=== PATIENT | male | born 1935 | race Two or more races ===

== ENCOUNTER 2016-03-15 11:42 | Inpatient (IN) | payer MEDICARE, OTHER ==
[~2016-03-15] VITALS: Ht 162.6 cm; Wt 59.0 kg
[~2016-03-15 11:42] MED LIST: BENAZEPRIL HCL10 MG ORAL; GLIPIZIDE5 MG ORAL; LOPID600 MG ORAL; NOVOLIN 70/305 UNIT1 SUBQ; NOVOLOG MI100 UNITS/ SUBQ
[2016-03-15] MEDS ORDERED: NKM (11:57)
[2016-03-15 12:30] VITALS: BP 158/72
[2016-03-15 13:10] LABS: BASOPHILS % (AUTO) 0.6 % (0.0-2.0); EOSINOPHILS % (AUTO) 2.1 % (0.0-3.0); LYMPHOCYTES % (AUTO) 23.6 % (20.0-45.0); MEAN CORPUSCULAR HEMOGLOBIN 28.8 PG (27.0-31.0); MEAN CORPUSCULAR HGB CONC 31.6 G/DL (32.0-36.0); MEAN CORPUSCULAR VOLUME 91 FL (80-99); MEAN PLATELET VOLUME 6.1 FL (6.5-10.1); MONOCYTES % (AUTO) 6.7 % (1.0-10.0); NEUTROPHILS % (AUTO) 66.9 % (45.0-75.0); PLATELET COUNT 354 K/UL (150-450); RED BLOOD COUNT 4.37 M/UL (4.70-6.10); RED CELL DISTRIBUTION WIDTH 13.8 % (11.6-14.8); WHITE BLOOD COUNT 10.6 K/UL (4.8-10.8)
[2016-03-15 13:23] LABS: TROPONIN I < 0.30 ng/mL (<=0.30)
[2016-03-15 13:24] LABS: ALANINE AMINOTRANSFERASE 6 U/L (3-41); ALBUMIN/GLOBULIN RATIO 0.7 (1.0-2.7); ANION GAP 12 (5-15); ASPARTATE AMINO TRANSFERASE 9 U/L (5-40); CALCIUM 8.7 mg/dL (8.6-10.2); CARBON DIOXIDE 32 mEQ/L (20-30); CHLORIDE 94 mEQ/L (98-107); CREATININE 3.1 mg/dL (0.7-1.2); HEMOLYSIS 3; POTASSIUM 3.6 mEQ/L (3.4-4.9); PROTHROMBIN TIME 9.7 SEC (9.30-11.50); SODIUM 138 mEQ/L (135-145); TOTAL PROTEIN 7.5 g/dL (6.6-8.7)
[2016-03-15 13:34] LABS: CKMB 1.7 ng/mL (< 6.7)
[2016-03-15 13:51] VITALS: BP 168/82
[2016-03-15] MEDS ORDERED: Lidocaine 1% 10mg/ml/Epi 0.005mg/ml 30ml vial INJ ONE (14:15)
[2016-03-15] MEDS ORDERED: Heparin Sod 1000 units/ml 10ml INJ ONE (14:15)
--- NOTE | 2016-03-15 15:00 | Emergency Room Report ---
History of Present Illness General Chief Complaint: General Complaint Source: Patient, Family Member Present Illness HPI Patient reports that he had dialysis on Sunday Today on attempting dialysis the catheter was not flushing Patient has a history of renal failure long-standing Has some questionable mild shortness of breath Denies any chest pain denies any back or flank pain Patient denies any fevers or chills As the patient was unable to get dialyzed he was sent to the ER for further eval The catheter is reported to have been placed last and the patient was here which appears to be on December Allergies: Coded Allergies: No Known Allergies (Unverified , 05/25/13) Patient History Past Medical History: see triage record Pertinent Family History: none Reviewed Nursing Documentation: PMH: Agreed, PSxH: Agreed Nursing Documentation-PMH Hx Cardiac Problems: Yes Hx Hypertension: Yes Hx Diabetes: Yes Hx Cancer: No Hx Gastrointestinal Problems: No Hx Dialysis: Yes - M W F Hx Neurological Problems: Yes Hx Cerebrovascular Accident: Yes Review of Systems All Other Systems: negative except mentioned in HPI Physical Exam Vital Signs Date Time Temp Pulse Resp B/P Pulse Ox O2 Delivery O2 Flow Rate FiO2 03/15/16 11:53 97.7 77 20 151/86 100 Room Air Sp02 EP Interpretation: reviewed, normal General Appearance: well appearing, no apparent distress Head: normocephalic, atraumatic Eyes: bilateral eye EOMI, bilateral eye PERRL ENT: hearing grossly normal, normal pharynx, TMs + canals normal, uvula midline Neck: full range of motion, supple, no meningismus, no bony tend Respiratory: lungs clear, normal breath sounds, no rhonchi, no respiratory distress, no retraction, no accessory muscle use Cardiovascular #1: normal peripheral pulses, regular rate, rhythm, no edema, no gallop, no JVD, no murmur Gastrointestinal: normal bowel sounds, non tender, soft, no mass, no organomegaly, non-distended, no guarding, no hernia, no pulsatile mass, no rebound Genitourinary: no CVA tenderness Musculoskeletal: normal inspection Neurologic: oriented x3, responsive, coffee urn attendant III-XII nml as tested, motor strength/ tone normal, sensory intact Psychiatric: mood/affect normal Skin: normal color, no rash, warm/dry, palpation normal Lymphatic: normal inspection, no adenopathy Medical Decision Making Diagnostic Impression: Primary Impression: acute renal failure Additional Impression: Dialysis complication ER Course Patient's catheters not able to be flushed at this time baseline blood work is obtained Patient's BUN and any are elevated in line with his renal failure potassium at this time is appropriate and did not require any acute intervention Patient has procedure ordered by radiology as negative for further care Labs Test 03/15/16 12:40 White Blood Count 10.6 K/UL (4.8-10.8) Red Blood Count 4.37 M/UL (4.70-6.10) Hemoglobin 12.6 G/DL (14.2-18.0) Hematocrit 39.9 % (42.0-52.0) Mean Corpuscular Volume 91 FL (80-99) Mean Corpuscular Hemoglobin 28.8 PG (27.0-31.0) Mean Corpuscular Hemoglobin Concent 31.6 G/DL (32.0-36.0) Red Cell Distribution Width 13.8 % (11.6-14.8) Platelet Count 354 K/UL (150-450) Mean Platelet Volume 6.1 FL (6.5-10.1) Neutrophils (%) (Auto) 66.9 % (45.0-75.0) Lymphocytes (%) (Auto) 23.6 % (20.0-45.0) Monocytes (%) (Auto) 6.7 % (1.0-10.0) Eosinophils (%) (Auto) 2.1 % (0.0-3.0) Basophils (%) (Auto) 0.6 % (0.0-2.0) Prothrombin Time 9.7 SEC (9.30-11.50) Prothromb Time International Ratio 1.0 (0.9-1.1) Activated Partial Thromboplast Time 28 SEC (23-33) Sodium Level 138 mEQ/L (135-145) Potassium Level 3.6 mEQ/L (3.4-4.9) Chloride Level 94 mEQ/L (98-107) Carbon Dioxide Level 32 mEQ/L (20-30) Anion Gap 12 (5-15) Blood Urea Nitrogen 27 mg/dL (7-23) Creatinine 3.1 mg/dL (0.7-1.2) Estimat Glomerular Filtration Rate mL/min (>60) Glucose Level 374 mg/dL (74-106) Calcium Level 8.7 mg/dL (8.6-10.2) Total Bilirubin < 0.2 mg/dL (0.0-1.2) Aspartate Amino Transf (AST/SGOT) 9 U/L (5-40) Alanine Aminotransferase (ALT/SGPT) 6 U/L (3-41) Alkaline Phosphatase 104 U/L (40-129) Total Creatine Kinase 26 U/L (38-174) Creatine Kinase MB 1.7 ng/mL (< 6.7) Creatine Kinase MB Relative Index 6.5 Troponin I < 0.30 ng/mL (<=0.30) Pro-B-Type Natriuretic Peptide 3384 pg/mL (0-450) Total Protein 7.5 g/dL (6.6-8.7) Albumin 3.3 g/dL (3.5-5.2) Globulin 4.2 g/dL Albumin/Globulin Ratio 0.7 (1.0-2.7) Rhythm Strip Diag. Results EP Interpretation: yes Rate: 77 Rhythm: NSR, no PVC's, no ectopy Chest X-Ray Diagnostic Results EP Interpretation: Yes Findings: no consolidation, no effusion, no pneumothorax Number of Views: 1 Last Vital Signs Date Time Temp Pulse Resp B/P Pulse Ox O2 Delivery O2 Flow Rate FiO2 03/15/16 13:51 73 16 168/82 100 Room Air 03/15/16 11:53 97.7 Status: improved Disposition: ADMITTED INPATIENT Condition: Serious Referrals: NON PHYSICIAN (PCP) DHARA AUSTIN D.O. Mar 15, 2016 15:00
--- NOTE | 2016-03-15 16:11 | Infectious Diseases Prog Note ---
Assessment/Plan Problems: (1) Dialysis catheter clot or failure Assessment & Plan: rule out sepsis, will send blood culture, recommend removal of the catheter and tip culture (2) Diabetes Assessment & Plan: recommend tight glycemic control to keep blood glucose between 80-120 (3) CVA (cerebral vascular accident) Assessment & Plan: stable, continue meds , follow with neurology Subjective Allergies: Coded Allergies: No Known Allergies (Unverified , 05/25/13) Objective Vital Signs Last 24 Hour Vital Signs Date Time Temp Pulse Resp B/P Pulse Ox O2 Delivery O2 Flow Rate FiO2 03/15/16 15:27 97.7 73 16 168/82 100 Room Air 03/15/16 13:51 73 16 168/82 100 Room Air 03/15/16 12:30 73 16 158/72 100 Room Air 03/15/16 11:53 97.7 77 20 151/86 100 Room Air Height (Feet): 5 Height (Inches): 4.00 Weight (Pounds): 130 Laboratory Tests Test 03/15/16 12:40 White Blood Count 10.6 K/UL (4.8-10.8) Red Blood Count 4.37 M/UL (4.70-6.10) L Hemoglobin 12.6 G/DL (14.2-18.0) L Hematocrit 39.9 % (42.0-52.0) L Mean Corpuscular Volume 91 FL (80-99) Mean Corpuscular Hemoglobin 28.8 PG (27.0-31.0) Mean Corpuscular Hemoglobin Concent 31.6 G/DL (32.0-36.0) L Red Cell Distribution Width 13.8 % (11.6-14.8) Platelet Count 354 K/UL (150-450) Mean Platelet Volume 6.1 FL (6.5-10.1) L Neutrophils (%) (Auto) 66.9 % (45.0-75.0) Lymphocytes (%) (Auto) 23.6 % (20.0-45.0) Monocytes (%) (Auto) 6.7 % (1.0-10.0) Eosinophils (%) (Auto) 2.1 % (0.0-3.0) Basophils (%) (Auto) 0.6 % (0.0-2.0) Prothrombin Time 9.7 SEC (9.30-11.50) Prothromb Time International Ratio 1.0 (0.9-1.1) Activated Partial Thromboplast Time 28 SEC (23-33) Sodium Level 138 mEQ/L (135-145) Potassium Level 3.6 mEQ/L (3.4-4.9) Chloride Level 94 mEQ/L (98-107) L Carbon Dioxide Level 32 mEQ/L (20-30) H Anion Gap 12 (5-15) Blood Urea Nitrogen 27 mg/dL (7-23) H Creatinine 3.1 mg/dL (0.7-1.2) H Estimat Glomerular Filtration Rate mL/min (>60) Glucose Level 374 mg/dL (74-106) H Calcium Level 8.7 mg/dL (8.6-10.2) Total Bilirubin < 0.2 mg/dL (0.0-1.2) Aspartate Amino Transf (AST/SGOT) 9 U/L (5-40) Alanine Aminotransferase (ALT/SGPT) 6 U/L (3-41) Alkaline Phosphatase 104 U/L (40-129) Total Creatine Kinase 26 U/L (38-174) L Creatine Kinase MB 1.7 ng/mL (< 6.7) Creatine Kinase MB Relative Index 6.5 Troponin I < 0.30 ng/mL (<=0.30) Pro-B-Type Natriuretic Peptide 3384 pg/mL (0-450) H Total Protein 7.5 g/dL (6.6-8.7) Albumin 3.3 g/dL (3.5-5.2) L Globulin 4.2 g/dL Albumin/Globulin Ratio 0.7 (1.0-2.7) L Jovita Mtz M.D. Mar 15, 2016 16:11
--- NOTE | 2016-03-15 16:15 | Consultation ---
Consult Note Consult Note HPI Patient reports that he had dialysis on Sunday Today on attempting dialysis the catheter was not flushing Patient has a history of renal failure long-standing Has some questionable mild shortness of breath Denies any chest pain denies any back or flank pain Patient denies any fevers or chills As the patient was unable to get dialyzed he was sent to the ER for further eval The catheter is reported to have been placed last and the patient was here which appears to be on December Hx Cardiac Problems: Yes Hx Hypertension: Yes Hx Diabetes: Yes Hx Dialysis: Yes - [facility] Hx Neurological Problems: Yes Hx Cerebrovascular Accident: Yes Assessment/Plan Status: Chronic renal failure- on HD h/o Metabolic Acidosis- h/o UTI DM OOC Change the Cath- HD- JILL MACEDO Mar 15, 2016 16:15
[2016-03-15 16:19] VITALS: BP 161/82
[2016-03-15] MEDS: GlipiZIDE 5mg tab ORAL SCH (18:15)
[2016-03-15 20:56] VITALS: BP 152/68
--- NOTE | 2016-03-15 22:18 | Consultation ---
DATE OF CONSULTATION: INFECTIOUS DISEASE CONSULTATION REQUESTING PHYSICIAN: Dolly Narvaez M.D. REASON FOR CONSULTATION: Malfunctioning dialysis catheter, rule out infection and sepsis. HISTORY OF PRESENT ILLNESS: The patient is an 80-year-old male with end-stage renal disease, on hemodialysis who had his dialysis catheter placed here in December last year, was sent to the emergency room for not being able to dialyze him at the dialysis center. The patient had his dialysis on Sunday, was supposed to get one today, but multiple attempts to dialyze him was not successful. The catheter was not flushing, so he was sent to the emergency room for possible evaluation of his dialysis catheter and removal with placement of a new hemodialysis catheter. There was some concern about catheter infection. So I was consulted by the primary provider for antibiotics recommendation and further evaluation. As of note, the patient is poor historian, cannot provide any history. PAST MEDICAL HISTORY: Significant for coronary artery disease, hypertension, diabetes, end-stage renal disease, on hemodialysis Sunday, Sunday, Sunday, CVA and dementia. PAST SURGICAL HISTORY: He had hemodialysis catheter placement in December last year. MEDICATIONS: He is on glipizide, benazepril, and gemfibrozil. ALLERGIES: He has no known drug allergy. SOCIAL HISTORY: Unable to obtain. FAMILY HISTORY: Unable to obtain. REVIEW OF SYSTEMS: Unable to obtain at this point. LABORATORY AND DIAGNOSTIC DATA: White count 10.6, hemoglobin 12.6, hematocrit of 39.9, and platelet count of 354,000. BUN of 27 and creatinine of 3.1. AST of 9, ALT of 6 and alkaline phosphatase of 104. INR of 1. PHYSICAL EXAMINATION: VITAL SIGNS: Temperature 97 degrees, pulse 75, respirations 20, blood pressure 161/82, and pulse oximetry 100% on room air. GENERAL: This is an elderly male in bed, awake, alert, oriented, not in distress. HEENT: Normocephalic and atraumatic. Pupils both reactive to light equally. Moist oral mucosa. NECK: Supple. No lymphadenopathy. CARDIOVASCULAR: Regular rate and rhythm. No murmur. LUNGS: Clear bilaterally. No wheezing or rhonchi. Normal breathing efforts. ABDOMEN: Soft, nontender, and nondistended. Positive bowel sounds. No hepatosplenomegaly. No ascites. EXTREMITIES: No edema. No cyanosis. ASSESSMENT AND PLAN: 1. Dialysis catheter clot of failure, rule out sepsis. We will send blood culture. Recommend removal of the catheter and same to be sent for culture. We will keep off antibiotics for now. Site does not look infected. 2. Diabetes. Recommend tight glycemic control to keep blood glucose between 80 to 120. 3. Cerebrovascular accident, stable. Continue medications. Follow up with Neurology. Jovita Mtz M.D. DR: SALOME JOB#: [id number] CC:
[2016-03-16] VITALS (12 sets, daily range): BP systolic 123–195; BP diastolic 50–101
--- NOTE | 2016-03-16 02:07 | Consultation ---
DATE OF CONSULTATION: 03/15/2016 HEMATOLOGY/ONCOLOGY CONSULTATION REQUESTING PHYSICIAN: Dolly Narvaez M.D. REASON FOR CONSULTATION: Evaluation of anemia. IDENTIFICATION: Dear Dr. Brice Alberto, The patient is a pleasant 80-year-old male well known to me. I have evaluated the patient back in December 2015 with a past medical history significant for end-stage renal disease, on hemodialysis, anemia secondary to kidney disease, anemia secondary to chronic disease with history of leukocytosis, metabolic acidosis, and end-stage renal disease, at this time presents with a malfunctioning access, gets dialysis three times a week and at this time is unable to get dialysis. The access to the right subclavian is rather new, placed about two months ago. He is Turkish speaking only and only oriented to person, daughter was by the bedside at the time of the examination. PAST MEDICAL HISTORY: Hypertension, diabetes mellitus, dyslipidemic, CKD, and stroke with associated left-sided weakness. PAST SURGICAL HISTORY: Subclavian access. MEDICATIONS: Currently unknown. The patient's daughter is unable to provide information. ALLERGIES: No known drug allergies. FAMILY HISTORY: High blood pressure, diabetes mellitus. REVIEW OF SYSTEMS: Difficult to obtain as the patient is only oriented to person. PHYSICAL EXAMINATION: GENERAL: The patient is in distress. VITAL SIGNS: Temperature is 97.7 degrees Fahrenheit, pulse 77, respiratory rate 12, blood pressure 168/82, and pulse oximetry 100% on room air. PULMONARY: Decreased breath sounds. CARDIOVASCULAR: Regular rate. GASTROINTESTINAL: Abdomen is soft, nontender, and nondistended. No ascites. EXTREMITIES: Has 1+ edema. LABORATORY AND DIAGNOSTIC DATA: WBC 7.6, hemoglobin 12.6, hematocrit 40, and platelet count of 254,000. BUN of 27 and creatinine 0.1. INR of 1. IMAGING: Duplex of the lower extremities shows no evidence of DVT from December 2015. ASSESSMENT: 1. Anemia, secondary to kidney disease. 2. Anemia, secondary to chronic disease. 3. Malfunctioning subclavian access, continue to monitor, to be seen by IR. 4. History of leukocytosis, now resolved. 5. Chronic renal failure, on hemodialysis. 6. History of hyperkalemia, currently resolved. 7. History of stroke. 8. Diabetes mellitus. RECOMMENDATIONS: 1. Monitor counts. 2. Maintain hemoglobin above 7 and platelet count above 10,000. 3. DVT prophylaxis with heparin. 4. GI prophylaxis as needed. 5. Pain control. 6. Malfunctioning access repair. 7. Hemodialysis three times a week to continue. 8. Imaging review. 9. Peripheral smear ordered. 10. We will order for ferritin. 11. Followup on other service recommendations. 12. Discussed with staff. Thank you, Dr. Brice Alberto, for this kind referral. Please do not hesitate to contact me if you have any further questions. Gigi Aguirre M.D. DR: MER JOB#: [id number] CC:
[2016-03-16] MEDS: GlipiZIDE 5mg tab ORAL SCH ×2 (05:58→18:20)
[2016-03-16 07:02] LABS: BASOPHILS % (AUTO) 0.8 % (0.0-2.0); EOSINOPHILS % (AUTO) 2.5 % (0.0-3.0); LYMPHOCYTES % (AUTO) 28.2 % (20.0-45.0); MEAN CORPUSCULAR HGB CONC 31.8 G/DL (32.0-36.0); MEAN CORPUSCULAR VOLUME 91 FL (80-99); MONOCYTES % (AUTO) 7.4 % (1.0-10.0); PLATELET COUNT 346 K/UL (150-450); RED BLOOD COUNT 4.14 M/UL (4.70-6.10); RED CELL DISTRIBUTION WIDTH 13.7 % (11.6-14.8)
[2016-03-16 07:37] LABS: ALANINE AMINOTRANSFERASE 6 U/L (3-41); ALBUMIN/GLOBULIN RATIO 0.7 (1.0-2.7); ANION GAP 13 (5-15); ASPARTATE AMINO TRANSFERASE 10 U/L (5-40); CALCIUM 8.8 mg/dL (8.6-10.2); CARBON DIOXIDE 30 mEQ/L (20-30); CHLORIDE 95 mEQ/L (98-107); CHOLESTEROL 182 mg/dL (< 200); CHOLESTEROL/HDL RATIO 5.9 (3.3-4.4); CREATININE 3.1 mg/dL (0.7-1.2); CRP QUANT 2.1 mg/dL (< 0.5); HEMOLYSIS 2; LDL CHOLESTEROL (CALC.) 99 mg/dL (60-99); MAGNESIUM 1.8 mg/dL (1.7-2.5); POTASSIUM 4.1 mEQ/L (3.4-4.9); SODIUM 138 mEQ/L (135-145); TOTAL PROTEIN 7.4 g/dL (6.6-8.7); URIC ACID 6.4 mg/dL (3.0-7.5)
[2016-03-16 07:56] LABS: HEMOGLOBIN A1C 10.4 % (< 6.0)
[2016-03-16] MEDS ORDERED: Lidocaine 1% Plain 30 ml INJ ONE (10:00)
[2016-03-16] MEDS ORDERED: Sodium Bicarbonate 8.4% 50ml Inj IV ONE (10:00)
[2016-03-16] MEDS ORDERED: Heparin 2000 units/Ns 1000ml INJ ONE (10:00)
[2016-03-16] MEDS ORDERED: Lidocaine 1% 10mg/ml/Epi 0.005mg/ml 30ml vial INJ ONE (10:00)
[2016-03-16] MEDS ORDERED: Heparin Sod 1000 units/ml 10ml INJ ONE (10:00)
[2016-03-16] MEDS: Benazepril 10mg tab ORAL SCH ×2 (13:53→21:51)
--- NOTE | 2016-03-16 15:09 | General Progress Note ---
Assessment/Plan Status: stable Status Narrative radiologist found the catheter functioning ! Assessment/Plan Chronic renal failure- on HD h/o Metabolic Acidosis- h/o UTI DM OOC Plan: HD in am- BS control- DC if stable in am Subjective ROS Limited/Unobtainable: No Constitutional: Reports: malaise Allergies: Coded Allergies: No Known Allergies (Unverified , 05/25/13) Objective Last 24 Hour Vital Signs Date Time Temp Pulse Resp B/P Pulse Ox O2 Delivery O2 Flow Rate FiO2 03/16/16 13:53 140/78 03/16/16 12:25 97.9 78 20 129/50 97 Room Air 03/16/16 11:05 70 10 163/75 100 Room Air 03/16/16 11:00 71 14 158/79 98 Room Air 03/16/16 10:55 72 25 138/69 98 Room Air 03/16/16 10:50 72 19 159/77 99 Room Air 03/16/16 09:59 72 19 03/16/16 08:54 97.7 68 19 123/70 97 Room Air 03/16/16 04:00 97.7 72 18 147/74 98 Room Air 03/16/16 00:00 97.7 78 18 158/85 100 Room Air 03/15/16 20:56 76 152/68 03/15/16 18:15 161/82 03/15/16 16:19 97.0 75 20 161/82 100 Room Air 03/15/16 15:27 97.7 73 16 168/82 100 Room Air Intake and Output 03/15/16 03/16/16 19:00 07:00 Intake Total 360 ml 400 ml Balance 360 ml 400 ml Intake Oral 360 ml 400 ml # Voids 1 2 # Bowel Movements 2 Laboratory Tests 03/16/16 05:00: White Blood Count 10.0, Red Blood Count 4.14L, Hemoglobin 12.0L, Hematocrit 37.7L, Mean Corpuscular Volume 91, Mean Corpuscular Hemoglobin 29.0, Mean Corpuscular Hemoglobin Concent 31.8L, Red Cell Distribution Width 13.7, Platelet Count 346, Mean Platelet Volume 6.0L, Neutrophils (%) (Auto) 61.0, Lymphocytes (%) (Auto) 28.2, Monocytes (%) (Auto) 7.4, Eosinophils (%) (Auto) 2.5, Basophils (%) (Auto) 0.8, Sodium Level 138, Potassium Level 4.1, Chloride Level 95L, Carbon Dioxide Level 30, Anion Gap 13, Blood Urea Nitrogen 30H, Creatinine 3.1H, Estimat Glomerular Filtration Rate , Glucose Level 184#H, Hemoglobin A1c 10.4H, Uric Acid 6.4, Calcium Level 8.8, Phosphorus Level 3.0, Magnesium Level 1.8, Total Bilirubin 0.2, Aspartate Amino Transf (AST/SGOT) 10, Alanine Aminotransferase (ALT/SGPT) 6, Alkaline Phosphatase 108, C-Reactive Protein, Quantitative 2.1H, Pro-B-Type Natriuretic Peptide 3308H, Total Protein 7.4, Albumin 3.2L, Globulin 4.2, Albumin/Globulin Ratio 0.7L, Triglycerides Level 260H, Cholesterol Level 182, LDL Cholesterol 99, HDL Cholesterol 31, Cholesterol/HDL Ratio 5.9H Height (Feet): 5 Height (Inches): 4.00 Weight (Pounds): 130 General Appearance: no apparent distress Objective PE not changed JILL MACEDO Mar 16, 2016 15:09
--- NOTE | 2016-03-16 16:58 | Diagnostic Imaging Report ---
Indication:Elevated Bun and Creatinine. Technique: Grayscale and duplex Doppler imaging of the kidneys performed. Comparison: CT of 12/31/15 Findings: There is bilateral hydronephrosis, moderate in degree. This was noted on the previous CT as well and may be on the basis of the prostate hypertrophy. Consultation by urologic surgeon is suggested. Cystoscopy may be needed. The urinary bladder is notable for a fluid debris level as well as at 1.67 m stone noted within the bladder lumen. The bladder is mildly distended. Trabeculation and slight thickening of the wall the urinary bladder noted. Prostate gland is enlarged measures 7 x 4.8 x 5.9 cm, which corresponds to prostate volume of approximately 100 cc. IVC is unremarkable in appearance. Both kidneys measure about 10-11 CM in length. Cortical echogenicity is abnormally increased which is suggestive of medical renal disease. Impression: Moderate bilateral hydronephrosis. Previous CT examination showed similar findings. The finding is likely associated with the abnormal urinary bladder and/or involvement of the bladder base by an enlarged prostate gland or mass. Further evaluation by a urologist is recommended. Bladder calculus with intraluminal debris and/or blood. Echogenic kidneys consistent with medical renal disease.
--- NOTE | 2016-03-16 17:33 | Infectious Diseases Prog Note ---
Assessment/Plan Problems: (1) Dialysis catheter clot or failure Assessment & Plan: rule out sepsis, await blood culture, S/P HD cath removal. (2) Diabetes Assessment & Plan: recommend tight glycemic control to keep blood glucose between 80-120 (3) CVA (cerebral vascular accident) Assessment & Plan: stable, continue meds , follow with neurology Subjective Constitutional: Denies: anorexia, chills, drenching sweats, fatigue, fever, no symptoms, other HEENT: Denies: congestion, coryza, dysphagia, hearing change, no symptoms, other, visual change Respiratory: Denies: dry cough, no symptoms, other, productive cough, shortness of breath Breasts: Denies: discharge, no symptoms, other, swelling, tenderness Cardiovascular: Denies: chest pain, dyspnea on exertion, no symptoms, other, palpitations Gastrointestinal/Abdominal: Denies: bloating, blood in stool, constipation, diarrhea, nausea, no symptoms, other, vomiting Genitourinary: Denies: dysuria, frequency, hematuria, no symptoms, nocturia, other Neurologic: Denies: confusion, headache, no symptoms, numbness, other, weakness Psychiatric: Denies: anxiety, depression, no symptoms, other Allergies: Coded Allergies: No Known Allergies (Unverified , 05/25/13) Subjective he was doing well, had new HD cath placed with site looks intact, no skin redness or discharge. denied any fever or chills. Objective Vital Signs Last 24 Hour Vital Signs Date Time Temp Pulse Resp B/P Pulse Ox O2 Delivery O2 Flow Rate FiO2 03/16/16 13:53 140/78 03/16/16 12:25 97.9 78 20 129/50 97 Room Air 03/16/16 11:05 70 10 163/75 100 Room Air 03/16/16 11:00 71 14 158/79 98 Room Air 03/16/16 10:55 72 25 138/69 98 Room Air 03/16/16 10:50 72 19 159/77 99 Room Air 03/16/16 09:59 72 19 03/16/16 08:54 97.7 68 19 123/70 97 Room Air 03/16/16 04:00 97.7 72 18 147/74 98 Room Air 03/16/16 00:00 97.7 78 18 158/85 100 Room Air 03/15/16 20:56 76 152/68 03/15/16 18:15 161/82 Height (Feet): 5 Height (Inches): 4.00 Weight (Pounds): 130 General Appearance: WD/WN, no acute distress HEENT: normocephalic, atraumatic, anicteric, mucous membranes moist Respiratory/Chest: chest wall non-tender, lungs clear, normal breath sounds, no respiratory distress, no accessory muscle use Cardiovascular: normal peripheral pulses, normal rate, regular rhythm, no gallop/murmur, no JVD Abdomen: normal bowel sounds, soft, non tender, no organomegaly, non distended , no mass Extremities: no cyanosis, no clubbing Skin: no rash, no lesions, no ulcers Laboratory Tests Test 03/16/16 05:00 White Blood Count 10.0 K/UL (4.8-10.8) Red Blood Count 4.14 M/UL (4.70-6.10) L Hemoglobin 12.0 G/DL (14.2-18.0) L Hematocrit 37.7 % (42.0-52.0) L Mean Corpuscular Volume 91 FL (80-99) Mean Corpuscular Hemoglobin 29.0 PG (27.0-31.0) Mean Corpuscular Hemoglobin Concent 31.8 G/DL (32.0-36.0) L Red Cell Distribution Width 13.7 % (11.6-14.8) Platelet Count 346 K/UL (150-450) Mean Platelet Volume 6.0 FL (6.5-10.1) L Neutrophils (%) (Auto) 61.0 % (45.0-75.0) Lymphocytes (%) (Auto) 28.2 % (20.0-45.0) Monocytes (%) (Auto) 7.4 % (1.0-10.0) Eosinophils (%) (Auto) 2.5 % (0.0-3.0) Basophils (%) (Auto) 0.8 % (0.0-2.0) Sodium Level 138 mEQ/L (135-145) Potassium Level 4.1 mEQ/L (3.4-4.9) Chloride Level 95 mEQ/L (98-107) L Carbon Dioxide Level 30 mEQ/L (20-30) Anion Gap 13 (5-15) Blood Urea Nitrogen 30 mg/dL (7-23) H Creatinine 3.1 mg/dL (0.7-1.2) H Estimat Glomerular Filtration Rate mL/min (>60) Glucose Level 184 mg/dL (74-106) #H Hemoglobin A1c 10.4 % (< 6.0) H Uric Acid 6.4 mg/dL (3.0-7.5) Calcium Level 8.8 mg/dL (8.6-10.2) Phosphorus Level 3.0 mg/dL (2.5-4.8) Magnesium Level 1.8 mg/dL (1.7-2.5) Total Bilirubin 0.2 mg/dL (0.0-1.2) Aspartate Amino Transf (AST/SGOT) 10 U/L (5-40) Alanine Aminotransferase (ALT/SGPT) 6 U/L (3-41) Alkaline Phosphatase 108 U/L (40-129) C-Reactive Protein, Quantitative 2.1 mg/dL (< 0.5) H Pro-B-Type Natriuretic Peptide 3308 pg/mL (0-450) H Total Protein 7.4 g/dL (6.6-8.7) Albumin 3.2 g/dL (3.5-5.2) L Globulin 4.2 g/dL Albumin/Globulin Ratio 0.7 (1.0-2.7) L Triglycerides Level 260 mg/dL (< 150) H Cholesterol Level 182 mg/dL (< 200) LDL Cholesterol 99 mg/dL (60-99) HDL Cholesterol 31 mg/dL (> 60) Cholesterol/HDL Ratio 5.9 (3.3-4.4) H Current Medications Medications (Trade) Dose Ordered Sig/Stephany Route PRN Reason Start Time Stop Time Status Last Admin Dose Admin Benazepril HCl (Lotensin) 10 mg Q12HR ORAL 03/16/16 09:00 04/15/16 08:59 03/16/16 13:53 Gemfibrozil (Lopid) 600 mg TWICE A DAY ORAL 03/15/16 21:00 04/14/16 20:59 03/16/16 13:53 Glipizide (Glucotrol) 5 mg BIAC ORAL 03/15/16 16:30 04/14/16 16:29 03/15/16 18:15 Jovita Mtz M.D. Mar 16, 2016 17:33
--- NOTE | 2016-03-16 20:27 | History and Physical Report ---
DATE OF ADMISSION: 03/15/2016 HISTORY OF PRESENT ILLNESS: The patient is a hemodialysis patient. The patient problems with line not working. The patient also is on hemodialysis. The patient also has chronic pain syndrome and the dialysis catheter is not working, it has failed. The patient needs some dialysis and is to be admitted. The patient also has some shortness of breath as well. PAST MEDICAL HISTORY: Hypertension, end-stage renal disease, NIDDM, history of CVA as well as GERD. The patient is getting hemodialysis and hyperlipidemia. PAST SURGICAL HISTORY: Related to dialysis access. ALLERGIES: No known allergy. MEDICATIONS: Unknown medications. At this point, we do not have . SOCIAL HISTORY: The patient denies history of alcohol or use of illicit drugs. FAMILY HISTORY: Noncontributory. REVIEW OF SYSTEMS: HEENT: Denies headaches. Respiratory: Does have shortness of breath. Denies cough. Cardiovascular: No chest pain. Gastrointestinal: Denies nausea, vomiting, or diarrhea. He states that he does have chronic . He does have some pain, which is very mild pain. Extremities: . Central Nervous System: Denies change in vision or speech pattern. Feels weak. PHYSICAL EXAMINATION: VITAL SIGNS: Temperature is 97 degrees, pulse 75 and blood pressure 161/80. HEENT: PERRLA. NECK: Supple. No lymphadenopathy. CHEST: Clear to auscultation. GASTROINTESTINAL: Soft, nontender and nondistended. No organomegaly. EXTREMITIES: No edema. NEUROLOGIC: Reflexes are equal on both sides. Moves all four extremities. LABORATORY AND DIAGNOSTIC DATA: , and platelet 254,000. Sodium 138, potassium 3.6, BUN 27, creatinine 3.1 and glucose 374. ASSESSMENT AND PLAN: Elevated blood sugar, dialysis line. I have asked Dr. Mtz, Dr. Garcia and Dr. Les Marie, and to see the patient to rule out any infectious process as well dialysis line. Dolly Narvaez M.D. DR: JIGNESH JOB#: [id number] CC:
[2016-03-17] VITALS (8 sets, daily range): BP systolic 144–181; BP diastolic 71–94
--- NOTE | 2016-03-17 00:29 | General Progress Note ---
Assessment/Plan Assessment/Plan 1. Anemia, secondary to Chronic kidney disease/ ESRD. 2. Malfunctioning subclavian access, continue to monitor, to be seen by IR. 3. History of hyperkalemia, currently resolved 4. History of leukocytosis, now resolved. 5. Chronic renal failure, on hemodialysis. 6. History of stroke. 8. Diabetes mellitus. RECOMMENDATIONS: 1. Maintain hemoglobin above 7 and platelet count above 10,000. 2. DVT prophylaxis with heparin. 3. GI prophylaxis as needed. 4. Pain control. 5. Malfunctioning access repair. 6. Hemodialysis three times a week to continue. 7. Peripheral smear ordered. 8. We will order for ferritin. 9. Followup on other service recommendations. 10. Discussed with staff. Subjective Constitutional: Reports: no symptoms HEENT: Reports: no symptoms Cardiovascular: Reports: no symptoms Respiratory: Reports: no symptoms Gastrointestinal/Abdominal: Reports: no symptoms Genitourinary: Reports: no symptoms Endocrine: Reports: no symptoms Hematologic/Lymphatic: Reports: anemia Allergies: Coded Allergies: No Known Allergies (Unverified , 05/25/13) Objective Last 24 Hour Vital Signs Date Time Temp Pulse Resp B/P Pulse Ox O2 Delivery O2 Flow Rate FiO2 03/17/16 00:00 97.0 71 20 171/94 99 Room Air 03/16/16 21:51 185/88 03/16/16 21:41 76 185/88 03/16/16 20:12 97.5 77 20 191/89 97 Room Air 03/16/16 18:20 195/101 03/16/16 16:00 97.3 78 20 195/101 100 Room Air 03/16/16 13:53 140/78 03/16/16 12:25 97.9 78 20 129/50 97 Room Air 03/16/16 11:05 70 10 163/75 100 Room Air 03/16/16 11:00 71 14 158/79 98 Room Air 03/16/16 10:55 72 25 138/69 98 Room Air 03/16/16 10:50 72 19 159/77 99 Room Air 03/16/16 09:59 72 19 03/16/16 08:54 97.7 68 19 123/70 97 Room Air Intake and Output 03/16/16 03/16/16 11:00 23:00 Intake Total 0 ml 585 ml Balance 0 ml 585 ml Intake Oral 0 ml 585 ml # Voids 1 3 # Bowel Movements 1 Laboratory Tests 03/16/16 05:00: White Blood Count 10.0, Red Blood Count 4.14L, Hemoglobin 12.0L, Hematocrit 37.7L, Mean Corpuscular Volume 91, Mean Corpuscular Hemoglobin 29.0, Mean Corpuscular Hemoglobin Concent 31.8L, Red Cell Distribution Width 13.7, Platelet Count 346, Mean Platelet Volume 6.0L, Neutrophils (%) (Auto) 61.0, Lymphocytes (%) (Auto) 28.2, Monocytes (%) (Auto) 7.4, Eosinophils (%) (Auto) 2.5, Basophils (%) (Auto) 0.8, Sodium Level 138, Potassium Level 4.1, Chloride Level 95L, Carbon Dioxide Level 30, Anion Gap 13, Blood Urea Nitrogen 30H, Creatinine 3.1H, Estimat Glomerular Filtration Rate , Glucose Level 184#H, Hemoglobin A1c 10.4H, Uric Acid 6.4, Calcium Level 8.8, Phosphorus Level 3.0, Magnesium Level 1.8, Total Bilirubin 0.2, Aspartate Amino Transf (AST/SGOT) 10, Alanine Aminotransferase (ALT/SGPT) 6, Alkaline Phosphatase 108, C-Reactive Protein, Quantitative 2.1H, Pro-B-Type Natriuretic Peptide 3308H, Total Protein 7.4, Albumin 3.2L, Globulin 4.2, Albumin/Globulin Ratio 0.7L, Triglycerides Level 260H, Cholesterol Level 182, LDL Cholesterol 99, HDL Cholesterol 31, Cholesterol/HDL Ratio 5.9H Height (Feet): 5 Height (Inches): 4.00 Weight (Pounds): 130 General Appearance: no apparent distress EENT: PERRL/EOMI Neck: supple Cardiovascular: normal rate Respiratory/Chest: no respiratory distress Extremities: non-tender Edema: 1+ Leg (L), 1+ Leg (R) Skin: warm/dry Gigi Aguirre Mar 17, 2016 00:29
[2016-03-17] MEDS: GlipiZIDE 5mg tab ORAL SCH ×3 (06:29→20:49)
[2016-03-17 07:16] LABS: ANION GAP 14 (5-15); CALCIUM 8.9 mg/dL (8.6-10.2); CARBON DIOXIDE 28 mEQ/L (20-30); CHLORIDE 98 mEQ/L (98-107); HEMOLYSIS 1; POTASSIUM 3.9 mEQ/L (3.4-4.9); SODIUM 140 mEQ/L (135-145)
[2016-03-17] MEDS: Benazepril 10mg tab ORAL SCH ×3 (09:00→20:49)
--- NOTE | 2016-03-17 10:48 | Anethesia Preoperative Eval ---
Anesthesia Pre-op PMH/ROS General Date of Evaluation: Mar 17, 2016 Anesthesiologist: Maximino ASA Score: ASA 3 Mallampati Score Class I : Soft palate, uvula, fauces, pillars visible Class II: Soft palate, uvula, fauces visible Class III: Soft palate, base of uvula visible Class IV: Only hard plate visible Mallampati Classification: Class II Surgeon: Bud Diagnosis: ESRD Surgical Procedure: Left arm AV shunt placement Anesthesia History: none Family History: no anesthesia problems Allergies: Coded Allergies: No Known Allergies (Unverified , 05/25/13) Medications: see eMAR Past Medical History Cardiovascular: Reports: HTN, other - HLD, Denies: CAD, [place], arrhythmia, valve dz Pulmonary: Denies: COPD, JASMIN, asthma, other Gastrointestinal/Genitourinary: Reports: ESRD - on HD-M,W,F, GERD, Denies: CRI, other Neurologic/Psychiatric: Reports: CVA, other - chronic pain syndrome, Denies: TIA, dementia, depression/anxiety Endocrine: Reports: DM, Denies: hypothyroidism, other, steroids HEENT: Denies: EKWOK (L), EKWOK (R), cataract (L), cataract (R), glaucoma, other Hematology/Immune: Reports: anemia - chronic, Denies: DVT, bleeding disorder, other Musculoskeletal/Integumentary: Denies: DDD, DJD, OA, RA, edema, other PSxH Narrative: ex-lap Anesthesia Pre-op Phys. Exam Physician Exam Last Vital Signs Date Time Temp Pulse Resp B/P Pulse Ox O2 Delivery O2 Flow Rate FiO2 03/17/16 09:00 144/73 03/17/16 08:54 98.0 67 20 99 Room Air Constitutional: NAD Cardiovascular: RRR Respiratory: CTA Airway Exam Mallampati Score: Class II Anesthesia Pre-op A/P Labs Chemistry Test 03/17/16 05:15 Sodium Level 140 mEQ/L (135-145) Potassium Level 3.9 mEQ/L (3.4-4.9) Chloride Level 98 mEQ/L (98-107) Carbon Dioxide Level 28 mEQ/L (20-30) Anion Gap 14 (5-15) Blood Urea Nitrogen 33 mg/dL (7-23) H Creatinine 3.0 mg/dL (0.7-1.2) H Estimat Glomerular Filtration Rate mL/min (>60) Glucose Level 174 mg/dL (74-106) H Calcium Level 8.9 mg/dL (8.6-10.2) Studies Pre-op Studies: EKG - NSR at 77, CXR - No acute cardiopulmonary process Risk Assessment & Plan Assessment: ASA III Plan: GA Status Change Before Surgery: No Pre-Antibiotics Drug: TBD AMY MACE M.D. Mar 17, 2016 10:48
--- NOTE | 2016-03-17 11:28 | General Progress Note ---
Assessment/Plan Problem List: (1) Urinary retention (2) UTI (lower urinary tract infection) ICD Codes: N39.0 - Urinary tract infection, site not specified SNOMED: 5639743 (3) Dialysis complication ICD Codes: T82.898A - Other specified complication of vascular prosthetic devices, implants and grafts, initial encounter SNOMED: 17510766, 14019934, 390920106 (4) Diabetes ICD Codes: E11.9 - Type 2 diabetes mellitus without complications SNOMED: 48481478 (5) CVA (cerebral vascular accident) ICD Codes: I63.9 - Cerebral infarction, unspecified SNOMED: 862559015 (6) Dialysis catheter clot or failure SNOMED: 95583241 Status: progressing Assessment/Plan afebrile hd access per radiology or dr joseph elevated bp treatment per dr gordon Subjective ROS Limited/Unobtainable: Yes Constitutional: Reports: no symptoms Allergies: Coded Allergies: No Known Allergies (Unverified , 05/25/13) Objective Last 24 Hour Vital Signs Date Time Temp Pulse Resp B/P Pulse Ox O2 Delivery O2 Flow Rate FiO2 03/17/16 09:00 144/73 03/17/16 08:54 98.0 67 20 144/73 99 Room Air 03/17/16 04:29 96.2 65 18 181/86 99 Room Air 03/17/16 00:00 97.0 71 20 171/94 99 Room Air 03/16/16 21:51 185/88 03/16/16 21:41 76 185/88 03/16/16 20:12 97.5 77 20 191/89 97 Room Air 03/16/16 18:20 195/101 03/16/16 16:00 97.3 78 20 195/101 100 Room Air 03/16/16 13:53 140/78 03/16/16 12:25 97.9 78 20 129/50 97 Room Air Intake and Output 03/16/16 03/17/16 18:59 06:59 Intake Total 360 ml 665 ml Output Total 200 ml Balance 360 ml 465 ml Intake Oral 360 ml 665 ml Output Urine Total 200 ml # Voids 1 2 Laboratory Tests 03/17/16 05:15: Sodium Level 140, Potassium Level 3.9, Chloride Level 98, Carbon Dioxide Level 28, Anion Gap 14, Blood Urea Nitrogen 33H, Creatinine 3.0H, Estimat Glomerular Filtration Rate , Glucose Level 174H, Calcium Level 8.9 Height (Feet): 5 Height (Inches): 4.00 Weight (Pounds): 130 General Appearance: confused Cardiovascular: normal rate Respiratory/Chest: chest wall non-tender Abdomen: soft Dolly Narvaez MD Mar 17, 2016 11:28
[2016-03-17 12:03] LABS: CREATININE 3.1 mg/dL (0.7-1.2)
--- NOTE | 2016-03-17 15:48 | General Progress Note ---
Assessment/Plan Status: unchanged Assessment/Plan Chronic renal failure- on HD h/o Metabolic Acidosis- h/o UTI DM OOC HTN bilateral Squire JENNIFER: Moderate bilateral hydronephrosis. Previous CT examination showed similar findings. The finding is likely associated with the abnormal urinary bladder and/or involvement of the bladder base by an enlarged prostate gland or mass. Further evaluation by a urologist is recommended. Bladder calculus with intraluminal debris and/or blood. Echogenic kidneys consistent with medical renal disease. Plan: Hold HD - Uro eval- 24 H urine CrCl BS control- adjust BP meds Subjective ROS Limited/Unobtainable: No Constitutional: Reports: malaise, weakness Allergies: Coded Allergies: No Known Allergies (Unverified , 05/25/13) Objective Last 24 Hour Vital Signs Date Time Temp Pulse Resp B/P Pulse Ox O2 Delivery O2 Flow Rate FiO2 03/17/16 12:27 157/76 03/17/16 12:11 97.3 71 20 157/76 100 Room Air 03/17/16 09:00 144/73 03/17/16 08:54 98.0 67 20 144/73 99 Room Air 03/17/16 04:29 96.2 65 18 181/86 99 Room Air 03/17/16 00:00 97.0 71 20 171/94 99 Room Air 03/16/16 21:51 185/88 03/16/16 21:41 76 185/88 03/16/16 20:12 97.5 77 20 191/89 97 Room Air 03/16/16 18:20 195/101 03/16/16 16:00 97.3 78 20 195/101 100 Room Air Intake and Output 03/16/16 03/17/16 19:00 07:00 Intake Total 360 ml 665 ml Output Total 200 ml Balance 360 ml 465 ml Intake Oral 360 ml 665 ml Output Urine Total 200 ml # Voids 1 2 Laboratory Tests 03/17/16 05:15: Sodium Level 140, Potassium Level 3.9, Chloride Level 98, Carbon Dioxide Level 28, Anion Gap 14, Blood Urea Nitrogen 33H, Creatinine 3.1H, Estimat Glomerular Filtration Rate , Glucose Level 174H, Calcium Level 8.9 Height (Feet): 5 Height (Inches): 4.00 Weight (Pounds): 130 General Appearance: no apparent distress Objective PE not changed JILL MACEDO Mar 17, 2016 15:48
[2016-03-17] MEDS: NovoLOG Insulin Flexpen SUBQ SCH ×2 (16:34→20:52)
--- NOTE | 2016-03-17 17:27 | Infectious Diseases Prog Note ---
Assessment/Plan Problems: (1) Colonization with VRE (vancomycin-resistant enterococcus) Assessment & Plan: keep in contact isolation (2) Dialysis catheter clot or failure Assessment & Plan: rule out sepsis, await blood culture, S/P HD cath removal. (3) Diabetes Assessment & Plan: recommend tight glycemic control to keep blood glucose between 80-120 (4) CVA (cerebral vascular accident) Assessment & Plan: stable, continue meds , follow with neurology Subjective Constitutional: Denies: anorexia, chills, drenching sweats, fatigue, fever, no symptoms, other HEENT: Denies: congestion, coryza, dysphagia, hearing change, no symptoms, other, visual change Respiratory: Denies: dry cough, no symptoms, other, productive cough, shortness of breath Breasts: Denies: discharge, no symptoms, other, swelling, tenderness Cardiovascular: Denies: chest pain, dyspnea on exertion, no symptoms, other, palpitations Gastrointestinal/Abdominal: Denies: bloating, blood in stool, constipation, diarrhea, nausea, no symptoms, other, vomiting Genitourinary: Denies: dysuria, frequency, hematuria, no symptoms, nocturia, other Neurologic: Denies: confusion, headache, no symptoms, numbness, other, weakness Psychiatric: Denies: anxiety, depression, no symptoms, other Skin: Denies: no symptoms, other, rash, ulcer Endocrine: Denies: feels cold, feels warm, no symptoms, other Allergies: Coded Allergies: No Known Allergies (Unverified , 05/25/13) Subjective he was doing well, had new HD cath placed with site looks intact, no skin redness or discharge. denied any fever or chills. Objective Vital Signs Last 24 Hour Vital Signs Date Time Temp Pulse Resp B/P Pulse Ox O2 Delivery O2 Flow Rate FiO2 03/17/16 16:09 97.0 82 20 161/86 100 Room Air 03/17/16 12:27 157/76 03/17/16 12:11 97.3 71 20 157/76 100 Room Air 03/17/16 09:00 144/73 03/17/16 08:54 98.0 67 20 144/73 99 Room Air 03/17/16 04:29 96.2 65 18 181/86 99 Room Air 03/17/16 00:00 97.0 71 20 171/94 99 Room Air 03/16/16 21:51 185/88 03/16/16 21:41 76 185/88 03/16/16 20:12 97.5 77 20 191/89 97 Room Air 03/16/16 18:20 195/101 Height (Feet): 5 Height (Inches): 4.00 Weight (Pounds): 130 General Appearance: WD/WN, no acute distress HEENT: normocephalic, atraumatic, anicteric, mucous membranes moist Respiratory/Chest: chest wall non-tender, lungs clear, normal breath sounds, no accessory muscle use Cardiovascular: normal peripheral pulses, normal rate, regular rhythm, regularly irregular, no gallop/murmur Abdomen: normal bowel sounds, soft, non tender, no organomegaly, non distended , no mass Extremities: no cyanosis, no clubbing Skin: no rash, no lesions, no ulcers Microbiology Date/Time Source Procedure Growth Status 03/15/16 17:30 Blood Blood Culture - Preliminary NO GROWTH AFTER 24 HOURS Resulted 03/15/16 17:15 Blood Blood Culture - Preliminary NO GROWTH AFTER 24 HOURS Resulted 03/15/16 21:10 Rectum VRE Culture - Final Enterococcus Faecalis - Vre Complete Laboratory Tests Test 03/17/16 05:15 Sodium Level 140 mEQ/L (135-145) Potassium Level 3.9 mEQ/L (3.4-4.9) Chloride Level 98 mEQ/L (98-107) Carbon Dioxide Level 28 mEQ/L (20-30) Anion Gap 14 (5-15) Blood Urea Nitrogen 33 mg/dL (7-23) H Creatinine 3.1 mg/dL (0.7-1.2) H Estimat Glomerular Filtration Rate mL/min (>60) Glucose Level 174 mg/dL (74-106) H Calcium Level 8.9 mg/dL (8.6-10.2) Current Medications Medications (Trade) Dose Ordered Sig/Stephany Route PRN Reason Start Time Stop Time Status Last Admin Dose Admin Benazepril HCl (Lotensin) 20 mg Q12HR ORAL 03/17/16 12:00 04/16/16 11:59 03/17/16 12:27 Clonidine HCl (Catapres) 0.1 mg Q4H PRN ORAL BP over 170 syst 03/17/16 15:45 04/16/16 15:44 Dextrose (Dextrose 50%) STAT PRN IV Hypoglycemia 03/17/16 13:45 04/16/16 13:44 Gemfibrozil (Lopid) 600 mg TWICE A DAY ORAL 03/15/16 21:00 04/14/16 20:59 03/17/16 17:15 Glipizide (Glucotrol) 5 mg BIAC ORAL 03/15/16 16:30 04/14/16 16:29 03/17/16 16:32 Insulin Aspart (NovoLOG) BEFORE MEALS AND HS SUBQ 03/17/16 16:30 04/16/16 16:29 03/17/16 16:34 Jovita Mtz M.D. Mar 17, 2016 17:27
--- NOTE | 2016-03-17 19:06 | General Progress Note ---
Assessment/Plan Assessment/Plan ASSESSMENT: 1. Anemia, secondary to Chronic kidney disease/ ESRD. 2. . Chronic renal failure, on hemodialysis. 3. Malfunctioning subclavian access, continue to monitor, to be seen by IR. 4. History of hyperkalemia, currently resolved 5. History of leukocytosis, now resolved. 6. Diabetes mellitus, blood glucose up 306 RECOMMENDATIONS: 1. Maintain hemoglobin above 7 and platelet count above 10,000. 2. DVT prophylaxis with heparin. 3. GI prophylaxis as needed. 4. Malfunctioning access repair. 5. Hemodialysis three times a week to continue. 6. Peripheral smear ordered. 7. ferritin- pending 8. Followup on other service recommendations. 9. Discussed with staff. Subjective Constitutional: Reports: no symptoms HEENT: Reports: no symptoms Cardiovascular: Reports: no symptoms Respiratory: Reports: no symptoms Gastrointestinal/Abdominal: Reports: no symptoms Endocrine: Reports: no symptoms Hematologic/Lymphatic: Reports: anemia Allergies: Coded Allergies: No Known Allergies (Unverified , 05/25/13) Subjective stable Objective Last 24 Hour Vital Signs Date Time Temp Pulse Resp B/P Pulse Ox O2 Delivery O2 Flow Rate FiO2 03/17/16 16:15 98.2 71 20 152/71 100 03/17/16 16:09 97.0 82 20 161/86 100 Room Air 03/17/16 12:27 157/76 03/17/16 12:11 97.3 71 20 157/76 100 Room Air 03/17/16 09:00 144/73 03/17/16 08:54 98.0 67 20 144/73 99 Room Air 03/17/16 04:29 96.2 65 18 181/86 99 Room Air Intake and Output 03/17/16 03/17/16 11:00 23:00 Intake Total 440 ml 880 ml Output Total 200 ml 200 ml Balance 240 ml 680 ml Intake Oral 440 ml 880 ml Output Urine Total 200 ml 200 ml # Voids 3 # Bowel Movements 1 Laboratory Tests 03/17/16 05:15: Sodium Level 140, Potassium Level 3.9, Chloride Level 98, Carbon Dioxide Level 28, Anion Gap 14, Blood Urea Nitrogen 33H, Creatinine 3.1H, Estimat Glomerular Filtration Rate , Glucose Level 174H, Calcium Level 8.9 Height (Feet): 5 Height (Inches): 4.00 Weight (Pounds): 130 General Appearance: no apparent distress EENT: PERRL/EOMI Neck: supple Cardiovascular: normal rate Respiratory/Chest: no respiratory distress Edema: 1+ Leg (R) Neurologic: alert Skin: warm/dry Gigi Aguirre Mar 17, 2016 19:06
[2016-03-18] VITALS (7 sets, daily range): BP systolic 112–196; BP diastolic 63–107
[2016-03-18] MEDS: NovoLOG Insulin Flexpen SUBQ SCH ×4 (06:36→22:04)
--- NOTE | 2016-03-18 06:47 | Consultation ---
DATE OF CONSULTATION: 03/17/2016 UROLOGY CONSULTATION ATTENDING/CONSULTING PHYSICIAN: Dolly Narvaez M.D. CHIEF COMPLAINT/HISTORY OF PRESENT ILLNESS: Asked by Dr. Narvaez to evaluate this 80-year-old gentleman known to me from previous hospitalization here regarding history of urinary retention and moderate bilateral hydronephrosis noted on CT scan. I saw the patient in December 2015. At that time, he had a urinary tract infection and urosepsis leading to altered mental status. A renal ultrasound was done to evaluate renal failure at that time. It was notable for bilateral hydronephrosis and a 7 mm possible kidney stone. Given the above, I ordered a CT scan to better evaluate the situation. This revealed bilateral hydroureteronephrosis despite a decompressed bladder from a Rocha catheter. There is no evidence of renal or ureteral stones. There was an incidental 1.1 cm bladder stone noted and enlarged prostate consistent with chronic bladder outlet obstruction. The patient's urinary tract infection cleared on antifungals and he was eventually discharged. He now returns to the hospital with problems with his dialysis line not working. He needed to be admitted for the same. Evaluation again revealed hydroureteronephrosis on CT scan. Staff attempted to place a Rocha catheter, but was unable to do so. As such, I was asked to evaluate the patient. PAST MEDICAL HISTORY: 1. Diabetes. 2. CVA. 3. Gastroesophageal reflux disease. 4. Constipation. 5. Hyperlipidemia. 6. Organic brain syndrome. 7. Hypertension. 8. Fungal UTI. 9. Chronic renal failure, on hemodialysis. PAST SURGICAL HISTORY: Unknown. The patient has a midline abdominal scar, but it is uncertain as to what was done. MEDICATIONS: Please see chart for current medications and administration details. ALLERGIES: No known drug allergies. SOCIAL HISTORY: Unremarkable for tobacco, alcohol, or drug use. FAMILY HISTORY: Unobtainable. REVIEW OF SYSTEMS: A 12 system review of systems was limited as the patient cannot cooperate much with questioning. PHYSICAL EXAMINATION: GENERAL: The patient is an elderly gentleman, awake and alert. No obvious distress. HEENT: NCAT. EOMI. NECK: Supple. Full range of motion. Oropharynx is clear. CHEST: Within normal limits. ABDOMEN: Soft, flat, nontender, and nondistended. EXTREMITIES: Warm and well perfused. No cyanosis, clubbing, or edema. BACK: No CVA tenderness to percussion. NEUROLOGIC: Grossly nonfocal. The patient cannot cooperate with a full exam. GENITOURINARY: Reveals a uncircumcised male phallus. There are bilateral descended testes and cord structures with no masses or tenderness to palpation. LABORATORY DATA: White blood cell count 10.0, hematocrit 37.7, and platelets 346,000. PT 9.7, INR 1.0., and PTT 28. Urinalysis - specific gravity 1.010, pH 6.0. Dip test notable for 3+ protein, 3+ glucose, 5+ occult blood, and 3+ leukocyte esterase. Microanalysis with 10 to 15 red blood cells per high-power field. Sodium 140, potassium 3.9, chloride 98, bicarbonate 28, BUN 33, creatinine 3.1, and glucose 174. Calcium 8.9. LFTs within normal limits. Alkaline phosphatase 108. DIAGNOSTIC IMAGING: Renal ultrasound with bilateral moderate hydronephrosis, noted on previous CT as well and possibly secondary to prostatic hypertrophy. A 1.7 cm bladder stone within the bladder lumen. Bladder is mildly distended and thickened. Prostate measures 7 x 4.8 x 5.9 cm corresponding with 100 mL volume. abnormally increased suggesting medical renal disease. ASSESSMENT AND PLAN: In summary, the patient is an 80-year-old gentleman with a history of moderate bilateral hydroureteronephrosis even persisting in the setting of a Rocha catheter. He has also previously had a fungal urinary tract infection. He now returns to the hospital with complications secondary to his dialysis line and was admitted for the same. The staff was unable to pass a Rocha catheter into patient and as such, I was asked to evaluate the patient and placed the catheter. Physical exam is essentially unremarkable. Laboratory data is notable for renal insufficiency. Diagnostic imaging reveals bilateral moderate hydronephrosis as described above as well as a bladder stone. Today at the bedside with some difficulty I was able to pass a 16-[place] Rocha catheter into the patient's bladder. This is with a return of clear yellow urine output. The catheter was inflated and left to gravity drainage. It can be kept in place as needed. Once the patient is improved and discharged, he can follow up with me for possible intervention for his bladder and possible outlet obstruction from his prostate. In the meantime, I will start him on some Flomax and finasteride in an effort to help him urinate. Thank you again for allowing me to participate in the care of this nice gentleman. Please do not hesitate to contact me with any questions that you may further have regarding his care. I will be happy to continue see him with you as needed. Desmond Albright M.D. DR: JUSTIN JOB#: [id number] CC:
[2016-03-18 08:00] LABS: ALANINE AMINOTRANSFERASE 5 U/L (3-41); ALBUMIN/GLOBULIN RATIO 0.6 (1.0-2.7); ANION GAP 16 (5-15); ASPARTATE AMINO TRANSFERASE 5 U/L (5-40); CALCIUM 8.6 mg/dL (8.6-10.2); CARBON DIOXIDE 26 mEQ/L (20-30); CHLORIDE 96 mEQ/L (98-107); CREATININE 3.4 mg/dL (0.7-1.2); HEMOLYSIS 10; MAGNESIUM 1.7 mg/dL (1.7-2.5); PHOSPHORUS 4.4 mg/dL (2.5-4.8); SODIUM 138 mEQ/L (135-145); TOTAL PROTEIN 7.1 g/dL (6.6-8.7); URIC ACID 8.1 mg/dL (3.0-7.5)
[2016-03-18] MEDS: Benazepril 10mg tab ORAL SCH ×2 (08:34→22:03)
[2016-03-18] MEDS ORDERED: Levemir Flexpen SUBQ SCH (09:00)
--- NOTE | 2016-03-18 10:43 | General Progress Note ---
Assessment/Plan Assessment/Plan ASSESSMENT: 1. Anemia, secondary to Chronic kidney disease/ ESRD. 2. Chronic renal failure, on hemodialysis. 3. Malfunctioning subclavian access, continue to monitor, to be seen by IR. 4. History of hyperkalemia, currently resolved 5. History of leukocytosis, now resolved. 6. Diabetes mellitus, blood glucose up 306 RECOMMENDATIONS: 1. Maintain hemoglobin >7 and platelet >10,000. 2. DVT prophylaxis with heparin. 3. GI prophylaxis as needed. 4. Malfunctioning access repair. 5. Hemodialysis three times a week to continue. 6. Peripheral smear ordered. 7. Followup on other service recommendations. 8. Discussed with staff. Sincerely, Michelle Aguirre MD Subjective Constitutional: Reports: no symptoms HEENT: Reports: no symptoms Cardiovascular: Reports: no symptoms Respiratory: Reports: no symptoms Gastrointestinal/Abdominal: Reports: poor appetite Genitourinary: Reports: no symptoms Neurologic/Psychiatric: Reports: no symptoms Endocrine: Reports: no symptoms Hematologic/Lymphatic: Reports: anemia Allergies: Coded Allergies: No Known Allergies (Unverified , 05/25/13) Subjective stable, no hematemesis, no fevers or chills Objective Last 24 Hour Vital Signs Date Time Temp Pulse Resp B/P Pulse Ox O2 Delivery O2 Flow Rate FiO2 03/18/16 08:34 112/66 03/18/16 08:00 97.7 73 20 112/66 99 Room Air 03/18/16 04:00 97.7 76 20 152/63 97 Room Air 03/18/16 00:15 159/92 03/18/16 00:00 97.7 81 22 196/107 98 Room Air 03/17/16 20:49 175/94 03/17/16 20:30 98.0 77 20 150/86 99 Room Air 03/17/16 20:00 96.6 78 20 175/94 99 Room Air 03/17/16 16:15 98.2 71 20 152/71 100 03/17/16 16:09 97.0 82 20 161/86 100 Room Air 03/17/16 12:27 157/76 03/17/16 12:11 97.3 71 20 157/76 100 Room Air Intake and Output 03/17/16 03/18/16 19:00 07:00 Intake Total 880 ml 880 ml Output Total 200 ml 1250 ml Balance 680 ml -370 ml Intake Oral 880 ml 880 ml Output Urine Total 200 ml 1250 ml # Voids 3 # Bowel Movements 1 Laboratory Tests 03/18/16 04:45: Sodium Level 138, Potassium Level 4.0, Chloride Level 96L, Carbon Dioxide Level 26, Anion Gap 16H, Blood Urea Nitrogen 40H, Creatinine 3.4H, Estimat Glomerular Filtration Rate , Glucose Level 176H, Hemoglobin A1c 10.3H, Uric Acid 8.1H, Calcium Level 8.6, Phosphorus Level 4.4, Magnesium Level 1.7, Total Bilirubin < 0.2, Aspartate Amino Transf (AST/SGOT) 5, Alanine Aminotransferase (ALT/SGPT) 5 , Alkaline Phosphatase 106, Total Protein 7.1, Albumin 2.9L, Globulin 4.2, Albumin/Globulin Ratio 0.6L Height (Feet): 5 Height (Inches): 4.00 Weight (Pounds): 130 General Appearance: no apparent distress EENT: TMs normal Neck: supple Cardiovascular: regular rhythm Respiratory/Chest: lungs clear Abdomen: normal bowel sounds Extremities: normal inspection Edema: mild edema Neurologic: alert Skin: warm/dry MICHELLE AGUIRRE Mar 18, 2016 10:43
--- NOTE | 2016-03-18 11:24 | General Progress Note ---
Assessment/Plan Problem List: (1) Urinary retention ICD Codes: R33.9 - Urinary retention SNOMED: 104752464 (2) UTI (lower urinary tract infection) ICD Codes: N39.0 - Urinary tract infection, site not specified SNOMED: 6341301 (3) Dialysis complication ICD Codes: T82.898A - Other specified complication of vascular prosthetic devices, implants and grafts, initial encounter SNOMED: 42622063, 88001155, 171590682 (4) Diabetes ICD Codes: E11.9 - Type 2 diabetes mellitus without complications SNOMED: 54535119 (5) CVA (cerebral vascular accident) ICD Codes: I63.9 - Cerebral infarction, unspecified SNOMED: 621171137 (6) Dialysis catheter clot or failure SNOMED: 98553401 Status: progressing Assessment/Plan afebrile hd access per radiology or dr gresham bp is improved esrd on hd reviewed chart and labs Subjective ROS Limited/Unobtainable: Yes Constitutional: Reports: no symptoms Allergies: Coded Allergies: No Known Allergies (Unverified , 05/25/13) Objective Last 24 Hour Vital Signs Date Time Temp Pulse Resp B/P Pulse Ox O2 Delivery O2 Flow Rate FiO2 03/18/16 08:34 112/66 03/18/16 08:00 97.7 73 20 112/66 99 Room Air 03/18/16 04:00 97.7 76 20 152/63 97 Room Air 03/18/16 00:15 159/92 03/18/16 00:00 97.7 81 22 196/107 98 Room Air 03/17/16 20:49 175/94 03/17/16 20:30 98.0 77 20 150/86 99 Room Air 03/17/16 20:00 96.6 78 20 175/94 99 Room Air 03/17/16 16:15 98.2 71 20 152/71 100 03/17/16 16:09 97.0 82 20 161/86 100 Room Air 03/17/16 12:27 157/76 03/17/16 12:11 97.3 71 20 157/76 100 Room Air Intake and Output 03/17/16 03/18/16 19:00 07:00 Intake Total 880 ml 880 ml Output Total 200 ml 1250 ml Balance 680 ml -370 ml Intake Oral 880 ml 880 ml Output Urine Total 200 ml 1250 ml # Voids 3 # Bowel Movements 1 Laboratory Tests 03/18/16 04:45: Sodium Level 138, Potassium Level 4.0, Chloride Level 96L, Carbon Dioxide Level 26, Anion Gap 16H, Blood Urea Nitrogen 40H, Creatinine 3.4H, Estimat Glomerular Filtration Rate , Glucose Level 176H, Hemoglobin A1c 10.3H, Uric Acid 8.1H, Calcium Level 8.6, Phosphorus Level 4.4, Magnesium Level 1.7, Total Bilirubin < 0.2, Aspartate Amino Transf (AST/SGOT) 5, Alanine Aminotransferase (ALT/SGPT) 5 , Alkaline Phosphatase 106, Total Protein 7.1, Albumin 2.9L, Globulin 4.2, Albumin/Globulin Ratio 0.6L Height (Feet): 5 Height (Inches): 4.00 Weight (Pounds): 130 EENT: PERRL/EOMI Cardiovascular: normal rate Respiratory/Chest: lungs clear Abdomen: soft Dolly Narvaez MD Mar 18, 2016 11:24
--- NOTE | 2016-03-18 14:54 | Infectious Diseases Prog Note ---
Assessment/Plan Problems: (1) Colonization with VRE (vancomycin-resistant enterococcus) Assessment & Plan: keep in contact isolation (2) Dialysis catheter clot or failure Assessment & Plan: rule out sepsis, await blood culture, S/P HD cath removal. (3) Diabetes Assessment & Plan: recommend tight glycemic control to keep blood glucose between 80-120 (4) CVA (cerebral vascular accident) Assessment & Plan: stable, continue meds , follow with neurology Subjective Constitutional: Denies: anorexia, chills, drenching sweats, fatigue, fever, no symptoms, other HEENT: Denies: congestion, coryza, dysphagia, hearing change, no symptoms, other, visual change Respiratory: Denies: dry cough, no symptoms, other, productive cough, shortness of breath Breasts: Denies: discharge, no symptoms, other, swelling, tenderness Cardiovascular: Denies: chest pain, dyspnea on exertion, no symptoms, other, palpitations Gastrointestinal/Abdominal: Denies: bloating, blood in stool, constipation, diarrhea, nausea, no symptoms, other, vomiting Genitourinary: Denies: dysuria, frequency, hematuria, no symptoms, nocturia, other Neurologic: Denies: confusion, headache, no symptoms, numbness, other, weakness Psychiatric: Denies: anxiety, depression, no symptoms, other Skin: Denies: no symptoms, other, rash, ulcer Endocrine: Denies: feels cold, feels warm, no symptoms, other Hematologic: Denies: bleeding, no symptoms, other, swollen lymph nodes Allergies: Coded Allergies: No Known Allergies (Unverified , 05/25/13) Subjective he was doing well, had new HD cath placed with site looks intact, no skin redness or discharge. denied any fever or chills. Objective Vital Signs Last 24 Hour Vital Signs Date Time Temp Pulse Resp B/P Pulse Ox O2 Delivery O2 Flow Rate FiO2 03/18/16 12:08 97.9 68 21 140/68 99 Room Air 03/18/16 08:34 112/66 03/18/16 08:00 97.7 73 20 112/66 99 Room Air 03/18/16 04:00 97.7 76 20 152/63 97 Room Air 03/18/16 00:15 159/92 03/18/16 00:00 97.7 81 22 196/107 98 Room Air 03/17/16 20:49 175/94 03/17/16 20:30 98.0 77 20 150/86 99 Room Air 03/17/16 20:00 96.6 78 20 175/94 99 Room Air 03/17/16 16:15 98.2 71 20 152/71 100 03/17/16 16:09 97.0 82 20 161/86 100 Room Air Height (Feet): 5 Height (Inches): 4.00 Weight (Pounds): 130 General Appearance: WD/WN, no acute distress HEENT: normocephalic, atraumatic, anicteric, mucous membranes moist, PERRL Respiratory/Chest: chest wall non-tender, lungs clear, normal breath sounds, no respiratory distress, no accessory muscle use Cardiovascular: normal peripheral pulses, normal rate, regular rhythm, no gallop/murmur Abdomen: normal bowel sounds, soft, non tender, no organomegaly, non distended , no mass, no scars Extremities: no cyanosis, no clubbing Skin: no rash, no lesions, no ulcers Microbiology Date/Time Source Procedure Growth Status 03/15/16 17:30 Blood Blood Culture - Preliminary NO GROWTH AFTER 48 HOURS Resulted 03/15/16 17:15 Blood Blood Culture - Preliminary NO GROWTH AFTER 48 HOURS Resulted 03/15/16 21:10 Nasal Nares MRSA Culture - Final NO METHICILLIN RESISTANT STAPH AUREUS... Complete 03/15/16 21:10 Rectum VRE Culture - Final Enterococcus Faecalis - Vre Complete Laboratory Tests Test 03/18/16 04:45 Sodium Level 138 mEQ/L (135-145) Potassium Level 4.0 mEQ/L (3.4-4.9) Chloride Level 96 mEQ/L (98-107) L Carbon Dioxide Level 26 mEQ/L (20-30) Anion Gap 16 (5-15) H Blood Urea Nitrogen 40 mg/dL (7-23) H Creatinine 3.4 mg/dL (0.7-1.2) H Estimat Glomerular Filtration Rate mL/min (>60) Glucose Level 176 mg/dL (74-106) H Hemoglobin A1c 10.3 % (< 6.0) H Uric Acid 8.1 mg/dL (3.0-7.5) H Calcium Level 8.6 mg/dL (8.6-10.2) Phosphorus Level 4.4 mg/dL (2.5-4.8) Magnesium Level 1.7 mg/dL (1.7-2.5) Total Bilirubin < 0.2 mg/dL (0.0-1.2) Aspartate Amino Transf (AST/SGOT) 5 U/L (5-40) Alanine Aminotransferase (ALT/SGPT) 5 U/L (3-41) Alkaline Phosphatase 106 U/L (40-129) Total Protein 7.1 g/dL (6.6-8.7) Albumin 2.9 g/dL (3.5-5.2) L Globulin 4.2 g/dL Albumin/Globulin Ratio 0.6 (1.0-2.7) L Current Medications Medications (Trade) Dose Ordered Sig/Stephany Route PRN Reason Start Time Stop Time Status Last Admin Dose Admin Benazepril HCl (Lotensin) 20 mg Q12HR ORAL 03/17/16 12:00 04/16/16 11:59 03/18/16 08:34 Clonidine HCl (Catapres) 0.1 mg Q4H PRN ORAL BP over 170 syst 03/17/16 15:45 04/16/16 15:44 Dextrose (Dextrose 50%) STAT PRN IV Hypoglycemia 03/17/16 13:45 04/16/16 13:44 Finasteride (Proscar) 5 mg DAILY ORAL 03/18/16 09:00 04/17/16 08:59 03/18/16 08:34 Gemfibrozil (Lopid) 600 mg TWICE A DAY ORAL 03/15/16 21:00 04/14/16 20:59 03/18/16 08:34 Insulin Aspart (NovoLOG) BEFORE MEALS AND HS SUBQ 03/17/16 16:30 04/16/16 16:29 03/18/16 12:55 Insulin Detemir (Levemir) 10 units DAILY SUBQ 03/18/16 09:00 04/17/16 08:59 03/18/16 10:18 Tamsulosin HCl (Flomax) 0.4 mg BEDTIME ORAL 03/18/16 22:00 04/17/16 21:59 Jovita Mtz M.D. Mar 18, 2016 14:54
--- NOTE | 2016-03-18 15:19 | General Progress Note ---
Assessment/Plan Status: stable Assessment/Plan Chronic renal failure- on HD h/o Metabolic Acidosis- h/o UTI DM OOC HTN bilateral [place] JENNIFER: Moderate bilateral hydronephrosis. Previous CT examination showed similar findings. The finding is likely associated with the abnormal urinary bladder and/or involvement of the bladder base by an enlarged prostate gland or mass. Further evaluation by a urologist is recommended. Bladder calculus with intraluminal debris and/or blood. Echogenic kidneys consistent with medical renal disease. Plan: Hold HD - Uro eval-NOTED 24 H urine CrCl- pending BS control- adjust BP meds Subjective ROS Limited/Unobtainable: No Constitutional: Reports: malaise, weakness Allergies: Coded Allergies: No Known Allergies (Unverified , 05/25/13) Objective Last 24 Hour Vital Signs Date Time Temp Pulse Resp B/P Pulse Ox O2 Delivery O2 Flow Rate FiO2 03/18/16 12:08 97.9 68 21 140/68 99 Room Air 03/18/16 08:34 112/66 03/18/16 08:00 97.7 73 20 112/66 99 Room Air 03/18/16 04:00 97.7 76 20 152/63 97 Room Air 03/18/16 00:15 159/92 03/18/16 00:00 97.7 81 22 196/107 98 Room Air 03/17/16 20:49 175/94 03/17/16 20:30 98.0 77 20 150/86 99 Room Air 03/17/16 20:00 96.6 78 20 175/94 99 Room Air 03/17/16 16:15 98.2 71 20 152/71 100 03/17/16 16:09 97.0 82 20 161/86 100 Room Air Intake and Output 03/17/16 03/18/16 19:00 07:00 Intake Total 880 ml 880 ml Output Total 200 ml 1250 ml Balance 680 ml -370 ml Intake Oral 880 ml 880 ml Output Urine Total 200 ml 1250 ml # Voids 3 # Bowel Movements 1 Laboratory Tests 03/18/16 04:45: Sodium Level 138, Potassium Level 4.0, Chloride Level 96L, Carbon Dioxide Level 26, Anion Gap 16H, Blood Urea Nitrogen 40H, Creatinine 3.4H, Estimat Glomerular Filtration Rate , Glucose Level 176H, Hemoglobin A1c 10.3H, Uric Acid 8.1H, Calcium Level 8.6, Phosphorus Level 4.4, Magnesium Level 1.7, Total Bilirubin < 0.2, Aspartate Amino Transf (AST/SGOT) 5, Alanine Aminotransferase (ALT/SGPT) 5 , Alkaline Phosphatase 106, Total Protein 7.1, Albumin 2.9L, Globulin 4.2, Albumin/Globulin Ratio 0.6L Height (Feet): 5 Height (Inches): 4.00 Weight (Pounds): 130 General Appearance: no apparent distress Abdomen: soft Genitourinary/Rectal: other - has [place] Objective PE not changed JILL MACEDO Mar 18, 2016 15:19
--- NOTE | 2016-03-18 16:37 | General Progress Note ---
Progress Note Progress Note Dictated consult to follow Hx of DM HTN dementia cva Renal failure on HD Hydronephrosis Right chest permcath placed by IR had flow issues now better with TPA lysis Rec Check arm duplex For left arm av shunt placement on Sunday if cleared by renal d/w RN at bedside CECIL DAVE Mar 18, 2016 16:37
[2016-03-18 18:28] LABS: CREATININE 3.4 mg/dL (0.7-1.2)
[2016-03-18 18:29] LABS: CREATININE 3.4 mg/dL (0.7-1.2)
[2016-03-18 19:07] LABS: TOTAL PROTEIN 24HR URINE 5864.5 mg/24hr (< 150)
[2016-03-18] MEDS: Tamsulosin 0.4mg cap ORAL SCH (21:55)
[2016-03-18] MEDS: Heparin 5000 units/ml inj SUBQ SCH (21:57)
[2016-03-19] VITALS: BP 141/75
[2016-03-19] MEDS: NovoLOG Insulin Flexpen SUBQ SCH ×4 (06:18→21:37)
[2016-03-19 07:23] LABS: BASOPHILS % (AUTO) 0.8 % (0.0-2.0); LYMPHOCYTES % (AUTO) 36.1 % (20.0-45.0); MEAN CORPUSCULAR HEMOGLOBIN 29.3 PG (27.0-31.0); MEAN CORPUSCULAR HGB CONC 31.9 G/DL (32.0-36.0); MEAN CORPUSCULAR VOLUME 92 FL (80-99); MEAN PLATELET VOLUME 5.9 FL (6.5-10.1); MONOCYTES % (AUTO) 7.8 % (1.0-10.0); NEUTROPHILS % (AUTO) 53.4 % (45.0-75.0); PLATELET COUNT 334 K/UL (150-450); RED BLOOD COUNT 3.73 M/UL (4.70-6.10); RED CELL DISTRIBUTION WIDTH 13.5 % (11.6-14.8); WHITE BLOOD COUNT 9.5 K/UL (4.8-10.8)
[2016-03-19 07:51] LABS: ANION GAP 15 (5-15); CARBON DIOXIDE 27 mEQ/L (20-30); CHLORIDE 96 mEQ/L (98-107); CREATININE 3.7 mg/dL (0.7-1.2); POTASSIUM 4.1 mEQ/L (3.4-4.9); SODIUM 138 mEQ/L (135-145); URIC ACID 9.7 MG/DL (2.6-7.2)
[2016-03-19 07:52] LABS: CALCIUM 8.7 mg/dL (8.6-10.2); MAGNESIUM 1.7 MG/DL (1.5-2.4); PHOSPHORUS 4.5 MG/DL (2.5-4.9)
[2016-03-19 07:53] LABS: ALANINE AMINOTRANSFERASE 5 U/L (3-41); ALBUMIN/GLOBULIN RATIO 0.7 (1.0-2.7); ASPARTATE AMINO TRANSFERASE 9 U/L (5-40); TOTAL PROTEIN 6.9 g/dL (6.6-8.7)
[2016-03-19 07:54] LABS: HEMOLYSIS 1
[2016-03-19 08:00] VITALS: BP 151/52
[2016-03-19] MEDS: Heparin 5000 units/ml inj SUBQ SCH ×2 (08:10→21:36)
--- NOTE | 2016-03-19 08:47 | Consultation ---
DATE OF CONSULTATION: 03/18/2016 VASCULAR SURGERY CONSULTATION CONSULTING PHYSICIAN: Deep Monson M.D. REFERRING PHYSICIAN: Dolly Narvaez M.D. and Mikey Brandt M.D. REASON FOR EVALUATION: Access evaluation for hemodialysis. HISTORY OF PRESENT ILLNESS: This is an 80-year-old male, who suffers from renal failure, on hemodialysis. The patient had a right chest Perma catheter placed by Interventional Radiology. The patient presented through the emergency room with malfunctioning catheter. Vascular Surgery was consulted for further evaluation. Since then, the patient had underwent a thrombolysis with tissue plasminogen activator through the Perma catheter. The patient's CAT scan was checked by Intervention Radiology and is functional. Vascular Surgery is consulted for further evaluation of possible more permanent access with AV shunt for dialysis therapy. The patient is currently confused. All the history is obtained from the medical records. PAST MEDICAL HISTORY: History of hypertension, diabetes mellitus, dyslipidemia, history of stroke, left-sided weakness, urinary tract infection, and right chest Perma catheter. MEDICATIONS: See the attached MAR. ALLERGIES: No known drug allergy. SOCIAL HISTORY: No noted history of smoking, drugs, or alcohol abuse. FAMILY HISTORY: Unobtainable. SYSTEM REVIEW: Unobtainable due to the patient's altered mental status. PHYSICAL EXAMINATION: GENERAL: The patient is awake, but confused, disoriented. VITAL SIGNS: Temperature is 97.7 degrees, heart rate 77, blood pressure 168/82, respirations 12, and saturation 100%. He has palpable radial pulses. Right chest PermCath is clear, dry, and intact. LUNGS: Clear to auscultation bilateral. HEART: Regular rate and rhythm. ABDOMEN: Soft and nontender. EXTREMITIES: He has palpable femoral pulses. Feet are warm with intact pedal Dopplers bilaterally. LABORATORY DATA: Laboratories on admission revealed a BUN of 27 and creatinine 3.1. WBC 10.6, hemoglobin 12.6, and platelet count 354,000. ALT 6 and AST 9. INR is 1.0. IMPRESSION: 1. Malfunctioning right chest Perma catheter likely due to thrombus resulting with tPA thrombolysis. 2. Renal failure requiring permanent access for hemodialysis being evaluated by Renal service. 3. History of stroke with left-sided weakness. 4. Hypertension, diabetes with dyslipidemia and peripheral vascular arterial occlusive disease. PLAN: We will review the arm ultrasounds. Continue dialysis through the right chest Perma catheter. Once medically optimized and cleared by Renal service, we will schedule the patient for left upper arm AV shunt versus graft placement. Deep Monson M.D. DR: Neisha JOB#: [id number] CC: Deep Monson M.D.; Fax#: [phone] Narvaez M.D. ; Fax#: [phone] Brandt M.D. [facility]
--- NOTE | 2016-03-19 09:39 | General Progress Note ---
Assessment/Plan Assessment/Plan ASSESSMENT: 1. Anemia, secondary to ESRD. 2. Chronic renal failure, on hemodialysis. 3. Malfunctioning subclavian access, right permacath placed 4. History of hyperkalemia, currently resolved 5. History of leukocytosis, now resolved. 6. Diabetes mellitus, blood glucose up 306 RECOMMENDATIONS: 1. Maintain hemoglobin >7 and platelet >10k 2. DVT prophylaxis with heparin. 3. GI prophylaxis as needed. 4. Hemodialysis three times a week to continue. 5. Peripheral smear ordered. 6. Followup pul, renal recs 7. Discussed with staff. Sincerely, Michelle Aguirre MD Subjective Constitutional: Reports: no symptoms HEENT: Reports: no symptoms Cardiovascular: Reports: no symptoms Respiratory: Reports: no symptoms Gastrointestinal/Abdominal: Reports: poor appetite Genitourinary: Reports: no symptoms Neurologic/Psychiatric: Reports: no symptoms Endocrine: Reports: no symptoms Hematologic/Lymphatic: Reports: anemia Allergies: Coded Allergies: No Known Allergies (Unverified , 05/25/13) Subjective stable, no hematemesis, no fevers or chills, right chest permacath in place Objective Last 24 Hour Vital Signs Date Time Temp Pulse Resp B/P Pulse Ox O2 Delivery O2 Flow Rate FiO2 03/19/16 08:00 97.7 77 19 151/52 98 Room Air 03/19/16 04:00 20 Room Air 03/19/16 00:00 97.2 77 20 141/75 97 Room Air 03/18/16 22:03 139/77 03/18/16 19:00 97.4 76 20 139/77 97 Room Air 03/18/16 16:00 96.9 71 22 146/71 99 Room Air 03/18/16 12:08 97.9 68 21 140/68 99 Room Air Intake and Output 03/18/16 03/19/16 19:00 07:00 Intake Total 480 ml 540 ml Output Total 650 ml 1200 ml Balance -170 ml -660 ml Intake Oral 480 ml 540 ml Output Urine Total 650 ml 1200 ml # Bowel Movements 2 Laboratory Tests 03/18/16 17:00: Creatinine 3.4H, Estimat Glomerular Filtration Rate 03/19/16 04:40: Creatinine 3.7H, Estimat Glomerular Filtration Rate , White Blood Count 9.5, Red Blood Count 3.73L, Hemoglobin 10.9L, Hematocrit 34.3L, Mean Corpuscular Volume 92, Mean Corpuscular Hemoglobin 29.3, Mean Corpuscular Hemoglobin Concent 31.9L, Red Cell Distribution Width 13.5, Platelet Count 334, Mean Platelet Volume 5.9L, Neutrophils (%) (Auto) 53.4, Lymphocytes (%) (Auto) 36.1, Monocytes (%) (Auto) 7.8, Eosinophils (%) (Auto) 2.0, Basophils (%) (Auto) 0.8, Sodium Level 138, Potassium Level 4.1, Chloride Level 96L, Carbon Dioxide Level 27, Anion Gap 15, Blood Urea Nitrogen 51H, Glucose Level 88, Uric Acid 9.7H, Calcium Level 8.7, Phosphorus Level 4.5, Magnesium Level 1.7, Total Bilirubin 0.1, Aspartate Amino Transf (AST/SGOT) 9, Alanine Aminotransferase (ALT/SGPT) 5 , Alkaline Phosphatase 97, Pro-B-Type Natriuretic Peptide 2755H, Total Protein 6.9, Albumin 3.0L, Globulin 3.9, Albumin/Globulin Ratio 0.7L Height (Feet): 5 Height (Inches): 4.00 Weight (Pounds): 130 General Appearance: no apparent distress EENT: TMs normal Neck: normal alignment Cardiovascular: regular rhythm Respiratory/Chest: normal breath sounds Abdomen: non tender Extremities: non-tender Edema: 1+ Leg (L), 1+ Leg (R) Edema: mild edema Neurologic: alert Skin: warm/dry MICHELLE AGUIRRE Mar 19, 2016 09:39
[2016-03-19] MEDS: Benazepril 10mg tab ORAL SCH ×2 (10:24→21:34)
[2016-03-19] MEDS: Levemir Flexpen SUBQ SCH ×2 (10:28→21:36)
--- NOTE | 2016-03-19 11:29 | General Progress Note ---
Assessment/Plan Status: unchanged Status Narrative has diarrhea Assessment/Plan Status- Chronic renal failure- on HD h/o Metabolic Acidosis- h/o UTI DM OOC HTN bilateral [place] JENNIFER: Moderate bilateral hydronephrosis. Previous CT examination showed similar findings. The finding is likely associated with the abnormal urinary bladder and/or involvement of the bladder base by an enlarged prostate gland or mass. Further evaluation by a urologist is recommended. Bladder calculus with intraluminal debris and/or blood. Echogenic kidneys consistent with medical renal disease. Plan: HD in am- Stool for C diff Uro eval-NOTED 24 H urine CrCl- 15 with over 5 gram protein in 24 h urine collection- BS control- adjust BP meds- add Norvasc Subjective ROS Limited/Unobtainable: No Constitutional: Reports: malaise Gastrointestinal/Abdominal: Reports: diarrhea Allergies: Coded Allergies: No Known Allergies (Unverified , 05/25/13) Objective Last 24 Hour Vital Signs Date Time Temp Pulse Resp B/P Pulse Ox O2 Delivery O2 Flow Rate FiO2 03/19/16 10:24 151/52 03/19/16 08:00 97.7 77 19 151/52 98 Room Air 03/19/16 04:00 20 Room Air 03/19/16 00:00 97.2 77 20 141/75 97 Room Air 03/18/16 22:03 139/77 03/18/16 19:00 97.4 76 20 139/77 97 Room Air 03/18/16 16:00 96.9 71 22 146/71 99 Room Air 03/18/16 12:08 97.9 68 21 140/68 99 Room Air Intake and Output 03/18/16 03/19/16 19:00 07:00 Intake Total 480 ml 540 ml Output Total 650 ml 1200 ml Balance -170 ml -660 ml Intake Oral 480 ml 540 ml Output Urine Total 650 ml 1200 ml # Bowel Movements 2 Laboratory Tests 03/18/16 17:00: Creatinine 3.4H, Estimat Glomerular Filtration Rate 03/19/16 04:40: Creatinine 3.7H, Estimat Glomerular Filtration Rate , White Blood Count 9.5, Red Blood Count 3.73L, Hemoglobin 10.9L, Hematocrit 34.3L, Mean Corpuscular Volume 92, Mean Corpuscular Hemoglobin 29.3, Mean Corpuscular Hemoglobin Concent 31.9L, Red Cell Distribution Width 13.5, Platelet Count 334, Mean Platelet Volume 5.9L, Neutrophils (%) (Auto) 53.4, Lymphocytes (%) (Auto) 36.1, Monocytes (%) (Auto) 7.8, Eosinophils (%) (Auto) 2.0, Basophils (%) (Auto) 0.8, Sodium Level 138, Potassium Level 4.1, Chloride Level 96L, Carbon Dioxide Level 27, Anion Gap 15, Blood Urea Nitrogen 51H, Glucose Level 88, Uric Acid 9.7H, Calcium Level 8.7, Phosphorus Level 4.5, Magnesium Level 1.7, Total Bilirubin 0.1, Aspartate Amino Transf (AST/SGOT) 9, Alanine Aminotransferase (ALT/SGPT) 5 , Alkaline Phosphatase 97, Pro-B-Type Natriuretic Peptide 2755H, Total Protein 6.9, Albumin 3.0L, Globulin 3.9, Albumin/Globulin Ratio 0.7L Height (Feet): 5 Height (Inches): 4.00 Weight (Pounds): 130 Cardiovascular: normal rate Respiratory/Chest: lungs clear Abdomen: soft Objective PE not changed JILL MACEDO Mar 19, 2016 11:29
--- NOTE | 2016-03-19 11:45 | Diagnostic Imaging Report ---
Indication: Chest Pain Comparison: 12/28/15 A single view chest radiograph was obtained. Findings: Cardiomegaly is present. Lungs are essentially clear. There is right permacath present in the position. Lungs are osteopenic. Impression: No acute findings
[2016-03-19 12:00] VITALS: BP 125/68
--- NOTE | 2016-03-19 12:02 | General Progress Note ---
Assessment/Plan Problem List: (1) Urinary retention ICD Codes: R33.9 - Urinary retention SNOMED: 543989568 (2) UTI (lower urinary tract infection) ICD Codes: N39.0 - Urinary tract infection, site not specified SNOMED: 0361164 (3) Dialysis complication ICD Codes: T82.898A - Other specified complication of vascular prosthetic devices, implants and grafts, initial encounter SNOMED: 20408945, 78459719, 200681391 (4) Diabetes ICD Codes: E11.9 - Type 2 diabetes mellitus without complications SNOMED: 31684313 (5) CVA (cerebral vascular accident) ICD Codes: I63.9 - Cerebral infarction, unspecified SNOMED: 148298258 (6) Dialysis catheter clot or failure SNOMED: 44575975 Status: progressing Assessment/Plan av shunt per dr joseph afebril esrd on hd lyte abnormality anemia of chronic disease Subjective ROS Limited/Unobtainable: Yes Constitutional: Reports: no symptoms Allergies: Coded Allergies: No Known Allergies (Unverified , 05/25/13) Objective Last 24 Hour Vital Signs Date Time Temp Pulse Resp B/P Pulse Ox O2 Delivery O2 Flow Rate FiO2 03/19/16 10:24 151/52 03/19/16 08:00 97.7 77 19 151/52 98 Room Air 03/19/16 04:00 20 Room Air 03/19/16 00:00 97.2 77 20 141/75 97 Room Air 03/18/16 22:03 139/77 03/18/16 19:00 97.4 76 20 139/77 97 Room Air 03/18/16 16:00 96.9 71 22 146/71 99 Room Air 03/18/16 12:08 97.9 68 21 140/68 99 Room Air Intake and Output 03/18/16 03/19/16 19:00 07:00 Intake Total 480 ml 540 ml Output Total 650 ml 1200 ml Balance -170 ml -660 ml Intake Oral 480 ml 540 ml Output Urine Total 650 ml 1200 ml # Bowel Movements 2 Laboratory Tests 03/18/16 17:00: Creatinine 3.4H, Estimat Glomerular Filtration Rate 03/19/16 04:40: Creatinine 3.7H, Estimat Glomerular Filtration Rate , White Blood Count 9.5, Red Blood Count 3.73L, Hemoglobin 10.9L, Hematocrit 34.3L, Mean Corpuscular Volume 92, Mean Corpuscular Hemoglobin 29.3, Mean Corpuscular Hemoglobin Concent 31.9L, Red Cell Distribution Width 13.5, Platelet Count 334, Mean Platelet Volume 5.9L, Neutrophils (%) (Auto) 53.4, Lymphocytes (%) (Auto) 36.1, Monocytes (%) (Auto) 7.8, Eosinophils (%) (Auto) 2.0, Basophils (%) (Auto) 0.8, Sodium Level 138, Potassium Level 4.1, Chloride Level 96L, Carbon Dioxide Level 27, Anion Gap 15, Blood Urea Nitrogen 51H, Glucose Level 88, Uric Acid 9.7H, Calcium Level 8.7, Phosphorus Level 4.5, Magnesium Level 1.7, Total Bilirubin 0.1, Aspartate Amino Transf (AST/SGOT) 9, Alanine Aminotransferase (ALT/SGPT) 5 , Alkaline Phosphatase 97, Pro-B-Type Natriuretic Peptide 2755H, Total Protein 6.9, Albumin 3.0L, Globulin 3.9, Albumin/Globulin Ratio 0.7L Height (Feet): 5 Height (Inches): 4.00 Weight (Pounds): 130 EENT: PERRL/EOMI Neck: supple Cardiovascular: normal rate Respiratory/Chest: lungs clear Dolly Narvaez MD Mar 19, 2016 12:02
[2016-03-19 16:00] VITALS: BP 133/72
--- NOTE | 2016-03-19 16:31 | Infectious Diseases Prog Note ---
Assessment/Plan Problems: (1) Colonization with VRE (vancomycin-resistant enterococcus) Assessment & Plan: keep in contact isolation (2) Dialysis catheter clot or failure Assessment & Plan: no evidence of sepsis, blood culture remains negative , S/ P HD cath removal. (3) Diabetes Assessment & Plan: recommend tight glycemic control to keep blood glucose between 80-120 (4) CVA (cerebral vascular accident) Assessment & Plan: stable, continue meds , follow with neurology Subjective Constitutional: Denies: anorexia, chills, drenching sweats, fatigue, fever, no symptoms, other HEENT: Denies: congestion, coryza, dysphagia, hearing change, no symptoms, other, visual change Respiratory: Denies: dry cough, no symptoms, other, productive cough, shortness of breath Breasts: Denies: discharge, no symptoms, other, swelling, tenderness Cardiovascular: Denies: chest pain, dyspnea on exertion, no symptoms, other, palpitations Gastrointestinal/Abdominal: Denies: bloating, blood in stool, constipation, diarrhea, nausea, no symptoms, other, vomiting Genitourinary: Denies: dysuria, frequency, hematuria, no symptoms, nocturia, other Neurologic: Denies: confusion, headache, no symptoms, numbness, other, weakness Psychiatric: Denies: anxiety, depression, no symptoms, other Skin: Denies: no symptoms, other, rash, ulcer Endocrine: Denies: feels cold, feels warm, no symptoms, other Allergies: Coded Allergies: No Known Allergies (Unverified , 05/25/13) Subjective he was doing well, had new HD cath placed with site looks intact, no skin redness or discharge. denied any fever or chills. Objective Vital Signs Last 24 Hour Vital Signs Date Time Temp Pulse Resp B/P Pulse Ox O2 Delivery O2 Flow Rate FiO2 03/19/16 12:04 75 125/68 03/19/16 12:00 97.9 75 20 125/68 100 Room Air 03/19/16 10:24 151/52 03/19/16 08:00 97.7 77 19 151/52 98 Room Air 03/19/16 04:00 20 Room Air 03/19/16 00:00 97.2 77 20 141/75 97 Room Air 03/18/16 22:03 139/77 03/18/16 19:00 97.4 76 20 139/77 97 Room Air Height (Feet): 5 Height (Inches): 4.00 Weight (Pounds): 130 General Appearance: WD/WN, no acute distress HEENT: normocephalic, atraumatic, anicteric, mucous membranes moist Respiratory/Chest: chest wall non-tender, lungs clear, normal breath sounds, no respiratory distress, no accessory muscle use Cardiovascular: normal peripheral pulses, normal rate, regular rhythm, no gallop/murmur, no JVD Abdomen: normal bowel sounds, soft, non tender, no organomegaly, non distended , no mass, no scars Extremities: no cyanosis, no clubbing Skin: no rash, no lesions, no ulcers Laboratory Tests Test 03/18/16 17:00 03/19/16 04:40 Creatinine 3.4 mg/dL (0.7-1.2) H 3.7 mg/dL (0.7-1.2) H Estimat Glomerular Filtration Rate mL/min (>60) mL/min (>60) White Blood Count 9.5 K/UL (4.8-10.8) Red Blood Count 3.73 M/UL (4.70-6.10) L Hemoglobin 10.9 G/DL (14.2-18.0) L Hematocrit 34.3 % (42.0-52.0) L Mean Corpuscular Volume 92 FL (80-99) Mean Corpuscular Hemoglobin 29.3 PG (27.0-31.0) Mean Corpuscular Hemoglobin Concent 31.9 G/DL (32.0-36.0) L Red Cell Distribution Width 13.5 % (11.6-14.8) Platelet Count 334 K/UL (150-450) Mean Platelet Volume 5.9 FL (6.5-10.1) L Neutrophils (%) (Auto) 53.4 % (45.0-75.0) Lymphocytes (%) (Auto) 36.1 % (20.0-45.0) Monocytes (%) (Auto) 7.8 % (1.0-10.0) Eosinophils (%) (Auto) 2.0 % (0.0-3.0) Basophils (%) (Auto) 0.8 % (0.0-2.0) Sodium Level 138 mEQ/L (135-145) Potassium Level 4.1 mEQ/L (3.4-4.9) Chloride Level 96 mEQ/L (98-107) L Carbon Dioxide Level 27 mEQ/L (20-30) Anion Gap 15 (5-15) Blood Urea Nitrogen 51 mg/dL (7-23) H Glucose Level 88 mg/dL (74-106) Uric Acid 9.7 MG/DL (2.6-7.2) H Calcium Level 8.7 mg/dL (8.6-10.2) Phosphorus Level 4.5 MG/DL (2.5-4.9) Magnesium Level 1.7 MG/DL (1.5-2.4) Total Bilirubin 0.1 mg/dL (0.0-1.2) Aspartate Amino Transf (AST/SGOT) 9 U/L (5-40) Alanine Aminotransferase (ALT/SGPT) 5 U/L (3-41) Alkaline Phosphatase 97 U/L (40-129) Pro-B-Type Natriuretic Peptide 2755 pg/mL (0-450) H Total Protein 6.9 g/dL (6.6-8.7) Albumin 3.0 g/dL (3.5-5.2) L Globulin 3.9 g/dL Albumin/Globulin Ratio 0.7 (1.0-2.7) L Current Medications Medications (Trade) Dose Ordered Sig/Stephany Route PRN Reason Start Time Stop Time Status Last Admin Dose Admin Amlodipine Besylate (Norvasc) 2.5 mg DAILY ORAL 03/19/16 11:30 04/18/16 11:29 03/19/16 12:04 Benazepril HCl (Lotensin) 20 mg Q12HR ORAL 03/17/16 12:00 04/16/16 11:59 03/19/16 10:24 Clonidine HCl (Catapres) 0.1 mg Q4H PRN ORAL BP over 170 syst 03/17/16 15:45 04/16/16 15:44 Dextrose (Dextrose 50%) STAT PRN IV Hypoglycemia 03/17/16 13:45 04/16/16 13:44 Finasteride (Proscar) 5 mg DAILY ORAL 03/18/16 09:00 04/17/16 08:59 03/19/16 08:09 Gemfibrozil (Lopid) 600 mg TWICE A DAY ORAL 03/15/16 21:00 04/14/16 20:59 03/19/16 08:09 Heparin Sodium (Porcine) (Heparin 5000 units/ml) 5,000 units EVERY 12 HOURS SUBQ 03/18/16 21:00 04/17/16 20:59 03/19/16 08:10 Insulin Aspart (NovoLOG) BEFORE MEALS AND HS SUBQ 03/17/16 16:30 04/16/16 16:29 03/19/16 12:03 Insulin Detemir (Levemir) 5 units EVERY 12 HOURS SUBQ 03/19/16 09:00 04/18/16 08:59 03/19/16 10:28 Tamsulosin HCl (Flomax) 0.4 mg BEDTIME ORAL 03/18/16 22:00 04/17/16 21:59 03/18/16 21:55 Jovita Mtz M.D. Mar 19, 2016 16:31
[2016-03-19 20:00] VITALS: BP 128/78
[2016-03-19] MEDS: Tamsulosin 0.4mg cap ORAL SCH (21:33)
[2016-03-20] VITALS (14 sets, daily range): BP systolic 93–139; BP diastolic 42–59
[2016-03-20] MEDS: NovoLOG Insulin Flexpen SUBQ SCH ×4 (06:08→21:11)
[2016-03-20 06:48] LABS: PROTHROMBIN TIME 9.7 SEC (9.30-11.50)
[2016-03-20 07:07] LABS: BASOPHILS % (AUTO) 0.8 % (0.0-2.0); EOSINOPHILS % (AUTO) 3.9 % (0.0-3.0); LYMPHOCYTES % (AUTO) 29.9 % (20.0-45.0); MEAN CORPUSCULAR HEMOGLOBIN 28.4 PG (27.0-31.0); MEAN CORPUSCULAR HGB CONC 30.3 G/DL (32.0-36.0); MEAN CORPUSCULAR VOLUME 94 FL (80-99); MEAN PLATELET VOLUME 5.3 FL (6.5-10.1); MONOCYTES % (AUTO) 7.1 % (1.0-10.0); NEUTROPHILS % (AUTO) 58.3 % (45.0-75.0); PLATELET COUNT 365 K/UL (150-450); WHITE BLOOD COUNT 10.8 K/UL (4.8-10.8)
[2016-03-20 07:21] LABS: ANION GAP 17 (5-15); CALCIUM 8.4 mg/dL (8.6-10.2); CARBON DIOXIDE 24 mEQ/L (20-30); CHLORIDE 98 mEQ/L (98-107); HEMOLYSIS 3; POTASSIUM 4.6 mEQ/L (3.4-4.9); SODIUM 139 mEQ/L (135-145)
[2016-03-20] MEDS: Levemir Flexpen SUBQ SCH ×2 (08:32→21:12)
[2016-03-20] MEDS: Heparin 5000 units/ml inj SUBQ SCH ×2 (08:32→21:11)
[2016-03-20] MEDS: Benazepril 10mg tab ORAL SCH ×2 (08:32→21:10)
--- NOTE | 2016-03-20 10:16 | General Progress Note ---
Assessment/Plan Status: unchanged Assessment/Plan Status- Chronic renal failure- on HD h/o Metabolic Acidosis- h/o UTI DM OOC HTN bilateral Marion JENNIFER: Moderate bilateral hydronephrosis. Previous CT examination showed similar findings. The finding is likely associated with the abnormal urinary bladder and/or involvement of the bladder base by an enlarged prostate gland or mass. Further evaluation by a urologist is recommended. Bladder calculus with intraluminal debris and/or blood. Echogenic kidneys consistent with medical renal disease. Plan: HD in process- Stool for C diff Uro eval-NOTED 24 H urine CrCl- 15 with over 5 gram protein in 24 h urine collection- BS control- adjust BP meds- add Norvasc Subjective ROS Limited/Unobtainable: No Constitutional: Reports: malaise Allergies: Coded Allergies: No Known Allergies (Unverified , 05/25/13) Objective Last 24 Hour Vital Signs Date Time Temp Pulse Resp B/P Pulse Ox O2 Delivery O2 Flow Rate FiO2 03/20/16 08:30 97.2 72 20 123/59 94 03/20/16 08:30 Room Air 03/20/16 08:00 97.5 78 22 123/59 98 Room Air 03/20/16 04:00 97.9 81 22 107/59 97 Room Air 03/20/16 00:00 97.9 74 20 93/44 94 Room Air 03/19/16 21:34 133/72 03/19/16 20:00 98.4 74 22 128/78 99 Room Air 03/19/16 16:00 95.9 75 18 133/72 98 Room Air 03/19/16 12:04 75 125/68 03/19/16 12:00 97.9 75 20 125/68 100 Room Air 03/19/16 10:24 151/52 Intake and Output 03/19/16 03/20/16 19:00 07:00 Intake Total 600 ml 240 ml Output Total 400 ml 1400 ml Balance 200 ml -1160 ml Intake Oral 600 ml 240 ml Output Urine Total 400 ml 1400 ml # Bowel Movements 3 Laboratory Tests 03/20/16 05:40: White Blood Count 10.8, Red Blood Count 3.90L, Hemoglobin 11.1L, Hematocrit 36.5L, Mean Corpuscular Volume 94, Mean Corpuscular Hemoglobin 28.4, Mean Corpuscular Hemoglobin Concent 30.3L, Red Cell Distribution Width 14.0, Platelet Count 365, Mean Platelet Volume 5.3L, Neutrophils (%) (Auto) 58.3, Lymphocytes (%) (Auto) 29.9, Monocytes (%) (Auto) 7.1, Eosinophils (%) (Auto) 3.9H, Basophils (%) (Auto) 0.8, Prothrombin Time 9.7, Prothromb Time International Ratio 1.0, Activated Partial Thromboplast Time 27, Sodium Level 139, Potassium Level 4.6, Chloride Level 98, Carbon Dioxide Level 24, Anion Gap 17H, Blood Urea Nitrogen 56H, Creatinine 4.0H, Estimat Glomerular Filtration Rate , Glucose Level 110H, Calcium Level 8.4L Height (Feet): 5 Height (Inches): 4.00 Weight (Pounds): 130 General Appearance: no apparent distress Objective PE not changed JILL MACEDO Mar 20, 2016 10:16
[2016-03-20] MEDS ORDERED: Bacitracin Oint 15gm Tube TOPIC ONE (11:40)
[2016-03-20] MEDS ORDERED: Lidocaine 1% Plain 30 ml INJ ONE (11:40)
[2016-03-20] MEDS ORDERED: Bupivacaine 0.25% Inj 30ml INJ ONE (11:41)
[2016-03-20] MEDS ORDERED: Bacitracin 50000 Units Vial ONE (11:41)
[2016-03-20] MEDS ORDERED: Surgicel 4in x 8in TOPIC ONE (11:41)
--- NOTE | 2016-03-20 12:21 | Immediate Post-Op Evaluation ---
Immediate Post-Op Evalulation Immediate Post-Op Evalulation Procedure: AV Fistula L Arm Date of Evaluation: Mar 20, 2016 Blood Products: 0 Pain Score (1-10): 2 Nausea: No Vomiting: No Complications 0 Patient Status: awake, reacts, patent, none Hydration Status: adequate Dru Gram Ancef IV Given Within 1 Hr of Incision: Yes Mac Rankin MD Mar 20, 2016 12:21
[2016-03-20] MEDS ORDERED: LR 1000ml 1,000 ML IVLG SCH (12:22)
[2016-03-20] MEDS ORDERED: LORazepam Inj 2mg/ml 1ml IV PRN (12:30)
[2016-03-20] MEDS ORDERED: Meperidine 25mg/ml Inj IV PRN (12:30)
[2016-03-20] MEDS ORDERED: Atropine Inj 1mg/10ml Syr IV PRN (12:30)
[2016-03-20] MEDS ORDERED: Midazolam 2mg/2ml Inj IVP PRN (12:30)
[2016-03-20] MEDS ORDERED: Norco 7.5mg/325mg tab ORAL PRN (12:30)
[2016-03-20] MEDS ORDERED: Ketorolac 30mg Inj IV PRN (12:30)
[2016-03-20] MEDS ORDERED: Ketorolac 60mg Inj IV PRN (12:30)
[2016-03-20] MEDS ORDERED: Labetalol 5mg/ml 20ml vial IV PRN (12:30)
[2016-03-20] MEDS ORDERED: Oxycodone/Acetaminophen 5-325 ORAL PRN (12:30)
[2016-03-20] MEDS ORDERED: fentaNYL 100 mcg/2 mL IV PRN (12:30)
[2016-03-20] MEDS ORDERED: Metoclopramide 10mg/2ml Inj IVP PRN (12:30)
[2016-03-20] MEDS ORDERED: Hydromorphone 0.5mg/0.5ml inj IVP PRN (12:30)
[2016-03-20] MEDS ORDERED: DiphenhydrAMINE 50mg/ml Inj IVP PRN (12:30)
[2016-03-20] MEDS ORDERED: Norco 5mg/325mg tab ORAL PRN (12:30)
[2016-03-20] MEDS ORDERED: Lidocaine 1% MPF 10mg/ml 5ml ONE (12:40)
[2016-03-20] MEDS ORDERED: Sterile Water Irrig 1000ml IRRIG ONE (12:40)
[2016-03-20] MEDS ORDERED: NS Irrig 1000ml ONE (12:40)
[2016-03-20] MEDS ORDERED: NS 275ml ONE (12:40)
[2016-03-20] MEDS ORDERED: LR 1000ml ONE (12:40)
[2016-03-20] MEDS ORDERED: Propofol 10mg/ml 20ml IV ONE (12:40)
--- NOTE | 2016-03-20 12:50 | Pre-Procedure Note/Attestation ---
Pre-Procedure Note/Attestation Complete Prior to Procedure Planned Procedure: left Procedure Narrative: Left arm arteriovenous shunt placement Indications for Procedure Pre-Operative Diagnosis: ESRD need for HD access Attestation I attest that I discussed the nature of the procedure; its benefits; risks and complications; and alternatives (and the risks and benefits of such alternatives ), prior to the procedure, with the patient (or the patient's legal hobbies and crafts sales representative). I attest that, if there was a reasonable possibility of needing a blood transfusion, the patient (or the patient's legal hobbies and crafts sales representative) was given the [facility] standardized written summary, pursuant to the Brenden Disautel Blood Safety Act ([place] Health and Safety Code # 1645, as amended). I attest that I re-evaluated the patient just prior to the surgery and that there has been no change in the patient's H&P, except as documented below: CECIL DAVE Mar 20, 2016 12:50
[2016-03-20] MEDS ORDERED: Thrombin 5000 units TOPIC ONE (13:56)
--- NOTE | 2016-03-20 14:20 | General Progress Note ---
Assessment/Plan Problem List: (1) Urinary retention ICD Codes: R33.9 - Urinary retention SNOMED: 663963458 (2) UTI (lower urinary tract infection) ICD Codes: N39.0 - Urinary tract infection, site not specified SNOMED: 5273825 (3) Dialysis complication ICD Codes: T82.898A - Other specified complication of vascular prosthetic devices, implants and grafts, initial encounter SNOMED: 18441694, 00815271, 981981520 (4) Diabetes ICD Codes: E11.9 - Type 2 diabetes mellitus without complications SNOMED: 38760431 (5) CVA (cerebral vascular accident) ICD Codes: I63.9 - Cerebral infarction, unspecified SNOMED: 868513378 (6) Dialysis catheter clot or failure SNOMED: 95125297 Status: progressing Assessment/Plan av shunt per dr joseph afebril esrd on hd [facility] [place] is in by urlogist afebrile dc planning to snf Subjective ROS Limited/Unobtainable: Yes Constitutional: Reports: no symptoms Allergies: Coded Allergies: No Known Allergies (Unverified , 05/25/13) Objective Last 24 Hour Vital Signs Date Time Temp Pulse Resp B/P Pulse Ox O2 Delivery O2 Flow Rate FiO2 03/20/16 11:36 Room Air 03/20/16 11:35 97.0 74 18 107/56 Room Air 03/20/16 08:30 97.2 72 20 123/59 94 03/20/16 08:30 Room Air 03/20/16 08:00 97.5 78 22 123/59 98 Room Air 03/20/16 04:00 97.9 81 22 107/59 97 Room Air 03/20/16 00:00 97.9 74 20 93/44 94 Room Air 03/19/16 21:34 133/72 03/19/16 20:00 98.4 74 22 128/78 99 Room Air 03/19/16 16:00 95.9 75 18 133/72 98 Room Air Intake and Output 03/19/16 03/20/16 19:00 07:00 Intake Total 600 ml 240 ml Output Total 400 ml 1400 ml Balance 200 ml -1160 ml Intake Oral 600 ml 240 ml Output Urine Total 400 ml 1400 ml # Bowel Movements 3 Laboratory Tests 03/20/16 05:40: White Blood Count 10.8, Red Blood Count 3.90L, Hemoglobin 11.1L, Hematocrit 36.5L, Mean Corpuscular Volume 94, Mean Corpuscular Hemoglobin 28.4, Mean Corpuscular Hemoglobin Concent 30.3L, Red Cell Distribution Width 14.0, Platelet Count 365, Mean Platelet Volume 5.3L, Neutrophils (%) (Auto) 58.3, Lymphocytes (%) (Auto) 29.9, Monocytes (%) (Auto) 7.1, Eosinophils (%) (Auto) 3.9H, Basophils (%) (Auto) 0.8, Prothrombin Time 9.7, Prothromb Time International Ratio 1.0, Activated Partial Thromboplast Time 27, Sodium Level 139, Potassium Level 4.6, Chloride Level 98, Carbon Dioxide Level 24, Anion Gap 17H, Blood Urea Nitrogen 56H, Creatinine 4.0H, Estimat Glomerular Filtration Rate , Glucose Level 110H, Calcium Level 8.4L Height (Feet): 5 Height (Inches): 4.00 Weight (Pounds): 130 EENT: PERRL/EOMI Cardiovascular: normal peripheral pulses, normal rate Respiratory/Chest: lungs clear Abdomen: soft Dolly Narvaez MD Mar 20, 2016 14:20
--- NOTE | 2016-03-20 14:24 | Immediate Post-Op Evaluation ---
Immediate Post-Op Evalulation Immediate Post-Op Evalulation Procedure: AV Fistula L Arm Date of Evaluation: Mar 20, 2016 Time of Evaluation: 14:34 IV Fluids: 350 NS Blood Products: 0 Estimated Blood Loss: 25 Urinary Output: 0 Blood Pressure Systolic: 109 Blood Pressure Diastolic: 47 Pulse Rate: 66 Respiratory Rate: 16 O2 Sat by Pulse Oximetry: 98 Temperature (Fahrenheit): 98.2 Pain Score (1-10): 0 Nausea: No Vomiting: No Complications 0 Patient Status: awake, reacts, patent, extubated, none Hydration Status: adequate Mac Rankin MD Mar 20, 2016 14:24
--- NOTE | 2016-03-20 14:37 | Operative Note - PDOC ---
Operative Note Operative Note Pre-op Diagnosis: ESRD need for HD access Procedure: Left arm arteriovenous shunt placement Post-op Diagnosis: same as pre-op Surgeon: Cecil Dave MD Anesthesiologist: Mac Waldrop Specimen: none Complications: none Condition: stable Fluids: 300cc Estimated Blood Loss: minimal Drains: none Implant(s) used?: No CECIL DAVE Mar 20, 2016 14:37
--- NOTE | 2016-03-20 16:12 | General Progress Note ---
Assessment/Plan Assessment/Plan ASSESSMENT: 1. Anemia 2/2 chronic disease, hgb >11 2. Thrombocytopenia, due to infection and sepsis. Improved >200k 3. Leukopenia - Improved 4. Bilateral pulmonary masses bilaterally, potential 2/2 pneumonia process. Has improved as well 5. Health care associated PNA - improved 6. ESRD on HD 7. UTI RECOMMENDATIONS: 1. Monitor counts 2. Transfuse as needed 3. Antibiotics as needed 4. Transfuse prbc >7 5. DVT ppx heparin sq 6. Followup on GI, ID, renal, pulm recs 7. D/W staff Thank you, Gigi Aguirre MD Subjective Constitutional: Reports: no symptoms HEENT: Reports: no symptoms Cardiovascular: Reports: no symptoms Respiratory: Reports: no symptoms Gastrointestinal/Abdominal: Reports: poor appetite Genitourinary: Reports: no symptoms Neurologic/Psychiatric: Reports: no symptoms Endocrine: Reports: no symptoms Hematologic/Lymphatic: Reports: anemia Allergies: Coded Allergies: No Known Allergies (Unverified , 05/25/13) Subjective stable, no bleeding reported Objective Last 24 Hour Vital Signs Date Time Temp Pulse Resp B/P Pulse Ox O2 Delivery O2 Flow Rate FiO2 03/20/16 15:20 67 22 135/54 Nasal Cannula 3.0 03/20/16 15:10 67 21 126/48 Nasal Cannula 3.0 03/20/16 15:00 66 20 124/51 Nasal Cannula 3.0 03/20/16 14:50 65 19 117/44 Nasal Cannula 3.0 03/20/16 14:40 68 18 121/42 Nasal Cannula 3.0 03/20/16 14:30 68 16 114/46 Nasal Cannula 3.0 03/20/16 14:25 65 18 111/49 Nasal Cannula 3.0 03/20/16 14:24 66 16 98 03/20/16 14:23 97.1 68 21 109/47 Simple Mask 6.0 03/20/16 11:36 Room Air 03/20/16 11:35 97.0 74 18 107/56 Room Air 03/20/16 08:30 97.2 72 20 123/59 94 03/20/16 08:30 Room Air 03/20/16 08:00 97.5 78 22 123/59 98 Room Air 03/20/16 04:00 97.9 81 22 107/59 97 Room Air 03/20/16 00:00 97.9 74 20 93/44 94 Room Air 03/19/16 21:34 133/72 03/19/16 20:00 98.4 74 22 128/78 99 Room Air Intake and Output 03/19/16 03/20/16 19:00 07:00 Intake Total 600 ml 240 ml Output Total 400 ml 1400 ml Balance 200 ml -1160 ml Intake Oral 600 ml 240 ml Output Urine Total 400 ml 1400 ml # Bowel Movements 3 Laboratory Tests 03/20/16 05:40: White Blood Count 10.8, Red Blood Count 3.90L, Hemoglobin 11.1L, Hematocrit 36.5L, Mean Corpuscular Volume 94, Mean Corpuscular Hemoglobin 28.4, Mean Corpuscular Hemoglobin Concent 30.3L, Red Cell Distribution Width 14.0, Platelet Count 365, Mean Platelet Volume 5.3L, Neutrophils (%) (Auto) 58.3, Lymphocytes (%) (Auto) 29.9, Monocytes (%) (Auto) 7.1, Eosinophils (%) (Auto) 3.9H, Basophils (%) (Auto) 0.8, Prothrombin Time 9.7, Prothromb Time International Ratio 1.0, Activated Partial Thromboplast Time 27, Sodium Level 139, Potassium Level 4.6, Chloride Level 98, Carbon Dioxide Level 24, Anion Gap 17H, Blood Urea Nitrogen 56H, Creatinine 4.0H, Estimat Glomerular Filtration Rate , Glucose Level 110H, Calcium Level 8.4L Height (Feet): 5 Height (Inches): 4.00 Weight (Pounds): 130 General Appearance: no apparent distress EENT: TMs normal Neck: supple Cardiovascular: regular rhythm Respiratory/Chest: lungs clear Abdomen: non tender Extremities: non-tender Edema: no edema noted Leg (L), no edema noted Leg (R) Edema: mild edema Neurologic: alert Skin: warm/dry Gigi Aguirre Mar 20, 2016 16:12
--- NOTE | 2016-03-20 17:51 | Infectious Diseases Prog Note ---
Assessment/Plan Problems: (1) Colonization with VRE (vancomycin-resistant enterococcus) Assessment & Plan: keep in contact isolation , while in hospital (2) Dialysis catheter clot or failure Assessment & Plan: no evidence of sepsis, blood culture remains negative , S/ P HD cath removal. (3) Diabetes Assessment & Plan: recommend tight glycemic control to keep blood glucose between 80-120 (4) CVA (cerebral vascular accident) Assessment & Plan: stable, continue meds , follow with neurology Subjective Constitutional: Denies: anorexia, chills, drenching sweats, fatigue, fever, no symptoms, other HEENT: Denies: congestion, coryza, dysphagia, hearing change, no symptoms, other, visual change Respiratory: Denies: dry cough, no symptoms, other, productive cough, shortness of breath Breasts: Denies: discharge, no symptoms, other, swelling, tenderness Cardiovascular: Denies: chest pain, dyspnea on exertion, no symptoms, other, palpitations Gastrointestinal/Abdominal: Denies: bloating, blood in stool, constipation, diarrhea, nausea, no symptoms, other, vomiting Genitourinary: Denies: dysuria, frequency, hematuria, no symptoms, nocturia, other Neurologic: Denies: confusion, headache, no symptoms, numbness, other, weakness Psychiatric: Denies: anxiety, depression, no symptoms, other Skin: Denies: no symptoms, other, rash, ulcer Endocrine: Denies: feels cold, feels warm, no symptoms, other Allergies: Coded Allergies: No Known Allergies (Unverified , 05/25/13) Subjective he was doing well, had new HD cath placed with site looks intact, no skin redness or discharge. denied any fever or chills. Objective Vital Signs Last 24 Hour Vital Signs Date Time Temp Pulse Resp B/P Pulse Ox O2 Delivery O2 Flow Rate FiO2 03/20/16 15:20 67 22 135/54 Nasal Cannula 3.0 03/20/16 15:10 67 21 126/48 Nasal Cannula 3.0 03/20/16 15:00 66 20 124/51 Nasal Cannula 3.0 03/20/16 14:50 65 19 117/44 Nasal Cannula 3.0 03/20/16 14:40 68 18 121/42 Nasal Cannula 3.0 03/20/16 14:30 68 16 114/46 Nasal Cannula 3.0 03/20/16 14:25 65 18 111/49 Nasal Cannula 3.0 03/20/16 14:24 66 16 98 03/20/16 14:23 97.1 68 21 109/47 Simple Mask 6.0 03/20/16 11:36 Room Air 03/20/16 11:35 97.0 74 18 107/56 Room Air 03/20/16 08:30 97.2 72 20 123/59 94 03/20/16 08:30 Room Air 03/20/16 08:00 97.5 78 22 123/59 98 Room Air 03/20/16 04:00 97.9 81 22 107/59 97 Room Air 03/20/16 00:00 97.9 74 20 93/44 94 Room Air 03/19/16 21:34 133/72 03/19/16 20:00 98.4 74 22 128/78 99 Room Air Height (Feet): 5 Height (Inches): 4.00 Weight (Pounds): 130 General Appearance: WD/WN, no acute distress HEENT: normocephalic, atraumatic, anicteric, mucous membranes moist Respiratory/Chest: chest wall non-tender, lungs clear, normal breath sounds, no respiratory distress, no accessory muscle use Cardiovascular: normal peripheral pulses, normal rate, regular rhythm, no gallop/murmur, no JVD Abdomen: normal bowel sounds, soft, non tender, no organomegaly, non distended , no mass, no scars Extremities: no cyanosis, no clubbing Skin: no rash, no lesions, no ulcers Laboratory Tests Test 03/20/16 05:40 White Blood Count 10.8 K/UL (4.8-10.8) Red Blood Count 3.90 M/UL (4.70-6.10) L Hemoglobin 11.1 G/DL (14.2-18.0) L Hematocrit 36.5 % (42.0-52.0) L Mean Corpuscular Volume 94 FL (80-99) Mean Corpuscular Hemoglobin 28.4 PG (27.0-31.0) Mean Corpuscular Hemoglobin Concent 30.3 G/DL (32.0-36.0) L Red Cell Distribution Width 14.0 % (11.6-14.8) Platelet Count 365 K/UL (150-450) Mean Platelet Volume 5.3 FL (6.5-10.1) L Neutrophils (%) (Auto) 58.3 % (45.0-75.0) Lymphocytes (%) (Auto) 29.9 % (20.0-45.0) Monocytes (%) (Auto) 7.1 % (1.0-10.0) Eosinophils (%) (Auto) 3.9 % (0.0-3.0) H Basophils (%) (Auto) 0.8 % (0.0-2.0) Prothrombin Time 9.7 SEC (9.30-11.50) Prothromb Time International Ratio 1.0 (0.9-1.1) Activated Partial Thromboplast Time 27 SEC (23-33) Sodium Level 139 mEQ/L (135-145) Potassium Level 4.6 mEQ/L (3.4-4.9) Chloride Level 98 mEQ/L (98-107) Carbon Dioxide Level 24 mEQ/L (20-30) Anion Gap 17 (5-15) H Blood Urea Nitrogen 56 mg/dL (7-23) H Creatinine 4.0 mg/dL (0.7-1.2) H Estimat Glomerular Filtration Rate mL/min (>60) Glucose Level 110 mg/dL (74-106) H Calcium Level 8.4 mg/dL (8.6-10.2) L Current Medications Medications (Trade) Dose Ordered Sig/Stephany Route PRN Reason Start Time Stop Time Status Last Admin Dose Admin Acetaminophen/ Hydrocodone Bitart ([place] 5/325) 1 tab Q1H PRN ORAL Mild Pain (Pain Scale 1-3) 03/20/16 12:30 03/20/16 18:30 Acetaminophen/ Hydrocodone Bitart ([place] 7.5/325) 1 ea Q1H PRN ORAL Moderate Pain (Pain Scale 4-6) 03/20/16 12:30 03/20/16 18:30 Al Hydroxide/Mg Hydroxide (Mylanta) 15 ml Q1H PRN ORAL gi upset 03/20/16 12:30 03/20/16 18:30 Amlodipine Besylate (Norvasc) 2.5 mg DAILY ORAL 03/19/16 11:30 04/18/16 11:29 03/19/16 12:04 Atropine Sulfate 0.5 mg 0.5 mg Q5M PRN IV HR <40 03/20/16 12:30 03/20/16 18:30 Benazepril HCl (Lotensin) 20 mg Q12HR ORAL 03/17/16 12:00 04/16/16 11:59 03/19/16 21:34 Clonidine HCl (Catapres) 0.1 mg Q4H PRN ORAL BP over 170 syst 03/17/16 15:45 04/16/16 15:44 Dextrose (Dextrose 50%) STAT PRN IV Hypoglycemia 03/17/16 13:45 04/16/16 13:44 Diphenhydramine HCl (Benadryl) 25 mg Q15M PRN IVP Itching 03/20/16 12:30 03/20/16 18:30 Fentanyl Citrate (Sublimaze 100 mcg/2 mL) 25 mcg Q10M PRN IV Moderate Pain (Pain Scale 4-6) 03/20/16 12:30 03/20/16 18:30 Finasteride (Proscar) 5 mg DAILY ORAL 03/18/16 09:00 04/17/16 08:59 03/19/16 08:09 Gemfibrozil (Lopid) 600 mg TWICE A DAY ORAL 03/15/16 21:00 04/14/16 20:59 03/20/16 17:17 Heparin Sodium (Porcine) (Heparin 5000 units/ml) 5,000 units EVERY 12 HOURS SUBQ 03/18/16 21:00 04/17/16 20:59 03/19/16 21:36 Hydralazine HCl (Apresoline) 5 mg Q30M PRN IV SBP>160 / DBP>90 03/20/16 12:30 03/20/16 18:30 Hydromorphone HCl (Dilaudid) 0.5 mg Q15M PRN IVP Severe Pain (Pain Scale 7-10) 03/20/16 12:30 03/20/16 18:30 03/20/16 14:42 Insulin Aspart (NovoLOG) BEFORE MEALS AND HS SUBQ 03/17/16 16:30 04/16/16 16:29 03/19/16 21:37 Insulin Detemir (Levemir) 5 units EVERY 12 HOURS SUBQ 03/19/16 09:00 04/18/16 08:59 03/19/16 21:36 Ketorolac Tromethamine (Toradol 30mg) 15 mg Q1H PRN IV Moderate Breakthru Pain (5-7) 03/20/16 12:30 03/20/16 18:30 Ketorolac Tromethamine (Toradol) 60 mg Q1H PRN IV Severe Breakthru Pain (>7) 03/20/16 12:30 03/20/16 18:30 Labetalol HCl (Normodyne) 5 mg Q10M PRN IV SBP>160 / DBP>90 03/20/16 12:30 03/20/16 18:30 Lactated Ringer's (Lactated Ringer's 1000ml) 1,000 ml @ 10 mls/hr Q24H IVLG 03/20/16 12:22 03/20/16 18:30 Lorazepam (Ativan 2mg/ml 1ml) 1 mg Q15M PRN IV For Anxiety 03/20/16 12:30 03/20/16 18:30 Meperidine HCl (Demerol) 25 mg Q5M PRN IV Shivering. May repeat x 1 03/20/16 12:30 03/20/16 18:30 Metoclopramide HCl (Reglan) 10 mg Q1H PRN IVP Nausea & Vomiting 03/20/16 12:30 03/20/16 18:30 Midazolam HCl (Versed 2mg/2ml vial) 1 mg Q15M PRN IVP For Anxiety 03/20/16 12:30 03/20/16 18:30 Ondansetron HCl (Zofran) 4 mg Q1H PRN IVP Nausea & Vomiting 03/20/16 12:30 03/20/16 18:30 Oxycodone/ Acetaminophen (Percocet 5-325) 1 tab Q1H PRN ORAL Severe Pain (Pain Scale 7-10) 03/20/16 12:30 03/20/16 18:30 Tamsulosin HCl (Flomax) 0.4 mg BEDTIME ORAL 03/18/16 22:00 04/17/16 21:59 03/19/16 21:33 Jovita Mtz M.D. Mar 20, 2016 17:51
[2016-03-20] MEDS: Tamsulosin 0.4mg cap ORAL SCH (21:09)
[2016-03-21] VITALS: BP 152/75
--- NOTE | 2016-03-21 01:07 | Operative Note - Dictated ---
DATE OF OPERATION: 03/20/2016 SURGEON: Deep Monson M.D. ANESTHESIOLOGIST: Mac Rankin M.D. PREOPERATIVE DIAGNOSES: 1. End-stage renal failure, requiring permanent access for hemodialysis. 2. History of dementia, stroke, diabetes mellitus, and dyslipidemia. POSTOPERATIVE DIAGNOSES: 1. End-stage renal failure, requiring permanent access for hemodialysis. 2. History of dementia, stroke, diabetes mellitus, and dyslipidemia. PROCEDURE: 1. Placement of left antecubital brachial artery to cephalic vein arteriovenous fistula. 2. Exploration and dilatation of left upper arm cephalic vein. ANESTHESIA: Local sedation. COMPLICATIONS: None. FINDINGS: Suitable left cephalic vein measured about 3 to 4 mm size with good venous flush. Left brachial artery was larger, measured about 6 mm in size. AV shunt creation was placed. The patient had a strongly palpable thrill and radial pulse. The patient will require 6 to 8 weeks of time prior to AV shunt access use. INDICATION FOR THE PROCEDURE: This is an 80-year-old male who presented for evaluation and procedure. Risks and benefits were discussed with the patient and family, and consent was obtained. DESCRIPTION OF PROCEDURE: The patient was brought to the procedure room. After a dose of antibiotics and sedation by the anesthesiologist, the left arm was prepped and draped in the usual sterile manner. A transverse antecubital incision was made. Subcutaneous tissue was divided. Cephalic vein was sharply exposed. This was adequate for AV shunt creation distally. This was divided between 2-0 silk sutures. The proximal cephalic vein was flushed with heparinized saline solution. Coronary dilator up to 3.5 was advanced without difficulty. The vein was spatulated. The left brachial artery was sharply dissected. Proximal double loop control was obtained. Arteriotomy less than half a centimeter was carried out. The left brachial artery was flushed with heparinized saline solution. End of the cephalic vein to the left brachial arteriotomy anastomosis was carried out using a running 7-0 Prolene suture. Forward and backward flush was given. Anastomosis was completed. Flow was restored with a strongly palpable thrill and radial pulse. Anastomosis remained hemostatic. Wound was irrigated with antibiotic irrigation and closed using interrupted 3-0 Vicryl suture. The skin was closed using 4-0 Monocryl, subcuticular skin closure. Sterile dressing was applied. The patient tolerated the procedure very well. Deep Monson M.D. DR: ABIODUN JOB#: [id number] CC: Tali Hagen M.D. ; Fax#: [phone]
[2016-03-21 04:00] VITALS: BP 138/63
[2016-03-21] MEDS: NovoLOG Insulin Flexpen SUBQ SCH ×4 (06:20→20:44)
--- NOTE | 2016-03-21 07:10 | 48 Hour Post Anesthesia Eval ---
Post Anesthesia Evaluation Procedure: AV Fistula L Arm Date of Evaluation: Mar 21, 2016 Time of Evaluation: 06:36 Blood Pressure Systolic: 138 0: 63 Pulse Rate: 76 Respiratory Rate: 18 Temperature (Fahrenheit): 97.4 O2 Sat by Pulse Oximetry: 98 Airway: patent Nausea: No Vomiting: No Pain Intensity: 1 Hydration Status: adequate Cardiopulmonary Status: Stable Mental Status/LOC: patient returned to baseline Follow-up Care/Observations: 0 Post-Anesthesia Complications: 0 Follow-up care needed: N/A Mac Rankin MD Mar 21, 2016 07:10
[2016-03-21 08:00] VITALS: BP 134/69
[2016-03-21] MEDS: Levemir Flexpen SUBQ SCH ×2 (09:00→20:45)
[2016-03-21] MEDS: Heparin 5000 units/ml inj SUBQ SCH ×2 (09:13→20:44)
[2016-03-21] MEDS: Benazepril 10mg tab ORAL SCH ×2 (11:04→20:46)
--- NOTE | 2016-03-21 11:05 | Diagnostic Imaging Report ---
Indications: Trauma Technique: Spiral acquisitions obtained through the brain. Angled axial and coronal 5 x 5 mm slices were reconstructed. Total dose length product 1277 mGycm. CTDI vol(s) 70 mGy Comparison: 12/28/2015 Findings: Again demonstrated is left frontal encephalomalacia. There is age-related enlargement of ventricles and extra-axial CSF spaces. There is mild periventricular the white matter chronic ischemic change. No acute hemorrhage or edema. No mass effect or midline shift. Normal owen-white differentiation. There is minimal bilateral mastoid disease. There is bilateral ethmoid sinus mucosal thickening. Intact calvarium. There is evidence of prior cataract surgery on the left. No significant interim change Impression: Chronic and age-related changes, including old left frontal infarct. Negative for acute intracranial bleed or mass effect The CT scanner at [facility] is accredited by the [employer] and the scans are performed using protocols designed to limit radiation exposure to as low as reasonably achievable to attain images of sufficient resolution adequate for diagnostic evaluation.
[2016-03-21 11:43] VITALS: BP 137/72
[2016-03-21] MEDS ORDERED: NORVASC2.5 MG ORAL (15:02)
--- NOTE | 2016-03-21 15:02 | General Progress Note ---
Assessment/Plan Problem List: (1) Urinary retention ICD Codes: R33.9 - Urinary retention SNOMED: 779873345 (2) UTI (lower urinary tract infection) ICD Codes: N39.0 - Urinary tract infection, site not specified SNOMED: 1343930 (3) Dialysis complication ICD Codes: T82.898A - Other specified complication of vascular prosthetic devices, implants and grafts, initial encounter SNOMED: 47309863, 97346860, 687622401 (4) Diabetes ICD Codes: E11.9 - Type 2 diabetes mellitus without complications SNOMED: 11588146 (5) CVA (cerebral vascular accident) ICD Codes: I63.9 - Cerebral infarction, unspecified SNOMED: 938004173 (6) Dialysis catheter clot or failure SNOMED: 73026769 Status: progressing Assessment/Plan av shunt per dr joseph was done he is cleared to go to snf by renal and vascular surgeon so dc to snf Subjective ROS Limited/Unobtainable: Yes Constitutional: Reports: no symptoms Allergies: Coded Allergies: No Known Allergies (Unverified , 05/25/13) Objective Last 24 Hour Vital Signs Date Time Temp Pulse Resp B/P Pulse Ox O2 Delivery O2 Flow Rate FiO2 03/21/16 11:43 97.5 73 18 137/72 99 Room Air 03/21/16 11:04 134/69 03/21/16 09:12 84 134/69 03/21/16 08:00 97.6 84 18 134/69 97 Room Air 03/21/16 07:10 76 18 98 03/21/16 04:00 97.4 76 18 138/63 98 Room Air 03/21/16 00:00 97.6 79 18 152/75 98 Room Air 03/20/16 21:10 154/78 03/20/16 20:00 97.3 81 20 139/56 97 Room Air 03/20/16 15:20 67 22 135/54 Nasal Cannula 3.0 03/20/16 15:10 67 21 126/48 Nasal Cannula 3.0 Intake and Output 03/20/16 03/21/16 19:00 07:00 Intake Total 500 ml Output Total 325 ml 1100 ml Balance 175 ml -1100 ml IV Total 500 ml Output Urine Total 300 ml 1100 ml Hemodialysis UF 0 ml Estimated Blood Loss 25 ml Height (Feet): 5 Height (Inches): 4.00 Weight (Pounds): 130 EENT: PERRL/EOMI Neck: supple Cardiovascular: normal rate Respiratory/Chest: lungs clear Abdomen: soft Dolly Narvaez MD Mar 21, 2016 15:02
[2016-03-21] MEDS ORDERED: BENAZEPRIL HCL20 MG ORAL (15:04)
[2016-03-21] MEDS ORDERED: CLONIDINE HCL0.1 MG PO (15:08)
[2016-03-21] MEDS ORDERED: BENAZEPRIL HCL10 MG ORAL (15:12)
[2016-03-21] MEDS ORDERED: FINASTERIDE5 MG ORAL (15:12)
[2016-03-21] MEDS ORDERED: GEMFIBROZIL600 MG ORAL (15:13)
[2016-03-21] MEDS ORDERED: HEPARIN SO5000 UNIT2 SUBQ (15:14)
[2016-03-21] MEDS ORDERED: NOVOLOG100 UNITS1 SUBQ (15:15)
[2016-03-21] MEDS ORDERED: LEVEMIR FL100 UNIT/1 SUBQ (15:16)
[2016-03-21] MEDS ORDERED: FLOMAX0.4 MG ORAL (15:18)
--- NOTE | 2016-03-21 15:21 | General Progress Note ---
Assessment/Plan Status: stable Assessment/Plan Status- Chronic renal failure- on HD Nephrotic Range proteinuria h/o Metabolic Acidosis- h/o UTI DM OOC HTN bilateral [place] JENNIFER: Moderate bilateral hydronephrosis. Previous CT examination showed similar findings. The finding is likely associated with the abnormal urinary bladder and/or involvement of the bladder base by an enlarged prostate gland or mass. Further evaluation by a urologist is recommended. Bladder calculus with intraluminal debris and/or blood. Echogenic kidneys consistent with medical renal disease. Plan: HD done 03/20 Stool for C diff neg. Uro eval-NOTED 24 H urine CrCl- 15 with over 5 gram protein in 24 h urine collection- BS control- adjust BP meds- add Norvasc DC ? Subjective ROS Limited/Unobtainable: No Allergies: Coded Allergies: No Known Allergies (Unverified , 05/25/13) Objective Last 24 Hour Vital Signs Date Time Temp Pulse Resp B/P Pulse Ox O2 Delivery O2 Flow Rate FiO2 03/21/16 11:43 97.5 73 18 137/72 99 Room Air 03/21/16 11:04 134/69 03/21/16 09:12 84 134/69 03/21/16 08:00 97.6 84 18 134/69 97 Room Air 03/21/16 07:10 76 18 98 03/21/16 04:00 97.4 76 18 138/63 98 Room Air 03/21/16 00:00 97.6 79 18 152/75 98 Room Air 03/20/16 21:10 154/78 03/20/16 20:00 97.3 81 20 139/56 97 Room Air 03/20/16 15:20 67 22 135/54 Nasal Cannula 3.0 Intake and Output 03/20/16 03/21/16 19:00 07:00 Intake Total 500 ml Output Total 325 ml 1100 ml Balance 175 ml -1100 ml IV Total 500 ml Output Urine Total 300 ml 1100 ml Hemodialysis UF 0 ml Estimated Blood Loss 25 ml Current Medications Medications (Trade) Dose Ordered Sig/Stephany Route PRN Reason Start Time Stop Time Status Last Admin Dose Admin Amlodipine Besylate (Norvasc) 2.5 mg DAILY ORAL 03/19/16 11:30 04/18/16 11:29 03/21/16 09:12 Benazepril HCl (Lotensin) 20 mg Q12HR ORAL 03/17/16 12:00 2/19/17 11:59 03/21/16 11:04 Clonidine HCl (Catapres) 0.1 mg Q4H PRN ORAL BP over 170 syst 03/17/16 15:45 04/16/16 15:44 Dextrose (Dextrose 50%) STAT PRN IV Hypoglycemia 03/17/16 13:45 04/16/16 13:44 Finasteride (Proscar) 5 mg DAILY ORAL 03/18/16 09:00 04/17/16 08:59 03/21/16 09:12 Gemfibrozil (Lopid) 600 mg TWICE A DAY ORAL 03/15/16 21:00 04/14/16 20:59 03/21/16 09:11 Heparin Sodium (Porcine) (Heparin 5000 units/ml) 5,000 units EVERY 12 HOURS SUBQ 03/18/16 21:00 04/17/16 20:59 03/21/16 09:13 Insulin Aspart (NovoLOG) BEFORE MEALS AND HS SUBQ 03/17/16 16:30 04/16/16 16:29 03/21/16 11:41 Insulin Detemir (Levemir) 5 units EVERY 12 HOURS SUBQ 03/19/16 09:00 04/18/16 08:59 03/20/16 21:12 Tamsulosin HCl (Flomax) 0.4 mg BEDTIME ORAL 03/18/16 22:00 04/17/16 21:59 03/20/16 21:09 Height (Feet): 5 Height (Inches): 4.00 Weight (Pounds): 130 General Appearance: no apparent distress Respiratory/Chest: decreased breath sounds Abdomen: soft Objective PE not changed JILL MACEDO Mar 21, 2016 15:21
[2016-03-21 16:00] VITALS: BP 128/68
--- NOTE | 2016-03-21 16:56 | General Progress Note ---
Assessment/Plan Assessment/Plan ASSESSMENT: 1. Anemia 2/2 chronic disease, hgb has been stable, >11 2. Thrombocytopenia, due to infection and sepsis. Improved >200k 3. Leukopenia - Improved 4. Bilateral pulmonary masses bilaterally, potential 2/2 pneumonia process. Has improved 5. Health care associated PNA - improved 6. ESRD on HD 7. UTI RECOMMENDATIONS: 1. Monitor counts 2. Transfuse as needed 3. Antibiotics as needed 4. Transfuse prbc >7 5. DVT ppx heparin sq 6. Followup on GI, ID, renal, pulm recs 7. D/W staff Thank you, Gigi Aguirre MD Subjective Constitutional: Reports: no symptoms HEENT: Reports: no symptoms Cardiovascular: Reports: no symptoms Respiratory: Reports: no symptoms Gastrointestinal/Abdominal: Reports: poor appetite Genitourinary: Reports: no symptoms Neurologic/Psychiatric: Reports: anxiety Endocrine: Reports: no symptoms Hematologic/Lymphatic: Reports: anemia Allergies: Coded Allergies: No Known Allergies (Unverified , 05/25/13) Subjective stable, no bleeding reported, dumont in place Objective Last 24 Hour Vital Signs Date Time Temp Pulse Resp B/P Pulse Ox O2 Delivery O2 Flow Rate FiO2 03/21/16 16:00 97.7 76 20 128/68 99 Room Air 03/21/16 11:43 97.5 73 18 137/72 99 Room Air 03/21/16 11:04 134/69 03/21/16 09:12 84 134/69 03/21/16 08:00 97.6 84 18 134/69 97 Room Air 03/21/16 07:10 76 18 98 03/21/16 04:00 97.4 76 18 138/63 98 Room Air 03/21/16 00:00 97.6 79 18 152/75 98 Room Air 03/20/16 21:10 154/78 03/20/16 20:00 97.3 81 20 139/56 97 Room Air Intake and Output 03/20/16 03/21/16 19:00 07:00 Intake Total 500 ml Output Total 325 ml 1100 ml Balance 175 ml -1100 ml IV Total 500 ml Output Urine Total 300 ml 1100 ml Hemodialysis UF 0 ml Estimated Blood Loss 25 ml Height (Feet): 5 Height (Inches): 4.00 Weight (Pounds): 130 General Appearance: no apparent distress EENT: TMs normal Neck: supple Cardiovascular: normal rate Respiratory/Chest: chest wall non-tender Abdomen: non tender Extremities: normal inspection Edema: 1+ Leg (L), 1+ Leg (R) Edema: mild edema Neurologic: alert Skin: warm/dry Gigi Aguirre Mar 21, 2016 16:56
--- NOTE | 2016-03-21 17:26 | Infectious Diseases Prog Note ---
Assessment/Plan Problems: (1) Colonization with VRE (vancomycin-resistant enterococcus) Assessment & Plan: keep in contact isolation , while in hospital (2) Dialysis catheter clot or failure Assessment & Plan: no evidence of sepsis, blood culture remains negative , S/ P HD cath removal. (3) Diabetes Assessment & Plan: recommend tight glycemic control to keep blood glucose between 80-120 (4) CVA (cerebral vascular accident) Assessment & Plan: stable, continue meds , follow with neurology Subjective Constitutional: Denies: anorexia, chills, drenching sweats, fatigue, fever, no symptoms, other HEENT: Denies: congestion, coryza, dysphagia, hearing change, no symptoms, other, visual change Respiratory: Denies: dry cough, no symptoms, other, productive cough, shortness of breath Breasts: Denies: discharge, no symptoms, other, swelling, tenderness Cardiovascular: Denies: chest pain, dyspnea on exertion, no symptoms, other, palpitations Gastrointestinal/Abdominal: Denies: bloating, blood in stool, constipation, diarrhea, nausea, no symptoms, other, vomiting Genitourinary: Denies: dysuria, frequency, hematuria, no symptoms, nocturia, other Neurologic: Denies: confusion, headache, no symptoms, numbness, other, weakness Psychiatric: Denies: anxiety, depression, no symptoms, other Skin: Denies: no symptoms, other, rash, ulcer Allergies: Coded Allergies: No Known Allergies (Unverified , 05/25/13) Subjective he was doing well, had new HD cath placed with site looks intact, no skin redness or discharge. denied any fever or chills. Objective Vital Signs Last 24 Hour Vital Signs Date Time Temp Pulse Resp B/P Pulse Ox O2 Delivery O2 Flow Rate FiO2 03/21/16 16:00 97.7 76 20 128/68 99 Room Air 03/21/16 11:43 97.5 73 18 137/72 99 Room Air 03/21/16 11:04 134/69 03/21/16 09:12 84 134/69 03/21/16 08:00 97.6 84 18 134/69 97 Room Air 03/21/16 07:10 76 18 98 03/21/16 04:00 97.4 76 18 138/63 98 Room Air 03/21/16 00:00 97.6 79 18 152/75 98 Room Air 03/20/16 21:10 154/78 03/20/16 20:00 97.3 81 20 139/56 97 Room Air Height (Feet): 5 Height (Inches): 4.00 Weight (Pounds): 130 General Appearance: WD/WN, no acute distress HEENT: normocephalic, atraumatic, anicteric Respiratory/Chest: chest wall non-tender, lungs clear, normal breath sounds, no respiratory distress Cardiovascular: normal peripheral pulses, normal rate, regular rhythm, no gallop/murmur Abdomen: normal bowel sounds, soft, non tender, no organomegaly, non distended , no mass Extremities: no cyanosis Skin: no rash, no lesions, no ulcers Current Medications Medications (Trade) Dose Ordered Sig/Stephany Route PRN Reason Start Time Stop Time Status Last Admin Dose Admin Amlodipine Besylate (Norvasc) 2.5 mg DAILY ORAL 03/19/16 11:30 04/18/16 11:29 03/21/16 09:12 Benazepril HCl (Lotensin) 20 mg Q12HR ORAL 03/17/16 12:00 04/16/16 11:59 03/21/16 11:04 Clonidine HCl (Catapres) 0.1 mg Q4H PRN ORAL BP over 170 syst 03/17/16 15:45 04/16/16 15:44 Dextrose (Dextrose 50%) STAT PRN IV Hypoglycemia 03/17/16 13:45 04/16/16 13:44 Finasteride (Proscar) 5 mg DAILY ORAL 03/18/16 09:00 04/17/16 08:59 03/21/16 09:12 Gemfibrozil (Lopid) 600 mg TWICE A DAY ORAL 03/15/16 21:00 04/14/16 20:59 03/21/16 09:11 Heparin Sodium (Porcine) (Heparin 5000 units/ml) 5,000 units EVERY 12 HOURS SUBQ 03/18/16 21:00 04/17/16 20:59 03/21/16 09:13 Insulin Aspart (NovoLOG) BEFORE MEALS AND HS SUBQ 03/17/16 16:30 04/16/16 16:29 03/21/16 11:41 Insulin Detemir (Levemir) 5 units EVERY 12 HOURS SUBQ 03/19/16 09:00 04/18/16 08:59 03/20/16 21:12 Tamsulosin HCl (Flomax) 0.4 mg BEDTIME ORAL 03/18/16 22:00 04/17/16 21:59 03/20/16 21:09 Jovita Mtz M.D. Mar 21, 2016 17:26
[2016-03-21 20:00] VITALS: BP 122/60
[2016-03-21] MEDS: Tamsulosin 0.4mg cap ORAL SCH (20:43)
[2016-03-22] VITALS: BP 107/57
[2016-03-22 04:00] VITALS: BP 135/74
[2016-03-22] MEDS: NovoLOG Insulin Flexpen SUBQ SCH ×3 (06:30→17:57)
[2016-03-22 08:30] VITALS: BP 119/59
[2016-03-22] MEDS: Benazepril 10mg tab ORAL SCH (09:28)
[2016-03-22] MEDS: Heparin 5000 units/ml inj SUBQ SCH (09:31)
[2016-03-22] MEDS: Levemir Flexpen SUBQ SCH (09:32)
--- NOTE | 2016-03-22 10:03 | General Progress Note ---
Assessment/Plan Assessment/Plan ASSESSMENT: 1. Anemia 2/2 chronic disease, hgb has been stable, >11 2. Thrombocytopenia, due to infection and sepsis. Improved >200k 3. Leukopenia - has improved 4. Bilateral pulmonary masses b/l, potential 2/2 pneumonia process. Has improved 5. Health care associated PNA - improved 6. ESRD on HD 7. UTI RECOMMENDATIONS: 1. Monitor counts 2. Transfuse as needed 3. Antibiotics as needed 4. Transfuse prbc >7 5. DVT ppx heparin sq 6. Followup on GI, ID, renal, pulm recs 7. D/W staff Thank you, Gigi Aguirre MD Subjective Constitutional: Reports: no symptoms HEENT: Reports: no symptoms Cardiovascular: Reports: no symptoms Respiratory: Reports: no symptoms Gastrointestinal/Abdominal: Reports: poor appetite Genitourinary: Reports: no symptoms Neurologic/Psychiatric: Reports: no symptoms Endocrine: Reports: no symptoms Hematologic/Lymphatic: Reports: anemia Allergies: Coded Allergies: No Known Allergies (Unverified , 05/25/13) Subjective stable, no bleeding reported, new cath in place Objective Last 24 Hour Vital Signs Date Time Temp Pulse Resp B/P Pulse Ox O2 Delivery O2 Flow Rate FiO2 03/22/16 09:28 76 119/59 03/22/16 09:28 119/69 03/22/16 08:30 97.0 76 19 119/59 95 Room Air 03/22/16 04:00 97.5 74 18 135/74 98 Room Air 03/22/16 00:00 97.7 80 18 107/57 99 Room Air 03/21/16 20:46 122/60 03/21/16 20:00 96.8 81 18 122/60 99 Room Air 03/21/16 16:00 97.7 76 20 128/68 99 Room Air 03/21/16 11:43 97.5 73 18 137/72 99 Room Air 03/21/16 11:04 134/69 Intake and Output 03/21/16 03/22/16 19:00 07:00 Intake Total 720 ml 360 ml Output Total 1200 ml 100 ml Balance -480 ml 260 ml Intake Oral 720 ml 360 ml Output Urine Total 1200 ml 100 ml # Voids 2 # Bowel Movements 1 1 Height (Feet): 5 Height (Inches): 4.00 Weight (Pounds): 130 General Appearance: no apparent distress EENT: TMs normal Neck: supple Cardiovascular: regular rhythm Respiratory/Chest: normal breath sounds Abdomen: non tender Extremities: non-tender Edema: no edema noted Leg (L), no edema noted Leg (R) Edema: mild edema Neurologic: alert Skin: warm/dry Gigi Aguirre Mar 22, 2016 10:03
[2016-03-22 12:34] VITALS: BP 134/68
--- NOTE | 2016-03-22 13:47 | Cardiology Report ---
APPROVED REPORT EXAM: Two-dimensional and M-mode echocardiogram with Doppler and color Doppler. INDICATION Pre-Op M-Mode DIMENSIONS IVSd0.8 (0.7-1.1cm)Left Atrium (MM)3.7 (1.6-4.0cm) LVDd4.3 (3.5-5.6cm)Aortic Root3.1 (2.0-3.7cm) PWd1.3 (0.7-1.1cm)Aortic Cusp Exc.1.6 (1.5-2.0cm) LVDs2.8 (2.5-4.0cm) PWs1.5 cm Normal left ventricular chamber size, systolic function and wall motion. Left ventricular ejection fraction estimated to be 60-65 %. Mild left ventricular hypertrophy. Anterior Echo-free space, may be due to pericardial fat or effusion. Right cardiac chamber sizes are within normal limits. Mild left atrial enlargement by 2D. Focal aortic valve sclerosis with adequate cusp excursion Thickened mitral valve leaflets with normal excursion. Mild mitral annulus and aortic root calcification. Pulmonic valve not well visualized. Normal tricuspid valve structure. IVC is normal in size with physiologic collapse. A color flow and spectral Doppler study was performed and revealed: Mild aortic regurgitation. Mild mitral regurgitation. Left ventricular diastolic dysfunction grade 1. No tricuspid regurgitation.
--- NOTE | 2016-03-22 13:47 | Cardiology Report ---
APPROVED REPORT EKG Measurement Heart [id number] Normal sinus rhythm Normal ECG
--- NOTE | 2016-03-22 13:53 | General Progress Note ---
Assessment/Plan Problem List: (1) Urinary retention ICD Codes: R33.9 - Urinary retention SNOMED: 810115216 (2) UTI (lower urinary tract infection) ICD Codes: N39.0 - Urinary tract infection, site not specified SNOMED: 0275563 (3) Dialysis complication ICD Codes: T82.898A - Other specified complication of vascular prosthetic devices, implants and grafts, initial encounter SNOMED: 45580981, 09246734, 592991191 (4) Diabetes ICD Codes: E11.9 - Type 2 diabetes mellitus without complications SNOMED: 06061537 (5) CVA (cerebral vascular accident) ICD Codes: I63.9 - Cerebral infarction, unspecified SNOMED: 700342408 (6) Dialysis catheter clot or failure SNOMED: 52818401 Status: stable, progressing Assessment/Plan av shunt per dr joseph was done he is cleared to go to snf by renal and vascular surgeon so dc to snf today afebrile vitals improved htn elevated bp improoved Subjective ROS Limited/Unobtainable: Yes Allergies: Coded Allergies: No Known Allergies (Unverified , 05/25/13) Objective Last 24 Hour Vital Signs Date Time Temp Pulse Resp B/P Pulse Ox O2 Delivery O2 Flow Rate FiO2 03/22/16 12:34 97.0 73 19 134/68 95 Room Air 03/22/16 09:28 76 119/59 03/22/16 09:28 119/69 03/22/16 08:30 97.0 76 19 119/59 95 Room Air 03/22/16 04:00 97.5 74 18 135/74 98 Room Air 03/22/16 00:00 97.7 80 18 107/57 99 Room Air 03/21/16 20:46 122/60 03/21/16 20:00 96.8 81 18 122/60 99 Room Air 03/21/16 16:00 97.7 76 20 128/68 99 Room Air Intake and Output 03/21/16 03/22/16 19:00 07:00 Intake Total 720 ml 360 ml Output Total 1200 ml 100 ml Balance -480 ml 260 ml Intake Oral 720 ml 360 ml Output Urine Total 1200 ml 100 ml # Voids 2 # Bowel Movements 1 1 Height (Feet): 5 Height (Inches): 4.00 Weight (Pounds): 130 Neck: non-tender Cardiovascular: normal rate Respiratory/Chest: lungs clear Abdomen: soft Dolly Narvaez MD Mar 22, 2016 13:53
--- NOTE | 2016-03-22 14:36 | General Progress Note ---
Assessment/Plan Status: stable Assessment/Plan Status- Chronic renal failure- on HD Nephrotic Range proteinuria h/o Metabolic Acidosis- h/o UTI DM OOC HTN bilateral [place] JENNIFER: Moderate bilateral hydronephrosis. Previous CT examination showed similar findings. The finding is likely associated with the abnormal urinary bladder and/or involvement of the bladder base by an enlarged prostate gland or mass. Further evaluation by a urologist is recommended. Bladder calculus with intraluminal debris and/or blood. Echogenic kidneys consistent with medical renal disease. Plan: HD done 03/20 DC ? DC Rocha Stool for C diff neg. Uro eval-NOTED 24 H urine CrCl- 15 with over 5 gram protein in 24 h urine collection- BS control- adjust BP meds- add Norvasc DC ? Subjective ROS Limited/Unobtainable: No Constitutional: Reports: malaise Allergies: Coded Allergies: No Known Allergies (Unverified , 05/25/13) Objective Last 24 Hour Vital Signs Date Time Temp Pulse Resp B/P Pulse Ox O2 Delivery O2 Flow Rate FiO2 03/22/16 12:34 97.0 73 19 134/68 95 Room Air 03/22/16 09:28 76 119/59 03/22/16 09:28 119/69 03/22/16 08:30 97.0 76 19 119/59 95 Room Air 03/22/16 04:00 97.5 74 18 135/74 98 Room Air 03/22/16 00:00 97.7 80 18 107/57 99 Room Air 03/21/16 20:46 122/60 03/21/16 20:00 96.8 81 18 122/60 99 Room Air 03/21/16 16:00 97.7 76 20 128/68 99 Room Air Intake and Output 03/21/16 03/22/16 19:00 07:00 Intake Total 720 ml 360 ml Output Total 1200 ml 100 ml Balance -480 ml 260 ml Intake Oral 720 ml 360 ml Output Urine Total 1200 ml 100 ml # Voids 2 # Bowel Movements 1 1 Height (Feet): 5 Height (Inches): 4.00 Weight (Pounds): 130 General Appearance: no apparent distress Objective PE not changed JILL MACEDO Mar 22, 2016 14:36
[2016-03-22 16:29] VITALS: BP 138/78
--- NOTE | 2016-03-22 17:41 | Infectious Diseases Prog Note ---
Assessment/Plan Problems: (1) Colonization with VRE (vancomycin-resistant enterococcus) Assessment & Plan: keep in contact isolation , while in hospital (2) Dialysis catheter clot or failure Assessment & Plan: no evidence of sepsis, blood culture remains negative , S/ P HD cath removal. (3) Diabetes Assessment & Plan: recommend tight glycemic control to keep blood glucose between 80-120 (4) CVA (cerebral vascular accident) Assessment & Plan: stable, continue meds , follow with neurology Subjective Constitutional: Denies: anorexia, chills, drenching sweats, fatigue, fever, no symptoms, other HEENT: Denies: congestion, coryza, dysphagia, hearing change, no symptoms, other, visual change Respiratory: Denies: dry cough, no symptoms, other, productive cough, shortness of breath Breasts: Denies: discharge, no symptoms, other, swelling, tenderness Cardiovascular: Denies: chest pain, dyspnea on exertion, no symptoms, other, palpitations Gastrointestinal/Abdominal: Denies: bloating, blood in stool, constipation, diarrhea, nausea, no symptoms, other, vomiting Genitourinary: Denies: dysuria, frequency, hematuria, no symptoms, nocturia, other Neurologic: Denies: confusion, headache, no symptoms, numbness, other, weakness Psychiatric: Denies: anxiety, depression, no symptoms, other Skin: Denies: no symptoms, other, rash, ulcer Allergies: Coded Allergies: No Known Allergies (Unverified , 05/25/13) Subjective he was doing well, no skin redness or discharge at the dialysis cath site . denied any fever or chills. Objective Vital Signs Last 24 Hour Vital Signs Date Time Temp Pulse Resp B/P Pulse Ox O2 Delivery O2 Flow Rate FiO2 03/22/16 16:29 98.4 75 20 138/78 98 Room Air 03/22/16 12:34 97.0 73 19 134/68 95 Room Air 03/22/16 09:28 76 119/59 03/22/16 09:28 119/69 03/22/16 08:30 97.0 76 19 119/59 95 Room Air 03/22/16 04:00 97.5 74 18 135/74 98 Room Air 03/22/16 00:00 97.7 80 18 107/57 99 Room Air 03/21/16 20:46 122/60 03/21/16 20:00 96.8 81 18 122/60 99 Room Air Height (Feet): 5 Height (Inches): 4.00 Weight (Pounds): 130 General Appearance: WD/WN, no acute distress HEENT: normocephalic, atraumatic, anicteric, mucous membranes moist, PERRL Respiratory/Chest: chest wall non-tender, lungs clear, normal breath sounds, no respiratory distress, no accessory muscle use Cardiovascular: normal peripheral pulses, normal rate, regular rhythm, no gallop/murmur Abdomen: normal bowel sounds, soft, non tender, no organomegaly, non distended , no mass Extremities: no cyanosis, no clubbing Skin: no rash, no lesions, no ulcers Current Medications Medications (Trade) Dose Ordered Sig/Stephany Route PRN Reason Start Time Stop Time Status Last Admin Dose Admin Acetaminophen (Tylenol) 650 mg Q4H PRN ORAL Mild Pain/Temp > 100.5 03/21/16 18:00 04/20/16 17:59 03/21/16 20:46 Amlodipine Besylate (Norvasc) 2.5 mg DAILY ORAL 03/19/16 11:30 04/18/16 11:29 03/22/16 09:28 Benazepril HCl (Lotensin) 20 mg Q12HR ORAL 03/17/16 12:00 04/16/16 11:59 03/22/16 09:28 Clonidine HCl (Catapres) 0.1 mg Q4H PRN ORAL BP over 170 syst 03/17/16 15:45 04/16/16 15:44 Dextrose (Dextrose 50%) STAT PRN IV Hypoglycemia 03/17/16 13:45 04/16/16 13:44 Finasteride (Proscar) 5 mg DAILY ORAL 03/18/16 09:00 04/17/16 08:59 03/22/16 09:27 Gemfibrozil (Lopid) 600 mg TWICE A DAY ORAL 03/15/16 21:00 04/14/16 20:59 03/22/16 09:27 Heparin Sodium (Porcine) (Heparin 5000 units/ml) 5,000 units EVERY 12 HOURS SUBQ 03/18/16 21:00 04/17/16 20:59 03/22/16 09:31 Insulin Aspart (NovoLOG) BEFORE MEALS AND HS SUBQ 03/17/16 16:30 04/16/16 16:29 03/22/16 11:14 Insulin Detemir (Levemir) 5 units EVERY 12 HOURS SUBQ 03/19/16 09:00 04/18/16 08:59 03/22/16 09:32 Tamsulosin HCl (Flomax) 0.4 mg BEDTIME ORAL 03/18/16 22:00 04/17/16 21:59 03/21/16 20:43 Jovita Mtz M.D. Mar 22, 2016 17:41
--- NOTE | 2016-03-23 12:43 | Diagnostic Imaging Report ---
APPROVED REPORT CPT Code: G0365 Present Symptoms Comments: Assessment for venous access Vein Measurements(cm) Cephalic Basilic Right LeftRight Left 0.28Upper Arm0.230.32Mid Upper Arm0.50 0.26Mid Upper Arm0.260.25Antecubital Fossa0.42 0.25Upper Forearm 0.38Antecubital Fossa0.20Wrist The right and left basilic and cephalic veins were imaged and measured to evaluate as a potential graft for dialysis access. There was no evidence of thrombosis. Measurements are as above.
--- NOTE | 2016-03-23 12:43 | Diagnostic Imaging Report ---
APPROVED REPORT CPT Code: 31070 Present Symptoms Comments: Venous access assessment BILATERAL UPPER EXTREMITY: Imaging reveals patency of the internal jugular, subclavian, axillary and brachial veins. The cephalic and basilic veins are also patent. Doppler indicates normal spontaneous flow within these venous segments, bilaterally.
--- NOTE | 2016-03-23 12:43 | Diagnostic Imaging Report ---
APPROVED REPORT CPT Code: 81596 Symptoms Other : Assessment for dialysis access BIALTERAL UPPER EXTREMITY ARTERY: Imaging of the subclavian, axillary, brachial, radial and ulnar arteries is within normal limits. There is no evidence of stenosis or occlusion within these segments. The Doppler waveforms are consistent with normal inflow to the left upper extremity. There is minimal plaque in the left axillary artery. There is minimal calcification of the radial arteries bilaterally.
--- NOTE | 2016-03-23 20:08 | Discharge Summary ---
Discharge Summary Hospital Course Date of Admission Mar 15, 2016 at 12:30 Date of Discharge Mar 22, 2016 at 18:55 Admitting Diagnosis RENAL FAILURE NAYELI Dominguez is a 80 year old male who was admitted on Mar 15, 2016 at 12:30 for Renal Failure Hospital Course [id number] Discharge Discharge Disposition Patient was discharged to SNF/Subacute Facility(03) Discharge Diagnoses: Priscilla Arias NP Mar 23, 2016 20:08
--- NOTE | 2016-03-24 04:17 | Discharge Summary 2 SIG ---
DATE OF ADMISSION: 03/15/2016 DATE OF DISCHARGE: 03/22/2016 CONSULTANTS: 1. Deep Monson M.D. 2. Desmond Albright M.D. 3. Gigi Aguirre M.D. 4. Jovita Mtz M.D. 5. iMkey Brandt M.D. BRIEF HOSPITAL COURSE: The patient is an 80-year-old hemodialysis patient who is on hemodialysis and apparently dialysis catheter is not working and was brought in for further evaluation. BUN and creatinine was elevated. Dr. Brandt was consulted for inpatient dialysis. Dr. Mtz was also consulted for possible sepsis causing catheter clot and failure. Dr. Aguirre was consulted for evaluation of anemia. Anemia was assessed to be secondary to kidney disease and chronic disease. Malfunctioning subclavian catheter inserted two months ago was evaluated by interventional radiology and given tPA thrombolysis. Renal ultrasound done showed bilateral hydronephrosis with echogenic kidneys consistent with medical renal disease. Dr. Albright was consulted due to inability to pass Rocha catheter. Urology placed catheter in. Physical examination was essentially unremarkable. Catheter was with return of clear yellow urine output and was started on Flomax and finasteride. Dr. Monson was consulted for permanent access for dialysis. On 03/20/2016, the patient underwent placement of left antecubital brachial artery to cephalic vein AV fistula with exploration and dilatation of the left upper arm cephalic vein. He tolerated the procedure well. The patient also had a 24 hour urine collection. Crea clearance was 15 with over 5 g protein in 24 hours. The patient has nephrotic range proteinuria. He was eventually discharged to SNF. FINAL DIAGNOSES: 1. Dialysis catheter malfunction.Status post placement of left arteriovenous fistula. 2. End-stage renal disease, on hemodialysis. 3. Diabetes mellitus. 4. Old cerebrovascular accident. 5. Anemia of chronic disease. 6. Anemia of kidney disease. 7. Thrombocytopenia . 8. Bilateral hydronephrosis. 9. Urinary retention. 10. Nephrotic range proteinuria. 11. Diabetes mellitus out of control. Dolly Narvaez M.D. I have been assigned to dictate discharge summary on this account and I was not involved in the patient's management. Priscilla Arias N.P. DR: Rajwinder JOB#: [id number] CC: [facility]
--- NOTE | 2016-04-24 11:31 | Diagnostic Imaging Report ---
Indication: Thrombosed permacath Findings: After the indications, procedure, risks, complications, and alternatives of the procedure were explained, written informed consent was obtained. The neck was prepped with alcohol. All elements of maximal sterile barrier technique were followed including usage of a cap, mask, sterile gown, sterile gloves, hand hygiene and a large sterile sheet. The indwelling permacath was evaluated. Initially the ports were aspirated then flushed with saline. There was no resistance. Portogram was then performed with injection of each port utilizing digital subtraction. Again, there was no resistance. There was no identification of a fibrin sheath or filling defect within the port. Catheter tip appear to be in the right atrium. Findings discussed with Dr. Brandt. Impression: Right jugular permacath evaluated. By all measures, the catheter is functional. No abnormalities could be found.
--- NOTE | 2016-04-27 08:29 | Cardiology Report ---
APPROVED REPORT EKG Measurement Heart [id number] [place] 140P42 [id number] Normal sinus rhythm Inferior infarct, age undetermined Abnormal ECG
== END 2016-03-22 18:55 | DRG 264 ==
LOC: ENRESERV → ENRESERVTM → ENRESERVDT → EMR 12:10 → 4W 12:30 → EDBEDREQ 12:46
PROC: 03180ZD Bypass Left Brachial Artery to Upper Arm Vein, Open Approach (ICD-10-PCS; principal; 2016-03-20 12:00)
PROC: 5A1D00Z (ICD-10-PCS; principal; 2016-03-20 12:00)
DX: T82.41XA Breakdown (mechanical) of vascular dialysis catheter, initial encounter (principal); E11.65 Type 2 diabetes mellitus with hyperglycemia; D69.6 Thrombocytopenia, unspecified; N18.6 End stage renal disease; I69.354 Hemiplegia and hemiparesis following cerebral infarction affecting left non-dominant side; F03.90 Unspecified dementia, unspecified severity, without behavioral disturbance, psychotic disturbance, mood disturbance, and anxiety; N13.30 Unspecified hydronephrosis; Y83.8 Other surgical procedures as the cause of abnormal reaction of the patient, or of later complication, without mention of misadventure at the time of the procedure; I12.9 Hypertensive chronic kidney disease with stage 1 through stage 4 chronic kidney disease, or unspecified chronic kidney disease; N18.9 Chronic kidney disease, unspecified; Z99.2 Dependence on renal dialysis; D63.1 Anemia in chronic kidney disease; R33.9 Retention of urine, unspecified; G89.4 Chronic pain syndrome; K21.9 Gastro-esophageal reflux disease without esophagitis; E78.5 Hyperlipidemia, unspecified; Z22.39 Carrier of other specified bacterial diseases
CPT/HCPCS: 36415; 70450; 71010; 75827; 76775; 80048; 80053; 80061; 81050; 82550; 82553; 82575; 82962; 83036; 83735; 83880; 84100; 84156; 84484; 84550; 85025; 85610; 85730; 86140; 86850; 86900; 86901; 87040; 87081; 93005; 93306; 93922; 93930; 93970; 94003; 94150; J1815; S5561

== ENCOUNTER 2016-11-03 18:09 | Emergency (ER) | payer MEDICARE, OTHER ==
[~2016-11-03] VITALS: Ht 172.7 cm; Wt 72.6 kg
[~2016-11-03 18:09] MED LIST changes: +BENAZEPRIL HCL20 MG ORAL; +CLONIDINE HCL0.1 MG PO; +FINASTERIDE5 MG ORAL; +FLOMAX0.4 MG ORAL; +GEMFIBROZIL600 MG ORAL; +HEPARIN SO5000 UNIT2 SUBQ; +LEVEMIR FL100 UNIT/1 SUBQ; +NKM; +NORVASC2.5 MG ORAL; +NOVOLOG100 UNITS1 SUBQ
--- NOTE | 2016-11-03 18:33 | Emergency Room Report ---
History of Present Illness General Chief Complaint: General Complaint Source: Patient, Family Member Present Illness HPI 81YOM walk-in with ?malfunctioning HD port on left upper extremity since Sunday. Hasnt had HD in 5 days. Asymptomatic - no complaints. Had malfunctioning HD port in chest in February. Was admitted, [facility], ?TPA flush of port at the time PMD Is Dr Trammell. Allergies: Coded Allergies: No Known Allergies (Unverified , 05/25/13) Patient History Past Medical History: renal disease Past Surgical History: none Pertinent Family History: none Social History: Denies: smoking, alcohol use, drug use Immunizations: UTD Reviewed Nursing Documentation: PMH: Agreed, PSxH: Agreed Nursing Documentation-PMH Hx Cardiac Problems: Yes - high cholesterol Hx Hypertension: Yes Hx Diabetes: Yes Hx Cancer: No Hx Gastrointestinal Problems: No Hx Dialysis: Yes - M W F Hx Neurological Problems: Yes Hx Cerebrovascular Accident: Yes Review of Systems All Other Systems: negative except mentioned in HPI Physical Exam Vital Signs Date Time Temp Pulse Resp B/P (MAP) Pulse Ox O2 Delivery O2 Flow Rate FiO2 11/03/16 18:21 98.8 75 18 147/66 100 Room Air Sp02 EP Interpretation: reviewed, normal General Appearance: normal inspection, well appearing, no apparent distress, alert, GCS 15, non-toxic Head: normocephalic, atraumatic Eyes: bilateral eye PERRL, bilateral eye EOMI ENT: normal ENT inspection, hearing grossly normal, normal voice Neck: normal inspection, full range of motion, supple, no bony tend Respiratory: normal inspection, lungs clear, normal breath sounds, no respiratory distress, no retraction, no wheezing Cardiovascular #1: regular rate, rhythm, no edema Gastrointestinal: normal inspection, normal bowel sounds, non tender, soft, no guarding, no hernia Genitourinary: no CVA tenderness Musculoskeletal: other - left antecubital fossa: No palpable thrill. + pulse in fossa. No active bleeding. No infection Neurologic: normal inspection, alert, oriented x3, responsive, director of litigation III-XII nml as tested, motor strength/tone normal, speech normal Psychiatric: normal inspection, judgement/insight normal, mood/affect normal Skin: normal inspection, normal color, no rash Medical Decision Making Medicare Attestation I Trung Currie MD hereby attest that the medical record entry for date of service, 11/03/16 accurately reflects signatures/notations that I made in my capacity as MD when I treated/diagnosed the above listed Medicare beneficiary. I attest that this information is true, accurate and complete to the best of my knowledge. I understand that any falsification, omission, or concealment of material fact may subject me to administrative, civil, or criminal liability. This patient warrants hospital admission for extreme of age and has a condition that cannot be treated as outpatient. Diagnostic Impression: Primary Impression: Dialysis catheter clot or failure ER Course Labs: No leuks. H&H stable. No metabolic abnormalities. K normal CXR: No acute pulm edema, PNA, PTX Does not urgently require HD Spoke to Jennifer Monson who spoke to Dr García and Dr Brandt, patient's [employer] manager. All agree fistula could be re-vascularized and/or new permacath placed outpatient on Sunday They will call daughter to coordinate DC home EKG Diagnostic Results Rate: normal Rhythm: NSR ST Segments: no acute changes Rhythm Strip Diag. Results EP Interpretation: yes Rate: 71 Rhythm: NSR, no PVC's, no ectopy Chest X-Ray Diagnostic Results Chest X-Ray Diagnostic Results : Chest X-Ray Ordered: Yes # of Views/Limited/Complete: 1 View Indication: Other - pre-leena EP Interpretation: Yes Interpretation: no consolidation, no effusion, no pneumothorax, no acute cardiopulmonary disease Impression: Other - unchanged from Feb 2016 study Electronically Signed by: Dr Trung Currie MD Last Vital Signs Date Time Temp Pulse Resp B/P (MAP) Pulse Ox O2 Delivery O2 Flow Rate FiO2 11/03/16 18:21 98.8 75 18 147/66 100 Room Air Status: improved Disposition: HOME, SELF-CARE Condition: Stable TRUNG CURRIE M.D. Nov 03, 2016 18:33
[2016-11-03 18:48] VITALS: BP 133/65
[2016-11-03 19:10] LABS: BASOPHILS % (AUTO) 0.7 % (0.0-2.0); EOSINOPHILS % (AUTO) 6.9 % (0.0-3.0); LYMPHOCYTES % (AUTO) 36.2 % (20.0-45.0); MEAN CORPUSCULAR HEMOGLOBIN 32.5 PG (27.0-31.0); MEAN CORPUSCULAR HGB CONC 34.5 G/DL (32.0-36.0); MEAN CORPUSCULAR VOLUME 94 FL (80-99); MEAN PLATELET VOLUME 6.7 FL (6.5-10.1); MONOCYTES % (AUTO) 7.6 % (1.0-10.0); NEUTROPHILS % (AUTO) 48.6 % (45.0-75.0); PLATELET COUNT 281 K/UL (150-450); RED CELL DISTRIBUTION WIDTH 12.4 % (11.6-14.8); WHITE BLOOD COUNT 8.8 K/UL (4.8-10.8)
[2016-11-03 19:40] LABS: ALANINE AMINOTRANSFERASE 8 U/L (3-41); ANION GAP 12 (5-15); ASPARTATE AMINO TRANSFERASE 12 U/L (5-40); CALCIUM 9.1 mg/dL (8.6-10.2); CARBON DIOXIDE 24 mEQ/L (20-30); CHLORIDE 104 mEQ/L (98-107); CREATININE 4.2 mg/dL (0.7-1.2); HEMOLYSIS 3; POTASSIUM 4.2 mEQ/L (3.4-4.9); SODIUM 140 mEQ/L (135-145); TOTAL PROTEIN 7.3 g/dL (6.6-8.7)
[2016-11-03 19:50] LABS: CKMB 2.6 ng/mL (< 6.7)
[2016-11-03 20:15] VITALS: BP 166/84
[2016-11-03 21:13] VITALS: BP 166/84
--- NOTE | 2016-11-04 09:11 | Diagnostic Imaging Report ---
Indication: SOB Technique: XRAY CHEST 1 V Comparison: 03/15/2016. Findings: The patient has taken a poor inspiration. The cardiomediastinal silhouette is normal. The lungs are clear. There is no evidence of pleural fluid. The bony structures are unremarkable. Calcification is noted in the aorta. The right jugular permacath previously noted is no longer present. Impression: Poor inspiratory chest. Atherosclerotic change. Removal of the right jugular permacath. No acute abnormality.
--- NOTE | 2016-11-06 18:44 | Cardiology Report ---
APPROVED REPORT EKG Measurement Heart [id number] [place] 152P11 [id number] Sinus rhythm with premature atrial complexes in a pattern of bigeminy Cannot rule out Anterior infarct, age undetermined Abnormal ECG
== END 2016-11-03 20:20 | disposition home or self-care (01) ==
LOC: EDBEDREQ 18:30 → EMR 18:37 → EDBEDREQ 20:03 → CANBEDREQ 20:06 → EMR 20:20
DX: T82.41XA Breakdown (mechanical) of vascular dialysis catheter, initial encounter (principal); Y84.6 Urinary catheterization as the cause of abnormal reaction of the patient, or of later complication, without mention of misadventure at the time of the procedure; Y92.89 Other specified places as the place of occurrence of the external cause; E11.9 Type 2 diabetes mellitus without complications; I10 Essential (primary) hypertension; Z99.2 Dependence on renal dialysis
CPT/HCPCS: 36415; 71010; 80053; 82550; 82553; 83880; 85025; 93005; 99283

== ENCOUNTER 2017-04-06 16:47 | Emergency (ER) | payer MEDICARE, OTHER ==
[~2017-04-06] VITALS: Ht 162.6 cm; Wt 72.6 kg
[2017-04-06 18:29] LABS: BASOPHILS % (AUTO) 0.9 % (0.0-2.0); EOSINOPHILS % (AUTO) 6.2 % (0.0-3.0); HEMATOCRIT 37.4 % (42.0-52.0); LYMPHOCYTES % (AUTO) 26.5 % (20.0-45.0); MEAN CORPUSCULAR VOLUME 91 FL (80-99); MONOCYTES % (AUTO) 8.2 % (1.0-10.0); NEUTROPHILS % (AUTO) 58.2 % (45.0-75.0); PLATELET COUNT 222 K/UL (150-450); RED CELL DISTRIBUTION WIDTH 11.9 % (11.6-14.8); WHITE BLOOD COUNT 9.7 K/UL (4.8-10.8)
[2017-04-06 18:41] VITALS: BP 144/63
[2017-04-06 18:42] VITALS: BP 161/70
[2017-04-06 18:45] LABS: ANION GAP 4 mmol/L (5-15); BLOOD UREA NITROGEN 34 mg/dL (7-18); CALCIUM 8.4 MG/DL (8.5-10.1); CARBON DIOXIDE 33 MMOL/L (21-32); CHLORIDE 96 MMOL/L (98-107); CREATININE 4.7 MG/DL (0.55-1.30); POTASSIUM 3.3 MMOL/L (3.5-5.1); SODIUM 133 MMOL/L (136-145)
[2017-04-06 18:51] LABS: INR 0.9 (0.9-1.1)
[2017-04-06 18:58] LABS: ALANINE AMINOTRANSFERASE 15 U/L (12-78); ALBUMIN 2.9 G/DL (3.4-5.0); ALBUMIN/GLOBULIN RATIO 0.7 (1.0-2.7); ALKALINE PHOSPHATASE 100 U/L (46-116); ASPARTATE AMINO TRANSFERASE 14 U/L (15-37); BILIRUBIN,TOTAL 0.3 MG/DL (0.2-1.0); CKMB 1.2 NG/ML (0.0-3.6); CREATINE KINASE 67 U/L (26-308)
--- NOTE | 2017-04-06 23:34 | Emergency Room Report ---
History of Present Illness General Chief Complaint: General Complaint Source: Patient, Medical Record Present Illness HPI 81-year-old male presents ED for evaluation. Family bedside states that patient has a fistula on his left arm for dialysis. Went to dialysis today but states they cannot complete it because the catheter was blocked. He is here for evaluation. States he feels okay. Denies any pain. Denies any fevers or chills. Denies chest pain. No other aggravating relieving factors. Denies any other associated symptoms Allergies: Coded Allergies: No Known Allergies (Unverified , 05/25/13) Patient History Past Medical History: DM, HTN, CVA/TIA, renal disease, dialysis Past Surgical History: none Pertinent Family History: none Social History: Denies: smoking, alcohol use, drug use Immunizations: UTD Reviewed Nursing Documentation: PMH: Agreed, PSxH: Agreed Nursing Documentation-PMH Past Medical History: No History, Except For Hx Cardiac Problems: Yes - high cholesterol Hx Hypertension: Yes Hx Diabetes: Yes Hx Cancer: No Hx Gastrointestinal Problems: No Hx Dialysis: Yes - M W F Hx Neurological Problems: Yes Hx Cerebrovascular Accident: Yes Review of Systems All Other Systems: negative except mentioned in HPI Physical Exam Vital Signs Date Time Temp Pulse Resp B/P (MAP) Pulse Ox O2 Delivery O2 Flow Rate FiO2 04/06/17 17:05 98.1 82 18 144/63 98 Room Air Sp02 EP Interpretation: reviewed, normal General Appearance: no apparent distress, alert, GCS 15, non-toxic Head: normocephalic, atraumatic Eyes: bilateral eye normal inspection, bilateral eye PERRL ENT: hearing grossly normal, normal pharynx, no angioedema, normal voice Neck: full range of motion, supple/symm/no masses Respiratory: chest non-tender, lungs clear, normal breath sounds, speaking full sentences Cardiovascular #1: regular rate, rhythm, no edema Cardiovascular #2: 2+ carotid (R), 2+ carotid (L), 2+ radial (R), 2+ radial (L) , 2+ dorsalis pedis (R), 2+ dorsalis pedis (L) Gastrointestinal: normal bowel sounds, non tender, soft, non-distended, no guarding, no rebound Rectal: deferred Genitourinary: normal inspection, no CVA tenderness Musculoskeletal: back normal, gait/station normal, normal range of motion, non- tender Neurologic: alert, oriented x3, responsive, motor strength/tone normal, sensory intact, speech normal Psychiatric: judgement/insight normal, memory normal, mood/affect normal, no suicidal/homicidal ideation Reflexes: 3+ bicep (R), 3+ bicep (L), 3+ tricep (R), 3+ tricep (L), 3+ knee (R) , 3+ knee (L) Skin: normal color, no rash, warm/dry, well hydrated Lymphatic: no adenopathy Medical Decision Making Diagnostic Impression: Primary Impression: AMA Additional Impression: Dialysis catheter clot or failure ER Course 81-year-old male presents ED for clotting of dialysis catheter Differential-hyperkalemia, ACS, fluid overload Patient placed on stretcher. After initial history and physical I ordered labs , IV fluids, EKG, chest x-ray Labs show no elevated troponin, potassium within normal limits. Coags normal. Hemoglobin/hematocrit stable EKG shows no acute ischemic changes no evidence of hyperkalemia interpreted by me Chest x-ray shows cardiomegaly, otherwise unremarkable Patient was to be admitted for repair of dialysis catheter. Patient tells family he wants to be discharged will see his doctor as outpatient Understands the risks of leaving. Patient has competency to make his own decisions. Signed AMA form. Diagnosis-dialysis catheter clot or failure Patient leaves AMA Labs Test 04/06/17 18:17 White Blood Count 9.7 K/UL (4.8-10.8) Red Blood Count 4.10 M/UL (4.70-6.10) Hemoglobin 13.0 G/DL (14.2-18.0) Hematocrit 37.4 % (42.0-52.0) Mean Corpuscular Volume 91 FL (80-99) Mean Corpuscular Hemoglobin 31.7 PG (27.0-31.0) Mean Corpuscular Hemoglobin Concent 34.8 G/DL (32.0-36.0) Red Cell Distribution Width 11.9 % (11.6-14.8) Platelet Count 222 K/UL (150-450) Mean Platelet Volume 6.8 FL (6.5-10.1) Neutrophils (%) (Auto) 58.2 % (45.0-75.0) Lymphocytes (%) (Auto) 26.5 % (20.0-45.0) Monocytes (%) (Auto) 8.2 % (1.0-10.0) Eosinophils (%) (Auto) 6.2 % (0.0-3.0) Basophils (%) (Auto) 0.9 % (0.0-2.0) Prothrombin Time 9.4 SEC (9.30-11.50) Prothromb Time International Ratio 0.9 (0.9-1.1) Activated Partial Thromboplast Time 28 SEC (23-33) Sodium Level 133 MMOL/L (136-145) Potassium Level 3.3 MMOL/L (3.5-5.1) Chloride Level 96 MMOL/L (98-107) Carbon Dioxide Level 33 MMOL/L (21-32) Anion Gap 4 mmol/L (5-15) Blood Urea Nitrogen 34 mg/dL (7-18) Creatinine 4.7 MG/DL (0.55-1.30) Estimat Glomerular Filtration Rate mL/min (>60) Glucose Level 156 MG/DL (74-106) Calcium Level 8.4 MG/DL (8.5-10.1) Total Bilirubin 0.3 MG/DL (0.2-1.0) Aspartate Amino Transf (AST/SGOT) 14 U/L (15-37) Alanine Aminotransferase (ALT/SGPT) 15 U/L (12-78) Alkaline Phosphatase 100 U/L (46-116) Total Creatine Kinase 67 U/L (26-308) Creatine Kinase MB 1.2 NG/ML (0.0-3.6) Creatine Kinase MB Relative Index 1.7 Troponin I 0.000 ng/mL (0.000-0.056) Pro-B-Type Natriuretic Peptide 3978 pg/mL (0-125) Total Protein 6.9 G/DL (6.4-8.2) Albumin 2.9 G/DL (3.4-5.0) Globulin 4.0 g/dL Albumin/Globulin Ratio 0.7 (1.0-2.7) Last Vital Signs Date Time Temp Pulse Resp B/P (MAP) Pulse Ox O2 Delivery O2 Flow Rate FiO2 04/06/17 18:42 21 161/70 100 Room Air 04/06/17 18:41 98.1 04/06/17 17:05 82 Status: unchanged Disposition: AGAINST MEDICAL ADVICE Condition: Stable Referrals: SURAJ LOVELACE (PCP) STEVAN WONG M.D. Apr 06, 2017 23:34
--- NOTE | 2017-04-07 09:51 | Diagnostic Imaging Report ---
Indication: Cough Technique: XRAY Chest 1v Comparison: 11/03/2016 Findings: Low lung volumes. Heart size and mediastinal contours are stable. Heart size likely within normal limits. Atherosclerotic ossification is noted in the aortic arch. There is no definite focal airspace consolidation. No pleural effusion or pneumothorax. There are degenerative changes of the spine. No acute osseous abnormality seen. Left axillary stents noted. Impression: Limited exam with low lung volumes. No definite focal airspace consolidation, pleural effusion or pneumothorax.
--- NOTE | 2017-04-08 15:14 | Cardiology Report ---
APPROVED REPORT EKG Measurement Heart [id number] Normal sinus rhythm Inferior infarct, age undetermined Abnormal ECG
== END 2017-04-06 18:45 | disposition left against medical advice (07) ==
LOC: EMR 17:45
DX: T82.49XA Other complication of vascular dialysis catheter, initial encounter (principal); Y84.1 Kidney dialysis as the cause of abnormal reaction of the patient, or of later complication, without mention of misadventure at the time of the procedure; Y92.9 Unspecified place or not applicable; E11.9 Type 2 diabetes mellitus without complications; I10 Essential (primary) hypertension; Z86.73 Personal history of transient ischemic attack (TIA), and cerebral infarction without residual deficits
CPT/HCPCS: 36415; 71045; 80053; 82550; 82553; 83880; 84484; 85025; 85610; 85730; 86850; 86900; 86901; 93005; 99284

== ENCOUNTER 2018-02-01 12:07 | Inpatient (IN) | payer MEDICARE, OTHER ==
[~2018-02-01] VITALS: Ht 162.6 cm; Wt 68.4 kg
[2018-02-01 12:30] VITALS: BP 80/60
[2018-02-01 12:43] LABS: BASOPHILS % (AUTO) 0.4 % (0.0-2.0); EOSINOPHILS % (AUTO) 0.5 % (0.0-3.0); HEMATOCRIT 34.3 % (42.0-52.0); HEMOGLOBIN 11.5 G/DL (14.2-18.0); LYMPHOCYTES % (AUTO) 10.4 % (20.0-45.0); MEAN CORPUSCULAR VOLUME 94 FL (80-99); MONOCYTES % (AUTO) 9.6 % (1.0-10.0); NEUTROPHILS % (AUTO) 79.1 % (45.0-75.0); PLATELET COUNT 280 K/UL (150-450); RED BLOOD COUNT 3.66 M/UL (4.70-6.10); RED CELL DISTRIBUTION WIDTH 12.4 % (11.6-14.8); WHITE BLOOD COUNT 13.9 K/UL (4.8-10.8)
[2018-02-01] MEDS ORDERED: Sodium Chloride 500ML 500 ML IV ONE (12:45)
[2018-02-01 12:53] LABS: ANION GAP 12 mmol/L (5-15); BLOOD UREA NITROGEN 60 mg/dL (7-18); CALCIUM 8.3 MG/DL (8.5-10.1); CARBON DIOXIDE 26 MMOL/L (21-32); CHLORIDE 96 MMOL/L (98-107); CREATININE 7.7 MG/DL (0.55-1.30); POTASSIUM 3.9 MMOL/L (3.5-5.1); SODIUM 134 MMOL/L (136-145)
[2018-02-01] MEDS ORDERED: Vancomycin 1 GM in NS 275 ML IV ONE (13:00)
[2018-02-01] MEDS ORDERED: VITAMIN D10000 UNIT PO (13:23)
[2018-02-01 13:30] VITALS: BP 84/60
--- NOTE | 2018-02-01 14:02 | Diagnostic Imaging Report ---
Indication: Chest pain Technique: One view of the chest Comparison: 04/06/2017 Findings: Heart is upper limits normal in size. The lungs and pleural spaces are clear. The aorta is tortuous ectatic and calcified. A venous stent is again demonstrated in the left axilla. Findings are unchanged Impression: No acute process.
[2018-02-01 14:48] VITALS: BP 124/62
--- NOTE | 2018-02-01 15:15 | Emergency Room Report ---
History of Present Illness General Chief Complaint: Chest Pain Present Illness HPI Mr. Angelica Moore is an 82 yo male with hx of IDDM, HTN and ESRD on HD MWF who presents with chest pain, generalized weakness and near syncope since yesterday. Central moderately severe chest pain intermittent. Blood pressure noted to be low yesterday according to granddaughter bedside who is caregiver. No hx of cardiac dz. Too sick to have dialysis today. No fever. No abd pain. No cough. No dyspnea. Patient is finnish speaking. Patient communicated through family member. Allergies: Coded Allergies: No Known Allergies (Unverified , 05/25/13) Patient History Limited by: language barrier, age Past Medical History: see triage record, old chart reviewed Past Surgical History: other - reviewed per EMR Pertinent Family History: other - not pertinent to today's presentation Social History: Denies: smoking, drug use Reviewed Nursing Documentation: PMH: Agreed; PSxH: Agreed Nursing Documentation-PMH Past Medical History: No History, Except For Hx Cardiac Problems: Yes - high cholesterol Hx Hypertension: Yes Hx Diabetes: Yes Hx Cancer: No Hx Gastrointestinal Problems: No Hx Dialysis: Yes - M/W/F Hx Neurological Problems: Yes Hx Cerebrovascular Accident: Yes Review of Systems Constitutional: Reports: malaise Respiratory: Denies: shortness of breath Cardiovascular: Reports: chest pain Neurological: Denies: headache, numbness All Other Systems: negative except mentioned in HPI Physical Exam Vital Signs Date Time Temp Pulse Resp B/P (MAP) Pulse Ox O2 Delivery O2 Flow Rate FiO2 02/01/18 14:48 98.2 79 20 124/62 100 Room Air Sp02 EP Interpretation: reviewed, normal General Appearance: no apparent distress, alert, GCS 15, non-toxic Head: normocephalic, atraumatic Eyes: bilateral eye normal inspection ENT: hearing grossly normal, normal pharynx, no angioedema, normal voice Neck: full range of motion, supple/symm/no masses Respiratory: chest non-tender, lungs clear, normal breath sounds, speaking full sentences Cardiovascular #1: regular rate, rhythm, no edema, no gallop, no JVD, no murmur Gastrointestinal: normal bowel sounds, non tender, soft, non-distended, no guarding, no rebound Rectal: deferred Musculoskeletal: normal range of motion, non-tender, calf tenderness, other - AV access LUE +thrill + bruit Neurologic: alert, oriented x3, responsive, motor strength/tone normal, sensory intact, speech normal Psychiatric: judgement/insight normal, memory normal, depressed affect Reflexes: 3+ knee (L), 3+ ankle (R) Skin: normal color, no rash, warm/dry, well hydrated Lymphatic: no adenopathy Procedures Critical Care Time Critical Care Time 35 minutes of critical care time excluding procedures were used in the care of the patient. I reviewed labs and imaging. I reviewed previous electronic medical record. I updated family members. I spoke with multiple consultants. Patient required multiple reassessments and interventions. Medical Decision Making Diagnostic Impression: Primary Impression: ACS (acute coronary syndrome) Additional Impressions: Hypotension ESRD (end stage renal disease) ER Course Mr. Angelica Moore presents with chest pain and near syncope, generalized weakness. Concern for cardiac event. Upon arrival nurse informed me of hypotension which was persistent over 30+ minutes. He required small bolus 500 mL NS. BP did normalize. Due to hypotension and leukocytosis broad spectrum antibiotics were administered for possible sepsis. However, patient did not appear toxic as if bacteremic. Dr. Narvaez agreed to admit. I also consulted pt's personal welt stitcher Dr. Brandt. ASA ordered. Labs Test 02/01/18 12:27 White Blood Count 13.9 K/UL (4.8-10.8) Red Blood Count 3.66 M/UL (4.70-6.10) Hemoglobin 11.5 G/DL (14.2-18.0) Hematocrit 34.3 % (42.0-52.0) Mean Corpuscular Volume 94 FL (80-99) Mean Corpuscular Hemoglobin 31.4 PG (27.0-31.0) Mean Corpuscular Hemoglobin Concent 33.5 G/DL (32.0-36.0) Red Cell Distribution Width 12.4 % (11.6-14.8) Platelet Count 280 K/UL (150-450) Mean Platelet Volume 6.5 FL (6.5-10.1) Neutrophils (%) (Auto) 79.1 % (45.0-75.0) Lymphocytes (%) (Auto) 10.4 % (20.0-45.0) Monocytes (%) (Auto) 9.6 % (1.0-10.0) Eosinophils (%) (Auto) 0.5 % (0.0-3.0) Basophils (%) (Auto) 0.4 % (0.0-2.0) Sodium Level 134 MMOL/L (136-145) Potassium Level 3.9 MMOL/L (3.5-5.1) Chloride Level 96 MMOL/L (98-107) Carbon Dioxide Level 26 MMOL/L (21-32) Anion Gap 12 mmol/L (5-15) Blood Urea Nitrogen 60 mg/dL (7-18) Creatinine 7.7 MG/DL (0.55-1.30) Estimat Glomerular Filtration Rate mL/min (>60) Glucose Level 128 MG/DL (74-106) Calcium Level 8.3 MG/DL (8.5-10.1) Troponin I 0.022 ng/mL (0.000-0.056) Lab Results Impression normal potassium elevated wbc ,normal troponin level Chest X-Ray Diagnostic Results Chest X-Ray Diagnostic Results : Chest X-Ray Ordered: Yes # of Views/Limited/Complete: 1 View Indication: Chest Pain PA Xray: Interpretation reviewed Impression: No acute disease Last Vital Signs Date Time Temp Pulse Resp B/P (MAP) Pulse Ox O2 Delivery O2 Flow Rate FiO2 02/01/18 14:48 98.2 79 20 124/62 100 Room Air Referrals: NON PHYSICIAN (PCP) Hermelinda Harris MD Feb 01, 2018 15:15
[2018-02-01 15:40] VITALS: BP 144/68
[2018-02-01] MEDS: Cefepime HCl 1 GM in NS 55 ML IV SCH (15:50)
--- NOTE | 2018-02-01 16:11 | Consultation ---
Consult Note Consult Note asked to see for dialysis management Mr. Angelica Moore is an 82 yo male with hx of IDDM, HTN and ESRD on HD MWF who presents with chest pain, generalized weakness and near syncope since yesterday. Central moderately severe chest pain intermittent. Blood pressure noted to be low yesterday according to granddaughter bedside who is caregiver. No hx of cardiac dz. Too sick to have dialysis today. No fever. No abd pain. No cough. No dyspnea. Patient is ukrainian speaking. Patient communicated through family member. No Known Allergies (Unverified , 05/25/13) Limited by: language barrier, age Past Medical History: No History, Except For Hx Cardiac Problems: Yes - high cholesterol Hx Hypertension: Yes Hx Diabetes: Yes Hx Dialysis: Yes - M/W/F Hx Neurological Problems: Yes Hx Cerebrovascular Accident: Yes examined discussed with daughters Assessment/Plan ESRD ? Sepsis / UTI ACS HD 02/02 BP meds Antibiotics Mikey Brandt MD Feb 01, 2018 16:11
[2018-02-01 16:54] LABS: APPEARANCE,URINE TURBID; BILIRUBIN, URINE NEGATIVE (NEGATIVE); COLOR,URINE ORANGE; GLUCOSE, URINE (UA) NEGATIVE (NEGATIVE); KETONES,URINE 1+ (NEGATIVE); LEUKOCYTE ESTERASE ,URINE 3+ (NEGATIVE); NITRITE,URINE NEGATIVE (NEGATIVE); PH,URINE 6 (4.5-8.0); PROTEIN,URINE 4+ (NEGATIVE); UROBILINOGEN,URINE NORMAL MG/DL (0.0-1.0)
[2018-02-01] MEDS ORDERED: Nitroglycerin Patch 0.4mg TDERMAL SCH (17:00)
[2018-02-01 17:51] VITALS: BP 118/66
[2018-02-01 20:00] VITALS: BP 141/71
[2018-02-01] MEDS: Heparin 5000 units/ml inj SUBQ SCH ×2 (21:00→22:10)
[2018-02-01] MEDS: Tamsulosin 0.4mg cap ORAL SCH (22:07)
[2018-02-01] MEDS: NovoLOG Insulin Flexpen SUBQ SCH (22:09)
[2018-02-02] VITALS: BP 93/48
[2018-02-02] MEDS: Cefepime HCl 1 GM in NS 55 ML IV SCH (01:25)
--- NOTE | 2018-02-02 03:00 | History and Physical Report ---
DATE OF ADMISSION: 02/01/2018 HISTORY OF PRESENT ILLNESS: The patient is admitted for chest pain, acute, rule out acute coronary syndrome and hypertension, chronic episodes. The patient has end-stage renal disease, was on hemodialysis. The patient denies nausea, vomiting, or diarrhea. He has generalized weakness and presyncopal episode. Denies orthopnea. Denies shortness of breath. Denies cough. Denies fever or chills. PAST MEDICAL HISTORY: End-stage renal disease, on hemodialysis; history of CVA as well as BPH; hyperlipidemia; hypertension, chronic episodes; and IDDM. ALLERGIES: No known allergies. MEDICATIONS: Amlodipine, benazepril, vitamin D3, finasteride, gemfibrozil, insulin, Levemir, and Flomax. FAMILY HISTORY: Does have history of diabetes and hypertension. SOCIAL HISTORY: Denies history of alcohol or illicit drugs. REVIEW OF SYSTEMS: HEENT: Denies headaches. PULMONARY: Denies shortness of breath or productive cough. CARDIOVASCULAR: Denies any chest pain. GASTROINTESTINAL: Denies nausea, vomiting, or diarrhea. EXTREMITIES: Denies pain in lower extremities. CENTRAL NERVOUS SYSTEM: No change in vision or speech pattern. PHYSICAL EXAMINATION: VITAL SIGNS: Temperature 98.2 degrees, pulse is 79, and blood pressure 124/62. HEENT: PERRLA. NECK: Supple. No lymphadenopathy. CHEST: Clear to auscultation. GASTROINTESTINAL: Soft, nontender, and nondistended. No organomegaly. EXTREMITIES: No edema. Moves all four extremities. Sensation grossly intact. Reflexes equal in both sides. LABORATORY DATA: WBC of 13.9, hemoglobin 11.1, and platelets of 280,000. Sodium 134, potassium 3.9, BUN of 60, and creatinine 7.0. ASSESSMENT: 1. End-stage renal disease, on hemodialysis. 2. Chest pain, rule out acute coronary syndrome. 3. Hypertension has improved. PLAN: I have asked Dr. Alvarado and Dr. Brandt to see the patient for the above-mentioned diagnoses and treatment. Dolly Narvaez M.D. DR: ABBIE JOB#: [id number] CC:
[2018-02-02 04:00] VITALS: BP 99/51
[2018-02-02] MEDS: NovoLOG Insulin Flexpen SUBQ SCH ×4 (05:41→20:51)
[2018-02-02 07:21] LABS: BASOPHILS % (AUTO) 0.5 % (0.0-2.0); EOSINOPHILS % (AUTO) 0.9 % (0.0-3.0); HEMATOCRIT 28.4 % (42.0-52.0); HEMOGLOBIN 9.6 G/DL (14.2-18.0); LYMPHOCYTES % (AUTO) 11.7 % (20.0-45.0); MEAN CORPUSCULAR VOLUME 94 FL (80-99); NEUTROPHILS % (AUTO) 76.9 % (45.0-75.0); PLATELET COUNT 258 K/UL (150-450); RED BLOOD COUNT 3.03 M/UL (4.70-6.10); RED CELL DISTRIBUTION WIDTH 12.9 % (11.6-14.8); WHITE BLOOD COUNT 13.1 K/UL (4.8-10.8)
[2018-02-02 07:28] LABS: ALANINE AMINOTRANSFERASE 25 U/L (12-78); ALBUMIN 2.3 G/DL (3.4-5.0); ALBUMIN/GLOBULIN RATIO 0.5 (1.0-2.7); ALKALINE PHOSPHATASE 119 U/L (46-116); ANION GAP 14 mmol/L (5-15); ASPARTATE AMINO TRANSFERASE 23 U/L (15-37); BILIRUBIN,TOTAL 0.3 MG/DL (0.2-1.0); BLOOD UREA NITROGEN 71 mg/dL (7-18); CALCIUM 7.8 MG/DL (8.5-10.1); CARBON DIOXIDE 22 MMOL/L (21-32); CHLORIDE 97 MMOL/L (98-107); CHOLESTEROL 126 MG/DL (< 200); CREATININE 8.4 MG/DL (0.55-1.30); HDL CHOLESTEROL 18 MG/DL (40-60); PHOSPHORUS 4.4 MG/DL (2.5-4.9); POTASSIUM 4.2 MMOL/L (3.5-5.1); SODIUM 133 MMOL/L (136-145); TRIGLYCERIDES 211 MG/DL (30-150)
[2018-02-02 08:00] VITALS: BP 112/54
--- NOTE | 2018-02-02 09:53 | General Progress Note ---
Assessment/Plan Problem List: (1) Diabetes ICD Codes: E11.9 - Type 2 diabetes mellitus without complications SNOMED: 04902722 (2) Sepsis ICD Codes: A41.9 - Sepsis, unspecified organism SNOMED: 58682966 (3) CVA (cerebral vascular accident) ICD Codes: I63.9 - Cerebral infarction, unspecified SNOMED: 264200434 (4) UTI (lower urinary tract infection) ICD Codes: N39.0 - Urinary tract infection, site not specified SNOMED: 5285190 (5) ESRD (end stage renal disease) ICD Codes: N18.6 - End stage renal disease SNOMED: 66619096 (6) Hypotension ICD Codes: I95.9 - Hypotension, unspecified SNOMED: 68063067 (7) ACS (acute coronary syndrome) ICD Codes: I24.9 - Acute ischemic heart disease, unspecified SNOMED: 345296776 (8) Chest pain ICD Codes: R07.9 - Chest pain, unspecified SNOMED: 81298627 Status: unchanged Assessment/Plan hematurea/.consulted urology fever yesterday.consulted ID esrd on hd h/o cva uti hypotension improved abx per id Subjective ROS Limited/Unobtainable: Yes Allergies: Coded Allergies: No Known Allergies (Unverified , 05/25/13) Objective Last 24 Hour Vital Signs Date Time Temp Pulse Resp B/P (MAP) Pulse Ox O2 Delivery O2 Flow Rate FiO2 02/02/18 08:00 97.6 72 18 112/54 (73) 95 02/02/18 04:00 97.9 77 20 99/51 (67) 100 02/02/18 04:00 78 02/02/18 00:00 100.8 92 20 93/48 (63) 97 02/02/18 00:00 98 02/01/18 21:00 Room Air 02/01/18 20:00 98.6 99 20 141/71 (94) 97 02/01/18 20:00 97 02/01/18 18:28 Room Air 02/01/18 18:17 118/66 02/01/18 17:51 98.2 82 21 118/66 (83) 100 02/01/18 16:50 98.0 82 16 122/68 100 Room Air 02/01/18 15:40 98.2 78 18 144/68 100 Room Air 02/01/18 14:48 98.2 79 20 124/62 100 Room Air 02/01/18 13:30 97.8 88 16 84/60 100 Room Air 02/01/18 12:30 97.8 80 16 80/60 100 Room Air 02/01/18 12:20 80 16 Room Air Intake and Output 02/01/18 02/02/18 19:00 07:00 Intake Total 480 ml Output Total 0 ml Balance 0 ml 480 ml Intake Oral 480 ml Output Urine Total 0 ml # Voids 2 # Bowel Movements 1 Laboratory Tests 02/01/18 12:27: White Blood Count 13.9H, Red Blood Count 3.66L, Hemoglobin 11.5L, Hematocrit 34.3L, Mean Corpuscular Volume 94, Mean Corpuscular Hemoglobin 31.4H, Mean Corpuscular Hemoglobin Concent 33.5, Red Cell Distribution Width 12.4, Platelet Count 280, Mean Platelet Volume 6.5, Neutrophils (%) (Auto) 79.1H, Lymphocytes ( %) (Auto) 10.4L, Monocytes (%) (Auto) 9.6, Eosinophils (%) (Auto) 0.5, Basophils (%) (Auto) 0.4, Sodium Level 134L, Potassium Level 3.9, Chloride Level 96L, Carbon Dioxide Level 26, Anion Gap 12, Blood Urea Nitrogen 60H, Creatinine 7.7H, Estimat Glomerular Filtration Rate , Glucose Level 128H, Calcium Level 8.3L, Troponin I 0.022, C-Reactive Protein, Quantitative 27.6H 02/01/18 15:35: Urine Color [place], Urine Appearance Turbid, Urine pH 6, Urine Specific [place] 1.015, Urine Protein 4+H, Urine Glucose (UA) Negative, Urine Ketones 1+H, Urine Blood 5+H, Urine Nitrite Negative, Urine Bilirubin Negative, Urine Urobilinogen Normal, Urine Leukocyte Esterase 3+H, Urine RBC TntcH, Urine WBC TntcH, Urine Squamous Epithelial Cells None, Urine Bacteria ManyH, Lactic Acid Level 1.30 02/02/18 05:10: White Blood Count 13.1H, Red Blood Count 3.03L, Hemoglobin 9.6L, Hematocrit 28.4L, Mean Corpuscular Volume 94, Mean Corpuscular Hemoglobin 31.7H, Mean Corpuscular Hemoglobin Concent 33.8, Red Cell Distribution Width 12.9, Platelet Count 258, Mean Platelet Volume 6.3L, Neutrophils (%) (Auto) 76.9H, Lymphocytes (%) (Auto) 11.7L, Monocytes (%) (Auto) 10.0, Eosinophils (%) (Auto) 0.9, Basophils (%) (Auto) 0.5, Sodium Level 133L, Potassium Level 4.2, Chloride Level 97L, Carbon Dioxide Level 22, Anion Gap 14, Blood Urea Nitrogen 71H, Creatinine 8.4H, Estimat Glomerular Filtration Rate , Glucose Level 131H, Calcium Level 7.8L, Troponin I 0.018, Hemoglobin A1c 6.6H, Uric Acid 8.0H, Phosphorus Level 4.4, Magnesium Level 1.8, Total Bilirubin 0.3, Aspartate Amino Transf (AST/SGOT) 23, Alanine Aminotransferase (ALT/SGPT) 25, Alkaline Phosphatase 119H, Pro-B-Type Natriuretic Peptide 15313S, Total Protein 6.9, Albumin 2.3L, Globulin 4.6, Albumin/Globulin Ratio 0.5L, Triglycerides Level 211H, Cholesterol Level 126, LDL Cholesterol 80, HDL Cholesterol 18L, Cholesterol/HDL Ratio 7.0H, Thyroid Stimulating Hormone (TSH) 2.047 Height (Feet): 5 Height (Inches): 4.00 Weight (Pounds): 155 General Appearance: alert Neck: supple Cardiovascular: normal rate Respiratory/Chest: lungs clear Abdomen: soft Dolly Narvaez MD Feb 02, 2018 09:53
[2018-02-02] MEDS: Benazepril 10mg tab ORAL SCH (10:05)
[2018-02-02] MEDS: Heparin 5000 units/ml inj SUBQ SCH ×2 (10:05→20:39)
--- NOTE | 2018-02-02 10:07 | Nephrology Progress Note ---
Assessment/Plan Problem List: (1) ESRD (end stage renal disease) (2) Hypotension (3) UTI (lower urinary tract infection) (4) Diabetes Assessment has chills and sob Plan HD today + uf Antibiotics keep bp in check Subjective ROS Limited/Unobtainable: No Constitutional: Reports: malaise Objective Objective Last 24 Hour Vital Signs Date Time Temp Pulse Resp B/P (MAP) Pulse Ox O2 Delivery O2 Flow Rate FiO2 02/02/18 08:00 97.6 72 18 112/54 (73) 95 02/02/18 04:00 97.9 77 20 99/51 (67) 100 02/02/18 04:00 78 02/02/18 00:00 100.8 92 20 93/48 (63) 97 02/02/18 00:00 98 02/01/18 21:00 Room Air 02/01/18 20:00 98.6 99 20 141/71 (94) 97 02/01/18 20:00 97 02/01/18 18:28 Room Air 02/01/18 18:17 118/66 02/01/18 17:51 98.2 82 21 118/66 (83) 100 02/01/18 16:50 98.0 82 16 122/68 100 Room Air 02/01/18 15:40 98.2 78 18 144/68 100 Room Air 02/01/18 14:48 98.2 79 20 124/62 100 Room Air 02/01/18 13:30 97.8 88 16 84/60 100 Room Air 02/01/18 12:30 97.8 80 16 80/60 100 Room Air 02/01/18 12:20 80 16 Room Air Intake and Output 02/01/18 02/02/18 19:00 07:00 Intake Total 480 ml Output Total 0 ml Balance 0 ml 480 ml Intake Oral 480 ml Output Urine Total 0 ml # Voids 2 # Bowel Movements 1 Laboratory Tests 02/01/18 12:27: White Blood Count 13.9H, Red Blood Count 3.66L, Hemoglobin 11.5L, Hematocrit 34.3L, Mean Corpuscular Volume 94, Mean Corpuscular Hemoglobin 31.4H, Mean Corpuscular Hemoglobin Concent 33.5, Red Cell Distribution Width 12.4, Platelet Count 280, Mean Platelet Volume 6.5, Neutrophils (%) (Auto) 79.1H, Lymphocytes ( %) (Auto) 10.4L, Monocytes (%) (Auto) 9.6, Eosinophils (%) (Auto) 0.5, Basophils (%) (Auto) 0.4, Sodium Level 134L, Potassium Level 3.9, Chloride Level 96L, Carbon Dioxide Level 26, Anion Gap 12, Blood Urea Nitrogen 60H, Creatinine 7.7H, Estimat Glomerular Filtration Rate , Glucose Level 128H, Calcium Level 8.3L, Troponin I 0.022, C-Reactive Protein, Quantitative 27.6H 02/01/18 15:35: Urine Color [place], Urine Appearance Turbid, Urine pH 6, Urine Specific [place] 1.015, Urine Protein 4+H, Urine Glucose (UA) Negative, Urine Ketones 1+H, Urine Blood 5+H, Urine Nitrite Negative, Urine Bilirubin Negative, Urine Urobilinogen Normal, Urine Leukocyte Esterase 3+H, Urine RBC TntcH, Urine WBC TntcH, Urine Squamous Epithelial Cells None, Urine Bacteria ManyH, Lactic Acid Level 1.30 02/02/18 05:10: White Blood Count 13.1H, Red Blood Count 3.03L, Hemoglobin 9.6L, Hematocrit 28.4L, Mean Corpuscular Volume 94, Mean Corpuscular Hemoglobin 31.7H, Mean Corpuscular Hemoglobin Concent 33.8, Red Cell Distribution Width 12.9, Platelet Count 258, Mean Platelet Volume 6.3L, Neutrophils (%) (Auto) 76.9H, Lymphocytes (%) (Auto) 11.7L, Monocytes (%) (Auto) 10.0, Eosinophils (%) (Auto) 0.9, Basophils (%) (Auto) 0.5, Sodium Level 133L, Potassium Level 4.2, Chloride Level 97L, Carbon Dioxide Level 22, Anion Gap 14, Blood Urea Nitrogen 71H, Creatinine 8.4H, Estimat Glomerular Filtration Rate , Glucose Level 131H, Calcium Level 7.8L, Troponin I 0.018, Hemoglobin A1c 6.6H, Uric Acid 8.0H, Phosphorus Level 4.4, Magnesium Level 1.8, Total Bilirubin 0.3, Aspartate Amino Transf (AST/SGOT) 23, Alanine Aminotransferase (ALT/SGPT) 25, Alkaline Phosphatase 119H, Pro-B-Type Natriuretic Peptide 61172J, Total Protein 6.9, Albumin 2.3L, Globulin 4.6, Albumin/Globulin Ratio 0.5L, Triglycerides Level 211H, Cholesterol Level 126, LDL Cholesterol 80, HDL Cholesterol 18L, Cholesterol/HDL Ratio 7.0H, Thyroid Stimulating Hormone (TSH) 2.047 Height (Feet): 5 Height (Inches): 4.00 Weight (Pounds): 155 General Appearance: no apparent distress, lethargic Respiratory/Chest: decreased breath sounds Abdomen: soft Mikey Brandt MD Feb 02, 2018 10:07
[2018-02-02 10:35] LABS: FERRITIN 1839 NG/ML (8-388)
[2018-02-02 10:49] LABS: % IRON SATURATION 14 % (15-50); IRON 17 ug/dL (50-175); TOTAL IRON BINDING CAPACITY 121 ug/dL (250-450)
[2018-02-02] MEDS: Piperacillin/Tazobactam 2.25 GM in D5W 55 ML IVPB SCH ×2 (11:54→18:23)
[2018-02-02 12:00] VITALS: BP 111/88
[2018-02-02 16:00] VITALS: BP 106/56
[2018-02-02 20:00] VITALS: BP 103/53
[2018-02-02] MEDS: Tamsulosin 0.4mg cap ORAL SCH (20:51)
--- NOTE | 2018-02-02 22:14 | Consultation ---
DATE OF CONSULTATION: 02/02/2018 INFECTIOUS DISEASE CONSULTATION CONSULTING PHYSICIAN: Boyd Tee M.D. PRIMARY ATTENDING PHYSICIAN: Dolly Narvaez M.D. REASON FOR CONSULTATION: Gram-negative sepsis, UTI. HISTORY OF PRESENT ILLNESS: This is an 82-year-old male admitted yesterday because of generalized weakness, near syncope, chest pain with impression of acute coronary artery disease. 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 According to family, he has also hematuria. PAST MEDICAL HISTORY: Significant for diabetes mellitus, hypertension, end-stage renal disease, on hemodialysis. Could not do dialysis yesterday because of hypotension, weakness, and anemia. ALLERGIES: No known drug allergies. MEDICATIONS: Aspirin, Protonix, Levaquin x1, Zosyn, benazepril, finasteride, Flomax, insulin, gemfibrozil, Tylenol. Got a dose of vancomycin and cefepime also in the ER. SOCIAL HISTORY: Originally from [place]. Single. No history of alcohol, drug abuse, or smoking. Lives with family. REVIEW OF SYSTEMS: The patient does not have any complaint right now. PHYSICAL EXAMINATION: VITAL SIGNS: Temperature 98.7, pulse 106, blood pressure 111/88. T-max is 100.8. GENERAL APPEARANCE: Well developed, in no acute distress. HEAD AND NECK: [place] conjunctivae. HEART: Tachycardic. LUNGS: Clear. ABDOMEN: Soft, nontender. EXTREMITIES: He has no edema. He has AV shunt in the left upper extremity. No external sign of infection. NEUROLOGIC: Awake, alert, somewhat slow to respond. LABORATORY AND DIAGNOSTIC DATA: Blood culture x2, gram-negative rods. Urine culture, gram-negative rods. WBC 13.1, hemoglobin 9.6, hematocrit 28.4, platelets 258,000. Sodium 136, potassium 4.2, chloride 97, bicarbonate 22, BUN 71, creatinine 8.4. BNP was elevated to 16,553. Albumin 0.3. UA showed rbc's too numerous to count, wbc too numerous to count. Chest x-ray showed no acute process. IMPRESSION: Gram-negative sepsis, likely secondary to UTI, ascites secondary to hemodialysis line infection. The patient has also gram-negative UTI, end-stage renal disease, on hemodialysis, hematuria, BPH, diabetes mellitus.. RECOMMENDATION: We will continue with Zosyn. We will follow up the culture. We will repeat culture during hemodialysis in 24 hours. At the end of my exam, I thank Dr. Narvaez for involving me in the care of this patient. Boyd Tee M.D. DR: Milli JOB#: [id number] CC: [facility]
--- NOTE | 2018-02-02 22:17 | Cardiology Progress Note ---
Assessment/Plan Assessment/Plan The patient is seen and examined, full consult note is dictated. Objective Last 24 Hour Vital Signs Date Time Temp Pulse Resp B/P (MAP) Pulse Ox O2 Delivery O2 Flow Rate FiO2 02/02/18 20:00 97.9 74 20 103/53 (70) 99 02/02/18 16:00 97.2 77 19 106/56 (73) 99 02/02/18 16:00 74 02/02/18 12:00 98.7 106 21 111/88 (96) 97 02/02/18 11:48 91 02/02/18 10:05 112/54 02/02/18 08:30 Room Air 02/02/18 08:00 97.6 72 18 112/54 (73) 95 02/02/18 07:58 72 02/02/18 04:00 97.9 77 20 99/51 (67) 100 02/02/18 04:00 78 02/02/18 00:00 100.8 92 20 93/48 (63) 97 02/02/18 00:00 98 Intake and Output 02/01/18 02/02/18 19:00 07:00 Intake Total 480 ml Output Total 0 ml Balance 0 ml 480 ml Intake Oral 480 ml Output Urine Total 0 ml # Voids 2 # Bowel Movements 1 Laboratory Tests Test 02/02/18 05:10 White Blood Count 13.1 K/UL (4.8-10.8) H Red Blood Count 3.03 M/UL (4.70-6.10) L Hemoglobin 9.6 G/DL (14.2-18.0) L Hematocrit 28.4 % (42.0-52.0) L Mean Corpuscular Volume 94 FL (80-99) Mean Corpuscular Hemoglobin 31.7 PG (27.0-31.0) H Mean Corpuscular Hemoglobin Concent 33.8 G/DL (32.0-36.0) Red Cell Distribution Width 12.9 % (11.6-14.8) Platelet Count 258 K/UL (150-450) Mean Platelet Volume 6.3 FL (6.5-10.1) L Neutrophils (%) (Auto) 76.9 % (45.0-75.0) H Lymphocytes (%) (Auto) 11.7 % (20.0-45.0) L Monocytes (%) (Auto) 10.0 % (1.0-10.0) Eosinophils (%) (Auto) 0.9 % (0.0-3.0) Basophils (%) (Auto) 0.5 % (0.0-2.0) Sodium Level 133 MMOL/L (136-145) L Potassium Level 4.2 MMOL/L (3.5-5.1) Chloride Level 97 MMOL/L (98-107) L Carbon Dioxide Level 22 MMOL/L (21-32) Anion Gap 14 mmol/L (5-15) Blood Urea Nitrogen 71 mg/dL (7-18) H Creatinine 8.4 MG/DL (0.55-1.30) H Estimat Glomerular Filtration Rate mL/min (>60) Glucose Level 131 MG/DL (74-106) H Hemoglobin A1c 6.6 % (4.3-6.0) H Uric Acid 8.0 MG/DL (2.6-7.2) H Calcium Level 7.8 MG/DL (8.5-10.1) L Phosphorus Level 4.4 MG/DL (2.5-4.9) Magnesium Level 1.8 MG/DL (1.8-2.4) Iron Level 17 ug/dL (50-175) L Total Iron Binding Capacity 121 ug/dL (250-450) L Percent Iron Saturation 14 % (15-50) L Unsaturated Iron Binding 104 ug/dL (112-346) L Ferritin 1839 NG/ML (8-388) H Total Bilirubin 0.3 MG/DL (0.2-1.0) Aspartate Amino Transf (AST/SGOT) 23 U/L (15-37) Alanine Aminotransferase (ALT/SGPT) 25 U/L (12-78) Alkaline Phosphatase 119 U/L (46-116) H Troponin I 0.018 ng/mL (0.000-0.056) C-Reactive Protein, Quantitative 27.0 mg/dL (0.00-0.90) H Pro-B-Type Natriuretic Peptide 94947 pg/mL (0-125) H Total Protein 6.9 G/DL (6.4-8.2) Albumin 2.3 G/DL (3.4-5.0) L Globulin 4.6 g/dL Albumin/Globulin Ratio 0.5 (1.0-2.7) L Triglycerides Level 211 MG/DL (30-150) H Cholesterol Level 126 MG/DL (< 200) LDL Cholesterol 80 mg/dL (<100) HDL Cholesterol 18 MG/DL (40-60) L Cholesterol/HDL Ratio 7.0 (3.3-4.4) H Vitamin B12 Level 430 PG/ML (193-986) Folate 5.1 NG/ML (8.6-58.9) L Thyroid Stimulating Hormone (TSH) 2.047 uiU/mL (0.358-3.740) Random Vancomycin Level 10.8 ug/mL Microbiology Date/Time Source Procedure Growth Status 02/01/18 15:35 Blood Blood Culture - Preliminary Gram Negative [place] Resulted 02/01/18 15:35 Blood Blood Culture - Preliminary Gram Negative [place] Resulted 02/01/18 15:35 Urine,Clean Catch Urine Culture - Preliminary Gram Negative [place] Resulted Dariel Alvarado MD Feb 02, 2018 22:17
[2018-02-03] VITALS: BP 111/56
[2018-02-03] MEDS: Piperacillin/Tazobactam 2.25 GM in D5W 55 ML IVPB SCH ×3 (03:07→17:48)
[2018-02-03 04:00] VITALS: BP 132/75
[2018-02-03 06:08] LABS: BASOPHILS % (AUTO) 0.4 % (0.0-2.0); EOSINOPHILS % (AUTO) 2.2 % (0.0-3.0); HEMATOCRIT 27.6 % (42.0-52.0); HEMOGLOBIN 9.3 G/DL (14.2-18.0); MEAN CORPUSCULAR VOLUME 94 FL (80-99); MONOCYTES % (AUTO) 11.5 % (1.0-10.0); NEUTROPHILS % (AUTO) 74.9 % (45.0-75.0); PLATELET COUNT 282 K/UL (150-450); RED BLOOD COUNT 2.95 M/UL (4.70-6.10); RED CELL DISTRIBUTION WIDTH 12.8 % (11.6-14.8); WHITE BLOOD COUNT 12.2 K/UL (4.8-10.8)
[2018-02-03] MEDS: NovoLOG Insulin Flexpen SUBQ SCH ×4 (06:11→20:43)
[2018-02-03 06:29] LABS: ALANINE AMINOTRANSFERASE 20 U/L (12-78); ALBUMIN 2.3 G/DL (3.4-5.0); ALBUMIN/GLOBULIN RATIO 0.5 (1.0-2.7); ALKALINE PHOSPHATASE 106 U/L (46-116); ANION GAP 14 mmol/L (5-15); ASPARTATE AMINO TRANSFERASE 17 U/L (15-37); BILIRUBIN,TOTAL 0.3 MG/DL (0.2-1.0); BLOOD UREA NITROGEN 81 mg/dL (7-18); CALCIUM 8.1 MG/DL (8.5-10.1); CARBON DIOXIDE 21 MMOL/L (21-32); CHLORIDE 96 MMOL/L (98-107); CREATININE 9.3 MG/DL (0.55-1.30); PHOSPHORUS 4.8 MG/DL (2.5-4.9); POTASSIUM 4.5 MMOL/L (3.5-5.1); SODIUM 131 MMOL/L (136-145)
[2018-02-03 08:00] VITALS: BP 133/79
[2018-02-03] MEDS: Aspirin Baby 81mg ORAL SCH (09:00)
[2018-02-03] MEDS: Heparin 5000 units/ml inj SUBQ SCH ×2 (09:00→20:45)
[2018-02-03] MEDS: Benazepril 10mg tab ORAL SCH (09:02)
--- NOTE | 2018-02-03 09:42 | Nephrology Progress Note ---
Assessment/Plan Problem List: (1) Gram-negative bacteremia (2) ESRD (end stage renal disease) (3) Hypotension (4) UTI (lower urinary tract infection) (5) Diabetes Assessment has chills and sob Plan HD today + uf, not done yesterday - try today Antibiotics keep bp in check Zosyn Subjective ROS Limited/Unobtainable: No Constitutional: Reports: malaise Objective Objective Last 24 Hour Vital Signs Date Time Temp Pulse Resp B/P (MAP) Pulse Ox O2 Delivery O2 Flow Rate FiO2 02/03/18 09:02 133/79 02/03/18 08:00 97.8 79 20 133/79 (97) 98 02/03/18 04:00 98.0 85 20 132/75 (94) 100 02/03/18 04:00 78 02/03/18 00:00 97.6 78 20 111/56 (74) 100 02/03/18 00:00 78 02/02/18 23:00 97.9 02/02/18 21:00 Room Air 02/02/18 20:00 76 02/02/18 20:00 97.9 74 20 103/53 (70) 99 02/02/18 16:00 97.2 77 19 106/56 (73) 99 02/02/18 16:00 74 02/02/18 12:00 98.7 106 21 111/88 (96) 97 02/02/18 11:48 91 02/02/18 10:05 112/54 Intake and Output 02/02/18 02/03/18 19:00 07:00 Intake Total 840 ml Output Total 100 ml Balance 840 ml -100 ml Intake Oral 840 ml Output Urine Total 100 ml # Voids 2 # Bowel Movements 2 Laboratory Tests 02/02/18 22:55: Troponin I 0.021 02/03/18 05:35: Troponin I 0.004, White Blood Count 12.2H, Red Blood Count 2.95L, Hemoglobin 9.3L, Hematocrit 27.6L, Mean Corpuscular Volume 94, Mean Corpuscular Hemoglobin 31.7H, Mean Corpuscular Hemoglobin Concent 33.8, Red Cell Distribution Width 12.8, Platelet Count 282, Mean Platelet Volume 5.9L, Neutrophils (%) (Auto) 74.9 , Lymphocytes (%) (Auto) 11.0L, Monocytes (%) (Auto) 11.5H, Eosinophils (%) ( Auto) 2.2, Basophils (%) (Auto) 0.4, Sodium Level 131L, Potassium Level 4.5, Chloride Level 96L, Carbon Dioxide Level 21, Anion Gap 14, Blood Urea Nitrogen 81H, Creatinine 9.3H, Estimat Glomerular Filtration Rate , Glucose Level 109H, Uric Acid 8.9H, Calcium Level 8.1L, Phosphorus Level 4.8, Magnesium Level 1.9, Total Bilirubin 0.3, Aspartate Amino Transf (AST/SGOT) 17, Alanine Aminotransferase (ALT/SGPT) 20, Alkaline Phosphatase 106, Total Protein 7.1, Albumin 2.3L, Globulin 4.8, Albumin/Globulin Ratio 0.5L Height (Feet): 5 Height (Inches): 4.00 Weight (Pounds): 164 General Appearance: no apparent distress Cardiovascular: normal rate Respiratory/Chest: lungs clear Abdomen: soft Mikey Brandt MD Feb 03, 2018 09:41
[2018-02-03 12:00] VITALS: BP 130/73
--- NOTE | 2018-02-03 12:54 | General Progress Note ---
Assessment/Plan Problem List: (1) Diabetes ICD Codes: E11.9 - Type 2 diabetes mellitus without complications SNOMED: 35978093 (2) Sepsis ICD Codes: A41.9 - Sepsis, unspecified organism SNOMED: 70766516 (3) CVA (cerebral vascular accident) ICD Codes: I63.9 - Cerebral infarction, unspecified SNOMED: 780219882 (4) UTI (lower urinary tract infection) ICD Codes: N39.0 - Urinary tract infection, site not specified SNOMED: 7407615 (5) ESRD (end stage renal disease) ICD Codes: N18.6 - End stage renal disease SNOMED: 44087449 (6) Hypotension ICD Codes: I95.9 - Hypotension, unspecified SNOMED: 57586744 (7) ACS (acute coronary syndrome) ICD Codes: I24.9 - Acute ischemic heart disease, unspecified SNOMED: 431935063 (8) Chest pain ICD Codes: R07.9 - Chest pain, unspecified SNOMED: 95623720 Status: progressing Assessment/Plan hematurea improved no fever today esrd on hd h/o cva uti hypotension improved no cp Subjective ROS Limited/Unobtainable: Yes Allergies: Coded Allergies: No Known Allergies (Unverified , 05/25/13) Objective Last 24 Hour Vital Signs Date Time Temp Pulse Resp B/P (MAP) Pulse Ox O2 Delivery O2 Flow Rate FiO2 02/03/18 12:00 97.6 81 20 130/73 (92) 98 02/03/18 09:02 133/79 02/03/18 08:30 Room Air 02/03/18 08:00 97.8 79 20 133/79 (97) 98 02/03/18 07:49 78 02/03/18 04:00 98.0 85 20 132/75 (94) 100 02/03/18 04:00 78 02/03/18 00:00 97.6 78 20 111/56 (74) 100 02/03/18 00:00 78 02/02/18 23:00 97.9 02/02/18 21:00 Room Air 02/02/18 20:00 76 02/02/18 20:00 97.9 74 20 103/53 (70) 99 02/02/18 16:00 97.2 77 19 106/56 (73) 99 02/02/18 16:00 74 Intake and Output 12/8/18 12/9/18 19:00 07:00 Intake Total 840 ml Output Total 100 ml Balance 840 ml -100 ml Intake Oral 840 ml Output Urine Total 100 ml # Voids 2 # Bowel Movements 2 Laboratory Tests 02/02/18 22:55: Troponin I 0.021 02/03/18 05:35: Troponin I 0.004, White Blood Count 12.2H, Red Blood Count 2.95L, Hemoglobin 9.3L, Hematocrit 27.6L, Mean Corpuscular Volume 94, Mean Corpuscular Hemoglobin 31.7H, Mean Corpuscular Hemoglobin Concent 33.8, Red Cell Distribution Width 12.8, Platelet Count 282, Mean Platelet Volume 5.9L, Neutrophils (%) (Auto) 74.9 , Lymphocytes (%) (Auto) 11.0L, Monocytes (%) (Auto) 11.5H, Eosinophils (%) ( Auto) 2.2, Basophils (%) (Auto) 0.4, Sodium Level 131L, Potassium Level 4.5, Chloride Level 96L, Carbon Dioxide Level 21, Anion Gap 14, Blood Urea Nitrogen 81H, Creatinine 9.3H, Estimat Glomerular Filtration Rate , Glucose Level 109H, Uric Acid 8.9H, Calcium Level 8.1L, Phosphorus Level 4.8, Magnesium Level 1.9, Total Bilirubin 0.3, Aspartate Amino Transf (AST/SGOT) 17, Alanine Aminotransferase (ALT/SGPT) 20, Alkaline Phosphatase 106, Total Protein 7.1, Albumin 2.3L, Globulin 4.8, Albumin/Globulin Ratio 0.5L Height (Feet): 5 Height (Inches): 4.00 Weight (Pounds): 155 Neck: supple Cardiovascular: normal rate Respiratory/Chest: lungs clear Abdomen: soft Dolly Narvaez MD Feb 03, 2018 12:54
[2018-02-03] MEDS ORDERED: Vancomycin 1gm/D5W 275ml IVPB SCH ×2 (13:00)
[2018-02-03 16:00] VITALS: BP 146/75
[2018-02-03 20:00] VITALS: BP 140/70
[2018-02-03] MEDS: Tamsulosin 0.4mg cap ORAL SCH (20:41)
[2018-02-04] VITALS (22 sets, daily range): BP systolic 123–181; BP diastolic 53–79
[2018-02-04] MEDS: Piperacillin/Tazobactam 2.25 GM in D5W 55 ML IVPB SCH (03:43)
[2018-02-04 06:04] LABS: BASOPHILS % (AUTO) 0.7 % (0.0-2.0); EOSINOPHILS % (AUTO) 3.3 % (0.0-3.0); HEMATOCRIT 29.5 % (42.0-52.0); HEMOGLOBIN 9.8 G/DL (14.2-18.0); LYMPHOCYTES % (AUTO) 13.3 % (20.0-45.0); MEAN CORPUSCULAR VOLUME 93 FL (80-99); MONOCYTES % (AUTO) 10.7 % (1.0-10.0); PLATELET COUNT 309 K/UL (150-450); RED BLOOD COUNT 3.17 M/UL (4.70-6.10); RED CELL DISTRIBUTION WIDTH 12.6 % (11.6-14.8); WHITE BLOOD COUNT 9.8 K/UL (4.8-10.8)
[2018-02-04] MEDS: NovoLOG Insulin Flexpen SUBQ SCH ×4 (06:30→21:53)
[2018-02-04 06:32] LABS: ALANINE AMINOTRANSFERASE 18 U/L (12-78); ALBUMIN 2.2 G/DL (3.4-5.0); ALBUMIN/GLOBULIN RATIO 0.4 (1.0-2.7); ALKALINE PHOSPHATASE 96 U/L (46-116); ANION GAP 15 mmol/L (5-15); ASPARTATE AMINO TRANSFERASE 12 U/L (15-37); BILIRUBIN,TOTAL 0.3 MG/DL (0.2-1.0); BLOOD UREA NITROGEN 81 mg/dL (7-18); CALCIUM 8.1 MG/DL (8.5-10.1); CARBON DIOXIDE 20 MMOL/L (21-32); CHLORIDE 97 MMOL/L (98-107); CREATININE 9.8 MG/DL (0.55-1.30); PHOSPHORUS 5.3 MG/DL (2.5-4.9); POTASSIUM 4.8 MMOL/L (3.5-5.1); SODIUM 132 MMOL/L (136-145)
--- NOTE | 2018-02-04 06:58 | Consultation ---
Consult Note Consult Note Consult Hematology Chief Complaint: Chest Pain RFC: anemia evyonis SEGURA MD: Dolly Narvaez DOS: 02/04/18 HPI Mr. Angelica Moore is an 82 yo male with hx of IDDM, HTN and ESRD on HD MWF who presents with chest pain, generalized weakness and near syncope since yesterday. Central moderately severe chest pain intermittent. Blood pressure noted to be low yesterday according to granddaughter bedside who is caregiver. No hx of cardiac dz. Too sick to have dialysis today. No fever. No abd pain. No cough. No dyspnea. Patient is [place] speaking. Patient communicated through family member. cards, nephro consulted. This am is minimally communicative. Coded Allergies: No Known Allergies (Unverified , 05/25/13) Patient History Limited by: language barrier, age Past Medical History: see triage record, old chart reviewed Past Surgical History: other - reviewed per EMR Pertinent Family History: other - not pertinent to today's presentation Social History: Denies: smoking, drug use Reviewed Nursing Documentation: PMH: Agreed; PSxH: Agreed Past Medical History: No History, Except For Hx Cardiac Problems: Yes - high cholesterol Hx Hypertension: Yes Hx Diabetes: Yes Hx Cancer: No Hx Gastrointestinal Problems: No Hx Dialysis: Yes - M/W/F Hx Neurological Problems: Yes Hx Cerebrovascular Accident: Yes ER ROS - General Review of Systems Constitutional: Reports: malaise ++ Respiratory: Denies: shortness of breath Cardiovascular: Reports: chest pain Neurological: Denies: headache, numbness All Other Systems: negative except mentioned in HPI ER Physical Exam - General Physical Exam Vital Signs Date Time Temp Pulse Resp B/P (MAP) Pulse Ox O2 Delivery O2 Flow Rate FiO2 02/01/18 14:48 98.2 79 20 124/62 100 Room Air Sp02 EP Interpretation: reviewed, normal General Appearance: no apparent distress, alert, GCS 15, non-toxic Head: normocephalic, atraumatic Eyes: bilateral eye normal inspection ENT: hearing grossly normal, normal pharynx, no angioedema, normal voice Neck: full range of motion, supple/symm/no masses Respiratory: chest non-tender, lungs clear, normal breath sounds Cardiovascular #1: regular rate, rhythm, no edema, no gallop, no JVD, no murmur Gastrointestinal: normal bowel sounds, non tender, soft, non-distended Rectal: deferred Musculoskeletal: normal range of motion, non-tender, calf tenderness, other - AV access LUE +thrill + bruit Neurologic: alert, oriented x3, responsive Psychiatric: judgement/insight normal, memory normal, depressed affect Reflexes: 3+ knee (L), 3+ ankle (R) Skin: normal color, no rash, warm/dry, well hydrated Lymphatic: no adenopathy Last 24 Hour Vital Signs Date Time Temp Pulse Resp B/P (MAP) Pulse Ox O2 Delivery O2 Flow Rate FiO2 02/04/18 04:00 97.5 76 20 140/70 (93) 98 02/04/18 04:00 73 02/04/18 00:00 73 02/04/18 00:00 97.5 80 20 143/68 (93) 100 02/03/18 21:00 Nasal Cannula 2.0 02/03/18 20:00 97.9 76 20 140/70 (93) 100 02/03/18 20:00 75 02/03/18 16:00 97.6 78 20 146/75 (98) 97 02/03/18 15:44 82 02/03/18 12:00 97.6 81 20 130/73 (92) 98 02/03/18 11:52 77 02/03/18 09:02 133/79 02/03/18 08:30 Room Air 02/03/18 08:00 97.8 79 20 133/79 (97) 98 02/03/18 07:49 78 Current Medications Medications (Trade) Dose Ordered Sig/Stephany Route PRN Reason Start Time Stop Time Status Last Admin Dose Admin Acetaminophen (Tylenol) 650 mg Q4H PRN ORAL Mild Pain/Temp > 100.5 02/01/18 18:00 03/03/18 17:59 02/02/18 22:30 Aspirin (ASA) 81 mg DAILY ORAL 02/03/18 09:00 03/05/18 08:59 Benazepril HCl (Lotensin) 10 mg DAILY ORAL 02/02/18 09:00 03/04/18 08:59 02/03/18 09:02 Dextrose (Dextrose 50%) 25 ml Q30M PRN IV Hypoglycemia 02/01/18 18:30 03/03/18 18:29 Dextrose (Dextrose 50%) 50 ml Q30M PRN IV Hypoglycemia 02/01/18 18:30 03/03/18 18:29 Finasteride (Proscar) 5 mg DAILY ORAL 02/02/18 09:00 03/04/18 08:59 02/03/18 09:02 Gemfibrozil (Lopid) 600 mg BID ORAL 02/01/18 18:00 03/03/18 17:59 02/03/18 17:48 Heparin Sodium (Porcine) (Heparin 5000 units/ml) 5,000 units EVERY 12 HOURS SUBQ 02/01/18 21:00 03/03/18 20:59 02/03/18 20:45 Insulin Aspart (NovoLOG) BEFORE MEALS AND HS SUBQ 02/01/18 21:00 03/03/18 20:59 02/03/18 20:43 Pantoprazole (Protonix) 40 mg BID ORAL 02/02/18 18:00 03/04/18 08:59 02/03/18 17:48 Piperacillin Sod/ Tazobactam Sod 2.25 gm/Dextrose 55 ml @ 110 mls/hr Q8H IVPB 02/02/18 11:00 02/09/18 10:59 02/04/18 03:43 Tamsulosin HCl (Flomax) 0.4 mg BEDTIME ORAL 02/01/18 21:00 03/03/18 20:59 02/03/18 20:41 Vancomycin HCl (Vanco rx to dose) 1 ea DAILY PRN MISC Per rx protocol 02/03/18 11:30 03/05/18 11:29 Vancomycin HCl 1 gm/Dextrose 275 ml @ 183.708 mls/hr ONCE IVPB 02/04/18 08:00 02/09/18 07:59 Diagnostic Impression: Laboratory Tests Test 02/04/18 05:52 White Blood Count 9.8 K/UL (4.8-10.8) Red Blood Count 3.17 M/UL (4.70-6.10) L Hemoglobin 9.8 G/DL (14.2-18.0) L Hematocrit 29.5 % (42.0-52.0) L Mean Corpuscular Volume 93 FL (80-99) Mean Corpuscular Hemoglobin 31.1 PG (27.0-31.0) H Mean Corpuscular Hemoglobin Concent 33.3 G/DL (32.0-36.0) Red Cell Distribution Width 12.6 % (11.6-14.8) Platelet Count 309 K/UL (150-450) Mean Platelet Volume 5.6 FL (6.5-10.1) L Neutrophils (%) (Auto) 72.0 % (45.0-75.0) Lymphocytes (%) (Auto) 13.3 % (20.0-45.0) L Monocytes (%) (Auto) 10.7 % (1.0-10.0) H Eosinophils (%) (Auto) 3.3 % (0.0-3.0) H Basophils (%) (Auto) 0.7 % (0.0-2.0) Sodium Level 132 MMOL/L (136-145) L Potassium Level 4.8 MMOL/L (3.5-5.1) Chloride Level 97 MMOL/L (98-107) L Carbon Dioxide Level 20 MMOL/L (21-32) L Anion Gap 15 mmol/L (5-15) Blood Urea Nitrogen 81 mg/dL (7-18) H Creatinine 9.8 MG/DL (0.55-1.30) H Estimat Glomerular Filtration Rate mL/min (>60) Glucose Level 143 MG/DL (74-106) H Uric Acid 9.6 MG/DL (2.6-7.2) H Calcium Level 8.1 MG/DL (8.5-10.1) L Phosphorus Level 5.3 MG/DL (2.5-4.9) H Magnesium Level 1.9 MG/DL (1.8-2.4) Total Bilirubin 0.3 MG/DL (0.2-1.0) Aspartate Amino Transf (AST/SGOT) 12 U/L (15-37) L Alanine Aminotransferase (ALT/SGPT) 18 U/L (12-78) Alkaline Phosphatase 96 U/L (46-116) Total Protein 7.1 G/DL (6.4-8.2) Albumin 2.2 G/DL (3.4-5.0) L Globulin 4.9 g/dL Albumin/Globulin Ratio 0.4 (1.0-2.7) L Random Vancomycin Level 19.9 ug/mL Primary Impression: ACS (acute coronary syndrome) Additional Impressions: Hypotension ESRD (end stage renal disease) ER Course Mr. Tzec Can presents with chest pain and near syncope, generalized weakness. Concern for cardiac event. Upon arrival nurse informed me of hypotension which was persistent over 30+ minutes. He required small bolus 500 mL NS. BP did normalize. Due to hypotension and leukocytosis broad spectrum antibiotics were administered for possible sepsis. However, patient did not appear toxic as if bacteremic. Dr. Narvaez agreed to admit. 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 Brandt. ASA ordered. Labs Test 02/01/18 12:27 White Blood Count 13.9 K/UL (4.8-10.8) Red Blood Count 3.66 M/UL (4.70-6.10) Hemoglobin 11.5 G/DL (14.2-18.0) Hematocrit 34.3 % (42.0-52.0) Mean Corpuscular Volume 94 FL (80-99) Mean Corpuscular Hemoglobin 31.4 PG (27.0-31.0) Mean Corpuscular Hemoglobin Concent 33.5 G/DL (32.0-36.0) Red Cell Distribution Width 12.4 % (11.6-14.8) Platelet Count 280 K/UL (150-450) Mean Platelet Volume 6.5 FL (6.5-10.1) Neutrophils (%) (Auto) 79.1 % (45.0-75.0) Lymphocytes (%) (Auto) 10.4 % (20.0-45.0) Monocytes (%) (Auto) 9.6 % (1.0-10.0) Eosinophils (%) (Auto) 0.5 % (0.0-3.0) Basophils (%) (Auto) 0.4 % (0.0-2.0) Sodium Level 134 MMOL/L (136-145) Potassium Level 3.9 MMOL/L (3.5-5.1) Chloride Level 96 MMOL/L (98-107) Carbon Dioxide Level 26 MMOL/L (21-32) Anion Gap 12 mmol/L (5-15) Blood Urea Nitrogen 60 mg/dL (7-18) Creatinine 7.7 MG/DL (0.55-1.30) Estimat Glomerular Filtration Rate mL/min (>60) Glucose Level 128 MG/DL (74-106) Calcium Level 8.3 MG/DL (8.5-10.1) Troponin I 0.022 ng/mL (0.000-0.056) Assessment and Recs: # 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 Gigi Aguirre MD Feb 04, 2018 06:58
[2018-02-04] MEDS ORDERED: Vancomycin 1gm/D5W 275ml IVPB SCH ×2 (08:00)
[2018-02-04] MEDS: Benazepril 10mg tab ORAL SCH (08:42)
[2018-02-04] MEDS: Heparin 5000 units/ml inj SUBQ SCH ×2 (08:55→21:47)
[2018-02-04] MEDS: Aspirin Baby 81mg ORAL SCH (08:55)
--- NOTE | 2018-02-04 09:56 | Nephrology Progress Note ---
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 Plan no dialysis since admission HD today after declotting Antibiotics keep bp in check Zosyn change to Rocephin per culture results Subjective ROS Limited/Unobtainable: No Constitutional: Reports: malaise Objective Objective Last 24 Hour Vital Signs Date Time Temp Pulse Resp B/P (MAP) Pulse Ox O2 Delivery O2 Flow Rate FiO2 02/04/18 08:42 151/78 02/04/18 08:00 97.6 75 16 151/78 (102) 97 02/04/18 04:00 97.5 76 20 140/70 (93) 98 02/04/18 04:00 73 02/04/18 00:00 73 02/04/18 00:00 97.5 80 20 143/68 (93) 100 02/03/18 21:00 Nasal Cannula 2.0 02/03/18 20:00 97.9 76 20 140/70 (93) 100 02/03/18 20:00 75 02/03/18 16:00 97.6 78 20 146/75 (98) 97 02/03/18 15:44 82 02/03/18 12:00 97.6 81 20 130/73 (92) 98 02/03/18 11:52 77 Intake and Output 02/03/18 02/04/18 19:00 07:00 Intake Total 580 ml 120 ml Balance 580 ml 120 ml Intake Oral 580 ml 120 ml # Voids 2 # Bowel Movements 2 4 Laboratory Tests 02/04/18 05:52: White Blood Count 9.8, Red Blood Count 3.17L, Hemoglobin 9.8L, Hematocrit 29.5L , Mean Corpuscular Volume 93, Mean Corpuscular Hemoglobin 31.1H, Mean Corpuscular Hemoglobin Concent 33.3, Red Cell Distribution Width 12.6, Platelet Count 309, Mean Platelet Volume 5.6L, Neutrophils (%) (Auto) 72.0, Lymphocytes ( %) (Auto) 13.3L, Monocytes (%) (Auto) 10.7H, Eosinophils (%) (Auto) 3.3H, Basophils (%) (Auto) 0.7, Sodium Level 132L, Potassium Level 4.8, Chloride Level 97L, Carbon Dioxide Level 20L, Anion Gap 15, Blood Urea Nitrogen 81H, Creatinine 9.8H, Estimat Glomerular Filtration Rate , Glucose Level 143H, Uric Acid 9.6H, Calcium Level 8.1L, Phosphorus Level 5.3H, Magnesium Level 1.9, Total Bilirubin 0.3, Aspartate Amino Transf (AST/SGOT) 12L, Alanine Aminotransferase (ALT/SGPT) 18, Alkaline Phosphatase 96, Total Protein 7.1, Albumin 2.2L, Globulin 4.9, Albumin/Globulin Ratio 0.4L, Random Vancomycin Level 19.9 Height (Feet): 5 Height (Inches): 4.00 Weight (Pounds): 155 General Appearance: no apparent distress Cardiovascular: normal rate Respiratory/Chest: decreased breath sounds Abdomen: soft Objective no change Mikey Brandt MD Feb 04, 2018 09:56
--- NOTE | 2018-02-04 11:53 | Infectious Diseases Prog Note ---
Assessment/Plan Assessment/Plan A: E. coli sepsis E. 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 DM P; Continue Rocephin & Vancomycin Subjective ROS Limited/Unobtainable: No Constitutional: Reports: no symptoms Respiratory: Reports: no symptoms Cardiovascular: Reports: other - HD graft was occluded Gastrointestinal/Abdominal: Reports: no symptoms Genitourinary: Reports: no symptoms Allergies: Coded Allergies: No Known Allergies (Unverified , 05/25/13) Objective Vital Signs Last 24 Hour Vital Signs Date Time Temp Pulse Resp B/P (MAP) Pulse Ox O2 Delivery O2 Flow Rate FiO2 02/04/18 09:00 Nasal Cannula 2.0 02/04/18 08:42 151/78 02/04/18 08:00 97.6 75 16 151/78 (102) 97 02/04/18 08:00 79 02/04/18 04:00 97.5 76 20 140/70 (93) 98 02/04/18 04:00 73 02/04/18 00:00 73 02/04/18 00:00 97.5 80 20 143/68 (93) 100 02/03/18 21:00 Nasal Cannula 2.0 02/03/18 20:00 97.9 76 20 140/70 (93) 100 02/03/18 20:00 75 02/03/18 16:00 97.6 78 20 146/75 (98) 97 02/03/18 15:44 82 02/03/18 12:00 97.6 81 20 130/73 (92) 98 02/03/18 11:52 77 Height (Feet): 5 Height (Inches): 4.00 Weight (Pounds): 459 General Appearance: no acute distress HEENT: mucous membranes moist Respiratory/Chest: lungs clear Cardiovascular: normal rate, other - left arm AV graft Abdomen: soft, non tender Extremities: no edema Neurologic/Psychiatric: alert, responsive Microbiology Date/Time Source Procedure Growth Status 02/01/18 15:35 Blood Blood Culture - Final Escherichia Coli Complete 02/01/18 15:35 Blood Blood Culture - Preliminary Escherichia Coli Staphylococcus Sp Coag Neg Resulted 02/01/18 15:35 Urine,Clean Catch Urine Culture - Final Escherichia Coli Complete Laboratory Tests Test 02/04/18 05:52 02/04/18 10:00 White Blood Count 9.8 K/UL (4.8-10.8) Red Blood Count 3.17 M/UL (4.70-6.10) L Hemoglobin 9.8 G/DL (14.2-18.0) L Hematocrit 29.5 % (42.0-52.0) L Mean Corpuscular Volume 93 FL (80-99) Mean Corpuscular Hemoglobin 31.1 PG (27.0-31.0) H Mean Corpuscular Hemoglobin Concent 33.3 G/DL (32.0-36.0) Red Cell Distribution Width 12.6 % (11.6-14.8) Platelet Count 309 K/UL (150-450) Mean Platelet Volume 5.6 FL (6.5-10.1) L Neutrophils (%) (Auto) 72.0 % (45.0-75.0) Lymphocytes (%) (Auto) 13.3 % (20.0-45.0) L Monocytes (%) (Auto) 10.7 % (1.0-10.0) H Eosinophils (%) (Auto) 3.3 % (0.0-3.0) H Basophils (%) (Auto) 0.7 % (0.0-2.0) Sodium Level 132 MMOL/L (136-145) L Potassium Level 4.8 MMOL/L (3.5-5.1) Chloride Level 97 MMOL/L (98-107) L Carbon Dioxide Level 20 MMOL/L (21-32) L Anion Gap 15 mmol/L (5-15) Blood Urea Nitrogen 81 mg/dL (7-18) H Creatinine 9.8 MG/DL (0.55-1.30) H Estimat Glomerular Filtration Rate mL/min (>60) Glucose Level 143 MG/DL (74-106) H Uric Acid 9.6 MG/DL (2.6-7.2) H Calcium Level 8.1 MG/DL (8.5-10.1) L Phosphorus Level 5.3 MG/DL (2.5-4.9) H Magnesium Level 1.9 MG/DL (1.8-2.4) Total Bilirubin 0.3 MG/DL (0.2-1.0) Aspartate Amino Transf (AST/SGOT) 12 U/L (15-37) L Alanine Aminotransferase (ALT/SGPT) 18 U/L (12-78) Alkaline Phosphatase 96 U/L (46-116) Total Protein 7.1 G/DL (6.4-8.2) Albumin 2.2 G/DL (3.4-5.0) L Globulin 4.9 g/dL Albumin/Globulin Ratio 0.4 (1.0-2.7) L Random Vancomycin Level 19.9 ug/mL Prothrombin Time 10.2 SEC (9.30-11.50) Prothromb Time International Ratio 1.0 (0.9-1.1) Activated Partial Thromboplast Time 31 SEC (23-33) Current Medications Medications (Trade) Dose Ordered Sig/Stephany Route PRN Reason Start Time Stop Time Status Last Admin Dose Admin Acetaminophen (Tylenol) 650 mg Q4H PRN ORAL Mild Pain/Temp > 100.5 02/01/18 18:00 03/03/18 17:59 02/02/18 22:30 Aspirin (ASA) 81 mg DAILY ORAL 02/03/18 09:00 03/05/18 08:59 Benazepril HCl (Lotensin) 10 mg DAILY ORAL 02/02/18 09:00 03/04/18 08:59 02/04/18 08:42 Ceftriaxone Sodium 1 gm/ Dextrose 55 ml @ 110 mls/hr Q24H IVPB 02/04/18 11:00 02/11/18 10:59 Dextrose (Dextrose 50%) 25 ml Q30M PRN IV Hypoglycemia 02/01/18 18:30 03/03/18 18:29 Dextrose (Dextrose 50%) 50 ml Q30M PRN IV Hypoglycemia 02/01/18 18:30 03/03/18 18:29 Finasteride (Proscar) 5 mg DAILY ORAL 02/02/18 09:00 03/04/18 08:59 02/04/18 08:42 Folic Acid (Folate) 1 mg DAILY ORAL 02/04/18 09:00 03/06/18 08:59 02/04/18 08:42 Gemfibrozil (Lopid) 600 mg BID ORAL 02/01/18 18:00 03/03/18 17:59 02/04/18 08:42 Heparin Sodium (Porcine) (Heparin 5000 units/ml) 5,000 units EVERY 12 HOURS SUBQ 02/01/18 21:00 03/03/18 20:59 02/03/18 20:45 Insulin Aspart (NovoLOG) BEFORE MEALS AND HS SUBQ 02/01/18 21:00 03/03/18 20:59 02/03/18 20:43 Pantoprazole (Protonix) 40 mg BID ORAL 02/02/18 18:00 03/04/18 08:59 02/04/18 08:42 Tamsulosin HCl (Flomax) 0.4 mg BEDTIME ORAL 02/01/18 21:00 03/03/18 20:59 02/03/18 20:41 Vancomycin HCl (Vanco rx to dose) 1 ea DAILY PRN MISC Per rx protocol 02/03/18 11:30 03/05/18 11:29 Vancomycin HCl 1 gm/Dextrose 275 ml @ 183.708 mls/hr ONCE IVPB 02/04/18 08:00 02/04/18 12:00 02/04/18 08:54 Boyd Tee MD Feb 04, 2018 11:53
[2018-02-04] MEDS: cefTRIAXone 1 GM in D5W 55 ML IVPB SCH (12:16)
--- NOTE | 2018-02-04 13:12 | Consultation ---
History of Present Illness General Date patient seen: Feb 03, 2018 Chief Complaint: Chest Pain Present Illness HPI 82 yo male with hx of anxiety and cognitive impairment, IDDM, HTN and ESRD on HD MWF who presents with chest pain, generalized weakness and near syncope. The pt has cognitive impairment. The pt has memory impairment and is unable to provide meaningful hx. the pt is [place] speaking and has anxiety disorder. Allergies: Coded Allergies: No Known Allergies (Unverified , 05/25/13) Medication History Scheduled Amlodipine Besylate (Norvasc), 2.5 MG ORAL DAILY, (Reported) Benazepril Hcl* (Benazepril Hcl*), 20 MG ORAL DAILY, (Reported) Cholecalciferol (Vitamin D3) (Vitamin D), 50,000 UNIT PO ONCE A WEEK, (Reported) Finasteride (Finasteride), 5 MG ORAL DAILY, (Reported) Gemfibrozil (Gemfibrozil*), 600 MG ORAL BID, (Reported) Heparin Sod (Porcine) (Heparin Sodium*), 5,000 UNITS SUBQ EVERY 12 HOURS, ( Reported) Insulin Aspart (Novolog Flexpen), SUBQ AC+HS, (Reported) Insulin Detemir (Levemir Flexpen), 5 SUBQ EVERY 12 HOURS, (Reported) No Known Medications* (NKM - No Known Medications*), 0 ., (Reported) Tamsulosin HCl (Flomax), 0.4 MG ORAL BEDTIME, (Reported) Scheduled PRN Clonidine Hcl (Clonidine Hcl), 0.1 MG PO Q4HR PRN for For High Blood Pressure, ( Reported) Patient History Limited by: medical condition History Provided By: Patient, Medical Record, PMD Healthcare decision maker Jasmin [facility] [phone] Resuscitation status Full Code Advanced Directive on File No Past Medical/Surgical History Past Medical/Surgical History: (1) Colonization with VRE (vancomycin-resistant enterococcus) (2) Urinary retention (3) Dialysis catheter clot or failure (4) acute renal failure (5) ESRD (end stage renal disease) (6) Hypotension (7) Chest pain (8) Diabetes (9) Sepsis (10) CVA (cerebral vascular accident) (11) UTI (lower urinary tract infection) (12) ACS (acute coronary syndrome) (13) Gram-negative bacteremia Review of Systems Psychiatric: Reports: anxiety, depressed feelings, emotional problems Physical Exam General Appearance: alert, confused Neurologic: disoriented, depressed affect Last 24 Hour Vital Signs Date Time Temp Pulse Resp B/P (MAP) Pulse Ox O2 Delivery O2 Flow Rate FiO2 02/04/18 09:00 Nasal Cannula 2.0 02/04/18 08:42 151/78 02/04/18 08:00 97.6 75 16 151/78 (102) 97 02/04/18 08:00 79 02/04/18 04:00 97.5 76 20 140/70 (93) 98 02/04/18 04:00 73 02/04/18 00:00 73 02/04/18 00:00 97.5 80 20 143/68 (93) 100 02/03/18 21:00 Nasal Cannula 2.0 02/03/18 20:00 97.9 76 20 140/70 (93) 100 02/03/18 20:00 75 02/03/18 16:00 97.6 78 20 146/75 (98) 97 02/03/18 15:44 82 Intake and Output 02/03/18 02/04/18 19:00 07:00 Intake Total 580 ml 120 ml Balance 580 ml 120 ml Intake Oral 580 ml 120 ml # Voids 2 # Bowel Movements 2 4 Laboratory Tests Test 02/04/18 05:52 02/04/18 10:00 White Blood Count 9.8 K/UL (4.8-10.8) Red Blood Count 3.17 M/UL (4.70-6.10) L Hemoglobin 9.8 G/DL (14.2-18.0) L Hematocrit 29.5 % (42.0-52.0) L Mean Corpuscular Volume 93 FL (80-99) Mean Corpuscular Hemoglobin 31.1 PG (27.0-31.0) H Mean Corpuscular Hemoglobin Concent 33.3 G/DL (32.0-36.0) Red Cell Distribution Width 12.6 % (11.6-14.8) Platelet Count 309 K/UL (150-450) Mean Platelet Volume 5.6 FL (6.5-10.1) L Neutrophils (%) (Auto) 72.0 % (45.0-75.0) Lymphocytes (%) (Auto) 13.3 % (20.0-45.0) L Monocytes (%) (Auto) 10.7 % (1.0-10.0) H Eosinophils (%) (Auto) 3.3 % (0.0-3.0) H Basophils (%) (Auto) 0.7 % (0.0-2.0) Sodium Level 132 MMOL/L (136-145) L Potassium Level 4.8 MMOL/L (3.5-5.1) Chloride Level 97 MMOL/L (98-107) L Carbon Dioxide Level 20 MMOL/L (21-32) L Anion Gap 15 mmol/L (5-15) Blood Urea Nitrogen 81 mg/dL (7-18) H Creatinine 9.8 MG/DL (0.55-1.30) H Estimat Glomerular Filtration Rate mL/min (>60) Glucose Level 143 MG/DL (74-106) H Uric Acid 9.6 MG/DL (2.6-7.2) H Calcium Level 8.1 MG/DL (8.5-10.1) L Phosphorus Level 5.3 MG/DL (2.5-4.9) H Magnesium Level 1.9 MG/DL (1.8-2.4) Total Bilirubin 0.3 MG/DL (0.2-1.0) Aspartate Amino Transf (AST/SGOT) 12 U/L (15-37) L Alanine Aminotransferase (ALT/SGPT) 18 U/L (12-78) Alkaline Phosphatase 96 U/L (46-116) Total Protein 7.1 G/DL (6.4-8.2) Albumin 2.2 G/DL (3.4-5.0) L Globulin 4.9 g/dL Albumin/Globulin Ratio 0.4 (1.0-2.7) L Random Vancomycin Level 19.9 ug/mL Prothrombin Time 10.2 SEC (9.30-11.50) Prothromb Time International Ratio 1.0 (0.9-1.1) Activated Partial Thromboplast Time 31 SEC (23-33) Height (Feet): 5 Height (Inches): 4.00 Weight (Pounds): 459 Medications Current Medications Medications (Trade) Dose Ordered Sig/Stephany Route PRN Reason Start Time Stop Time Status Last Admin Dose Admin Acetaminophen (Tylenol) 650 mg Q4H PRN ORAL Mild Pain/Temp > 100.5 02/01/18 18:00 03/03/18 17:59 02/02/18 22:30 Aspirin (ASA) 81 mg DAILY ORAL 02/03/18 09:00 03/05/18 08:59 Benazepril HCl (Lotensin) 10 mg DAILY ORAL 02/02/18 09:00 03/04/18 08:59 02/04/18 08:42 Ceftriaxone Sodium 1 gm/ Dextrose 55 ml @ 110 mls/hr Q24H IVPB 02/04/18 11:00 02/11/18 10:59 02/04/18 12:16 Dextrose (Dextrose 50%) 25 ml Q30M PRN IV Hypoglycemia 02/01/18 18:30 03/03/18 18:29 Dextrose (Dextrose 50%) 50 ml Q30M PRN IV Hypoglycemia 02/01/18 18:30 03/03/18 18:29 Finasteride (Proscar) 5 mg DAILY ORAL 02/02/18 09:00 03/04/18 08:59 02/04/18 08:42 Folic Acid (Folate) 1 mg DAILY ORAL 02/04/18 09:00 03/06/18 08:59 02/04/18 08:42 Gemfibrozil (Lopid) 600 mg BID ORAL 02/01/18 18:00 03/03/18 17:59 02/04/18 08:42 Heparin Sodium (Porcine) (Heparin 5000 units/ml) 5,000 units EVERY 12 HOURS SUBQ 02/01/18 21:00 03/03/18 20:59 02/03/18 20:45 Insulin Aspart (NovoLOG) BEFORE MEALS AND HS SUBQ 02/01/18 21:00 03/03/18 20:59 02/03/18 20:43 Pantoprazole (Protonix) 40 mg BID ORAL 02/02/18 18:00 03/04/18 08:59 02/04/18 08:42 Tamsulosin HCl (Flomax) 0.4 mg BEDTIME ORAL 02/01/18 21:00 03/03/18 20:59 02/03/18 20:41 Vancomycin HCl (Vanco rx to dose) 1 ea DAILY PRN MISC Per rx protocol 02/03/18 11:30 03/05/18 11:29 Assessment/Plan Problem List: (1) vascular dementia Status: unchanged Assessment/Plan ativan prn provided ro/st MIPS Medication Reconciliation Is this a Psycho/Diag encounte: Yes Unhealthy Alcohol Use 431 (psycho/diag only) Patient was screened for unhealthy alcohol use today or within the past 2 years. Patient was NOT identified as an unhealthy alcohol user. Tobacco Use 226 (psycho/diag only) Patient was screened for tobacco use today or within the past 2 years. Patient was NOT identified as a tobacco user. BMI 128 (psycho/diag only) BMI was documented today or within the past year. BMI was outside normal parameters, and the patient received counseling. Depression 134,411,370 (psycho/diag only) Depression screening was performed today. PHQ-9 Score: 2 Does this Patient have Dementi: Yes Safety Screening-Dementia 286 (psycho/diag only) Safety screening performed today-negative. Caregiver Health-Dementia 288 (psycho/diag only) Caregiver was informed today that he/she is at an increased risk of illness, including circulatory and heart conditions, respiratory disease, hypertension, anxiety, and depression. Caregiver was provided with education on dementia disease management and referred to additional resources for support. Zi Carrera MD Feb 04, 2018 13:12
--- NOTE | 2018-02-04 13:31 | General Progress Note ---
Assessment/Plan Problem List: (1) vascular dementia Status: stable, progressing Assessment/Plan ativan prn provided ro/st Subjective Date patient seen: Feb 04, 2018 Neurologic/Psychiatric: Reports: anxiety Allergies: Coded Allergies: No Known Allergies (Unverified , 05/25/13) Objective Last 24 Hour Vital Signs Date Time Temp Pulse Resp B/P (MAP) Pulse Ox O2 Delivery O2 Flow Rate FiO2 02/04/18 09:00 Nasal Cannula 2.0 02/04/18 08:42 151/78 02/04/18 08:00 97.6 75 16 151/78 (102) 97 02/04/18 08:00 79 02/04/18 04:00 97.5 76 20 140/70 (93) 98 02/04/18 04:00 73 02/04/18 00:00 73 02/04/18 00:00 97.5 80 20 143/68 (93) 100 02/03/18 21:00 Nasal Cannula 2.0 02/03/18 20:00 97.9 76 20 140/70 (93) 100 02/03/18 20:00 75 02/03/18 16:00 97.6 78 20 146/75 (98) 97 02/03/18 15:44 82 Intake and Output 02/03/18 02/04/18 19:00 07:00 Intake Total 580 ml 120 ml Balance 580 ml 120 ml Intake Oral 580 ml 120 ml # Voids 2 # Bowel Movements 2 4 Laboratory Tests 02/04/18 05:52: White Blood Count 9.8, Red Blood Count 3.17L, Hemoglobin 9.8L, Hematocrit 29.5L , Mean Corpuscular Volume 93, Mean Corpuscular Hemoglobin 31.1H, Mean Corpuscular Hemoglobin Concent 33.3, Red Cell Distribution Width 12.6, Platelet Count 309, Mean Platelet Volume 5.6L, Neutrophils (%) (Auto) 72.0, Lymphocytes ( %) (Auto) 13.3L, Monocytes (%) (Auto) 10.7H, Eosinophils (%) (Auto) 3.3H, Basophils (%) (Auto) 0.7, Sodium Level 132L, Potassium Level 4.8, Chloride Level 97L, Carbon Dioxide Level 20L, Anion Gap 15, Blood Urea Nitrogen 81H, Creatinine 9.8H, Estimat Glomerular Filtration Rate , Glucose Level 143H, Uric Acid 9.6H, Calcium Level 8.1L, Phosphorus Level 5.3H, Magnesium Level 1.9, Total Bilirubin 0.3, Aspartate Amino Transf (AST/SGOT) 12L, Alanine Aminotransferase (ALT/SGPT) 18, Alkaline Phosphatase 96, Total Protein 7.1, Albumin 2.2L, Globulin 4.9, Albumin/Globulin Ratio 0.4L, Random Vancomycin Level 19.9 02/04/18 10:00: Prothrombin Time 10.2, Prothromb Time International Ratio 1.0, Activated Partial Thromboplast Time 31 Height (Feet): 5 Height (Inches): 4.00 Weight (Pounds): 459 General Appearance: alert, confused Neurologic: responsive, normal mood/affect MIPS Medication Reconciliation Is this a Psycho/Diag encounte: Zi Riddle MD Feb 04, 2018 13:31
[2018-02-04] MEDS ORDERED: Heparin 2000 units/Ns 1000ml INJ PRN (14:45)
[2018-02-04] MEDS ORDERED: Lidocaine 2% 20mg/ml/Epi 0.005mg/ml 20ml vial INJ PRN (14:45)
[2018-02-04] MEDS ORDERED: Heparin Sod 1000 units/ml 10ml INJ PRN (14:45)
--- NOTE | 2018-02-04 21:18 | General Progress Note ---
Assessment/Plan Problem List: (1) Diabetes ICD Codes: E11.9 - Type 2 diabetes mellitus without complications SNOMED: 65793580 (2) Sepsis ICD Codes: A41.9 - Sepsis, unspecified organism SNOMED: 02448207 (3) CVA (cerebral vascular accident) ICD Codes: I63.9 - Cerebral infarction, unspecified SNOMED: 796639760 (4) UTI (lower urinary tract infection) ICD Codes: N39.0 - Urinary tract infection, site not specified SNOMED: 8597766 (5) ESRD (end stage renal disease) ICD Codes: N18.6 - End stage renal disease SNOMED: 64485238 (6) Hypotension ICD Codes: I95.9 - Hypotension, unspecified SNOMED: 09494562 (7) ACS (acute coronary syndrome) ICD Codes: I24.9 - Acute ischemic heart disease, unspecified SNOMED: 109234047 (8) Chest pain ICD Codes: R07.9 - Chest pain, unspecified SNOMED: 27399205 Status: progressing Assessment/Plan hematurea improved no fever today esrd on hd h/o cva uti hypotension improved r/o acs neg trop Subjective ROS Limited/Unobtainable: Yes Allergies: Coded Allergies: No Known Allergies (Unverified , 05/25/13) Objective Last 24 Hour Vital Signs Date Time Temp Pulse Resp B/P (MAP) Pulse Ox O2 Delivery O2 Flow Rate FiO2 02/04/18 16:35 78 16 157/64 (95) 99 02/04/18 16:30 82 16 161/65 (97) 99 02/04/18 16:25 80 16 144/59 (87) 99 02/04/18 16:20 84 16 163/64 (97) 100 02/04/18 16:15 78 16 177/65 (102) 99 02/04/18 16:10 78 16 166/77 (106) 100 02/04/18 16:05 80 16 172/69 (103) 99 02/04/18 16:00 83 16 181/66 (104) 99 02/04/18 15:55 69 16 172/71 (104) 100 02/04/18 15:50 88 16 165/64 (97) 100 02/04/18 15:45 91 16 165/71 (102) 98 02/04/18 15:40 92 16 152/53 (86) 99 02/04/18 15:35 90 16 162/55 (90) 99 02/04/18 15:30 88 16 169/77 (107) 99 02/04/18 15:25 84 16 175/78 (110) 99 02/04/18 15:20 73 16 165/79 (107) 98 02/04/18 15:05 68 16 02/04/18 12:00 74 02/04/18 12:00 97.7 69 20 124/55 (78) 100 02/04/18 09:00 Nasal Cannula 2.0 02/04/18 08:42 151/78 02/04/18 08:00 97.6 75 16 151/78 (102) 97 02/04/18 08:00 79 02/04/18 04:00 97.5 76 20 140/70 (93) 98 02/04/18 04:00 73 02/04/18 00:00 73 02/04/18 00:00 97.5 80 20 143/68 (93) 100 Intake and Output 02/03/18 02/04/18 18:59 06:59 Intake Total 580 ml 120 ml Balance 580 ml 120 ml Intake Oral 580 ml 120 ml # Voids 2 # Bowel Movements 2 4 Laboratory Tests 02/04/18 05:52: White Blood Count 9.8, Red Blood Count 3.17L, Hemoglobin 9.8L, Hematocrit 29.5L , Mean Corpuscular Volume 93, Mean Corpuscular Hemoglobin 31.1H, Mean Corpuscular Hemoglobin Concent 33.3, Red Cell Distribution Width 12.6, Platelet Count 309, Mean Platelet Volume 5.6L, Neutrophils (%) (Auto) 72.0, Lymphocytes ( %) (Auto) 13.3L, Monocytes (%) (Auto) 10.7H, Eosinophils (%) (Auto) 3.3H, Basophils (%) (Auto) 0.7, Sodium Level 132L, Potassium Level 4.8, Chloride Level 97L, Carbon Dioxide Level 20L, Anion Gap 15, Blood Urea Nitrogen 81H, Creatinine 9.8H, Estimat Glomerular Filtration Rate , Glucose Level 143H, Uric Acid 9.6H, Calcium Level 8.1L, Phosphorus Level 5.3H, Magnesium Level 1.9, Total Bilirubin 0.3, Aspartate Amino Transf (AST/SGOT) 12L, Alanine Aminotransferase (ALT/SGPT) 18, Alkaline Phosphatase 96, Total Protein 7.1, Albumin 2.2L, Globulin 4.9, Albumin/Globulin Ratio 0.4L, Random Vancomycin Level 19.9 02/04/18 10:00: Prothrombin Time 10.2, Prothromb Time International Ratio 1.0, Activated Partial Thromboplast Time 31 Height (Feet): 5 Height (Inches): 4.00 Weight (Pounds): 459 Neck: non-tender Respiratory/Chest: lungs clear Abdomen: soft Dolly Narvaez MD Feb 04, 2018 21:18
[2018-02-04] MEDS: Tamsulosin 0.4mg cap ORAL SCH (21:45)
[2018-02-05] VITALS: BP 136/60
[2018-02-05 04:00] VITALS: BP 137/50
[2018-02-05] MEDS: NovoLOG Insulin Flexpen SUBQ SCH ×4 (05:35→21:14)
[2018-02-05 09:00] VITALS: BP 149/76
[2018-02-05] MEDS: Aspirin Baby 81mg ORAL SCH (09:00)
[2018-02-05] MEDS: Heparin 5000 units/ml inj SUBQ SCH ×2 (09:00→21:00)
[2018-02-05 09:17] LABS: ANION GAP 12 mmol/L (5-15); BLOOD UREA NITROGEN 55 mg/dL (7-18); CALCIUM 8.4 MG/DL (8.5-10.1); CARBON DIOXIDE 28 MMOL/L (21-32); CHLORIDE 97 MMOL/L (98-107); CREATININE 7.5 MG/DL (0.55-1.30); POTASSIUM 4.1 MMOL/L (3.5-5.1); SODIUM 136 MMOL/L (136-145)
[2018-02-05] MEDS: Benazepril 10mg tab ORAL SCH (09:57)
--- NOTE | 2018-02-05 10:26 | General Progress Note ---
Assessment/Plan Status: stable Assessment/Plan # Anemia due to chronic disease -- hgb trending at 9-11 --> consider anemia panel, which was ordered on admission, ferritin >1000 --> does not require iron at this time --> if hgb worsens, consider potential iv iron --> Hgb goal > 7, transfuse prn --> Cont on po folic acid daily # Gram-negative bacteremia --> ID is following, appreciate recs --> Blood cx++ --> on broad spectrum abx: vanc/Zosyn # ESRD (end stage renal disease) --> recs per Neprho # Hypotension --> cardiology is following, appreciate recs. # UTI (lower urinary tract infection) --> Urine cx++ # Diabetes Greatly appreciate consultation! Subjective Date patient seen: Feb 05, 2018 ROS Limited/Unobtainable: Yes Hematologic/Lymphatic: Reports: anemia Allergies: Coded Allergies: No Known Allergies (Unverified , 05/25/13) Subjective Pt resting in bed. No acute events. H/H stable. VS stable. Objective Last 24 Hour Vital Signs Date Time Temp Pulse Resp B/P (MAP) Pulse Ox O2 Delivery O2 Flow Rate FiO2 02/05/18 09:57 149/76 02/05/18 09:00 96.8 70 20 149/76 (100) 96 02/05/18 04:00 68 02/05/18 04:00 98.1 70 20 137/50 (79) 100 02/05/18 00:00 69 02/05/18 00:00 98.0 68 20 136/60 (85) 99 02/04/18 21:00 Nasal Cannula 2.0 02/04/18 20:00 97.7 65 18 123/58 (79) 100 02/04/18 20:00 74 02/04/18 16:35 78 16 157/64 (95) 99 02/04/18 16:30 82 16 161/65 (97) 99 02/04/18 16:25 80 16 144/59 (87) 99 02/04/18 16:20 84 16 163/64 (97) 100 02/04/18 16:15 78 16 177/65 (102) 99 02/04/18 16:10 78 16 166/77 (106) 100 02/04/18 16:05 80 16 172/69 (103) 99 02/04/18 16:00 83 16 181/66 (104) 99 02/04/18 15:55 69 16 172/71 (104) 100 02/04/18 15:50 88 16 165/64 (97) 100 02/04/18 15:45 91 16 165/71 (102) 98 02/04/18 15:40 92 16 152/53 (86) 99 02/04/18 15:35 90 16 162/55 (90) 99 02/04/18 15:30 88 16 169/77 (107) 99 02/04/18 15:25 84 16 175/78 (110) 99 02/04/18 15:20 73 16 165/79 (107) 98 02/04/18 15:05 68 16 02/04/18 12:00 74 02/04/18 12:00 97.7 69 20 124/55 (78) 100 Intake and Output 02/04/18 02/05/18 19:00 07:00 Output Total 0 ml Balance 0 ml Output Urine Total 0 ml # Voids 2 1 Laboratory Tests 02/05/18 08:30: Sodium Level 136, Potassium Level 4.1, Chloride Level 97L, Carbon Dioxide Level 28, Anion Gap 12, Blood Urea Nitrogen 55H, Creatinine 7.5H, Estimat Glomerular Filtration Rate , Glucose Level 104, Calcium Level 8.4L Height (Feet): 5 Height (Inches): 4.00 Weight (Pounds): 459 Objective Sp02 EP Interpretation: reviewed, normal General Appearance: no apparent distress, alert, GCS 15, non-toxic Head: normocephalic, atraumatic Eyes: bilateral eye normal inspection ENT: hearing grossly normal, normal pharynx, no angioedema, normal voice Neck: full range of motion, supple/symm/no masses Respiratory: chest non-tender, lungs clear, normal breath sounds Cardiovascular #1: regular rate, rhythm, no edema, no gallop, no JVD, no murmur Gastrointestinal: normal bowel sounds, non tender, soft, non-distended Rectal: deferred Musculoskeletal: normal range of motion, non-tender, calf tenderness, other - AV access LUE +thrill + bruit Neurologic: alert, oriented x3, responsive Psychiatric: judgement/insight normal, memory normal, depressed affect Reflexes: 3+ knee (L), 3+ ankle (R) Skin: normal color, no rash, warm/dry, well hydrated Lymphatic: no adenopathy Gigi Aguirre MD Feb 05, 2018 10:26
[2018-02-05] MEDS: cefTRIAXone 1 GM in D5W 55 ML IVPB SCH (11:53)
[2018-02-05 12:00] VITALS: BP 178/81
--- NOTE | 2018-02-05 12:10 | Infectious Diseases Prog Note ---
Assessment/Plan Assessment/Plan A: E. coli sepsis E. 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 DM P; Continue Rocephin & Vancomycin Case was D/W primary MD Subjective ROS Limited/Unobtainable: Yes Constitutional: Reports: no symptoms Cardiovascular: Reports: other - had temporary HD line placement yesterday Allergies: Coded Allergies: No Known Allergies (Unverified , 05/25/13) Objective Vital Signs Last 24 Hour Vital Signs Date Time Temp Pulse Resp B/P (MAP) Pulse Ox O2 Delivery O2 Flow Rate FiO2 02/05/18 09:57 149/76 02/05/18 09:00 96.8 70 20 149/76 (100) 96 02/05/18 04:00 68 02/05/18 04:00 98.1 70 20 137/50 (79) 100 02/05/18 00:00 69 02/05/18 00:00 98.0 68 20 136/60 (85) 99 02/04/18 21:00 Nasal Cannula 2.0 02/04/18 20:00 97.7 65 18 123/58 (79) 100 02/04/18 20:00 74 02/04/18 16:35 78 16 157/64 (95) 99 02/04/18 16:30 82 16 161/65 (97) 99 02/04/18 16:25 80 16 144/59 (87) 99 02/04/18 16:20 84 16 163/64 (97) 100 02/04/18 16:15 78 16 177/65 (102) 99 02/04/18 16:10 78 16 166/77 (106) 100 02/04/18 16:05 80 16 172/69 (103) 99 02/04/18 16:00 83 16 181/66 (104) 99 02/04/18 15:55 69 16 172/71 (104) 100 02/04/18 15:50 88 16 165/64 (97) 100 02/04/18 15:45 91 16 165/71 (102) 98 02/04/18 15:40 92 16 152/53 (86) 99 02/04/18 15:35 90 16 162/55 (90) 99 02/04/18 15:30 88 16 169/77 (107) 99 02/04/18 15:25 84 16 175/78 (110) 99 02/04/18 15:20 73 16 165/79 (107) 98 02/04/18 15:05 68 16 Height (Feet): 5 Height (Inches): 4.00 Weight (Pounds): 459 General Appearance: no acute distress HEENT: mucous membranes moist Respiratory/Chest: lungs clear Cardiovascular: normal rate, other - femoral HD line Abdomen: soft, non tender Extremities: no edema Neurologic/Psychiatric: alert, responsive Laboratory Tests Test 02/05/18 08:30 Sodium Level 136 MMOL/L (136-145) Potassium Level 4.1 MMOL/L (3.5-5.1) Chloride Level 97 MMOL/L (98-107) L Carbon Dioxide Level 28 MMOL/L (21-32) Anion Gap 12 mmol/L (5-15) Blood Urea Nitrogen 55 mg/dL (7-18) H Creatinine 7.5 MG/DL (0.55-1.30) H Estimat Glomerular Filtration Rate mL/min (>60) Glucose Level 104 MG/DL (74-106) Calcium Level 8.4 MG/DL (8.5-10.1) L Current Medications Medications (Trade) Dose Ordered Sig/Stephany Route PRN Reason Start Time Stop Time Status Last Admin Dose Admin Acetaminophen (Tylenol) 650 mg Q4H PRN ORAL Mild Pain/Temp > 100.5 02/01/18 18:00 03/03/18 17:59 02/04/18 21:46 Aspirin (ASA) 81 mg DAILY ORAL 02/03/18 09:00 03/05/18 08:59 Benazepril HCl (Lotensin) 10 mg DAILY ORAL 02/02/18 09:00 03/04/18 08:59 02/05/18 09:57 Ceftriaxone Sodium 1 gm/ Dextrose 55 ml @ 110 mls/hr Q24H IVPB 02/04/18 11:00 02/11/18 10:59 02/05/18 11:53 Dextrose (Dextrose 50%) 25 ml Q30M PRN IV Hypoglycemia 02/01/18 18:30 03/03/18 18:29 Dextrose (Dextrose 50%) 50 ml Q30M PRN IV Hypoglycemia 02/01/18 18:30 03/03/18 18:29 Finasteride (Proscar) 5 mg DAILY ORAL 02/02/18 09:00 03/04/18 08:59 02/05/18 09:57 Folic Acid (Folate) 1 mg DAILY ORAL 02/04/18 09:00 03/06/18 08:59 02/05/18 09:57 Gemfibrozil (Lopid) 600 mg BID ORAL 02/01/18 18:00 03/03/18 17:59 02/05/18 09:57 Heparin Sodium (Porcine) (Heparin 5000 units/ml) 5,000 units EVERY 12 HOURS SUBQ 02/01/18 21:00 03/03/18 20:59 02/04/18 21:47 Heparin Sodium (Porcine) (Heparin Sod 1000 units/ml 10ml) 2,000 unit ONCE PRN INJ Radiology Procedure 02/04/18 14:45 02/06/18 14:44 Heparin Sodium/ Sodium Chloride (Heparin 2000 units/Ns 1000ml premix) 2,000 unit ONCE PRN INJ Radiology Procedure 02/04/18 14:45 02/06/18 14:44 Insulin Aspart (NovoLOG) BEFORE MEALS AND HS SUBQ 02/01/18 21:00 03/03/18 20:59 02/04/18 21:53 Lidocaine/ Epinephrine (Xylocaine 2%/ Epi MPF) 60 ml ONCE PRN INJ for Radiology Procedure 02/04/18 14:45 02/06/18 14:44 Pantoprazole (Protonix) 40 mg BID ORAL 02/02/18 18:00 03/04/18 08:59 02/05/18 10:01 Tamsulosin HCl (Flomax) 0.4 mg BEDTIME ORAL 02/01/18 21:00 03/03/18 20:59 02/04/18 21:45 Vancomycin HCl (Vanco rx to dose) 1 ea DAILY PRN MISC Per rx protocol 02/03/18 11:30 03/05/18 11:29 Boyd Tee MD Feb 05, 2018 12:10
--- NOTE | 2018-02-05 13:11 | Nephrology Progress Note ---
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 Plan dialysed yesterday via groin cath due groin permacath and HD in am and DC Antibiotics keep bp in check Zosyn change to Rocephin per culture results Subjective ROS Limited/Unobtainable: No Constitutional: Reports: malaise Objective Objective Last 24 Hour Vital Signs Date Time Temp Pulse Resp B/P (MAP) Pulse Ox O2 Delivery O2 Flow Rate FiO2 02/05/18 12:00 78 02/05/18 12:00 97.1 78 20 178/81 (113) 95 02/05/18 09:57 149/76 02/05/18 09:00 96.8 70 20 149/76 (100) 96 02/05/18 09:00 Nasal Cannula 2.0 02/05/18 08:00 75 02/05/18 04:00 68 02/05/18 04:00 98.1 70 20 137/50 (79) 100 02/05/18 00:00 69 02/05/18 00:00 98.0 68 20 136/60 (85) 99 02/04/18 21:00 Nasal Cannula 2.0 02/04/18 20:00 97.7 65 18 123/58 (79) 100 02/04/18 20:00 74 02/04/18 16:35 78 16 157/64 (95) 99 02/04/18 16:30 82 16 161/65 (97) 99 02/04/18 16:25 80 16 144/59 (87) 99 02/04/18 16:20 84 16 163/64 (97) 100 02/04/18 16:15 78 16 177/65 (102) 99 02/04/18 16:10 78 16 166/77 (106) 100 02/04/18 16:05 80 16 172/69 (103) 99 02/04/18 16:00 83 16 181/66 (104) 99 02/04/18 15:55 69 16 172/71 (104) 100 02/04/18 15:50 88 16 165/64 (97) 100 02/04/18 15:45 91 16 165/71 (102) 98 02/04/18 15:40 92 16 152/53 (86) 99 02/04/18 15:35 90 16 162/55 (90) 99 02/04/18 15:30 88 16 169/77 (107) 99 02/04/18 15:25 84 16 175/78 (110) 99 02/04/18 15:20 73 16 165/79 (107) 98 02/04/18 15:05 68 16 Intake and Output 02/04/18 02/05/18 19:00 07:00 Output Total 0 ml Balance 0 ml Output Urine Total 0 ml # Voids 2 1 Laboratory Tests 02/05/18 08:30: Sodium Level 136, Potassium Level 4.1, Chloride Level 97L, Carbon Dioxide Level 28, Anion Gap 12, Blood Urea Nitrogen 55H, Creatinine 7.5H, Estimat Glomerular Filtration Rate , Glucose Level 104, Calcium Level 8.4L Height (Feet): 5 Height (Inches): 4.00 Weight (Pounds): 159 General Appearance: no apparent distress Cardiovascular: normal rate Respiratory/Chest: decreased breath sounds Abdomen: soft Objective no change Mikey Brandt MD Feb 05, 2018 13:11
[2018-02-05 16:00] VITALS: BP 142/79
[2018-02-05 20:00] VITALS: BP 158/86
--- NOTE | 2018-02-05 20:40 | General Progress Note ---
Assessment/Plan Problem List: (1) Diabetes ICD Codes: E11.9 - Type 2 diabetes mellitus without complications SNOMED: 50641551 (2) Sepsis ICD Codes: A41.9 - Sepsis, unspecified organism SNOMED: 76021465 (3) CVA (cerebral vascular accident) ICD Codes: I63.9 - Cerebral infarction, unspecified SNOMED: 169462870 (4) UTI (lower urinary tract infection) ICD Codes: N39.0 - Urinary tract infection, site not specified SNOMED: 0845518 (5) ESRD (end stage renal disease) ICD Codes: N18.6 - End stage renal disease SNOMED: 81931428 (6) Hypotension ICD Codes: I95.9 - Hypotension, unspecified SNOMED: 50939386 (7) ACS (acute coronary syndrome) ICD Codes: I24.9 - Acute ischemic heart disease, unspecified SNOMED: 079820537 (8) Chest pain ICD Codes: R07.9 - Chest pain, unspecified SNOMED: 14231661 Status: progressing Assessment/Plan esrd on hd h/o cva uti hypotension improved r/o acs permacath per vascular/renal needs iv abx Subjective ROS Limited/Unobtainable: Yes Allergies: Coded Allergies: No Known Allergies (Unverified , 05/25/13) Objective Last 24 Hour Vital Signs Date Time Temp Pulse Resp B/P (MAP) Pulse Ox O2 Delivery O2 Flow Rate FiO2 02/05/18 16:00 96.3 75 20 142/79 (100) 97 02/05/18 16:00 80 02/05/18 12:00 78 02/05/18 12:00 97.1 78 20 178/81 (113) 95 02/05/18 09:57 149/76 02/05/18 09:00 96.8 70 20 149/76 (100) 96 02/05/18 09:00 Nasal Cannula 2.0 02/05/18 08:00 75 02/05/18 04:00 68 02/05/18 04:00 98.1 70 20 137/50 (79) 100 02/05/18 00:00 69 02/05/18 00:00 98.0 68 20 136/60 (85) 99 02/04/18 21:00 Nasal Cannula 2.0 Intake and Output 12/10/18 12/11/18 19:00 07:00 Output Total 0 ml Balance 0 ml Output Urine Total 0 ml # Voids 2 1 Laboratory Tests 02/05/18 08:30: Sodium Level 136, Potassium Level 4.1, Chloride Level 97L, Carbon Dioxide Level 28, Anion Gap 12, Blood Urea Nitrogen 55H, Creatinine 7.5H, Estimat Glomerular Filtration Rate , Glucose Level 104, Calcium Level 8.4L, C-Reactive Protein, Quantitative 10.2H Height (Feet): 5 Height (Inches): 4.00 Weight (Pounds): 159 General Appearance: confused Cardiovascular: normal rate Respiratory/Chest: lungs clear Abdomen: soft Dolly Narvaez MD Feb 05, 2018 20:40
[2018-02-05] MEDS: Tamsulosin 0.4mg cap ORAL SCH (21:13)
--- NOTE | 2018-02-05 23:56 | General Progress Note ---
Assessment/Plan Problem List: (1) vascular dementia Assessment/Plan ativan prn provided ro/st Subjective Neurologic/Psychiatric: Reports: anxiety, depressed Allergies: Coded Allergies: No Known Allergies (Unverified , 05/25/13) Objective Last 24 Hour Vital Signs Date Time Temp Pulse Resp B/P (MAP) Pulse Ox O2 Delivery O2 Flow Rate FiO2 02/05/18 16:00 96.3 75 20 142/79 (100) 97 02/05/18 16:00 80 02/05/18 12:00 78 02/05/18 12:00 97.1 78 20 178/81 (113) 95 02/05/18 09:57 149/76 02/05/18 09:00 96.8 70 20 149/76 (100) 96 02/05/18 09:00 Nasal Cannula 2.0 02/05/18 08:00 75 02/05/18 04:00 68 02/05/18 04:00 98.1 70 20 137/50 (79) 100 02/05/18 00:00 69 02/05/18 00:00 98.0 68 20 136/60 (85) 99 Intake and Output 02/04/18 02/05/18 18:59 06:59 Output Total 0 ml Balance 0 ml Output Urine Total 0 ml # Voids 2 1 Laboratory Tests 02/05/18 08:30: Sodium Level 136, Potassium Level 4.1, Chloride Level 97L, Carbon Dioxide Level 28, Anion Gap 12, Blood Urea Nitrogen 55H, Creatinine 7.5H, Estimat Glomerular Filtration Rate , Glucose Level 104, Calcium Level 8.4L, C-Reactive Protein, Quantitative 10.2H Height (Feet): 5 Height (Inches): 4.00 Weight (Pounds): 159 General Appearance: alert, agitated Zi Carrera MD Feb 05, 2018 23:56
[2018-02-06] VITALS (12 sets, daily range): BP systolic 119–191; BP diastolic 70–83
[2018-02-06] MEDS: NovoLOG Insulin Flexpen SUBQ SCH ×4 (05:55→20:44)
[2018-02-06 05:59] LABS: BASOPHILS % (AUTO) 0.7 % (0.0-2.0); EOSINOPHILS % (AUTO) 2.3 % (0.0-3.0); HEMATOCRIT 30.8 % (42.0-52.0); HEMOGLOBIN 10.4 G/DL (14.2-18.0); LYMPHOCYTES % (AUTO) 16.3 % (20.0-45.0); MEAN CORPUSCULAR VOLUME 93 FL (80-99); MONOCYTES % (AUTO) 11.4 % (1.0-10.0); NEUTROPHILS % (AUTO) 69.4 % (45.0-75.0); PLATELET COUNT 391 K/UL (150-450); RED CELL DISTRIBUTION WIDTH 12.6 % (11.6-14.8); WHITE BLOOD COUNT 9.1 K/UL (4.8-10.8)
[2018-02-06 06:19] LABS: ALANINE AMINOTRANSFERASE 28 U/L (12-78); ALBUMIN 2.4 G/DL (3.4-5.0); ALBUMIN/GLOBULIN RATIO 0.4 (1.0-2.7); ALKALINE PHOSPHATASE 96 U/L (46-116); ANION GAP 14 mmol/L (5-15); ASPARTATE AMINO TRANSFERASE 34 U/L (15-37); BILIRUBIN,TOTAL 0.3 MG/DL (0.2-1.0); BLOOD UREA NITROGEN 60 mg/dL (7-18); CALCIUM 8.4 MG/DL (8.5-10.1); CARBON DIOXIDE 25 MMOL/L (21-32); CHLORIDE 96 MMOL/L (98-107); CREATININE 8.2 MG/DL (0.55-1.30); POTASSIUM 4.1 MMOL/L (3.5-5.1); SODIUM 134 MMOL/L (136-145)
--- NOTE | 2018-02-06 06:49 | General Progress Note ---
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 # UTI (lower urinary tract infection) with e.coli --> Urine cx++ # Diabetes Greatly appreciate consultation! Subjective Constitutional: Denies: no symptoms, chills, diaphoresis, fever, malaise, weakness, other HEENT: Denies: no symptoms, eye pain, blurred vision, tearing, double vision, ear pain, ear discharge, nose pain, nose congestion, throat pain, throat swelling, mouth pain, mouth swelling, other Cardiovascular: Denies: no symptoms, chest pain, edema, irregular heart rate, lightheadedness, palpitations, syncope, other Respiratory: Denies: no symptoms, cough, orthopnea, shortness of breath, SOB with excertion, SOB at rest, sputum, stridor, wheezing, other Gastrointestinal/Abdominal: Denies: no symptoms, abdomen distended, abdominal pain, black stools, tarry stools, blood in stool, constipated, diarrhea, difficulty swallowing, nausea, poor appetite, poor fluid intake, rectal bleeding , vomiting, other Neurologic/Psychiatric: Denies: no symptoms, anxiety, depressed, emotional problems, headache, numbness, paresthesia, pre-existing deficit, seizure, tingling, tremors, weakness, other Endocrine: Denies: no symptoms, excessive sweating, flushing, intolerance to cold, intolerance to heat, increased hunger, increased thirst, increased urine, unexplained weight gain, unexplained weight loss, other Hematologic/Lymphatic: Denies: no symptoms, anemia, easy bleeding, easy bruising, other Allergies: Coded Allergies: No Known Allergies (Unverified , 05/25/13) Subjective Pt resting in bed. No acute events. H/H stable. VS stable. Somewhat confused in am. Objective Last 24 Hour Vital Signs Date Time Temp Pulse Resp B/P (MAP) Pulse Ox O2 Delivery O2 Flow Rate FiO2 02/06/18 04:00 96.3 79 20 119/74 (89) 100 02/06/18 04:00 98.6 82 20 158/80 (106) 96 02/06/18 04:00 78 02/06/18 00:00 97.9 100 20 154/82 (106) 96 02/05/18 21:00 Nasal Cannula 2.0 02/05/18 20:00 98.1 82 20 158/86 (110) 96 02/05/18 20:00 82 02/05/18 16:00 96.3 75 20 142/79 (100) 97 02/05/18 16:00 80 02/05/18 12:00 78 02/05/18 12:00 97.1 78 20 178/81 (113) 95 02/05/18 09:57 149/76 02/05/18 09:00 96.8 70 20 149/76 (100) 96 02/05/18 09:00 Nasal Cannula 2.0 02/05/18 08:00 75 Intake and Output 02/05/18 02/06/18 19:00 07:00 Intake Total 120 ml Balance 120 ml Intake Oral 120 ml # Voids 2 Laboratory Tests 02/05/18 08:30: Sodium Level 136, Potassium Level 4.1, Chloride Level 97L, Carbon Dioxide Level 28, Anion Gap 12, Blood Urea Nitrogen 55H, Creatinine 7.5H, Estimat Glomerular Filtration Rate , Glucose Level 104, Calcium Level 8.4L, C-Reactive Protein, Quantitative 10.2H 02/06/18 05:20: Sodium Level 134L, Potassium Level 4.1, Chloride Level 96L, Carbon Dioxide Level 25, Anion Gap 14, Blood Urea Nitrogen 60H, Creatinine 8.2H, Estimat Glomerular Filtration Rate , Glucose Level 118H, Calcium Level 8.4L, White Blood Count 9.1, Red Blood Count 3.30L, Hemoglobin 10.4L, Hematocrit 30.8L, Mean Corpuscular Volume 93, Mean Corpuscular Hemoglobin 31.4H, Mean Corpuscular Hemoglobin Concent 33.7, Red Cell Distribution Width 12.6, Platelet Count 391, Mean Platelet Volume 5.1L, Neutrophils (%) (Auto) 69.4, Lymphocytes (%) (Auto) 16.3L, Monocytes (%) (Auto) 11.4H, Eosinophils (%) (Auto) 2.3, Basophils (%) ( Auto) 0.7, Phosphorus Level 6.0H, Magnesium Level 2.1, Total Bilirubin 0.3, Aspartate Amino Transf (AST/SGOT) 34, Alanine Aminotransferase (ALT/SGPT) 28, Alkaline Phosphatase 96, Total Protein 7.8, Albumin 2.4L, Globulin 5.4, Albumin/ Globulin Ratio 0.4L, Random Vancomycin Level 19.6 Height (Feet): 5 Height (Inches): 4.00 Weight (Pounds): 150 Objective General Appearance: no apparent distress, alert, non-toxic Head: normocephalic, atraumatic Eyes: bilateral eye normal inspection ENT: hearing grossly normal, normal pharynx, no angioedema, normal voice Neck: full range of motion, supple/symm Respiratory: chest non-tender, lungs clear, normal breath sounds Cardiovascular: regular rate, rhythm, no edema, no gallop Gastrointestinal: normal bowel sounds, non tender, soft, non-distended Rectal: deferred Musculoskeletal: normal range of motion, non-tender, calf tenderness Neurologic: alert, oriented x3, responsive Reflexes: 3+ knee (L), 3+ ankle (R) Skin: normal color, no rash, warm/dry, well hydrated Gigi Aguirre MD Feb 06, 2018 06:49
[2018-02-06] MEDS: Aspirin Baby 81mg ORAL SCH (08:38)
[2018-02-06] MEDS: Benazepril 10mg tab ORAL SCH (08:38)
[2018-02-06] MEDS: Heparin 5000 units/ml inj SUBQ SCH ×2 (09:00→20:43)
[2018-02-06] MEDS ORDERED: Cathflo Alteplase 2mg Inj INJ SCH (10:30)
--- NOTE | 2018-02-06 11:57 | Infectious Diseases Prog Note ---
Assessment/Plan Assessment/Plan A: E. coli sepsis E. 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 DM P; Continue Rocephin & Vancomycin in hospital At time of discharge PO Cipro X 5 days Subjective ROS Limited/Unobtainable: No Constitutional: Reports: no symptoms Respiratory: Reports: no symptoms Cardiovascular: Reports: no symptoms Gastrointestinal/Abdominal: Reports: no symptoms Genitourinary: Reports: no symptoms Allergies: Coded Allergies: No Known Allergies (Unverified , 05/25/13) Objective Vital Signs Last 24 Hour Vital Signs Date Time Temp Pulse Resp B/P (MAP) Pulse Ox O2 Delivery O2 Flow Rate FiO2 02/06/18 09:00 Nasal Cannula 2.0 02/06/18 08:38 153/78 02/06/18 08:00 75 02/06/18 08:00 96.6 75 18 153/78 (103) 98 02/06/18 04:00 96.3 79 20 119/74 (89) 100 02/06/18 04:00 98.6 82 20 158/80 (106) 96 02/06/18 04:00 78 02/06/18 00:00 97.9 100 20 154/82 (106) 96 02/05/18 21:00 Nasal Cannula 2.0 02/05/18 20:00 98.1 82 20 158/86 (110) 96 02/05/18 20:00 82 02/05/18 16:00 96.3 75 20 142/79 (100) 97 02/05/18 16:00 80 02/05/18 12:00 78 02/05/18 12:00 97.1 78 20 178/81 (113) 95 Height (Feet): 5 Height (Inches): 4.00 Weight (Pounds): 150 General Appearance: no acute distress HEENT: mucous membranes moist Respiratory/Chest: lungs clear Cardiovascular: normal rate, other - Femoral HD line Abdomen: soft, non tender Neurologic/Psychiatric: alert, responsive Laboratory Tests Test 02/06/18 05:20 White Blood Count 9.1 K/UL (4.8-10.8) Red Blood Count 3.30 M/UL (4.70-6.10) L Hemoglobin 10.4 G/DL (14.2-18.0) L Hematocrit 30.8 % (42.0-52.0) L Mean Corpuscular Volume 93 FL (80-99) Mean Corpuscular Hemoglobin 31.4 PG (27.0-31.0) H Mean Corpuscular Hemoglobin Concent 33.7 G/DL (32.0-36.0) Red Cell Distribution Width 12.6 % (11.6-14.8) Platelet Count 391 K/UL (150-450) Mean Platelet Volume 5.1 FL (6.5-10.1) L Neutrophils (%) (Auto) 69.4 % (45.0-75.0) Lymphocytes (%) (Auto) 16.3 % (20.0-45.0) L Monocytes (%) (Auto) 11.4 % (1.0-10.0) H Eosinophils (%) (Auto) 2.3 % (0.0-3.0) Basophils (%) (Auto) 0.7 % (0.0-2.0) Sodium Level 134 MMOL/L (136-145) L Potassium Level 4.1 MMOL/L (3.5-5.1) Chloride Level 96 MMOL/L (98-107) L Carbon Dioxide Level 25 MMOL/L (21-32) Anion Gap 14 mmol/L (5-15) Blood Urea Nitrogen 60 mg/dL (7-18) H Creatinine 8.2 MG/DL (0.55-1.30) H Estimat Glomerular Filtration Rate mL/min (>60) Glucose Level 118 MG/DL (74-106) H Calcium Level 8.4 MG/DL (8.5-10.1) L Phosphorus Level 6.0 MG/DL (2.5-4.9) H Magnesium Level 2.1 MG/DL (1.8-2.4) Total Bilirubin 0.3 MG/DL (0.2-1.0) Aspartate Amino Transf (AST/SGOT) 34 U/L (15-37) Alanine Aminotransferase (ALT/SGPT) 28 U/L (12-78) Alkaline Phosphatase 96 U/L (46-116) Total Protein 7.8 G/DL (6.4-8.2) Albumin 2.4 G/DL (3.4-5.0) L Globulin 5.4 g/dL Albumin/Globulin Ratio 0.4 (1.0-2.7) L Random Vancomycin Level 19.6 ug/mL Current Medications Medications (Trade) Dose Ordered Sig/Stephany Route PRN Reason Start Time Stop Time Status Last Admin Dose Admin Acetaminophen (Tylenol) 650 mg Q4H PRN ORAL Mild Pain/Temp > 100.5 02/01/18 18:00 03/03/18 17:59 02/04/18 21:46 Alteplase, Recombinant (Cathflo) 4 mg ONCE INJ 02/06/18 10:30 02/06/18 12:00 02/06/18 10:41 Aspirin (ASA) 81 mg DAILY ORAL 02/03/18 09:00 03/05/18 08:59 02/06/18 08:38 Benazepril HCl (Lotensin) 10 mg DAILY ORAL 02/02/18 09:00 03/04/18 08:59 02/06/18 08:38 Ceftriaxone Sodium 1 gm/ Dextrose 55 ml @ 110 mls/hr Q24H IVPB 02/04/18 11:00 02/11/18 10:59 02/05/18 11:53 Dextrose (Dextrose 50%) 25 ml Q30M PRN IV Hypoglycemia 02/01/18 18:30 03/03/18 18:29 Dextrose (Dextrose 50%) 50 ml Q30M PRN IV Hypoglycemia 02/01/18 18:30 03/03/18 18:29 Finasteride (Proscar) 5 mg DAILY ORAL 02/02/18 09:00 03/04/18 08:59 02/06/18 08:39 Folic Acid (Folate) 1 mg DAILY ORAL 02/04/18 09:00 03/06/18 08:59 02/06/18 08:39 Gemfibrozil (Lopid) 600 mg BID ORAL 02/01/18 18:00 03/03/18 17:59 02/06/18 08:38 Heparin Sodium (Porcine) (Heparin 5000 units/ml) 5,000 units EVERY 12 HOURS SUBQ 02/01/18 21:00 03/03/18 20:59 02/04/18 21:47 Heparin Sodium (Porcine) (Heparin Sod 1000 units/ml 10ml) 2,000 unit ONCE PRN INJ Radiology Procedure 02/04/18 14:45 02/06/18 14:44 Heparin Sodium/ Sodium Chloride (Heparin 2000 units/Ns 1000ml premix) 2,000 unit ONCE PRN INJ Radiology Procedure 02/04/18 14:45 02/06/18 14:44 Insulin Aspart (NovoLOG) BEFORE MEALS AND HS SUBQ 02/01/18 21:00 03/03/18 20:59 02/05/18 21:14 Lidocaine/ Epinephrine (Xylocaine 2%/ Epi MPF) 60 ml ONCE PRN INJ for Radiology Procedure 02/04/18 14:45 02/06/18 14:44 Pantoprazole (Protonix) 40 mg BID ORAL 02/02/18 18:00 03/04/18 08:59 02/06/18 08:38 Tamsulosin HCl (Flomax) 0.4 mg BEDTIME ORAL 02/01/18 21:00 03/03/18 20:59 02/05/18 21:13 Vancomycin HCl (Vanco rx to dose) 1 ea DAILY PRN MISC Per rx protocol 02/03/18 11:30 03/05/18 11:29 Vancomycin/Sodium Chloride 250 ml @ 166.667 mls/hr ONCE ONCE IVPB 02/06/18 18:00 02/06/18 19:29 Boyd Tee MD Feb 06, 2018 11:57
--- NOTE | 2018-02-06 13:41 | Nephrology Progress Note ---
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 Plan femoral catheter can not be used today for dialysis - malfunctions dialysed 02/05/12 via groin cath due a permacath and dialysis and discharge discussed with RN Antibiotics per ID keep bp in check Subjective ROS Limited/Unobtainable: No Constitutional: Reports: malaise Objective Objective Last 24 Hour Vital Signs Date Time Temp Pulse Resp B/P (MAP) Pulse Ox O2 Delivery O2 Flow Rate FiO2 02/06/18 09:00 Nasal Cannula 2.0 02/06/18 08:38 153/78 02/06/18 08:00 75 02/06/18 08:00 96.6 75 18 153/78 (103) 98 02/06/18 04:00 96.3 79 20 119/74 (89) 100 02/06/18 04:00 98.6 82 20 158/80 (106) 96 02/06/18 04:00 78 02/06/18 00:00 97.9 100 20 154/82 (106) 96 02/05/18 21:00 Nasal Cannula 2.0 02/05/18 20:00 98.1 82 20 158/86 (110) 96 02/05/18 20:00 82 02/05/18 16:00 96.3 75 20 142/79 (100) 97 02/05/18 16:00 80 Intake and Output 02/05/18 02/06/18 19:00 07:00 Intake Total 120 ml Balance 120 ml Intake Oral 120 ml # Voids 2 Laboratory Tests 02/06/18 05:20: White Blood Count 9.1, Red Blood Count 3.30L, Hemoglobin 10.4L, Hematocrit 30.8L , Mean Corpuscular Volume 93, Mean Corpuscular Hemoglobin 31.4H, Mean Corpuscular Hemoglobin Concent 33.7, Red Cell Distribution Width 12.6, Platelet Count 391, Mean Platelet Volume 5.1L, Neutrophils (%) (Auto) 69.4, Lymphocytes ( %) (Auto) 16.3L, Monocytes (%) (Auto) 11.4H, Eosinophils (%) (Auto) 2.3, Basophils (%) (Auto) 0.7, Sodium Level 134L, Potassium Level 4.1, Chloride Level 96L, Carbon Dioxide Level 25, Anion Gap 14, Blood Urea Nitrogen 60H, Creatinine 8.2H, Estimat Glomerular Filtration Rate , Glucose Level 118H, Calcium Level 8.4L, Phosphorus Level 6.0H, Magnesium Level 2.1, Total Bilirubin 0.3, Aspartate Amino Transf (AST/SGOT) 34, Alanine Aminotransferase (ALT/SGPT) 28, Alkaline Phosphatase 96, Total Protein 7.8, Albumin 2.4L, Globulin 5.4, Albumin/Globulin Ratio 0.4L, Random Vancomycin Level 19.6 Height (Feet): 5 Height (Inches): 4.00 Weight (Pounds): 150 General Appearance: no apparent distress Cardiovascular: normal rate Respiratory/Chest: lungs clear Abdomen: soft Objective no change Mikey Brandt MD Feb 06, 2018 13:41
[2018-02-06] MEDS: cefTRIAXone 1 GM in D5W 55 ML IVPB SCH (13:44)
[2018-02-06] MEDS ORDERED: Heparin 2000 units/Ns 1000ml 1,000 ML ONE (14:22)
[2018-02-06] MEDS ORDERED: Heparin Sod 1000 units/ml 10ml ONE (14:22)
[2018-02-06] MEDS ORDERED: Heparin 2000 units/Ns 1000ml INJ SCH (14:45)
[2018-02-06] MEDS ORDERED: Heparin Sod 1000 units/ml 10ml INJ SCH (14:45)
[2018-02-06] MEDS ORDERED: Lidocaine 2% 20mg/ml/Epi 0.005mg/ml 20ml vial INJ SCH (14:45)
--- NOTE | 2018-02-06 15:26 | Pre-Procedure Note/Attestation ---
Pre-Procedure Note/Attestation Complete Prior to Procedure Planned Procedure: not applicable Procedure Narrative: Permacath Indications for Procedure Pre-Operative Diagnosis: Renal failure Attestation I attest that I discussed the nature of the procedure; its benefits; risks and complications; and alternatives (and the risks and benefits of such alternatives ), prior to the procedure, with the patient (or the patient's legal computer help desk representative). I attest that, if there was a reasonable possibility of needing a blood transfusion, the patient (or the patient's legal computer help desk representative) was given the [facility] standardized written summary, pursuant to the Brenden Adina Blood Safety Act ([place] Health and Safety Code # 1645, as amended). I attest that I re-evaluated the patient just prior to the surgery and that there has been no change in the patient's H&P, except as documented below: Discussed with pt's. daughter, Padmini, by phone Michoacano Rankin MD Feb 06, 2018 15:26
--- NOTE | 2018-02-06 15:57 | Brief Operative Note ---
Immediate Post Operative Note Operative Note Pre-op Diagnosis: Renal failure Procedure: R VERONICA murray Post-op Diagnosis: same as pre-op Surgeon: Deena Cleary Specimen: none Complications: none Condition: stable Fluids: none Estimated Blood Loss: none Drains: none Implant(s) used?: Yes - 19 cm BioFlo Michoacano Hargrove MD Feb 06, 2018 15:57
--- NOTE | 2018-02-06 16:37 | Diagnostic Imaging Report ---
Indications: Needs long-term dialysis access Technique: Informed consent obtained prior to commencement of the procedure from patient's daughter. Procedural timeout performed. Total sterile technique, including sterile probe cover and sterile gel, sterile gloves, hand hygiene, hat, mask, sterile gown, large sterile drape, and preparation with 2% chlorhexidine utilized. Local anesthesia with 1% lidocaine. Under real-time ultrasound guidance, puncture right external jugular vein using 21-gauge micropuncture needle, passage 0.018 guidewire, exchange for 5 Burkinan micropuncture introducer. The guidewire was used to measure the appropriate catheter length, and was removed. The sheath was left in place. The subcutaneous tract was then anesthetized with 1% lidocaine. A chest dermatotomy was made . The tunneling device was used to pull a 14.5 Burkinan 19 cm BioFlo catheter through the subcutaneous tunnel to the neck dermatotomy. A guidewire was passed through the neck introducer into the inferior vena cava, and serial dilators were passed over it, followed by the introduction of a 14.5 Burkinan AirGuard peel-away sheath. The catheter was then introduced into the sheath, the peel-away sheath was removed. Digital radiograph documents satisfactory catheter tip position in the high right atrium, no kinking at the insertion site. Both catheter ports aspirated and flushed. Catheter was fixed to the skin. Patient tolerated procedure well without immediate complication. Total fluoroscopy time 66.8 seconds. Total dose area product [id number] mGycm2 Total number of images-one Comparison: None. Findings: Completion radiograph documents satisfactory position and course of the catheter, catheter tip at the high right atrium . Impression: Successful placement of right external jugular tunneled dialysis catheter, as described above
--- NOTE | 2018-02-06 17:24 | General Progress Note ---
Progress Note Progress Note Patient seen and examined ESRD on HD Thrombosed left arm av shunt with clotted stent grafts Hand warm intact pulses Rec Permcath for HD Ok for d/c per vascular point Will do fistulogram interventions as outpatient and need for shunt revision d/w pt and daughter d/w pmd and renal d/w nurse at bedside Deep Monson MD Feb 06, 2018 17:24
[2018-02-06] MEDS ORDERED: Vancomycin 750mg/NS 250ml IVPB ONE (18:00)
[2018-02-06] MEDS: Tamsulosin 0.4mg cap ORAL SCH (20:43)
--- NOTE | 2018-02-06 21:17 | General Progress Note ---
Assessment/Plan Problem List: (1) Diabetes ICD Codes: E11.9 - Type 2 diabetes mellitus without complications SNOMED: 05210444 (2) Sepsis ICD Codes: A41.9 - Sepsis, unspecified organism SNOMED: 97029117 (3) CVA (cerebral vascular accident) ICD Codes: I63.9 - Cerebral infarction, unspecified SNOMED: 750971927 (4) UTI (lower urinary tract infection) ICD Codes: N39.0 - Urinary tract infection, site not specified SNOMED: 8842868 (5) ESRD (end stage renal disease) ICD Codes: N18.6 - End stage renal disease SNOMED: 17124684 (6) Hypotension ICD Codes: I95.9 - Hypotension, unspecified SNOMED: 82944577 (7) ACS (acute coronary syndrome) ICD Codes: I24.9 - Acute ischemic heart disease, unspecified SNOMED: 003815682 (8) Chest pain ICD Codes: R07.9 - Chest pain, unspecified SNOMED: 88389041 Status: progressing Assessment/Plan needs snf for iv abx permacath placement esrd on hd h/o cva uti hypotension improved r/o acs permacath per vascular/renal today in groin needs iv abx Subjective ROS Limited/Unobtainable: Yes Allergies: Coded Allergies: No Known Allergies (Unverified , 05/25/13) Objective Last 24 Hour Vital Signs Date Time Temp Pulse Resp B/P (MAP) Pulse Ox O2 Delivery O2 Flow Rate FiO2 02/06/18 16:00 103 18 160/70 (100) 100 02/06/18 16:00 100 02/06/18 15:55 101 18 165/76 (105) 98 02/06/18 15:50 103 18 172/74 (106) 98 02/06/18 15:45 89 18 185/77 (113) 97 02/06/18 15:40 86 18 191/81 (117) 100 02/06/18 15:35 81 18 190/83 (118) 99 02/06/18 14:29 77 16 02/06/18 12:00 97.2 77 18 154/78 (103) 98 02/06/18 12:00 77 02/06/18 09:00 Nasal Cannula 2.0 02/06/18 08:38 153/78 02/06/18 08:00 75 02/06/18 08:00 96.6 75 18 153/78 (103) 98 02/06/18 04:00 96.3 79 20 119/74 (89) 100 02/06/18 04:00 98.6 82 20 158/80 (106) 96 02/06/18 04:00 78 02/06/18 00:00 97.9 100 20 154/82 (106) 96 Intake and Output 02/05/18 02/06/18 19:00 07:00 Intake Total 120 ml Balance 120 ml Intake Oral 120 ml # Voids 2 Laboratory Tests 02/06/18 05:20: White Blood Count 9.1, Red Blood Count 3.30L, Hemoglobin 10.4L, Hematocrit 30.8L , Mean Corpuscular Volume 93, Mean Corpuscular Hemoglobin 31.4H, Mean Corpuscular Hemoglobin Concent 33.7, Red Cell Distribution Width 12.6, Platelet Count 391, Mean Platelet Volume 5.1L, Neutrophils (%) (Auto) 69.4, Lymphocytes ( %) (Auto) 16.3L, Monocytes (%) (Auto) 11.4H, Eosinophils (%) (Auto) 2.3, Basophils (%) (Auto) 0.7, Sodium Level 134L, Potassium Level 4.1, Chloride Level 96L, Carbon Dioxide Level 25, Anion Gap 14, Blood Urea Nitrogen 60H, Creatinine 8.2H, Estimat Glomerular Filtration Rate , Glucose Level 118H, Calcium Level 8.4L, Phosphorus Level 6.0H, Magnesium Level 2.1, Total Bilirubin 0.3, Aspartate Amino Transf (AST/SGOT) 34, Alanine Aminotransferase (ALT/SGPT) 28, Alkaline Phosphatase 96, Total Protein 7.8, Albumin 2.4L, Globulin 5.4, Albumin/Globulin Ratio 0.4L, Random Vancomycin Level 19.6 Height (Feet): 5 Height (Inches): 4.00 Weight (Pounds): 150 Cardiovascular: normal rate Respiratory/Chest: lungs clear Abdomen: soft Dolly Narvaez MD Feb 06, 2018 21:17
[2018-02-06] MEDS ORDERED: CIPRO500 MG PO (21:57)
--- NOTE | 2018-02-06 22:30 | Consultation ---
DATE OF CONSULTATION: 02/02/2018 CARDIOLOGY CONSULTATION: CONSULTING PHYSICIAN: Dariel Alvarado M.D. REFERRING PHYSICIAN: Dolly Narvaez M.D. REASON FOR CONSULTATION: Management of near-syncope. HISTORY OF PRESENT ILLNESS: The patient is a very unfortunate 82-year-old gentleman with history of hypertension, diabetes mellitus, end-stage renal disease on hemodialysis who presented to the hospital complaining of chest pain, generalized weakness, and an episode of near syncope that occurred a day before his arrival to this facility. Apparently, the patient's blood pressure was very low according to the patient's granddaughter who is also the caregiver. Because of that, the patient declined to have dialysis. The patient continued to feeling sick and decided to come to the hospital. At the time of arrival to the hospital, initial blood pressure was 124/62 mmHg and pulse of 79. Laboratory finding revealed leukocytosis with WBC count of 13.0 and a left shift. The patient's first troponin I level was 0.022 in the emergency department. The patient was then admitted to telemetry for further evaluation and management. In the emergency department, the patient received 500 mL of NS bolus, which normalized the blood pressure. Broad-spectrum antibiotic was also initiated in the emergency department. PAST MEDICAL HISTORY: 1. Hypertension. 2. Diabetes mellitus. 3. End-stage renal disease, on 3 days weekly dialysis. 4. History of CVA. 5. History of hypercholesterolemia. ALLERGIES: No known drug allergies. PAST SURGICAL HISTORY: AV shunt placement. PAST FAMILY HISTORY: No premature coronary artery disease in first-degree relatives. SOCIAL HISTORY: Denies history of tobacco, alcohol, or illicit drug use. REVIEW OF SYSTEMS: HEENT: Denies any headache, dizziness, or lightheadedness. CONSTITUTIONAL: Had some malaise, but no fever, chills, or night sweats. CARDIOVASCULAR: Had chest pain intermittently with hypotension. Had no shortness of breath, PND, orthopnea, or leg swelling. PULMONARY: Denies any cough, hemoptysis, or wheezing. GASTROINTESTINAL: No nausea, vomiting, diarrhea, constipation, abdominal pain, or GI bleed. GENITOURINARY: On hemodialysis 3 days a week. NEUROLOGY: Denies any motor dysfunction, sensory deficit, or altered speech at this time. Has history of stroke in the past. MEDICATIONS: List of medications include amlodipine 2.5 mg p.o. daily, benazepril 20 mg p.o. daily, vitamin D 50,000 units once a week, clonidine 0.1 mg q.4 h. p.r.n. high blood pressure, finasteride 5 mg p.o. daily, gemfibrozil 600 mg twice daily, heparin sodium 5000 units subcutaneous q.12 hours, NovoLog insulin sliding scale, Levemir insulin 5 units subcutaneous every 12 hours, and tamsulosin 0.4 mg p.o. at bedtime. PHYSICAL EXAMINATION: VITAL SIGNS: Blood pressure at the time of arrival to the hospital was 124/62, respirations 20, pulse of 79, temperature 98.2 degrees Fahrenheit, and O2 saturation 100% on room air. GENERAL: This is a very unfortunate 82-year-old gentleman, in no apparent respiratory distress. Alert and oriented x4. HEENT: Atraumatic and normocephalic. Anicteric. Pupils are equal, round, and reactive to light and accommodation. Extraocular muscles intact. Conjunctival pallor. NECK: JVP less than 5 centimeter. No carotid bruit. CARDIOVASCULAR: Normal S1, S2. Regular rate and rhythm. No murmurs, gallops, or rubs. PMI is at fourth intercostal space in the midclavicular line. LUNGS: Clear to auscultation bilaterally. ABDOMEN: Soft, nontender, and nondistended. No hepatosplenomegaly. Positive bowel sounds. EXTREMITIES: No evidence of edema, clubbing, or cyanosis. There is left upper extremity AV fistula with positive thrill and bruit. Lower extremity with no evidence of edema, clubbing, or cyanosis. IMAGING STUDIES: Chest x-ray showed presence of venous stent in the left axilla, otherwise normal cardiac silhouette. No acute cardiopulmonary disease. LABORATORY FINDINGS: Sodium 134, potassium is 3.9, chloride 96, bicarbonate 26, BUN of 60, creatinine 7.7 glucose is 128, and calcium is 8.3. Troponin 0.022. WBC 13.9, hemoglobin of 11.5, hematocrit 34.3, and platelet count 280. INR is 1.0. A 2D echocardiography done in this facility showed normal LV systolic function with LVEF of about 55 to 60%, mild ventricular hypertrophy, mild left ventricular enlargement, moderate aortic regurgitation, mitral regurgitation, right ventricular systolic pressure measured at 28 mmHg. ASSESSMENT AND PLAN: The patient is a very unfortunate 82-year-old gentleman, seen in Cardiology consultation. 1. Chest pain, atypical in this patient most likely secondary to an episode of hypotension, which could be secondary to excessive fluid removal during dialysis. The patient responded well to 500 mL of normal saline IV bolus in the emergency department. First troponin I level is within normal limits. A 12-lead electrocardiogram shows no evidence of ischemic changes. I would continue with medical therapy including aspirin and statin and hemodynamic management. 2. Hypotension as corrected with NS (normal saline) 500 mL in the emergency department, most likely secondary to excessive fluid removal during hemodialysis. Other causes could be septic shock as the patient shows some leukocytosis. One has to look for rule out sepsis. We will continue with daily CBC, perhaps blood cultures. The patient was afebrile at the time of arrival to the hospital. 3. History of hyperlipidemia. We will obtain a fasting lipid panel. 4. Diabetes mellitus. The patient will benefit from combination of aspirin and statin. 5. History of hypertension. Currently, all the blood pressure medications are on hold due to hypotension. 6. End-stage renal disease, on hemodialysis on Mondays, Wednesdays, and Fridays. 7. History of cerebrovascular accident. Again, the patient will benefit from combination of aspirin and statins. 2D echocardiography of note showed normal LV systolic function with LVEF approximately 55%. I would like to thank, Dr. Narvaez, for the courtesy of this consultation. Dariel Alvarado M.D. DR: DEBORAH JOB#: [id number] CC:
[2018-02-06] MEDS ORDERED: ELIQUIS2.5 MG PO (22:52)
[2018-02-06] MEDS ORDERED: ASPIRIN81 MG ORAL (22:57)
[2018-02-06] MEDS ORDERED: DUTASTERIDE0.5 MG PO (22:58)
[2018-02-06] MEDS ORDERED: ATORVASTATIN CA20 MG ORAL (22:58)
--- NOTE | 2018-02-06 23:37 | Cardiology Progress Note ---
Assessment/Plan Assessment/Plan 1. Probably non-cardiac chest pain, Trop I level is normal, 12-lead electrocardiogram shows no evidence of ischemic changes, continue with medical therapy including B-blockers, aspirin and statin 2. Hypotension with sinus tachycardia, most likely secondary to excessive fluid removal, responded well to IV NS bolus. 3. History of hyperlipidemia. 4. Diabetes mellitus, benefit from combination of aspirin and statin. 5. History of hypertension. 6. End-stage renal disease, on hemodialysis on Mondays, Wednesdays, and Fridays. 7. History of cerebrovascular accident, ASA, statin use regardless of LDL level. Subjective Subjective Sinus tachycardia at rate of 103. Objective Last 24 Hour Vital Signs Date Time Temp Pulse Resp B/P (MAP) Pulse Ox O2 Delivery O2 Flow Rate FiO2 02/06/18 21:00 Nasal Cannula 2.0 02/06/18 16:00 103 18 160/70 (100) 100 02/06/18 16:00 100 02/06/18 15:55 101 18 165/76 (105) 98 02/06/18 15:50 103 18 172/74 (106) 98 02/06/18 15:45 89 18 185/77 (113) 97 02/06/18 15:40 86 18 191/81 (117) 100 02/06/18 15:35 81 18 190/83 (118) 99 02/06/18 14:29 77 16 02/06/18 12:00 97.2 77 18 154/78 (103) 98 02/06/18 12:00 77 02/06/18 09:00 Nasal Cannula 2.0 02/06/18 08:38 153/78 02/06/18 08:00 75 02/06/18 08:00 96.6 75 18 153/78 (103) 98 02/06/18 04:00 96.3 79 20 119/74 (89) 100 02/06/18 04:00 98.6 82 20 158/80 (106) 96 02/06/18 04:00 78 02/06/18 00:00 97.9 100 20 154/82 (106) 96 Intake and Output 02/05/18 02/06/18 19:00 07:00 Intake Total 120 ml Balance 120 ml Intake Oral 120 ml # Voids 2 2D Echo: LVEF 55%, Mild LAE/LVH, Mild AR/MR, RVSP 28 mmHg Laboratory Tests Test 02/06/18 05:20 White Blood Count 9.1 K/UL (4.8-10.8) Red Blood Count 3.30 M/UL (4.70-6.10) L Hemoglobin 10.4 G/DL (14.2-18.0) L Hematocrit 30.8 % (42.0-52.0) L Mean Corpuscular Volume 93 FL (80-99) Mean Corpuscular Hemoglobin 31.4 PG (27.0-31.0) H Mean Corpuscular Hemoglobin Concent 33.7 G/DL (32.0-36.0) Red Cell Distribution Width 12.6 % (11.6-14.8) Platelet Count 391 K/UL (150-450) Mean Platelet Volume 5.1 FL (6.5-10.1) L Neutrophils (%) (Auto) 69.4 % (45.0-75.0) Lymphocytes (%) (Auto) 16.3 % (20.0-45.0) L Monocytes (%) (Auto) 11.4 % (1.0-10.0) H Eosinophils (%) (Auto) 2.3 % (0.0-3.0) Basophils (%) (Auto) 0.7 % (0.0-2.0) Sodium Level 134 MMOL/L (136-145) L Potassium Level 4.1 MMOL/L (3.5-5.1) Chloride Level 96 MMOL/L (98-107) L Carbon Dioxide Level 25 MMOL/L (21-32) Anion Gap 14 mmol/L (5-15) Blood Urea Nitrogen 60 mg/dL (7-18) H Creatinine 8.2 MG/DL (0.55-1.30) H Estimat Glomerular Filtration Rate mL/min (>60) Glucose Level 118 MG/DL (74-106) H Calcium Level 8.4 MG/DL (8.5-10.1) L Phosphorus Level 6.0 MG/DL (2.5-4.9) H Magnesium Level 2.1 MG/DL (1.8-2.4) Total Bilirubin 0.3 MG/DL (0.2-1.0) Aspartate Amino Transf (AST/SGOT) 34 U/L (15-37) Alanine Aminotransferase (ALT/SGPT) 28 U/L (12-78) Alkaline Phosphatase 96 U/L (46-116) Total Protein 7.8 G/DL (6.4-8.2) Albumin 2.4 G/DL (3.4-5.0) L Globulin 5.4 g/dL Albumin/Globulin Ratio 0.4 (1.0-2.7) L Random Vancomycin Level 19.6 ug/mL Objective HEENT: Atraumatic and normocephalic. Anicteric. Pupils are equal, round, and reactive to light and accommodation. Extraocular muscles intact. Conjunctival pallor. NECK: JVP less than 5 centimeter. No carotid bruit. CARDIOVASCULAR: Normal S1, S2. Regular rate and rhythm. Tachycardic. No murmurs, gallops, or rubs. PMI is at fourth intercostal space in the midclavicular line. LUNGS: Clear to auscultation bilaterally. ABDOMEN: Soft, nontender, and nondistended. No hepatosplenomegaly. Positive bowel sounds. EXTREMITIES: No evidence of edema, clubbing, or cyanosis. There is left upper extremity AV fistula with positive thrill and bruit. Dariel Alvarado MD Feb 06, 2018 23:37
[2018-02-06] MEDS ORDERED: Atorvastatin 20mg tab ORAL SCH (23:45)
--- NOTE | 2018-02-07 | Consultation ---
DATE OF CONSULTATION: 02/06/2018 VASCULAR SURGERY CONSULTATION CONSULTING PHYSICIAN: Deep Monson M.D. REFERRING PHYSICIAN: Mikey Brandt M.D. REASON FOR EVALUATION: Clotted left arm AV shunt. HISTORY OF PRESENT ILLNESS: This is an 82-year-old male, who is well known to our vascular service. The patient suffers from end-stage renal failure, on hemodialysis. The patient had the left cephalic vein AV shunt with stent grafts in the past presented with thrombosis. The patient is currently on dialysis through a femoral Breezy catheter. Vascular surgery is consulted for further evaluation. PAST MEDICAL HISTORY: As above. History of hypertension, end-stage renal failure, on hemodialysis, and dementia. MEDICATIONS: See attached MAR. ALLERGIES: No known drug allergies. SOCIAL HISTORY: Unobtainable. FAMILY HISTORY: Unobtainable. REVIEW OF SYSTEMS: Unobtainable. PHYSICAL EXAMINATION: GENERAL: The patient is currently awake and daughter is at bedside. VITAL SIGNS: Afebrile at 97, heart rate 78, blood pressure 142/68, and respirations 16. EXTREMITIES: The patient has palpable radial pulses. Left arm AV shunt has an absent thrill. There is no edema. SKIN: Clear, dry, and intact. LUNGS: Clear to auscultation. HEART: Regular rate and rhythm. ABDOMEN: Soft and nontender. EXTREMITIES: He has palpable femoral pulses. Right femoral Breezy catheter is in place. Feet are warm with intact foot Dopplers bilaterally. IMPRESSION: 1. End-stage renal failure on hemodialysis with thrombosed left arm AV shunt with cephalic vein stent graft. 2. End-stage renal failure requiring access for hemodialysis. 3. History of hypertension. 4. History of dementia. PLAN AND RECOMMENDATIONS: 1. Tunneled Permacatheter as per Radiology. 2. Dialysis through the Perma catheter. The patient is cleared for discharge from Vascular Surgery point. We will schedule the patient for outpatient left arm AV shunt fistulogram and thrombectomy and intervention. The above was discussed at length with the patient's daughter. Deep Monson M.D. DR: MARGIE JOB#: [id number] CC: Deep Monson M.D.; Fax#: [phone] Mikey Brandt M.D. [facility]
--- NOTE | 2018-02-07 12:10 | Discharge Summary ---
Discharge Summary Discharge Summary _ DATE OF ADMISSION: 02/01/2018 DATE OF DISCHARGE: 02/06/2018 DISCHARGED BY: Dr. Dolly Narvaez CONSULTANTS: Dr. Dariel Aguirre [facility] HOSPITAL COURSE: Patient is an 82-year-old male, with history of insulin-dependent diabetes mellitus, hypertension and end-stage renal disease on hemodialysis, presented to ED with complaints of chest pain, generalized weakness and near syncope chest pain was located centrally, symptoms were moderately severe and intermittent. His blood pressure was noted to be on the low side according to granddaughter who was at bedside. He felt too sick to have hemodialysis. On evaluation at ED, patient was hypotensive. Blood work showed leukocytosis, WBC was elevated to 13.9, hemoglobin 11.5, hematocrit 34. Creatinine was elevated to 7.7, BUN 60. Troponin was negative. Urinalysis showed urine WBC too many to count, urine RBC too many to count. He was given small IV bolus 500 mL NS. Blood pressure normalized. He was admitted for evaluation of chest pain, rule out ACS. He developed fever. ID was consulted. There was consideration of gram- negative sepsis, likely secondary to UTI, possible secondary to hemodialysis line infection. He was started on Zosyn. Dr. Mikey Brandt was consulted for inpatient hemodialysis management. AV graft was nonfunctional. He had a temporary catheter inserted. On 02/06/2018, he underwent successful placement of right external jugular tunneled dialysis catheter. He was followed by dozer operator. Hemoglobin was monitored. Anemia workup showed elevated ferritin levels. Patient did not require any iron supplementation. He was advised to continue folic acid daily. Patient had cognitive impairment and has anxiety disorder. He was seen by psychiatrist. He was diagnosed with vascular dementia, he placed on Ativan as needed. Vascular surgeon was consulted for evaluation of clotted AV shunt on the left arm. Patient had left cephalic vein AV shunt with stent grafts in the past. He has a femoral Breezy catheter. He was recommended dialysis through permacath. Patient was advised for outpatient AV shunt fistulogram and thrombectomy and intervention. Patient probably had noncardiac chest pain, moaning level was normal, twelve- lead electrocardiogram did not show any evidence of ischemic changes he was continued with medical therapy. Troponin was negative. EKG did not show any evidence of ischemic changes. He was given aspirin and statin. He had a prior echocardiogram that showed normal LV systolic function with LVEF 55%. Blood culture showed growth of E. coli. Urine culture with E. coli. He was given Rocephin and IV vancomycin. He was eventually cleared for discharge home to continue p.o. antibiotics. FINAL DIAGNOSES: E. coli sepsis due to E. coli UTI Probable noncardiac chest pain, chest pain most likely secondary to an episode of hypotension Hyperlipidemia Diabetes mellitus Hypertension End-stage renal disease on hemodialysis Old CVA Hypotension Urinary tract infection Malfunctioning/occluded AV graft Status post insertion of tunneled permacath Dementia DISPOSITION: Patient was discharged home. DISCHARGE MEDICATIONS: Refer to Discharge Medication List. DISCHARGE INSTRUCTIONS: Follow-up in a week. I have been assigned to dictate discharge summary on this account, and I was not involved in the patient's management. Priscilla Arias NP Feb 07, 2018 12:10
== END 2018-02-06 23:15 | disposition home or self-care (01) | DRG 871 ==
LOC: EMR 13:15 → 2E 13:18 → EDBEDREQSVC 14:22 → EDBEDREQ 14:22 → EDBEDREQTM 14:22 → EDBEDREQ 14:40
PROC: 5A1D70Z Performance of Urinary Filtration, Intermittent, Less than 6 Hours Per Day (ICD-10-PCS; principal; 2018-02-06)
PROC: 0JH63XZ Insertion of Tunneled Vascular Access Device into Chest Subcutaneous Tissue and Fascia, Percutaneous Approach (ICD-10-PCS; principal; 2018-02-06)
PROC: 05HP33Z Insertion of Infusion Device into Right External Jugular Vein, Percutaneous Approach (ICD-10-PCS; principal; 2018-02-06)
DX: A41.51 Sepsis due to Escherichia coli [E. coli] (principal); N18.6 End stage renal disease; N39.0 Urinary tract infection, site not specified; I12.0 Hypertensive chronic kidney disease with stage 5 chronic kidney disease or end stage renal disease; T82.318A Breakdown (mechanical) of other vascular grafts, initial encounter; Z99.2 Dependence on renal dialysis; E11.9 Type 2 diabetes mellitus without complications; Z79.4 Long term (current) use of insulin; F01.50 Vascular dementia, unspecified severity, without behavioral disturbance, psychotic disturbance, mood disturbance, and anxiety; F41.9 Anxiety disorder, unspecified; R07.89 Other chest pain; E78.5 Hyperlipidemia, unspecified; Z86.73 Personal history of transient ischemic attack (TIA), and cerebral infarction without residual deficits; Y84.1 Kidney dialysis as the cause of abnormal reaction of the patient, or of later complication, without mention of misadventure at the time of the procedure; Z79.82 Long term (current) use of aspirin; I35.1 Nonrheumatic aortic (valve) insufficiency; I34.0 Nonrheumatic mitral (valve) insufficiency; D63.8 Anemia in other chronic diseases classified elsewhere
CPT/HCPCS: 36415; 36569; 71045; 76000; 76937; 80048; 80053; 80061; 80202; 81003; 82607; 82728; 82746; 82962; 83036; 83540; 83550; 83605; 83735; 83880; 84100; 84443; 84484; 84550; 85025; 85610; 85730; 86140; 87040; 87081; 87086; 87181; 93005; 93306; 93925; 96365; 96366; 96367; 99291; J1815

== ENCOUNTER 2019-03-08 01:00 | Inpatient (IN) | payer MEDICARE, OTHER ==
[~2019-03-08] VITALS: Ht 165.1 cm; Wt 59.0 kg
[2019-03-08] VITALS (8 sets, daily range): BP systolic 99–135; BP diastolic 48–63
[~2019-03-08 01:00] MED LIST changes: +ASPIRIN81 MG ORAL; +ATORVASTATIN CA20 MG ORAL; +CIPRO500 MG PO; +DUTASTERIDE0.5 MG PO; +ELIQUIS2.5 MG PO; +FLUTICASONE PRO16 G1 NASAL; +GUAIFENESIN-CO118 M1 ORAL; +MUCUS RELIEF400 MG PO; +VITAMIN D10000 UNIT PO
--- NOTE | 2019-03-08 01:34 | NUR ---
ED Nurse Note: Patient was BIBA RA 611 from home due to dizzines. Per patient he had his dialysis 5 hr ago and ever since fell so dizzy. Patient presented weak, AAO x3, VSS at this time. Patient has shunt on his left arm.
[2019-03-08 01:41] LABS: BASOPHILS % (AUTO) 0.4 % (0.0-2.0); EOSINOPHILS % (AUTO) 0.1 % (0.0-3.0); HEMATOCRIT 33.7 % (42.0-52.0); HEMOGLOBIN 10.6 G/DL (14.2-18.0); LYMPHOCYTES % (AUTO) 7.2 % (20.0-45.0); MEAN CORPUSCULAR VOLUME 103 FL (80-99); MONOCYTES % (AUTO) 9.7 % (1.0-10.0); NEUTROPHILS % (AUTO) 82.7 % (45.0-75.0); PLATELET COUNT 116 K/UL (150-450); RED BLOOD COUNT 3.29 M/UL (4.70-6.10); RED CELL DISTRIBUTION WIDTH 16.4 % (11.6-14.8); WHITE BLOOD COUNT 12.3 K/UL (4.8-10.8)
[2019-03-08 01:48] LABS: ANION GAP 13 mmol/L (5-15); BLOOD UREA NITROGEN 31 mg/dL (7-18); CALCIUM 8.4 MG/DL (8.5-10.1); CARBON DIOXIDE 27 MMOL/L (21-32); CHLORIDE 102 MMOL/L (98-107); CREATININE 4.4 MG/DL (0.55-1.30); SODIUM 142 MMOL/L (136-145)
[2019-03-08 01:49] LABS: INR 1.1 (0.9-1.1)
[2019-03-08 01:59] LABS: ALANINE AMINOTRANSFERASE 34 U/L (12-78); ALBUMIN 3.1 G/DL (3.4-5.0); ALBUMIN/GLOBULIN RATIO 0.6 (1.0-2.7); ALKALINE PHOSPHATASE 189 U/L (46-116); ASPARTATE AMINO TRANSFERASE 74 U/L (15-37); BILIRUBIN,TOTAL 0.7 MG/DL (0.2-1.0); PHOSPHORUS 4.4 MG/DL (2.5-4.9)
--- NOTE | 2019-03-08 02:01 | Emergency Room Report ---
History of Present Illness General Chief Complaint: Dizziness Source: Patient Present Illness HPI 83-year-old male past medical history of end-stage renal disease, dialysis Sunday presents with lightheadedness after dialysis, lasting few minutes that has since resolved, patient denies any chest pain shortness of breath severity was mild patient states he feels completely fine no fevers no chills no dysuria no abdominal pain no shortness of breath patient reports he feels completely fine Allergies: Coded Allergies: No Known Allergies (Unverified , 05/25/13) Patient History Past Medical History: see triage record Reviewed Nursing Documentation: PMH: Agreed; PSxH: Agreed Nursing Documentation-PMH Hx Cardiac Problems: Yes Hx Hypertension: Yes Hx Diabetes: Yes Hx Cancer: No Hx Gastrointestinal Problems: No Hx Dialysis: Yes - M/W/F Hx Neurological Problems: Yes Hx Cerebrovascular Accident: Yes Hx Dizziness: Yes Hx Weakness: Yes Review of Systems All Other Systems: negative except mentioned in HPI Physical Exam Vital Signs Date Time Temp Pulse Resp B/P (MAP) Pulse Ox O2 Delivery O2 Flow Rate FiO2 03/08/19 01:00 98.4 84 16 106/62 (77) 97 Room Air Sp02 EP Interpretation: reviewed, normal General Appearance: well appearing, no apparent distress, alert Head: normocephalic, atraumatic Eyes: bilateral eye PERRL, bilateral eye EOMI ENT: uvula midline, moist mucus membranes Neck: supple, thyroid normal, supple/symm/no masses Respiratory: lungs clear, no respiratory distress, no retraction, no accessory muscle use Cardiovascular #1: normal peripheral pulses, regular rate, rhythm, no edema, no gallop, no murmur Gastrointestinal: non tender, soft, no guarding, no rebound Musculoskeletal: normal inspection Neurologic: alert, oriented x3 Psychiatric: mood/affect normal Skin: no rash, warm/dry Procedures Critical Care Time Critical Care Time Given the critical condition in which the patient arrived, the patient was immediately assessed by myself and the nurse, and cardiac monitoring initiated due to the potential for rapid decompensation of the patient's clinical condition. During the course of the patient's stay, I spent a considerable amount of time at the bedside performing serial re-evaluations of the patient's hemodynamic and clinical status because of the recognized potential threat to life or limb in this condition. I then had a chance to review not only all of the available current laboratory and radiographic studies obtained today, but I also reviewed old records available to me at the time. Additionally, any ancillary information available including claims sorter records were reviewed. Sequential vital signs were obtained. Critical Care time of 33 minutes was performed exclusive of billable procedures. Medical Decision Making Diagnostic Impression: Primary Impression: Hemodialysis disequilibrium syndrome Additional Impression: NSTEMI (non-ST elevated myocardial infarction) ER Course 83-year-old male presents with vague complaints of feeling lightheaded exhausted during dialysis, differential diagnosis includes hemodialysis disequilibrium syndrome, ACS, syncope Labs drawn showed an elevated troponin, higher than baseline, patient just dialyzed, will start Lovenox, will provide patient with aspirin, patient will be admitted to telemetry additionally patient found to have 1 hypotensive episode requiring 500 cc bolus Patient admitted to Dr. García Laboratory Tests Test 03/08/19 01:20 03/08/19 01:42 03/08/19 03:03 White Blood Count 12.3 K/UL (4.8-10.8) H Red Blood Count 3.29 M/UL (4.70-6.10) L Hemoglobin 10.6 G/DL (14.2-18.0) L Hematocrit 33.7 % (42.0-52.0) L Mean Corpuscular Volume 103 FL (80-99) H Mean Corpuscular Hemoglobin 32.3 PG (27.0-31.0) H Mean Corpuscular Hemoglobin Concent 31.6 G/DL (32.0-36.0) L Red Cell Distribution Width 16.4 % (11.6-14.8) H Platelet Count 116 K/UL (150-450) L Mean Platelet Volume 8.7 FL (6.5-10.1) Neutrophils (%) (Auto) 82.7 % (45.0-75.0) H Lymphocytes (%) (Auto) 7.2 % (20.0-45.0) L Monocytes (%) (Auto) 9.7 % (1.0-10.0) Eosinophils (%) (Auto) 0.1 % (0.0-3.0) Basophils (%) (Auto) 0.4 % (0.0-2.0) Prothrombin Time 11.2 SEC (9.30-11.50) Prothrombin Time INR 1.1 (0.9-1.1) PTT 27 SEC (23-33) Sodium Level 142 MMOL/L (136-145) Potassium Level 5.0 MMOL/L (3.5-5.1) Chloride Level 102 MMOL/L (98-107) Carbon Dioxide Level 27 MMOL/L (21-32) Anion Gap 13 mmol/L (5-15) Blood Urea Nitrogen 31 mg/dL (7-18) H Creatinine 4.4 MG/DL (0.55-1.30) H Estimate Glomerular Filtration Rate mL/min (>60) Glucose Level 162 MG/DL (74-106) H Calcium Level 8.4 MG/DL (8.5-10.1) L Phosphorus Level 4.4 MG/DL (2.5-4.9) Magnesium Level 2.0 MG/DL (1.8-2.4) Total Bilirubin 0.7 MG/DL (0.2-1.0) Aspartate Amino Transferase (AST) 74 U/L (15-37) H Alanine Aminotransferase (ALT) 34 U/L (12-78) Alkaline Phosphatase 189 U/L (46-116) H Troponin I 0.758 ng/mL (0.000-0.056) Pro-B-Type Natriuretic Peptide > 21901 pg/mL (0-125) H Total Protein 7.9 G/DL (6.4-8.2) Albumin 3.1 G/DL (3.4-5.0) L Globulin 4.8 g/dL Albumin/Globulin Ratio 0.6 (1.0-2.7) L Lipase 96 U/L (73-393) Lactic Acid Level 3.80 mmol/L (0.4-2.0) H Pending EKG Diagnostic Results EKG Time: 01:16 EP Interpretation: NSR, rate 76, QTc 4 8, no acute ST elevations, left axis deviation Rhythm Strip Diag. Results Rhythm Strip Time: 02:01 EP Interpretation: yes Rate: 75 Rhythm: NSR, no PVC's, no ectopy Chest X-Ray Diagnostic Results Chest X-Ray Diagnostic Results : Chest X-Ray Ordered: Yes # of Views/Limited/Complete: 1 View Indication: Other - Weakness EP Interpretation: Yes Interpretation: other - Right pleural effusion Impression: Other - Right pleural effusion Electronically Signed by: Samy Fernandez MD Last Vital Signs Date Time Temp Pulse Resp B/P (MAP) Pulse Ox O2 Delivery O2 Flow Rate FiO2 03/08/19 01:26 98.4 16 106/62 97 Room Air 03/08/19 01:26 84 Disposition: ADMITTED INPATIENT Condition: Serious Samy Fernandez MD Mar 08, 2019 02:01
[2019-03-08] MEDS ORDERED: Enoxaparin 80mg Inj SUBQ ONE (02:15)
--- NOTE | 2019-03-08 03:27 | Diagnostic Imaging Report ---
EXAM: XR Chest, 1 View CLINICAL HISTORY: WEAK TECHNIQUE: Frontal view of the chest. COMPARISON: 02/26/2019 FINDINGS: Lungs: Right basilar atelectasis is unchanged. Pleural space: Small right pleural effusion, similar to the prior exam. Heart: Unremarkable. No cardiomegaly. IMPRESSION: Small right pleural effusion with right basilar atelectasis, similar to the prior
--- NOTE | 2019-03-08 05:30 | NUR ---
NURSE NOTES: Received pt from ED via gurney. Pt transferred to [facility] without any incident. Received report from MARIELA Wan. Pt is A/Ox2. Aguirre pt to room and unit. monitoring and evaluation advisor is in placed; pt is NSR. IV site intact, asymptomatic and patent. Belongings list checked and signed. Bed is in the lowest position and locked. Call light and beside table is within reach. No signs/symptoms of acute distress noted at this time. Will contact Dr. García for admission orders.
--- NOTE | 2019-03-08 05:43 | NUR ---
ED Nurse Note: Patient was admited to Tele unit due to NSTEMI. Patient was transfered to the unit via gurney, by ACLS protocol, with all belongings. Patient AAO x2, VSS at this time. Patient had bowel movement at ER.
--- NOTE | 2019-03-08 06:20 | NUR ---
NURSE NOTES: Received admission order from Dr. García. Will note and carry out.
[2019-03-08] MEDS ORDERED: guaiFENesin w/Codeine 5ml Liq ud ORAL PRN (07:00)
--- NOTE | 2019-03-08 07:45 | NUR ---
HAND-OFF: Report given to MARIELA Sotelo. Plan of care endorsed.
[2019-03-08] MEDS ORDERED: Flonase Nasal Inhaler 16gm NASAL SCH (09:00)
[2019-03-08] MEDS ORDERED: Benazepril 10mg tab ORAL SCH (09:00)
[2019-03-08] MEDS ORDERED: Docusate 100mg cap ORAL SCH ×2 (09:00→18:00)
[2019-03-08] MEDS ORDERED: Aspirin Baby 81mg ORAL SCH (09:00)
[2019-03-08] MEDS: Eliquis 2.5mg tablet ORAL SCH ×2 (09:37→17:53)
[2019-03-08] MEDS: Levemir Flexpen SUBQ SCH ×2 (10:29→21:00)
[2019-03-08] MEDS: NovoLOG Insulin Flexpen SUBQ SCH ×3 (11:30→21:00)
[2019-03-08] MEDS ORDERED: NovoLOG Insulin Flexpen SUBQ SCH (11:30)
--- NOTE | 2019-03-08 13:57 | Consultation ---
Consult Note Consult Note asked to eval for dialysis management 83-year-old male past medical history of end-stage renal disease, dialysis Sunday presents with lightheadedness after dialysis, lasting few minutes that has since resolved, patient denies any chest pain shortness of breath severity was mild patient states he feels completely fine no fevers no chills no dysuria no abdominal pain no shortness of breath patient reports he feels completely fine No Known Allergies (Unverified , 05/25/13) Hx Cardiac Problems: Yes Hx Hypertension: Yes Hx Diabetes: Yes Hx Gastrointestinal Problems: No Hx Dialysis: Yes - M/W/F Hx Neurological Problems: Yes Hx Cerebrovascular Accident: Yes Hx Dizziness: Yes Hx Weakness: Yes examined data reviewed Assessment/Plan ESRD HTN Anemia DM CAD- Cardiomyopathy s/p SEPSIS Plan: recent 2D echo 40% EjFx Pulm Toilet HD 03/10/2019 Keep BP in check - Hold bp meds for now due to low BP Albumin bolus per consultants per orders Mikey Brandt MD Mar 08, 2019 13:57
[2019-03-08] MEDS ORDERED: HydrALAZINE 25mg tab ORAL PRN (14:15)
--- NOTE | 2019-03-08 14:47 | Cardiac Electrophysiology PN ---
Subjective Subjective [id number] Objective Last 24 Hour Vital Signs Date Time Temp Pulse Resp B/P (MAP) Pulse Ox O2 Delivery O2 Flow Rate FiO2 03/08/19 09:36 99/56 03/08/19 05:41 98.4 69 18 99/56 98 Room Air 03/08/19 05:41 98.4 69 18 99/56 98 Room Air 03/08/19 05:38 Room Air 03/08/19 05:34 65 03/08/19 05:30 97.1 68 19 135/49 (77) 95 03/08/19 03:35 98.4 74 16 104/48 96 Room Air 03/08/19 01:26 98.4 16 106/62 97 Room Air 03/08/19 01:26 84 16 Room Air 03/08/19 01:00 98.4 84 16 106/62 (77) 97 Room Air Intake and Output 03/07/19 03/08/19 19:00 07:00 Intake Total 112 ml Balance 112 ml Intake Oral 112 ml # Voids 1 # Bowel Movements 2 Laboratory Tests Test 03/08/19 01:20 03/08/19 01:42 03/08/19 03:03 03/08/19 13:55 White Blood Count 12.3 K/UL (4.8-10.8) H Red Blood Count 3.29 M/UL (4.70-6.10) L Hemoglobin 10.6 G/DL (14.2-18.0) L Hematocrit 33.7 % (42.0-52.0) L Mean Corpuscular Volume 103 FL (80-99) H Mean Corpuscular Hemoglobin 32.3 PG (27.0-31.0) H Mean Corpuscular Hemoglobin Concent 31.6 G/DL (32.0-36.0) L Red Cell Distribution Width 16.4 % (11.6-14.8) H Platelet Count 116 K/UL (150-450) L Mean Platelet Volume 8.7 FL (6.5-10.1) Neutrophils (%) (Auto) 82.7 % (45.0-75.0) H Lymphocytes (%) (Auto) 7.2 % (20.0-45.0) L Monocytes (%) (Auto) 9.7 % (1.0-10.0) Eosinophils (%) (Auto) 0.1 % (0.0-3.0) Basophils (%) (Auto) 0.4 % (0.0-2.0) Prothrombin Time 11.2 SEC (9.30-11.50) Prothromb Time International Ratio 1.1 (0.9-1.1) Activated Partial Thromboplast Time 27 SEC (23-33) Sodium Level 142 MMOL/L (136-145) Potassium Level 5.0 MMOL/L (3.5-5.1) Chloride Level 102 MMOL/L (98-107) Carbon Dioxide Level 27 MMOL/L (21-32) Anion Gap 13 mmol/L (5-15) Blood Urea Nitrogen 31 mg/dL (7-18) H Creatinine 4.4 MG/DL (0.55-1.30) H Estimat Glomerular Filtration Rate mL/min (>60) Glucose Level 162 MG/DL (74-106) H Calcium Level 8.4 MG/DL (8.5-10.1) L Phosphorus Level 4.4 MG/DL (2.5-4.9) Magnesium Level 2.0 MG/DL (1.8-2.4) Total Bilirubin 0.7 MG/DL (0.2-1.0) Aspartate Amino Transf (AST/SGOT) 74 U/L (15-37) H Alanine Aminotransferase (ALT/SGPT) 34 U/L (12-78) Alkaline Phosphatase 189 U/L (46-116) H Troponin I 0.758 ng/mL (0.000-0.056) Pending Pro-B-Type Natriuretic Peptide > 90142 pg/mL (0-125) H Total Protein 7.9 G/DL (6.4-8.2) Albumin 3.1 G/DL (3.4-5.0) L Globulin 4.8 g/dL Albumin/Globulin Ratio 0.6 (1.0-2.7) L Lipase 96 U/L (73-393) Lactic Acid Level 3.80 mmol/L (0.4-2.0) H 3.30 mmol/L (0.66-2.22) H Dariel Corcoran MD Mar 08, 2019 14:47
--- NOTE | 2019-03-08 15:43 | Consultation ---
Consult Note Assessment/Plan DICT [id number] Thaddeus Cornelius MD Mar 08, 2019 15:43
[2019-03-08] MEDS ORDERED: Vitamin D 50,000 units cap ORAL SCH (18:00)
--- NOTE | 2019-03-08 19:30 | NUR ---
NURSE NOTES: Received report from MARIELA Sotelo. Patient is in bed, awake and responsive. Breathing regular and unlabored with no s/s of SOB noted at this time. Patient is on a 2L NC. Patient's Dialysis access is on the EDMOND. Patient's IV is on the R wrist, patent, intact, and saline locked. Patient is primarily Malay speaking, family is at bedside. Bed is in lowest position, breaks engaged, and call light is within reach. Patient is currently stable, will continue to monitor.
--- NOTE | 2019-03-08 19:35 | NUR ---
NURSE NOTES: Upon assessment of the patient's labs, noted that the patient's lactic acid and troponin levels are elevated. Asked [place], the RN from the morning is MD was aware, and according to him Dr. Corcoran was notified. Contacted Dr. Corcoran to inform about the Troponin levels, awaiting response. Patient is stable, will continue to monitor.
--- NOTE | 2019-03-08 20:00 | NUR ---
NURSE NOTES: Contacted Dr. Corcoran in regards to the patient's Troponin levels and per Dr. Corcoran "If no chest pain, keep everything as is. Don't call if Troponin is less than 4." Patient has labs due in the morning for Troponin levels. Patient denies chest pain. Will continue to monitor.
--- NOTE | 2019-03-08 20:00 | Consultation ---
DATE OF CONSULTATION: 03/08/2019 PULMONARY CONSULTATION CONSULTING PHYSICIAN: Thaddeus Cornelius M.D. REFERRING PHYSICIAN: Viktor García M.D. REASON FOR CONSULTATION: Shortness of breath. HISTORY OF PRESENT ILLNESS: The patient is an 83-year-old male with a history of end-stage renal disease on dialysis, who presented with lightheadedness after dialysis. No chest pain. He has mild shortness of breath, which is chronic. No fevers, chills, or other complaints. Since coming to the hospital, he has been afebrile with stable vital signs saturating well on room air. He has been seen by Cardiology and Renal. He had an echo with EF of 40% and dialysis is planned and ordered. The patient's white count is minimally elevated. He also has a lactic acidosis, and an [id number] MS. Of note, the patient was admitted earlier in this month with altered mental status and shortness of breath. He had pleural effusion and right lower lobe consolidation. He was treated with nebulizers and antibiotics. PAST MEDICAL HISTORY: 1. End-stage renal disease, on dialysis. 2. CVA. 3. Hypertension. 4. Hyperlipidemia. 5. BPH. 6. Diabetes. ALLERGIES: No known drug allergies. MEDICATIONS: Prior to admission medications reviewed. Current medications reviewed. SOCIAL HISTORY: No history of tobacco, alcohol, or drug use. FAMILY HISTORY: Noncontributory. REVIEW OF SYSTEMS: Negative other than the history of present illness. PHYSICAL EXAMINATION: VITAL SIGNS: Temperature 98.4, pulse 69, blood pressure 99/56, respiratory rate 18, and saturating 94% on room air. GENERAL: The patient is a well-developed and well-nourished male, in no acute distress. Awake, alert, and oriented x3. HEENT: Normocephalic and atraumatic. Oropharynx is clear with moist mucous membranes. NECK: Supple. No adenopathy or JVD. CHEST: Clear with some bibasilar rales. HEART: Regular rate and rhythm. ABDOMEN: Soft, nontender, and nondistended. EXTREMITIES: No cyanosis, clubbing or edema. ANCILLARY DATA: Laboratories, sodium 142, potassium 5, chloride 102, bicarbonate 27, BUN 31, and creatinine 4.4. Lactic acid 3.8. Calcium 8.4, phosphorus 4.4, magnesium 2.0. Total bilirubin 0.7. AST 74, ALT 34, and alkaline phosphatase 189. Troponin 0.78 and repeat 3.54. BNP greater than 35,000. Total protein 7.9. Albumin 3.1. INR 1.2. Cultures pending. IMAGING: Chest x-ray shows small right pleural effusion with some atelectasis at the right base. Echo from 02/01/2018 shows LVEF of 55 to 60% and PA pressure of 28. ASSESSMENT: The patient is an 83-year-old male with a history of prior CVA, end-stage renal disease, on dialysis, hypertension, hyperlipidemia, CAD, CVA, and BPH presenting with dizziness and [id number] MS. He is fairly stable from a respiratory standpoint. PROBLEM LIST: 1. Non ST-elevation myocardial infarction. 2. Recent pneumonia. 3. Dizziness. 4. End-stage renal disease, on dialysis. 5. CAD. 6. Hypertension. 7. Hyperlipidemia. 8. Anemia. 9. Diabetes. TREATMENT PLAN: 1. Optimize pulmonary hygiene/mobilize as tolerated. 2. P.r.n. O2. 3. P.r.n. bronchodilators. 4. Observe off antibiotics for signs of respiratory infection. 5. Follow up Cardiology recommendations, medical management of non-STEMI. 6. Consider transfer to a Cath Center. 7. The patient is on Eliquis and received a dose of Lovenox, will need full anticoagulation. 8. We will discuss with team. 9. Monitor volumes and renal function, dialysis per Renal. Thaddeus Cornelius M.D. DR: MARIA ISABEL JOB#: [id number] CC:
[2019-03-08] MEDS: Atorvastatin 20mg tab ORAL SCH ×2 (21:00→22:06)
[2019-03-08] MEDS: Tamsulosin 0.4mg cap ORAL SCH ×2 (21:00→22:06)
--- NOTE | 2019-03-08 21:30 | NUR ---
NURSE NOTES: Upon assessment of the patient's 2100 BG levels, noted that the patient's BG was 30. Patient was arousable. Administered PRN Dextrose per orders, patient's BG reading was 109, however patient's BG started to drop again. Contacted Dr. García to inform him about the patient's condition. Received orders, orders noted and carried out. Will continue to monitor the patient.
[2019-03-09] VITALS: BP 101/69
--- NOTE | 2019-03-09 01:00 | History and Physical Report ---
DATE OF ADMISSION: 03/08/2019 HISTORY OF PRESENT ILLNESS: The patient is an 83-year-old gentleman with history of hypertension, end-stage renal disease on dialysis, history of previous CVA, history of BPH, hyperlipidemia, hypertension as well as diabetes and history of recent pneumonia, who was recently discharged after being treated for pneumonia and some alteration in mental status, which had resolved. The patient was apparently in dialysis where he started feeling lightheaded after dialysis. There is no chest pain. He did have some mild shortness of breath. No fevers or chills, and he was transferred to the emergency room here. In the ER, he was evaluated. He was noted to have a minimally elevated white count. He also had lactic acidosis as well as non-ST wave elevation AL. PAST MEDICAL HISTORY: Includes history of end-stage renal disease on dialysis, history of CVA, history of hypertension, history of hyperlipidemia, history of BPH, history of diabetes, history of recent pneumonia, and history of pleural effusions. ALLERGIES: None known. MEDICATIONS: Please see his reconciled med list. SOCIAL HISTORY: He does not smoke. He does not drink any alcohol. FAMILY HISTORY: Noncontributory. REVIEW OF SYSTEMS: Twelve-point review of systems reviewed and negative except for above. PHYSICAL EXAMINATION: GENERAL: Elderly in no apparent distress. VITAL SIGNS: Blood pressure is 100/56, pulse 69, temperature 98.4, respirations 18, and saturation 94% room air. HEENT: Head is normocephalic, atraumatic. Pupils are equal, reactive to light. Extraocular muscles are intact. Eyes are anicteric. NECK: Supple. LUNGS: Clear with some bibasilar crackles. HEART: Regular rate and rhythm. ABDOMEN: Soft. Positive bowel sounds. EXTREMITIES: No clubbing, cyanosis, or edema. He does have a fistula. NEUROLOGIC: He is alert and oriented. Nonfocal. LABORATORY DATA: Sodium 142, potassium 5, chloride 102, bicarb 27, BUN of 31, and creatinine 4.4. Lactic acid 3.8. Calcium 8.4. Magnesium 2.0. AST of 74, ALT of 34, total bilirubin 0.7, and alkaline phosphatase 189. Troponin 0.78, repeat 3.54. BNP greater than 35,000. Chest x-ray reveals small right pleural effusion and some atelectasis in the right base. Echo on 02/01/2019 shows an ejection fraction of 55% to 60%. PA pressure 28. ASSESSMENT AND PLAN: The patient is an 83-year-old gentleman with prior history of CVA, end-stage renal disease on dialysis, hypertension, hyperlipidemia, CAD, CVA, recent pneumonia, and BPH who presents with dizziness and appears to have a non-ST wave AL with troponins elevated. The patient is admitted to a monitored bed. We will give him pulmonary hygiene and placed on aspirin. I have asked cardiology consultation with Dr. Corcoran to see him. He is on Eliquis. We will continue him on that for his renal failure, Dr. Brandt will manage his dialysis. At this point, he does not appear to have any signs of respiratory infection. We will keep him off antibiotics, given pulmonary hygiene. Viktor García M.D. DR: STEPHANIE JOB#: [id number] CC:
--- NOTE | 2019-03-09 01:15 | NUR ---
NURSE NOTES: Re-assessed the patient's BG levels after the fluids had been running and patient's BG was 54. Administered PRN Dextrose again and the BG reading was 74. Patient is alert and responsive. No acute distress noted at this time, will continue to monitor.
--- NOTE | 2019-03-09 02:30 | Consultation ---
DATE OF CONSULTATION: 03/08/2019 CARDIOLOGY CONSULTATION CONSULTING PHYSICIAN: Dariel Corcoran M.D. REFERRING PHYSICIAN: Viktor García M.D. REASON FOR CONSULTATION: Elevated troponin. HISTORY OF PRESENT ILLNESS: The patient is an 83-year-old gentleman with history of hypertension and end-stage renal disease, on hemodialysis, who was just recently admitted from 02/26/2019. The patient presented to the emergency room with lightheadedness after dialysis lasting a few minutes. The patient denies any chest pain or shortness of breath. His troponin, however, is elevated and necessitated Cardiology consultation. His EKG also was suggestive of an inferolateral ischemia. The patient denies any prior myocardial infarction or congestive heart failure. REVIEW OF SYSTEMS: Negative other than what was mentioned in the history of present illness. PAST MEDICAL HISTORY: 1. Hypertension. 2. Diabetes. 3. End-stage renal disease, on hemodialysis. 4. History of CVA. 5. 6. History of cardiomyopathy with EF of 40%. FAMILY HISTORY: Noncontributory. SOCIAL HISTORY: Does not smoke or drink alcohol. PHYSICAL EXAMINATION: VITAL SIGNS: Blood pressure of 99/56, pulse 69, respirations 18, and temperature 98.4. HEAD AND NECK: Showed no JVD. LUNGS: Clear. CARDIOVASCULAR: Shows regular S1 and S2 with no gallop or murmur. ABDOMEN: Soft. EXTREMITIES: No pitting edema. He has dialysis access in the left arm. LABORATORY AND DIAGNOSTIC DATA: His labs show white count of 12.3, hemoglobin 10.7, hematocrit 33.7, and platelet count of 116,000. Sodium is 142, potassium 5.0, BUN 31, creatinine 4.4, and glucose of 162. Lactic acid is 3.8. Troponin 0.78 . BNP is more than 35,000. ASSESSMENT AND PLAN: 1. Troponin elevation, could be due to renal failure. EKG, completely rule out [place]. I reviewed EKG. I will keep the patient on aspirin, beta-rubia, and statin. 2. Cardiomyopathy with EF of 40%. BNP is more than 35,000. His most recent echocardiogram was ordered a month ago on 02/02/2019 with an EF of 55% to 60%. We will repeat the echocardiogram especially in view of high BNP. The patient is also on Eliquis for anticoagulation. 3. End-stage renal disease, on hemodialysis. 4. Lactic acidosis. 5. Hyperlipidemia, on Lipitor. Thank you very much for allowing me to participate in the care of this patient. Please do not hesitate to contact me for any questions regarding my evaluation. Dariel Corcoran M.D. DR: ESTHER JOB#: [id number] CC:
[2019-03-09] MEDS ORDERED: Dextrose 10% 1,000 ML IV SCH (03:30)
--- NOTE | 2019-03-09 03:45 | NUR ---
NURSE NOTES: Upon assessment of the patient's BG, noted that the patient's BG was 47. Administered PRN Dextrose and contacted Dr. García to inform him about the patient's condition. Received orders from the Doctor, orders noted and carried out. Will continue to monitor.
[2019-03-09 04:00] VITALS: BP 114/67
[2019-03-09] MEDS ORDERED: Vancomycin 1gm/D5W 275ml IVPB ONE ×2 (04:30)
--- NOTE | 2019-03-09 05:50 | NUR ---
NURSE NOTES: Contacted Dr. García due to patient's condition. After initiation of prescribed fluids, and PRN Dextrose, patient's BG is still low with the reading of 54. Received orders from Doctor to transfer patient to [facility]. supervisor core shop contacted, awaiting response for transfer. Will continue to monitor.
[2019-03-09] MEDS ORDERED: Piperacillin/Tazobactam 2.25 GM in NS 110 ML IV SCH (06:00)
--- NOTE | 2019-03-09 06:10 | NUR ---
NURSE NOTES: Transferred patient to [facility] per MD orders. Patient transferred via bed, receiving nurse MARIELA Novoa. Patient transferred with no incident. RFA and RUP IV's both intact, running prescribed fluids and prescribed antibiotics. Patient's ED[facility]D dialysis access is intact with presence of bruit and thrill. When patient transferred, monitoring specialist was switched from Tele to [facility]. Belongings taken with patient, reviewed and signed with the receiving RN. Patient remains on the 2L NC with saturation in the 90's. Diabetic medication orders were discontinued per MD orders upon transfer. MARIELA Novoa transferred over the patient's remaining orders. Patient is in stable condition with no acute distress noted. All other needs attended to.
--- NOTE | 2019-03-09 06:20 | NUR ---
NURSE NOTES: Patient was transferred to SDU Room 238-2 from 2E by bed. Received report from Marimar SIERRA . Patient is awake oriented to person only. and confused. on NC 2L with no respiratory distress noted.SR on the monitor. BP 146/62 HR 86 RR18 SPO2 98% and TEMP 97.3 BS 63 and OJ 120 cc given.will recheck BS in 15 min.Denies any pain at this time. skin body assessment was done. redness on sacral area. no open wound noted. AV shunt on EDMOND with present bruit and thrill.will continue to monitor patient closely.
[2019-03-09] MEDS ORDERED: HydrALAZINE 25mg tab ORAL PRN (07:03)
--- NOTE | 2019-03-09 07:45 | NUR ---
HAND-OFF: Report given to LESLY HERRERA RN. No acute distress noted..
[2019-03-09 08:00] VITALS: BP 110/42
--- NOTE | 2019-03-09 08:15 | NUR ---
NURSE NOTES: Received report from Melissa Walker RN. Observed patient in bed, awake, verbally responsive, confused, trying to get out of bed. On O2 2L via NC, no respiratory distress noted. IV on right upper arm and right forearm intact and patent with IV fluids infusing at prescribed rate. Last blood sugar reported this morning 86mg/dL. Left upper arm AV shunt noted with good bruit and thrill and clean, intact dressing in place. Safety precautions in place; bed locked, alarmed, and in lowest position, side rails up x3, and call light left within reach. Patient was placed in room close to nurse's station for fall precautions. Will continue plan of care and will continue to monitor patient.
[2019-03-09] MEDS: Docusate 100mg cap ORAL SCH ×3 (08:42→17:38)
[2019-03-09] MEDS: Aspirin Baby 81mg ORAL SCH (08:42)
[2019-03-09] MEDS: Eliquis 2.5mg tablet ORAL SCH ×2 (08:42→17:38)
[2019-03-09] MEDS: Dextrose 10% 1,000 ML IV SCH ×3 (08:46→14:15)
[2019-03-09] MEDS: Flonase Nasal Inhaler 16gm NASAL SCH (09:00)
--- NOTE | 2019-03-09 09:00 | NUR ---
Principal Hardware Architect: Patient noted to be trying to get out of bed and pulled out IV line on right upper arm. Reinforced education on fall precautions, patient is confused, unable to verbalize understanding at this time. Bed remained locked, alarmed, and in lowest position, side rails up x3, and call light left within reach. Will continue to monitor patient. Addendum: 03/09/19 at 1347 by Tg Orona RN Entered as Nurse's note; rehab nursing tech header error.
--- NOTE | 2019-03-09 10:04 | NUR ---
NURSE NOTES: Patient noted to be trying to get out of bed. Reinforced education on fall precautions, patient is confused, unable to verbalize understanding at this time. Dr García contacted, new orders received. Will enter, noted, and will carry out. Bed remained locked, alarmed, and in lowest position, side rails up x3, and call light left within reach. Will continue to monitor patient.
[2019-03-09] MEDS ORDERED: Haloperidol 5mg/ml Inj IM SCH (10:15)
[2019-03-09 11:41] LABS: HEMATOCRIT 29.5 % (42.0-52.0); HEMOGLOBIN 9.1 G/DL (14.2-18.0); MEAN CORPUSCULAR VOLUME 103 FL (80-99); PLATELET COUNT 108 K/UL (150-450); RED BLOOD COUNT 2.88 M/UL (4.70-6.10); RED CELL DISTRIBUTION WIDTH 15.9 % (11.6-14.8); WHITE BLOOD COUNT 9.4 K/UL (4.8-10.8)
[2019-03-09 11:59] LABS: PHOSPHORUS 8.1 MG/DL (2.5-4.9)
[2019-03-09 12:00] VITALS: BP 130/93
[2019-03-09 12:06] LABS: ALANINE AMINOTRANSFERASE 54 U/L (12-78); ALBUMIN/GLOBULIN RATIO 0.8 (1.0-2.7); ALKALINE PHOSPHATASE 154 U/L (46-116); ANION GAP 13 mmol/L (5-15); ASPARTATE AMINO TRANSFERASE 83 U/L (15-37); BILIRUBIN,TOTAL 0.5 MG/DL (0.2-1.0); BLOOD UREA NITROGEN 52 mg/dL (7-18); CALCIUM 7.7 MG/DL (8.5-10.1); CARBON DIOXIDE 26 MMOL/L (21-32); CHLORIDE 102 MMOL/L (98-107); CHOLESTEROL 76 MG/DL (< 200); CREATININE 6.1 MG/DL (0.55-1.30); HDL CHOLESTEROL 50 MG/DL (40-60); POTASSIUM 4.4 MMOL/L (3.5-5.1); SODIUM 141 MMOL/L (136-145); TRIGLYCERIDES 20 MG/DL (30-150)
--- NOTE | 2019-03-09 12:50 | NUR ---
NURSE NOTES: Patient refusing to eat lunch at this time; charge nurse aware. Last blood glucose 75mg/dL. IV fluids ongoing. Lunch tray left at bedside. Will continue to monitor.
[2019-03-09] MEDS: Piperacillin/Tazobactam 2.25 GM in NS 110 ML IV SCH ×2 (13:40→21:49)
--- NOTE | 2019-03-09 14:06 | Nephrology Progress Note ---
Assessment/Plan Problem List: (1) ESRD (end stage renal disease) on dialysis (2) Cardiomyopathy (3) NSTEMI (non-ST elevated myocardial infarction) Assessment ESRD HTN Anemia DM CAD- Cardiomyopathy s/p SEPSIS NV Plan recent 2D echo 40% EjFx Pulm Toilet HD 03/10/2019 Keep BP in check - Hold bp meds for now due to low BP Albumin bolus ASA Nitrate per consultants per orders Objective Objective Last 24 Hour Vital Signs Date Time Temp Pulse Resp B/P (MAP) Pulse Ox O2 Delivery O2 Flow Rate FiO2 03/09/19 12:00 97.2 70 18 130/93 (105) 100 03/09/19 11:35 70 03/09/19 09:00 Nasal Cannula 2.0 03/09/19 08:06 82 03/09/19 08:00 97.6 79 20 110/42 (64) 94 03/09/19 04:00 86 03/09/19 04:00 97.6 81 20 114/67 (83) 95 03/09/19 00:00 97.8 75 20 101/69 (80) 96 03/09/19 00:00 74 03/08/19 21:00 Nasal Cannula 2.0 03/08/19 20:00 72 03/08/19 20:00 98.0 75 20 116/55 (75) 100 03/08/19 16:00 97.0 75 20 112/63 (79) 94 03/08/19 16:00 75 Intake and Output 03/08/19 03/09/19 19:00 07:00 Intake Total 120 ml Balance 120 ml Intake Oral 120 ml # Voids 1 Laboratory Tests 03/09/19 11:08: White Blood Count 9.4, Red Blood Count 2.88L, Hemoglobin 9.1L, Hematocrit 29.5L , Mean Corpuscular Volume 103H, Mean Corpuscular Hemoglobin 31.8H, Mean Corpuscular Hemoglobin Concent 30.9L, Red Cell Distribution Width 15.9H, Platelet Count 108L, Mean Platelet Volume 7.7, Neutrophils (%) (Auto) , Lymphocytes (%) (Auto) , Monocytes (%) (Auto) , Eosinophils (%) (Auto) , Basophils (%) (Auto) , Differential Total Cells Counted 100, Neutrophils % ( Manual) 86H, Lymphocytes % (Manual) 7L, Monocytes % (Manual) 7, Eosinophils % ( Manual) 0, Basophils % (Manual) 0, Band Neutrophils 0, Platelet Estimate DecreasedL, Platelet Morphology Normal, Hypochromasia 1+, Anisocytosis 1+, Macrocytosis 1+, Sodium Level 141, Potassium Level 4.4, Chloride Level 102, Carbon Dioxide Level 26, Anion Gap 13, Blood Urea Nitrogen 52H, Creatinine 6.1H , Estimat Glomerular Filtration Rate , Glucose Level 90, Hemoglobin A1c 5.7, Lactic Acid Level 1.80, Uric Acid 5.5, Calcium Level 7.7L, Phosphorus Level 8.1H , Magnesium Level 2.0, Total Bilirubin 0.5, Aspartate Amino Transf (AST/SGOT) 83H, Alanine Aminotransferase (ALT/SGPT) 54, Alkaline Phosphatase 154H, Troponin I 3.046H, Total Protein 7.0, Albumin 3.0L, Globulin 4.0, Albumin/ Globulin Ratio 0.8L, Triglycerides Level 20L, Cholesterol Level 76, LDL Cholesterol 19, HDL Cholesterol 50, Cholesterol/HDL Ratio 1.5L, Thyroid Stimulating Hormone (TSH) 5.477H Height (Feet): 5 Height (Inches): 5.00 Weight (Pounds): 154 Mikey Brandt MD Mar 09, 2019 14:06
--- NOTE | 2019-03-09 14:16 | Pulmonology Progress Note ---
Assessment/Plan Problems: (1) NSTEMI (non-ST elevated myocardial infarction) (2) ESRD (end stage renal disease) on dialysis (3) Cardiomyopathy (4) HTN (hypertension) (5) HLD (hyperlipidemia) (6) CVA (cerebral vascular accident) Assessment/Plan ASSESSMENT: The patient is an 83-year-old male with a history of prior CVA, end -stage renal disease, on dialysis, hypertension, hyperlipidemia, CAD, CVA, and BPH presenting with dizziness and wio-PD-nnndvexiq [place]. He is fairly stable from a respiratory standpoint. PROBLEM LIST: 1. Non ST-elevation myocardial infarction. 2. Recent pneumonia. 3. Dizziness. 4. End-stage renal disease, on dialysis. 5. CAD. 6. Hypertension. 7. Hyperlipidemia. 8. Anemia. 9. Diabetes. TREATMENT PLAN: 1. Optimize pulmonary hygiene/mobilize as tolerated. 2. Titrate O2 3. P.r.n. bronchodilators. 4. Observe off antibiotics for signs of respiratory infection. 5. Follow up Cardiology recommendations, medical management of non-STEMI. 6. Monitor BP, anti-hypertensives held, PRN boluses 7. Continue Eliquis 8. D10 gtt, monitor BS 9. Monitor volumes and renal function, dialysis per Renal. Subjective Allergies: Coded Allergies: No Known Allergies (Unverified , 05/25/13) Subjective TT POLINA BP low meds held S/P alb bolus better BS low now on D10 gtt O2 needs stable @ 2L + SOB no cough no CP no FC trops started to downtrend Objective Last 24 Hour Vital Signs Date Time Temp Pulse Resp B/P (MAP) Pulse Ox O2 Delivery O2 Flow Rate FiO2 03/09/19 12:00 97.2 70 18 130/93 (105) 100 03/09/19 11:35 70 03/09/19 09:00 Nasal Cannula 2.0 03/09/19 08:06 82 03/09/19 08:00 97.6 79 20 110/42 (64) 94 03/09/19 04:00 86 03/09/19 04:00 97.6 81 20 114/67 (83) 95 03/09/19 00:00 97.8 75 20 101/69 (80) 96 03/09/19 00:00 74 03/08/19 21:00 Nasal Cannula 2.0 03/08/19 20:00 72 03/08/19 20:00 98.0 75 20 116/55 (75) 100 03/08/19 16:00 97.0 75 20 112/63 (79) 94 03/08/19 16:00 75 Intake and Output 03/08/19 03/09/19 19:00 07:00 Intake Total 120 ml Balance 120 ml Intake Oral 120 ml # Voids 1 General Appearance: no acute distress, cachetic HEENT: normocephalic, atraumatic, anicteric, mucous membranes moist Respiratory/Chest: crackles/rales Cardiovascular: normal peripheral pulses, normal rate, regular rhythm Abdomen: normal bowel sounds, soft, non tender, no organomegaly, non distended , no mass Extremities: no cyanosis, no clubbing, no edema Laboratory Tests 03/09/19 11:08: White Blood Count 9.4, Red Blood Count 2.88L, Hemoglobin 9.1L, Hematocrit 29.5L , Mean Corpuscular Volume 103H, Mean Corpuscular Hemoglobin 31.8H, Mean Corpuscular Hemoglobin Concent 30.9L, Red Cell Distribution Width 15.9H, Platelet Count 108L, Mean Platelet Volume 7.7, Neutrophils (%) (Auto) , Lymphocytes (%) (Auto) , Monocytes (%) (Auto) , Eosinophils (%) (Auto) , Basophils (%) (Auto) , Differential Total Cells Counted 100, Neutrophils % ( Manual) 86H, Lymphocytes % (Manual) 7L, Monocytes % (Manual) 7, Eosinophils % ( Manual) 0, Basophils % (Manual) 0, Band Neutrophils 0, Platelet Estimate DecreasedL, Platelet Morphology Normal, Hypochromasia 1+, Anisocytosis 1+, Macrocytosis 1+, Sodium Level 141, Potassium Level 4.4, Chloride Level 102, Carbon Dioxide Level 26, Anion Gap 13, Blood Urea Nitrogen 52H, Creatinine 6.1H , Estimat Glomerular Filtration Rate , Glucose Level 90, Hemoglobin A1c 5.7, Lactic Acid Level 1.80, Uric Acid 5.5, Calcium Level 7.7L, Phosphorus Level 8.1H , Magnesium Level 2.0, Total Bilirubin 0.5, Aspartate Amino Transf (AST/SGOT) 83H, Alanine Aminotransferase (ALT/SGPT) 54, Alkaline Phosphatase 154H, Troponin I 3.046H, Total Protein 7.0, Albumin 3.0L, Globulin 4.0, Albumin/ Globulin Ratio 0.8L, Triglycerides Level 20L, Cholesterol Level 76, LDL Cholesterol 19, HDL Cholesterol 50, Cholesterol/HDL Ratio 1.5L, Thyroid Stimulating Hormone (TSH) 5.477H Current Medications Medications (Trade) Dose Ordered Sig/Stephany Route PRN Reason Start Time Stop Time Status Last Admin Dose Admin Acetaminophen (Tylenol) 650 mg Q6H PRN ORAL Mild Pain/Temp > 100.5 03/09/19 07:01 04/07/19 07:00 03/09/19 08:42 Apixaban (Eliquis) 2.5 mg BID ORAL 03/09/19 09:00 04/07/19 08:59 03/09/19 08:42 Aspirin (ASA) 81 mg DAILY ORAL 03/09/19 09:00 04/07/19 08:59 03/09/19 08:42 Atorvastatin Calcium (Lipitor) 20 mg BEDTIME ORAL 03/09/19 21:00 04/07/19 20:59 Dextrose 1,000 ml @ 30 mls/hr Q24H IV 03/09/19 14:07 04/08/19 14:06 Dextrose (Dextrose 50%) 25 ml Q30M PRN IV Hypoglycemia 03/09/19 07:00 04/07/19 06:59 Dextrose (Dextrose 50%) 50 ml Q30M PRN IV Hypoglycemia 03/09/19 07:00 04/07/19 06:59 Docusate Sodium (Colace) 100 mg TID ORAL 03/09/19 09:00 04/07/19 08:59 03/09/19 08:42 Ergocalciferol (Drisdol) 50,000 intlu ONCE A WEEK ORAL 03/15/19 18:00 04/07/19 17:59 Finasteride (Proscar) 5 mg DAILY ORAL 03/09/19 09:00 04/07/19 08:59 03/09/19 08:42 Fluticasone Propionate (Flonase) 2 spray DAILY NASAL 03/09/19 09:00 04/07/19 08:59 Guaifenesin/ Codeine Phosphate (Robitussin with codeine) 5 ml Q4H PRN ORAL For Cough 03/09/19 07:00 04/07/19 06:59 Hydralazine HCl (Apresoline) 25 mg Q4H PRN ORAL bp over 160 syst 03/09/19 07:03 04/07/19 07:02 Isosorbide Dinitrate (Isordil) 10 mg Q6HR ORAL 03/09/19 18:00 04/08/19 17:59 Nitroglycerin (Ntg) 1 patch Q24H TDERMAL 03/09/19 14:30 04/08/19 14:29 Ondansetron HCl (Zofran) 4 mg Q4H PRN IVP Nausea & Vomiting 03/09/19 07:03 04/08/19 07:02 Pantoprazole (Protonix) 40 mg BID ORAL 03/09/19 09:00 04/07/19 06:59 03/09/19 08:42 Piperacillin Sod/ Tazobactam Sod 2.25 gm/Sodium Chloride 110 ml @ 220 mls/hr EVERY 8 HOURS IV 03/09/19 14:00 03/16/19 05:59 03/09/19 13:40 Sevelamer Carbonate (Renvela) 800 mg THREE TIMES A DAY ORAL 03/09/19 13:00 04/08/19 12:59 Tamsulosin HCl (Flomax) 0.4 mg BEDTIME ORAL 03/09/19 21:00 04/07/19 20:59 Vancomycin HCl (Vanco rx to dose) 1 ea DAILY PRN MISC Per rx protocol 03/09/19 09:00 04/08/19 03:44 Thaddeus Cornelius MD Mar 09, 2019 14:16
--- NOTE | 2019-03-09 14:45 | NUR ---
NURSE NOTES: Patient noted to be anxious, daughter present at bedside. BP 115/60, HR 72, O2 saturation 100% on O2 2L via NC. Daughter remains at bedside, will continue to monitor patient.
--- NOTE | 2019-03-09 14:57 | NUR ---
NURSE NOTES: Called [facility] dialysis for HD order tomorrow 03/10/19; spoke with CONRADO. Awaiting for call back confirmation from HD nurse.
[2019-03-09] MEDS: Nitroglycerin Patch 0.4mg TDERMAL SCH (15:07)
[2019-03-09 16:00] VITALS: BP 115/60
[2019-03-09] MEDS: guaiFENesin w/Codeine 5ml Liq ud ORAL PRN (16:31)
--- NOTE | 2019-03-09 18:30 | Consultation ---
DATE OF CONSULTATION: 03/09/2019 INFECTIOUS DISEASE CONSULTATION CONSULTING PHYSICIAN: Boyd Tee M.D. PRIMARY ATTENDING PHYSICIAN: Viktor García M.D. REASON FOR CONSULTATION: Leukocytosis & recent pneumonia. HISTORY OF PRESENT ILLNESS: This is an 83-year-old male, admitted yesterday because of lightheadedness at the time of hemodialysis. The patient also had leukocytosis of 12.3. He was just admitted to hospital between and 04 of March with pneumonia. The patient has no complaint right now. It was fine the patient has non-ST elevation TN and elevated troponin. PAST MEDICAL HISTORY: End-stage renal disease on hemodialysis, hypertension, diabetes mellitus, hyperlipidemia, BPH, systolic congestive heart failure. ALLERGIES: No known drug allergy. MEDICATION: Getting ergocalciferol, atorvastatin, Flomax, Zosyn started today, apixaban, aspirin, finasteride, Flonase, vancomycin, hydralazine, guaifenesin, Zofran. SOCIAL HISTORY: Single. No history of alcohol, drug abuse, or smoking. Originally from [place]. REVIEW OF SYSTEMS: Very limited. PHYSICAL EXAMINATION: VITAL SIGNS: Temperature is 97.6, pulse 82, blood pressure 110/42. GENERAL APPEARANCE: No acute distress. HEAD AND NECK: [place] conjunctivae. HEART: Normal rate. LUNGS: Clear. ABDOMEN: Soft, nontender. EXTREMITIES: Have AV graft in the left upper extremity, has peripheral line in right upper extremity, has edema of right upper extremity. NEUROLOGIC: Awake, responsive. LABORATORY AND DIAGNOSTIC DATA: WBC today is 9.4, hemoglobin 9.1, hematocrit 29.5, platelets is 108,000. Lactic acid is 3.3. Sodium 142, potassium 5, chloride 102, bicarbonate 27, BUN 31, creatinine 4.4, glucose 162. Troponin 3.5. BNP more than 35,000. Chest x-ray showed small right pleural effusion and right basilar atelectasis with no change. IMPRESSION: 1. Leukocytosis, improving. 2. Lactic acidosis. We will try to rule out. 3. Sepsis. 4. Erb-IK-jvswdjldj TN. 5. End-stage renal disease, on hemodialysis. 6. Diabetes mellitus, type 2. 7. Hypertension. 8. BPH. 9. Systolic CHF with ejection fraction of 40%. RECOMMENDATIONS: Continue current antibiotics, vancomycin, and Zosyn. If the culture remains negative, we will stop antibiotic. At the end of my exam, I thank Dr. García for involving me in the care of this patient. Boyd Tee M.D. DR: DOMINICK JOB#: [id number] CC: [facility]
--- NOTE | 2019-03-09 18:38 | General Progress Note ---
Assessment/Plan Assessment/Plan: NSTEMI renal failure diabeters persistent hypoglycemia ho pneumonia ho elevated lactic acid htn hld check echo cards fup placed on d10 all diabetic meds hld endo eval dialysis dependint check cultures empiric abx dc per ID dvt and ulcer prophylaxis Subjective Allergies: Coded Allergies: No Known Allergies (Unverified , 05/25/13) Subjective overnight bs have been low persistently tranfered to POLINA for further montioring diabetes meds dcd no chest painor sob pos agitation Objective Last 24 Hour Vital Signs Date Time Temp Pulse Resp B/P (MAP) Pulse Ox O2 Delivery O2 Flow Rate FiO2 03/09/19 17:43 125/55 03/09/19 16:00 97.6 73 20 115/60 (78) 100 03/09/19 15:19 77 03/09/19 15:07 115/60 03/09/19 12:00 97.2 70 18 130/93 (105) 100 03/09/19 11:35 70 03/09/19 09:00 Nasal Cannula 2.0 03/09/19 08:06 82 03/09/19 08:00 97.6 79 20 110/42 (64) 94 03/09/19 04:00 86 03/09/19 04:00 97.6 81 20 114/67 (83) 95 03/09/19 00:00 97.8 75 20 101/69 (80) 96 03/09/19 00:00 74 03/08/19 21:00 Nasal Cannula 2.0 03/08/19 20:00 72 03/08/19 20:00 98.0 75 20 116/55 (75) 100 Intake and Output 03/08/19 03/09/19 19:00 07:00 Intake Total 120 ml Balance 120 ml Intake Oral 120 ml # Voids 1 Laboratory Tests 03/09/19 11:08: White Blood Count 9.4, Red Blood Count 2.88L, Hemoglobin 9.1L, Hematocrit 29.5L , Mean Corpuscular Volume 103H, Mean Corpuscular Hemoglobin 31.8H, Mean Corpuscular Hemoglobin Concent 30.9L, Red Cell Distribution Width 15.9H, Platelet Count 108L, Mean Platelet Volume 7.7, Neutrophils (%) (Auto) , Lymphocytes (%) (Auto) , Monocytes (%) (Auto) , Eosinophils (%) (Auto) , Basophils (%) (Auto) , Differential Total Cells Counted 100, Neutrophils % ( Manual) 86H, Lymphocytes % (Manual) 7L, Monocytes % (Manual) 7, Eosinophils % ( Manual) 0, Basophils % (Manual) 0, Band Neutrophils 0, Platelet Estimate DecreasedL, Platelet Morphology Normal, Hypochromasia 1+, Anisocytosis 1+, Macrocytosis 1+, Sodium Level 141, Potassium Level 4.4, Chloride Level 102, Carbon Dioxide Level 26, Anion Gap 13, Blood Urea Nitrogen 52H, Creatinine 6.1H , Estimat Glomerular Filtration Rate , Glucose Level 90, Hemoglobin A1c 5.7, Lactic Acid Level 1.80, Uric Acid 5.5, Calcium Level 7.7L, Phosphorus Level 8.1H , Magnesium Level 2.0, Total Bilirubin 0.5, Aspartate Amino Transf (AST/SGOT) 83H, Alanine Aminotransferase (ALT/SGPT) 54, Alkaline Phosphatase 154H, Troponin I 3.046H, Total Protein 7.0, Albumin 3.0L, Globulin 4.0, Albumin/ Globulin Ratio 0.8L, Triglycerides Level 20L, Cholesterol Level 76, LDL Cholesterol 19, HDL Cholesterol 50, Cholesterol/HDL Ratio 1.5L, Thyroid Stimulating Hormone (TSH) 5.477H Height (Feet): 5 Height (Inches): 5.00 Weight (Pounds): 154 General Appearance: WD/WN Neck: supple Cardiovascular: normal rate Respiratory/Chest: lungs clear Viktor García MD Mar 09, 2019 18:38
--- NOTE | 2019-03-09 19:00 | NUR ---
NURSE NOTES: Pt report received from Katiuska Hollingsworth RN SDU. pt appears stable. pt is alert and oriented times 1. pt is on vice president digital strategist able to show NSR, no cardiac abnormalities noted. pt is on 2 L NC, satting at 100% no resp distress noted. pt bed is low, locked, armed, call light within reach, bed is armed, will follow plan of care.
--- NOTE | 2019-03-09 19:14 | NUR ---
HAND-OFF: Report given to Uziel Walker RN. Endorsed plan of care. Patient in stable condition.
--- NOTE | 2019-03-09 19:21 | NUR ---
CASE MANAGEMENT: INITIAL REVIEW 83 YO M JANUSZ FROM HOME CC: DIZZINESS PMHx: HD MWF, HD, DM, SI:NSTEMI T 98.4 HR 84 RR 16 B/P 106/62 SATS 97% ON RA WBC 12.3 BUN 31 CR 4.4 GLU 162 LACTIC ACID 3.8 CA 8.4 AST 74 ALP 189 TROPONIN 0.758 BNP >35K IS: ASA PO X1 LOVENOX SUBQ X1 NS BOLUS X1 PATIENT ADMITTED TO SDU 03/08/2019 @ 0232 DCP: PATIENT TO BE DISCHARGED TO HOME ONCE MEDICALLY CLEARED. PLAN OF CARE: CARDIO AND NEPHRO CONSULT Addendum: 03/09/19 at 1931 by Tammi Granados CM INTERQUAL MET
[2019-03-09 20:00] VITALS: BP 123/61
[2019-03-09] MEDS: Tamsulosin 0.4mg cap ORAL SCH (20:37)
[2019-03-09] MEDS: Atorvastatin 20mg tab ORAL SCH (20:37)
[2019-03-10] VITALS: BP 127/57
[2019-03-10] MEDS: guaiFENesin w/Codeine 5ml Liq ud ORAL PRN (03:09)
[2019-03-10 04:00] VITALS: BP 121/76
[2019-03-10 04:12] LABS: HEMATOCRIT 27.4 % (42.0-52.0); HEMOGLOBIN 8.6 G/DL (14.2-18.0); MEAN CORPUSCULAR VOLUME 102 FL (80-99); PLATELET COUNT 107 K/UL (150-450); RED CELL DISTRIBUTION WIDTH 15.5 % (11.6-14.8); WHITE BLOOD COUNT 9.3 K/UL (4.8-10.8)
[2019-03-10 04:38] LABS: ALANINE AMINOTRANSFERASE 52 U/L (12-78); ALBUMIN/GLOBULIN RATIO 0.8 (1.0-2.7); ALKALINE PHOSPHATASE 151 U/L (46-116); ANION GAP 15 mmol/L (5-15); ASPARTATE AMINO TRANSFERASE 81 U/L (15-37); BILIRUBIN,TOTAL 0.5 MG/DL (0.2-1.0); BLOOD UREA NITROGEN 60 mg/dL (7-18); CALCIUM 7.6 MG/DL (8.5-10.1); CARBON DIOXIDE 24 MMOL/L (21-32); CHLORIDE 101 MMOL/L (98-107); CREATININE 6.6 MG/DL (0.55-1.30); PHOSPHORUS 9.6 MG/DL (2.5-4.9); POTASSIUM 4.5 MMOL/L (3.5-5.1); SODIUM 140 MMOL/L (136-145)
[2019-03-10] MEDS: Piperacillin/Tazobactam 2.25 GM in NS 110 ML IV SCH (05:09)
--- NOTE | 2019-03-10 06:56 | NUR ---
HAND-OFF: Report given to JAVIER Miller RN. Pt remains stable. .
--- NOTE | 2019-03-10 07:05 | NUR ---
NURSE NOTES: Report received from Uziel Michelle RN.Pt sleeping quietly in bed but awakens easily,opens eyes, less confused and able to follow simple commands, noted no resp distress but very congested,denies any c/o chest pain or discomfort,SR on the monitor.skin warm and dry with IV to VITOR ,D10 at 30 ml/hr,site intact,SR up x2 HOB elevate,bed lock in lowest position will continue with plans of care.
[2019-03-10 08:00] VITALS: BP 117/64
[2019-03-10] MEDS: Aspirin Baby 81mg ORAL SCH (09:08)
[2019-03-10] MEDS: Eliquis 2.5mg tablet ORAL SCH ×2 (09:08→18:37)
[2019-03-10] MEDS: Docusate 100mg cap ORAL SCH ×3 (09:08→18:36)
[2019-03-10] MEDS: Flonase Nasal Inhaler 16gm NASAL SCH (09:14)
--- NOTE | 2019-03-10 09:50 | NUR ---
NURSE NOTES: Called pt's daughter Jasmin for Hemodialysis consent,given thru telephone.
--- NOTE | 2019-03-10 10:00 | NUR ---
PT EVALUATION NOTE Patient seen for initial evaluation. Patient presents with generalized weakness, decreased safety awareness and impaired balance which affects patient's ability to perform mobility tasks safely. Patient requires min assist for bed mobility and CGA for transfers with FWW. Patient able to ambulate 20 ft with min assist and FWW. Patient will benefit from skilled inpatient PT intervention to address strength, balance and safety for improved level of functional mobility. Recommend discharge to SNF for short term rehab vs home with home PT once medically cleared by MD. Recommend FWW for ambulation. Addendum: 03/10/19 at 1251 by TESS FUENTES PT Amended: Links added.
--- NOTE | 2019-03-10 10:41 | Cardiac Electrophysiology PN ---
Assessment/Plan Assessment/Plan 1. Troponin elevation, could be due to renal failure. Troponin peak is however at 3.5 that is coming down to 1.9. No CP or SOB. EKG no acute changes. EF 40-45% On aspirin, Coreg 3.125 bid and Lipitor. Likely needs cardiac cath specially in view of EF 40% after sepsis is resolved and if he agrees DC Isordil as no CP 2. Cardiomyopathy with EF of 40%. BNP is more than 35,000. His echo on 2018 with an EF of 55% to 60%, however repeat echocardiogram showed EF 40%. Add Coreg, Lisiniorpil 10 daily and HD 3. ? PAF on Eliquis for anticoagulation. 4. End-stage renal disease, on hemodialysis. 5. Lactic acidosis. 6. Hyperlipidemia, on Lipitor. SEB RN on Dr. García Subjective Subjective Alert in NAD. scheduled for HD today Objective Last 24 Hour Vital Signs Date Time Temp Pulse Resp B/P (MAP) Pulse Ox O2 Delivery O2 Flow Rate FiO2 03/10/19 08:00 96.6 62 20 117/64 (81) 100 03/10/19 05:09 133/66 03/10/19 04:00 97.2 76 21 121/76 (91) 100 03/10/19 04:00 74 03/10/19 03:09 161/72 03/10/19 00:00 72 03/10/19 00:00 97.6 73 21 127/57 (80) 99 03/09/19 23:21 127/57 03/09/19 21:00 Nasal Cannula 2.0 03/09/19 20:00 97.8 82 19 123/61 (81) 98 03/09/19 20:00 80 03/09/19 17:43 125/55 03/09/19 16:00 97.6 73 20 115/60 (78) 100 03/09/19 15:19 77 03/09/19 15:07 115/60 03/09/19 12:00 97.2 70 18 130/93 (105) 100 03/09/19 11:35 70 Intake and Output 03/09/19 03/10/19 19:00 07:00 Intake Total 663.75 ml 580 ml Balance 663.75 ml 580 ml Intake Oral 150 ml IV Total 513.75 ml 580 ml # Voids 1 Laboratory Tests Test 03/09/19 11:08 03/10/19 03:40 White Blood Count 9.4 K/UL (4.8-10.8) 9.3 K/UL (4.8-10.8) Red Blood Count 2.88 M/UL (4.70-6.10) L 2.70 M/UL (4.70-6.10) L Hemoglobin 9.1 G/DL (14.2-18.0) L 8.6 G/DL (14.2-18.0) L Hematocrit 29.5 % (42.0-52.0) L 27.4 % (42.0-52.0) L Mean Corpuscular Volume 103 FL (80-99) H 102 FL (80-99) H Mean Corpuscular Hemoglobin 31.8 PG (27.0-31.0) H 31.7 PG (27.0-31.0) H Mean Corpuscular Hemoglobin Concent 30.9 G/DL (32.0-36.0) L 31.2 G/DL (32.0-36.0) L Red Cell Distribution Width 15.9 % (11.6-14.8) H 15.5 % (11.6-14.8) H Platelet Count 108 K/UL (150-450) L 107 K/UL (150-450) L Mean Platelet Volume 7.7 FL (6.5-10.1) 7.2 FL (6.5-10.1) Neutrophils (%) (Auto) % (45.0-75.0) % (45.0-75.0) Lymphocytes (%) (Auto) % (20.0-45.0) % (20.0-45.0) Monocytes (%) (Auto) % (1.0-10.0) % (1.0-10.0) Eosinophils (%) (Auto) % (0.0-3.0) % (0.0-3.0) Basophils (%) (Auto) % (0.0-2.0) % (0.0-2.0) Differential Total Cells Counted 100 Neutrophils % (Manual) 86 % (45-75) H Lymphocytes % (Manual) 7 % (20-45) L Monocytes % (Manual) 7 % (1-10) Eosinophils % (Manual) 0 % (0-3) Basophils % (Manual) 0 % (0-2) Band Neutrophils 0 % (0-8) Platelet Estimate Decreased L Platelet Morphology Normal Hypochromasia 1+ Anisocytosis 1+ Macrocytosis 1+ Sodium Level 141 MMOL/L (136-145) 140 MMOL/L (136-145) Potassium Level 4.4 MMOL/L (3.5-5.1) 4.5 MMOL/L (3.5-5.1) Chloride Level 102 MMOL/L (98-107) 101 MMOL/L (98-107) Carbon Dioxide Level 26 MMOL/L (21-32) 24 MMOL/L (21-32) Anion Gap 13 mmol/L (5-15) 15 mmol/L (5-15) Blood Urea Nitrogen 52 mg/dL (7-18) H 60 mg/dL (7-18) H Creatinine 6.1 MG/DL (0.55-1.30) H 6.6 MG/DL (0.55-1.30) H Estimat Glomerular Filtration Rate mL/min (>60) mL/min (>60) Glucose Level 90 MG/DL (74-106) 104 MG/DL (74-106) Hemoglobin A1c 5.7 % (4.3-6.0) Lactic Acid Level 1.80 mmol/L (0.4-2.0) 2.30 mmol/L (0.4-2.0) H Uric Acid 5.5 MG/DL (2.6-7.2) Calcium Level 7.7 MG/DL (8.5-10.1) L 7.6 MG/DL (8.5-10.1) L Phosphorus Level 8.1 MG/DL (2.5-4.9) H 9.6 MG/DL (2.5-4.9) H Magnesium Level 2.0 MG/DL (1.8-2.4) 2.0 MG/DL (1.8-2.4) Total Bilirubin 0.5 MG/DL (0.2-1.0) 0.5 MG/DL (0.2-1.0) Aspartate Amino Transf (AST/SGOT) 83 U/L (15-37) H 81 U/L (15-37) H Alanine Aminotransferase (ALT/SGPT) 54 U/L (12-78) 52 U/L (12-78) Alkaline Phosphatase 154 U/L (46-116) H 151 U/L (46-116) H Troponin I 3.046 ng/mL (0.000-0.056) 1.903 ng/mL (0.000-0.056) Total Protein 7.0 G/DL (6.4-8.2) 6.8 G/DL (6.4-8.2) Albumin 3.0 G/DL (3.4-5.0) L 3.0 G/DL (3.4-5.0) L Globulin 4.0 g/dL 3.8 g/dL Albumin/Globulin Ratio 0.8 (1.0-2.7) L 0.8 (1.0-2.7) L Triglycerides Level 20 MG/DL (30-150) L Cholesterol Level 76 MG/DL (< 200) LDL Cholesterol 19 mg/dL (<100) HDL Cholesterol 50 MG/DL (40-60) Cholesterol/HDL Ratio 1.5 (3.3-4.4) L Thyroid Stimulating Hormone (TSH) 5.477 uiU/mL (0.358-3.740) C-Reactive Protein, Quantitative 17.2 mg/dL (0.00-0.90) H Pro-B-Type Natriuretic Peptide > 73956 pg/mL (0-125) H Microbiology Date/Time Source Procedure Growth Status 03/08/19 05:30 Rectum Received Objective HEAD AND NECK: No JVD. LUNGS: Clear. CARDIOVASCULAR: Regular S1 and S2 with no gallop or murmur. ABDOMEN: Soft. EXTREMITIES: No pitting edema. Dialysis access in the left arm. Dariel Corcoran MD Mar 10, 2019 10:41
--- NOTE | 2019-03-10 11:00 | NUR ---
NURSE NOTES: Hemodialysis nurse at bedside,with ongoing hemodialysi,tolerating well no distress presented.
--- NOTE | 2019-03-10 11:30 | Nephrology Progress Note ---
Assessment/Plan Problem List: (1) ESRD (end stage renal disease) on dialysis (2) Cardiomyopathy (3) NSTEMI (non-ST elevated myocardial infarction) Assessment: Troponin lowering Assessment ESRD HTN Anemia DM CAD- Cardiomyopathy s/p SEPSIS NC Plan recent 2D echo 40% EjFx Pulm Toilet HD 03/10/2019 Keep BP in check - Hold bp meds for now due to low BP Albumin bolus ASA Nitrate per consultants per orders Subjective ROS Limited/Unobtainable: No Constitutional: Reports: malaise, weakness Objective Objective Last 24 Hour Vital Signs Date Time Temp Pulse Resp B/P (MAP) Pulse Ox O2 Delivery O2 Flow Rate FiO2 03/10/19 09:00 Nasal Cannula 2.0 03/10/19 08:00 65 03/10/19 08:00 96.6 62 20 117/64 (81) 100 03/10/19 05:09 133/66 03/10/19 04:00 97.2 76 21 121/76 (91) 100 03/10/19 04:00 74 03/10/19 03:09 161/72 03/10/19 00:00 72 03/10/19 00:00 97.6 73 21 127/57 (80) 99 03/09/19 23:21 127/57 03/09/19 21:00 Nasal Cannula 2.0 03/09/19 20:00 97.8 82 19 123/61 (81) 98 03/09/19 20:00 80 03/09/19 17:43 125/55 03/09/19 16:00 97.6 73 20 115/60 (78) 100 03/09/19 15:19 77 03/09/19 15:07 115/60 03/09/19 12:00 97.2 70 18 130/93 (105) 100 03/09/19 11:35 70 Intake and Output 03/09/19 03/10/19 19:00 07:00 Intake Total 663.75 ml 580 ml Balance 663.75 ml 580 ml Intake Oral 150 ml IV Total 513.75 ml 580 ml # Voids 1 Laboratory Tests 03/10/19 03:40: White Blood Count 9.3, Red Blood Count 2.70L, Hemoglobin 8.6L, Hematocrit 27.4L , Mean Corpuscular Volume 102H, Mean Corpuscular Hemoglobin 31.7H, Mean Corpuscular Hemoglobin Concent 31.2L, Red Cell Distribution Width 15.5H, Platelet Count 107L, Mean Platelet Volume 7.2, Neutrophils (%) (Auto) , Lymphocytes (%) (Auto) , Monocytes (%) (Auto) , Eosinophils (%) (Auto) , Basophils (%) (Auto) , Sodium Level 140, Potassium Level 4.5, Chloride Level 101 , Carbon Dioxide Level 24, Anion Gap 15, Blood Urea Nitrogen 60H, Creatinine 6.6H, Estimat Glomerular Filtration Rate , Glucose Level 104, Lactic Acid Level 2.30H, Calcium Level 7.6L, Phosphorus Level 9.6H, Magnesium Level 2.0, Total Bilirubin 0.5, Aspartate Amino Transf (AST/SGOT) 81H, Alanine Aminotransferase ( ALT/SGPT) 52, Alkaline Phosphatase 151H, Troponin I 1.903H, C-Reactive Protein, Quantitative 17.2H, Pro-B-Type Natriuretic Peptide > 10666M, Total Protein 6.8, Albumin 3.0L, Globulin 3.8, Albumin/Globulin Ratio 0.8L Height (Feet): 5 Height (Inches): 5.00 Weight (Pounds): 157 General Appearance: no apparent distress Cardiovascular: normal rate Respiratory/Chest: decreased breath sounds Abdomen: distended Mikey Brandt MD Mar 10, 2019 11:30
[2019-03-10 12:00] VITALS: BP 123/65
--- NOTE | 2019-03-10 12:46 | Consultation ---
DATE OF CONSULTATION: 03/09/2019 ENDOCRINOLOGY CONSULTATION CONSULTING PHYSICIAN: Tay Bloom M.D. REFERRING PHYSICIAN: Viktor García M.D. REASON FOR CONSULTATION: I was asked to see this 83-year-old male by Dr. Viktor García in endocrinology consultation for evaluation and management persistent hyperglycemia in type 2 diabetic patient. PERRTINENT HISTORY: The patient had been diabetic for several years _and put on dialysis She is on Leeevemir 10u s qam. FAMILY HISTORY: Unremarkable. PERSONAL HISTORY: Negative for tobacco abuse. REVIEW OF SYSTEMS: A 14-point review is unremarkable. PHYSICAL EXAMINATION: GENERAL: The patient is in no acute distress. VITAL SIGNS: Blood pressure 140/75, pulse 75, respiratory rate 20, temperature 97.2 degrees. HEAD AND NECK: Unremarkable. LUNGS: Clear. HEART: Heart sounds regular. ABDOMEN: Soft. Bowel sounds present. EXTREMITIES: _graft intact____. NEUROLOGIC: Cranial nerves II through XII are grossly intact with toes downgoing to plantar stimulation. LABORATORY DATA: Glucose 186_. ASSESSMENT: 1. Diabetes mellitus type 2, controlled. 2. ESRD on dialysis. PLAN: Continu dialysis.D10 30 cc/hr/He has poor oral intake_in this_ dialysis patient Hba1c in am. Tay Bloom M.D. DR: SUZIE JOB#: [id number] CC: [facility]
--- NOTE | 2019-03-10 13:21 | Infectious Diseases Prog Note ---
Assessment/Plan Assessment/Plan IMPRESSION: 1. Leukocytosis, resolved 2. Lactic acidosis. 3.Doubt sepsis 4. [id number] TX. 5. End-stage renal disease, on hemodialysis. 6. Diabetes mellitus, type 2. 7. Hypertension. 8. BPH. 9. Systolic CHF with ejection fraction of 40%. RECOMMENDATIONS: Discontinue vancomycin, and Zosyn Subjective ROS Limited/Unobtainable: Yes Constitutional: Denies: fever Genitourinary: Reports: other - on bedside HD Allergies: Coded Allergies: No Known Allergies (Unverified , 05/25/13) Objective Vital Signs Last 24 Hour Vital Signs Date Time Temp Pulse Resp B/P (MAP) Pulse Ox O2 Delivery O2 Flow Rate FiO2 03/10/19 12:00 96.6 75 21 123/65 (84) 100 03/10/19 12:00 67 03/10/19 09:00 Nasal Cannula 2.0 03/10/19 08:00 65 03/10/19 08:00 96.6 62 20 117/64 (81) 100 03/10/19 05:09 133/66 03/10/19 04:00 97.2 76 21 121/76 (91) 100 03/10/19 04:00 74 03/10/19 03:09 161/72 03/10/19 00:00 72 03/10/19 00:00 97.6 73 21 127/57 (80) 99 03/09/19 23:21 127/57 03/09/19 21:00 Nasal Cannula 2.0 03/09/19 20:00 97.8 82 19 123/61 (81) 98 03/09/19 20:00 80 03/09/19 17:43 125/55 03/09/19 16:00 97.6 73 20 115/60 (78) 100 03/09/19 15:19 77 03/09/19 15:07 115/60 Height (Feet): 5 Height (Inches): 5.00 Weight (Pounds): 157 General Appearance: no acute distress HEENT: mucous membranes moist Respiratory/Chest: lungs clear Cardiovascular: normal rate, other - left arm AV graft Abdomen: soft, non tender Extremities: no edema Neurologic/Psychiatric: other - sleeping Microbiology Date/Time Source Procedure Growth Status 03/08/19 05:30 Rectum Received Laboratory Tests Test 03/10/19 03:40 White Blood Count 9.3 K/UL (4.8-10.8) Red Blood Count 2.70 M/UL (4.70-6.10) L Hemoglobin 8.6 G/DL (14.2-18.0) L Hematocrit 27.4 % (42.0-52.0) L Mean Corpuscular Volume 102 FL (80-99) H Mean Corpuscular Hemoglobin 31.7 PG (27.0-31.0) H Mean Corpuscular Hemoglobin Concent 31.2 G/DL (32.0-36.0) L Red Cell Distribution Width 15.5 % (11.6-14.8) H Platelet Count 107 K/UL (150-450) L Mean Platelet Volume 7.2 FL (6.5-10.1) Neutrophils (%) (Auto) % (45.0-75.0) Lymphocytes (%) (Auto) % (20.0-45.0) Monocytes (%) (Auto) % (1.0-10.0) Eosinophils (%) (Auto) % (0.0-3.0) Basophils (%) (Auto) % (0.0-2.0) Sodium Level 140 MMOL/L (136-145) Potassium Level 4.5 MMOL/L (3.5-5.1) Chloride Level 101 MMOL/L (98-107) Carbon Dioxide Level 24 MMOL/L (21-32) Anion Gap 15 mmol/L (5-15) Blood Urea Nitrogen 60 mg/dL (7-18) H Creatinine 6.6 MG/DL (0.55-1.30) H Estimat Glomerular Filtration Rate mL/min (>60) Glucose Level 104 MG/DL (74-106) Lactic Acid Level 2.30 mmol/L (0.4-2.0) H Calcium Level 7.6 MG/DL (8.5-10.1) L Phosphorus Level 9.6 MG/DL (2.5-4.9) H Magnesium Level 2.0 MG/DL (1.8-2.4) Total Bilirubin 0.5 MG/DL (0.2-1.0) Aspartate Amino Transf (AST/SGOT) 81 U/L (15-37) H Alanine Aminotransferase (ALT/SGPT) 52 U/L (12-78) Alkaline Phosphatase 151 U/L (46-116) H Troponin I 1.903 ng/mL (0.000-0.056) C-Reactive Protein, Quantitative 17.2 mg/dL (0.00-0.90) H Pro-B-Type Natriuretic Peptide > 77351 pg/mL (0-125) H Total Protein 6.8 G/DL (6.4-8.2) Albumin 3.0 G/DL (3.4-5.0) L Globulin 3.8 g/dL Albumin/Globulin Ratio 0.8 (1.0-2.7) L Hepatitis B Surface Antigen Pending Current Medications Medications (Trade) Dose Ordered Sig/Stephany Route PRN Reason Start Time Stop Time Status Last Admin Dose Admin Acetaminophen (Tylenol) 650 mg Q6H PRN ORAL Mild Pain/Temp > 100.5 03/09/19 07:01 04/07/19 07:00 03/10/19 03:10 Apixaban (Eliquis) 2.5 mg BID ORAL 03/09/19 09:00 04/07/19 08:59 03/10/19 09:08 Aspirin (ASA) 81 mg DAILY ORAL 03/09/19 09:00 04/07/19 08:59 03/10/19 09:08 Atorvastatin Calcium (Lipitor) 20 mg BEDTIME ORAL 03/09/19 21:00 04/07/19 20:59 03/09/19 20:37 Carvedilol (Coreg) 3.125 mg EVERY 12 HOURS ORAL 03/10/19 21:00 04/09/19 20:59 Dextrose 1,000 ml @ 30 mls/hr Q24H IV 03/09/19 14:07 04/08/19 14:06 03/09/19 14:15 Dextrose (Dextrose 50%) 25 ml Q30M PRN IV Hypoglycemia 03/09/19 07:00 04/07/19 06:59 Dextrose (Dextrose 50%) 50 ml Q30M PRN IV Hypoglycemia 03/09/19 07:00 04/07/19 06:59 Docusate Sodium (Colace) 100 mg TID ORAL 03/09/19 09:00 04/07/19 08:59 03/10/19 09:08 Ergocalciferol (Drisdol) 50,000 intlu ONCE A WEEK ORAL 03/15/19 18:00 04/07/19 17:59 Finasteride (Proscar) 5 mg DAILY ORAL 03/09/19 09:00 04/07/19 08:59 03/10/19 09:08 Fluticasone Propionate (Flonase) 2 spray DAILY NASAL 03/09/19 09:00 04/07/19 08:59 03/10/19 09:14 Guaifenesin/ Codeine Phosphate (Robitussin with codeine) 5 ml Q4H PRN ORAL For Cough 03/09/19 07:00 04/07/19 06:59 03/10/19 03:09 Hydralazine HCl (Apresoline) 25 mg Q4H PRN ORAL bp over 160 syst 03/09/19 07:03 04/07/19 07:02 03/10/19 03:09 Lisinopril (ZestriL) 10 mg DAILY ORAL 03/11/19 09:00 04/10/19 08:59 Nitroglycerin (Ntg) 1 patch Q24H TDERMAL 03/09/19 14:30 04/08/19 14:29 03/09/19 15:07 Ondansetron HCl (Zofran) 4 mg Q4H PRN IVP Nausea & Vomiting 03/09/19 07:03 04/08/19 07:02 03/10/19 03:09 Pantoprazole (Protonix) 40 mg BID ORAL 03/09/19 09:00 04/07/19 06:59 03/10/19 09:07 Piperacillin Sod/ Tazobactam Sod 2.25 gm/Dextrose 55 ml @ 110 mls/hr Q8HR IV 03/10/19 14:00 03/15/19 13:59 Sevelamer Carbonate (Renvela) 1,600 mg THREE TIMES A DAY ORAL 03/10/19 13:00 04/08/19 12:59 Tamsulosin HCl (Flomax) 0.4 mg BEDTIME ORAL 03/09/19 21:00 04/07/19 20:59 03/09/19 20:37 Vancomycin HCl (Vanco rx to dose) 1 ea DAILY PRN MISC Per rx protocol 03/09/19 09:00 04/08/19 03:44 Boyd Tee MD Mar 10, 2019 13:21
[2019-03-10] MEDS ORDERED: Zosyn 2.25 gm in D5W 55ml IV SCH (14:00)
--- NOTE | 2019-03-10 14:05 | NUR ---
NURSE NOTES: HD done removed 4 L out.
[2019-03-10] MEDS: Dextrose 10% 1,000 ML IV SCH ×2 (14:07→22:53)
--- NOTE | 2019-03-10 14:11 | Pulmonology Progress Note ---
Assessment/Plan Problems: (1) NSTEMI (non-ST elevated myocardial infarction) (2) ESRD (end stage renal disease) on dialysis (3) Cardiomyopathy (4) HTN (hypertension) (5) HLD (hyperlipidemia) (6) CVA (cerebral vascular accident) Assessment/Plan ASSESSMENT: The patient is an 83-year-old male with a history of prior CVA, end -stage renal disease, on dialysis, hypertension, hyperlipidemia, CAD, CVA, and BPH presenting with dizziness and [id number] OR. He is fairly stable from a respiratory standpoint. PROBLEM LIST: 1. Non ST-elevation myocardial infarction. 2. Recent pneumonia. 3. Dizziness. 4. End-stage renal disease, on dialysis. 5. CAD. 6. Hypertension. 7. Hyperlipidemia. 8. Anemia. 9. Diabetes. TREATMENT PLAN: 1. Optimize pulmonary hygiene/mobilize as tolerated. 2. Titrate O2 3. P.r.n. bronchodilators. 4. Observe off antibiotics per ID 5. Follow up Cardiology recommendations, medical management of non-STEMI. 6. Monitor BP, anti-hypertensives held, PRN boluses 7. Continue Eliquis 8. D10 gtt, monitor BS 9. Monitor volumes and renal function, dialysis per Renal. Subjective Allergies: Coded Allergies: No Known Allergies (Unverified , 05/25/13) Subjective NAEO AFVSS O2 needs stable @ 2L + SOB no cough no CP no FC Objective Last 24 Hour Vital Signs Date Time Temp Pulse Resp B/P (MAP) Pulse Ox O2 Delivery O2 Flow Rate FiO2 03/10/19 12:00 96.6 75 21 123/65 (84) 100 03/10/19 12:00 67 03/10/19 09:00 Nasal Cannula 2.0 03/10/19 08:00 65 03/10/19 08:00 96.6 62 20 117/64 (81) 100 03/10/19 05:09 133/66 03/10/19 04:00 97.2 76 21 121/76 (91) 100 03/10/19 04:00 74 03/10/19 03:09 161/72 03/10/19 00:00 72 03/10/19 00:00 97.6 73 21 127/57 (80) 99 03/09/19 23:21 127/57 1/12/20 21:00 Nasal Cannula 2.0 03/09/19 20:00 97.8 82 19 123/61 (81) 98 03/09/19 20:00 80 03/09/19 17:43 125/55 03/09/19 16:00 97.6 73 20 115/60 (78) 100 03/09/19 15:19 77 03/09/19 15:07 115/60 Intake and Output 03/09/19 03/10/19 19:00 07:00 Intake Total 663.75 ml 580 ml Balance 663.75 ml 580 ml Intake Oral 150 ml IV Total 513.75 ml 580 ml # Voids 1 General Appearance: no acute distress, cachetic HEENT: normocephalic, atraumatic, anicteric, mucous membranes moist Respiratory/Chest: crackles/rales, rhonchi Cardiovascular: normal peripheral pulses, normal rate, regular rhythm Abdomen: normal bowel sounds, soft, non tender, no organomegaly, non distended , no mass Extremities: no cyanosis, no clubbing, no edema Microbiology Date/Time Source Procedure Growth Status 03/08/19 05:30 Rectum Received Laboratory Tests 03/10/19 03:40: White Blood Count 9.3, Red Blood Count 2.70L, Hemoglobin 8.6L, Hematocrit 27.4L , Mean Corpuscular Volume 102H, Mean Corpuscular Hemoglobin 31.7H, Mean Corpuscular Hemoglobin Concent 31.2L, Red Cell Distribution Width 15.5H, Platelet Count 107L, Mean Platelet Volume 7.2, Neutrophils (%) (Auto) , Lymphocytes (%) (Auto) , Monocytes (%) (Auto) , Eosinophils (%) (Auto) , Basophils (%) (Auto) , Sodium Level 140, Potassium Level 4.5, Chloride Level 101 , Carbon Dioxide Level 24, Anion Gap 15, Blood Urea Nitrogen 60H, Creatinine 6.6H, Estimat Glomerular Filtration Rate , Glucose Level 104, Lactic Acid Level 2.30H, Calcium Level 7.6L, Phosphorus Level 9.6H, Magnesium Level 2.0, Total Bilirubin 0.5, Aspartate Amino Transf (AST/SGOT) 81H, Alanine Aminotransferase ( ALT/SGPT) 52, Alkaline Phosphatase 151H, Troponin I 1.903H, C-Reactive Protein, Quantitative 17.2H, Pro-B-Type Natriuretic Peptide > 23936A, Total Protein 6.8, Albumin 3.0L, Globulin 3.8, Albumin/Globulin Ratio 0.8L, Hepatitis B Surface Antigen [Pending] Current Medications Medications (Trade) Dose Ordered Sig/Stephany Route PRN Reason Start Time Stop Time Status Last Admin Dose Admin Acetaminophen (Tylenol) 650 mg Q6H PRN ORAL Mild Pain/Temp > 100.5 03/09/19 07:01 04/07/19 07:00 03/10/19 03:10 Apixaban (Eliquis) 2.5 mg BID ORAL 03/09/19 09:00 04/07/19 08:59 03/10/19 09:08 Aspirin (ASA) 81 mg DAILY ORAL 03/09/19 09:00 04/07/19 08:59 03/10/19 09:08 Atorvastatin Calcium (Lipitor) 20 mg BEDTIME ORAL 03/09/19 21:00 04/07/19 20:59 03/09/19 20:37 Carvedilol (Coreg) 3.125 mg EVERY 12 HOURS ORAL 03/10/19 21:00 04/09/19 20:59 Dextrose 1,000 ml @ 30 mls/hr Q24H IV 03/09/19 14:07 04/08/19 14:06 03/09/19 14:15 Dextrose (Dextrose 50%) 25 ml Q30M PRN IV Hypoglycemia 03/09/19 07:00 04/07/19 06:59 Dextrose (Dextrose 50%) 50 ml Q30M PRN IV Hypoglycemia 03/09/19 07:00 04/07/19 06:59 Docusate Sodium (Colace) 100 mg TID ORAL 03/09/19 09:00 04/07/19 08:59 03/10/19 09:08 Ergocalciferol (Drisdol) 50,000 intlu ONCE A WEEK ORAL 03/15/19 18:00 04/07/19 17:59 Finasteride (Proscar) 5 mg DAILY ORAL 03/09/19 09:00 04/07/19 08:59 03/10/19 09:08 Fluticasone Propionate (Flonase) 2 spray DAILY NASAL 03/09/19 09:00 04/07/19 08:59 03/10/19 09:14 Guaifenesin/ Codeine Phosphate (Robitussin with codeine) 5 ml Q4H PRN ORAL For Cough 03/09/19 07:00 04/07/19 06:59 03/10/19 03:09 Hydralazine HCl (Apresoline) 25 mg Q4H PRN ORAL bp over 160 syst 03/09/19 07:03 04/07/19 07:02 03/10/19 03:09 Lisinopril (ZestriL) 10 mg DAILY ORAL 03/11/19 09:00 04/10/19 08:59 Nitroglycerin (Ntg) 1 patch Q24H TDERMAL 03/09/19 14:30 04/08/19 14:29 03/09/19 15:07 Ondansetron HCl (Zofran) 4 mg Q4H PRN IVP Nausea & Vomiting 03/09/19 07:03 04/08/19 07:02 03/10/19 03:09 Pantoprazole (Protonix) 40 mg BID ORAL 03/09/19 09:00 04/07/19 06:59 03/10/19 09:07 Sevelamer Carbonate (Renvela) 1,600 mg THREE TIMES A DAY ORAL 03/10/19 13:00 04/08/19 12:59 Tamsulosin HCl (Flomax) 0.4 mg BEDTIME ORAL 03/09/19 21:00 04/07/19 20:59 03/09/19 20:37 Thaddeus Cornelius MD Mar 10, 2019 14:11
[2019-03-10] MEDS: Nitroglycerin Patch 0.4mg TDERMAL SCH (15:10)
[2019-03-10 16:00] VITALS: BP 114/59
[2019-03-10] MEDS ORDERED: NS 275ml ONE (16:53)
--- NOTE | 2019-03-10 17:00 | NUR ---
NURSE NOTES: Family members at bedside,updated re pt's status.
--- NOTE | 2019-03-10 19:25 | NUR ---
HAND-OFF: Report given to Tay Bashir RN.
--- NOTE | 2019-03-10 19:26 | NUR ---
NURSE NOTES: Received patient from Melissa Walker RN. Patient is aaox2 with confusion, vss, with no acute distress. Patient on 2L NC, on renal diet, on traffic monitor specialist, and sacral redness. IV on right upper arm 22g, a left upper arm dialysis fistula with bruit and thrill present. Bed at its lowest position, call light in reach and x3 bed rails are up. Will continue to monitor.
[2019-03-10 20:00] VITALS: BP 140/60
[2019-03-10] MEDS: Atorvastatin 20mg tab ORAL SCH (20:42)
[2019-03-10] MEDS: Tamsulosin 0.4mg cap ORAL SCH (20:42)
--- NOTE | 2019-03-10 21:28 | General Progress Note ---
Assessment/Plan Assessment/Plan: NSTEMI renal failure diabeters persistent hypoglycemia ho pneumonia ho elevated lactic acid htn hld echo noted, decreaed EF cards fup dw Dr Corcoran considering cath when off abx endo eval appreciated all diabetic meds held dialysis dependint check cultures empiric abx lactic acid higher today will repeat enrique Burk, on eliquis due to previous stroke paf dvt and ulcer prophylaxis Subjective Allergies: Coded Allergies: No Known Allergies (Unverified , 05/25/13) Subjective more comfortable no cp Objective Last 24 Hour Vital Signs Date Time Temp Pulse Resp B/P (MAP) Pulse Ox O2 Delivery O2 Flow Rate FiO2 03/10/19 20:41 81 142/60 03/10/19 20:00 97.8 80 22 140/60 (86) 100 03/10/19 16:00 80 03/10/19 16:00 97.7 81 19 114/59 (77) 100 03/10/19 15:10 123/65 03/10/19 12:00 96.6 75 21 123/65 (84) 100 03/10/19 12:00 67 03/10/19 09:00 Nasal Cannula 2.0 03/10/19 08:00 65 03/10/19 08:00 96.6 62 20 117/64 (81) 100 03/10/19 05:09 133/66 03/10/19 04:00 97.2 76 21 121/76 (91) 100 03/10/19 04:00 74 03/10/19 03:09 161/72 03/10/19 00:00 72 03/10/19 00:00 97.6 73 21 127/57 (80) 99 03/09/19 23:21 127/57 Intake and Output 03/09/19 03/10/19 19:00 07:00 Intake Total 663.75 ml 580 ml Balance 663.75 ml 580 ml Intake Oral 150 ml IV Total 513.75 ml 580 ml # Voids 1 Laboratory Tests 03/10/19 03:40: White Blood Count 9.3, Red Blood Count 2.70L, Hemoglobin 8.6L, Hematocrit 27.4L , Mean Corpuscular Volume 102H, Mean Corpuscular Hemoglobin 31.7H, Mean Corpuscular Hemoglobin Concent 31.2L, Red Cell Distribution Width 15.5H, Platelet Count 107L, Mean Platelet Volume 7.2, Neutrophils (%) (Auto) , Lymphocytes (%) (Auto) , Monocytes (%) (Auto) , Eosinophils (%) (Auto) , Basophils (%) (Auto) , Sodium Level 140, Potassium Level 4.5, Chloride Level 101 , Carbon Dioxide Level 24, Anion Gap 15, Blood Urea Nitrogen 60H, Creatinine 6.6H, Estimat Glomerular Filtration Rate , Glucose Level 104, Lactic Acid Level 2.30H, Calcium Level 7.6L, Phosphorus Level 9.6H, Magnesium Level 2.0, Total Bilirubin 0.5, Aspartate Amino Transf (AST/SGOT) 81H, Alanine Aminotransferase ( ALT/SGPT) 52, Alkaline Phosphatase 151H, Troponin I 1.903H, C-Reactive Protein, Quantitative 17.2H, Pro-B-Type Natriuretic Peptide > 11576L, Total Protein 6.8, Albumin 3.0L, Globulin 3.8, Albumin/Globulin Ratio 0.8L, Hepatitis B Surface Antigen [Pending] Height (Feet): 5 Height (Inches): 5.00 Weight (Pounds): 157 General Appearance: WD/WN, no apparent distress Neck: supple Cardiovascular: normal rate Respiratory/Chest: lungs clear Abdomen: soft Viktor García MD Mar 10, 2019 21:28
[2019-03-11] VITALS: BP 103/39
--- NOTE | 2019-03-11 | NUR ---
NURSE NOTES: oral suctioned, O2sat is at 96%. HOB, no SOB noted. call light within reach. will continue to monitor pt. Addendum: 03/12/19 at 0807 by WOOD MADRIGAL RN wrong time
[2019-03-11 04:00] VITALS: BP 115/45
--- NOTE | 2019-03-11 04:15 | Consultation ---
DATE OF CONSULTATION: 03/10/2018 CONSULTING PHYSICIAN: Zi Carrera M.D. REFERRING PHYSICIAN: Viktor García M.D. HISTORY OF PRESENT ILLNESS: This is an 83-year-old male with a history of end-stage renal disease, CVA, hypertension, dementia, BPH, diabetes, pneumonia, who has been admitted to the hospital for medical stabilization. The patient had a recent pneumonia and has a history of pleural effusion. The patient presented with agitation and yelling over the weekend. Today during the evaluation, the patient was calm. He has episode of agitation, feeling weak and has poor memory, unable to make any decision, as he is unable to understand, process, communicate, or appreciate information given to him rationally. PAST PSYCHIATRIC HISTORY: Dementia. PAST MEDICAL HISTORY: See above. ALLERGIES: No known drug allergies. SUBSTANCE ABUSE HISTORY: No known history of illicit drug use or alcohol. MENTAL STATUS EXAMINATION: The patient is alert, confused, and disoriented. Mood is agitated. Affect is flat. Thought process, there is a paucity of thought content. Thought content, no suicidal or homicidal ideation. Cognition is impaired. Insight and judgment . ASSESSMENT: Dementia with behavioral disturbance. PLAN: 1. We will start the patient on a low-dose of antipsychotics. 2. The patient lacks capacity to make decisions. His daughter, she makes all the decisions. 3. Provide the patient with reality orientation and supportive therapy. Zi Carrera M.D. DR: REBEKA JOB#: [id number] CC:
[2019-03-11 05:32] LABS: HEMATOCRIT 25.3 % (42.0-52.0); HEMOGLOBIN 8.3 G/DL (14.2-18.0); MEAN CORPUSCULAR VOLUME 101 FL (80-99); PLATELET COUNT 101 K/UL (150-450); RED BLOOD COUNT 2.52 M/UL (4.70-6.10); WHITE BLOOD COUNT 7.2 K/UL (4.8-10.8)
[2019-03-11 05:56] LABS: ANION GAP 9 mmol/L (5-15); BLOOD UREA NITROGEN 41 mg/dL (7-18); CALCIUM 7.7 MG/DL (8.5-10.1); CARBON DIOXIDE 31 MMOL/L (21-32); CHLORIDE 101 MMOL/L (98-107); CREATININE 5.1 MG/DL (0.55-1.30); SODIUM 141 MMOL/L (136-145)
--- NOTE | 2019-03-11 07:10 | NUR ---
HAND-OFF: Report given to Eloise Solomon RN. Patient is awake in bed with no acute distress.
--- NOTE | 2019-03-11 07:11 | NUR ---
NURSE NOTES: Received patient in bed. On nasal cannula at 4LPM. Patient is verbal, confused, bed in lowest position, bed alarm on. Contact isolation observed. Will continue plan of care.
[2019-03-11 08:00] VITALS: BP 108/46
--- NOTE | 2019-03-11 08:56 | NUR ---
NURSE NOTES: Dr. Garíca at bedside. Informed MD that patient is congested and coughing with thin liquids. ST eval order obtained.
[2019-03-11] MEDS: Lisinopril 10mg tab ORAL SCH (09:36)
[2019-03-11] MEDS: Docusate 100mg cap ORAL SCH ×3 (09:37→18:00)
[2019-03-11] MEDS: Flonase Nasal Inhaler 16gm NASAL SCH (09:38)
[2019-03-11] MEDS: Aspirin Baby 81mg ORAL SCH (09:39)
[2019-03-11] MEDS: Eliquis 2.5mg tablet ORAL SCH (09:39)
[2019-03-11 10:06] LABS: ALANINE AMINOTRANSFERASE 42 U/L (12-78); ALBUMIN 2.7 G/DL (3.4-5.0); ALKALINE PHOSPHATASE 125 U/L (46-116); ASPARTATE AMINO TRANSFERASE 55 U/L (15-37); BILIRUBIN,DIRECT 0.1 MG/DL (0.0-0.3); BILIRUBIN,TOTAL 0.6 MG/DL (0.2-1.0)
--- NOTE | 2019-03-11 10:57 | Infectious Diseases Prog Note ---
Assessment/Plan Assessment/Plan IMPRESSION: 1. Leukocytosis, resolved 2. Lactic acidosis. 3.Doubt sepsis 4. Lxs-FQ-sosqqrfig [place]. 5. End-stage renal disease, on hemodialysis. 6. Diabetes mellitus, type 2. 7. Hypertension. 8. BPH. 9. Systolic CHF with ejection fraction of 40%. RECOMMENDATIONS: observe off antibiotic Subjective ROS Limited/Unobtainable: Yes Constitutional: Denies: fever Allergies: Coded Allergies: No Known Allergies (Unverified , 05/25/13) Objective Vital Signs Last 24 Hour Vital Signs Date Time Temp Pulse Resp B/P (MAP) Pulse Ox O2 Delivery O2 Flow Rate FiO2 03/11/19 09:36 108/46 03/11/19 09:36 83 108/46 03/11/19 08:00 98.6 83 21 108/46 (66) 96 03/11/19 07:44 67 03/11/19 04:00 97.2 78 18 115/45 (68) 96 03/11/19 04:00 69 03/11/19 00:00 97.6 65 19 103/39 (60) 95 03/10/19 23:30 72 03/10/19 21:00 Nasal Cannula 2.0 03/10/19 20:41 81 142/60 03/10/19 20:00 80 03/10/19 20:00 97.8 80 22 140/60 (86) 100 03/10/19 16:00 80 03/10/19 16:00 97.7 81 19 114/59 (77) 100 03/10/19 15:10 123/65 03/10/19 12:00 96.6 75 21 123/65 (84) 100 03/10/19 12:00 67 Height (Feet): 5 Height (Inches): 5.00 Weight (Pounds): 147 General Appearance: no acute distress HEENT: mucous membranes moist Respiratory/Chest: other - coarse sounds Cardiovascular: normal rate Abdomen: soft, non tender Extremities: no edema Neurologic/Psychiatric: responsive Microbiology Date/Time Source Procedure Growth Status 03/09/19 11:20 Blood Blood Culture - Preliminary NO GROWTH AFTER 24 HOURS Resulted 03/09/19 11:08 Blood Blood Culture - Preliminary NO GROWTH AFTER 24 HOURS Resulted 03/09/19 05:30 Rectum VRE Culture - Final Enterococcus Faecium - Vre Complete Laboratory Tests Test 03/11/19 04:40 White Blood Count 7.2 K/UL (4.8-10.8) Red Blood Count 2.52 M/UL (4.70-6.10) L Hemoglobin 8.3 G/DL (14.2-18.0) L Hematocrit 25.3 % (42.0-52.0) L Mean Corpuscular Volume 101 FL (80-99) H Mean Corpuscular Hemoglobin 32.9 PG (27.0-31.0) H Mean Corpuscular Hemoglobin Concent 32.7 G/DL (32.0-36.0) Red Cell Distribution Width 15.0 % (11.6-14.8) H Platelet Count 101 K/UL (150-450) L Mean Platelet Volume 8.4 FL (6.5-10.1) Neutrophils (%) (Auto) % (45.0-75.0) Lymphocytes (%) (Auto) % (20.0-45.0) Monocytes (%) (Auto) % (1.0-10.0) Eosinophils (%) (Auto) % (0.0-3.0) Basophils (%) (Auto) % (0.0-2.0) Differential Total Cells Counted 100 Neutrophils % (Manual) 86 % (45-75) H Lymphocytes % (Manual) 7 % (20-45) L Monocytes % (Manual) 7 % (1-10) Eosinophils % (Manual) 0 % (0-3) Basophils % (Manual) 0 % (0-2) Band Neutrophils 0 % (0-8) Nucleated Red Blood Cells 1 /100 WBC Platelet Estimate Decreased L Platelet Morphology Normal Hypochromasia 2+ Anisocytosis 1+ Macrocytosis 1+ Sodium Level 141 MMOL/L (136-145) Potassium Level 4.0 MMOL/L (3.5-5.1) Chloride Level 101 MMOL/L (98-107) Carbon Dioxide Level 31 MMOL/L (21-32) Anion Gap 9 mmol/L (5-15) Blood Urea Nitrogen 41 mg/dL (7-18) H Creatinine 5.1 MG/DL (0.55-1.30) H Estimat Glomerular Filtration Rate mL/min (>60) Glucose Level 125 MG/DL (74-106) H Lactic Acid Level 1.40 mmol/L (0.4-2.0) Calcium Level 7.7 MG/DL (8.5-10.1) L Phosphorus Level 6.0 MG/DL (2.5-4.9) H Magnesium Level 2.1 MG/DL (1.8-2.4) Total Bilirubin 0.6 MG/DL (0.2-1.0) Direct Bilirubin 0.1 MG/DL (0.0-0.3) Aspartate Amino Transf (AST/SGOT) 55 U/L (15-37) H Alanine Aminotransferase (ALT/SGPT) 42 U/L (12-78) Alkaline Phosphatase 125 U/L (46-116) H Troponin I 1.885 ng/mL (0.000-0.056) Total Protein 6.5 G/DL (6.4-8.2) Albumin 2.7 G/DL (3.4-5.0) L Current Medications Medications (Trade) Dose Ordered Sig/Stephany Route PRN Reason Start Time Stop Time Status Last Admin Dose Admin Acetaminophen (Tylenol) 650 mg Q6H PRN ORAL Mild Pain/Temp > 100.5 03/09/19 07:01 04/07/19 07:00 03/10/19 03:10 Apixaban (Eliquis) 2.5 mg BID ORAL 03/09/19 09:00 04/07/19 08:59 03/11/19 09:39 Aspirin (ASA) 81 mg DAILY ORAL 03/09/19 09:00 04/07/19 08:59 03/11/19 09:39 Atorvastatin Calcium (Lipitor) 20 mg BEDTIME ORAL 03/09/19 21:00 04/07/19 20:59 03/10/19 20:42 Carvedilol (Coreg) 3.125 mg EVERY 12 HOURS ORAL 03/10/19 21:00 04/09/19 20:59 03/11/19 09:36 Dextrose 1,000 ml @ 30 mls/hr Q24H IV 03/09/19 14:07 04/08/19 14:06 03/10/19 22:53 Dextrose (Dextrose 50%) 25 ml Q30M PRN IV Hypoglycemia 03/09/19 07:00 04/07/19 06:59 Dextrose (Dextrose 50%) 50 ml Q30M PRN IV Hypoglycemia 03/09/19 07:00 04/07/19 06:59 Docusate Sodium (Colace) 100 mg TID ORAL 03/09/19 09:00 04/07/19 08:59 03/11/19 09:37 Ergocalciferol (Drisdol) 50,000 intlu ONCE A WEEK ORAL 03/15/19 18:00 04/07/19 17:59 Finasteride (Proscar) 5 mg DAILY ORAL 03/09/19 09:00 04/07/19 08:59 03/11/19 09:39 Fluticasone Propionate (Flonase) 2 spray DAILY NASAL 03/09/19 09:00 04/07/19 08:59 03/11/19 09:38 Guaifenesin/ Codeine Phosphate (Robitussin with codeine) 5 ml Q4H PRN ORAL For Cough 03/09/19 07:00 04/07/19 06:59 03/10/19 03:09 Hydralazine HCl (Apresoline) 25 mg Q4H PRN ORAL bp over 160 syst 03/09/19 07:03 04/07/19 07:02 03/10/19 03:09 Lisinopril (ZestriL) 10 mg DAILY ORAL 03/11/19 09:00 04/10/19 08:59 03/11/19 09:36 Nitroglycerin (Ntg) 1 patch Q24H TDERMAL 03/09/19 14:30 04/08/19 14:29 03/10/19 15:10 Ondansetron HCl (Zofran) 4 mg Q4H PRN IVP Nausea & Vomiting 03/09/19 07:03 04/08/19 07:02 03/10/19 03:09 Pantoprazole (Protonix) 40 mg BID ORAL 03/09/19 09:00 04/07/19 06:59 03/11/19 09:36 Risperidone (RisperDAL) 1 mg BEDTIME ORAL 03/10/19 21:00 04/09/19 20:59 03/10/19 20:42 Sevelamer Carbonate (Renvela) 1,600 mg THREE TIMES A DAY ORAL 03/10/19 13:00 04/08/19 12:59 03/11/19 09:36 Tamsulosin HCl (Flomax) 0.4 mg BEDTIME ORAL 03/09/19 21:00 04/07/19 20:59 03/10/19 20:42 Boyd Tee MD Mar 11, 2019 10:57
--- NOTE | 2019-03-11 11:19 | Cardiac Electrophysiology PN ---
Assessment/Plan Assessment/Plan 1. Troponin elevation, could be due to renal failure. Troponin peak is however at 3.5 that is coming down to 1.88. No CP or SOB. EKG no acute changes. EF 40-45% On aspirin, Coreg 3.125 bid and Lipitor. Likely needs cardiac cath specially in view of EF 40% after sepsis is resolved and if he/family agrees 2. Cardiomyopathy with EF of 40%. BNP is more than 35,000. Echo on 02/02/2019 showed EF of 55% to 60%, however repeat echocardiogram showed EF 40%. On Coreg, Lisiniorpil 10 daily and HD 3. On Eliquis for CVA and PVD. No Fib or DVT or PE 4. End-stage renal disease, on hemodialysis. 5. Lactic acidosis. 6. Hyperlipidemia, on Lipitor. DW Dr. García Subjective Subjective Alert in NAD. No CP or SOB. Troponin levels coming down. Objective Last 24 Hour Vital Signs Date Time Temp Pulse Resp B/P (MAP) Pulse Ox O2 Delivery O2 Flow Rate FiO2 03/11/19 09:36 108/46 03/11/19 09:36 83 108/46 03/11/19 08:00 98.6 83 21 108/46 (66) 96 03/11/19 07:44 67 03/11/19 04:00 97.2 78 18 115/45 (68) 96 03/11/19 04:00 69 03/11/19 00:00 97.6 65 19 103/39 (60) 95 03/10/19 23:30 72 03/10/19 21:00 Nasal Cannula 2.0 03/10/19 20:41 81 142/60 03/10/19 20:00 80 03/10/19 20:00 97.8 80 22 140/60 (86) 100 03/10/19 16:00 80 03/10/19 16:00 97.7 81 19 114/59 (77) 100 03/10/19 15:10 123/65 03/10/19 12:00 96.6 75 21 123/65 (84) 100 03/10/19 12:00 67 Intake and Output 03/10/19 03/11/19 19:00 07:00 Intake Total 5080 ml 565.0 ml Balance 5080 ml 565.0 ml Intake Oral 720 ml 240 ml IV Total 360 ml 325.0 ml Hemodialysis 4000 ml Laboratory Tests Test 03/11/19 04:40 White Blood Count 7.2 K/UL (4.8-10.8) Red Blood Count 2.52 M/UL (4.70-6.10) L Hemoglobin 8.3 G/DL (14.2-18.0) L Hematocrit 25.3 % (42.0-52.0) L Mean Corpuscular Volume 101 FL (80-99) H Mean Corpuscular Hemoglobin 32.9 PG (27.0-31.0) H Mean Corpuscular Hemoglobin Concent 32.7 G/DL (32.0-36.0) Red Cell Distribution Width 15.0 % (11.6-14.8) H Platelet Count 101 K/UL (150-450) L Mean Platelet Volume 8.4 FL (6.5-10.1) Neutrophils (%) (Auto) % (45.0-75.0) Lymphocytes (%) (Auto) % (20.0-45.0) Monocytes (%) (Auto) % (1.0-10.0) Eosinophils (%) (Auto) % (0.0-3.0) Basophils (%) (Auto) % (0.0-2.0) Differential Total Cells Counted 100 Neutrophils % (Manual) 86 % (45-75) H Lymphocytes % (Manual) 7 % (20-45) L Monocytes % (Manual) 7 % (1-10) Eosinophils % (Manual) 0 % (0-3) Basophils % (Manual) 0 % (0-2) Band Neutrophils 0 % (0-8) Nucleated Red Blood Cells 1 /100 WBC Platelet Estimate Decreased L Platelet Morphology Normal Hypochromasia 2+ Anisocytosis 1+ Macrocytosis 1+ Sodium Level 141 MMOL/L (136-145) Potassium Level 4.0 MMOL/L (3.5-5.1) Chloride Level 101 MMOL/L (98-107) Carbon Dioxide Level 31 MMOL/L (21-32) Anion Gap 9 mmol/L (5-15) Blood Urea Nitrogen 41 mg/dL (7-18) H Creatinine 5.1 MG/DL (0.55-1.30) H Estimat Glomerular Filtration Rate mL/min (>60) Glucose Level 125 MG/DL (74-106) H Lactic Acid Level 1.40 mmol/L (0.4-2.0) Calcium Level 7.7 MG/DL (8.5-10.1) L Phosphorus Level 6.0 MG/DL (2.5-4.9) H Magnesium Level 2.1 MG/DL (1.8-2.4) Total Bilirubin 0.6 MG/DL (0.2-1.0) Direct Bilirubin 0.1 MG/DL (0.0-0.3) Aspartate Amino Transf (AST/SGOT) 55 U/L (15-37) H Alanine Aminotransferase (ALT/SGPT) 42 U/L (12-78) Alkaline Phosphatase 125 U/L (46-116) H Troponin I 1.885 ng/mL (0.000-0.056) Total Protein 6.5 G/DL (6.4-8.2) Albumin 2.7 G/DL (3.4-5.0) L Microbiology Date/Time Source Procedure Growth Status 03/09/19 11:20 Blood Blood Culture - Preliminary NO GROWTH AFTER 24 HOURS Resulted 03/09/19 11:08 Blood Blood Culture - Preliminary NO GROWTH AFTER 24 HOURS Resulted 03/09/19 05:30 Rectum VRE Culture - Final Enterococcus Faecium - Vre Complete Objective HEAD AND NECK: No JVD. LUNGS: Clear. CARDIOVASCULAR: Regular S1 and S2 with no gallop or murmur. ABDOMEN: Soft. EXTREMITIES: No pitting edema. Dialysis access in the left arm. Dariel Corcoran MD Mar 11, 2019 11:19
--- NOTE | 2019-03-11 11:42 | NUR ---
ST NOTES: REFERRED FOR SWALLOW EVAL BY DR LOVELACE, SEE FULL EVAL. DYSPHAGIA RISK FACTORS FOR THIS 83 Y.O. COMORAN-SPEAKING (YUCATAN) MALE: ACUTE NSTEMI AND POOR INTAKE (REFUSES) FTT, RECENT PNA LAST ADMIT 2 WEEKS AGO (SEE SWALLOW EVAL 02/27/19) AND NOW HAS RIGHT BASAL ATELECTASIS AND REQUIRED DEEP NASAL SUCTION AND SOUNDS CONGESTED, AND SOB. COMORDITIES: ORAL PREP (ORAL APRAXIA) AND OP DYSPHAGIA (MILD TO MODERATE) AND MILD ESOPHAGEAL (BACKFLOW THROUGH THE PES OPENING WITH LIQUID), ESRD WITH HD (MWF TO HAVE TOMORROW), CVA (H/O LEFT FRONTAL AND POSS RIGHT FRONTAL CALCIFICATION MENINGIOMA MILD BRAIN ATROPHY), FTT, DYSARTHRIA, GERD, NIDDM, ABDOMINAL SURGERY. ON BSE AT [facility] 02/27/2019: PRESENTED WITH MILD ORAL AND SUSPECTED PHARYNGEAL PHASE DYSPHAGIA WITH SENSORIMOTOR DEFICITS CONTRIBUTING TO DELAY IN INITIATION OF PHARYNGEAL PHASE OF SWALLOW. PATIENT COUGHED CONSISTENTLY POST P.O. TRIALS AND FAMILY AT BEDSIDE CONFIRMED THAT THIS IS THE PATIENTS BASELINE EATING PROFILE: EATING QUICKLY FOLLOWED BY COUGHING. HIS VOCAL QUALITY REMAINED CLEAR PRE AND POST SWALLOW. TO MAXIMIZE HIS SWALLOW SAFETY AND MINIMIZE RISK OF ASPIRATION THE FOLLOWING IS RECOMMENDED: RECOMMENDATIONS: 1. MODIFIED TEXTURE DIET (MECH SOFT/CHOPPED, THIN LIQUIDS, NO STRAWSW 2. PILLS TOLERATED 3. MEALTIME PROTOCOL 4. VIDEO WHILE IP OR OP ON MBSS AT [facility] 2016: (3.5 YEARS AGO) PT PRESENTS WITH MODERATE OROPHARYNGEAL DYSPHAGIA CHARACTERIZED BY SENSORIMOTOR DEFICITS AND PROBABLE ORAL APRAXIA. FLASH TRACE LARYNGEAL PENETRATION WITH THIN(STRAW) AND NECTAR THICK(STRAW-2ND SWALLOW) AND HONEY THICK(2ND SWALLOW) DUE TO DELAYED SWALLOW, DECREASED HYO-LARYNGEAL ELEVATION/EXCURSION, AND LATE CLOSURE OF LARYNGEAL VESTIBULE. MILD TO MODERATE TONGUE BASE AND VALLECULAR RESIDUE WAS NOTED DUE TO DECREASED TONGUE BASE RETRACTION. MILD TO MODERATE PHARYNGEAL RESIDUE IN PYRIFORM SINUSES DUE TO DECREASED LARYNGEAL ELEVATION AND ESOPHAGEAL RETENTION WITH RETROGRADE FLOW THROUGH PHARYNGO-ESOPHAGEAL SEGMENT. MILD TO MODERATE ESOPHAGEAL DYSPHAGIA(LATERAL VIEW) CHARACTERIZED BY ESOPHAGEAL RETENTION WITH RETROGRADE FLOW THROUGH PHARYNGOESOPHAGEAL SEGMENT. NO ASPIRATION WAS NOTED BUT HAS HIGH RISK IF ASPIRATION/REFLUX PRECAUTIONS ARE NOT STRICTLY APPLIED. PT BENEFITS FROM EFFORTFUL SWALLOW, SWALLOW X 2 TO 3 TIMES AND LIQUID WASH STRATEGIES. TRIAL CHIN DOWN/TUCK TECHNIQUE. RECOMMENDATIONS: 1. FOR QUALITY OF LIFE, CONTINUE ORAL DIET. CHANGE DIET TO RENAL MECH SOFT(FINELY CHOPPED) WITH THIN LIQUIDS. 2. STRICT ASPIRATION PRECAUTIONS WITH 1TO 1 SUPERVISION. NO POLST/AD REGARDING TF IN CHART. FAMILY HAS WANTED THE PATIENT TO HAVE PO IN PAST FOR QUALITY OF LIFE. NOW ON A LOW NA RENAL MECH SOFT CHOPPED DIET AND THIN LIQUIDS WITH POOR INTAKE (REFUSES MOSTLY OR TAKES SOME PO). PER RN, RHONDA, COUGHS WITH THIN LIQUIDS AND SOUNDS CONGESTED, NEEDED DEEP NASAL SUCTION. PER INTERIOR DESIGNER, RAE, AND RN, APPEARS TO TOLERATE SOME PUREED AND CURRENT DIET BUT TALKS WITH FOOD IN HIS MOUTH. PER RD ON 02/28/19 DIET TYPE CCHO-MED AND RENAL AND SEND NEPRO 1 TETRA PACKET DAILY. ALERT BUT CONFUSED AND DYSARTHRIC/DYSPHONIC. DIFFICULT TO UNDERSTAND EVEN IN COMORAN WITH SPAN-SPEAKING EDUCATIONAL PSYCHOLOGIST. RAPID RATE, REDUCED VOICE LOUDNESS, HOARSE QUALITY, AND REDUCED ARTICULATORY PRECISION. DOES NOT FOLLOW COMMANDS WELL AND NEEDS REPETITION TO COMPREHEND WITH SIMPLE SENTENCES (DUE TO ATTENTION AND MOTOR REGULATION - IMPULSIVE RESPONSES). ON 4 LITERS NC WITH RESP RATE AT 18-22 BUT GOOD 02 SATS ON 2 LITERS NC. INITIAL IMPRESSIONS: S/S OF A PERSISTENT ? WORSENED ORAL PREP AND OROPHARYNGEAL DYSPHAGIA WITH OVERALL INCREASED TRANSIT TIMES DUE TO SENSORIMOTOR DEFICITS MILD ORAL SPILLAGE OF SALIVA ON THE THE RIGHT CUED TO SWALLOW DUE TO REDUCED L LABIAL STRENGTH AND ROM. TONGUE MOVEMENT SLOW AND DIFFICULT TO TEST STRENGTH WEAK VOICE (HOARSE) AND COUGH (NEEDED SUCTION FOR SALIVA/SECRETIONS PER RN). GIVEN NECTAR THICK LIQUIDS VIA TSP AND CUP SWALLOWED IN 2-4 SECONDS WITH FAIR HYOLARYNGEAL EXCURSION, AND SWALLOWED AGAIN FOR MILD ORAL (ANTERIOR) RESIDUE. GIVEN PUREED TSP, CHEWED BOLUS AND SWALLOWED IN 8 SECONDS, NO ORAL RESIDUE, NO OVERT ASPIRATION GIVEN MASTICATED SOLID (HAS MOST TEETH) 1/2 CRACKER, TALKED WITH FOOD IN MOUTH AND CHEWED FOR 10 SEC AND BOLOUS REMOVED WHOLE. HAS SILENT ASPIRATION RISK RECOMMENDATIONS: COMPLETE MOD BARIUM SWALLOW STUDY MBSS TO FURTHER ASSESS SWALLOW, DETERMINE SILENT ASP RISK/ETIOLOGY, AND ATTEMPT TRIAL TX TECHNIQUES. IF PO GIVEN FOR QUALITY OF LIFE, CONSIDER DOWNGRADING TO MOIST PUREED AND NECTAR THICK LIQUIDS WITH POSTED ASP/REFLUX PREC AND 1 TO [address] CCHO-MED AND RENAL DIET TYPE AND ADD NEPRO 1 TETRAK PKT LAST ADMIT (NO REPORT THIS ADMIT) SKILLED DYSPHAGIA MANAGEMENT AND TX AND COG-COM EVAL/TX WOULD BENEFIT FROM ENT CONSULT TO ASSESS VOCAL FOLDS VOICE IS HOARSE (NO H/O TOBACCO PER MED RECORD). D/W MARIELA ELLIS Addendum: 03/11/19 at 1154 by VAZQUEZ ROLON D/W DR LOVELACE WHO AGREED WITH MBSS Addendum: 03/11/19 at 1157 by VAZQUEZ ROLON CRUSH MEDS AND MAKE NECTAR THICK CONSISTENCY.
[2019-03-11 12:00] VITALS: BP 96/71
[2019-03-11] MEDS ORDERED: Varibar Honey 250ml MC PRN (12:00)
[2019-03-11] MEDS ORDERED: Varibar Pudding 230ml MC PRN (12:00)
[2019-03-11] MEDS ORDERED: Varibar Nectar 240ml MC PRN (12:00)
--- NOTE | 2019-03-11 12:40 | Pulmonology Progress Note ---
Assessment/Plan Problems: (1) NSTEMI (non-ST elevated myocardial infarction) (2) ESRD (end stage renal disease) on dialysis (3) Cardiomyopathy (4) HTN (hypertension) (5) HLD (hyperlipidemia) (6) CVA (cerebral vascular accident) Assessment/Plan ASSESSMENT: The patient is an 83-year-old male with a history of prior CVA, end -stage renal disease, on dialysis, hypertension, hyperlipidemia, CAD, CVA, and BPH presenting with dizziness and [id number]-ukyfbojyi TN. He is fairly stable from a respiratory standpoint. PROBLEM LIST: 1. Non ST-elevation myocardial infarction. 2. Recent pneumonia. 3. Dizziness. 4. End-stage renal disease, on dialysis. 5. CAD. 6. Hypertension. 7. Hyperlipidemia. 8. Anemia. 9. Diabetes. TREATMENT PLAN: 1. Optimize pulmonary hygiene/mobilize as tolerated. 2. Titrate O2 3. P.r.n. bronchodilators. 4. Observe off antibiotics per ID 5. Follow up Cardiology recommendations, medical management of non-STEMI. 6. Continue Eliquis 7. Monitor volumes and renal function, dialysis per Renal. 8. FC, continue to discuss GOC Subjective Allergies: Coded Allergies: No Known Allergies (Unverified , 05/25/13) Subjective NAEO AFVSS O2 needs stable @ 2L + SOB no cough no CP no FC PUMP SERVICER HELPER eval noted Objective Last 24 Hour Vital Signs Date Time Temp Pulse Resp B/P (MAP) Pulse Ox O2 Delivery O2 Flow Rate FiO2 03/11/19 09:36 108/46 03/11/19 09:36 83 108/46 03/11/19 09:00 Nasal Cannula 2.0 03/11/19 08:00 98.6 83 21 108/46 (66) 96 03/11/19 07:44 67 03/11/19 04:00 97.2 78 18 115/45 (68) 96 03/11/19 04:00 69 03/11/19 00:00 97.6 65 19 103/39 (60) 95 03/10/19 23:30 72 03/10/19 21:00 Nasal Cannula 2.0 03/10/19 20:41 81 142/60 03/10/19 20:00 80 03/10/19 20:00 97.8 80 22 140/60 (86) 100 03/10/19 16:00 80 03/10/19 16:00 97.7 81 19 114/59 (77) 100 03/10/19 15:10 123/65 Intake and Output 03/10/19 03/11/19 19:00 07:00 Intake Total 5080 ml 565.0 ml Balance 5080 ml 565.0 ml Intake Oral 720 ml 240 ml IV Total 360 ml 325.0 ml Hemodialysis 4000 ml General Appearance: no acute distress, cachetic HEENT: normocephalic, atraumatic, anicteric, mucous membranes moist Respiratory/Chest: rhonchi - few scattered Cardiovascular: normal peripheral pulses, normal rate, regular rhythm Abdomen: normal bowel sounds, soft, non tender, no organomegaly, non distended , no mass Extremities: no cyanosis, no clubbing, no edema Microbiology Date/Time Source Procedure Growth Status 03/09/19 11:20 Blood Blood Culture - Preliminary NO GROWTH AFTER 24 HOURS Resulted 03/09/19 11:08 Blood Blood Culture - Preliminary NO GROWTH AFTER 24 HOURS Resulted 03/09/19 05:30 Rectum VRE Culture - Final Enterococcus Faecium - Vre Complete Laboratory Tests 03/11/19 04:40: White Blood Count 7.2, Red Blood Count 2.52L, Hemoglobin 8.3L, Hematocrit 25.3L , Mean Corpuscular Volume 101H, Mean Corpuscular Hemoglobin 32.9H, Mean Corpuscular Hemoglobin Concent 32.7, Red Cell Distribution Width 15.0H, Platelet Count 101L, Mean Platelet Volume 8.4, Neutrophils (%) (Auto) , Lymphocytes (%) (Auto) , Monocytes (%) (Auto) , Eosinophils (%) (Auto) , Basophils (%) (Auto) , Differential Total Cells Counted 100, Neutrophils % ( Manual) 86H, Lymphocytes % (Manual) 7L, Monocytes % (Manual) 7, Eosinophils % ( Manual) 0, Basophils % (Manual) 0, Band Neutrophils 0, Nucleated Red Blood Cells 1, Platelet Estimate DecreasedL, Platelet Morphology Normal, Hypochromasia 2+, Anisocytosis 1+, Macrocytosis 1+, Sodium Level 141, Potassium Level 4.0, Chloride Level 101, Carbon Dioxide Level 31, Anion Gap 9, Blood Urea Nitrogen 41H, Creatinine 5.1H, Estimat Glomerular Filtration Rate , Glucose Level 125H, Lactic Acid Level 1.40, Calcium Level 7.7L, Phosphorus Level 6.0H, Magnesium Level 2.1, Total Bilirubin 0.6, Direct Bilirubin 0.1, Aspartate Amino Transf (AST/SGOT) 55H, Alanine Aminotransferase (ALT/SGPT) 42, Alkaline Phosphatase 125H, Troponin I 1.885H, Total Protein 6.5, Albumin 2.7L Current Medications Medications (Trade) Dose Ordered Sig/Stephany Route PRN Reason Start Time Stop Time Status Last Admin Dose Admin Acetaminophen (Tylenol) 650 mg Q6H PRN ORAL Mild Pain/Temp > 100.5 03/09/19 07:01 04/07/19 07:00 03/10/19 03:10 Apixaban (Eliquis) 2.5 mg BID ORAL 03/09/19 09:00 04/07/19 08:59 03/11/19 09:39 Aspirin (ASA) 81 mg DAILY ORAL 03/09/19 09:00 04/07/19 08:59 03/11/19 09:39 Atorvastatin Calcium (Lipitor) 20 mg BEDTIME ORAL 03/09/19 21:00 04/07/19 20:59 03/10/19 20:42 Barium Sulfate (Varibar Honey) 250 ml NOW PRN MC RAD 03/11/19 12:00 03/14/19 11:58 Barium Sulfate (Varibar Pronghorn) 240 ml NOW PRN MC RAD 03/11/19 12:00 03/14/19 11:58 Barium Sulfate (Varibar Pudding) 230 ml NOW PRN MC RAD 03/11/19 12:00 03/14/19 11:58 Carvedilol (Coreg) 3.125 mg EVERY 12 HOURS ORAL 03/10/19 21:00 04/09/19 20:59 03/11/19 09:36 Dextrose 1,000 ml @ 30 mls/hr Q24H IV 03/09/19 14:07 04/08/19 14:06 03/10/19 22:53 Dextrose (Dextrose 50%) 25 ml Q30M PRN IV Hypoglycemia 03/09/19 07:00 04/07/19 06:59 Dextrose (Dextrose 50%) 50 ml Q30M PRN IV Hypoglycemia 03/09/19 07:00 04/07/19 06:59 Docusate Sodium (Colace) 100 mg TID ORAL 03/09/19 09:00 04/07/19 08:59 03/11/19 09:37 Ergocalciferol (Drisdol) 50,000 intlu ONCE A WEEK ORAL 03/15/19 18:00 04/07/19 17:59 Finasteride (Proscar) 5 mg DAILY ORAL 03/09/19 09:00 04/07/19 08:59 03/11/19 09:39 Fluticasone Propionate (Flonase) 2 spray DAILY NASAL 03/09/19 09:00 04/07/19 08:59 03/11/19 09:38 Guaifenesin/ Codeine Phosphate (Robitussin with codeine) 5 ml Q4H PRN ORAL For Cough 03/09/19 07:00 04/07/19 06:59 03/10/19 03:09 Hydralazine HCl (Apresoline) 25 mg Q4H PRN ORAL bp over 160 syst 03/09/19 07:03 04/07/19 07:02 03/10/19 03:09 Lisinopril (ZestriL) 10 mg DAILY ORAL 03/11/19 09:00 04/10/19 08:59 03/11/19 09:36 Nitroglycerin (Ntg) 1 patch Q24H TDERMAL 03/09/19 14:30 04/08/19 14:29 03/10/19 15:10 Ondansetron HCl (Zofran) 4 mg Q4H PRN IVP Nausea & Vomiting 03/09/19 07:03 04/08/19 07:02 03/10/19 03:09 Pantoprazole (Protonix) 40 mg BID ORAL 03/09/19 09:00 04/07/19 06:59 03/11/19 09:36 Risperidone (RisperDAL) 1 mg BEDTIME ORAL 03/10/19 21:00 04/09/19 20:59 03/10/19 20:42 Sevelamer Carbonate (Renvela) 1,600 mg THREE TIMES A DAY ORAL 03/10/19 13:00 04/08/19 12:59 03/11/19 09:36 Tamsulosin HCl (Flomax) 0.4 mg BEDTIME ORAL 03/09/19 21:00 04/07/19 20:59 03/10/19 20:42 Thaddeus Cornelius MD Mar 11, 2019 12:40
--- NOTE | 2019-03-11 12:41 | Nephrology Progress Note ---
Assessment/Plan Problem List: (1) ESRD (end stage renal disease) on dialysis (2) Cardiomyopathy (3) NSTEMI (non-ST elevated myocardial infarction) Assessment: Troponin lowering Assessment ESRD- HTN Anemia DM CAD- Cardiomyopathy s/p SEPSIS OR Plan recent 2D echo 40% EjFx Pulm Toilet HD 03/10/2019 next 03/12 Keep BP in check - Hold bp meds for now due to low BP Albumin bolus ASA Nitrate per consultants per orders Subjective ROS Limited/Unobtainable: No Constitutional: Reports: malaise Objective Objective Last 24 Hour Vital Signs Date Time Temp Pulse Resp B/P (MAP) Pulse Ox O2 Delivery O2 Flow Rate FiO2 03/11/19 09:36 108/46 03/11/19 09:36 83 108/46 03/11/19 09:00 Nasal Cannula 2.0 03/11/19 08:00 98.6 83 21 108/46 (66) 96 03/11/19 07:44 67 03/11/19 04:00 97.2 78 18 115/45 (68) 96 03/11/19 04:00 69 03/11/19 00:00 97.6 65 19 103/39 (60) 95 03/10/19 23:30 72 03/10/19 21:00 Nasal Cannula 2.0 03/10/19 20:41 81 142/60 03/10/19 20:00 80 03/10/19 20:00 97.8 80 22 140/60 (86) 100 03/10/19 16:00 80 03/10/19 16:00 97.7 81 19 114/59 (77) 100 03/10/19 15:10 123/65 Intake and Output 03/10/19 03/11/19 19:00 07:00 Intake Total 5080 ml 565.0 ml Balance 5080 ml 565.0 ml Intake Oral 720 ml 240 ml IV Total 360 ml 325.0 ml Hemodialysis 4000 ml Laboratory Tests 03/11/19 04:40: White Blood Count 7.2, Red Blood Count 2.52L, Hemoglobin 8.3L, Hematocrit 25.3L , Mean Corpuscular Volume 101H, Mean Corpuscular Hemoglobin 32.9H, Mean Corpuscular Hemoglobin Concent 32.7, Red Cell Distribution Width 15.0H, Platelet Count 101L, Mean Platelet Volume 8.4, Neutrophils (%) (Auto) , Lymphocytes (%) (Auto) , Monocytes (%) (Auto) , Eosinophils (%) (Auto) , Basophils (%) (Auto) , Differential Total Cells Counted 100, Neutrophils % ( Manual) 86H, Lymphocytes % (Manual) 7L, Monocytes % (Manual) 7, Eosinophils % ( Manual) 0, Basophils % (Manual) 0, Band Neutrophils 0, Nucleated Red Blood Cells 1, Platelet Estimate DecreasedL, Platelet Morphology Normal, Hypochromasia 2+, Anisocytosis 1+, Macrocytosis 1+, Sodium Level 141, Potassium Level 4.0, Chloride Level 101, Carbon Dioxide Level 31, Anion Gap 9, Blood Urea Nitrogen 41H, Creatinine 5.1H, Estimat Glomerular Filtration Rate , Glucose Level 125H, Lactic Acid Level 1.40, Calcium Level 7.7L, Phosphorus Level 6.0H, Magnesium Level 2.1, Total Bilirubin 0.6, Direct Bilirubin 0.1, Aspartate Amino Transf (AST/SGOT) 55H, Alanine Aminotransferase (ALT/SGPT) 42, Alkaline Phosphatase 125H, Troponin I 1.885H, Total Protein 6.5, Albumin 2.7L Height (Feet): 5 Height (Inches): 5.00 Weight (Pounds): 147 General Appearance: no apparent distress, lethargic Cardiovascular: normal rate, tachycardia Respiratory/Chest: decreased breath sounds Abdomen: soft Mikey Brandt MD Mar 11, 2019 12:41
--- NOTE | 2019-03-11 12:48 | NUR ---
NURSE NOTES: Spoke with Dr. García via telephone, Informed MD that patient is going for video swallow test in radiology department, patient will be off the unit. And OFF tele order obtained, charge nurse made aware.
--- NOTE | 2019-03-11 13:24 | NUR ---
NURSE NOTES: Patient is off the unit. Patient went to radiology department for video swallow test with
--- NOTE | 2019-03-11 13:53 | CDS Physician Query ---
Clarification is required for compliance, coding accuracy, and to reflect severity of illness for this patient Dear Boyd Mcwilliams MD Date: 03/11/2019 CDS: Michoacano Sanchez According to the clinical indications above, please indicate below the condition The patient is an 83-year-old gentleman with history of hypertension, end-stage renal disease on dialysis, history of previous CVA, history of BPH, hyperlipidemia, hypertension as well as diabetes and history of recent pneumonia, who was recently discharged after being treated for pneumonia and some alteration in mental status, which had resolved. The patient was apparently in dialysis where he started feeling lightheaded after dialysis. WBC: 12.3 Tx: IV Piperacillin/Tazobactam Assessment/Plan Assessment/Plan IMPRESSION: 1. Leukocytosis, resolved 2. Lactic acidosis. 3. Doubt sepsis PHYSICIAN RESPONSE: Sepsis SIRS SIRS with organ dysfunction Septic Shock Not applicable Other: Present on Admission: Yes No Clinically Undetermined Physician signature Date Please also document in your Progress Notes and/or Discharge Summary and indicate if the condition was present on admission. [facility]
--- NOTE | 2019-03-11 14:20 | NUR ---
NURSE NOTES: Patient is back from radiology department.
[2019-03-11] MEDS: Nitroglycerin Patch 0.4mg TDERMAL SCH (15:07)
--- NOTE | 2019-03-11 15:25 | NUR ---
RD ASSESSMENT & RECOMMENDATIONS SEE CARE ACTIVITY FOR COMPLETE ASSESSMENT DAILY ESTIMATED NEEDS: Needs based on ESRD w/ HD, 66.8kg 25-30 kcals/kg [id number] total kcals 1.2-1.8 g protein/kg 84-120 g total protein Fluid per MD, on HD mL/kg . total fluid mLs NUTRITION DIAGNOSIS: * Increased kcal and protein needs r/t renal dysfunction as evidenced by pt w/ ESRD on HD * Swallowing difficulty R/T dysphagia as evidenced by s/p MBSS w/ rec for pureed moist, NTL. CURRENT DIET:Renal, CCHO MED/ pureed moist NTL PO DIET RECOMMENDATIONS: CCHO MED + RENAL/ texture per DAIRY NUTRITION SPECIALIST ADDITIONAL RECOMMENDATIONS: * Calibrated bedscale wt * Nephrovite x 1 * Nepro TID w/ meals while appetite variable / poor * Monitor PO acceptance -> monitor % intake for each meal
--- NOTE | 2019-03-11 15:36 | NUR ---
COMPLETED MOD BARIUM SWALLOW STUDY, SEE FULL REPORT. INITIAL IMPRESSIONS: SEVERE PHARYNGEAL GREATER THAN ORAL DYSPHAGIA WITH SIGNIFICANT INCREASE IN ORAL PREP AND OROPHARYNGEAL TRANSIT TIMES DUE TO SENSORIMOTOR DEFICITS AND COMPOUNDED BY COGNITIVE-BEHAVIORAL AND RESPIRATORY PROBLEMS. LEVEL 1 ON THE DYSPHAGIA OUTCOME SEVERITY SCALE NPO: UNABLE TO SAFELY MOST PO SAFELY. THIN LIQUIDS: TRACE AND SILENT ASPIRATION WITH CUP DUE TO DELAYED SWALLOW, LATE/INCOMPLETE LARYNGEAL VESTIBULE CLOSURE, REDUCED TONGUE BASE RETRACTION, AND HYOLARYNGEAL EXCURSION ALSO HAD TRACE AND DEEP LARYNGEAL PENETRATION WITH BOTH TSP WITH COUGH DUE TO INCOMPLETE AND LATE LARYNGEAL VESTIBULE CLOSURE (LVC), AND MOSTLY REDUCED TONGUE BASE RETRACTION. ADDITIONAL RISK FOR ASP AND LP AFTER THE SWALLOW MOSTLY DUE TO BACKFLOW THROUGH THE PHARYNGOESOPHAGEAL SEGMENT OPENING (BACKFLOW) AND OVERALL REDUCED PHARYNGEAL STRENGTH. REQUIRED SUCTION AFTER TSP AND CUP OF THIN LIQUIDS. NECTAR THICK LIQUIDS DEEP SILENT LP WITH TSP AND CUP CONTACTS VOCAL FOLDS W/O EJECTION DUE TO LATE/INC LVC, REDUCED TONGUE BASE RETRACTION, HYOLARYNGEAL EXCURSION, REDUCED PHARYNGEAL SEGMENT OPENING, AND ESOPHAGEAL DYSMOTILITY RESULTING IN BACKFLOW THROUGH THE PHARYNGOESOPHAGEAL SEGMENT OPENING. CUP WASH (AFTER PUDDING) HAD DEEP LP TO LEVEL OF VOCAL FOLDS BUT EJECTED DUE TO SAME PROBLEMS NOTED ABOVE. HONEY THICK LIQUIDS TSP TRACE AND DEEP LP W/O EJECTION DUE TO ESOPHAGEAL DYSMOTILITY AND BACKFLOW THROUGH THE PES OPENING AND PHARYNGEAL WEAKNESS/DYSMOTILITY NOTED ABOVE (POOR TONGUE BASE RETRACTION AND HYOLARYNGEAL EXCURSION) PUDDING TSP HE HAD SIGNIFICANT BACKFLOW AND REDUCED PHARYNGEAL/ MOTILITY NOTED ABOVE WITH ALL CONSISTENCIES. TRACE AND DEEP LP TO LEVEL OF VOCAL FOLDS NOT EJECTED. AFTER STUDY GIVEN 1/2 TSP WATER X3 SINCE HE WAS REFUSING SUCTION. TRIAL TX LIMITED DUE TO POOR ABILITY TO FOLLOW COMMANDS EVEN IN [place] AND WITH TACTILE AND VERBAL CUES. EXTRA HARD SWALLOWS AND LIQUID WASH SOMETIMES HELPED TO CLEAR SOME OF THE RESIDUE. NEEDED TO REST HE WOULD GET SOB AND RESP RATE WOULD GO ABOVE 25 (HIGHER ASP RISK) RECOMMENDATIONS: CONSIDER KEEPING PT NPO AND INITIATING NONORAL FEEDINGS FOR NOW. CONSIDER LONGER TERM TF (PEG) DISCUSSED WITH DR LOVELACE AND PATIENT'S SISTER. GIVEN THAT PATIENT IS REFUSING PO INTAKE AND HE HAS A HIGH RISK OF CHRONIC ASPIRATION WITH ALL CONSISTENCIES,THE PATIENT'S SISTER, ESTER, AGREED TO A NGT NOW AND A FUTURE PEG (DR LOVELACE TO CALL DR BERNSTEIN). ORAL GRATIFICATION SHOULD BE CONSIDERED WHEN THE PATIENT IS LESS SOB AND STRONGER AND AFTER A REPEAT MOD BARIUM SWALLOW STUDY IS COMPLETED AN OUTPT (POST DYSPHAGIA TRIAL TX AND MORE TIME). D/W RN RHONDA LOVELACE AGREED WITH
[2019-03-11 16:00] VITALS: BP 94/32
--- NOTE | 2019-03-11 16:30 | NUR ---
NURSE NOTES: Dr. Aguilar at bedside. Discussing plan of care with patient's family. Dr. Aguilar said not to insert NGT right now. Keep patient NPO.
--- NOTE | 2019-03-11 19:25 | NUR ---
HAND-OFF: Report given to Charmaine Andersen RN. Patient is not cooperating with care. Trying to get out of bed.
--- NOTE | 2019-03-11 19:26 | NUR ---
NURSE NOTES: received pt from Eloise SIERRA., pt is resting on the bed, AOx2 and confused andorran speaker. pt is on NC 4L at this moment and O2sat is at 98%. Right wrist 22G intact, patent, and clean. and left upper shunt for HD bruit and trill noted. no SOB noted. bed at the lowest position, alarmed, and locked. call light within reach. will continue to monitor pt with plan of care.
[2019-03-11 20:00] VITALS: BP 124/80
[2019-03-11] MEDS ORDERED: LORazepam Inj 2mg/ml 1ml IV PRN (20:00)
[2019-03-11] MEDS: Atorvastatin 20mg tab ORAL SCH (21:00)
[2019-03-11] MEDS: Tamsulosin 0.4mg cap ORAL SCH (21:00)
--- NOTE | 2019-03-11 21:44 | General Progress Note ---
Assessment/Plan Assessment/Plan: Assessment - Failed swallow, aspiration risk - NSTEMI - PNA - CAD - ESRD, HD - OBS Recommendations - NPO x meds - d/c Eliquis x 3-4 days - EGD / PEG Sunday am, if OK with consultants - Hold off on NGT placement Subjective Allergies: Coded Allergies: No Known Allergies (Unverified , 05/25/13) Objective Last 24 Hour Vital Signs Date Time Temp Pulse Resp B/P (MAP) Pulse Ox O2 Delivery O2 Flow Rate FiO2 03/11/19 21:00 62 124/80 03/11/19 16:00 96.3 62 23 94/32 (52) 96 03/11/19 16:00 Nasal Cannula 2.0 03/11/19 15:52 62 03/11/19 15:07 96/71 03/11/19 12:00 96.3 68 23 96/71 (79) 97 03/11/19 12:00 Nasal Cannula 2.0 03/11/19 11:34 65 03/11/19 09:36 108/46 03/11/19 09:36 83 108/46 03/11/19 08:00 Nasal Cannula 2.0 03/11/19 08:00 98.6 83 21 108/46 (66) 96 03/11/19 07:44 67 03/11/19 04:00 97.2 78 18 115/45 (68) 96 03/11/19 04:00 69 03/11/19 00:00 97.6 65 19 103/39 (60) 95 03/10/19 23:30 72 Intake and Output 03/10/19 03/11/19 19:00 07:00 Intake Total 5080 ml 595.0 ml Balance 5080 ml 595.0 ml Intake Oral 720 ml 240 ml IV Total 360 ml 355.0 ml Hemodialysis 4000 ml Laboratory Tests 03/11/19 04:40: White Blood Count 7.2, Red Blood Count 2.52L, Hemoglobin 8.3L, Hematocrit 25.3L , Mean Corpuscular Volume 101H, Mean Corpuscular Hemoglobin 32.9H, Mean Corpuscular Hemoglobin Concent 32.7, Red Cell Distribution Width 15.0H, Platelet Count 101L, Mean Platelet Volume 8.4, Neutrophils (%) (Auto) , Lymphocytes (%) (Auto) , Monocytes (%) (Auto) , Eosinophils (%) (Auto) , Basophils (%) (Auto) , Differential Total Cells Counted 100, Neutrophils % ( Manual) 86H, Lymphocytes % (Manual) 7L, Monocytes % (Manual) 7, Eosinophils % ( Manual) 0, Basophils % (Manual) 0, Band Neutrophils 0, Nucleated Red Blood Cells 1, Platelet Estimate DecreasedL, Platelet Morphology Normal, Hypochromasia 2+, Anisocytosis 1+, Macrocytosis 1+, Sodium Level 141, Potassium Level 4.0, Chloride Level 101, Carbon Dioxide Level 31, Anion Gap 9, Blood Urea Nitrogen 41H, Creatinine 5.1H, Estimat Glomerular Filtration Rate , Glucose Level 125H, Lactic Acid Level 1.40, Calcium Level 7.7L, Phosphorus Level 6.0H, Magnesium Level 2.1, Total Bilirubin 0.6, Direct Bilirubin 0.1, Aspartate Amino Transf (AST/SGOT) 55H, Alanine Aminotransferase (ALT/SGPT) 42, Alkaline Phosphatase 125H, Troponin I 1.885H, Total Protein 6.5, Albumin 2.7L Height (Feet): 5 Height (Inches): 5.00 Weight (Pounds): 147 Mann Aguilar MD Mar 11, 2019 21:44
--- NOTE | 2019-03-11 22:08 | General Progress Note ---
Assessment/Plan Assessment/Plan: aspiration risk NSTEMI renal failure diabeters persistent hypoglycemia ho pneumonia ho elevated lactic acid htn hld VSS eval noted , pos aspirate keep NPO will need PEG notified Dr Webber echo noted, decreaed EF cards fup dw Dr Corcoran considering cath when off abx endo eval appreciated all diabetic meds held dialysis dependint check cultures empiric abx lactic acid higher today will repeat dw Dr Burk, on eliquis due to previous stroke paf dvt and ulcer prophylaxis Subjective Allergies: Coded Allergies: No Known Allergies (Unverified , 05/25/13) Subjective more comfortable no chest paincoughin with fluids, Objective Last 24 Hour Vital Signs Date Time Temp Pulse Resp B/P (MAP) Pulse Ox O2 Delivery O2 Flow Rate FiO2 03/11/19 21:00 62 124/80 03/11/19 16:00 96.3 62 23 94/32 (52) 96 03/11/19 16:00 Nasal Cannula 2.0 03/11/19 15:52 62 03/11/19 15:07 96/71 03/11/19 12:00 96.3 68 23 96/71 (79) 97 03/11/19 12:00 Nasal Cannula 2.0 03/11/19 11:34 65 03/11/19 09:36 108/46 03/11/19 09:36 83 108/46 03/11/19 08:00 Nasal Cannula 2.0 03/11/19 08:00 98.6 83 21 108/46 (66) 96 03/11/19 07:44 67 03/11/19 04:00 97.2 78 18 115/45 (68) 96 03/11/19 04:00 69 03/11/19 00:00 97.6 65 19 103/39 (60) 95 03/10/19 23:30 72 Intake and Output 03/10/19 03/11/19 19:00 07:00 Intake Total 5080 ml 595.0 ml Balance 5080 ml 595.0 ml Intake Oral 720 ml 240 ml IV Total 360 ml 355.0 ml Hemodialysis 4000 ml Laboratory Tests 03/11/19 04:40: White Blood Count 7.2, Red Blood Count 2.52L, Hemoglobin 8.3L, Hematocrit 25.3L , Mean Corpuscular Volume 101H, Mean Corpuscular Hemoglobin 32.9H, Mean Corpuscular Hemoglobin Concent 32.7, Red Cell Distribution Width 15.0H, Platelet Count 101L, Mean Platelet Volume 8.4, Neutrophils (%) (Auto) , Lymphocytes (%) (Auto) , Monocytes (%) (Auto) , Eosinophils (%) (Auto) , Basophils (%) (Auto) , Differential Total Cells Counted 100, Neutrophils % ( Manual) 86H, Lymphocytes % (Manual) 7L, Monocytes % (Manual) 7, Eosinophils % ( Manual) 0, Basophils % (Manual) 0, Band Neutrophils 0, Nucleated Red Blood Cells 1, Platelet Estimate DecreasedL, Platelet Morphology Normal, Hypochromasia 2+, Anisocytosis 1+, Macrocytosis 1+, Sodium Level 141, Potassium Level 4.0, Chloride Level 101, Carbon Dioxide Level 31, Anion Gap 9, Blood Urea Nitrogen 41H, Creatinine 5.1H, Estimat Glomerular Filtration Rate , Glucose Level 125H, Lactic Acid Level 1.40, Calcium Level 7.7L, Phosphorus Level 6.0H, Magnesium Level 2.1, Total Bilirubin 0.6, Direct Bilirubin 0.1, Aspartate Amino Transf (AST/SGOT) 55H, Alanine Aminotransferase (ALT/SGPT) 42, Alkaline Phosphatase 125H, Troponin I 1.885H, Total Protein 6.5, Albumin 2.7L Height (Feet): 5 Height (Inches): 5.00 Weight (Pounds): 147 General Appearance: WD/WN, no apparent distress Neck: supple Cardiovascular: normal rate Respiratory/Chest: lungs clear Abdomen: soft Viktor García MD Mar 11, 2019 22:07
[2019-03-12] VITALS (7 sets, daily range): BP systolic 100–125; BP diastolic 54–74
--- NOTE | 2019-03-12 | NUR ---
NURSE NOTES: oral suctioned, O2sat is at 96%. HOB, no SOB noted. call light within reach. will continue to monitor pt.
--- NOTE | 2019-03-12 02:45 | Consultation ---
DATE OF CONSULTATION: 03/11/2019 GASTROENTEROLOGY CONSULTATION CONSULTING PHYSICIAN: Mann Aguilar M.D. CHIEF COMPLAINT: I was asked to see this patient by Dr. Viktor García for evaluation of the gastrostomy feeding tube placement. HISTORY OF PRESENT ILLNESS: The patient is a debilitated 83-year-old man, who was brought into the hospital due to weakness, on dialysis. The patient was then admitted to telemetry unit and appears to be somewhat confused. The family is at bedside and they answered some of the questions. The patient had a swallowing study today, which he failed and therefore has been made NPO. The patient also appears to have some contractions on examination. The family was there and the procedure for placement of gastrostomy tube was explained and all questions were answered. The patient had a recent wor-KZ-mstoaxeic myocardial infarction and he has been followed by Cardiology. PAST MEDICAL HISTORY: History of end-stage renal disease, on dialysis; history of stroke; hypertension; hyperlipidemia; benign prostatic hypertrophy; history of diabetes; history of recent pneumonia; and history of pleural effusions. ALLERGIES: None. FAMILY HISTORY: Noncontributory. SOCIAL HISTORY: The patient does not smoke or drink alcohol. He has a supportive family, who looks after his affairs. REVIEW OF SYSTEMS: Otherwise negative. PHYSICAL EXAMINATION: GENERAL: Debilitated white man seen in his room. His family at bedside. HEENT: Normocephalic and atraumatic. NECK: Supple. CHEST: Revealed coarse breath sounds. CARDIOVASCULAR: Revealed regular rate. ABDOMEN: Soft and obese. Good bowel sounds. There is a midline surgical scar, unclear nature. EXTREMITIES: Revealed no edema. LABORATORY DATA: Noted. ASSESSMENT: This patient presents with multiple medical problems including debilitation, disoriented, and confusion. He has failed his swallow test and therefore he should not be fed by mouth. The gastrostomy tube pushed through provided enteral access. Discussed with nutrition and medication administration. Once the patient improves, then he should be reserved back to an oral diet. RECOMMENDATIONS: 1. Keep the patient NPO. 2. IV fluids. 3. Follow laboratory parameters and exam. 4. Hold anticoagulation. 5. Gastrostomy tube placement later this week. Thank you for asking me to participate in the care of this patient. Mann Aguilar M.D. DR: JOAQUIN JOB#: [id number] CC:
--- NOTE | 2019-03-12 03:00 | NUR ---
NURSE NOTES: bath given, oral suction given. HOB, O2sat is at 94%. call light within reach.
[2019-03-12] MEDS: Albuterol/Ipratropium 3ml neb HHN PRN ×2 (04:15→15:45)
[2019-03-12 04:49] LABS: BASOPHILS % (AUTO) 0.7 % (0.0-2.0); EOSINOPHILS % (AUTO) 0.1 % (0.0-3.0); HEMATOCRIT 25.7 % (42.0-52.0); HEMOGLOBIN 8.3 G/DL (14.2-18.0); MEAN CORPUSCULAR VOLUME 101 FL (80-99); MONOCYTES % (AUTO) 7.7 % (1.0-10.0); NEUTROPHILS % (AUTO) 84.6 % (45.0-75.0); PLATELET COUNT 103 K/UL (150-450); RED BLOOD COUNT 2.53 M/UL (4.70-6.10); RED CELL DISTRIBUTION WIDTH 15.3 % (11.6-14.8); WHITE BLOOD COUNT 6.8 K/UL (4.8-10.8)
[2019-03-12 05:32] LABS: ANION GAP 16 mmol/L (5-15); BLOOD UREA NITROGEN 56 mg/dL (7-18); CARBON DIOXIDE 24 MMOL/L (21-32); CHLORIDE 98 MMOL/L (98-107); CREATININE 6.2 MG/DL (0.55-1.30); POTASSIUM 4.4 MMOL/L (3.5-5.1); SODIUM 138 MMOL/L (136-145)
--- NOTE | 2019-03-12 07:00 | General Progress Note ---
Assessment/Plan Assessment/Plan: Assessment - Failed swallow, aspiration risk - NSTEMI - PNA - CAD - ESRD, HD - OBS Recommendations - NPO x meds - d/c Eliquis x 3 days - EGD / PEG Sunday am, if OK with consultants - Hold off on NGT placement Subjective Allergies: Coded Allergies: No Known Allergies (Unverified , 05/25/13) Subjective Above noted no events overnight calm Objective Last 24 Hour Vital Signs Date Time Temp Pulse Resp B/P (MAP) Pulse Ox O2 Delivery O2 Flow Rate FiO2 03/12/19 04:25 66 22 97 Nasal Cannula 3.0 32 03/12/19 04:15 65 22 95 Nasal Cannula 3.0 32 03/12/19 04:15 65 22 95 Nasal Cannula 3.0 32 03/12/19 04:14 95 Nasal Cannula 3.0 32 03/12/19 04:00 97.4 65 20 100/68 (79) 98 03/12/19 04:00 67 03/12/19 04:00 Nasal Cannula 2.0 03/12/19 00:00 97.1 73 20 113/74 (87) 95 03/12/19 00:00 Nasal Cannula 2.0 03/11/19 23:30 65 03/11/19 21:00 62 124/80 03/11/19 20:00 65 03/11/19 20:00 Nasal Cannula 2.0 03/11/19 20:00 97.0 60 22 124/80 (95) 92 03/11/19 16:00 96.3 62 23 94/32 (52) 96 03/11/19 16:00 Nasal Cannula 2.0 03/11/19 15:52 62 03/11/19 15:07 96/71 03/11/19 12:00 96.3 68 23 96/71 (79) 97 03/11/19 12:00 Nasal Cannula 2.0 03/11/19 11:34 65 03/11/19 09:36 108/46 03/11/19 09:36 83 108/46 03/11/19 08:00 Nasal Cannula 2.0 03/11/19 08:00 98.6 83 21 108/46 (66) 96 03/11/19 07:44 67 Intake and Output 03/11/19 03/12/19 19:00 07:00 Intake Total 390 ml 240 ml Balance 390 ml 240 ml Intake Oral 30 ml IV Total 360 ml 240 ml # Bowel Movements 4 Laboratory Tests 03/12/19 03:50: White Blood Count 6.8, Red Blood Count 2.53L, Hemoglobin 8.3L, Hematocrit 25.7L , Mean Corpuscular Volume 101H, Mean Corpuscular Hemoglobin 32.7H, Mean Corpuscular Hemoglobin Concent 32.2, Red Cell Distribution Width 15.3H, Platelet Count 103L, Mean Platelet Volume 6.4L, Neutrophils (%) (Auto) 84.6H, Lymphocytes (%) (Auto) 7.0L, Monocytes (%) (Auto) 7.7, Eosinophils (%) (Auto) 0.1, Basophils (%) (Auto) 0.7, Sodium Level 138, Potassium Level 4.4, Chloride Level 98, Carbon Dioxide Level 24, Anion Gap 16H, Blood Urea Nitrogen 56H, Creatinine 6.2H, Estimat Glomerular Filtration Rate , Glucose Level 197H, Lactic Acid Level 1.40, Calcium Level 8.0L, Troponin I 1.809H, Pro-B-Type Natriuretic Peptide > 41305L Height (Feet): 5 Height (Inches): 5.00 Weight (Pounds): 147 Objective Elderly man NCAT supple Coarse ronchi RR Abd soft ND Neuro confused Mann Aguilar MD Mar 12, 2019 07:00
--- NOTE | 2019-03-12 07:07 | NUR ---
NURSE NOTES: Dr. Cornelius aware pt secretion increased and pt is having problem with swallowing. chest X-ray ordered from Dr. Cornelius, will noted and carry on.
--- NOTE | 2019-03-12 07:40 | NUR ---
NURSE NOTES: Received report from Charmaine Andersen RN. Observed patient in bed opens eyes spontaneously, confused, and restless. Patient pulling out IV lines and taking off gown. On O2 4L via NC, saturating 90-91%. Increased secretions noted, RT notified for deep suction. starchmaker shows NSR. Left upper arm AV shunt noted with good bruit and thrill. Right hand 22g IV intact and patent with IV fluids infusing at prescribed rate. Patient remains NPO as ordered. Safety precautions in place; bed locked, alarmed, and in lowest position, side rails up x3, and call light left within reach. Will continue to monitor patient and will continue plan of care.
--- NOTE | 2019-03-12 07:44 | NUR ---
NURSE NOTES: RT at bedside for suction.
--- NOTE | 2019-03-12 07:47 | NUR ---
HAND-OFF: Report given to Tg SIERRA. endorsed plan of care.
--- NOTE | 2019-03-12 08:10 | NUR ---
NURSE NOTES: Patient's saturation back up to 98%, remains on 4L oxygen via NC. Will continue to monitor patient.
[2019-03-12] MEDS: Flonase Nasal Inhaler 16gm NASAL SCH (09:00)
[2019-03-12] MEDS: Lisinopril 10mg tab ORAL SCH (09:00)
[2019-03-12] MEDS: Aspirin Baby 81mg ORAL SCH (09:00)
[2019-03-12] MEDS: Docusate 100mg cap ORAL SCH ×3 (09:00→17:23)
--- NOTE | 2019-03-12 09:47 | Infectious Diseases Prog Note ---
Assessment/Plan Assessment/Plan IMPRESSION: 1. Leukocytosis, resolved 2. Lactic acidosis. 3.Doubt sepsis 4. Spm-XB-lwpdnymji [place]. 5. End-stage renal disease, on hemodialysis. 6. Diabetes mellitus, type 2. 7. Hypertension. 8. BPH. 9. Systolic CHF with ejection fraction of 40%. 10. Dysphagia RECOMMENDATIONS: observe off antibiotic Will have PEG placement Subjective ROS Limited/Unobtainable: Yes Constitutional: Denies: fever Allergies: Coded Allergies: No Known Allergies (Unverified , 05/25/13) Objective Vital Signs Last 24 Hour Vital Signs Date Time Temp Pulse Resp B/P (MAP) Pulse Ox O2 Delivery O2 Flow Rate FiO2 03/12/19 09:00 102/54 03/12/19 09:00 62 102/54 03/12/19 08:00 97.8 62 22 102/54 (70) 97 03/12/19 08:00 Nasal Cannula 4.0 03/12/19 04:25 66 22 97 Nasal Cannula 3.0 32 03/12/19 04:15 65 22 95 Nasal Cannula 3.0 32 03/12/19 04:15 65 22 95 Nasal Cannula 3.0 32 03/12/19 04:14 95 Nasal Cannula 3.0 32 03/12/19 04:00 97.4 65 20 100/68 (79) 98 03/12/19 04:00 67 03/12/19 04:00 Nasal Cannula 2.0 03/12/19 00:00 97.1 73 20 113/74 (87) 95 03/12/19 00:00 Nasal Cannula 2.0 03/11/19 23:30 65 03/11/19 21:00 62 124/80 03/11/19 20:00 65 03/11/19 20:00 Nasal Cannula 2.0 03/11/19 20:00 97.0 60 22 124/80 (95) 92 03/11/19 16:00 96.3 62 23 94/32 (52) 96 03/11/19 16:00 Nasal Cannula 2.0 03/11/19 15:52 62 03/11/19 15:07 96/71 03/11/19 12:00 96.3 68 23 96/71 (79) 97 03/11/19 12:00 Nasal Cannula 2.0 03/11/19 11:34 65 Height (Feet): 5 Height (Inches): 5.00 Weight (Pounds): 145 General Appearance: no acute distress HEENT: mucous membranes moist Respiratory/Chest: lungs clear Cardiovascular: normal rate Abdomen: soft, non tender Extremities: other - R arm AV graft & edema Neurologic/Psychiatric: other - sleeping Microbiology Date/Time Source Procedure Growth Status 03/09/19 11:20 Blood Blood Culture - Preliminary NO GROWTH AFTER 48 HOURS Resulted 03/09/19 11:08 Blood Blood Culture - Preliminary NO GROWTH AFTER 48 HOURS Resulted Laboratory Tests Test 03/12/19 03:50 White Blood Count 6.8 K/UL (4.8-10.8) Red Blood Count 2.53 M/UL (4.70-6.10) L Hemoglobin 8.3 G/DL (14.2-18.0) L Hematocrit 25.7 % (42.0-52.0) L Mean Corpuscular Volume 101 FL (80-99) H Mean Corpuscular Hemoglobin 32.7 PG (27.0-31.0) H Mean Corpuscular Hemoglobin Concent 32.2 G/DL (32.0-36.0) Red Cell Distribution Width 15.3 % (11.6-14.8) H Platelet Count 103 K/UL (150-450) L Mean Platelet Volume 6.4 FL (6.5-10.1) L Neutrophils (%) (Auto) 84.6 % (45.0-75.0) H Lymphocytes (%) (Auto) 7.0 % (20.0-45.0) L Monocytes (%) (Auto) 7.7 % (1.0-10.0) Eosinophils (%) (Auto) 0.1 % (0.0-3.0) Basophils (%) (Auto) 0.7 % (0.0-2.0) Sodium Level 138 MMOL/L (136-145) Potassium Level 4.4 MMOL/L (3.5-5.1) Chloride Level 98 MMOL/L (98-107) Carbon Dioxide Level 24 MMOL/L (21-32) Anion Gap 16 mmol/L (5-15) H Blood Urea Nitrogen 56 mg/dL (7-18) H Creatinine 6.2 MG/DL (0.55-1.30) H Estimat Glomerular Filtration Rate mL/min (>60) Glucose Level 197 MG/DL (74-106) H Lactic Acid Level 1.40 mmol/L (0.4-2.0) Calcium Level 8.0 MG/DL (8.5-10.1) L Troponin I 1.809 ng/mL (0.000-0.056) Pro-B-Type Natriuretic Peptide > 07117 pg/mL (0-125) H Current Medications Medications (Trade) Dose Ordered Sig/Stephany Route PRN Reason Start Time Stop Time Status Last Admin Dose Admin Acetaminophen (Tylenol) 650 mg Q6H PRN ORAL Mild Pain/Temp > 100.5 03/09/19 07:01 04/07/19 07:00 03/10/19 03:10 Albuterol/ Ipratropium (Albuterol/ Ipratropium) 3 ml Q4HRT PRN HHN Shortness of Breath 03/11/19 22:30 03/16/19 22:29 03/12/19 04:15 Aspirin (ASA) 81 mg DAILY ORAL 03/09/19 09:00 04/07/19 08:59 03/11/19 09:39 Atorvastatin Calcium (Lipitor) 20 mg BEDTIME ORAL 03/09/19 21:00 04/07/19 20:59 03/10/19 20:42 Barium Sulfate (Varibar Honey) 250 ml NOW PRN MC RAD 03/11/19 12:00 03/14/19 11:58 Barium Sulfate (Varibar [place]) 240 ml NOW PRN MC RAD 03/11/19 12:00 03/14/19 11:58 Barium Sulfate (Varibar Pudding) 230 ml NOW PRN RAD 03/11/19 12:00 03/14/19 11:58 Carvedilol (Coreg) 3.125 mg EVERY 12 HOURS ORAL 03/10/19 21:00 04/09/19 20:59 03/11/19 09:36 Clonidine HCl (Catapres Tab) 0.1 mg Q8H PRN SL For High Blood Pressure 03/11/19 20:00 04/10/19 19:59 Dextrose 1,000 ml @ 30 mls/hr Q24H IV 03/09/19 14:07 04/08/19 14:06 03/10/19 22:53 Dextrose (Dextrose 50%) 25 ml Q30M PRN IV Hypoglycemia 1/12/20 07:00 04/07/19 06:59 Dextrose (Dextrose 50%) 50 ml Q30M PRN IV Hypoglycemia 03/09/19 07:00 04/07/19 06:59 Docusate Sodium (Colace) 100 mg TID ORAL 03/09/19 09:00 04/07/19 08:59 03/11/19 09:37 Ergocalciferol (Drisdol) 50,000 intlu ONCE A WEEK ORAL 03/15/19 18:00 04/07/19 17:59 Finasteride (Proscar) 5 mg DAILY ORAL 03/09/19 09:00 04/07/19 08:59 03/11/19 09:39 Fluticasone Propionate (Flonase) 2 spray DAILY NASAL 03/09/19 09:00 04/07/19 08:59 03/11/19 09:38 Guaifenesin/ Codeine Phosphate (Robitussin with codeine) 5 ml Q4H PRN ORAL For Cough 03/09/19 07:00 04/07/19 06:59 03/10/19 03:09 Hydralazine HCl (Apresoline) 25 mg Q4H PRN ORAL bp over 160 syst 03/09/19 07:03 04/07/19 07:02 03/10/19 03:09 Lisinopril (ZestriL) 10 mg DAILY ORAL 03/11/19 09:00 04/10/19 08:59 03/11/19 09:36 Lorazepam (Ativan 2mg/ml 1ml) 0.25 mg Q6H PRN IV For Anxiety 03/11/19 20:00 03/18/19 19:59 03/11/19 23:05 Nitroglycerin (Ntg) 1 patch Q24H TDERMAL 03/09/19 14:30 04/08/19 14:29 03/11/19 15:07 Ondansetron HCl (Zofran) 4 mg Q4H PRN IVP Nausea & Vomiting 03/09/19 07:03 04/08/19 07:02 03/10/19 03:09 Pantoprazole (Protonix) 40 mg BID ORAL 03/09/19 09:00 04/07/19 06:59 03/11/19 09:36 Risperidone (RisperDAL) 1 mg BEDTIME ORAL 03/10/19 21:00 04/09/19 20:59 03/10/19 20:42 Sevelamer Carbonate (Renvela) 1,600 mg THREE TIMES A DAY ORAL 03/10/19 13:00 04/08/19 12:59 03/11/19 09:36 Tamsulosin HCl (Flomax) 0.4 mg BEDTIME ORAL 03/09/19 21:00 04/07/19 20:59 03/10/19 20:42 Boyd Tee MD Mar 12, 2019 09:46
--- NOTE | 2019-03-12 10:10 | NUR ---
RADIOLOGY DEPT., CHEST X-RAY DONE.-P.DYE
--- NOTE | 2019-03-12 10:25 | NUR ---
NURSE NOTES: HD nurse at bedside; patient in no apparent distress at this time. O2 saturation 100% on 4L nasal cannula. Will continue to monitor.
[2019-03-12] MEDS: Dextrose 10% 1,000 ML IV SCH (10:45)
--- NOTE | 2019-03-12 10:53 | NUR ---
ST NOTES: SUBJECTIVE: PATIENT NOT CONSISTENTLY ALERT FO PO TRIALS AT THIS TIME. D/W RN AND DAUGHTER PLANS FOR PEG ON SUNDAY. REVIEWED IMAGES AND COMPLETE MBSS REPORT. UPDATED MOD BARIUM SWALLOW STUDY REPORT. COMPLETED MOD BARIUM SWALLOW STUDY (MBSS), SEE FULL REPORT. INITIAL IMPRESSIONS: SEVERE OROPHARYNGEAL WITH SIGNIFICANT INCREASE IN ORAL PREP AND OROPHARYNGEAL TRANSIT TIMES DUE TO SENSORIMOTOR DEFICITS. MILD TO MODERATE ESOPHAGEAL DYSPHAGIA (LATERAL LIMITED VIEW). ABOVE PROBLEMS COMPOUNDED BY DEFICITS IN COGNITIVE-BEHAVIORAL (TALKS WITH PO, POOR FOLLOWING COMMANDS/USING STRATEGIES) AND RESPIRATORY (RAPID RESP RATE ABOVE 25, GETS SOB) DISORDER. LEVEL 1 ON THE DYSPHAGIA OUTCOME SEVERITY SCALE NPO: UNABLE TO SAFELY MOST PO SAFELY. THIN LIQUIDS: TRACE AND SILENT ASPIRATION WITH CUP DUE TO DELAYED SWALLOW, LATE/INCOMPLETE LARYNGEAL VESTIBULE CLOSURE, REDUCED TONGUE BASE RETRACTION, AND HYOLARYNGEAL EXCURSION TRACE AND DEEP LARYNGEAL PENETRATION WITH BOTH TSPs WITH WEAK THROAT CLEAR/COUGH DUE TO INCOMPLETE AND LATE LARYNGEAL VESTIBULE CLOSURE (LVC), AND MOSTLY REDUCED TONGUE BASE RETRACTION. ADDITIONAL RISK FOR ASP AND LP AFTER THE SWALLOW MOSTLY DUE TO RETROGRADE ESOPHAGEAL BACKFLOW THROUGH THE PHARYNGOESOPHAGEAL SEGMENT OPENING (BACKFLOW) AND OVERALL REDUCED PHARYNGEAL STRENGTH. REQUIRED SUCTION AFTER TSP AND CUP OF THIN LIQUIDS. NECTAR THICK LIQUIDS DEEP SILENT LP WITH TSP AND CUP CONTACTS VOCAL FOLDS W/O EJECTION DUE TO LATE/INC LVC, REDUCED TONGUE BASE RETRACTION, HYOLARYNGEAL EXCURSION, REDUCED PHARYNGEAL SEGMENT OPENING, AND ESOPHAGEAL DYSMOTILITY RESULTING IN RETROGRADE ESOPHAGEAL BACKFLOW THROUGH THE PHARYNGOESOPHAGEAL SEGMENT OPENING. NTL CUP WASH (AFTER PUDDING) HAD DEEP LP TO LEVEL OF VOCAL FOLDS BUT EJECTED DUE TO SAME PROBLEMS NOTED ABOVE. HONEY THICK LIQUIDS TSP TRACE AND DEEP LP W/O EJECTION DUE TO ESOPHAGEAL DYSMOTILITY AND BACKFLOW THROUGH THE PES OPENING AND PHARYNGEAL WEAKNESS/DYSMOTILITY NOTED ABOVE (POOR TONGUE BASE RETRACTION AND HYOLARYNGEAL EXCURSION) PUDDING TSP HE HAD SIGNIFICANT BACKFLOW AND REDUCED PHARYNGEAL/ MOTILITY NOTED ABOVE WITH ALL CONSISTENCIES. TRACE AND DEEP LP TO LEVEL OF VOCAL FOLDS NOT EJECTED. AFTER STUDY GIVEN 1/2 TSP WATER X3 SINCE HE WAS REFUSING SUCTION. OVERALL COMPONENTS THAT INCREASE ASPIRATION/PENETRATION RISK AND REDUCED SWALLOW EFFICIENCY: SOB / INCREASED RESP RATE (ABOVE 25 CAN ASPIRATE WITH COPD) ORAL PREP - ORAL SENSORY DEFICITS/AWARENESS/APRAXIA Oral Impairment Lip Closure (R WORSE THAN LEFT) Tongue Control Bolus prep/mastication (likely) Bolus transport/lingual motion Oral residue Delayed Initiation and weak pharyngeal swallow (delayed/weak 2nd swallow) Pharyngeal Impairment Laryngeal elevation (LE) Ant. hyoid excursion (AHE) Epiglottic movement Late/incomplete laryngeal vestibule closure Pharyngeal stripping wave Pharyngoesophageal segment opening Tongue base retraction Pharyngeal residue Decreased pharyngeal sensation Esophageal Impairment Esophageal Clearance/backflow through the pes opening TRIAL TX LIMITED DUE TO POOR ABILITY TO FOLLOW COMMANDS EVEN IN CONGOLESE AND WITH TACTILE AND VERBAL CUES. EXTRA HARD SWALLOWS AND LIQUID WASH SOMETIMES HELPED TO CLEAR SOME OF THE RESIDUE. NEEDED TO REST HE WOULD GET SOB AND RESP RATE WOULD GO ABOVE 25 (HIGHER ASP RISK). NEEDED SOME SUCTION POST THIN LIQUIDS TRIALS. RECOMMENDATIONS: CONSIDER KEEPING PT NPO AND INITIATING NONORAL FEEDINGS FOR NOW. CONSIDER LONGER TERM TF (PEG) DISCUSSED WITH DR LOVELACE AND PATIENT'S SISTER. GIVEN THAT PATIENT IS REFUSING PO INTAKE AND HE HAS A HIGH RISK OF CHRONIC TRACE ASPIRATION WITH ALL CONSISTENCIES,THE PATIENT'S SISTER, ESTER, AGREED TO A NGT NOW AND A FUTURE PEG (DR LOVELACE TO CALL DR BERNSTEIN). ORAL GRATIFICATION SHOULD BE CONSIDERED WHEN THE PATIENT IS LESS SOB AND STRONGER AND AFTER A REPEAT MOD BARIUM SWALLOW STUDY IS COMPLETED AN OUTPT (POST DYSPHAGIA TRIAL TX AND MORE TIME). CONSULT WITH GI REGARDING LONGTERM NONORAL FEEDINGS (PEG) AND ESOPHAGEAL DYSPHAGIA. CURRENTLY ON PROTONIX 40 MG. EDUCATED/TRAINED MARIELA ELLIS AND TABATHA MCBRIDE IN POSTED ASP PRECAUTIONS WHEN TUBE FEEDINGS RUNNING AND ORAL CARE/SUCTION PRN. CONTINUE WITH SKILLED DYSPHAGIA MANAGEMENT AND TX AND COGNITIVE-COM EVAL/TX FOR COMMUNICATION TIPS. DR LOVELACE AGREED WITH RECOMMEDATIONS D/W HIS DTR, ESTER RESULTS AND RECOMMENDATIONS OF THE MBSS
--- NOTE | 2019-03-12 11:47 | NUR ---
NURSE NOTES: Albumin administered by dialysis nurse
[2019-03-12] MEDS ORDERED: LORazepam 1mg tab ORAL PRN (12:28)
[2019-03-12] MEDS ORDERED: LORazepam Inj 2mg/ml 1ml IV PRN (12:30)
--- NOTE | 2019-03-12 12:30 | NUR ---
NURSE NOTES: Dr Carrera at bedside with new orders noted. Notified and made aware that patient is very restless and is pulling on IV and other medical devices, also notified MD regarding low BP, unable to give Ativan IV at this time. Ordered bilateral wrist restraint for patient; noted, will enter, and will carry out order. HD is still ongoing at this time. Will continue to monitor patient.
--- NOTE | 2019-03-12 13:00 | NUR ---
NURSE NOTES: HD completed, reported 2L output. Patient tolerated well. BP 123/63. Provided linen change, oral care, and meche care. Gown changed, patient repositioned. Bed locked, alarmed, and in lowest position, side rails up x3, and call light left within reach. Patient resting in bed at this time. Will continue to monitor.
--- NOTE | 2019-03-12 13:41 | Diagnostic Imaging Report ---
Indication: Dyspnea Technique: XRAY Chest 1v Comparison: 03/08/2019 Findings: Heart size and mediastinal contours are stable. There is worsening of aeration with increasing interstitial opacification/edema and more dense predominantly perihilar airspace opacities. Possibility of a small right pleural effusion is not excluded. No appreciable pneumothorax. There are degenerative changes in the spine. Some enteric contrast is noted within the colon. Vascular stent again noted projecting over the left axillary region. Impression: Worsening aeration which may be related to worsening CHF/pulmonary edema. Superimposed pneumonia not excluded and follow-up recommended.
--- NOTE | 2019-03-12 13:47 | NUR ---
CASE MANAGEMENT:REVIEW 03/11/2019 SI;NSTEMI. RENAL FAILURE. ELEVATED TROPONIN. 96.3 83 23 94/32 92% ON 2L NC RBC 2.52 H/H 8.3/25.3 PHOS 6.0 AST 55 TROP 1.885 IS;COREG Q12 HRS ZESTRIL QD DUO NEB HHN Q4HRT CLONIDINE SL Q6 HRS PRN SDU STATUS PLAN OF CARE; PEG PLACEMENT DCP; FROM HOME Addendum: 03/12/19 at 1416 by ANTHONY TODD LVN LVN INCORRECT INFO FOR PEG PLACEMENT
--- NOTE | 2019-03-12 13:50 | Nephrology Progress Note ---
Assessment/Plan Problem List: (1) ESRD (end stage renal disease) on dialysis (2) Cardiomyopathy (3) NSTEMI (non-ST elevated myocardial infarction) Assessment: Troponin lowering Assessment ESRD- HTN Anemia DM CAD- Cardiomyopathy s/p SEPSIS AL Plan recent 2D echo 40% EjFx Pulm Toilet HD 03/10/2019 next 03/12 Keep BP in check - Hold bp meds for now due to low BP Albumin bolus ASA Nitrate per consultants per orders Subjective ROS Limited/Unobtainable: No Constitutional: Reports: malaise, weakness Objective Objective Last 24 Hour Vital Signs Date Time Temp Pulse Resp B/P (MAP) Pulse Ox O2 Delivery O2 Flow Rate FiO2 03/12/19 12:00 98.0 72 22 123/63 (83) 95 03/12/19 12:00 Nasal Cannula 4.0 03/12/19 11:30 66 03/12/19 09:00 102/54 03/12/19 09:00 62 102/54 03/12/19 08:00 97.8 62 22 102/54 (70) 97 03/12/19 08:00 Nasal Cannula 4.0 03/12/19 07:47 65 03/12/19 04:25 66 22 97 Nasal Cannula 3.0 32 03/12/19 04:15 65 22 95 Nasal Cannula 3.0 32 03/12/19 04:15 65 22 95 Nasal Cannula 3.0 32 03/12/19 04:14 95 Nasal Cannula 3.0 32 03/12/19 04:00 97.4 65 20 100/68 (79) 98 03/12/19 04:00 67 03/12/19 04:00 Nasal Cannula 2.0 03/12/19 00:00 97.1 73 20 113/74 (87) 95 03/12/19 00:00 Nasal Cannula 2.0 03/11/19 23:30 65 03/11/19 21:00 62 124/80 03/11/19 20:00 65 03/11/19 20:00 Nasal Cannula 2.0 03/11/19 20:00 97.0 60 22 124/80 (95) 92 03/11/19 16:00 96.3 62 23 94/32 (52) 96 03/11/19 16:00 Nasal Cannula 2.0 03/11/19 15:52 62 03/11/19 15:07 96/71 Intake and Output 03/11/19 03/12/19 19:00 07:00 Intake Total 390 ml 360 ml Balance 390 ml 360 ml Intake Oral 30 ml IV Total 360 ml 360 ml # Bowel Movements 4 Laboratory Tests 03/12/19 03:50: White Blood Count 6.8, Red Blood Count 2.53L, Hemoglobin 8.3L, Hematocrit 25.7L , Mean Corpuscular Volume 101H, Mean Corpuscular Hemoglobin 32.7H, Mean Corpuscular Hemoglobin Concent 32.2, Red Cell Distribution Width 15.3H, Platelet Count 103L, Mean Platelet Volume 6.4L, Neutrophils (%) (Auto) 84.6H, Lymphocytes (%) (Auto) 7.0L, Monocytes (%) (Auto) 7.7, Eosinophils (%) (Auto) 0.1, Basophils (%) (Auto) 0.7, Sodium Level 138, Potassium Level 4.4, Chloride Level 98, Carbon Dioxide Level 24, Anion Gap 16H, Blood Urea Nitrogen 56H, Creatinine 6.2H, Estimat Glomerular Filtration Rate , Glucose Level 197H, Lactic Acid Level 1.40, Calcium Level 8.0L, Troponin I 1.809H, Pro-B-Type Natriuretic Peptide > 56729E Height (Feet): 5 Height (Inches): 5.00 Weight (Pounds): 145 General Appearance: no apparent distress Respiratory/Chest: decreased breath sounds Abdomen: distended Objective no change Mikey Brandt MD Mar 12, 2019 13:50
[2019-03-12] MEDS: Nitroglycerin Patch 0.4mg TDERMAL SCH (15:01)
--- NOTE | 2019-03-12 17:01 | General Progress Note ---
Assessment/Plan Problem List: (1) Hypoglycemia ICD Codes: E16.2 - Hypoglycemia, unspecified SNOMED: 038678757 (2) Hemodialysis disequilibrium syndrome ICD Codes: E87.8 - Other disorders of electrolyte and fluid balance, not elsewhere classified SNOMED: 92064686 (3) NSTEMI (non-ST elevated myocardial infarction) ICD Codes: I21.4 - Non-ST elevation (NSTEMI) myocardial infarction SNOMED: 83166194 (4) ESRD (end stage renal disease) on dialysis ICD Codes: N18.6 - End stage renal disease; Z99.2 - Dependence on renal dialysis SNOMED: 561518987 (5) Diabetes ICD Codes: E11.9 - Type 2 diabetes mellitus without complications SNOMED: 48974266 (6) vascular dementia Assessment/Plan: glucose values are more stable no need for diabetic medications continue to monitor glucose hypoglycemia protocol in order Subjective ROS Limited/Unobtainable: Yes Allergies: Coded Allergies: No Known Allergies (Unverified , 05/25/13) Subjective events noted glucose values are more stable - no hypos Item Value Date Time Bedside Blood Glucose 111 mg/dl 03/12/19 1646 Bedside Blood Glucose 120 mg/dl 03/12/19 1128 Bedside Blood Glucose 147 mg/dl H 03/12/19 0630 Bedside Blood Glucose 146 mg/dl H 03/11/19 2100 Bedside Blood Glucose 162 mg/dl H 03/11/19 1651 Bedside Blood Glucose 132 mg/dl H 03/11/19 1140 Objective Last 24 Hour Vital Signs Date Time Temp Pulse Resp B/P (MAP) Pulse Ox O2 Delivery O2 Flow Rate FiO2 03/12/19 16:00 98.2 81 20 107/61 (76) 99 03/12/19 16:00 Nasal Cannula 4.0 03/12/19 15:45 63 26 90 Nasal Cannula 3.0 32 03/12/19 15:28 74 03/12/19 15:01 123/63 03/12/19 12:00 98.0 72 22 123/63 (83) 95 03/12/19 12:00 Nasal Cannula 4.0 03/12/19 11:30 66 03/12/19 09:00 102/54 03/12/19 09:00 62 102/54 03/12/19 08:00 97.8 62 22 102/54 (70) 97 03/12/19 08:00 Nasal Cannula 4.0 03/12/19 07:47 65 03/12/19 04:25 66 22 97 Nasal Cannula 3.0 32 03/12/19 04:15 65 22 95 Nasal Cannula 3.0 32 03/12/19 04:15 65 22 95 Nasal Cannula 3.0 32 03/12/19 04:14 95 Nasal Cannula 3.0 32 03/12/19 04:00 97.4 65 20 100/68 (79) 98 03/12/19 04:00 67 03/12/19 04:00 Nasal Cannula 2.0 03/12/19 00:00 97.1 73 20 113/74 (87) 95 03/12/19 00:00 Nasal Cannula 2.0 03/11/19 23:30 65 03/11/19 21:00 62 124/80 03/11/19 20:00 65 03/11/19 20:00 Nasal Cannula 2.0 03/11/19 20:00 97.0 60 22 124/80 (95) 92 Intake and Output 03/11/19 03/12/19 19:00 07:00 Intake Total 390 ml 360 ml Balance 390 ml 360 ml Intake Oral 30 ml IV Total 360 ml 360 ml # Bowel Movements 4 Laboratory Tests 03/12/19 03:50: White Blood Count 6.8, Red Blood Count 2.53L, Hemoglobin 8.3L, Hematocrit 25.7L , Mean Corpuscular Volume 101H, Mean Corpuscular Hemoglobin 32.7H, Mean Corpuscular Hemoglobin Concent 32.2, Red Cell Distribution Width 15.3H, Platelet Count 103L, Mean Platelet Volume 6.4L, Neutrophils (%) (Auto) 84.6H, Lymphocytes (%) (Auto) 7.0L, Monocytes (%) (Auto) 7.7, Eosinophils (%) (Auto) 0.1, Basophils (%) (Auto) 0.7, Sodium Level 138, Potassium Level 4.4, Chloride Level 98, Carbon Dioxide Level 24, Anion Gap 16H, Blood Urea Nitrogen 56H, Creatinine 6.2H, Estimat Glomerular Filtration Rate , Glucose Level 197H, Lactic Acid Level 1.40, Calcium Level 8.0L, Troponin I 1.809H, Pro-B-Type Natriuretic Peptide > 64238H Height (Feet): 5 Height (Inches): 5.00 Weight (Pounds): 145 General Appearance: no apparent distress Neck: normal alignment Cardiovascular: normal rate Respiratory/Chest: lungs clear Abdomen: normal bowel sounds Pelvis: normal external exam Objective Current Medications Medications (Trade) Dose Ordered Sig/Stephany Route PRN Reason Start Time Stop Time Status Last Admin Dose Admin Acetaminophen (Tylenol) 650 mg Q6H PRN ORAL Mild Pain/Temp > 100.5 03/09/19 07:01 04/07/19 07:00 03/10/19 03:10 Albuterol/ Ipratropium (Albuterol/ Ipratropium) 3 ml Q4HRT PRN HHN Shortness of Breath 03/11/19 22:30 03/16/19 22:29 03/12/19 15:45 Aspirin (ASA) 81 mg DAILY ORAL 03/09/19 09:00 04/07/19 08:59 03/11/19 09:39 Atorvastatin Calcium (Lipitor) 20 mg BEDTIME ORAL 03/09/19 21:00 04/07/19 20:59 03/10/19 20:42 Barium Sulfate (Varibar Honey) 250 ml NOW PRN MC RAD 03/11/19 12:00 03/14/19 11:58 Barium Sulfate (Varibar [place]) 240 ml NOW PRN MC RAD 03/11/19 12:00 03/14/19 11:58 Barium Sulfate (Varibar [place]ud[place]) 230 ml NOW PRN MC RAD 03/11/19 12:00 03/14/19 11:58 Carvedilol (Coreg) 3.125 mg EVERY 12 HOURS ORAL 03/10/19 21:00 04/09/19 20:59 03/11/19 09:36 Clonidine HCl (Catapres Tab) 0.1 mg Q8H PRN SL For High Blood Pressure 03/11/19 20:00 04/10/19 19:59 Dextrose 1,000 ml @ 30 mls/hr Q24H IV 03/09/19 14:07 04/08/19 14:06 03/12/19 10:45 Dextrose (Dextrose 50%) 25 ml Q30M PRN IV Hypoglycemia 03/09/19 07:00 04/07/19 06:59 Dextrose (Dextrose 50%) 50 ml Q30M PRN IV Hypoglycemia 03/09/19 07:00 04/07/19 06:59 Docusate Sodium (Colace) 100 mg TID ORAL 03/09/19 09:00 04/07/19 08:59 03/11/19 09:37 Ergocalciferol (Drisdol) 50,000 intlu ONCE A WEEK ORAL 03/15/19 18:00 04/07/19 17:59 Finasteride (Proscar) 5 mg DAILY ORAL 03/09/19 09:00 04/07/19 08:59 03/11/19 09:39 Fluticasone Propionate (Flonase) 2 spray DAILY NASAL 03/09/19 09:00 04/07/19 08:59 03/11/19 09:38 Guaifenesin/ Codeine Phosphate (Robitussin with codeine) 5 ml Q4H PRN ORAL For Cough 03/09/19 07:00 04/07/19 06:59 03/10/19 03:09 Hydralazine HCl (Apresoline) 25 mg Q4H PRN ORAL bp over 160 syst 03/09/19 07:03 04/07/19 07:02 03/10/19 03:09 Lisinopril (ZestriL) 10 mg DAILY ORAL 03/11/19 09:00 04/10/19 08:59 03/11/19 09:36 Lorazepam (Ativan 2mg/ml 1ml) 0.25 mg Q6H PRN IV For Anxiety 03/12/19 12:30 03/18/19 19:59 Lorazepam (Ativan) 1 mg Q6H PRN ORAL For Anxiety 03/12/19 12:28 03/19/19 12:27 Nitroglycerin (Ntg) 1 patch Q24H TDERMAL 03/09/19 14:30 04/08/19 14:29 03/12/19 15:01 Ondansetron HCl (Zofran) 4 mg Q4H PRN IVP Nausea & Vomiting 03/09/19 07:03 04/08/19 07:02 03/10/19 03:09 Pantoprazole (Protonix) 40 mg BID ORAL 03/09/19 09:00 04/07/19 06:59 03/11/19 09:36 Risperidone (RisperDAL) 1 mg BEDTIME ORAL 03/12/19 21:00 04/11/19 20:59 Sevelamer Carbonate (Renvela) 1,600 mg THREE TIMES A DAY ORAL 03/10/19 13:00 04/08/19 12:59 03/11/19 09:36 Tamsulosin HCl (Flomax) 0.4 mg BEDTIME ORAL 03/09/19 21:00 04/07/19 20:59 03/10/19 20:42 Shawn Saldana MD Mar 12, 2019 17:01
--- NOTE | 2019-03-12 17:45 | Progress Note ---
DATE: 03/12/2019 SUBJECTIVE: The patient is in bed. He is not in restraints anymore, attempting to come out of bed and gets agitated, less agitated than previous encounter. The patient was having dialysis today, difficulty to redirect, confused. MENTAL STATUS EXAMINATION: The patient is alert, oriented times self. Minimally verbal. Mood is anxious. Affect is flat. Thought process, disorganized. Thought content, no suicidal or homicidal ideation. Cognition is impaired. Insight and judgment non-existent. ASSESSMENT: Dementia with behavioral disturbance. PLAN: 1. We will continue risperidone 1 mg at bedtime. 2. Ativan. The patient's blood pressure is low. 3. Therefore, we will place the patient Zi Carrera M.D. DR: REBEKA JOB#: [id number] CC: [id number]
--- NOTE | 2019-03-12 18:30 | Cardiac Electrophysiology PN ---
Assessment/Plan Assessment/Plan 1. Troponin elevation, could be due to renal failure. Troponin peak is however at 3.5 that is coming down to 1.88. Confused in restraints. No CP or SOB. EKG no acute changes. EF 40-45% On aspirin, Coreg 3.125 bid and Lipitor. Will treat medically at this time 2. Cardiomyopathy with EF of 40%. BNP is more than 35,000. Echo on 02/02/2019 showed EF of 55% to 60%, however repeat echocardiogram showed EF 40%. On Coreg, Lisinopril 10 daily and HD 3. On Eliquis for CVA and PVD. No Fib or DVT or PE 4. End-stage renal disease, on hemodialysis. 5. Lactic acidosis. 6. Hyperlipidemia, on Lipitor. 7. Dysphagia. Plan for EGD/PEG Sunday but no order or consent yet SEB RN Subjective Subjective Alert in NAD. No CP or SOB. Troponin levels coming down. Had HD today. PEG tomorrow pending Objective Last 24 Hour Vital Signs Date Time Temp Pulse Resp B/P (MAP) Pulse Ox O2 Delivery O2 Flow Rate FiO2 03/12/19 16:00 98.2 81 20 107/61 (76) 99 03/12/19 16:00 Nasal Cannula 4.0 03/12/19 15:45 63 26 90 Nasal Cannula 3.0 32 03/12/19 15:28 74 03/12/19 15:01 123/63 03/12/19 12:00 98.0 72 22 123/63 (83) 95 03/12/19 12:00 Nasal Cannula 4.0 03/12/19 11:30 66 03/12/19 09:00 102/54 03/12/19 09:00 62 102/54 03/12/19 08:00 97.8 62 22 102/54 (70) 97 03/12/19 08:00 Nasal Cannula 4.0 03/12/19 07:47 65 03/12/19 04:25 66 22 97 Nasal Cannula 3.0 32 03/12/19 04:15 65 22 95 Nasal Cannula 3.0 32 03/12/19 04:15 65 22 95 Nasal Cannula 3.0 32 03/12/19 04:14 95 Nasal Cannula 3.0 32 03/12/19 04:00 97.4 65 20 100/68 (79) 98 03/12/19 04:00 67 03/12/19 04:00 Nasal Cannula 2.0 03/12/19 00:00 97.1 73 20 113/74 (87) 95 03/12/19 00:00 Nasal Cannula 2.0 03/11/19 23:30 65 03/11/19 21:00 62 124/80 03/11/19 20:00 65 03/11/19 20:00 Nasal Cannula 2.0 03/11/19 20:00 97.0 60 22 124/80 (95) 92 Intake and Output 03/11/19 03/12/19 19:00 07:00 Intake Total 390 ml 360 ml Balance 390 ml 360 ml Intake Oral 30 ml IV Total 360 ml 360 ml # Bowel Movements 4 Laboratory Tests Test 03/12/19 03:50 White Blood Count 6.8 K/UL (4.8-10.8) Red Blood Count 2.53 M/UL (4.70-6.10) L Hemoglobin 8.3 G/DL (14.2-18.0) L Hematocrit 25.7 % (42.0-52.0) L Mean Corpuscular Volume 101 FL (80-99) H Mean Corpuscular Hemoglobin 32.7 PG (27.0-31.0) H Mean Corpuscular Hemoglobin Concent 32.2 G/DL (32.0-36.0) Red Cell Distribution Width 15.3 % (11.6-14.8) H Platelet Count 103 K/UL (150-450) L Mean Platelet Volume 6.4 FL (6.5-10.1) L Neutrophils (%) (Auto) 84.6 % (45.0-75.0) H Lymphocytes (%) (Auto) 7.0 % (20.0-45.0) L Monocytes (%) (Auto) 7.7 % (1.0-10.0) Eosinophils (%) (Auto) 0.1 % (0.0-3.0) Basophils (%) (Auto) 0.7 % (0.0-2.0) Sodium Level 138 MMOL/L (136-145) Potassium Level 4.4 MMOL/L (3.5-5.1) Chloride Level 98 MMOL/L (98-107) Carbon Dioxide Level 24 MMOL/L (21-32) Anion Gap 16 mmol/L (5-15) H Blood Urea Nitrogen 56 mg/dL (7-18) H Creatinine 6.2 MG/DL (0.55-1.30) H Estimat Glomerular Filtration Rate mL/min (>60) Glucose Level 197 MG/DL (74-106) H Lactic Acid Level 1.40 mmol/L (0.4-2.0) Calcium Level 8.0 MG/DL (8.5-10.1) L Troponin I 1.809 ng/mL (0.000-0.056) Pro-B-Type Natriuretic Peptide > 07523 pg/mL (0-125) H Objective HEAD AND NECK: No JVD. LUNGS: Clear. CARDIOVASCULAR: Regular S1 and S2 with no gallop or murmur. ABDOMEN: Soft. EXTREMITIES: No pitting edema. Dialysis access in the left arm. Dariel Corcoran MD Mar 12, 2019 18:30
--- NOTE | 2019-03-12 19:19 | NUR ---
HAND-OFF: Report given to Uziel Walker RN. Endorsed plan of care. Patient in stable condition.
--- NOTE | 2019-03-12 19:30 | NUR ---
NURSE NOTES: Pt report received from Katiuska Hollingsworth RN. pt remains stable. pt is confused neuro mendoza, how ever alert and oriented times 1. pt is on entry level receptionist showing NSR, no cardiac distress noted. pt is on 4L NC, secretions noted from mouth, and audible. pt suctioned from yonker, and repositioned up right, pt is able to sat at 94%. pt bed is low, locked, armed, bed rails up times 3, call light within easy reach of pt. will follow plan of care.
--- NOTE | 2019-03-12 19:37 | Pulmonology Progress Note ---
Assessment/Plan Problems: (1) NSTEMI (non-ST elevated myocardial infarction) (2) ESRD (end stage renal disease) on dialysis (3) Cardiomyopathy (4) HTN (hypertension) (5) HLD (hyperlipidemia) (6) CVA (cerebral vascular accident) Assessment/Plan ASSESSMENT: The patient is an 83-year-old male with a history of prior CVA, end -stage renal disease, on dialysis, hypertension, hyperlipidemia, CAD, CVA, and BPH presenting with dizziness and [id number] [place]. He is fairly stable from a respiratory standpoint. PROBLEM LIST: 1. Non ST-elevation myocardial infarction. 2. Recent pneumonia. 3. Dizziness. 4. End-stage renal disease, on dialysis. 5. CAD. 6. Hypertension. 7. Hyperlipidemia. 8. Anemia. 9. Diabetes. TREATMENT PLAN: 1. Optimize pulmonary hygiene/mobilize as tolerated. 2. Titrate O2 3. P.r.n. bronchodilators. 4. Observe off antibiotics per ID 5. Follow up Cardiology recommendations, medical management of non-STEMI. 6. Eliquis held for PEG 7. Monitor volumes and renal function, dialysis per Renal. 8. PEG sunday 9. FC, continue to discuss GOC Subjective Allergies: Coded Allergies: No Known Allergies (Unverified , 05/25/13) Subjective NAEO AFVSS O2 needs stable @ 2L + SOB no cough no CP no FC Failed VSS plan for PEG Objective Last 24 Hour Vital Signs Date Time Temp Pulse Resp B/P (MAP) Pulse Ox O2 Delivery O2 Flow Rate FiO2 03/12/19 16:00 98.2 81 20 107/61 (76) 99 03/12/19 16:00 Nasal Cannula 4.0 03/12/19 15:45 63 26 90 Nasal Cannula 3.0 32 03/12/19 15:28 74 03/12/19 15:01 123/63 03/12/19 12:00 98.0 72 22 123/63 (83) 95 03/12/19 12:00 Nasal Cannula 4.0 03/12/19 11:30 66 03/12/19 09:00 102/54 03/12/19 09:00 62 102/54 03/12/19 08:00 97.8 62 22 102/54 (70) 97 03/12/19 08:00 Nasal Cannula 4.0 03/12/19 07:47 65 03/12/19 04:25 66 22 97 Nasal Cannula 3.0 32 03/12/19 04:15 65 22 95 Nasal Cannula 3.0 32 03/12/19 04:15 65 22 95 Nasal Cannula 3.0 32 03/12/19 04:14 95 Nasal Cannula 3.0 32 03/12/19 04:00 97.4 65 20 100/68 (79) 98 03/12/19 04:00 67 03/12/19 04:00 Nasal Cannula 2.0 03/12/19 00:00 97.1 73 20 113/74 (87) 95 03/12/19 00:00 Nasal Cannula 2.0 03/11/19 23:30 65 03/11/19 21:00 62 124/80 03/11/19 20:00 65 03/11/19 20:00 Nasal Cannula 2.0 03/11/19 20:00 97.0 60 22 124/80 (95) 92 Intake and Output 03/11/19 03/12/19 19:00 07:00 Intake Total 390 ml 360 ml Balance 390 ml 360 ml Intake Oral 30 ml IV Total 360 ml 360 ml # Bowel Movements 4 General Appearance: cachetic HEENT: normocephalic, atraumatic Respiratory/Chest: rhonchi Cardiovascular: normal peripheral pulses, normal rate, regular rhythm Abdomen: normal bowel sounds, soft, non tender, no organomegaly, non distended Extremities: no cyanosis, no clubbing, no edema Laboratory Tests 03/12/19 03:50: White Blood Count 6.8, Red Blood Count 2.53L, Hemoglobin 8.3L, Hematocrit 25.7L , Mean Corpuscular Volume 101H, Mean Corpuscular Hemoglobin 32.7H, Mean Corpuscular Hemoglobin Concent 32.2, Red Cell Distribution Width 15.3H, Platelet Count 103L, Mean Platelet Volume 6.4L, Neutrophils (%) (Auto) 84.6H, Lymphocytes (%) (Auto) 7.0L, Monocytes (%) (Auto) 7.7, Eosinophils (%) (Auto) 0.1, Basophils (%) (Auto) 0.7, Sodium Level 138, Potassium Level 4.4, Chloride Level 98, Carbon Dioxide Level 24, Anion Gap 16H, Blood Urea Nitrogen 56H, Creatinine 6.2H, Estimat Glomerular Filtration Rate , Glucose Level 197H, Lactic Acid Level 1.40, Calcium Level 8.0L, Troponin I 1.809H, Pro-B-Type Natriuretic Peptide > 01092M Current Medications Medications (Trade) Dose Ordered Sig/Stephany Route PRN Reason Start Time Stop Time Status Last Admin Dose Admin Acetaminophen (Tylenol) 650 mg Q6H PRN ORAL Mild Pain/Temp > 100.5 03/09/19 07:01 04/07/19 07:00 03/10/19 03:10 Albuterol/ Ipratropium (Albuterol/ Ipratropium) 3 ml Q4HRT PRN HHN Shortness of Breath 03/11/19 22:30 03/16/19 22:29 03/12/19 15:45 Aspirin (ASA) 81 mg DAILY ORAL 03/09/19 09:00 04/07/19 08:59 03/11/19 09:39 Atorvastatin Calcium (Lipitor) 20 mg BEDTIME ORAL 03/09/19 21:00 04/07/19 20:59 03/10/19 20:42 Barium Sulfate (Varibar Honey) 250 ml NOW PRN MC RAD 03/11/19 12:00 03/14/19 11:58 Barium Sulfate (Varibar [place]) 240 ml NOW PRN MC RAD 03/11/19 12:00 03/14/19 11:58 Barium Sulfate (Varibar Pudding) 230 ml NOW PRN MC RAD 03/11/19 12:00 03/14/19 11:58 Carvedilol (Coreg) 3.125 mg EVERY 12 HOURS ORAL 03/10/19 21:00 04/09/19 20:59 03/11/19 09:36 Clonidine HCl (Catapres Tab) 0.1 mg Q8H PRN SL For High Blood Pressure 03/11/19 20:00 04/10/19 19:59 Dextrose 1,000 ml @ 30 mls/hr Q24H IV 03/09/19 14:07 04/08/19 14:06 03/12/19 10:45 Dextrose (Dextrose 50%) 25 ml Q30M PRN IV Hypoglycemia 03/09/19 07:00 04/07/19 06:59 Dextrose (Dextrose 50%) 50 ml Q30M PRN IV Hypoglycemia 03/09/19 07:00 04/07/19 06:59 Docusate Sodium (Colace) 100 mg TID ORAL 03/09/19 09:00 04/07/19 08:59 03/11/19 09:37 Ergocalciferol (Drisdol) 50,000 intlu ONCE A WEEK ORAL 03/15/19 18:00 04/07/19 17:59 Finasteride (Proscar) 5 mg DAILY ORAL 03/09/19 09:00 04/07/19 08:59 03/11/19 09:39 Fluticasone Propionate (Flonase) 2 spray DAILY NASAL 03/09/19 09:00 04/07/19 08:59 03/11/19 09:38 Guaifenesin/ Codeine Phosphate (Robitussin with codeine) 5 ml Q4H PRN ORAL For Cough 03/09/19 07:00 04/07/19 06:59 03/10/19 03:09 Hydralazine HCl (Apresoline) 25 mg Q4H PRN ORAL bp over 160 syst 03/09/19 07:03 04/07/19 07:02 03/10/19 03:09 Lisinopril (ZestriL) 10 mg DAILY ORAL 03/11/19 09:00 04/10/19 08:59 03/11/19 09:36 Lorazepam (Ativan 2mg/ml 1ml) 0.25 mg Q6H PRN IV For Anxiety 03/12/19 12:30 03/18/19 19:59 Lorazepam (Ativan) 1 mg Q6H PRN ORAL For Anxiety 03/12/19 12:28 03/19/19 12:27 Nitroglycerin (Ntg) 1 patch Q24H TDERMAL 03/09/19 14:30 04/08/19 14:29 03/12/19 15:01 Ondansetron HCl (Zofran) 4 mg Q4H PRN IVP Nausea & Vomiting 03/09/19 07:03 04/08/19 07:02 03/10/19 03:09 Pantoprazole (Protonix) 40 mg BID ORAL 03/09/19 09:00 04/07/19 06:59 03/11/19 09:36 Risperidone (RisperDAL) 1 mg BEDTIME ORAL 03/12/19 21:00 04/11/19 20:59 Sevelamer Carbonate (Renvela) 1,600 mg THREE TIMES A DAY ORAL 03/10/19 13:00 04/08/19 12:59 03/11/19 09:36 Tamsulosin HCl (Flomax) 0.4 mg BEDTIME ORAL 03/09/19 21:00 04/07/19 20:59 03/10/19 20:42 Thaddeus Cornelius MD Mar 12, 2019 19:37
--- NOTE | 2019-03-12 19:50 | NUR ---
RAPID RESPONSE: See Rapid Response sheet which remains on paper. 03/12/191946 pt noted to have excessive secretions in mouth, and secretions are noted audibly. pt vital signs are BP 123/6, HR 86, O2 87% resp 25. pt was then deep suctioned with excessive secretions noted in suction tube, with trace/ small blood tinged. 03/12/191948 pt became unresponsive post deep suctioning. 03/12/191949 Rapid response was summoned immediately for change in condition, aric BATISTA charge STONE SETTER. Uziel Miller RN, hasmukh STONE SETTER, Charmaine Ak SDU RN, Alonso SAEZ and NARESH espinosa super visor assisted rapid response. vital sign 03/12/191949 at start of Rapid response, vital signs are BP 125/65, HR 70, resp 27, O2 90% on 4 L nasal Cannula, temp 98.4F aux, Blood sugar finger stick 134. 03/12/2019 - 1951 STONE SETTER Hasmukh, senior data warehouse developer NARESH and LESTER primer charger JADU understood situation of Pt and stated to order stat ABGs and chest X ray, additionally established 18G IV R Forearm. 03/12/20191952 application technician hasmukh, RT ARIC, primer charger LESTER and naresh SIERRAsack department supervisor decided not to spare time and order BIPAP for change in condition. 03/12/20191954 BIPAP was placed. 03/12/20191957 pt became responsive. vital signs BP 130/69, HR 83, O2 sat 97% on BIPAP, resp 25. 03/12/20191999 rapid response team cleared/ stabilized pt until further MD notice. 03/12/20192000 RT ARIC obtained ABGs and will run result.
--- NOTE | 2019-03-12 19:53 | NUR ---
NURSE NOTES: ABGs resulted. will report ABGs to MD KNIGHT and MD SMITH. refer to 2019 ABGs for further details. ABGs result are post BIPAP placement. pt is stable. vital signs are stable.
--- NOTE | 2019-03-12 20:00 | NUR ---
NURSE NOTES: called MD LOVELACE to report change in condition (see rapid response note 03/12/19 for further details.) . orders is to call MD KNIGHT. will follow orders.
--- NOTE | 2019-03-12 20:13 | NUR ---
NURSE NOTES: Contacted MD KNIGHT [facility]. MD SMITH answered. STATED to report back with ABGs to MD ANTONIA GILMORE LINE. awaiting ABGs.
[2019-03-12] MEDS: Tamsulosin 0.4mg cap ORAL SCH (20:16)
[2019-03-12] MEDS: Atorvastatin 20mg tab ORAL SCH (20:16)
--- NOTE | 2019-03-12 20:44 | NUR ---
NURSE NOTES: Spoke with MD SUN. reported situation of PT (refer to RAPID RESPONSE NOTE 03/12/19) also reported ABGS of pt, (refer to ABG 03/12/19) understood PTs PO2 is too high from ABGs, ordered to titrate down FIO2 of BIPAP. however, pt is stable. vital signs stable. BIPAP is still on. Addendum: 03/12/19 at 2108 by KAYLA REILLY RN NURSE NOTES: Spoke with MD SUN. reported situation of PT (refer to RAPID RESPONSE NOTE 03/12/19) also reported ABGS of pt, (refer to ABG 03/12/19) understood PTs PO2 is too high from ABGs, ordered to titrate down FIO2 of BIPAP. however, pt is stable. vital signs stable. BIPAP is still on. MD sun understood the ABGs result are post BIPAP placement. will continue to monitor.
--- NOTE | 2019-03-12 20:50 | Diagnostic Imaging Report ---
Indication: Shortness of breath Technique: One view of the chest Comparison: 03/12/2019 Findings: There is extensive bilateral interstitial and airspace disease is again demonstrated, appearance unchanged. The pleural spaces are grossly clear. The heart is borderline enlarged. Impression: Unchanged, over 12 hours, findings as above. This essentially agrees with the preliminary interpretation provided overnight by [facility] teleradiology service.
--- NOTE | 2019-03-12 22:12 | General Progress Note ---
Assessment/Plan Assessment/Plan: aspiration risk NSTEMI renal failure diabeters persistent hypoglycemia ho pneumonia ho elevated lactic acid htn hld VSS eval noted , pos aspirate keep NPO scheduled for sunday eliquis held aspiration precutions\pulmonary hygiene echo noted, decreaed EF cards fup dw Dr Corcoran considering cath when off abx endo eval appreciated all diabetic meds held dialysis dependint check cultures abx per ID dw Dr Burk, on eliquis due to previous stroke paf dvt and ulcer prophylaxis Subjective Allergies: Coded Allergies: No Known Allergies (Unverified , 05/25/13) Subjective coughing Objective Last 24 Hour Vital Signs Date Time Temp Pulse Resp B/P (MAP) Pulse Ox O2 Delivery O2 Flow Rate FiO2 03/12/19 20:32 78 30 100 Facial 80 03/12/19 20:15 95 126/69 03/12/19 19:51 92 Nasal Cannula 3.0 32 03/12/19 19:51 96 20 92 Nasal Cannula 3.0 32 03/12/19 16:00 98.2 81 20 107/61 (76) 99 03/12/19 16:00 Nasal Cannula 4.0 03/12/19 15:45 63 26 90 Nasal Cannula 3.0 32 03/12/19 15:28 74 03/12/19 15:01 123/63 03/12/19 12:00 98.0 72 22 123/63 (83) 95 03/12/19 12:00 Nasal Cannula 4.0 03/12/19 11:30 66 03/12/19 09:00 102/54 03/12/19 09:00 62 102/54 03/12/19 08:00 97.8 62 22 102/54 (70) 97 03/12/19 08:00 Nasal Cannula 4.0 03/12/19 07:47 65 03/12/19 04:25 66 22 97 Nasal Cannula 3.0 32 03/12/19 04:15 65 22 95 Nasal Cannula 3.0 32 03/12/19 04:15 65 22 95 Nasal Cannula 3.0 32 03/12/19 04:14 95 Nasal Cannula 3.0 32 03/12/19 04:00 97.4 65 20 100/68 (79) 98 03/12/19 04:00 67 03/12/19 04:00 Nasal Cannula 2.0 03/12/19 00:00 97.1 73 20 113/74 (87) 95 03/12/19 00:00 Nasal Cannula 2.0 03/11/19 23:30 65 Intake and Output 03/11/19 03/12/19 19:00 07:00 Intake Total 390 ml 360 ml Balance 390 ml 360 ml Intake Oral 30 ml IV Total 360 ml 360 ml # Bowel Movements 4 Laboratory Tests 03/12/19 03:50: White Blood Count 6.8, Red Blood Count 2.53L, Hemoglobin 8.3L, Hematocrit 25.7L , Mean Corpuscular Volume 101H, Mean Corpuscular Hemoglobin 32.7H, Mean Corpuscular Hemoglobin Concent 32.2, Red Cell Distribution Width 15.3H, Platelet Count 103L, Mean Platelet Volume 6.4L, Neutrophils (%) (Auto) 84.6H, Lymphocytes (%) (Auto) 7.0L, Monocytes (%) (Auto) 7.7, Eosinophils (%) (Auto) 0.1, Basophils (%) (Auto) 0.7, Sodium Level 138, Potassium Level 4.4, Chloride Level 98, Carbon Dioxide Level 24, Anion Gap 16H, Blood Urea Nitrogen 56H, Creatinine 6.2H, Estimat Glomerular Filtration Rate , Glucose Level 197H, Lactic Acid Level 1.40, Calcium Level 8.0L, Troponin I 1.809H, Pro-B-Type Natriuretic Peptide > 30263R 03/12/19 19:53: Arterial Blood pH 7.396, Arterial Blood Partial Pressure CO2 45.7H, Arterial Blood Partial Pressure O2 371.1H, Arterial Blood HCO3 27.4H, Arterial Blood Oxygen Saturation 99.5, Arterial Blood Base Excess 2.2H, Wyatt Test Positive Height (Feet): 5 Height (Inches): 5.00 Weight (Pounds): 145 General Appearance: WD/WN, no apparent distress Neck: supple Cardiovascular: normal rate Abdomen: soft Viktor García MD Mar 12, 2019 22:12
[2019-03-13] VITALS: BP 106/68
[2019-03-13 04:00] VITALS: BP 120/55
[2019-03-13 05:47] LABS: HEMATOCRIT 24.4 % (42.0-52.0); HEMOGLOBIN 8.1 G/DL (14.2-18.0); MEAN CORPUSCULAR VOLUME 100 FL (80-99); PLATELET COUNT 104 K/UL (150-450); RED BLOOD COUNT 2.45 M/UL (4.70-6.10); RED CELL DISTRIBUTION WIDTH 15.4 % (11.6-14.8); WHITE BLOOD COUNT 5.1 K/UL (4.8-10.8)
[2019-03-13 06:05] LABS: ALANINE AMINOTRANSFERASE 48 U/L (12-78); ALBUMIN 2.8 G/DL (3.4-5.0); ALBUMIN/GLOBULIN RATIO 0.7 (1.0-2.7); ALKALINE PHOSPHATASE 202 U/L (46-116); ANION GAP 12 mmol/L (5-15); ASPARTATE AMINO TRANSFERASE 88 U/L (15-37); BILIRUBIN,TOTAL 0.8 MG/DL (0.2-1.0); BLOOD UREA NITROGEN 41 mg/dL (7-18); CALCIUM 8.4 MG/DL (8.5-10.1); CARBON DIOXIDE 31 MMOL/L (21-32); CHLORIDE 102 MMOL/L (98-107); CREATININE 5.2 MG/DL (0.55-1.30); PHOSPHORUS 5.9 MG/DL (2.5-4.9); POTASSIUM 3.8 MMOL/L (3.5-5.1); SODIUM 144 MMOL/L (136-145)
--- NOTE | 2019-03-13 06:19 | General Progress Note ---
Assessment/Plan Problem List: (1) Hypoglycemia ICD Codes: E16.2 - Hypoglycemia, unspecified SNOMED: 930682232 (2) Hemodialysis disequilibrium syndrome ICD Codes: E87.8 - Other disorders of electrolyte and fluid balance, not elsewhere classified SNOMED: 13429565 (3) NSTEMI (non-ST elevated myocardial infarction) ICD Codes: I21.4 - Non-ST elevation (NSTEMI) myocardial infarction SNOMED: 00635869 (4) ESRD (end stage renal disease) on dialysis ICD Codes: N18.6 - End stage renal disease; Z99.2 - Dependence on renal dialysis SNOMED: 575679883 (5) Diabetes ICD Codes: E11.9 - Type 2 diabetes mellitus without complications SNOMED: 54989509 (6) vascular dementia Assessment/Plan: glucose values are stable w/o hypoglycemia on low rate dextrose no need for diabetic medications continue to monitor glucose hypoglycemia protocol in order plan for PEG tomorrow noted Subjective ROS Limited/Unobtainable: Yes Allergies: Coded Allergies: No Known Allergies (Unverified , 05/25/13) Subjective events noted Item Value Date Time Bedside Blood Glucose 134 mg/dl H 03/12/19 2100 Bedside Blood Glucose 111 mg/dl 03/12/19 1646 Bedside Blood Glucose 120 mg/dl 03/12/19 1128 Bedside Blood Glucose 147 mg/dl H 03/12/19 0630 Objective Last 24 Hour Vital Signs Date Time Temp Pulse Resp B/P (MAP) Pulse Ox O2 Delivery O2 Flow Rate FiO2 03/13/19 04:38 74 30 95 Facial 35 03/13/19 04:00 99.4 69 26 120/55 (76) 99 03/13/19 04:00 Bi-pap 03/13/19 04:00 74 03/13/19 03:22 74 30 97 Facial 35 03/13/19 01:05 76 27 96 Facial 35 03/13/19 00:00 76 03/13/19 00:00 Bi-pap 03/13/19 00:00 99.1 73 21 106/68 (81) 99 03/12/19 22:55 78 30 100 Facial 80 03/12/19 20:32 78 30 100 Facial 80 03/12/19 20:15 95 126/69 03/12/19 20:00 72 03/12/19 20:00 98.4 72 20 109/64 (79) 98 1/15/20 20:00 Bi-pap 03/12/19 19:51 92 Nasal Cannula 3.0 32 03/12/19 19:51 96 20 92 Nasal Cannula 3.0 32 03/12/19 19:50 70 20 90 03/12/19 16:00 98.2 81 20 107/61 (76) 99 03/12/19 16:00 Nasal Cannula 4.0 03/12/19 15:45 63 26 90 Nasal Cannula 3.0 32 03/12/19 15:28 74 03/12/19 15:01 123/63 03/12/19 12:00 98.0 72 22 123/63 (83) 95 03/12/19 12:00 Nasal Cannula 4.0 03/12/19 11:30 66 03/12/19 09:00 102/54 03/12/19 09:00 62 102/54 03/12/19 08:00 97.8 62 22 102/54 (70) 97 03/12/19 08:00 Nasal Cannula 4.0 03/12/19 07:47 65 Intake and Output 03/12/19 03/13/19 19:00 07:00 Intake Total 2277.5 ml 270 ml Balance 2277.5 ml 270 ml IV Total 277.5 ml 270 ml Hemodialysis 2000 ml Laboratory Tests 03/12/19 19:53: Arterial Blood pH 7.396, Arterial Blood Partial Pressure CO2 45.7H, Arterial Blood Partial Pressure O2 371.1H, Arterial Blood HCO3 27.4H, Arterial Blood Oxygen Saturation 99.5, Arterial Blood Base Excess 2.2H, Wyatt Test Positive 03/13/19 03:05: White Blood Count 5.1, Red Blood Count 2.45L, Hemoglobin 8.1L, Hematocrit 24.4L , Mean Corpuscular Volume 100H, Mean Corpuscular Hemoglobin 33.0H, Mean Corpuscular Hemoglobin Concent 33.2, Red Cell Distribution Width 15.4H, Platelet Count 104L, Mean Platelet Volume 7.8, Neutrophils (%) (Auto) , Lymphocytes (%) (Auto) , Monocytes (%) (Auto) , Eosinophils (%) (Auto) , Basophils (%) (Auto) , Sodium Level 144, Potassium Level 3.8, Chloride Level 102 , Carbon Dioxide Level 31, Anion Gap 12, Blood Urea Nitrogen 41H, Creatinine 5.2H, Estimat Glomerular Filtration Rate , Glucose Level 88#, Uric Acid 5.4, Calcium Level 8.4L, Phosphorus Level 5.9H, Magnesium Level 2.3, Total Bilirubin 0.8, Aspartate Amino Transf (AST/SGOT) 88H, Alanine Aminotransferase (ALT/SGPT) 48, Alkaline Phosphatase 202H, C-Reactive Protein, Quantitative [Pending], Pro-B -Type Natriuretic Peptide > 57596B, Total Protein 6.9, Albumin 2.8L, Globulin 4.1, Albumin/Globulin Ratio 0.7L Height (Feet): 5 Height (Inches): 5.00 Weight (Pounds): 141 General Appearance: no apparent distress Neck: normal alignment Cardiovascular: normal rate Respiratory/Chest: decreased breath sounds Abdomen: normal bowel sounds Objective Current Medications Medications (Trade) Dose Ordered Sig/Stephany Route PRN Reason Start Time Stop Time Status Last Admin Dose Admin Acetaminophen (Tylenol) 650 mg Q6H PRN ORAL Mild Pain/Temp > 100.5 03/09/19 07:01 04/07/19 07:00 03/10/19 03:10 Albuterol/ Ipratropium (Albuterol/ Ipratropium) 3 ml Q4HRT PRN HHN Shortness of Breath 03/11/19 22:30 03/16/19 22:29 03/12/19 15:45 Aspirin (ASA) 81 mg DAILY ORAL 03/09/19 09:00 04/07/19 08:59 03/11/19 09:39 Atorvastatin Calcium (Lipitor) 20 mg BEDTIME ORAL 03/09/19 21:00 04/07/19 20:59 03/10/19 20:42 Barium Sulfate (Varibar Honey) 250 ml NOW PRN MC RAD 03/11/19 12:00 03/14/19 11:58 Barium Sulfate (Varibar [place]) 240 ml NOW PRN MC RAD 03/11/19 12:00 03/14/19 11:58 Barium Sulfate (Varibar Pudding) 230 ml NOW PRN MC RAD 03/11/19 12:00 03/14/19 11:58 Carvedilol (Coreg) 3.125 mg EVERY 12 HOURS ORAL 03/10/19 21:00 04/09/19 20:59 03/11/19 09:36 Clonidine HCl (Catapres Tab) 0.1 mg Q8H PRN SL For High Blood Pressure 03/11/19 20:00 04/10/19 19:59 Dextrose 1,000 ml @ 30 mls/hr Q24H IV 03/09/19 14:07 04/08/19 14:06 03/12/19 10:45 Dextrose (Dextrose 50%) 25 ml Q30M PRN IV Hypoglycemia 03/09/19 07:00 04/07/19 06:59 Dextrose (Dextrose 50%) 50 ml Q30M PRN IV Hypoglycemia 03/09/19 07:00 04/07/19 06:59 Docusate Sodium (Colace) 100 mg TID ORAL 03/09/19 09:00 04/07/19 08:59 03/11/19 09:37 Ergocalciferol (Drisdol) 50,000 intlu ONCE A WEEK ORAL 03/15/19 18:00 04/07/19 17:59 Finasteride (Proscar) 5 mg DAILY ORAL 03/09/19 09:00 04/07/19 08:59 03/11/19 09:39 Fluticasone Propionate (Flonase) 2 spray DAILY NASAL 03/09/19 09:00 04/07/19 08:59 03/11/19 09:38 Guaifenesin/ Codeine Phosphate (Robitussin with codeine) 5 ml Q4H PRN ORAL For Cough 03/09/19 07:00 04/07/19 06:59 03/10/19 03:09 Hydralazine HCl (Apresoline) 25 mg Q4H PRN ORAL bp over 160 syst 03/09/19 07:03 04/07/19 07:02 03/10/19 03:09 Lisinopril (ZestriL) 10 mg DAILY ORAL 03/11/19 09:00 04/10/19 08:59 03/11/19 09:36 Lorazepam (Ativan 2mg/ml 1ml) 0.25 mg Q6H PRN IV For Anxiety 03/12/19 12:30 03/18/19 19:59 Lorazepam (Ativan) 1 mg Q6H PRN ORAL For Anxiety 03/12/19 12:28 03/19/19 12:27 Nitroglycerin (Ntg) 1 patch Q24H TDERMAL 03/09/19 14:30 04/08/19 14:29 03/12/19 15:01 Ondansetron HCl (Zofran) 4 mg Q4H PRN IVP Nausea & Vomiting 03/09/19 07:03 04/08/19 07:02 03/10/19 03:09 Pantoprazole (Protonix) 40 mg BID ORAL 03/09/19 09:00 04/07/19 06:59 03/11/19 09:36 Risperidone (RisperDAL) 1 mg BEDTIME ORAL 03/12/19 21:00 04/11/19 20:59 Sevelamer Carbonate (Renvela) 1,600 mg THREE TIMES A DAY ORAL 03/10/19 13:00 04/08/19 12:59 03/11/19 09:36 Tamsulosin HCl (Flomax) 0.4 mg BEDTIME ORAL 03/09/19 21:00 04/07/19 20:59 03/10/19 20:42 Shawn Saldana MD Mar 13, 2019 06:19
--- NOTE | 2019-03-13 07:29 | NUR ---
HAND-OFF: Report given to LESLY SIERRA. PT REMAINS STABLE.
--- NOTE | 2019-03-13 07:30 | NUR ---
NURSE NOTES: Report received from Uziel Michelle RN.Pt awake,in bed restless confused with bilat wrist restraints in placed,noted no resp distress ,on Bipap 15/8 Fio2 35%,no signsof pain or discomfort.SR on the monitor,skin warm and dry,RUE edmatous,IV sites to RFA and RH intact with IV running D10 at 30 ml/hr ,Pt anuric,HD pt with to LEXIS shunt intact,SR up x2 HOB elevated ,bed lock in lowest position,will continue with plans of care.
[2019-03-13 08:00] VITALS: BP 112/52
--- NOTE | 2019-03-13 08:30 | NUR ---
NURSE NOTES: Dr Webber at bedside,will not do EGD with PEG since PT is with Bipap,will continue to NPO status,pt failed the Swallow eval.All due medic will be on hold.
[2019-03-13] MEDS: Lisinopril 10mg tab ORAL SCH (09:00)
[2019-03-13] MEDS: Flonase Nasal Inhaler 16gm NASAL SCH (09:00)
[2019-03-13] MEDS: Aspirin Baby 81mg ORAL SCH (09:00)
[2019-03-13] MEDS: Docusate 100mg cap ORAL SCH ×3 (09:00→18:00)
--- NOTE | 2019-03-13 10:29 | Infectious Diseases Prog Note ---
Assessment/Plan Assessment/Plan IMPRESSION: 1. Leukocytosis, resolved 2. Lactic acidosis. 3.Doubt sepsis 4. Hmn-BV-ngoafnxpn CA. 5. End-stage renal disease, on hemodialysis. 6. Diabetes mellitus, type 2. 7. Hypertension. 8. BPH. 9. Systolic CHF with ejection fraction of 40%. 10. Dysphagia 11. Hypoxemia 12. Pulmonary edema versus pneumonia RECOMMENDATIONS: Sputum culture Start on Cefepime Will have PEG placement Subjective ROS Limited/Unobtainable: Yes Respiratory: Reports: other - developed desaturation last night started on BIPAP Neurologic: Reports: confusion, other - on restraint Allergies: Coded Allergies: No Known Allergies (Unverified , 05/25/13) Objective Vital Signs Last 24 Hour Vital Signs Date Time Temp Pulse Resp B/P (MAP) Pulse Ox O2 Delivery O2 Flow Rate FiO2 03/13/19 09:29 71 27 98 Facial 35 03/13/19 09:00 112/52 03/13/19 09:00 71 112/52 03/13/19 08:00 71 03/13/19 08:00 98.4 72 16 112/52 (72) 100 03/13/19 08:00 Bi-pap 03/13/19 07:17 72 19 99 Facial 35 03/13/19 07:17 97 Bi-Pap 35 03/13/19 07:15 73 24 98 Bi-Pap 35 03/13/19 04:38 74 30 95 Facial 35 03/13/19 04:00 99.4 69 26 120/55 (76) 99 03/13/19 04:00 Bi-pap 03/13/19 04:00 74 03/13/19 03:22 74 30 97 Facial 35 03/13/19 01:05 76 27 96 Facial 35 03/13/19 00:00 76 03/13/19 00:00 Bi-pap 03/13/19 00:00 99.1 73 21 106/68 (81) 99 03/12/19 22:55 78 30 100 Facial 80 03/12/19 20:32 78 30 100 Facial 80 03/12/19 20:15 95 126/69 03/12/19 20:00 72 03/12/19 20:00 98.4 72 20 109/64 (79) 98 03/12/19 20:00 Bi-pap 03/12/19 19:51 92 Nasal Cannula 3.0 32 03/12/19 19:51 96 20 92 Nasal Cannula 3.0 32 03/12/19 19:50 70 20 90 03/12/19 16:00 98.2 81 20 107/61 (76) 99 03/12/19 16:00 Nasal Cannula 4.0 03/12/19 15:45 63 26 90 Nasal Cannula 3.0 32 03/12/19 15:28 74 03/12/19 15:01 123/63 03/12/19 12:00 98.0 72 22 123/63 (83) 95 03/12/19 12:00 Nasal Cannula 4.0 03/12/19 11:30 66 Height (Feet): 5 Height (Inches): 5.00 Weight (Pounds): 141 HEENT: mucous membranes moist Respiratory/Chest: decreased breath sounds, other - on BIPAP Cardiovascular: normal rate Abdomen: soft, non tender Extremities: other - edema of R arm Neurologic/Psychiatric: alert, responsive, disoriented Laboratory Tests Test 03/12/19 19:53 03/13/19 03:05 Arterial Blood pH 7.396 (7.350-7.450) Arterial Blood Partial Pressure CO2 45.7 mmHg (35.0-45.0) H Arterial Blood Partial Pressure O2 371.1 mmHg (75.0-100.0) H Arterial Blood HCO3 27.4 mmol/L (22.0-26.0) H Arterial Blood Oxygen Saturation 99.5 % (95-100) Arterial Blood Base Excess 2.2 (-2-2) H Wyatt Test Positive White Blood Count 5.1 K/UL (4.8-10.8) Red Blood Count 2.45 M/UL (4.70-6.10) L Hemoglobin 8.1 G/DL (14.2-18.0) L Hematocrit 24.4 % (42.0-52.0) L Mean Corpuscular Volume 100 FL (80-99) H Mean Corpuscular Hemoglobin 33.0 PG (27.0-31.0) H Mean Corpuscular Hemoglobin Concent 33.2 G/DL (32.0-36.0) Red Cell Distribution Width 15.4 % (11.6-14.8) H Platelet Count 104 K/UL (150-450) L Mean Platelet Volume 7.8 FL (6.5-10.1) Neutrophils (%) (Auto) % (45.0-75.0) Lymphocytes (%) (Auto) % (20.0-45.0) Monocytes (%) (Auto) % (1.0-10.0) Eosinophils (%) (Auto) % (0.0-3.0) Basophils (%) (Auto) % (0.0-2.0) Sodium Level 144 MMOL/L (136-145) Potassium Level 3.8 MMOL/L (3.5-5.1) Chloride Level 102 MMOL/L (98-107) Carbon Dioxide Level 31 MMOL/L (21-32) Anion Gap 12 mmol/L (5-15) Blood Urea Nitrogen 41 mg/dL (7-18) H Creatinine 5.2 MG/DL (0.55-1.30) H Estimat Glomerular Filtration Rate mL/min (>60) Glucose Level 88 MG/DL (74-106) # Uric Acid 5.4 MG/DL (2.6-7.2) Calcium Level 8.4 MG/DL (8.5-10.1) L Phosphorus Level 5.9 MG/DL (2.5-4.9) H Magnesium Level 2.3 MG/DL (1.8-2.4) Total Bilirubin 0.8 MG/DL (0.2-1.0) Aspartate Amino Transf (AST/SGOT) 88 U/L (15-37) H Alanine Aminotransferase (ALT/SGPT) 48 U/L (12-78) Alkaline Phosphatase 202 U/L (46-116) H C-Reactive Protein, Quantitative 29.7 mg/dL (0.00-0.90) H Pro-B-Type Natriuretic Peptide > 44268 pg/mL (0-125) H Total Protein 6.9 G/DL (6.4-8.2) Albumin 2.8 G/DL (3.4-5.0) L Globulin 4.1 g/dL Albumin/Globulin Ratio 0.7 (1.0-2.7) L Current Medications Medications (Trade) Dose Ordered Sig/Stephany Route PRN Reason Start Time Stop Time Status Last Admin Dose Admin Acetaminophen (Tylenol) 650 mg Q6H PRN ORAL Mild Pain/Temp > 100.5 03/09/19 07:01 04/07/19 07:00 03/10/19 03:10 Albuterol/ Ipratropium (Albuterol/ Ipratropium) 3 ml Q4HRT PRN HHN Shortness of Breath 03/11/19 22:30 03/16/19 22:29 03/12/19 15:45 Aspirin (ASA) 81 mg DAILY ORAL 03/09/19 09:00 04/07/19 08:59 03/11/19 09:39 Atorvastatin Calcium (Lipitor) 20 mg BEDTIME ORAL 03/09/19 21:00 04/07/19 20:59 03/10/19 20:42 Barium Sulfate (Varibar Honey) 250 ml NOW PRN MC RAD 03/11/19 12:00 03/14/19 11:58 Barium Sulfate (Varibar [place]) 240 ml NOW PRN MC RAD 03/11/19 12:00 03/14/19 11:58 Barium Sulfate (Varibar Pudding) 230 ml NOW PRN MC RAD 03/11/19 12:00 03/14/19 11:58 Carvedilol (Coreg) 3.125 mg EVERY 12 HOURS ORAL 03/10/19 21:00 04/09/19 20:59 03/11/19 09:36 Clonidine HCl (Catapres Tab) 0.1 mg Q8H PRN SL For High Blood Pressure 03/11/19 20:00 04/10/19 19:59 Dextrose 1,000 ml @ 30 mls/hr Q24H IV 03/09/19 14:07 04/08/19 14:06 03/12/19 10:45 Dextrose (Dextrose 50%) 25 ml Q30M PRN IV Hypoglycemia 03/09/19 07:00 04/07/19 06:59 Dextrose (Dextrose 50%) 50 ml Q30M PRN IV Hypoglycemia 03/09/19 07:00 04/07/19 06:59 Docusate Sodium (Colace) 100 mg TID ORAL 03/09/19 09:00 04/07/19 08:59 03/11/19 09:37 Ergocalciferol (Drisdol) 50,000 intlu ONCE A WEEK ORAL 03/15/19 18:00 04/07/19 17:59 Finasteride (Proscar) 5 mg DAILY ORAL 03/09/19 09:00 04/07/19 08:59 03/11/19 09:39 Fluticasone Propionate (Flonase) 2 spray DAILY NASAL 03/09/19 09:00 04/07/19 08:59 03/11/19 09:38 Guaifenesin/ Codeine Phosphate (Robitussin with codeine) 5 ml Q4H PRN ORAL For Cough 03/09/19 07:00 04/07/19 06:59 03/10/19 03:09 Hydralazine HCl (Apresoline) 25 mg Q4H PRN ORAL bp over 160 syst 03/09/19 07:03 04/07/19 07:02 03/10/19 03:09 Lisinopril (ZestriL) 10 mg DAILY ORAL 03/11/19 09:00 04/10/19 08:59 03/11/19 09:36 Lorazepam (Ativan 2mg/ml 1ml) 0.25 mg Q6H PRN IV For Anxiety 03/12/19 12:30 03/18/19 19:59 Lorazepam (Ativan) 1 mg Q6H PRN ORAL For Anxiety 03/12/19 12:28 03/19/19 12:27 Nitroglycerin (Ntg) 1 patch Q24H TDERMAL 03/09/19 14:30 04/08/19 14:29 03/12/19 15:01 Ondansetron HCl (Zofran) 4 mg Q4H PRN IVP Nausea & Vomiting 03/09/19 07:03 04/08/19 07:02 03/10/19 03:09 Pantoprazole (Protonix) 40 mg BID ORAL 03/09/19 09:00 04/07/19 06:59 03/11/19 09:36 Risperidone (RisperDAL) 1 mg BEDTIME ORAL 03/12/19 21:00 04/11/19 20:59 Sevelamer Carbonate (Renvela) 1,600 mg THREE TIMES A DAY ORAL 03/10/19 13:00 04/08/19 12:59 03/11/19 09:36 Tamsulosin HCl (Flomax) 0.4 mg BEDTIME ORAL 03/09/19 21:00 04/07/19 20:59 03/10/19 20:42 Boyd Tee MD Mar 13, 2019 10:29
--- NOTE | 2019-03-13 10:57 | NUR ---
ST NOTES: SWALLOW STATUS: PATIENT IS BACK ON BIPAP AND CANNOT HAVE PEG PLACED AT THIS TIME. NPO FOR NOW. PLAN: F/UP AFTER PEG PLACED AND OFF BIPAP CONTINUE WITH ORAL CARE/SUCTION PRN STAFF AWARE
[2019-03-13 12:00] VITALS: BP 122/71
--- NOTE | 2019-03-13 13:30 | Geriatric Medicine Prog Note ---
DATE: 03/11/2019 SUBJECTIVE: The patient's hypoglycemia resolved on D10W 30 mL per hour. O/E VS Stable RESP:Clear,CVS-Regular INV:. Glucose 162. ASSESSMENT: 1. Hypoglycemia, resolved. 2. Severe malnutrition. PLANS:D10 30 cc/hr GLevemir 10u sc Q12hrs. Tay Bloom M.D. DR: ASHLEY JOB#: [id number] CC: [facility]
[2019-03-13] MEDS: Nitroglycerin Patch 0.4mg TDERMAL SCH (14:30)
--- NOTE | 2019-03-13 15:00 | NUR ---
NURSE NOTES: Dr Corcoran at bedside,updated re pt's status.
--- NOTE | 2019-03-13 15:38 | Cardiac Electrophysiology PN ---
Assessment/Plan Assessment/Plan 1. Troponin elevation, could be due to renal failure. Troponin peak is however at 3.5 that is coming down to 1.88. Confused in restraints. No CP or SOB. EKG no acute changes. EF 40-45% On aspirin, Coreg 3.125 bid and Lipitor. Will treat medically at this time 2. Cardiomyopathy with EF of 40%. BNP is more than 35,000. Echo on 02/02/2019 showed EF of 55% to 60%, however repeat echocardiogram showed EF 40%. On Coreg, Lisinopril 10 daily and HD 3. On Eliquis for CVA and PVD. No Fib or DVT or PE 4. End-stage renal disease, on hemodialysis. 5. Lactic acidosis. 6. Hyperlipidemia, on Lipitor. 7. Dysphagia. Plan for EGD/PEG Sunday if off BIPAP by then 8. Respiratory failure on BIPAP DW RN Subjective Subjective Troponin levels coming down. Had HD 2500 cc out yesterday. PEG rescheduled tomorrow again if comes off BIPAP Objective Last 24 Hour Vital Signs Date Time Temp Pulse Resp B/P (MAP) Pulse Ox O2 Delivery O2 Flow Rate FiO2 03/13/19 12:47 77 39 100 Facial 35 03/13/19 12:00 98.3 69 16 122/71 (88) 94 03/13/19 12:00 Bi-pap 03/13/19 12:00 70 03/13/19 11:30 68 30 98 Facial 35 03/13/19 09:29 71 27 98 Facial 35 03/13/19 09:00 112/52 03/13/19 09:00 71 112/52 03/13/19 08:00 71 03/13/19 08:00 98.4 72 16 112/52 (72) 100 03/13/19 08:00 Bi-pap 03/13/19 07:17 72 19 99 Facial 35 03/13/19 07:17 97 Bi-Pap 35 03/13/19 07:15 73 24 98 Bi-Pap 35 03/13/19 04:38 74 30 95 Facial 35 03/13/19 04:00 99.4 69 26 120/55 (76) 99 03/13/19 04:00 Bi-pap 03/13/19 04:00 74 03/13/19 03:22 74 30 97 Facial 35 03/13/19 01:05 76 27 96 Facial 35 03/13/19 00:00 76 03/13/19 00:00 Bi-pap 03/13/19 00:00 99.1 73 21 106/68 (81) 99 03/12/19 22:55 78 30 100 Facial 80 03/12/19 20:32 78 30 100 Facial 80 03/12/19 20:15 95 126/69 03/12/19 20:00 72 03/12/19 20:00 98.4 72 20 109/64 (79) 98 03/12/19 20:00 Bi-pap 03/12/19 19:51 92 Nasal Cannula 3.0 32 03/12/19 19:51 96 20 92 Nasal Cannula 3.0 32 03/12/19 19:50 70 20 90 03/12/19 16:00 98.2 81 20 107/61 (76) 99 03/12/19 16:00 Nasal Cannula 4.0 03/12/19 15:45 63 26 90 Nasal Cannula 3.0 32 Intake and Output 03/12/19 03/13/19 19:00 07:00 Intake Total 2277.5 ml 270 ml Balance 2277.5 ml 270 ml IV Total 277.5 ml 270 ml Hemodialysis 2000 ml Laboratory Tests Test 03/12/19 19:53 03/13/19 03:05 Arterial Blood pH 7.396 (7.350-7.450) Arterial Blood Partial Pressure CO2 45.7 mmHg (35.0-45.0) H Arterial Blood Partial Pressure O2 371.1 mmHg (75.0-100.0) H Arterial Blood HCO3 27.4 mmol/L (22.0-26.0) H Arterial Blood Oxygen Saturation 99.5 % (95-100) Arterial Blood Base Excess 2.2 (-2-2) H Wyatt Test Positive White Blood Count 5.1 K/UL (4.8-10.8) Red Blood Count 2.45 M/UL (4.70-6.10) L Hemoglobin 8.1 G/DL (14.2-18.0) L Hematocrit 24.4 % (42.0-52.0) L Mean Corpuscular Volume 100 FL (80-99) H Mean Corpuscular Hemoglobin 33.0 PG (27.0-31.0) H Mean Corpuscular Hemoglobin Concent 33.2 G/DL (32.0-36.0) Red Cell Distribution Width 15.4 % (11.6-14.8) H Platelet Count 104 K/UL (150-450) L Mean Platelet Volume 7.8 FL (6.5-10.1) Neutrophils (%) (Auto) % (45.0-75.0) Lymphocytes (%) (Auto) % (20.0-45.0) Monocytes (%) (Auto) % (1.0-10.0) Eosinophils (%) (Auto) % (0.0-3.0) Basophils (%) (Auto) % (0.0-2.0) Sodium Level 144 MMOL/L (136-145) Potassium Level 3.8 MMOL/L (3.5-5.1) Chloride Level 102 MMOL/L (98-107) Carbon Dioxide Level 31 MMOL/L (21-32) Anion Gap 12 mmol/L (5-15) Blood Urea Nitrogen 41 mg/dL (7-18) H Creatinine 5.2 MG/DL (0.55-1.30) H Estimat Glomerular Filtration Rate mL/min (>60) Glucose Level 88 MG/DL (74-106) # Uric Acid 5.4 MG/DL (2.6-7.2) Calcium Level 8.4 MG/DL (8.5-10.1) L Phosphorus Level 5.9 MG/DL (2.5-4.9) H Magnesium Level 2.3 MG/DL (1.8-2.4) Total Bilirubin 0.8 MG/DL (0.2-1.0) Aspartate Amino Transf (AST/SGOT) 88 U/L (15-37) H Alanine Aminotransferase (ALT/SGPT) 48 U/L (12-78) Alkaline Phosphatase 202 U/L (46-116) H C-Reactive Protein, Quantitative 29.7 mg/dL (0.00-0.90) H Pro-B-Type Natriuretic Peptide > 89351 pg/mL (0-125) H Total Protein 6.9 G/DL (6.4-8.2) Albumin 2.8 G/DL (3.4-5.0) L Globulin 4.1 g/dL Albumin/Globulin Ratio 0.7 (1.0-2.7) L Objective HEAD AND NECK: No JVD. LUNGS: Clear. CARDIOVASCULAR: Regular S1 and S2 with no gallop or murmur. ABDOMEN: Soft. EXTREMITIES: No pitting edema. Dialysis access in the left arm. Dariel Corcoran MD Mar 13, 2019 15:38
--- NOTE | 2019-03-13 15:43 | Nephrology Progress Note ---
Assessment/Plan Problem List: (1) ESRD (end stage renal disease) on dialysis (2) Cardiomyopathy (3) NSTEMI (non-ST elevated myocardial infarction) Assessment: Troponin lowering (4) Acute respiratory failure with hypoxia and hypercapnia Assessment ESRD- HTN Anemia DM CAD- Cardiomyopathy s/p SEPSIS DE Plan recent 2D echo 40% EjFx Pulm Toilet and support HD next 03/14 Keep BP in check - Hold bp meds for now due to low BP Albumin bolus ASA Nitrate per consultants per orders Subjective ROS Limited/Unobtainable: Yes Constitutional: Reports: malaise Objective Objective Last 24 Hour Vital Signs Date Time Temp Pulse Resp B/P (MAP) Pulse Ox O2 Delivery O2 Flow Rate FiO2 03/13/19 12:47 77 39 100 Facial 35 03/13/19 12:00 98.3 69 16 122/71 (88) 94 03/13/19 12:00 Bi-pap 03/13/19 12:00 70 03/13/19 11:30 68 30 98 Facial 35 03/13/19 09:29 71 27 98 Facial 35 03/13/19 09:00 112/52 03/13/19 09:00 71 112/52 03/13/19 08:00 71 03/13/19 08:00 98.4 72 16 112/52 (72) 100 03/13/19 08:00 Bi-pap 03/13/19 07:17 72 19 99 Facial 35 03/13/19 07:17 97 Bi-Pap 35 03/13/19 07:15 73 24 98 Bi-Pap 35 03/13/19 04:38 74 30 95 Facial 35 03/13/19 04:00 99.4 69 26 120/55 (76) 99 03/13/19 04:00 Bi-pap 03/13/19 04:00 74 03/13/19 03:22 74 30 97 Facial 35 03/13/19 01:05 76 27 96 Facial 35 03/13/19 00:00 76 03/13/19 00:00 Bi-pap 03/13/19 00:00 99.1 73 21 106/68 (81) 99 03/12/19 22:55 78 30 100 Facial 80 03/12/19 20:32 78 30 100 Facial 80 03/12/19 20:15 95 126/69 03/12/19 20:00 72 03/12/19 20:00 98.4 72 20 109/64 (79) 98 03/12/19 20:00 Bi-pap 03/12/19 19:51 92 Nasal Cannula 3.0 32 03/12/19 19:51 96 20 92 Nasal Cannula 3.0 32 03/12/19 19:50 70 20 90 03/12/19 16:00 98.2 81 20 107/61 (76) 99 03/12/19 16:00 Nasal Cannula 4.0 03/12/19 15:45 63 26 90 Nasal Cannula 3.0 32 Intake and Output 03/12/19 03/13/19 19:00 07:00 Intake Total 2277.5 ml 270 ml Balance 2277.5 ml 270 ml IV Total 277.5 ml 270 ml Hemodialysis 2000 ml Laboratory Tests 03/12/19 19:53: Arterial Blood pH 7.396, Arterial Blood Partial Pressure CO2 45.7H, Arterial Blood Partial Pressure O2 371.1H, Arterial Blood HCO3 27.4H, Arterial Blood Oxygen Saturation 99.5, Arterial Blood Base Excess 2.2H, Wyatt Test Positive 03/13/19 03:05: White Blood Count 5.1, Red Blood Count 2.45L, Hemoglobin 8.1L, Hematocrit 24.4L , Mean Corpuscular Volume 100H, Mean Corpuscular Hemoglobin 33.0H, Mean Corpuscular Hemoglobin Concent 33.2, Red Cell Distribution Width 15.4H, Platelet Count 104L, Mean Platelet Volume 7.8, Neutrophils (%) (Auto) , Lymphocytes (%) (Auto) , Monocytes (%) (Auto) , Eosinophils (%) (Auto) , Basophils (%) (Auto) , Sodium Level 144, Potassium Level 3.8, Chloride Level 102 , Carbon Dioxide Level 31, Anion Gap 12, Blood Urea Nitrogen 41H, Creatinine 5.2H, Estimat Glomerular Filtration Rate , Glucose Level 88#, Uric Acid 5.4, Calcium Level 8.4L, Phosphorus Level 5.9H, Magnesium Level 2.3, Total Bilirubin 0.8, Aspartate Amino Transf (AST/SGOT) 88H, Alanine Aminotransferase (ALT/SGPT) 48, Alkaline Phosphatase 202H, C-Reactive Protein, Quantitative 29.7H, Pro-B- Type Natriuretic Peptide > 34507W, Total Protein 6.9, Albumin 2.8L, Globulin 4.1 , Albumin/Globulin Ratio 0.7L Height (Feet): 5 Height (Inches): 5.00 Weight (Pounds): 141 General Appearance: mild distress EENT: other Cardiovascular: normal rate Respiratory/Chest: decreased breath sounds Abdomen: distended Objective no change Mikey Brandt MD Mar 13, 2019 15:43
[2019-03-13 16:00] VITALS: BP 119/60
--- NOTE | 2019-03-13 19:10 | NUR ---
NURSE NOTES: Pt report received from [facility]. Pt remain stable. pt vital signs stable. pt is on BIPAP, satting at 100%, no resp distress noted. pt is on panel monitor showing NSR, no cardiac distress noted. pt bed is low, locked, armed, bed rails up times 3, call light within easy reach. will follow plan of care. family member at bed side, pt remains stable.
--- NOTE | 2019-03-13 19:25 | NUR ---
HAND-OFF: Report given Gabriel Michelle RN .
[2019-03-13] MEDS: Dextrose 10% 1,000 ML IV SCH (19:28)
[2019-03-13] MEDS: Cefepime HCl 1 GM in D5W 55 ML IVPB SCH (19:28)
[2019-03-13 20:00] VITALS: BP 120/74
[2019-03-13] MEDS: Atorvastatin 20mg tab ORAL SCH (21:00)
[2019-03-13] MEDS: Tamsulosin 0.4mg cap ORAL SCH (21:00)
--- NOTE | 2019-03-13 22:20 | General Progress Note ---
Assessment/Plan Assessment/Plan: respiratory failure aspiration risk NSTEMI renal failure diabeters persistent hypoglycemia ho pneumonia ho elevated lactic acid htn hld on bipap pulmonaryhygiene, followed by Dr Adryan nichole noted , pos aspirate keep NPO GT may need to be defered due to current respiratory condition dw Dr Melgoza, family to decide eliquis held aspiration precutions\pulmonary hygiene echo noted, decreaed EF cards fup dw Dr Corcoran considering cath when off abx endo eval appreciated all diabetic meds held dialysis dependint check cultures abx per ID dw Dr Burk, on eliquis due to previous stroke paf dvt and ulcer prophylaxis Subjective Allergies: Coded Allergies: No Known Allergies (Unverified , 05/25/13) Subjective events noted increaed sob yesterday requring bipap Objective Last 24 Hour Vital Signs Date Time Temp Pulse Resp B/P (MAP) Pulse Ox O2 Delivery O2 Flow Rate FiO2 03/13/19 21:19 74 26 97 Facial 35 03/13/19 21:00 95 116/73 03/13/19 19:18 68 24 99 Bi-Pap 35 03/13/19 19:18 99 Bi-Pap 35 03/13/19 19:17 68 31 99 Facial 35 03/13/19 17:01 67 39 97 Facial 35 03/13/19 16:00 Bi-pap 03/13/19 16:00 69 03/13/19 16:00 98.1 67 16 119/60 (79) 94 03/13/19 15:42 68 24 100 Facial 35 03/13/19 14:30 119/60 03/13/19 12:47 77 39 100 Facial 35 03/13/19 12:00 98.3 69 16 122/71 (88) 94 03/13/19 12:00 Bi-pap 03/13/19 12:00 70 03/13/19 11:30 68 30 98 Facial 35 03/13/19 09:29 71 27 98 Facial 35 03/13/19 09:00 112/52 03/13/19 09:00 71 112/52 03/13/19 08:00 71 03/13/19 08:00 98.4 72 16 112/52 (72) 100 03/13/19 08:00 Bi-pap 03/13/19 07:17 72 19 99 Facial 35 03/13/19 07:17 97 Bi-Pap 35 03/13/19 07:15 73 24 98 Bi-Pap 35 03/13/19 04:38 74 30 95 Facial 35 03/13/19 04:00 99.4 69 26 120/55 (76) 99 03/13/19 04:00 Bi-pap 03/13/19 04:00 74 03/13/19 03:22 74 30 97 Facial 35 03/13/19 01:05 76 27 96 Facial 35 03/13/19 00:00 76 03/13/19 00:00 Bi-pap 03/13/19 00:00 99.1 73 21 106/68 (81) 99 03/12/19 22:55 78 30 100 Facial 80 Intake and Output 03/12/19 03/13/19 19:00 07:00 Intake Total 2277.5 ml 270 ml Balance 2277.5 ml 270 ml IV Total 277.5 ml 270 ml Hemodialysis 2000 ml Laboratory Tests 03/13/19 03:05: White Blood Count 5.1, Red Blood Count 2.45L, Hemoglobin 8.1L, Hematocrit 24.4L , Mean Corpuscular Volume 100H, Mean Corpuscular Hemoglobin 33.0H, Mean Corpuscular Hemoglobin Concent 33.2, Red Cell Distribution Width 15.4H, Platelet Count 104L, Mean Platelet Volume 7.8, Neutrophils (%) (Auto) , Lymphocytes (%) (Auto) , Monocytes (%) (Auto) , Eosinophils (%) (Auto) , Basophils (%) (Auto) , Sodium Level 144, Potassium Level 3.8, Chloride Level 102 , Carbon Dioxide Level 31, Anion Gap 12, Blood Urea Nitrogen 41H, Creatinine 5.2H, Estimat Glomerular Filtration Rate , Glucose Level 88#, Uric Acid 5.4, Calcium Level 8.4L, Phosphorus Level 5.9H, Magnesium Level 2.3, Total Bilirubin 0.8, Aspartate Amino Transf (AST/SGOT) 88H, Alanine Aminotransferase (ALT/SGPT) 48, Alkaline Phosphatase 202H, C-Reactive Protein, Quantitative 29.7H, Pro-B- Type Natriuretic Peptide > 86870A, Total Protein 6.9, Albumin 2.8L, Globulin 4.1 , Albumin/Globulin Ratio 0.7L Height (Feet): 5 Height (Inches): 5.00 Weight (Pounds): 141 General Appearance: confused EENT: PERRL/EOMI Neck: non-tender Cardiovascular: normal rate Respiratory/Chest: rhonchi - bilaterally Abdomen: soft Viktor García MD Mar 13, 2019 22:20
--- NOTE | 2019-03-13 22:26 | General Progress Note ---
Assessment/Plan Assessment/Plan: Assessment - Failed swallow, aspiration risk - NSTEMI - PNA - CAD - ESRD, HD - OBS Recommendations - NPO x meds - Eliquis on hold--> will begin IV heparin - postpone PEG placement - If to be placed under current status, needs ICU transfer and intubation first - family to rediscuss. Subjective Allergies: Coded Allergies: No Known Allergies (Unverified , 05/25/13) Subjective Above noted worsened respiratory status overnight now on BIPAP ATC less responsive d/w son: - advised will postpone PEG until more stable - advised may need to be intubated for PEG - advised may be difficult to extubate afterwards - Family to discuss and get back to me with decision. Objective Last 24 Hour Vital Signs Date Time Temp Pulse Resp B/P (MAP) Pulse Ox O2 Delivery O2 Flow Rate FiO2 03/13/19 21:19 74 26 97 Facial 35 03/13/19 21:00 95 116/73 03/13/19 19:18 68 24 99 Bi-Pap 35 03/13/19 19:18 99 Bi-Pap 35 03/13/19 19:17 68 31 99 Facial 35 03/13/19 17:01 67 39 97 Facial 35 03/13/19 16:00 Bi-pap 03/13/19 16:00 69 03/13/19 16:00 98.1 67 16 119/60 (79) 94 03/13/19 15:42 68 24 100 Facial 35 03/13/19 14:30 119/60 03/13/19 12:47 77 39 100 Facial 35 03/13/19 12:00 98.3 69 16 122/71 (88) 94 03/13/19 12:00 Bi-pap 03/13/19 12:00 70 03/13/19 11:30 68 30 98 Facial 35 03/13/19 09:29 71 27 98 Facial 35 03/13/19 09:00 112/52 03/13/19 09:00 71 112/52 03/13/19 08:00 71 03/13/19 08:00 98.4 72 16 112/52 (72) 100 03/13/19 08:00 Bi-pap 03/13/19 07:17 72 19 99 Facial 35 03/13/19 07:17 97 Bi-Pap 35 03/13/19 07:15 73 24 98 Bi-Pap 35 03/13/19 04:38 74 30 95 Facial 35 03/13/19 04:00 99.4 69 26 120/55 (76) 99 03/13/19 04:00 Bi-pap 03/13/19 04:00 74 03/13/19 03:22 74 30 97 Facial 35 03/13/19 01:05 76 27 96 Facial 35 03/13/19 00:00 76 03/13/19 00:00 Bi-pap 03/13/19 00:00 99.1 73 21 106/68 (81) 99 03/12/19 22:55 78 30 100 Facial 80 Intake and Output 03/12/19 03/13/19 19:00 07:00 Intake Total 2277.5 ml 270 ml Balance 2277.5 ml 270 ml IV Total 277.5 ml 270 ml Hemodialysis 2000 ml Laboratory Tests 03/13/19 03:05: White Blood Count 5.1, Red Blood Count 2.45L, Hemoglobin 8.1L, Hematocrit 24.4L , Mean Corpuscular Volume 100H, Mean Corpuscular Hemoglobin 33.0H, Mean Corpuscular Hemoglobin Concent 33.2, Red Cell Distribution Width 15.4H, Platelet Count 104L, Mean Platelet Volume 7.8, Neutrophils (%) (Auto) , Lymphocytes (%) (Auto) , Monocytes (%) (Auto) , Eosinophils (%) (Auto) , Basophils (%) (Auto) , Sodium Level 144, Potassium Level 3.8, Chloride Level 102 , Carbon Dioxide Level 31, Anion Gap 12, Blood Urea Nitrogen 41H, Creatinine 5.2H, Estimat Glomerular Filtration Rate , Glucose Level 88#, Uric Acid 5.4, Calcium Level 8.4L, Phosphorus Level 5.9H, Magnesium Level 2.3, Total Bilirubin 0.8, Aspartate Amino Transf (AST/SGOT) 88H, Alanine Aminotransferase (ALT/SGPT) 48, Alkaline Phosphatase 202H, C-Reactive Protein, Quantitative 29.7H, Pro-B- Type Natriuretic Peptide > 32542L, Total Protein 6.9, Albumin 2.8L, Globulin 4.1 , Albumin/Globulin Ratio 0.7L Height (Feet): 5 Height (Inches): 5.00 Weight (Pounds): 141 Objective Elderly man NCAT, (+) Halo BIPAP supple Coarse ronchi RR Abd soft ND Neuro confused Mann Aguilar MD Mar 13, 2019 22:26
[2019-03-14] VITALS: BP 128/74
--- NOTE | 2019-03-14 03:45 | Progress Note ---
DATE: 03/14/2019 SUBJECTIVE: The patient currently is in [place] overnight and developed increasing shortness of breath, required BiPAP placement. The patient currently is awake, confused, and on BiPAP. OBJECTIVE: VITAL SIGNS: His vital signs are stable. He is afebrile. LUNGS: Revealed bilateral rhonchi. HEART: Regular rate and rhythm. ABDOMEN: Soft. Positive bowel sounds. EXTREMITIES: No clubbing, cyanosis, or edema. NEURO: He moves all his extremities. LABORATORY DATA: Noted. ASSESSMENT AND PLAN: 1. Aspiration risks. 2. Respiratory failure. 3. History of CVA. 4. History of diabetes. 5. NSTEMI. 6. End-stage renal failure, on dialysis. PLAN: The patient is on antibiotics and received aggressive pulmonary hygiene. He is on BiPAP and followed by Dr. Cornelius. The patient is in aspiration risk. The plan is to insert the percutaneous endoscopic gastrostomy when he is stable. Eliquis has been held. Dr. Corcoran plans on taking him for catheterization when he is medically stable, off antibiotics. Antibiotics were managed by Dr. Boyd Tee. He does have end stage renal disease and he is dialysis dependent. The patient was managed by his wire fence builder, Dr. Brandt. The patient should be on DVT and ulcer prophylaxis. Viktor García M.D. DR: KELLEY JOB#: [id number] CC:
[2019-03-14 04:00] VITALS: BP 106/56
--- NOTE | 2019-03-14 05:45 | Progress Note ---
DATE: 03/14/2019 EVENTS OVERNIGHT AND SUBJECTIVE: The patient is afebrile. Vital signs are stable, but he has had increased O2 needs and has been on and off of BiPAP. Per nursing, he has been more short of breath, but no coughing, no chest pain, no other complaints. He is not getting tube feeds and percutaneous endoscopic gastrostomy was postponed given respiratory distress. Past medical history, past surgical history, allergies, medications, social history, family history, and review of systems unchanged. PHYSICAL EXAM: VITAL SIGNS: Afebrile. Vital signs stable on 4 L of O2. GENERAL: Cachectic male, on BiPAP. HEENT: Normocephalic and atraumatic. Oropharynx is clear with moist mucous membranes. NECK: Supple without lymphadenopathy. CHEST: Scattered coarse breath sounds and rhonchi. HEART: Regular rate and rhythm. ABDOMEN: Soft, nontender, and nondistended. EXTREMITIES: No cyanosis, clubbing, or edema. ANCILLARY DATA: Laboratories reviewed. ASSESSMENT: The patient is an 83-year-old male with a history of prior CVA, end-stage renal disease, on dialysis, hypertension, hyperlipidemia, CAD, CVA, BPH, presenting with dizziness and peq-HJ-ugwyfmtzx [place]. PROBLEM LIST: 1. Non-ST elevation [place]. 2. Pneumonia. 3. Dizziness. 4. End-stage renal disease, on dialysis. 5. CAD. 6. Hypertension. 7. Hyperlipidemia. 8. Anemia. 9. Diabetes. 10. Dysphagia. TREATMENT PLAN: 1. Optimize pulmonary hygiene/mobilize as tolerated. 2. Titrate O2. 3. P.r.n. bronchodilators. 4. Observe off antibiotics per ID, low threshold, and start HAP coverage. 5. Follow up Cardiology recommendations. 6. for PEG. 7. Monitor volumes and renal function, dialysis per renal. 8. PEG when stable. 9. Full Code. Continue to discuss goals of care. Thaddeus Cornelius M.D. DR: MARIA ISABEL JOB#: [id number] CC:
--- NOTE | 2019-03-14 06:30 | Progress Note ---
DATE: 03/13/2019 SUBJECTIVE: The patient is . We will continue p.r.n. medications. MENTAL STATUS EXAMINATION: The patient is alert, confused, and disoriented. He has psychomotor agitation. Mood is agitated. Affect is flat. Thought process is concrete. Thought content, no suicidal or homicidal ideation. Cognition is impaired. Insight and judgment is impaired. ASSESSMENT: Dementia with behavior disturbance. PLAN: 1. Continue risperidone. 2. Continue as needed. 3. Continue to follow and readjust the medications. Zi Carrera M.D. DR: ESME JOB#: [id number] CC:
--- NOTE | 2019-03-14 07:30 | NUR ---
HAND-OFF: Report given to KRISTI SIERRA. PT REMAINS STABLE.
--- NOTE | 2019-03-14 07:32 | NUR ---
NURSE NOTES: Received patient from MARIELA Triplett. Patient resting in bed. No signs of distress. On BiPAP at prescribed settings. No respiratory distress noted. No report of arrythmias from last night. Patient noted with bilateral wrists restraints. Safety precautions in place. bed lock and lowest position. call light within reach. Will continue to monitor.
[2019-03-14 08:00] VITALS: BP 143/88
[2019-03-14] MEDS: Docusate 100mg cap ORAL SCH ×3 (09:00→17:35)
[2019-03-14] MEDS: Lisinopril 10mg tab ORAL SCH (09:00)
[2019-03-14] MEDS: Aspirin Baby 81mg ORAL SCH (09:00)
[2019-03-14] MEDS: Flonase Nasal Inhaler 16gm NASAL SCH (10:24)
--- NOTE | 2019-03-14 10:41 | NUR ---
ST NOTES: SWALLOW STATUS: THE PATIENT IS VERY RESTLESS AND OFF BIPAP NOW. HE STILL NEEDS A SIMPLE MASK. PER RNKRISTI, HE IS STILL ON HOLD FOR PEG TODAY OR SOON. WHEN SHE GAVE HIM A SMALL TASTE OF CRUSHED MEDS WITH PUREED AND WHEN HE TENDED TO JUST MOVE IT AROUND IN HIS MOUTH, SHE DID NOT GIVE HIM MORE (NO NGT NOW SINCE HE HAS A BLEEDING RISK). EDUCATED/TRAINED STAFF IN POSTED [employer] PRECAUTIONS WITH FUTURE PEG FEEDINGS WHEN RUNNING AND NEED FOR ORAL CARE. WILL HOLD ON TRIAL TX AT THIS TIME SINCE HE IS VERY RESTLESS AND ON THE SIMPLE MASK. REVIEWED IMAGES TO MOD BARIUM SWALLOW STUDY AND FINALIZED THE REPORT. PLAN: TRIAL SKILLED DYSPHAGIA MANAGEMENT AND TX POST PEG ON SUNDAY IF PATIENT IS ABLE TO PARTICIPATE.
--- NOTE | 2019-03-14 11:34 | NUR ---
RD ASSESSMENT & RECOMMENDATIONS SEE CARE ACTIVITY FOR COMPLETE ASSESSMENT DAILY ESTIMATED NEEDS: Needs based on ESRD w/ HD, 63.6kg 25-35 kcals/kg 3921-2982 total kcals 1.2-1.8 g protein/kg 76-115 g total protein Fluid per MD, on HD mL/kg . total fluid mLs NUTRITION DIAGNOSIS: * Increased kcal and protein needs r/t renal dysfunction as evidenced by pt w/ ESRD on HD * Swallowing difficulty R/T dysphagia, respiratory status as evidenced by pt failed MBSS, now NPO, s/p RR, on BIPAP -> now on simple mask, PEG placement when pt stable per MD. CURRENT DIET:NPO ENTERAL NUTRITION RECOMMENDATIONS: NEPRO @ 40ml/hr x 24 hrs to provide 960ml, 1728kcal, 78g prot, 698ml free water * W/ GI access, initiate Nepro @ 10ml/hr x 6 hrs * Advance 10ml q 4-6 hrs as tolerated to goal rate * HOB over 30 degrees/ water flush per MD ADDITIONAL RECOMMENDATIONS: * Calibrated bedscale wt * Monitor NPO status, ability for PEG placement -> PEG placement when more stable per MD, off BIPAP this AM * Monitor lytes (Phos elev) * Monitor for hypoglycemia while pt on NPO- pt on D10% at this time
--- NOTE | 2019-03-14 11:43 | Cardiac Electrophysiology PN ---
Assessment/Plan Assessment/Plan 1. Troponin elevation, could be due to renal failure. Troponin peak is however at 3.5 that is coming down to 1.88. Confused in restraints. No CP or SOB. EKG no acute changes. EF 40-45% On aspirin, Coreg 3.125 bid and Lipitor. Will treat medically at this time 2. Cardiomyopathy with EF of 40%. BNP is more than 35,000. Echo on 02/02/2019 showed EF of 55% to 60%, repeat echocardiogram showed EF 40%. On Coreg, Lisinopril 10 daily and HD 3. On Eliquis for CVA and PVD. No Fib or DVT or PE 4. End-stage renal disease, on hemodialysis. 5. Lactic acidosis. 6. Hyperlipidemia, on Lipitor. 7. Dysphagia. Plan for EGD/PEG when off BIPAP 8. Respiratory failure on BIPAP DW RN Subjective Subjective Troponin levels coming down. HD pending today. EGD/ PEG rescheduled for today but still on BIPAP Objective Last 24 Hour Vital Signs Date Time Temp Pulse Resp B/P (MAP) Pulse Ox O2 Delivery O2 Flow Rate FiO2 03/14/19 08:00 Simple Mask 10.0 03/14/19 08:00 97.9 65 20 143/88 (106) 100 03/14/19 07:32 64 03/14/19 05:36 69 24 98 Facial 36 03/14/19 04:00 Bi-pap 03/14/19 04:00 97.5 67 22 106/56 (73) 100 03/14/19 04:00 67 03/14/19 03:08 68 21 96 Facial 35 03/14/19 01:01 72 24 97 Facial 35 03/14/19 00:00 69 03/14/19 00:00 97.3 68 22 128/74 (92) 99 03/14/19 00:00 Bi-pap 03/13/19 22:40 68 27 96 Facial 35 03/13/19 21:19 74 26 97 Facial 35 03/13/19 21:00 95 116/73 03/13/19 20:00 97.6 68 20 120/74 (89) 97 03/13/19 20:00 Bi-pap 03/13/19 20:00 Bi-pap 03/13/19 20:00 69 03/13/19 19:18 68 24 99 Bi-Pap 35 03/13/19 19:18 99 Bi-Pap 35 03/13/19 19:17 68 31 99 Facial 35 03/13/19 17:01 67 39 97 Facial 35 03/13/19 16:00 Bi-pap 03/13/19 16:00 69 03/13/19 16:00 98.1 67 16 119/60 (79) 94 03/13/19 15:42 68 24 100 Facial 35 03/13/19 14:30 119/60 03/13/19 12:47 77 39 100 Facial 35 03/13/19 12:00 98.3 69 16 122/71 (88) 94 03/13/19 12:00 Bi-pap 03/13/19 12:00 70 Intake and Output 03/13/19 03/14/19 19:00 07:00 Intake Total 30 ml 475 ml Balance 30 ml 475 ml IV Total 30 ml 475 ml Objective HEAD AND NECK: No JVD. LUNGS: Clear. CARDIOVASCULAR: Regular S1 and S2 with no gallop or murmur. ABDOMEN: Soft. EXTREMITIES: No pitting edema. Dialysis access in the left arm. Dariel Corcoran MD Mar 14, 2019 11:43
[2019-03-14 12:00] VITALS: BP 97/61
--- NOTE | 2019-03-14 13:03 | NUR ---
CASE MANAGEMENT:REVIEW 03/13/2019 SI;NSTEMI. RENAL FAILURE. 98.3 77 39 112/52 94% ON BI-PAP RBC 2.45 H/H 8.1/24.4 BUN 41 CREAT 5.2 AST 88 IS;COREG Q12 HRS CEFIPIME IV Q24 HRS DUO NEB HHN Q4HRT CLONIDINE SL Q6 HRS PRN SDU STATUS DCP; FROM HOME CASE MANAGEMENT:REVIEW 03/14/2019 SI;NSTEMI. RENAL FAILURE. 96.6 62 22 99% ON 10L SIMPLE MASK LABS - NONE IS;COREG Q12 HRS ZESTRIL QD DUO NEB HHN Q4HRT CLONIDINE SL Q6 HRS PRN SDU STATUS S/P PEG PLACEMENT DCP; FROM HOME
--- NOTE | 2019-03-14 14:08 | Infectious Diseases Prog Note ---
Assessment/Plan Assessment/Plan IMPRESSION: 1. Leukocytosis, resolved 2. Lactic acidosis. 3.Doubt sepsis 4. Jiy-LD-tyblbaytc GA. 5. End-stage renal disease, on hemodialysis. 6. Diabetes mellitus, type 2. 7. Hypertension. 8. BPH. 9. Systolic CHF with ejection fraction of 40%. 10. Dysphagia 11. Hypoxemia 12. Pulmonary edema versus pneumonia RECOMMENDATIONS: Continue Cefepime Will have PEG placement Subjective ROS Limited/Unobtainable: Yes Neurologic: Reports: confusion, other - on restraint Allergies: Coded Allergies: No Known Allergies (Unverified , 05/25/13) Objective Vital Signs Last 24 Hour Vital Signs Date Time Temp Pulse Resp B/P (MAP) Pulse Ox O2 Delivery O2 Flow Rate FiO2 03/14/19 12:00 Simple Mask 10.0 03/14/19 12:00 96.6 62 22 97/61 (73) 99 03/14/19 11:25 63 03/14/19 08:00 Simple Mask 10.0 03/14/19 08:00 97.9 65 20 143/88 (106) 100 03/14/19 07:32 64 03/14/19 05:36 69 24 98 Facial 36 03/14/19 04:00 Bi-pap 03/14/19 04:00 97.5 67 22 106/56 (73) 100 03/14/19 04:00 67 03/14/19 03:08 68 21 96 Facial 35 03/14/19 01:01 72 24 97 Facial 35 03/14/19 00:00 69 03/14/19 00:00 97.3 68 22 128/74 (92) 99 03/14/19 00:00 Bi-pap 03/13/19 22:40 68 27 96 Facial 35 03/13/19 21:19 74 26 97 Facial 35 03/13/19 21:00 95 116/73 03/13/19 20:00 97.6 68 20 120/74 (89) 97 03/13/19 20:00 Bi-pap 03/13/19 20:00 Bi-pap 03/13/19 20:00 69 03/13/19 19:18 68 24 99 Bi-Pap 35 03/13/19 19:18 99 Bi-Pap 35 03/13/19 19:17 68 31 99 Facial 35 03/13/19 17:01 67 39 97 Facial 35 03/13/19 16:00 Bi-pap 03/13/19 16:00 69 03/13/19 16:00 98.1 67 16 119/60 (79) 94 03/13/19 15:42 68 24 100 Facial 35 03/13/19 14:30 119/60 Height (Feet): 5 Height (Inches): 5.00 Weight (Pounds): 140 HEENT: mucous membranes moist Respiratory/Chest: lungs clear, other - oxygen by venturi mask Cardiovascular: normal rate Abdomen: soft, non tender Extremities: no edema Neurologic/Psychiatric: disoriented, other - opens eyes Current Medications Medications (Trade) Dose Ordered Sig/Stephany Route PRN Reason Start Time Stop Time Status Last Admin Dose Admin Acetaminophen (Tylenol) 650 mg Q6H PRN ORAL Mild Pain/Temp > 100.5 03/09/19 07:01 04/07/19 07:00 03/10/19 03:10 Albuterol/ Ipratropium (Albuterol/ Ipratropium) 3 ml Q4HRT PRN HHN Shortness of Breath 03/11/19 22:30 03/16/19 22:29 03/12/19 15:45 Aspirin (ASA) 81 mg DAILY ORAL 03/09/19 09:00 04/07/19 08:59 03/11/19 09:39 Atorvastatin Calcium (Lipitor) 20 mg BEDTIME ORAL 03/09/19 21:00 04/07/19 20:59 03/10/19 20:42 Carvedilol (Coreg) 3.125 mg EVERY 12 HOURS ORAL 03/10/19 21:00 04/09/19 20:59 03/11/19 09:36 Cefepime HCl 1 gm/ Dextrose 55 ml @ 110 mls/hr Q24H IVPB 03/13/19 18:00 03/20/19 17:59 03/13/19 19:28 Clonidine HCl (Catapres Tab) 0.1 mg Q8H PRN SL For High Blood Pressure 03/11/19 20:00 04/10/19 19:59 Dextrose 1,000 ml @ 30 mls/hr Q24H IV 03/09/19 14:07 04/08/19 14:06 03/13/19 19:28 Dextrose (Dextrose 50%) 25 ml Q30M PRN IV Hypoglycemia 03/09/19 07:00 04/07/19 06:59 Dextrose (Dextrose 50%) 50 ml Q30M PRN IV Hypoglycemia 03/09/19 07:00 04/07/19 06:59 Docusate Sodium (Colace) 100 mg TID ORAL 03/09/19 09:00 04/07/19 08:59 03/11/19 09:37 Ergocalciferol (Drisdol) 50,000 intlu ONCE A WEEK ORAL 03/15/19 18:00 04/07/19 17:59 Finasteride (Proscar) 5 mg DAILY ORAL 03/09/19 09:00 04/07/19 08:59 03/11/19 09:39 Fluticasone Propionate (Flonase) 2 spray DAILY NASAL 03/09/19 09:00 04/07/19 08:59 03/14/19 10:24 Guaifenesin/ Codeine Phosphate (Robitussin with codeine) 5 ml Q4H PRN ORAL For Cough 03/09/19 07:00 04/07/19 06:59 03/10/19 03:09 Hydralazine HCl (Apresoline) 25 mg Q4H PRN ORAL bp over 160 syst 03/09/19 07:03 04/07/19 07:02 03/10/19 03:09 Lisinopril (ZestriL) 10 mg DAILY ORAL 03/11/19 09:00 04/10/19 08:59 03/11/19 09:36 Lorazepam (Ativan 2mg/ml 1ml) 0.25 mg Q6H PRN IV For Anxiety 03/12/19 12:30 03/18/19 19:59 Lorazepam (Ativan) 1 mg Q6H PRN ORAL For Anxiety 03/12/19 12:28 03/19/19 12:27 Nitroglycerin (Ntg) 1 patch Q24H TDERMAL 03/09/19 14:30 04/08/19 14:29 03/13/19 14:30 Ondansetron HCl (Zofran) 4 mg Q4H PRN IVP Nausea & Vomiting 03/09/19 07:03 04/08/19 07:02 03/10/19 03:09 Pantoprazole (Protonix) 40 mg BID ORAL 03/09/19 09:00 04/07/19 06:59 03/11/19 09:36 Risperidone (RisperDAL) 1 mg BEDTIME ORAL 03/12/19 21:00 04/11/19 20:59 Sevelamer Carbonate (Renvela) 1,600 mg THREE TIMES A DAY ORAL 03/10/19 13:00 04/08/19 12:59 03/11/19 09:36 Tamsulosin HCl (Flomax) 0.4 mg BEDTIME ORAL 03/09/19 21:00 04/07/19 20:59 03/10/19 20:42 Boyd Tee MD Mar 14, 2019 14:08
[2019-03-14] MEDS: Nitroglycerin Patch 0.4mg TDERMAL SCH (14:30)
--- NOTE | 2019-03-14 14:40 | NUR ---
P.T. NOTES ADDENDUM S/P: APPROACHED PATIENT'S ROOM IN THE PM. PATIENT FOUND LYING IN A SEMI-FOWLERS POSITION IN BED. NOTICED PATIENT ON MAX, @ ALL TIMES. W/ SATURATION @ 100%. HOWEVER PATIENT'S PRESENTATION: LETHARGIC/UNRESPONSIVE. PATIENT GROUP HOME, OPEN EYES FOR A SECOND THEN, FADES AWAY. CLOSING HIS EYES. RN AWARE OF PATIENT'S STATUS. WILL F/U NEXT TX. TIME AND CONT W/P.T. PLAN. RSABADO.
[2019-03-14] MEDS: Dextrose 10% 1,000 ML IV SCH (14:46)
--- NOTE | 2019-03-14 15:07 | Nephrology Progress Note ---
Assessment/Plan Problem List: (1) ESRD (end stage renal disease) on dialysis (2) Cardiomyopathy (3) NSTEMI (non-ST elevated myocardial infarction) Assessment: Troponin lowering (4) Acute respiratory failure with hypoxia and hypercapnia Assessment ESRD- HTN Anemia DM CAD- Cardiomyopathy s/p SEPSIS CT Plan recent 2D echo 40% EjFx Pulm Toilet and support HD next 03/14 Keep BP in check - Hold bp meds for now due to low BP Albumin bolus ASA Nitrate per consultants per orders Subjective ROS Limited/Unobtainable: No Constitutional: Reports: malaise, weakness Objective Objective Last 24 Hour Vital Signs Date Time Temp Pulse Resp B/P (MAP) Pulse Ox O2 Delivery O2 Flow Rate FiO2 03/14/19 14:30 97/61 03/14/19 12:00 Simple Mask 10.0 03/14/19 12:00 96.6 62 22 97/61 (73) 99 03/14/19 11:25 63 03/14/19 08:00 Simple Mask 10.0 03/14/19 08:00 97.9 65 20 143/88 (106) 100 03/14/19 07:32 64 03/14/19 05:36 69 24 98 Facial 36 03/14/19 04:00 Bi-pap 03/14/19 04:00 97.5 67 22 106/56 (73) 100 03/14/19 04:00 67 03/14/19 03:08 68 21 96 Facial 35 03/14/19 01:01 72 24 97 Facial 35 03/14/19 00:00 69 03/14/19 00:00 97.3 68 22 128/74 (92) 99 03/14/19 00:00 Bi-pap 03/13/19 22:40 68 27 96 Facial 35 03/13/19 21:19 74 26 97 Facial 35 03/13/19 21:00 95 116/73 03/13/19 20:00 97.6 68 20 120/74 (89) 97 03/13/19 20:00 Bi-pap 03/13/19 20:00 Bi-pap 03/13/19 20:00 69 03/13/19 19:18 68 24 99 Bi-Pap 35 03/13/19 19:18 99 Bi-Pap 35 03/13/19 19:17 68 31 99 Facial 35 03/13/19 17:01 67 39 97 Facial 35 03/13/19 16:00 Bi-pap 03/13/19 16:00 69 03/13/19 16:00 98.1 67 16 119/60 (79) 94 03/13/19 15:42 68 24 100 Facial 35 Intake and Output 03/13/19 03/14/19 19:00 07:00 Intake Total 30 ml 475 ml Balance 30 ml 475 ml IV Total 30 ml 475 ml Height (Feet): 5 Height (Inches): 5.00 Weight (Pounds): 140 General Appearance: no apparent distress, lethargic, other - being tapered off BIPAP Cardiovascular: normal rate Respiratory/Chest: decreased breath sounds Abdomen: distended Objective no change Mikey Brandt MD Mar 14, 2019 15:07
--- NOTE | 2019-03-14 15:45 | NUR ---
NURSE NOTES: Dr. García made aware that the patient is not tolerating oral medications. And that patient was put on simple mask,patient tolerating well. No new orders received. Will continue to monitor patient.
--- NOTE | 2019-03-14 15:57 | Diagnostic Imaging Report ---
Indications: Dysphagia Technique: Patient ingested multiple substances under the supervision of speech pathology. Video fluoroscopic recording performed. Total fluoroscopy time 297 seconds. Total dose area product 0.02061 mGycm2 Total number of images-11 Comparison: None Findings: Aspiration of thin liquid barium is demonstrated. Multiple episodes of penetration also demonstrated. Penetration of nectar thick liquid barium is noted. Penetration of honey thick liquid barium is noted. Delayed initiation of degradation with barium pudding is noted. There is also penetration of barium pudding Impression: Positive for aspiration of thin liquid barium and penetration multiple other substances. Please refer to speech pathology report for more detailed analysis
[2019-03-14 16:00] VITALS: BP 97/55
[2019-03-14] MEDS: Cefepime HCl 1 GM in D5W 55 ML IVPB SCH ×2 (18:00→21:04)
--- NOTE | 2019-03-14 18:08 | General Progress Note ---
Assessment/Plan Assessment/Plan: Assessment - Failed swallow, aspiration risk - resp failure - NSTEMI - PNA - CAD - ESRD, HD - OBS Recommendations - NPO x meds - Eliquis on hold--> will begin IV heparin - postpone PEG placement to Sunday Subjective Allergies: Coded Allergies: No Known Allergies (Unverified , 05/25/13) Subjective Above noted seen this am on BIPAP later was able to be weaned off to simple mask d/w PMD off of anticoagulation Objective Last 24 Hour Vital Signs Date Time Temp Pulse Resp B/P (MAP) Pulse Ox O2 Delivery O2 Flow Rate FiO2 03/14/19 16:00 Simple Mask 10.0 03/14/19 16:00 96.7 60 22 97/55 (69) 99 03/14/19 15:47 61 03/14/19 14:30 97/61 03/14/19 12:00 Simple Mask 10.0 03/14/19 12:00 96.6 62 22 97/61 (73) 99 03/14/19 11:25 63 03/14/19 08:00 Simple Mask 10.0 03/14/19 08:00 97.9 65 20 143/88 (106) 100 03/14/19 07:32 64 03/14/19 05:36 69 24 98 Facial 36 03/14/19 04:00 Bi-pap 03/14/19 04:00 97.5 67 22 106/56 (73) 100 03/14/19 04:00 67 03/14/19 03:08 68 21 96 Facial 35 03/14/19 01:01 72 24 97 Facial 35 03/14/19 00:00 69 03/14/19 00:00 97.3 68 22 128/74 (92) 99 03/14/19 00:00 Bi-pap 03/13/19 22:40 68 27 96 Facial 35 03/13/19 21:19 74 26 97 Facial 35 03/13/19 21:00 95 116/73 03/13/19 20:00 97.6 68 20 120/74 (89) 97 03/13/19 20:00 Bi-pap 03/13/19 20:00 Bi-pap 03/13/19 20:00 69 03/13/19 19:18 68 24 99 Bi-Pap 35 03/13/19 19:18 99 Bi-Pap 35 03/13/19 19:17 68 31 99 Facial 35 Intake and Output 03/13/19 03/14/19 19:00 07:00 Intake Total 30 ml 475 ml Balance 30 ml 475 ml IV Total 30 ml 475 ml Height (Feet): 5 Height (Inches): 5.00 Weight (Pounds): 140 Objective Elderly man NCAT, (+) Halo BIPAP supple Coarse ronchi RR Abd soft ND Neuro confused Mann Aguilar MD Mar 14, 2019 18:08
--- NOTE | 2019-03-14 18:25 | Pulmonology Progress Note ---
Assessment/Plan Problems: (1) NSTEMI (non-ST elevated myocardial infarction) (2) ESRD (end stage renal disease) on dialysis (3) Cardiomyopathy (4) HTN (hypertension) (5) HLD (hyperlipidemia) (6) CVA (cerebral vascular accident) Assessment/Plan ASSESSMENT: The patient is an 83-year-old male with a history of prior CVA, end -stage renal disease, on dialysis, hypertension, hyperlipidemia, CAD, CVA, and BPH presenting with dizziness and odk-BP-ahzvmeybi [place]. He is fairly stable from a respiratory standpoint. PROBLEM LIST: 1. Non ST-elevation myocardial infarction. 2. Recent pneumonia. 3. Dizziness. 4. End-stage renal disease, on dialysis. 5. CAD. 6. Hypertension. 7. Hyperlipidemia. 8. Anemia. 9. Diabetes. TREATMENT PLAN: 1. Optimize pulmonary hygiene/mobilize as tolerated. 2. Titrate O2 3. HHN's 4. Abx: Cefepime 5. Follow up Cardiology recommendations, medical management of non-STEMI. 6. Eliquis held for PEG, continue IVUH 7. Monitor volumes and renal function, dialysis per Renal. 8. PEG sunday 9. FC, continue to discuss GOC Subjective Allergies: Coded Allergies: No Known Allergies (Unverified , 05/25/13) Subjective NAEO [employer] O2 needs now on 10L + SOB no cough no CP no FC Not niki PO, PEG sunday, Eliquis held on IVUH Objective Last 24 Hour Vital Signs Date Time Temp Pulse Resp B/P (MAP) Pulse Ox O2 Delivery O2 Flow Rate FiO2 03/14/19 16:00 Simple Mask 10.0 03/14/19 16:00 96.7 60 22 97/55 (69) 99 03/14/19 15:47 61 03/14/19 14:30 97/61 03/14/19 12:00 Simple Mask 10.0 03/14/19 12:00 96.6 62 22 97/61 (73) 99 03/14/19 11:25 63 03/14/19 08:00 Simple Mask 10.0 03/14/19 08:00 97.9 65 20 143/88 (106) 100 03/14/19 07:32 64 03/14/19 05:36 69 24 98 Facial 36 03/14/19 04:00 Bi-pap 03/14/19 04:00 97.5 67 22 106/56 (73) 100 03/14/19 04:00 67 03/14/19 03:08 68 21 96 Facial 35 03/14/19 01:01 72 24 97 Facial 35 03/14/19 00:00 69 03/14/19 00:00 97.3 68 22 128/74 (92) 99 03/14/19 00:00 Bi-pap 03/13/19 22:40 68 27 96 Facial 35 03/13/19 21:19 74 26 97 Facial 35 03/13/19 21:00 95 116/73 03/13/19 20:00 97.6 68 20 120/74 (89) 97 03/13/19 20:00 Bi-pap 03/13/19 20:00 Bi-pap 03/13/19 20:00 69 03/13/19 19:18 68 24 99 Bi-Pap 35 03/13/19 19:18 99 Bi-Pap 35 03/13/19 19:17 68 31 99 Facial 35 Intake and Output 03/13/19 03/14/19 19:00 07:00 Intake Total 30 ml 475 ml Balance 30 ml 475 ml IV Total 30 ml 475 ml General Appearance: cachetic HEENT: normocephalic, atraumatic, anicteric, mucous membranes moist Respiratory/Chest: rhonchi Cardiovascular: normal peripheral pulses, normal rate, regular rhythm Abdomen: normal bowel sounds, soft, non tender, no organomegaly, non distended , no mass Extremities: no cyanosis, no clubbing, no edema Current Medications Medications (Trade) Dose Ordered Sig/Stephany Route PRN Reason Start Time Stop Time Status Last Admin Dose Admin Acetaminophen (Tylenol) 650 mg Q6H PRN ORAL Mild Pain/Temp > 100.5 03/09/19 07:01 04/07/19 07:00 03/10/19 03:10 Albumin Human 100 ml @ 100 mls/hr ONCE ONCE IV 03/14/19 17:30 03/14/19 18:29 03/14/19 17:30 Albuterol/ Ipratropium (Albuterol/ Ipratropium) 3 ml Q4HRT PRN HHN Shortness of Breath 03/11/19 22:30 03/16/19 22:29 03/12/19 15:45 Aspirin (ASA) 81 mg DAILY ORAL 03/09/19 09:00 04/07/19 08:59 03/11/19 09:39 Atorvastatin Calcium (Lipitor) 20 mg BEDTIME ORAL 03/09/19 21:00 04/07/19 20:59 03/10/19 20:42 Carvedilol (Coreg) 3.125 mg EVERY 12 HOURS ORAL 03/10/19 21:00 04/09/19 20:59 03/11/19 09:36 Cefepime HCl 1 gm/ Dextrose 55 ml @ 110 mls/hr Q24H IVPB 03/14/19 21:00 03/21/19 20:59 Clonidine HCl (Catapres Tab) 0.1 mg Q8H PRN SL For High Blood Pressure 03/11/19 20:00 04/10/19 19:59 Dextrose 1,000 ml @ 30 mls/hr Q24H IV 03/09/19 14:07 04/08/19 14:06 03/14/19 14:46 Dextrose (Dextrose 50%) 25 ml Q30M PRN IV Hypoglycemia 03/09/19 07:00 04/07/19 06:59 Dextrose (Dextrose 50%) 50 ml Q30M PRN IV Hypoglycemia 03/09/19 07:00 04/07/19 06:59 Docusate Sodium (Colace) 100 mg TID ORAL 03/09/19 09:00 04/07/19 08:59 03/11/19 09:37 Ergocalciferol (Drisdol) 50,000 intlu ONCE A WEEK ORAL 03/15/19 18:00 04/07/19 17:59 Finasteride (Proscar) 5 mg DAILY ORAL 03/09/19 09:00 04/07/19 08:59 03/11/19 09:39 Fluticasone Propionate (Flonase) 2 spray DAILY NASAL 03/09/19 09:00 04/07/19 08:59 03/14/19 10:24 Guaifenesin/ Codeine Phosphate (Robitussin with codeine) 5 ml Q4H PRN ORAL For Cough 03/09/19 07:00 04/07/19 06:59 03/10/19 03:09 Heparin Sodium/ Dextrose 500 ml @ 15.254 mls/ hr ADJUST PER PROTOCOL IV 03/14/19 18:15 04/13/19 18:14 UNV Hydralazine HCl (Apresoline) 25 mg Q4H PRN ORAL bp over 160 syst 03/09/19 07:03 04/07/19 07:02 03/10/19 03:09 Lisinopril (ZestriL) 10 mg DAILY ORAL 03/11/19 09:00 04/10/19 08:59 03/11/19 09:36 Lorazepam (Ativan 2mg/ml 1ml) 0.25 mg Q6H PRN IV For Anxiety 03/12/19 12:30 03/18/19 19:59 Lorazepam (Ativan) 1 mg Q6H PRN ORAL For Anxiety 03/12/19 12:28 03/19/19 12:27 Nitroglycerin (Ntg) 1 patch Q24H TDERMAL 03/09/19 14:30 04/08/19 14:29 03/13/19 14:30 Ondansetron HCl (Zofran) 4 mg Q4H PRN IVP Nausea & Vomiting 03/09/19 07:03 04/08/19 07:02 03/10/19 03:09 Pantoprazole (Protonix) 40 mg BID ORAL 03/09/19 09:00 04/07/19 06:59 03/11/19 09:36 Risperidone (RisperDAL) 1 mg BEDTIME ORAL 03/12/19 21:00 04/11/19 20:59 Sevelamer Carbonate (Renvela) 1,600 mg THREE TIMES A DAY ORAL 03/10/19 13:00 04/08/19 12:59 03/11/19 09:36 Tamsulosin HCl (Flomax) 0.4 mg BEDTIME ORAL 03/09/19 21:00 04/07/19 20:59 03/10/19 20:42 Thaddeus Cornelius MD Mar 14, 2019 18:25
[2019-03-14 18:44] LABS: HEMATOCRIT 30.7 % (42.0-52.0); HEMOGLOBIN 9.8 G/DL (14.2-18.0); MEAN CORPUSCULAR VOLUME 99 FL (80-99); PLATELET COUNT 80 K/UL (150-450); RED BLOOD COUNT 3.11 M/UL (4.70-6.10); RED CELL DISTRIBUTION WIDTH 14.7 % (11.6-14.8); WHITE BLOOD COUNT 4.9 K/UL (4.8-10.8)
[2019-03-14 18:45] LABS: LYMPHOCYTES % (AUTO) 7.3 % (20.0-45.0); MONOCYTES % (AUTO) 3.2 % (1.0-10.0); NEUTROPHILS % (AUTO) 89.1 % (45.0-75.0)
[2019-03-14 18:46] LABS: BASOPHILS % (AUTO) 0.2 % (0.0-2.0); EOSINOPHILS % (AUTO) 0.2 % (0.0-3.0)
[2019-03-14] MEDS: Albuterol/Ipratropium 3ml neb HHN SCH (18:55)
--- NOTE | 2019-03-14 19:10 | NUR ---
HAND-OFF: report given to luis alberto loco
--- NOTE | 2019-03-14 19:15 | NUR ---
NURSE NOTES: Received patient from MARIELA Monae. patient is aaox1, confused and no acute distress. 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 Patient on simple mask, NPO including medications, and on frame stripper and crusher. Patient has a right hand and right forearm 22g IV. D10 at 30mL/hr running on right hand. Sacral redness noted. Will try to feed patient as tolerated. Bed at its lowest position, call light in reach and x3 bed rails are up.
[2019-03-14 20:00] VITALS: BP 114/46
[2019-03-14] MEDS ORDERED: Heparin 25,000u/D5W 500ml 500 ML IV SCH (21:00)
[2019-03-14] MEDS: Atorvastatin 20mg tab ORAL SCH (21:00)
[2019-03-14] MEDS: Tamsulosin 0.4mg cap ORAL SCH (21:00)
--- NOTE | 2019-03-14 21:51 | General Progress Note ---
Assessment/Plan Assessment/Plan: respiratory failure aspiration risk NSTEMI renal failure diabeters persistent hypoglycemia ho pneumonia ho elevated lactic acid htn hld off bipapa aggressive pulmonaryhygiene, followed by Dr Adryan nichole noted , pos aspirate keep NPOconsider GTube placment dw Dr Estelita woods held aspiration precutions\pulmonary hygiene echo noted, decreaed EF cards fup dw Dr Corcoran considering cath when off abx endo eval appreciated all diabetic meds held dialysis dependint check cultures abx per ID dw Dr Burk, on eliquis due to previous stroke paf dvt and ulcer prophylaxis Subjective Allergies: Coded Allergies: No Known Allergies (Unverified , 05/25/13) Subjective seen in am now off bipap Objective Last 24 Hour Vital Signs Date Time Temp Pulse Resp B/P (MAP) Pulse Ox O2 Delivery O2 Flow Rate FiO2 03/14/19 19:03 62 20 96 Venturi Mask 6.0 35 03/14/19 19:02 99 Venturi Mask 6.0 35 03/14/19 18:56 65 18 99 Venturi Mask 6.0 35 62 18 96 03/14/19 18:00 99 Simple Mask 8.0 52 03/14/19 16:00 Simple Mask 10.0 03/14/19 16:00 96.7 60 22 97/55 (69) 99 03/14/19 15:47 61 03/14/19 14:30 97/61 03/14/19 12:00 Simple Mask 10.0 03/14/19 12:00 96.6 62 22 97/61 (73) 99 03/14/19 11:25 63 03/14/19 09:28 60 16 99 Simple Mask 8.0 52 03/14/19 08:00 Simple Mask 10.0 03/14/19 08:00 97.9 65 20 143/88 (106) 100 03/14/19 07:32 64 03/14/19 07:13 65 16 99 Facial 35 03/14/19 05:36 69 24 98 Facial 36 03/14/19 04:00 Bi-pap 03/14/19 04:00 97.5 67 22 106/56 (73) 100 03/14/19 04:00 67 03/14/19 03:08 68 21 96 Facial 35 03/14/19 01:01 72 24 97 Facial 35 03/14/19 00:00 69 03/14/19 00:00 97.3 68 22 128/74 (92) 99 03/14/19 00:00 Bi-pap 03/13/19 22:40 68 27 96 Facial 35 Intake and Output 03/13/19 03/14/19 19:00 07:00 Intake Total 30 ml 475 ml Balance 30 ml 475 ml IV Total 30 ml 475 ml Laboratory Tests 03/14/19 18:35: White Blood Count 4.9, Red Blood Count 3.11L, Hemoglobin 9.8L, Hematocrit 30.7L , Mean Corpuscular Volume 99, Mean Corpuscular Hemoglobin 31.5H, Mean Corpuscular Hemoglobin Concent 31.9L, Red Cell Distribution Width 14.7, Platelet Count 80L, Mean Platelet Volume 8.4, Neutrophils (%) (Auto) 89.1H, Lymphocytes (%) (Auto) 7.3L, Monocytes (%) (Auto) 3.2, Eosinophils (%) (Auto) 0.2, Basophils (%) (Auto) 0.2, Activated Partial Thromboplast Time 36H Height (Feet): 5 Height (Inches): 5.00 Weight (Pounds): 140 General Appearance: WD/WN Neck: supple Cardiovascular: normal rate Respiratory/Chest: lungs clear Abdomen: soft Viktor García MD Mar 14, 2019 21:51
--- NOTE | 2019-03-14 23:59 | Psych Consult Progress Note ---
Psychiatry Progress Note Psychiatry Progress Note Subjective alert, confused, and disoriented. He has psychomotor agitation. Mood is agitated. Affect is flat. Thought process is concrete. Thought content, no suicidal or homicidal ideation. Cognition is impaired. Insight and judgment is impaired. ASSESSMENT: Dementia with behavior disturbance. PLAN: 1. Continue risperidone. 2. Continue ativan as needed. 3. Continue to follow and readjust the medications. Medications Current Medications Medications (Trade) Dose Ordered Sig/Stephany Route PRN Reason Start Time Stop Time Status Last Admin Dose Admin Acetaminophen (Tylenol) 650 mg Q6H PRN ORAL Mild Pain/Temp > 100.5 03/09/19 07:01 04/07/19 07:00 03/10/19 03:10 Albuterol/ Ipratropium (Albuterol/ Ipratropium) 3 ml Q4HRT PRN HHN Shortness of Breath 03/11/19 22:30 03/16/19 22:29 03/12/19 15:45 Albuterol/ Ipratropium (Albuterol/ Ipratropium) 3 ml Q6HRT HHN 03/14/19 19:00 03/19/19 18:59 03/14/19 18:55 Aspirin (ASA) 81 mg DAILY ORAL 03/09/19 09:00 04/07/19 08:59 03/11/19 09:39 Atorvastatin Calcium (Lipitor) 20 mg BEDTIME ORAL 03/09/19 21:00 04/07/19 20:59 03/10/19 20:42 Carvedilol (Coreg) 3.125 mg EVERY 12 HOURS ORAL 03/10/19 21:00 04/09/19 20:59 03/11/19 09:36 Cefepime HCl 1 gm/ Dextrose 55 ml @ 110 mls/hr Q24H IVPB 03/14/19 21:00 03/21/19 20:59 03/14/19 21:04 Clonidine HCl (Catapres Tab) 0.1 mg Q8H PRN SL For High Blood Pressure 03/11/19 20:00 04/10/19 19:59 Dextrose 1,000 ml @ 30 mls/hr Q24H IV 03/09/19 14:07 04/08/19 14:06 03/14/19 14:46 Dextrose (Dextrose 50%) 25 ml Q30M PRN IV Hypoglycemia 1/12/20 07:00 04/07/19 06:59 Dextrose (Dextrose 50%) 50 ml Q30M PRN IV Hypoglycemia 03/09/19 07:00 04/07/19 06:59 Docusate Sodium (Colace) 100 mg TID ORAL 03/09/19 09:00 04/07/19 08:59 03/11/19 09:37 Ergocalciferol (Drisdol) 50,000 intlu ONCE A WEEK ORAL 03/15/19 18:00 04/07/19 17:59 Finasteride (Proscar) 5 mg DAILY ORAL 03/09/19 09:00 04/07/19 08:59 03/11/19 09:39 Fluticasone Propionate (Flonase) 2 spray DAILY NASAL 03/09/19 09:00 04/07/19 08:59 03/14/19 10:24 Guaifenesin/ Codeine Phosphate (Robitussin with codeine) 5 ml Q4H PRN ORAL For Cough 03/09/19 07:00 04/07/19 06:59 03/10/19 03:09 Heparin Sodium/ Dextrose 500 ml @ 15.254 mls/ hr ADJUST PER PROTOCOL IV 03/14/19 21:00 04/13/19 20:59 03/14/19 21:09 Hydralazine HCl (Apresoline) 25 mg Q4H PRN ORAL bp over 160 syst 03/09/19 07:03 04/07/19 07:02 03/10/19 03:09 Lisinopril (ZestriL) 10 mg DAILY ORAL 03/11/19 09:00 04/10/19 08:59 03/11/19 09:36 Lorazepam (Ativan 2mg/ml 1ml) 0.25 mg Q6H PRN IV For Anxiety 03/12/19 12:30 03/18/19 19:59 Lorazepam (Ativan) 1 mg Q6H PRN ORAL For Anxiety 03/12/19 12:28 03/19/19 12:27 Nitroglycerin (Ntg) 1 patch Q24H TDERMAL 03/09/19 14:30 04/08/19 14:29 03/13/19 14:30 Ondansetron HCl (Zofran) 4 mg Q4H PRN IVP Nausea & Vomiting 03/09/19 07:03 04/08/19 07:02 03/10/19 03:09 Pantoprazole (Protonix) 40 mg BID ORAL 03/09/19 09:00 04/07/19 06:59 03/11/19 09:36 Risperidone (RisperDAL) 1 mg BEDTIME ORAL 03/12/19 21:00 04/11/19 20:59 Sevelamer Carbonate (Renvela) 1,600 mg THREE TIMES A DAY ORAL 03/10/19 13:00 04/08/19 12:59 03/11/19 09:36 Tamsulosin HCl (Flomax) 0.4 mg BEDTIME ORAL 03/09/19 21:00 04/07/19 20:59 03/10/19 20:42 Allergies: Coded Allergies: No Known Allergies (Unverified , 05/25/13) Objective Data Height (Feet): 5 Height (Inches): 5.00 Weight (Pounds): 140 General Appearance: no apparent distress, alert, confused, agitated Zi Carrera MD Mar 14, 2019 23:59
[2019-03-15] VITALS (7 sets, daily range): BP systolic 92–127; BP diastolic 39–62
[2019-03-15] MEDS: Albuterol/Ipratropium 3ml neb HHN SCH ×4 (01:03→19:07)
[2019-03-15 03:44] LABS: HEMATOCRIT 27.9 % (42.0-52.0); MEAN CORPUSCULAR VOLUME 99 FL (80-99); PLATELET COUNT 67 K/UL (150-450); RED BLOOD COUNT 2.83 M/UL (4.70-6.10); WHITE BLOOD COUNT 5.9 K/UL (4.8-10.8)
--- NOTE | 2019-03-15 03:50 | NUR ---
NURSE NOTES: Patient has no scutum to collect. Left upper arm fistula bruit and thrill present.
--- NOTE | 2019-03-15 04:10 | NUR ---
NURSE NOTES: Bridgette from [facility] called to report PTT of 48, bolus of 5,000u, new rate of 16u/kg/hr. Bridgette was concerned about the platelets dropping to 67. I will call the MD to report.
[2019-03-15 04:21] LABS: ALANINE AMINOTRANSFERASE 35 U/L (12-78); ALBUMIN 2.5 G/DL (3.4-5.0); ALBUMIN/GLOBULIN RATIO 0.6 (1.0-2.7); ALKALINE PHOSPHATASE 150 U/L (46-116); ANION GAP 6 mmol/L (5-15); ASPARTATE AMINO TRANSFERASE 71 U/L (15-37); BILIRUBIN,TOTAL 0.8 MG/DL (0.2-1.0); BLOOD UREA NITROGEN 42 mg/dL (7-18); CALCIUM 8.3 MG/DL (8.5-10.1); CARBON DIOXIDE 35 MMOL/L (21-32); CHLORIDE 104 MMOL/L (98-107); CREATININE 5.1 MG/DL (0.55-1.30); PHOSPHORUS 4.8 MG/DL (2.5-4.9); POTASSIUM 3.2 MMOL/L (3.5-5.1); SODIUM 145 MMOL/L (136-145)
--- NOTE | 2019-03-15 04:28 | NUR ---
NURSE NOTES: Left a message with Dr. Aguilar regarding PTT of 48 and dropping platelets from 80 to 67. Will wait for the MDs call.
--- NOTE | 2019-03-15 05:00 | NUR ---
NURSE NOTES: Dr. Aguilar called to DC Heparin drip, place SCDs on patient. Follow up with [facility] to confirm aspirin 81mg. I placed order for Venous duplex for SCDs and left a message for [facility].
--- NOTE | 2019-03-15 06:49 | NUR ---
NURSE NOTES: Left message with Dr Corcoran regarding the continuation of the 81mg aspirin. Patients platelets are declining from 80 to 67.
--- NOTE | 2019-03-15 07:05 | NUR ---
HAND-OFF: Report given to MARIELA Monae.
--- NOTE | 2019-03-15 07:25 | NUR ---
NURSE NOTES: Received from MARIELA Cross. patient is resting in bed. Patient is confused, and faroese speaking. Patient is on simple mask 10 L as ordered and tolerating well. patient is on bilateral soft wrist restraints bruising noted on the right wrist, radial pulses palpable and normal. will continue to monitor.
[2019-03-15] MEDS: Docusate 100mg cap ORAL SCH ×2 (09:00→13:00)
[2019-03-15] MEDS: Lisinopril 10mg tab ORAL SCH (09:00)
[2019-03-15] MEDS: Aspirin Baby 81mg ORAL SCH (09:00)
[2019-03-15] MEDS: Flonase Nasal Inhaler 16gm NASAL SCH (09:36)
--- NOTE | 2019-03-15 09:38 | Diagnostic Imaging Report ---
EXAM: US Duplex Bilateral Lower Extremities Veins CLINICAL HISTORY: DVT TECHNIQUE: Real-time duplex ultrasound scan of the bilateral lower extremity veins integrating B-mode two-dimensional vascular structure, Doppler spectral analysis, color flow Doppler imaging and compression. COMPARISON: No relevant prior studies available. FINDINGS: Right deep veins: Unremarkable. No DVT in the right common femoral, femoral, proximal deep femoral or popliteal veins. The veins demonstrate normal color flow, are normally compressible, with normal phasic flow and/or augmentation response. Right superficial veins: Unremarkable. No thrombus in the visualized right great saphenous vein. Left deep veins: Unremarkable. No DVT in the left common femoral, femoral, proximal deep femoral or popliteal veins. The veins demonstrate normal color flow, are normally compressible, with normal phasic flow and/or augmentation response. Left superficial veins: Unremarkable. No thrombus in the visualized left great saphenous vein. Soft tissues: No acute findings. No popliteal cyst. IMPRESSION: Normal bilateral lower extremity duplex venous ultrasound.
--- NOTE | 2019-03-15 11:01 | Infectious Diseases Prog Note ---
Assessment/Plan Assessment/Plan IMPRESSION: 1. Leukocytosis, resolved 2. Lactic acidosis. 3.Doubt sepsis 4. [id number] PA. 5. End-stage renal disease, on hemodialysis. 6. Diabetes mellitus, type 2. 7. Hypertension. 8. BPH. 9. Systolic CHF with ejection fraction of 40%. 10. Dysphagia 11. Hypoxemia 12. Pulmonary edema versus pneumonia RECOMMENDATIONS: Continue Cefepime Will have PEG placement Subjective ROS Limited/Unobtainable: Yes Constitutional: Denies: fever Neurologic: Reports: confusion, other - on restraint Allergies: Coded Allergies: No Known Allergies (Unverified , 05/25/13) Objective Vital Signs Last 24 Hour Vital Signs Date Time Temp Pulse Resp B/P (MAP) Pulse Ox O2 Delivery O2 Flow Rate FiO2 03/15/19 08:30 96 Venturi Mask 10.0 45 03/15/19 08:00 Simple Mask 10.0 03/15/19 08:00 96.4 71 20 101/41 (61) 97 03/15/19 07:40 71 03/15/19 07:38 69 20 100 Venturi Mask 14.0 55 70 20 95 03/15/19 04:00 67 03/15/19 04:00 Simple Mask 10.0 03/15/19 04:00 97.0 68 20 110/41 (64) 98 03/15/19 01:03 66 18 100 Venturi Mask 14.0 55 64 18 98 03/15/19 00:00 97.9 79 20 127/62 (83) 96 03/15/19 00:00 Simple Mask 10.0 03/14/19 23:52 75 03/14/19 20:00 Simple Mask 10.0 03/14/19 20:00 71 03/14/19 20:00 96.4 77 20 114/46 (68) 93 03/14/19 19:03 62 20 96 Venturi Mask 6.0 35 03/14/19 19:02 99 Venturi Mask 6.0 35 03/14/19 18:56 65 18 99 Venturi Mask 6.0 35 62 18 96 03/14/19 18:00 99 Simple Mask 8.0 52 03/14/19 16:00 Simple Mask 10.0 03/14/19 16:00 96.7 60 22 97/55 (69) 99 03/14/19 15:47 61 03/14/19 14:30 97/61 03/14/19 12:00 Simple Mask 10.0 03/14/19 12:00 96.6 62 22 97/61 (73) 99 03/14/19 11:25 63 Height (Feet): 5 Height (Inches): 5.00 Weight (Pounds): 135 HEENT: mucous membranes moist Respiratory/Chest: lungs clear, other - Oxygen by mask Cardiovascular: normal rate Abdomen: soft, non tender Extremities: no edema Neurologic/Psychiatric: alert, responsive, disoriented Laboratory Tests Test 03/14/19 18:35 03/15/19 03:30 White Blood Count 4.9 K/UL (4.8-10.8) 5.9 K/UL (4.8-10.8) Red Blood Count 3.11 M/UL (4.70-6.10) L 2.83 M/UL (4.70-6.10) L Hemoglobin 9.8 G/DL (14.2-18.0) L 9.0 G/DL (14.2-18.0) L Hematocrit 30.7 % (42.0-52.0) L 27.9 % (42.0-52.0) L Mean Corpuscular Volume 99 FL (80-99) 99 FL (80-99) Mean Corpuscular Hemoglobin 31.5 PG (27.0-31.0) H 31.7 PG (27.0-31.0) H Mean Corpuscular Hemoglobin Concent 31.9 G/DL (32.0-36.0) L 32.2 G/DL (32.0-36.0) Red Cell Distribution Width 14.7 % (11.6-14.8) 15.0 % (11.6-14.8) H Platelet Count 80 K/UL (150-450) L 67 K/UL (150-450) L Mean Platelet Volume 8.4 FL (6.5-10.1) 7.7 FL (6.5-10.1) Neutrophils (%) (Auto) 89.1 % (45.0-75.0) H % (45.0-75.0) Lymphocytes (%) (Auto) 7.3 % (20.0-45.0) L % (20.0-45.0) Monocytes (%) (Auto) 3.2 % (1.0-10.0) % (1.0-10.0) Eosinophils (%) (Auto) 0.2 % (0.0-3.0) % (0.0-3.0) Basophils (%) (Auto) 0.2 % (0.0-2.0) % (0.0-2.0) Activated Partial Thromboplast Time 36 SEC (23-33) H 48 SEC (23-33) H Differential Total Cells Counted 100 Neutrophils % (Manual) 77 % (45-75) H Lymphocytes % (Manual) 7 % (20-45) L Monocytes % (Manual) 3 % (1-10) Eosinophils % (Manual) 0 % (0-3) Basophils % (Manual) 0 % (0-2) Band Neutrophils 13 % (0-8) H Platelet Estimate Decreased L Platelet Morphology Normal Hypochromasia 1+ Anisocytosis 1+ Sodium Level 145 MMOL/L (136-145) Potassium Level 3.2 MMOL/L (3.5-5.1) L Chloride Level 104 MMOL/L (98-107) Carbon Dioxide Level 35 MMOL/L (21-32) H Anion Gap 6 mmol/L (5-15) Blood Urea Nitrogen 42 mg/dL (7-18) H Creatinine 5.1 MG/DL (0.55-1.30) H Estimat Glomerular Filtration Rate mL/min (>60) Glucose Level 87 MG/DL (74-106) Uric Acid 4.8 MG/DL (2.6-7.2) Calcium Level 8.3 MG/DL (8.5-10.1) L Phosphorus Level 4.8 MG/DL (2.5-4.9) Magnesium Level 2.3 MG/DL (1.8-2.4) Total Bilirubin 0.8 MG/DL (0.2-1.0) Aspartate Amino Transf (AST/SGOT) 71 U/L (15-37) H Alanine Aminotransferase (ALT/SGPT) 35 U/L (12-78) Alkaline Phosphatase 150 U/L (46-116) H C-Reactive Protein, Quantitative 30.1 mg/dL (0.00-0.90) H Pro-B-Type Natriuretic Peptide > 89012 pg/mL (0-125) H Total Protein 6.4 G/DL (6.4-8.2) Albumin 2.5 G/DL (3.4-5.0) L Globulin 3.9 g/dL Albumin/Globulin Ratio 0.6 (1.0-2.7) L Current Medications Medications (Trade) Dose Ordered Sig/Stephany Route PRN Reason Start Time Stop Time Status Last Admin Dose Admin Acetaminophen (Tylenol) 650 mg Q6H PRN ORAL Mild Pain/Temp > 100.5 03/09/19 07:01 04/07/19 07:00 03/10/19 03:10 Albuterol/ Ipratropium (Albuterol/ Ipratropium) 3 ml Q4HRT PRN HHN Shortness of Breath 03/11/19 22:30 03/16/19 22:29 03/12/19 15:45 Albuterol/ Ipratropium (Albuterol/ Ipratropium) 3 ml Q6HRT HHN 03/14/19 19:00 03/19/19 18:59 03/15/19 07:28 Aspirin (ASA) 81 mg DAILY ORAL 03/09/19 09:00 04/07/19 08:59 03/11/19 09:39 Atorvastatin Calcium (Lipitor) 20 mg BEDTIME ORAL 03/09/19 21:00 04/07/19 20:59 03/10/19 20:42 Carvedilol (Coreg) 3.125 mg EVERY 12 HOURS ORAL 03/10/19 21:00 04/09/19 20:59 03/11/19 09:36 Cefepime HCl 1 gm/ Dextrose 55 ml @ 110 mls/hr Q24H IVPB 03/14/19 21:00 03/21/19 20:59 03/14/19 21:04 Clonidine HCl (Catapres Tab) 0.1 mg Q8H PRN SL For High Blood Pressure 03/11/19 20:00 04/10/19 19:59 Dextrose 1,000 ml @ 30 mls/hr Q24H IV 03/09/19 14:07 04/08/19 14:06 03/14/19 14:46 Dextrose (Dextrose 50%) 25 ml Q30M PRN IV Hypoglycemia 03/09/19 07:00 04/07/19 06:59 Dextrose (Dextrose 50%) 50 ml Q30M PRN IV Hypoglycemia 03/09/19 07:00 04/07/19 06:59 Docusate Sodium (Colace) 100 mg TID ORAL 03/09/19 09:00 04/07/19 08:59 03/11/19 09:37 Ergocalciferol (Drisdol) 50,000 intlu ONCE A WEEK ORAL 03/15/19 18:00 04/07/19 17:59 Finasteride (Proscar) 5 mg DAILY ORAL 03/09/19 09:00 04/07/19 08:59 03/11/19 09:39 Fluticasone Propionate (Flonase) 2 spray DAILY NASAL 03/09/19 09:00 04/07/19 08:59 03/15/19 09:36 Guaifenesin/ Codeine Phosphate (Robitussin with codeine) 5 ml Q4H PRN ORAL For Cough 03/09/19 07:00 04/07/19 06:59 03/10/19 03:09 Hydralazine HCl (Apresoline) 25 mg Q4H PRN ORAL bp over 160 syst 03/09/19 07:03 04/07/19 07:02 03/10/19 03:09 Lisinopril (ZestriL) 10 mg DAILY ORAL 03/11/19 09:00 04/10/19 08:59 03/11/19 09:36 Lorazepam (Ativan 2mg/ml 1ml) 0.25 mg Q6H PRN IV For Anxiety 03/12/19 12:30 03/18/19 19:59 Lorazepam (Ativan) 1 mg Q6H PRN ORAL For Anxiety 03/12/19 12:28 03/19/19 12:27 Nitroglycerin (Ntg) 1 patch Q24H TDERMAL 03/09/19 14:30 04/08/19 14:29 03/13/19 14:30 Ondansetron HCl (Zofran) 4 mg Q4H PRN IVP Nausea & Vomiting 03/09/19 07:03 04/08/19 07:02 03/10/19 03:09 Pantoprazole (Protonix) 40 mg BID ORAL 03/09/19 09:00 04/07/19 06:59 03/11/19 09:36 Risperidone (RisperDAL) 1 mg BEDTIME ORAL 03/12/19 21:00 04/11/19 20:59 Sevelamer Carbonate (Renvela) 1,600 mg THREE TIMES A DAY ORAL 03/10/19 13:00 04/08/19 12:59 03/11/19 09:36 Tamsulosin HCl (Flomax) 0.4 mg BEDTIME ORAL 03/09/19 21:00 04/07/19 20:59 03/10/19 20:42 Boyd Tee MD Mar 15, 2019 11:01
--- NOTE | 2019-03-15 11:09 | Nephrology Progress Note ---
Assessment/Plan Problem List: (1) ESRD (end stage renal disease) on dialysis (2) Cardiomyopathy (3) NSTEMI (non-ST elevated myocardial infarction) Assessment: Troponin lowering (4) Acute respiratory failure with hypoxia and hypercapnia Assessment ESRD- HTN Anemia DM CAD- Cardiomyopathy s/p SEPSIS [place] Plan recent 2D echo 40% EjFx Pulm Toilet and support HD 03/14 next 03/17 unless need earlier Keep BP in check - Hold bp meds for now due to low BP Albumin bolus ASA Nitrate per consultants per orders Subjective ROS Limited/Unobtainable: No Constitutional: Reports: malaise, weakness Objective Objective Last 24 Hour Vital Signs Date Time Temp Pulse Resp B/P (MAP) Pulse Ox O2 Delivery O2 Flow Rate FiO2 03/15/19 08:30 96 Venturi Mask 10.0 45 03/15/19 08:00 Simple Mask 10.0 03/15/19 08:00 96.4 71 20 101/41 (61) 97 03/15/19 07:40 71 03/15/19 07:38 69 20 100 Venturi Mask 14.0 55 70 20 95 03/15/19 04:00 67 03/15/19 04:00 Simple Mask 10.0 03/15/19 04:00 97.0 68 20 110/41 (64) 98 03/15/19 01:03 66 18 100 Venturi Mask 14.0 55 64 18 98 03/15/19 00:00 97.9 79 20 127/62 (83) 96 03/15/19 00:00 Simple Mask 10.0 03/14/19 23:52 75 03/14/19 20:00 Simple Mask 10.0 03/14/19 20:00 71 03/14/19 20:00 96.4 77 20 114/46 (68) 93 03/14/19 19:03 62 20 96 Venturi Mask 6.0 35 03/14/19 19:02 99 Venturi Mask 6.0 35 03/14/19 18:56 65 18 99 Venturi Mask 6.0 35 62 18 96 03/14/19 18:00 99 Simple Mask 8.0 52 03/14/19 16:00 Simple Mask 10.0 03/14/19 16:00 96.7 60 22 97/55 (69) 99 03/14/19 15:47 61 03/14/19 14:30 97/03/14/19 12:00 Simple Mask 10.0 03/14/19 12:00 96.6 62 22 97/61 (73) 99 03/14/19 11:25 63 Intake and Output 03/14/19 03/15/19 19:00 07:00 Intake Total 300 ml 3145.508 ml Output Total 3000 ml Balance 300 ml 145.508 ml Intake Oral 0 ml 0 ml IV Total 300 ml 145.508 ml Hemodialysis 3000 ml Output Hemodialysis UF 3000 ml Laboratory Tests 03/14/19 18:35: White Blood Count 4.9, Red Blood Count 3.11L, Hemoglobin 9.8L, Hematocrit 30.7L , Mean Corpuscular Volume 99, Mean Corpuscular Hemoglobin 31.5H, Mean Corpuscular Hemoglobin Concent 31.9L, Red Cell Distribution Width 14.7, Platelet Count 80L, Mean Platelet Volume 8.4, Neutrophils (%) (Auto) 89.1H, Lymphocytes (%) (Auto) 7.3L, Monocytes (%) (Auto) 3.2, Eosinophils (%) (Auto) 0.2, Basophils (%) (Auto) 0.2, Activated Partial Thromboplast Time 36H 03/15/19 03:30: White Blood Count 5.9, Red Blood Count 2.83L, Hemoglobin 9.0L, Hematocrit 27.9L , Mean Corpuscular Volume 99, Mean Corpuscular Hemoglobin 31.7H, Mean Corpuscular Hemoglobin Concent 32.2, Red Cell Distribution Width 15.0H, Platelet Count 67L, Mean Platelet Volume 7.7, Neutrophils (%) (Auto) , Lymphocytes (%) (Auto) , Monocytes (%) (Auto) , Eosinophils (%) (Auto) , Basophils (%) (Auto) , Activated Partial Thromboplast Time 48H, Differential Total Cells Counted 100, Neutrophils % (Manual) 77H, Lymphocytes % (Manual) 7L, Monocytes % (Manual) 3, Eosinophils % (Manual) 0, Basophils % (Manual) 0, Band Neutrophils 13H, Platelet Estimate DecreasedL, Platelet Morphology Normal, Hypochromasia 1+, Anisocytosis 1+, Sodium Level 145, Potassium Level 3.2L, Chloride Level 104, Carbon Dioxide Level 35H, Anion Gap 6, Blood Urea Nitrogen 42H, Creatinine 5.1H, Estimat Glomerular Filtration Rate , Glucose Level 87, Uric Acid 4.8, Calcium Level 8.3L, Phosphorus Level 4.8, Magnesium Level 2.3, Total Bilirubin 0.8, Aspartate Amino Transf (AST/SGOT) 71H, Alanine Aminotransferase (ALT/SGPT) 35, Alkaline Phosphatase 150H, C-Reactive Protein, Quantitative 30.1H, Pro-B-Type Natriuretic Peptide > 63113D, Total Protein 6.4, Albumin 2.5L, Globulin 3.9, Albumin/Globulin Ratio 0.6L Height (Feet): 5 Height (Inches): 5.00 Weight (Pounds): 135 General Appearance: lethargic Cardiovascular: normal rate Respiratory/Chest: decreased breath sounds Abdomen: distended Objective no change Mikey Brandt MD Mar 15, 2019 11:09
--- NOTE | 2019-03-15 11:18 | Diagnostic Imaging Report ---
EXAM: XR Abdomen, 1 Views CLINICAL HISTORY: NGT TECHNIQUE: Frontal view of the abdomen/pelvis. COMPARISON: Chest x-ray 03/12/19 FINDINGS: Lower thorax: Bilateral diffuse airspace opacities and rounded left mid lung opacity similar to prior study. Gastrointestinal tract: Hyperdense fecal material in the colon likely residual contrast from recent study. No dilation. Bones/joints: Unremarkable. Soft tissues: Surgical clips right upper quadrant of the abdomen. Tubes, lines and devices: NG tube tip in the stomach, good position. IMPRESSION: 1. NG tube tip in the stomach, good position. 2. Bilateral diffuse airspace opacities and rounded left mid lung opacity similar to prior study.
--- NOTE | 2019-03-15 13:35 | General Progress Note ---
Assessment/Plan Problem List: (1) Hypoglycemia ICD Codes: E16.2 - Hypoglycemia, unspecified SNOMED: 181645647 (2) Hemodialysis disequilibrium syndrome ICD Codes: E87.8 - Other disorders of electrolyte and fluid balance, not elsewhere classified SNOMED: 48730399 (3) NSTEMI (non-ST elevated myocardial infarction) ICD Codes: I21.4 - Non-ST elevation (NSTEMI) myocardial infarction SNOMED: 56933320 (4) ESRD (end stage renal disease) on dialysis ICD Codes: N18.6 - End stage renal disease; Z99.2 - Dependence on renal dialysis SNOMED: 338532025 (5) Diabetes ICD Codes: E11.9 - Type 2 diabetes mellitus without complications SNOMED: 01916441 (6) vascular dementia Assessment/Plan: glucose values are stable w/o hypoglycemia no need for diabetic medications continue to monitor glucose hypoglycemia protocol in order Subjective ROS Limited/Unobtainable: Yes Allergies: Coded Allergies: No Known Allergies (Unverified , 05/25/13) Subjective events noted glucose values low normal without hypoglycemia Item Value Date Time Bedside Blood Glucose 70 mg/dl 03/15/19 1159 Bedside Blood Glucose 81 mg/dl 03/15/19 0619 Bedside Blood Glucose 86 mg/dl 03/14/19 2100 Bedside Blood Glucose 103 mg/dl 03/14/19 1630 Bedside Blood Glucose 88 mg/dl 03/14/19 1130 Objective Last 24 Hour Vital Signs Date Time Temp Pulse Resp B/P (MAP) Pulse Ox O2 Delivery O2 Flow Rate FiO2 03/15/19 12:00 Simple Mask 10.0 03/15/19 11:50 96.4 69 20 93/39 (57) 97 03/15/19 08:30 96 Venturi Mask 10.0 45 03/15/19 08:00 Simple Mask 10.0 03/15/19 08:00 96.4 71 20 101/41 (61) 97 03/15/19 07:40 71 03/15/19 07:38 69 20 100 Venturi Mask 14.0 55 70 20 95 03/15/19 04:00 67 03/15/19 04:00 Simple Mask 10.0 03/15/19 04:00 97.0 68 20 110/41 (64) 98 03/15/19 01:03 66 18 100 Venturi Mask 14.0 55 64 18 98 03/15/19 00:00 97.9 79 20 127/62 (83) 96 03/15/19 00:00 Simple Mask 10.0 03/14/19 23:52 75 03/14/19 20:00 Simple Mask 10.0 03/14/19 20:00 71 03/14/19 20:00 96.4 77 20 114/46 (68) 93 03/14/19 19:03 62 20 96 Venturi Mask 6.0 35 03/14/19 19:02 99 Venturi Mask 6.0 35 03/14/19 18:56 65 18 99 Venturi Mask 6.0 35 62 18 96 03/14/19 18:00 99 Simple Mask 8.0 52 03/14/19 16:00 Simple Mask 10.0 03/14/19 16:00 96.7 60 22 97/55 (69) 99 03/14/19 15:47 61 03/14/19 14:30 97/61 Intake and Output 03/14/19 03/15/19 19:00 07:00 Intake Total 300 ml 3145.508 ml Output Total 3000 ml Balance 300 ml 145.508 ml Intake Oral 0 ml 0 ml IV Total 300 ml 145.508 ml Hemodialysis 3000 ml Output Hemodialysis UF 3000 ml Laboratory Tests 03/14/19 18:35: White Blood Count 4.9, Red Blood Count 3.11L, Hemoglobin 9.8L, Hematocrit 30.7L , Mean Corpuscular Volume 99, Mean Corpuscular Hemoglobin 31.5H, Mean Corpuscular Hemoglobin Concent 31.9L, Red Cell Distribution Width 14.7, Platelet Count 80L, Mean Platelet Volume 8.4, Neutrophils (%) (Auto) 89.1H, Lymphocytes (%) (Auto) 7.3L, Monocytes (%) (Auto) 3.2, Eosinophils (%) (Auto) 0.2, Basophils (%) (Auto) 0.2, Activated Partial Thromboplast Time 36H 03/15/19 03:30: White Blood Count 5.9, Red Blood Count 2.83L, Hemoglobin 9.0L, Hematocrit 27.9L , Mean Corpuscular Volume 99, Mean Corpuscular Hemoglobin 31.7H, Mean Corpuscular Hemoglobin Concent 32.2, Red Cell Distribution Width 15.0H, Platelet Count 67L, Mean Platelet Volume 7.7, Neutrophils (%) (Auto) , Lymphocytes (%) (Auto) , Monocytes (%) (Auto) , Eosinophils (%) (Auto) , Basophils (%) (Auto) , Activated Partial Thromboplast Time 48H, Differential Total Cells Counted 100, Neutrophils % (Manual) 77H, Lymphocytes % (Manual) 7L, Monocytes % (Manual) 3, Eosinophils % (Manual) 0, Basophils % (Manual) 0, Band Neutrophils 13H, Platelet Estimate DecreasedL, Platelet Morphology Normal, Hypochromasia 1+, Anisocytosis 1+, Sodium Level 145, Potassium Level 3.2L, Chloride Level 104, Carbon Dioxide Level 35H, Anion Gap 6, Blood Urea Nitrogen 42H, Creatinine 5.1H, Estimat Glomerular Filtration Rate , Glucose Level 87, Uric Acid 4.8, Calcium Level 8.3L, Phosphorus Level 4.8, Magnesium Level 2.3, Total Bilirubin 0.8, Aspartate Amino Transf (AST/SGOT) 71H, Alanine Aminotransferase (ALT/SGPT) 35, Alkaline Phosphatase 150H, C-Reactive Protein, Quantitative 30.1H, Pro-B-Type Natriuretic Peptide > 89769M, Total Protein 6.4, Albumin 2.5L, Globulin 3.9, Albumin/Globulin Ratio 0.6L Height (Feet): 5 Height (Inches): 5.00 Weight (Pounds): 135 General Appearance: no apparent distress Neck: normal alignment Cardiovascular: normal rate Respiratory/Chest: decreased breath sounds Abdomen: normal bowel sounds Objective Current Medications Medications (Trade) Dose Ordered Sig/Stephany Route PRN Reason Start Time Stop Time Status Last Admin Dose Admin Acetaminophen (Tylenol) 650 mg Q6H PRN ORAL Mild Pain/Temp > 100.5 03/09/19 07:01 04/07/19 07:00 03/10/19 03:10 Albuterol/ Ipratropium (Albuterol/ Ipratropium) 3 ml Q4HRT PRN HHN Shortness of Breath 03/11/19 22:30 03/16/19 22:29 03/12/19 15:45 Albuterol/ Ipratropium (Albuterol/ Ipratropium) 3 ml Q6HRT HHN 03/14/19 19:00 03/19/19 18:59 03/15/19 07:28 Aspirin (ASA) 81 mg DAILY ORAL 03/09/19 09:00 04/07/19 08:59 03/11/19 09:39 Atorvastatin Calcium (Lipitor) 20 mg BEDTIME ORAL 03/09/19 21:00 04/07/19 20:59 03/10/19 20:42 Carvedilol (Coreg) 3.125 mg EVERY 12 HOURS ORAL 03/10/19 21:00 04/09/19 20:59 03/11/19 09:36 Cefepime HCl 1 gm/ Dextrose 55 ml @ 110 mls/hr Q24H IVPB 03/14/19 21:00 03/21/19 20:59 03/14/19 21:04 Clonidine HCl (Catapres Tab) 0.1 mg Q8H PRN SL For High Blood Pressure 03/11/19 20:00 04/10/19 19:59 Dextrose 1,000 ml @ 30 mls/hr Q24H IV 03/09/19 14:07 04/08/19 14:06 03/14/19 14:46 Dextrose (Dextrose 50%) 25 ml Q30M PRN IV Hypoglycemia 03/09/19 07:00 04/07/19 06:59 Dextrose (Dextrose 50%) 50 ml Q30M PRN IV Hypoglycemia 03/09/19 07:00 04/07/19 06:59 Docusate Sodium (Colace) 100 mg TID ORAL 03/09/19 09:00 04/07/19 08:59 03/11/19 09:37 Ergocalciferol (Drisdol) 50,000 intlu ONCE A WEEK ORAL 03/15/19 18:00 04/07/19 17:59 Finasteride (Proscar) 5 mg DAILY ORAL 03/09/19 09:00 04/07/19 08:59 03/11/19 09:39 Fluticasone Propionate (Flonase) 2 spray DAILY NASAL 03/09/19 09:00 04/07/19 08:59 03/15/19 09:36 Guaifenesin/ Codeine Phosphate (Robitussin with codeine) 5 ml Q4H PRN ORAL For Cough 03/09/19 07:00 04/07/19 06:59 03/10/19 03:09 Hydralazine HCl (Apresoline) 25 mg Q4H PRN ORAL bp over 160 syst 03/09/19 07:03 04/07/19 07:02 03/10/19 03:09 Lisinopril (ZestriL) 10 mg DAILY ORAL 03/11/19 09:00 04/10/19 08:59 03/11/19 09:36 Lorazepam (Ativan 2mg/ml 1ml) 0.25 mg Q6H PRN IV For Anxiety 03/12/19 12:30 03/18/19 19:59 Lorazepam (Ativan) 1 mg Q6H PRN ORAL For Anxiety 03/12/19 12:28 03/19/19 12:27 Nitroglycerin (Ntg) 1 patch Q24H TDERMAL 03/09/19 14:30 04/08/19 14:29 03/13/19 14:30 Ondansetron HCl (Zofran) 4 mg Q4H PRN IVP Nausea & Vomiting 03/09/19 07:03 04/08/19 07:02 03/10/19 03:09 Pantoprazole (Protonix) 40 mg BID ORAL 03/09/19 09:00 04/07/19 06:59 03/11/19 09:36 Risperidone (RisperDAL) 1 mg BEDTIME ORAL 03/12/19 21:00 04/11/19 20:59 Sevelamer Carbonate (Renvela) 1,600 mg THREE TIMES A DAY ORAL 03/10/19 13:00 04/08/19 12:59 03/11/19 09:36 Tamsulosin HCl (Flomax) 0.4 mg BEDTIME ORAL 03/09/19 21:00 04/07/19 20:59 03/10/19 20:42 Shawn Saldana MD Mar 15, 2019 13:35
[2019-03-15] MEDS: Nitroglycerin Patch 0.4mg TDERMAL SCH (14:30)
--- NOTE | 2019-03-15 15:08 | Cardiac Electrophysiology PN ---
Assessment/Plan Assessment/Plan 1. Troponin elevation, could be due to renal failure. Troponin peak is however at 3.5 that is coming down to 1.88. Confused in restraints. No CP or SOB. EKG no acute changes. EF 40-45% On aspirin, Coreg 3.125 bid and Lipitor. Will treat medically at this time 2. Cardiomyopathy with EF of 40%. BNP is more than 35,000. Echo on 02/02/2019 showed EF of 55% to 60%, repeat echocardiogram showed EF 40%. On Coreg, Lisinopril 10 daily and HD 3. On Eliquis for CVA and PVD. No Fib or DVT or PE 4. End-stage renal disease, on hemodialysis. 5. Lactic acidosis. 6. Hyperlipidemia, on Lipitor. 7. Dysphagia. Plan for EGD/PEG when off BIPAP 8. Respiratory failure on BIPAP DW RN Subjective Subjective EGD/ PEG rescheduled for Sunday but still on BIPAP Objective Last 24 Hour Vital Signs Date Time Temp Pulse Resp B/P (MAP) Pulse Ox O2 Delivery O2 Flow Rate FiO2 03/15/19 14:30 93/39 03/15/19 13:46 68 24 99 Facial 35 Bi-Pap 03/15/19 12:00 Simple Mask 10.0 03/15/19 11:50 96.4 69 20 93/39 (57) 97 03/15/19 08:30 96 Venturi Mask 10.0 45 03/15/19 08:00 Simple Mask 10.0 03/15/19 08:00 96.4 71 20 101/41 (61) 97 03/15/19 07:40 71 03/15/19 07:38 69 20 100 Venturi Mask 14.0 55 70 20 95 03/15/19 04:00 67 03/15/19 04:00 Simple Mask 10.0 03/15/19 04:00 97.0 68 20 110/41 (64) 98 03/15/19 01:03 66 18 100 Venturi Mask 14.0 55 64 18 98 03/15/19 00:00 97.9 79 20 127/62 (83) 96 03/15/19 00:00 Simple Mask 10.0 03/14/19 23:52 75 03/14/19 20:00 Simple Mask 10.0 03/14/19 20:00 71 03/14/19 20:00 96.4 77 20 114/46 (68) 93 03/14/19 19:03 62 20 96 Venturi Mask 6.0 35 03/14/19 19:02 99 Venturi Mask 6.0 35 03/14/19 18:56 65 18 99 Venturi Mask 6.0 35 62 18 96 03/14/19 18:00 99 Simple Mask 8.0 52 03/14/19 16:00 Simple Mask 10.0 03/14/19 16:00 96.7 60 22 97/55 (69) 99 03/14/19 15:47 61 Intake and Output 03/14/19 03/15/19 19:00 07:00 Intake Total 300 ml 3145.508 ml Output Total 3000 ml Balance 300 ml 145.508 ml Intake Oral 0 ml 0 ml IV Total 300 ml 145.508 ml Hemodialysis 3000 ml Output Hemodialysis UF 3000 ml Laboratory Tests Test 03/14/19 18:35 03/15/19 03:30 White Blood Count 4.9 K/UL (4.8-10.8) 5.9 K/UL (4.8-10.8) Red Blood Count 3.11 M/UL (4.70-6.10) L 2.83 M/UL (4.70-6.10) L Hemoglobin 9.8 G/DL (14.2-18.0) L 9.0 G/DL (14.2-18.0) L Hematocrit 30.7 % (42.0-52.0) L 27.9 % (42.0-52.0) L Mean Corpuscular Volume 99 FL (80-99) 99 FL (80-99) Mean Corpuscular Hemoglobin 31.5 PG (27.0-31.0) H 31.7 PG (27.0-31.0) H Mean Corpuscular Hemoglobin Concent 31.9 G/DL (32.0-36.0) L 32.2 G/DL (32.0-36.0) Red Cell Distribution Width 14.7 % (11.6-14.8) 15.0 % (11.6-14.8) H Platelet Count 80 K/UL (150-450) L 67 K/UL (150-450) L Mean Platelet Volume 8.4 FL (6.5-10.1) 7.7 FL (6.5-10.1) Neutrophils (%) (Auto) 89.1 % (45.0-75.0) H % (45.0-75.0) Lymphocytes (%) (Auto) 7.3 % (20.0-45.0) L % (20.0-45.0) Monocytes (%) (Auto) 3.2 % (1.0-10.0) % (1.0-10.0) Eosinophils (%) (Auto) 0.2 % (0.0-3.0) % (0.0-3.0) Basophils (%) (Auto) 0.2 % (0.0-2.0) % (0.0-2.0) Activated Partial Thromboplast Time 36 SEC (23-33) H 48 SEC (23-33) H Differential Total Cells Counted 100 Neutrophils % (Manual) 77 % (45-75) H Lymphocytes % (Manual) 7 % (20-45) L Monocytes % (Manual) 3 % (1-10) Eosinophils % (Manual) 0 % (0-3) Basophils % (Manual) 0 % (0-2) Band Neutrophils 13 % (0-8) H Platelet Estimate Decreased L Platelet Morphology Normal Hypochromasia 1+ Anisocytosis 1+ Sodium Level 145 MMOL/L (136-145) Potassium Level 3.2 MMOL/L (3.5-5.1) L Chloride Level 104 MMOL/L (98-107) Carbon Dioxide Level 35 MMOL/L (21-32) H Anion Gap 6 mmol/L (5-15) Blood Urea Nitrogen 42 mg/dL (7-18) H Creatinine 5.1 MG/DL (0.55-1.30) H Estimat Glomerular Filtration Rate mL/min (>60) Glucose Level 87 MG/DL (74-106) Uric Acid 4.8 MG/DL (2.6-7.2) Calcium Level 8.3 MG/DL (8.5-10.1) L Phosphorus Level 4.8 MG/DL (2.5-4.9) Magnesium Level 2.3 MG/DL (1.8-2.4) Total Bilirubin 0.8 MG/DL (0.2-1.0) Aspartate Amino Transf (AST/SGOT) 71 U/L (15-37) H Alanine Aminotransferase (ALT/SGPT) 35 U/L (12-78) Alkaline Phosphatase 150 U/L (46-116) H C-Reactive Protein, Quantitative 30.1 mg/dL (0.00-0.90) H Pro-B-Type Natriuretic Peptide > 19780 pg/mL (0-125) H Total Protein 6.4 G/DL (6.4-8.2) Albumin 2.5 G/DL (3.4-5.0) L Globulin 3.9 g/dL Albumin/Globulin Ratio 0.6 (1.0-2.7) L Objective HEAD AND NECK: No JVD. LUNGS: Clear. CARDIOVASCULAR: Regular S1 and S2 with no gallop or murmur. ABDOMEN: Soft. EXTREMITIES: No pitting edema. Dialysis access in the left arm. Dariel Corcoran MD Mar 15, 2019 15:08
[2019-03-15] MEDS: Dextrose 10% 1,000 ML IV SCH (15:12)
--- NOTE | 2019-03-15 15:15 | NUR ---
P.T.NOTES ADDENDUM S/P: APPROACHED PATIENT IN THE PM. PATIENT FOUND LYING IN BED IN A SEMI-EPSTEIN'S POSITION, ON BIPAP MACHINE. WILL F/U NEXT TX. TIME. RN AWARE. UMBERTO.
--- NOTE | 2019-03-15 15:30 | General Progress Note ---
Assessment/Plan Assessment/Plan: respiratory failure aspiration risk NSTEMI renal failure diabeters persistent hypoglycemia ho pneumonia ho elevated lactic acid htn hld off bipap aggressive pulmonaryhygiene, followed by Dr Adryan nichole noted , pos aspirate keep NPOconsider GTube placment enrique Capone ng placement for now eliquis held aspiration precutions\pulmonary hygiene echo noted, decreaed EF cards fup dw Dr Corcoran considering cath when off abx endo eval appreciated all diabetic meds held dialysis dependint check cultures abx per ID dw Dr Burk, on eliquis due to previous stroke paf dvt and ulcer prophylaxis Subjective Allergies: Coded Allergies: No Known Allergies (Unverified , 05/25/13) Subjective seen in am now off bipap dw Dr Webber , patient to get ng placment for now Objective Last 24 Hour Vital Signs Date Time Temp Pulse Resp B/P (MAP) Pulse Ox O2 Delivery O2 Flow Rate FiO2 03/15/19 14:30 93/39 03/15/19 13:46 68 24 99 Facial 35 Bi-Pap 03/15/19 12:00 70 03/15/19 12:00 Simple Mask 10.0 03/15/19 11:50 96.4 69 20 93/39 (57) 97 03/15/19 08:30 96 Venturi Mask 10.0 45 03/15/19 08:00 Simple Mask 10.0 03/15/19 08:00 96.4 71 20 101/41 (61) 97 03/15/19 07:40 71 03/15/19 07:38 69 20 100 Venturi Mask 14.0 55 70 20 95 03/15/19 04:00 67 03/15/19 04:00 Simple Mask 10.0 03/15/19 04:00 97.0 68 20 110/41 (64) 98 03/15/19 01:03 66 18 100 Venturi Mask 14.0 55 64 18 98 03/15/19 00:00 97.9 79 20 127/62 (83) 96 03/15/19 00:00 Simple Mask 10.0 03/14/19 23:52 75 03/14/19 20:00 Simple Mask 10.0 03/14/19 20:00 71 03/14/19 20:00 96.4 77 20 114/46 (68) 93 03/14/19 19:03 62 20 96 Venturi Mask 6.0 35 03/14/19 19:02 99 Venturi Mask 6.0 35 03/14/19 18:56 65 18 99 Venturi Mask 6.0 35 62 18 96 03/14/19 18:00 99 Simple Mask 8.0 52 03/14/19 16:00 Simple Mask 10.0 03/14/19 16:00 96.7 60 22 97/55 (69) 99 03/14/19 15:47 61 Intake and Output 03/14/19 03/15/19 19:00 07:00 Intake Total 300 ml 3145.508 ml Output Total 3000 ml Balance 300 ml 145.508 ml Intake Oral 0 ml 0 ml IV Total 300 ml 145.508 ml Hemodialysis 3000 ml Output Hemodialysis UF 3000 ml Laboratory Tests 03/14/19 18:35: White Blood Count 4.9, Red Blood Count 3.11L, Hemoglobin 9.8L, Hematocrit 30.7L , Mean Corpuscular Volume 99, Mean Corpuscular Hemoglobin 31.5H, Mean Corpuscular Hemoglobin Concent 31.9L, Red Cell Distribution Width 14.7, Platelet Count 80L, Mean Platelet Volume 8.4, Neutrophils (%) (Auto) 89.1H, Lymphocytes (%) (Auto) 7.3L, Monocytes (%) (Auto) 3.2, Eosinophils (%) (Auto) 0.2, Basophils (%) (Auto) 0.2, Activated Partial Thromboplast Time 36H 03/15/19 03:30: White Blood Count 5.9, Red Blood Count 2.83L, Hemoglobin 9.0L, Hematocrit 27.9L , Mean Corpuscular Volume 99, Mean Corpuscular Hemoglobin 31.7H, Mean Corpuscular Hemoglobin Concent 32.2, Red Cell Distribution Width 15.0H, Platelet Count 67L, Mean Platelet Volume 7.7, Neutrophils (%) (Auto) , Lymphocytes (%) (Auto) , Monocytes (%) (Auto) , Eosinophils (%) (Auto) , Basophils (%) (Auto) , Activated Partial Thromboplast Time 48H, Differential Total Cells Counted 100, Neutrophils % (Manual) 77H, Lymphocytes % (Manual) 7L, Monocytes % (Manual) 3, Eosinophils % (Manual) 0, Basophils % (Manual) 0, Band Neutrophils 13H, Platelet Estimate DecreasedL, Platelet Morphology Normal, Hypochromasia 1+, Anisocytosis 1+, Sodium Level 145, Potassium Level 3.2L, Chloride Level 104, Carbon Dioxide Level 35H, Anion Gap 6, Blood Urea Nitrogen 42H, Creatinine 5.1H, Estimat Glomerular Filtration Rate , Glucose Level 87, Uric Acid 4.8, Calcium Level 8.3L, Phosphorus Level 4.8, Magnesium Level 2.3, Total Bilirubin 0.8, Aspartate Amino Transf (AST/SGOT) 71H, Alanine Aminotransferase (ALT/SGPT) 35, Alkaline Phosphatase 150H, C-Reactive Protein, Quantitative 30.1H, Pro-B-Type Natriuretic Peptide > 55782H, Total Protein 6.4, Albumin 2.5L, Globulin 3.9, Albumin/Globulin Ratio 0.6L Height (Feet): 5 Height (Inches): 5.00 Weight (Pounds): 135 General Appearance: WD/WN, no apparent distress Neck: supple Cardiovascular: normal rate Respiratory/Chest: rhonchi - bilaterally Abdomen: soft Viktor García MD Mar 15, 2019 15:30
--- NOTE | 2019-03-15 16:45 | General Progress Note ---
Assessment/Plan Assessment/Plan: Assessment - Failed swallow, aspiration risk - resp failure - still too high a risk for EGD - NSTEMI - thrombocytopenia - PNA - CAD - ESRD, HD - OBS - Poor prognosis Recommendations - Begin NGT feeds - follow labs - follow resp parameters closely - PEG postponed until more stable Subjective Allergies: Coded Allergies: No Known Allergies (Unverified , 05/25/13) Subjective Above noted seen this am on 100% O2 desaturates quickly off the mask d/w PMD NGT placed at bedside by GI also called by RN in am re falling platelets patient on IV heparin and ASA Heparin d/c'd this am Objective Last 24 Hour Vital Signs Date Time Temp Pulse Resp B/P (MAP) Pulse Ox O2 Delivery O2 Flow Rate FiO2 03/15/19 16:00 Simple Mask 10.0 03/15/19 16:00 96.4 66 20 92/44 (60) 100 03/15/19 16:00 69 03/15/19 15:29 66 27 100 Facial 35 03/15/19 14:30 93/39 03/15/19 13:46 68 24 99 Facial 35 Bi-Pap 03/15/19 13:20 69 16 92 03/15/19 12:00 70 03/15/19 12:00 Simple Mask 10.0 03/15/19 11:50 96.4 69 20 93/39 (57) 97 03/15/19 08:30 96 Venturi Mask 10.0 45 03/15/19 08:00 Simple Mask 10.0 03/15/19 08:00 96.4 71 20 101/41 (61) 97 03/15/19 07:40 71 03/15/19 07:38 69 20 100 Venturi Mask 14.0 55 70 20 95 03/15/19 04:00 67 03/15/19 04:00 Simple Mask 10.0 03/15/19 04:00 97.0 68 20 110/41 (64) 98 03/15/19 01:03 66 18 100 Venturi Mask 14.0 55 64 18 98 03/15/19 00:00 97.9 79 20 127/62 (83) 96 03/15/19 00:00 Simple Mask 10.0 03/14/19 23:52 75 03/14/19 20:00 Simple Mask 10.0 03/14/19 20:00 71 03/14/19 20:00 96.4 77 20 114/46 (68) 93 03/14/19 19:03 62 20 96 Venturi Mask 6.0 35 03/14/19 19:02 99 Venturi Mask 6.0 35 03/14/19 18:56 65 18 99 Venturi Mask 6.0 35 62 18 96 03/14/19 18:00 99 Simple Mask 8.0 52 Intake and Output 03/14/19 03/15/19 19:00 07:00 Intake Total 300 ml 3145.508 ml Output Total 3000 ml Balance 300 ml 145.508 ml Intake Oral 0 ml 0 ml IV Total 300 ml 145.508 ml Hemodialysis 3000 ml Output Hemodialysis UF 3000 ml Laboratory Tests 03/14/19 18:35: White Blood Count 4.9, Red Blood Count 3.11L, Hemoglobin 9.8L, Hematocrit 30.7L , Mean Corpuscular Volume 99, Mean Corpuscular Hemoglobin 31.5H, Mean Corpuscular Hemoglobin Concent 31.9L, Red Cell Distribution Width 14.7, Platelet Count 80L, Mean Platelet Volume 8.4, Neutrophils (%) (Auto) 89.1H, Lymphocytes (%) (Auto) 7.3L, Monocytes (%) (Auto) 3.2, Eosinophils (%) (Auto) 0.2, Basophils (%) (Auto) 0.2, Activated Partial Thromboplast Time 36H 03/15/19 03:30: White Blood Count 5.9, Red Blood Count 2.83L, Hemoglobin 9.0L, Hematocrit 27.9L , Mean Corpuscular Volume 99, Mean Corpuscular Hemoglobin 31.7H, Mean Corpuscular Hemoglobin Concent 32.2, Red Cell Distribution Width 15.0H, Platelet Count 67L, Mean Platelet Volume 7.7, Neutrophils (%) (Auto) , Lymphocytes (%) (Auto) , Monocytes (%) (Auto) , Eosinophils (%) (Auto) , Basophils (%) (Auto) , Activated Partial Thromboplast Time 48H, Differential Total Cells Counted 100, Neutrophils % (Manual) 77H, Lymphocytes % (Manual) 7L, Monocytes % (Manual) 3, Eosinophils % (Manual) 0, Basophils % (Manual) 0, Band Neutrophils 13H, Platelet Estimate DecreasedL, Platelet Morphology Normal, Hypochromasia 1+, Anisocytosis 1+, Sodium Level 145, Potassium Level 3.2L, Chloride Level 104, Carbon Dioxide Level 35H, Anion Gap 6, Blood Urea Nitrogen 42H, Creatinine 5.1H, Estimat Glomerular Filtration Rate , Glucose Level 87, Uric Acid 4.8, Calcium Level 8.3L, Phosphorus Level 4.8, Magnesium Level 2.3, Total Bilirubin 0.8, Aspartate Amino Transf (AST/SGOT) 71H, Alanine Aminotransferase (ALT/SGPT) 35, Alkaline Phosphatase 150H, C-Reactive Protein, Quantitative 30.1H, Pro-B-Type Natriuretic Peptide > 11351L, Total Protein 6.4, Albumin 2.5L, Globulin 3.9, Albumin/Globulin Ratio 0.6L Height (Feet): 5 Height (Inches): 5.00 Weight (Pounds): 135 Objective Elderly man NCAT supple Coarse carinechi RR Abd soft ND Neuro confused Mann Aguilar MD Mar 15, 2019 16:45
--- NOTE | 2019-03-15 17:15 | NUR ---
NURSE NOTES: called radiology for the result of kub stat. no results uploaded yet.will attempt agian later.
--- NOTE | 2019-03-15 17:29 | Diagnostic Imaging Report ---
EXAM: XR Abdomen, 1 Views CLINICAL HISTORY: NGT TECHNIQUE: Frontal view of the abdomen/pelvis . COMPARISON: Abdomen x-ray 03/15/19 1101 FINDINGS: Lower thorax: Continued bilateral lung airspace opacities are stable. Gastrointestinal tract: Retained contrast in the colon. No bowel obstruction. Bones/joints: Unremarkable. Soft tissues: Surgical clips right upper quadrant of the abdomen. Tubes, lines and devices: NG tube tip in the stomach. Proximal side- port at GE junction, may be advanced 5 cm. IMPRESSION: NG tube tip in the stomach. Proximal side-port at GE junction, may be advanced 5 cm. <MYCVCSECTION> Communications: 03/15/19 17:39 Verify Receipt with Nurse Verified receipt with MARIELA Monae on 03/15 17:39 (-08:00)
[2019-03-15] MEDS: Docusate 100mg/10ml Liq NG SCH (17:52)
[2019-03-15] MEDS: Pantoprazole Inj IVP SCH (17:52)
[2019-03-15] MEDS: Renvela 800mg Pkt NG SCH (17:52)
[2019-03-15] MEDS ORDERED: Vitamin D 50,000 units cap ORAL SCH (18:00)
--- NOTE | 2019-03-15 18:36 | Diagnostic Imaging Report ---
EXAM: XR Abdomen, 2 Views CLINICAL HISTORY: NGT TECHNIQUE: Frontal view of the abdomen/pelvis with upright view of the abdomen. COMPARISON: Abdominal radiography 03/15/19 performed at 15:22 hours FINDINGS: Lower thorax: Transesophageal catheter side port below the junction, tip at the distal stomach. Heterogeneous opacities at the left base may represent atelectasis, reactive versus aspiration. Other nonspecific bilateral lung interstitial disease. Intraperitoneal space: No free air. Gastrointestinal tract: Contrast material within nondistended colon. No small bowel obstruction. Organs: Prior cholecystectomy. Bones/joints: Unremarkable. Other findings: No concerning calcifications. IMPRESSION: 1. Interval advancement of transesophageal catheter, tip now at the distal stomach. 2. Heterogeneous opacities at the left base may represent atelectasis, reactive versus aspiration. Correlate clinically.
[2019-03-15] MEDS ORDERED: HydrALAZINE 25mg tab NG PRN (19:03)
--- NOTE | 2019-03-15 19:07 | NUR ---
RESPIRATORY NOTE: PT RECEIVED STABLE ON BIPAP. 10/10, RATE:14, 35%. ALARMS ON AND AUDIBLE. BIPAP PLUGGED INTO RED OUTLET. SPONGE TAPE SECURELY IN PLACE. NO FACIAL WOUNDS NOTED. NO RESPIRATORY DISTRESS NOTED AT THIS TIME. WILL CONTINUE TO MONITOR.
--- NOTE | 2019-03-15 19:20 | NUR ---
NURSE NOTES: received pt from Letha SIERRA., pt is confused and Macedonian speaker. no dysrhythmia reported from previous shift. Pt has NGT on Left nares. IV site Right AC and Right HAnd is intact, patent, and clean. pt is on Bipap 15/8 35% O2sat is at 99%. untied mittens on the pt. bed at the lowest position, alarmed, and locked. call light within reach. will continue to monitor pt with plan of care.
[2019-03-15] MEDS: Cefepime HCl 1 GM in D5W 55 ML IVPB SCH (21:04)
[2019-03-15] MEDS: Tamsulosin 0.4mg cap ORAL SCH (21:04)
[2019-03-15] MEDS: Atorvastatin 20mg tab NG SCH (21:04)
--- NOTE | 2019-03-15 21:05 | Pulmonology Progress Note ---
Assessment/Plan Assessment/Plan Assessment/Plan ASSESSMENT: The patient is an 83-year-old male with a history of prior CVA, end -stage renal disease, on dialysis, hypertension, hyperlipidemia, CAD, CVA, and BPH presenting with dizziness and [id number] DE. He is fairly stable from a respiratory standpoint. PROBLEM LIST: 1. Non ST-elevation myocardial infarction. 2. Recent pneumonia. 3. Dizziness. 4. End-stage renal disease, on dialysis. 5. CAD. 6. Hypertension. 7. Hyperlipidemia. 8. Anemia. 9. Diabetes. TREATMENT PLAN: 1. Optimize pulmonary hygiene/mobilize as tolerated. 2. Titrate O2 3. HHN's 4. Abx 5. Follow up Cardiology recommendations, medical management of non-STEMI. 6. Eliquis held for PEG, continue IVUH NGT in place now 7. Monitor volumes and renal function, dialysis per Renal. 8. PEG sunday if stable at this point might require intubation as he has been bipap dependent per nursing last 3 days 9. FC, continue to discuss GOC Subjective ROS Limited/Unobtainable: Yes Allergies: Coded Allergies: No Known Allergies (Unverified , 05/25/13) Subjective obtudned on bipap desaturated when NGt placed TV aound 300 on 10/10 sats 100 % on 35 FIO2 mild distress does not follow commands to start TF Objective Last 24 Hour Vital Signs Date Time Temp Pulse Resp B/P (MAP) Pulse Ox O2 Delivery O2 Flow Rate FiO2 03/15/19 21:00 60 100/45 03/15/19 20:39 65 19 100 Facial 35 03/15/19 20:00 97.0 66 18 111/41 (64) 100 03/15/19 19:07 65 19 99 Bi-Pap 35 03/15/19 19:07 65 19 99 Facial 35 64 24 100 Bi-Pap 03/15/19 19:07 99 Bi-Pap 35 03/15/19 17:16 65 18 100 Facial 35 03/15/19 16:00 Simple Mask 10.0 03/15/19 16:00 96.4 66 20 92/44 (60) 100 03/15/19 16:00 69 03/15/19 15:29 66 27 100 Facial 35 03/15/19 14:30 93/39 03/15/19 13:46 68 24 99 Facial 35 Bi-Pap 03/15/19 13:20 69 16 92 03/15/19 12:00 70 03/15/19 12:00 Simple Mask 10.0 03/15/19 11:50 96.4 69 20 93/39 (57) 97 03/15/19 08:30 96 Venturi Mask 10.0 45 03/15/19 08:00 Simple Mask 10.0 03/15/19 08:00 96.4 71 20 101/41 (61) 97 03/15/19 07:40 71 03/15/19 07:38 69 20 100 Venturi Mask 14.0 55 70 20 95 03/15/19 04:00 67 03/15/19 04:00 Simple Mask 10.0 03/15/19 04:00 97.0 68 20 110/41 (64) 98 03/15/19 01:03 66 18 100 Venturi Mask 14.0 55 64 18 98 03/15/19 00:00 97.9 79 20 127/62 (83) 96 03/15/19 00:00 Simple Mask 10.0 03/14/19 23:52 75 Intake and Output 03/14/19 03/15/19 19:00 07:00 Intake Total 300 ml 3145.508 ml Output Total 3000 ml Balance 300 ml 145.508 ml Intake Oral 0 ml 0 ml IV Total 300 ml 145.508 ml Hemodialysis 3000 ml Output Hemodialysis UF 3000 ml General Appearance: WD/WN HEENT: normocephalic Respiratory/Chest: rhonchi Cardiovascular: normal rate, regularly irregular, edema Abdomen: soft, non tender, no organomegaly Neurologic/Psychiatric: disoriented, unresponsiveness Laboratory Tests 03/15/19 03:30: White Blood Count 5.9, Red Blood Count 2.83L, Hemoglobin 9.0L, Hematocrit 27.9L , Mean Corpuscular Volume 99, Mean Corpuscular Hemoglobin 31.7H, Mean Corpuscular Hemoglobin Concent 32.2, Red Cell Distribution Width 15.0H, Platelet Count 67L, Mean Platelet Volume 7.7, Neutrophils (%) (Auto) , Lymphocytes (%) (Auto) , Monocytes (%) (Auto) , Eosinophils (%) (Auto) , Basophils (%) (Auto) , Differential Total Cells Counted 100, Neutrophils % ( Manual) 77H, Lymphocytes % (Manual) 7L, Monocytes % (Manual) 3, Eosinophils % ( Manual) 0, Basophils % (Manual) 0, Band Neutrophils 13H, Platelet Estimate DecreasedL, Platelet Morphology Normal, Hypochromasia 1+, Anisocytosis 1+, Activated Partial Thromboplast Time 48H, Sodium Level 145, Potassium Level 3.2L , Chloride Level 104, Carbon Dioxide Level 35H, Anion Gap 6, Blood Urea Nitrogen 42H, Creatinine 5.1H, Estimat Glomerular Filtration Rate , Glucose Level 87, Uric Acid 4.8, Calcium Level 8.3L, Phosphorus Level 4.8, Magnesium Level 2.3, Total Bilirubin 0.8, Aspartate Amino Transf (AST/SGOT) 71H, Alanine Aminotransferase (ALT/SGPT) 35, Alkaline Phosphatase 150H, C-Reactive Protein, Quantitative 30.1H, Pro-B-Type Natriuretic Peptide > 92674F, Total Protein 6.4, Albumin 2.5L, Globulin 3.9, Albumin/Globulin Ratio 0.6L Current Medications Medications (Trade) Dose Ordered Sig/Stephany Route PRN Reason Start Time Stop Time Status Last Admin Dose Admin Acetaminophen (Tylenol) 650 mg Q6H PRN ORAL Mild Pain/Temp > 100.5 03/09/19 07:01 04/07/19 07:00 03/10/19 03:10 Albuterol/ Ipratropium (Albuterol/ Ipratropium) 3 ml Q4HRT PRN HHN Shortness of Breath 03/11/19 22:30 03/16/19 22:29 03/12/19 15:45 Albuterol/ Ipratropium (Albuterol/ Ipratropium) 3 ml Q6HRT HHN 03/14/19 19:00 03/19/19 18:59 03/15/19 19:07 Aspirin (ASA) 81 mg DAILY NG 03/16/19 09:00 04/07/19 08:59 Atorvastatin Calcium (Lipitor) 20 mg BEDTIME NG 03/15/19 21:00 04/07/19 20:59 Carvedilol (Coreg) 3.125 mg EVERY 12 HOURS NG 03/15/19 21:00 04/09/19 20:59 Cefepime HCl 1 gm/ Dextrose 55 ml @ 110 mls/hr Q24H IVPB 03/14/19 21:00 03/21/19 20:59 03/14/19 21:04 Clonidine HCl (Catapres Tab) 0.1 mg Q8H PRN SL For High Blood Pressure 03/11/19 20:00 04/10/19 19:59 Dextrose 1,000 ml @ 30 mls/hr Q24H IV 03/09/19 14:07 04/08/19 14:06 03/15/19 15:12 Dextrose (Dextrose 50%) 25 ml Q30M PRN IV Hypoglycemia 03/09/19 07:00 04/07/19 06:59 Dextrose (Dextrose 50%) 50 ml Q30M PRN IV Hypoglycemia 03/09/19 07:00 04/07/19 06:59 Docusate Sodium (Colace) 100 mg THREE TIMES A DAY NG 03/15/19 18:00 04/14/19 17:59 Finasteride (Proscar) 5 mg DAILY ORAL 03/16/19 09:00 04/07/19 08:59 Fluticasone Propionate (Flonase) 2 spray DAILY NASAL 03/09/19 09:00 04/07/19 08:59 03/15/19 09:36 Guaifenesin/ Codeine Phosphate (Robitussin with codeine) 5 ml Q4H PRN ORAL For Cough 03/09/19 07:00 04/07/19 06:59 03/10/19 03:09 Hydralazine HCl (Apresoline) 25 mg Q4H PRN NG bp over 160 syst 03/15/19 19:03 04/07/19 07:02 Lisinopril (ZestriL) 10 mg DAILY NG 03/16/19 09:00 04/10/19 08:59 Lorazepam (Ativan 2mg/ml 1ml) 0.25 mg Q6H PRN IV For Anxiety 03/12/19 12:30 03/18/19 19:59 Lorazepam (Ativan) 1 mg Q6H PRN ORAL For Anxiety 03/12/19 12:28 03/19/19 12:27 Nitroglycerin (Ntg) 1 patch Q24H TDERMAL 03/09/19 14:30 04/08/19 14:29 03/13/19 14:30 Ondansetron HCl (Zofran) 4 mg Q4H PRN IVP Nausea & Vomiting 03/09/19 07:03 2/11/20 07:02 03/10/19 03:09 Pantoprazole (Protonix) 40 mg BID IVP 03/15/19 18:00 04/14/19 17:59 03/15/19 17:52 Risperidone (RisperDAL) 1 mg BEDTIME NG 03/15/19 21:00 04/11/19 20:59 Sevelamer Carbonate (Renvela) 1,600 mg THREE TIMES A DAY NG 03/15/19 18:00 04/14/19 17:59 Tamsulosin HCl (Flomax) 0.4 mg BEDTIME ORAL 03/09/19 21:00 04/07/19 20:59 03/10/19 20:42 Vitamin D (Vitamin D) 1,000 intlu DAILY ORAL 03/16/19 09:00 04/15/19 08:59 Moraima Stone DO Mar 15, 2019 21:05
[2019-03-16] VITALS: BP 122/47
--- NOTE | 2019-03-16 00:10 | NUR ---
NURSE NOTES: oral care given, changed position for the pt. call light within reach.no SOB at this moment.
[2019-03-16] MEDS: Albuterol/Ipratropium 3ml neb HHN SCH ×4 (00:19→20:20)
--- NOTE | 2019-03-16 00:19 | NUR ---
RESPIRATORY NOTE: PT REMAINED STABLE ON BIPAP WITH CURRENT RESPIRATORY ORDERS. FACE WAS RE-TAPED AND INSPECTED. NO FACIAL WOUNDS WERE FOUNDS. NO S/S OF RESPIRATORY DISTRESS NOTED AT THIS TIME. HHN TX TOLERATED WELL.
[2019-03-16 04:00] VITALS: BP 113/40
[2019-03-16 04:55] LABS: HEMATOCRIT 26.3 % (42.0-52.0); HEMOGLOBIN 8.5 G/DL (14.2-18.0); MEAN CORPUSCULAR VOLUME 99 FL (80-99); PLATELET COUNT 58 K/UL (150-450); RED BLOOD COUNT 2.66 M/UL (4.70-6.10); WHITE BLOOD COUNT 8.4 K/UL (4.8-10.8)
[2019-03-16 05:18] LABS: ALANINE AMINOTRANSFERASE 30 U/L (12-78); ALBUMIN 2.3 G/DL (3.4-5.0); ALBUMIN/GLOBULIN RATIO 0.6 (1.0-2.7); ALKALINE PHOSPHATASE 189 U/L (46-116); ANION GAP 4 mmol/L (5-15); ASPARTATE AMINO TRANSFERASE 67 U/L (15-37); BILIRUBIN,TOTAL 0.8 MG/DL (0.2-1.0); BLOOD UREA NITROGEN 54 mg/dL (7-18); CALCIUM 8.3 MG/DL (8.5-10.1); CARBON DIOXIDE 33 MMOL/L (21-32); CHLORIDE 101 MMOL/L (98-107); POTASSIUM 3.2 MMOL/L (3.5-5.1); SODIUM 138 MMOL/L (136-145)
--- NOTE | 2019-03-16 07:00 | NUR ---
RESPIRATORY NOTES: Received Patient on BIPAP 15/8 PS +7 FIO2 35% RR 14. Patient on facial mask with tape in place. No skin breakdown or redness noted. Patient is awake but confused in bed. BIPAP plugged into red outlet. Alarms are on and audible. Will continue to monitor patient throughout the day.
--- NOTE | 2019-03-16 07:29 | NUR ---
HAND-OFF: Report given to Nalini SIERRA. pt is in stable condition
--- NOTE | 2019-03-16 07:47 | NUR ---
NURSE NOTES: Patient received from MARIELA Vázquez. Awake when received and on BIPAP 15/8 at 35 %.Noted with episode of restlessness and confusion. Hand mittens in place but patient able to removed it.NGT in place running Nepro at 15cc/hr.GT placement checked and intact.No residual at this time, HOB elevated to prevent aspiration, feeding put on hold to clarify with if feeding should be continuous with Bipap on and if Bipap should be continuous since patient desaturating without BIPAP.Anuric and on dialysis with left upper arm AV shunt. Dressing clean and intact. On warm blanket at this time.Mouth care done, turned and repositioned. Call light within easy reach.Will continue close monitoring
[2019-03-16 08:00] VITALS: BP 116/40
[2019-03-16] MEDS: Vitamin D 1000 IU Tab ORAL SCH (08:10)
[2019-03-16] MEDS: Docusate 100mg/10ml Liq NG SCH ×3 (08:11→17:26)
[2019-03-16] MEDS: Pantoprazole Inj IVP SCH ×2 (08:12→17:26)
[2019-03-16] MEDS: Renvela 800mg Pkt NG SCH ×3 (08:17→17:26)
[2019-03-16] MEDS: Aspirin Baby 81mg NG SCH (08:19)
[2019-03-16] MEDS: Lisinopril 10mg tab NG SCH (08:20)
--- NOTE | 2019-03-16 08:20 | NUR ---
NURSE NOTES: scanner broken unable to scan some meds
[2019-03-16] MEDS: Flonase Nasal Inhaler 16gm NASAL SCH (08:28)
--- NOTE | 2019-03-16 10:00 | NUR ---
NURSE NOTES: Patient asleep, no apparent acute distress.Tolerate well feeding and saturate at 100% on Bipap.No significant change in condition, will continue close monitoring
--- NOTE | 2019-03-16 11:00 | NUR ---
PT Note Attempted to see patient for treatment but patient was not available. Will attempt again in PM if time permits.
[2019-03-16 12:00] VITALS: BP 109/54
--- NOTE | 2019-03-16 12:14 | NUR ---
NURSE NOTES: Patient awake,family at bedside and update given to responsible constitution party.No significant change in condition.Mouth care done, turned and repositioned for skin management and comfort. HOB elevated to prevent aspiration.Call light within easy reach, will continue with same care plan
--- NOTE | 2019-03-16 12:55 | Nephrology Progress Note ---
Assessment/Plan Problem List: (1) ESRD (end stage renal disease) on dialysis (2) Cardiomyopathy (3) NSTEMI (non-ST elevated myocardial infarction) Assessment: Troponin lowering (4) Acute respiratory failure with hypoxia and hypercapnia Assessment ESRD- HTN Anemia DM CAD- Cardiomyopathy s/p SEPSIS MD Plan recent 2D echo 40% EjFx Pulm Toilet and support HD 03/14 next 03/17 unless need earlier Keep BP in check - Hold bp meds for now due to low BP Albumin bolus ASA Nitrate per consultants per orders Subjective ROS Limited/Unobtainable: No Constitutional: Reports: malaise, weakness Objective Objective Last 24 Hour Vital Signs Date Time Temp Pulse Resp B/P (MAP) Pulse Ox O2 Delivery O2 Flow Rate FiO2 03/16/19 12:00 Bi-pap 03/16/19 12:00 60 03/16/19 11:04 60 22 99 Facial 35 03/16/19 09:06 63 18 100 Facial 35 03/16/19 08:42 65 03/16/19 08:20 110/40 03/16/19 08:19 60 110/40 03/16/19 08:00 Bi-pap 03/16/19 08:00 96.4 65 19 116/40 (65) 99 03/16/19 07:02 98 Bi-Pap 35 03/16/19 07:00 66 22 98 Facial 35 62 24 100 Bi-Pap 03/16/19 04:35 64 20 100 Facial 35 03/16/19 04:00 Bi-pap 03/16/19 04:00 96.7 67 20 113/40 (64) 100 03/16/19 03:26 61 03/16/19 02:35 63 22 100 Facial 35 03/16/19 00:34 63 26 100 Facial 35 03/16/19 00:19 64 26 97 Facial 35 64 22 100 Bi-Pap 03/16/19 00:00 95.9 66 35 122/47 (72) 100 03/16/19 00:00 Bi-pap 03/15/19 23:33 66 03/15/19 22:32 65 24 100 Facial 35 03/15/19 21:00 60 100/45 03/15/19 20:39 65 19 100 Facial 35 03/15/19 20:00 Bi-pap 03/15/19 20:00 97.0 66 18 111/41 (64) 100 03/15/19 19:32 66 03/15/19 19:07 65 19 99 Bi-Pap 35 03/15/19 19:07 65 19 99 Facial 35 64 24 100 Bi-Pap 03/15/19 19:07 99 Bi-Pap 35 03/15/19 17:16 65 18 100 Facial 35 03/15/19 16:00 Simple Mask 10.0 03/15/19 16:00 96.4 66 20 92/44 (60) 100 03/15/19 16:00 69 03/15/19 15:29 66 27 100 Facial 35 03/15/19 14:30 93/39 03/15/19 13:46 68 24 99 Facial 35 Bi-Pap 03/15/19 13:20 69 16 92 Intake and Output 03/15/19 03/16/19 19:00 07:00 Intake Total 310 ml 802 ml Balance 310 ml 802 ml Free Water 20 ml 40 ml IV Total 270 ml 687 ml Tube Feeding 20 ml 75 ml # Voids 1 # Bowel Movements 1 Laboratory Tests 03/16/19 03:38: White Blood Count 8.4, Red Blood Count 2.66L, Hemoglobin 8.5L, Hematocrit 26.3L , Mean Corpuscular Volume 99, Mean Corpuscular Hemoglobin 31.8H, Mean Corpuscular Hemoglobin Concent 32.2, Red Cell Distribution Width 15.0H, Platelet Count 58L, Mean Platelet Volume 7.9, Neutrophils (%) (Auto) , Lymphocytes (%) (Auto) , Monocytes (%) (Auto) , Eosinophils (%) (Auto) , Basophils (%) (Auto) , Differential Total Cells Counted 100, Neutrophils % ( Manual) 76H, Lymphocytes % (Manual) 8L, Monocytes % (Manual) 1, Eosinophils % ( Manual) 0, Basophils % (Manual) 0, Band Neutrophils 15H, Platelet Estimate DecreasedL, Platelet Morphology Normal, Hypochromasia 1+, Anisocytosis 1+, Sodium Level 138, Potassium Level 3.2L, Chloride Level 101, Carbon Dioxide Level 33H, Anion Gap 4L, Blood Urea Nitrogen 54H, Creatinine 6.0H, Estimat Glomerular Filtration Rate , Glucose Level 130H, Calcium Level 8.3L, Phosphorus Level 5.0H, Magnesium Level 2.3, Total Bilirubin 0.8, Aspartate Amino Transf ( AST/SGOT) 67H, Alanine Aminotransferase (ALT/SGPT) 30, Alkaline Phosphatase 189H , C-Reactive Protein, Quantitative 31.4H, Pro-B-Type Natriuretic Peptide > 54066L, Total Protein 6.3L, Albumin 2.3L, Globulin 4.0, Albumin/Globulin Ratio 0.6L Height (Feet): 5 Height (Inches): 5.00 Weight (Pounds): 135 EENT: other - bipap Cardiovascular: normal rate Respiratory/Chest: decreased breath sounds Abdomen: soft, distended Objective no change Mikey Brandt MD Mar 16, 2019 12:54
--- NOTE | 2019-03-16 14:02 | NUR ---
NURSE NOTES: Patient asleep, no apparent sign acute distress.HOB elevated to prevent aspiration.Call light within easy reach. Remains hemodynamically stable.Will continue close monitoring
[2019-03-16] MEDS: Dextrose 10% 1,000 ML IV SCH (14:07)
[2019-03-16] MEDS ORDERED: NS 275ml ONE (14:14)
[2019-03-16] MEDS ORDERED: Tubing IV Secondary IV ONE (14:14)
--- NOTE | 2019-03-16 14:28 | General Progress Note ---
Assessment/Plan Problem List: (1) Hypoglycemia ICD Codes: E16.2 - Hypoglycemia, unspecified SNOMED: 823751307 (2) Hemodialysis disequilibrium syndrome ICD Codes: E87.8 - Other disorders of electrolyte and fluid balance, not elsewhere classified SNOMED: 20963975 (3) NSTEMI (non-ST elevated myocardial infarction) ICD Codes: I21.4 - Non-ST elevation (NSTEMI) myocardial infarction SNOMED: 70615256 (4) ESRD (end stage renal disease) on dialysis ICD Codes: N18.6 - End stage renal disease; Z99.2 - Dependence on renal dialysis SNOMED: 047083294 (5) Diabetes ICD Codes: E11.9 - Type 2 diabetes mellitus without complications SNOMED: 05256574 (6) vascular dementia Assessment/Plan: glucose values are stable w/o hypoglycemia no need for diabetic medications continue to monitor glucose hypoglycemia protocol in order Subjective ROS Limited/Unobtainable: Yes Allergies: Coded Allergies: No Known Allergies (Unverified , 05/25/13) Subjective events noted glucose values are stable Item Value Date Time Bedside Blood Glucose 92 mg/dl 03/16/19 1130 Bedside Blood Glucose 108 mg/dl 03/16/19 0630 Objective Last 24 Hour Vital Signs Date Time Temp Pulse Resp B/P (MAP) Pulse Ox O2 Delivery O2 Flow Rate FiO2 03/16/19 13:20 65 26 100 Facial 35 03/16/19 12:00 Bi-pap 03/16/19 12:00 60 03/16/19 12:00 97.5 60 20 109/54 (72) 100 03/16/19 11:04 60 22 99 Facial 35 03/16/19 09:06 63 18 100 Facial 35 03/16/19 08:42 65 03/16/19 08:20 110/40 03/16/19 08:19 60 110/40 03/16/19 08:00 Bi-pap 03/16/19 08:00 96.4 65 19 116/40 (65) 99 03/16/19 07:02 98 Bi-Pap 35 03/16/19 07:00 66 22 98 Facial 35 62 24 100 Bi-Pap 03/16/19 04:35 64 20 100 Facial 35 03/16/19 04:00 Bi-pap 03/16/19 04:00 96.7 67 20 113/40 (64) 100 03/16/19 03:26 61 03/16/19 02:35 63 22 100 Facial 35 03/16/19 00:34 63 26 100 Facial 35 03/16/19 00:19 64 26 97 Facial 35 64 22 100 Bi-Pap 03/16/19 00:00 95.9 66 35 122/47 (72) 100 03/16/19 00:00 Bi-pap 03/15/19 23:33 66 03/15/19 22:32 65 24 100 Facial 35 03/15/19 21:00 60 100/45 03/15/19 20:39 65 19 100 Facial 35 03/15/19 20:00 Bi-pap 03/15/19 20:00 97.0 66 18 111/41 (64) 100 03/15/19 19:32 66 03/15/19 19:07 65 19 99 Bi-Pap 35 03/15/19 19:07 65 19 99 Facial 35 64 24 100 Bi-Pap 03/15/19 19:07 99 Bi-Pap 35 03/15/19 17:16 65 18 100 Facial 35 03/15/19 16:00 Simple Mask 10.0 03/15/19 16:00 96.4 66 20 92/44 (60) 100 03/15/19 16:00 69 03/15/19 15:29 66 27 100 Facial 35 03/15/19 14:30 93/39 Intake and Output 03/15/19 03/16/19 19:00 07:00 Intake Total 310 ml 802 ml Balance 310 ml 802 ml Free Water 20 ml 40 ml IV Total 270 ml 687 ml Tube Feeding 20 ml 75 ml # Voids 1 # Bowel Movements 1 Laboratory Tests 03/16/19 03:38: White Blood Count 8.4, Red Blood Count 2.66L, Hemoglobin 8.5L, Hematocrit 26.3L , Mean Corpuscular Volume 99, Mean Corpuscular Hemoglobin 31.8H, Mean Corpuscular Hemoglobin Concent 32.2, Red Cell Distribution Width 15.0H, Platelet Count 58L, Mean Platelet Volume 7.9, Neutrophils (%) (Auto) , Lymphocytes (%) (Auto) , Monocytes (%) (Auto) , Eosinophils (%) (Auto) , Basophils (%) (Auto) , Differential Total Cells Counted 100, Neutrophils % ( Manual) 76H, Lymphocytes % (Manual) 8L, Monocytes % (Manual) 1, Eosinophils % ( Manual) 0, Basophils % (Manual) 0, Band Neutrophils 15H, Platelet Estimate DecreasedL, Platelet Morphology Normal, Hypochromasia 1+, Anisocytosis 1+, Sodium Level 138, Potassium Level 3.2L, Chloride Level 101, Carbon Dioxide Level 33H, Anion Gap 4L, Blood Urea Nitrogen 54H, Creatinine 6.0H, Estimat Glomerular Filtration Rate , Glucose Level 130H, Calcium Level 8.3L, Phosphorus Level 5.0H, Magnesium Level 2.3, Total Bilirubin 0.8, Aspartate Amino Transf ( AST/SGOT) 67H, Alanine Aminotransferase (ALT/SGPT) 30, Alkaline Phosphatase 189H , C-Reactive Protein, Quantitative 31.4H, Pro-B-Type Natriuretic Peptide > 53403Y, Total Protein 6.3L, Albumin 2.3L, Globulin 4.0, Albumin/Globulin Ratio 0.6L Height (Feet): 5 Height (Inches): 5.00 Weight (Pounds): 135 General Appearance: no apparent distress Neck: normal alignment Cardiovascular: normal rate Respiratory/Chest: lungs clear Abdomen: normal bowel sounds Objective Current Medications Medications (Trade) Dose Ordered Sig/Stephany Route PRN Reason Start Time Stop Time Status Last Admin Dose Admin Acetaminophen (Tylenol) 650 mg Q6H PRN ORAL Mild Pain/Temp > 100.5 03/09/19 07:01 04/07/19 07:00 03/10/19 03:10 Albuterol/ Ipratropium (Albuterol/ Ipratropium) 3 ml Q4HRT PRN HHN Shortness of Breath 03/11/19 22:30 03/16/19 22:29 03/12/19 15:45 Albuterol/ Ipratropium (Albuterol/ Ipratropium) 3 ml Q6HRT HHN 03/14/19 19:00 03/19/19 18:59 03/16/19 07:03 Aspirin (ASA) 81 mg DAILY NG 03/16/19 09:00 04/07/19 08:59 03/16/19 08:19 Atorvastatin Calcium (Lipitor) 20 mg BEDTIME NG 03/15/19 21:00 04/07/19 20:59 03/15/19 21:04 Carvedilol (Coreg) 3.125 mg EVERY 12 HOURS NG 03/15/19 21:00 04/09/19 20:59 03/16/19 08:19 Cefepime HCl 1 gm/ Dextrose 55 ml @ 110 mls/hr Q24H IVPB 03/14/19 21:00 03/21/19 20:59 03/15/19 21:04 Clonidine HCl (Catapres Tab) 0.1 mg Q8H PRN SL For High Blood Pressure 03/11/19 20:00 04/10/19 19:59 Dextrose 1,000 ml @ 30 mls/hr Q24H IV 03/09/19 14:07 04/08/19 14:06 03/15/19 15:12 Dextrose (Dextrose 50%) 25 ml Q30M PRN IV Hypoglycemia 03/09/19 07:00 04/07/19 06:59 Dextrose (Dextrose 50%) 50 ml Q30M PRN IV Hypoglycemia 03/09/19 07:00 04/07/19 06:59 Docusate Sodium (Colace) 100 mg THREE TIMES A DAY NG 03/15/19 18:00 04/14/19 17:59 03/16/19 12:44 Finasteride (Proscar) 5 mg DAILY ORAL 03/16/19 09:00 04/07/19 08:59 03/16/19 08:11 Fluticasone Propionate (Flonase) 2 spray DAILY NASAL 03/09/19 09:00 04/07/19 08:59 03/16/19 08:28 Guaifenesin/ Codeine Phosphate (Robitussin with codeine) 5 ml Q4H PRN ORAL For Cough 03/09/19 07:00 04/07/19 06:59 03/10/19 03:09 Hydralazine HCl (Apresoline) 25 mg Q4H PRN NG bp over 160 syst 03/15/19 19:03 04/07/19 07:02 Lisinopril (ZestriL) 10 mg DAILY NG 03/16/19 09:00 04/10/19 08:59 03/16/19 08:20 Lorazepam (Ativan 2mg/ml 1ml) 0.25 mg Q6H PRN IV For Anxiety 03/12/19 12:30 03/18/19 19:59 Lorazepam (Ativan) 1 mg Q6H PRN ORAL For Anxiety 03/12/19 12:28 03/19/19 12:27 Nitroglycerin (Ntg) 1 patch Q24H TDERMAL 03/09/19 14:30 04/08/19 14:29 03/13/19 14:30 Ondansetron HCl (Zofran) 4 mg Q4H PRN IVP Nausea & Vomiting 03/09/19 07:03 04/08/19 07:02 03/10/19 03:09 Pantoprazole (Protonix) 40 mg BID IVP 03/15/19 18:00 04/14/19 17:59 03/16/19 08:12 Risperidone (RisperDAL) 1 mg BEDTIME NG 03/15/19 21:00 04/11/19 20:59 03/15/19 21:04 Sevelamer Carbonate (Renvela) 1,600 mg THREE TIMES A DAY NG 03/15/19 18:00 04/14/19 17:59 03/16/19 12:44 Tamsulosin HCl (Flomax) 0.4 mg BEDTIME ORAL 03/09/19 21:00 04/07/19 20:59 03/15/19 21:04 Vitamin D (Vitamin D) 1,000 intlu DAILY ORAL 03/16/19 09:00 04/15/19 08:59 03/16/19 08:10 Shawn Saldana MD Mar 16, 2019 14:28
[2019-03-16] MEDS: Nitroglycerin Patch 0.4mg TDERMAL SCH (15:16)
[2019-03-16 16:00] VITALS: BP 109/46
--- NOTE | 2019-03-16 16:01 | NUR ---
NURSE NOTES: Patient turned and repositioned.Mouth care done .HOB elevated to prevent aspiration.No significant changed in condition at this time.Will continue close monitoring
--- NOTE | 2019-03-16 18:02 | NUR ---
NURSE NOTES: Patient noted to remove device.Pull out NGT, NGT placed and KUB order.Awaiting for confirmation. No acute distress at this time.Will continue same care plan
--- NOTE | 2019-03-16 19:02 | NUR ---
HAND-OFF: Report given to MARIELA Vázquez.
--- NOTE | 2019-03-16 19:03 | NUR ---
NURSE NOTES: received pt from Nalini SIERRA., pt is awake and pt pulled out NGT and Bipap at this moment. put back BIPAP on the Pt, O2sat is at 100% after put back BIPAP. IV right hand 22G and Right AC 20G is intact, clean, and patent. D10 is running at 30cc/hr. Left Upper Arm AV shunt noted. pt is non-stop moving on the bed. call light within reach. bed at the lowest position, alarmed, and locked.will continue to monitor pt with plan of care.
--- NOTE | 2019-03-16 19:14 | General Progress Note ---
Assessment/Plan Assessment/Plan: Assessment - Failed swallow, aspiration risk - resp failure - still too high a risk for EGD - NSTEMI - thrombocytopenia - PNA - CAD - ESRD, HD - OBS - Poor prognosis Recommendations - NGT feeds - follow labs - follow resp parameters closely - PEG postponed until more stable Subjective Allergies: Coded Allergies: No Known Allergies (Unverified , 05/25/13) Subjective Above noted back on BIPAP non communicative tolerating TF Objective Last 24 Hour Vital Signs Date Time Temp Pulse Resp B/P (MAP) Pulse Ox O2 Delivery O2 Flow Rate FiO2 03/16/19 17:20 59 14 95 Facial 35 03/16/19 16:00 Bi-pap 03/16/19 16:00 96.5 63 20 109/46 (67) 99 03/16/19 15:26 63 03/16/19 15:16 109/54 03/16/19 14:46 63 35 100 Facial 35 03/16/19 13:20 65 26 100 Facial 35 03/16/19 12:00 Bi-pap 03/16/19 12:00 60 03/16/19 12:00 97.5 60 20 109/54 (72) 100 03/16/19 11:04 60 22 99 Facial 35 03/16/19 09:06 63 18 100 Facial 35 03/16/19 08:42 65 03/16/19 08:20 110/40 03/16/19 08:19 60 110/40 03/16/19 08:00 Bi-pap 03/16/19 08:00 96.4 65 19 116/40 (65) 99 03/16/19 07:02 98 Bi-Pap 35 03/16/19 07:00 66 22 98 Facial 35 62 24 100 Bi-Pap 03/16/19 04:35 64 20 100 Facial 35 03/16/19 04:00 Bi-pap 03/16/19 04:00 96.7 67 20 113/40 (64) 100 03/16/19 03:26 61 03/16/19 02:35 63 22 100 Facial 35 03/16/19 00:34 63 26 100 Facial 35 03/16/19 00:19 64 26 97 Facial 35 64 22 100 Bi-Pap 03/16/19 00:00 95.9 66 35 122/47 (72) 100 03/16/19 00:00 Bi-pap 03/15/19 23:33 66 03/15/19 22:32 65 24 100 Facial 35 03/15/19 21:00 60 100/45 03/15/19 20:39 65 19 100 Facial 35 03/15/19 20:00 Bi-pap 03/15/19 20:00 97.0 66 18 111/41 (64) 100 03/15/19 19:32 66 Intake and Output 03/15/19 03/16/19 19:00 07:00 Intake Total 310 ml 867 ml Balance 310 ml 867 ml Free Water 20 ml 90 ml IV Total 270 ml 687 ml Tube Feeding 20 ml 90 ml # Voids 1 # Bowel Movements 1 Laboratory Tests 03/16/19 03:38: White Blood Count 8.4, Red Blood Count 2.66L, Hemoglobin 8.5L, Hematocrit 26.3L , Mean Corpuscular Volume 99, Mean Corpuscular Hemoglobin 31.8H, Mean Corpuscular Hemoglobin Concent 32.2, Red Cell Distribution Width 15.0H, Platelet Count 58L, Mean Platelet Volume 7.9, Neutrophils (%) (Auto) , Lymphocytes (%) (Auto) , Monocytes (%) (Auto) , Eosinophils (%) (Auto) , Basophils (%) (Auto) , Differential Total Cells Counted 100, Neutrophils % ( Manual) 76H, Lymphocytes % (Manual) 8L, Monocytes % (Manual) 1, Eosinophils % ( Manual) 0, Basophils % (Manual) 0, Band Neutrophils 15H, Platelet Estimate DecreasedL, Platelet Morphology Normal, Hypochromasia 1+, Anisocytosis 1+, Sodium Level 138, Potassium Level 3.2L, Chloride Level 101, Carbon Dioxide Level 33H, Anion Gap 4L, Blood Urea Nitrogen 54H, Creatinine 6.0H, Estimat Glomerular Filtration Rate , Glucose Level 130H, Calcium Level 8.3L, Phosphorus Level 5.0H, Magnesium Level 2.3, Total Bilirubin 0.8, Aspartate Amino Transf ( AST/SGOT) 67H, Alanine Aminotransferase (ALT/SGPT) 30, Alkaline Phosphatase 189H , C-Reactive Protein, Quantitative 31.4H, Pro-B-Type Natriuretic Peptide > 02115C, Total Protein 6.3L, Albumin 2.3L, Globulin 4.0, Albumin/Globulin Ratio 0.6L Height (Feet): 5 Height (Inches): 5.00 Weight (Pounds): 135 Objective Elderly man NCAT supple Coarse carinechi RR Abd soft ND Neuro confused Mann Aguilar MD Mar 16, 2019 19:14
--- NOTE | 2019-03-16 19:37 | Pulmonology Progress Note ---
Assessment/Plan Assessment/Plan Assessment/Plan ASSESSMENT: The patient is an 83-year-old male with a history of prior CVA, end -stage renal disease, on dialysis, hypertension, hyperlipidemia, CAD, CVA, and BPH presenting with dizziness and nds-NO-nmoejvcwr VA. He is fairly stable from a respiratory standpoint. PROBLEM LIST: 1. Non ST-elevation myocardial infarction. 2. Recent pneumonia. 3. Dizziness. 4. End-stage renal disease, on dialysis. 5. CAD. 6. Hypertension. 7. Hyperlipidemia. 8. Anemia. 9. Diabetes. TREATMENT PLAN: 1. Optimize pulmonary hygiene/mobilize as tolerated. 2. bipap for now has been continuous all weekend long 3. HHN's 4. Abx 5. Follow up Cardiology recommendations, medical management of non-STEMI. 6. Eliquis held for PEG, continue IVUH NGT to be replaced at this time 7. Monitor volumes and renal function, dialysis per Renal. 8. PEG sunday if stable at this point might require intubation as he has been bipap dependent per nursing last 4days 9. FC, continue to discuss GOC Subjective ROS Limited/Unobtainable: Yes Allergies: Coded Allergies: No Known Allergies (Unverified , 05/25/13) Subjective awake confused and pulled out NGT this evening remains on bipap 15/5 TV around 350 sats 100 % on 35 FIO2 no distress does not follow commands Objective Last 24 Hour Vital Signs Date Time Temp Pulse Resp B/P (MAP) Pulse Ox O2 Delivery O2 Flow Rate FiO2 03/16/19 17:20 59 14 95 Facial 35 03/16/19 16:00 Bi-pap 03/16/19 16:00 96.5 63 20 109/46 (67) 99 03/16/19 15:26 63 03/16/19 15:16 109/54 03/16/19 14:46 63 35 100 Facial 35 03/16/19 13:20 65 26 100 Facial 35 03/16/19 12:00 Bi-pap 03/16/19 12:00 60 03/16/19 12:00 97.5 60 20 109/54 (72) 100 03/16/19 11:04 60 22 99 Facial 35 03/16/19 09:06 63 18 100 Facial 35 03/16/19 08:42 65 03/16/19 08:20 110/40 03/16/19 08:19 60 110/40 03/16/19 08:00 Bi-pap 03/16/19 08:00 96.4 65 19 116/40 (65) 99 03/16/19 07:02 98 Bi-Pap 35 03/16/19 07:00 66 22 98 Facial 35 62 24 100 Bi-Pap 03/16/19 04:35 64 20 100 Facial 35 03/16/19 04:00 Bi-pap 03/16/19 04:00 96.7 67 20 113/40 (64) 100 03/16/19 03:26 61 03/16/19 02:35 63 22 100 Facial 35 03/16/19 00:34 63 26 100 Facial 35 03/16/19 00:19 64 26 97 Facial 35 64 22 100 Bi-Pap 03/16/19 00:00 95.9 66 35 122/47 (72) 100 03/16/19 00:00 Bi-pap 03/15/19 23:33 66 03/15/19 22:32 65 24 100 Facial 35 03/15/19 21:00 60 100/45 03/15/19 20:39 65 19 100 Facial 35 03/15/19 20:00 Bi-pap 03/15/19 20:00 97.0 66 18 111/41 (64) 100 Intake and Output 03/15/19 03/16/19 19:00 07:00 Intake Total 310 ml 867 ml Balance 310 ml 867 ml Free Water 20 ml 90 ml IV Total 270 ml 687 ml Tube Feeding 20 ml 90 ml # Voids 1 # Bowel Movements 1 General Appearance: WD/WN Respiratory/Chest: rhonchi Cardiovascular: normal rate, regular rhythm Abdomen: soft, non tender, no organomegaly Skin: no rash, no lesions Neurologic/Psychiatric: disoriented Laboratory Tests 03/16/19 03:38: White Blood Count 8.4, Red Blood Count 2.66L, Hemoglobin 8.5L, Hematocrit 26.3L , Mean Corpuscular Volume 99, Mean Corpuscular Hemoglobin 31.8H, Mean Corpuscular Hemoglobin Concent 32.2, Red Cell Distribution Width 15.0H, Platelet Count 58L, Mean Platelet Volume 7.9, Neutrophils (%) (Auto) , Lymphocytes (%) (Auto) , Monocytes (%) (Auto) , Eosinophils (%) (Auto) , Basophils (%) (Auto) , Differential Total Cells Counted 100, Neutrophils % ( Manual) 76H, Lymphocytes % (Manual) 8L, Monocytes % (Manual) 1, Eosinophils % ( Manual) 0, Basophils % (Manual) 0, Band Neutrophils 15H, Platelet Estimate DecreasedL, Platelet Morphology Normal, Hypochromasia 1+, Anisocytosis 1+, Sodium Level 138, Potassium Level 3.2L, Chloride Level 101, Carbon Dioxide Level 33H, Anion Gap 4L, Blood Urea Nitrogen 54H, Creatinine 6.0H, Estimat Glomerular Filtration Rate , Glucose Level 130H, Calcium Level 8.3L, Phosphorus Level 5.0H, Magnesium Level 2.3, Total Bilirubin 0.8, Aspartate Amino Transf ( AST/SGOT) 67H, Alanine Aminotransferase (ALT/SGPT) 30, Alkaline Phosphatase 189H , C-Reactive Protein, Quantitative 31.4H, Pro-B-Type Natriuretic Peptide > 63351L, Total Protein 6.3L, Albumin 2.3L, Globulin 4.0, Albumin/Globulin Ratio 0.6L Current Medications Medications (Trade) Dose Ordered Sig/Stephany Route PRN Reason Start Time Stop Time Status Last Admin Dose Admin Acetaminophen (Tylenol) 650 mg Q6H PRN ORAL Mild Pain/Temp > 100.5 03/09/19 07:01 04/07/19 07:00 03/10/19 03:10 Albuterol/ Ipratropium (Albuterol/ Ipratropium) 3 ml Q4HRT PRN HHN Shortness of Breath 03/11/19 22:30 03/16/19 22:29 03/12/19 15:45 Albuterol/ Ipratropium (Albuterol/ Ipratropium) 3 ml Q6HRT HHN 03/14/19 19:00 03/19/19 18:59 03/16/19 07:03 Aspirin (ASA) 81 mg DAILY NG 03/16/19 09:00 04/07/19 08:59 03/16/19 08:19 Atorvastatin Calcium (Lipitor) 20 mg BEDTIME NG 03/15/19 21:00 04/07/19 20:59 03/15/19 21:04 Carvedilol (Coreg) 3.125 mg EVERY 12 HOURS NG 03/15/19 21:00 04/09/19 20:59 03/16/19 08:19 Cefepime HCl 1 gm/ Dextrose 55 ml @ 110 mls/hr Q24H IVPB 03/14/19 21:00 03/21/19 20:59 03/15/19 21:04 Clonidine HCl (Catapres Tab) 0.1 mg Q8H PRN SL For High Blood Pressure 03/11/19 20:00 04/10/19 19:59 Dextrose 1,000 ml @ 30 mls/hr Q24H IV 03/09/19 14:07 04/08/19 14:06 03/15/19 15:12 Dextrose (Dextrose 50%) 25 ml Q30M PRN IV Hypoglycemia 03/09/19 07:00 04/07/19 06:59 Dextrose (Dextrose 50%) 50 ml Q30M PRN IV Hypoglycemia 03/09/19 07:00 04/07/19 06:59 Docusate Sodium (Colace) 100 mg THREE TIMES A DAY NG 03/15/19 18:00 04/14/19 17:59 03/16/19 17:26 Finasteride (Proscar) 5 mg DAILY ORAL 03/16/19 09:00 04/07/19 08:59 03/16/19 08:11 Fluticasone Propionate (Flonase) 2 spray DAILY NASAL 03/09/19 09:00 04/07/19 08:59 03/16/19 08:28 Guaifenesin/ Codeine Phosphate (Robitussin with codeine) 5 ml Q4H PRN ORAL For Cough 03/09/19 07:00 04/07/19 06:59 03/10/19 03:09 Hydralazine HCl (Apresoline) 25 mg Q4H PRN NG bp over 160 syst 03/15/19 19:03 04/07/19 07:02 Lisinopril (ZestriL) 10 mg DAILY NG 03/16/19 09:00 04/10/19 08:59 03/16/19 08:20 Lorazepam (Ativan 2mg/ml 1ml) 0.25 mg Q6H PRN IV For Anxiety 03/12/19 12:30 03/18/19 19:59 Lorazepam (Ativan) 1 mg Q6H PRN ORAL For Anxiety 03/12/19 12:28 03/19/19 12:27 Nitroglycerin (Ntg) 1 patch Q24H TDERMAL 03/09/19 14:30 04/08/19 14:29 03/16/19 15:16 Ondansetron HCl (Zofran) 4 mg Q4H PRN IVP Nausea & Vomiting 03/09/19 07:03 04/08/19 07:02 03/10/19 03:09 Pantoprazole (Protonix) 40 mg BID IVP 03/15/19 18:00 04/14/19 17:59 03/16/19 17:26 Risperidone (RisperDAL) 1 mg BEDTIME NG 03/15/19 21:00 04/11/19 20:59 03/15/19 21:04 Sevelamer Carbonate (Renvela) 1,600 mg THREE TIMES A DAY NG 03/15/19 18:00 04/14/19 17:59 03/16/19 17:26 Tamsulosin HCl (Flomax) 0.4 mg BEDTIME ORAL 03/09/19 21:00 04/07/19 20:59 03/15/19 21:04 Vitamin D (Vitamin D) 1,000 intlu DAILY ORAL 03/16/19 09:00 04/15/19 08:59 03/16/19 08:10 Moraima Stone DO Mar 16, 2019 19:37
--- NOTE | 2019-03-16 19:39 | NUR ---
NURSE NOTES: Dr. Aguilar aware pt pulled out the NG tube 3rd time, and Dr. Aguilar ordered to discontinue the NGT. noted and will carry on. pt is still on BIPAP at this moment.
--- NOTE | 2019-03-16 19:54 | NUR ---
NURSE NOTES: notified Dr. García regarding Discontinued order NGT from Dr. Aguilar. new order received chest xray, cbc, and cmp in 03.17.2019 AM. will noted and carry on.
[2019-03-16 20:00] VITALS: BP 126/59
[2019-03-16] MEDS: Atorvastatin 20mg tab NG SCH (20:19)
[2019-03-16] MEDS: Tamsulosin 0.4mg cap ORAL SCH (20:19)
--- NOTE | 2019-03-16 20:20 | NUR ---
NURSE NOTES: unable to administer NGT medications due to D/C the NGT. Pt pulled out NGT.
--- NOTE | 2019-03-16 20:28 | General Progress Note ---
Assessment/Plan Assessment/Plan: respiratory failure aspiration risk NSTEMI renal failure diabeters persistent hypoglycemia ho pneumonia ho elevated lactic acid htn hld bipap prn aggressive pulmonaryhygiene, followed by Dr Cornelius VSAndreina eval noted , pos aspirate ng placed getting feeds gtube if medically stable eliquis held aspiration precutions\pulmonary hygiene echo noted, decreaed EF cards fup dw Dr Corcoran considering cath when off abx endo eval appreciated dialysis dependend check cultures abx per ID dw Dr Burk, on eliquis due to previous stroke paf dvt and ulcer prophylaxis Subjective Allergies: Coded Allergies: No Known Allergies (Unverified , 05/25/13) Subjective seen in am has ngtube getting feed on bipap Objective Last 24 Hour Vital Signs Date Time Temp Pulse Resp B/P (MAP) Pulse Ox O2 Delivery O2 Flow Rate FiO2 03/16/19 20:20 67 25 100 Facial 35 67 22 100 Bi-Pap 03/16/19 20:20 98 Bi-Pap 35 03/16/19 20:00 Bi-pap 03/16/19 17:20 59 14 95 Facial 35 03/16/19 16:00 Bi-pap 03/16/19 16:00 96.5 63 20 109/46 (67) 99 03/16/19 15:26 63 03/16/19 15:16 109/54 03/16/19 14:46 63 35 100 Facial 35 03/16/19 13:20 65 26 100 Facial 35 03/16/19 12:00 Bi-pap 03/16/19 12:00 60 03/16/19 12:00 97.5 60 20 109/54 (72) 100 03/16/19 11:04 60 22 99 Facial 35 03/16/19 09:06 63 18 100 Facial 35 03/16/19 08:42 65 03/16/19 08:20 110/40 03/16/19 08:19 60 110/40 03/16/19 08:00 Bi-pap 03/16/19 08:00 96.4 65 19 116/40 (65) 99 03/16/19 07:02 98 Bi-Pap 35 03/16/19 07:00 66 22 98 Facial 35 62 24 100 Bi-Pap 03/16/19 04:35 64 20 100 Facial 35 03/16/19 04:00 Bi-pap 03/16/19 04:00 96.7 67 20 113/40 (64) 100 03/16/19 03:26 61 03/16/19 02:35 63 22 100 Facial 35 03/16/19 00:34 63 26 100 Facial 35 03/16/19 00:19 64 26 97 Facial 35 64 22 100 Bi-Pap 03/16/19 00:00 95.9 66 35 122/47 (72) 100 03/16/19 00:00 Bi-pap 03/15/19 23:33 66 03/15/19 22:32 65 24 100 Facial 35 03/15/19 21:00 60 100/45 03/15/19 20:39 65 19 100 Facial 35 Intake and Output 03/15/19 03/16/19 19:00 07:00 Intake Total 310 ml 867 ml Balance 310 ml 867 ml Free Water 20 ml 90 ml IV Total 270 ml 687 ml Tube Feeding 20 ml 90 ml # Voids 1 # Bowel Movements 1 Laboratory Tests 03/16/19 03:38: White Blood Count 8.4, Red Blood Count 2.66L, Hemoglobin 8.5L, Hematocrit 26.3L , Mean Corpuscular Volume 99, Mean Corpuscular Hemoglobin 31.8H, Mean Corpuscular Hemoglobin Concent 32.2, Red Cell Distribution Width 15.0H, Platelet Count 58L, Mean Platelet Volume 7.9, Neutrophils (%) (Auto) , Lymphocytes (%) (Auto) , Monocytes (%) (Auto) , Eosinophils (%) (Auto) , Basophils (%) (Auto) , Differential Total Cells Counted 100, Neutrophils % ( Manual) 76H, Lymphocytes % (Manual) 8L, Monocytes % (Manual) 1, Eosinophils % ( Manual) 0, Basophils % (Manual) 0, Band Neutrophils 15H, Platelet Estimate DecreasedL, Platelet Morphology Normal, Hypochromasia 1+, Anisocytosis 1+, Sodium Level 138, Potassium Level 3.2L, Chloride Level 101, Carbon Dioxide Level 33H, Anion Gap 4L, Blood Urea Nitrogen 54H, Creatinine 6.0H, Estimat Glomerular Filtration Rate , Glucose Level 130H, Calcium Level 8.3L, Phosphorus Level 5.0H, Magnesium Level 2.3, Total Bilirubin 0.8, Aspartate Amino Transf ( AST/SGOT) 67H, Alanine Aminotransferase (ALT/SGPT) 30, Alkaline Phosphatase 189H , C-Reactive Protein, Quantitative 31.4H, Pro-B-Type Natriuretic Peptide > 99157C, Total Protein 6.3L, Albumin 2.3L, Globulin 4.0, Albumin/Globulin Ratio 0.6L Height (Feet): 5 Height (Inches): 5.00 Weight (Pounds): 135 General Appearance: WD/WN Neck: supple Cardiovascular: normal rate Respiratory/Chest: rhonchi - bilaterally Viktor García MD Mar 16, 2019 20:28
[2019-03-16] MEDS: Cefepime HCl 1 GM in D5W 55 ML IVPB SCH (20:57)
--- NOTE | 2019-03-16 21:30 | NUR ---
NURSE NOTES: cleaned pt and changed the whole bed. pt had large BM. call light within reach. pt is less agitated. oral care given. no SOB and no Respiratory distress. repositioned pt. bed is at the lowest position, alarmed and locked. will continue to monitor pt with plan of care,
[2019-03-17] VITALS: BP 118/54
--- NOTE | 2019-03-17 | NUR ---
NURSE NOTES: pt is very agitated, non-stop moving and kicking the bed. keep attempting to remove the BIPAP even if with untied mittens.
[2019-03-17] MEDS: Albuterol/Ipratropium 3ml neb HHN SCH ×4 (01:30→18:52)
--- NOTE | 2019-03-17 02:50 | NUR ---
NURSE NOTES: pt is keep trying to remove the bipap, and staffs are trying to clam pt down by talking, touching and changing positions. oral care given. call light within reach. bed at the lowest position.
[2019-03-17 04:00] VITALS: BP 125/54
[2019-03-17 04:42] LABS: HEMATOCRIT 25.2 % (42.0-52.0); HEMOGLOBIN 8.1 G/DL (14.2-18.0); MEAN CORPUSCULAR VOLUME 98 FL (80-99); PLATELET COUNT 55 K/UL (150-450); RED BLOOD COUNT 2.57 M/UL (4.70-6.10); RED CELL DISTRIBUTION WIDTH 14.9 % (11.6-14.8); WHITE BLOOD COUNT 8.3 K/UL (4.8-10.8)
[2019-03-17 05:01] LABS: ALANINE AMINOTRANSFERASE 30 U/L (12-78); ALBUMIN 2.2 G/DL (3.4-5.0); ALBUMIN/GLOBULIN RATIO 0.6 (1.0-2.7); ALKALINE PHOSPHATASE 172 U/L (46-116); ANION GAP 11 mmol/L (5-15); ASPARTATE AMINO TRANSFERASE 54 U/L (15-37); BILIRUBIN,TOTAL 0.8 MG/DL (0.2-1.0); BLOOD UREA NITROGEN 67 mg/dL (7-18); CALCIUM 8.3 MG/DL (8.5-10.1); CARBON DIOXIDE 30 MMOL/L (21-32); CHLORIDE 101 MMOL/L (98-107); POTASSIUM 3.7 MMOL/L (3.5-5.1); SODIUM 142 MMOL/L (136-145)
--- NOTE | 2019-03-17 05:20 | NUR ---
NURSE NOTES: pt trying to move and keep taking out the bipap and untied mittens. changed the whole bed. will continue to monitor pt with plan of care.
--- NOTE | 2019-03-17 07:00 | NUR ---
NURSE NOTES: received patient report from maria elena loco. patient is on bed awake. restraints just initiated. on bipap. VS stable. will follow plan of care.
--- NOTE | 2019-03-17 07:01 | NUR ---
HAND-OFF: Report given to Letha SIERRA. pt stable condition, endorsed plan of care.
[2019-03-17 08:00] VITALS: BP 95/52
--- NOTE | 2019-03-17 08:04 | NUR ---
HAND-OFF: Report given to Letha SIERRA. pt stable condition, endorsed plan of care. Addendum: 03/17/19 at 0804 by WOOD MADRIGAL RN wrong time
[2019-03-17] MEDS: Aspirin Baby 81mg NG SCH (08:15)
[2019-03-17] MEDS: Docusate 100mg/10ml Liq NG SCH ×3 (08:17→17:06)
[2019-03-17] MEDS: Pantoprazole Inj IVP SCH ×2 (08:42→17:06)
[2019-03-17] MEDS: Flonase Nasal Inhaler 16gm NASAL SCH (08:42)
[2019-03-17] MEDS: Lisinopril 10mg tab NG SCH (08:45)
[2019-03-17] MEDS: Renvela 800mg Pkt NG SCH ×3 (08:45→17:06)
[2019-03-17] MEDS: Vitamin D 1000 IU Tab ORAL SCH (08:46)
--- NOTE | 2019-03-17 10:08 | NUR ---
RD ASSESSMENT & RECOMMENDATIONS SEE CARE ACTIVITY FOR COMPLETE ASSESSMENT DAILY ESTIMATED NEEDS: Needs based on ESRD w/ HD, 63.6kg 25-35 kcals/kg 2230-3964 total kcals 1.2-1.8 g protein/kg 76-115 g total protein Fluid per MD, on HD NUTRITION DIAGNOSIS: * Increased kcal and protein needs r/t renal dysfunction as evidenced by pt w/ ESRD on HD * Swallowing difficulty R/T dysphagia, respiratory status as evidenced by pt failed MBSS, now NPO, s/p RR, on BIPAP -> now on simple mask, PEG placement when pt stable per MD. CURRENT TF:No feeds. ENTERAL NUTRITION RECOMMENDATIONS: NEPRO @ 40ml/hr x 24 hrs to provide 960ml, 1728kcal, 78g prot, 698ml free water * W/ GI access, initiate Nepro @ 10ml/hr x 6 hrs * Advance 10ml q 4-6 hrs as tolerated to goal rate * HOB over 30 degrees/ water flush per MD ADDITIONAL RECOMMENDATIONS: * Calibrated bedscale wt * Monitor NPO status, ability for PEG placement -> PEG placement when more stable per MD, off BIPAP this AM * Monitor lytes (Phos elev) * Monitor for hypoglycemia while pt on NPO- pt on D10% at this time
--- NOTE | 2019-03-17 10:51 | General Progress Note ---
Assessment/Plan Assessment/Plan: Assessment - Failed swallow, aspiration risk - resp failure - still too high a risk for EGD - NSTEMI - thrombocytopenia - PNA - CAD - ESRD, HD - OBS - Poor prognosis Recommendations - Pulmonary f/u, ? trach - follow resp parameters closely - PEG postponed until more stable - ? TPN until stablized - defer to renal Subjective Allergies: Coded Allergies: No Known Allergies (Unverified , 05/25/13) Subjective Above noted BIPAP and Mask intermittently non communicative NGT pulled out by patient multiple times RN felt unsafe to replace again d/w renal and pulmonary Objective Last 24 Hour Vital Signs Date Time Temp Pulse Resp B/P (MAP) Pulse Ox O2 Delivery O2 Flow Rate FiO2 03/17/19 08:00 98.1 66 18 95/52 (66) 100 03/17/19 08:00 Bi-pap 03/17/19 08:00 65 03/17/19 07:34 100 Bi-Pap 35 03/17/19 07:29 60 28 100 Facial 35 60 26 100 Bi-Pap 03/17/19 04:43 58 21 99 Facial 35 03/17/19 04:35 60 20 99 Bi-Pap 35 03/17/19 04:00 Bi-pap 03/17/19 04:00 96.8 62 19 125/54 (77) 99 03/17/19 03:35 61 03/17/19 03:13 61 20 99 Facial 35 03/17/19 01:31 58 18 100 Facial 35 60 16 100 Bi-Pap 03/17/19 00:00 96.8 60 20 118/54 (75) 100 03/17/19 00:00 Bi-pap 03/16/19 23:31 60 03/16/19 23:10 60 20 100 Facial 35 03/16/19 21:03 64 21 99 Facial 35 03/16/19 20:20 67 25 100 Facial 35 67 22 100 Bi-Pap 03/16/19 20:20 98 Bi-Pap 35 03/16/19 20:00 96.6 61 18 126/59 (81) 100 03/16/19 20:00 Bi-pap 03/16/19 19:46 62 03/16/19 18:41 61 14 97 Facial 35 03/16/19 17:20 59 14 95 Facial 35 03/16/19 16:00 Bi-pap 03/16/19 16:00 96.5 63 20 109/46 (67) 99 03/16/19 15:26 63 03/16/19 15:16 109/54 03/16/19 14:46 63 35 100 Facial 35 03/16/19 13:20 65 26 100 Facial 35 03/16/19 12:00 Bi-pap 03/16/19 12:00 60 03/16/19 12:00 97.5 60 20 109/54 (72) 100 03/16/19 11:04 60 22 99 Facial 35 Intake and Output 03/16/19 03/17/19 19:00 07:00 Intake Total 650 ml 55 ml Balance 650 ml 55 ml Free Water 100 ml IV Total 360 ml 55 ml Tube Feeding 190 ml # Bowel Movements 1 3 Laboratory Tests 03/17/19 03:25: White Blood Count 8.3, Red Blood Count 2.57L, Hemoglobin 8.1L, Hematocrit 25.2L , Mean Corpuscular Volume 98, Mean Corpuscular Hemoglobin 31.4H, Mean Corpuscular Hemoglobin Concent 32.1, Red Cell Distribution Width 14.9H, Platelet Count 55L, Mean Platelet Volume 7.6, Neutrophils (%) (Auto) , Lymphocytes (%) (Auto) , Monocytes (%) (Auto) , Eosinophils (%) (Auto) , Basophils (%) (Auto) , Differential Total Cells Counted 100, Neutrophils % ( Manual) 86H, Lymphocytes % (Manual) 9L, Monocytes % (Manual) 5, Eosinophils % ( Manual) 0, Basophils % (Manual) 0, Band Neutrophils 0, Platelet Estimate DecreasedL, Platelet Morphology Normal, Hypochromasia 1+, Anisocytosis 1+, Sodium Level 142, Potassium Level 3.7, Chloride Level 101, Carbon Dioxide Level 30, Anion Gap 11, Blood Urea Nitrogen 67H, Creatinine 7.0H, Estimat Glomerular Filtration Rate , Glucose Level 123H, Calcium Level 8.3L, Total Bilirubin 0.8, Aspartate Amino Transf (AST/SGOT) 54H, Alanine Aminotransferase (ALT/SGPT) 30, Alkaline Phosphatase 172H, Total Protein 6.2L, Albumin 2.2L, Globulin 4.0, Albumin/Globulin Ratio 0.6L Height (Feet): 5 Height (Inches): 5.00 Weight (Pounds): 134 Objective Elderly man NCAT supple Coarse ronchi RR Abd soft ND Neuro confused Mann Aguilar MD Mar 17, 2019 10:51
[2019-03-17 12:00] VITALS: BP 121/51
--- NOTE | 2019-03-17 12:15 | Infectious Diseases Prog Note ---
Assessment/Plan Assessment/Plan IMPRESSION: 1. Leukocytosis, resolved 2. Lactic acidosis. 3.Doubt sepsis 4. [id number] IA. 5. End-stage renal disease, on hemodialysis. 6. Diabetes mellitus, type 2. 7. Hypertension. 8. BPH. 9. Systolic CHF with ejection fraction of 40%. 10. Dysphagia 11. Hypoxemia 12. Pulmonary edema versus pneumonia RECOMMENDATIONS: Continue Cefepime Will have PEG placement Subjective ROS Limited/Unobtainable: Yes Genitourinary: Reports: other - on bedside HD Neurologic: Reports: confusion, other - on restraint Allergies: Coded Allergies: No Known Allergies (Unverified , 05/25/13) Objective Vital Signs Last 24 Hour Vital Signs Date Time Temp Pulse Resp B/P (MAP) Pulse Ox O2 Delivery O2 Flow Rate FiO2 03/17/19 12:00 Bi-pap 03/17/19 08:00 98.1 66 18 95/52 (66) 100 03/17/19 08:00 Bi-pap 03/17/19 08:00 65 03/17/19 07:34 100 Bi-Pap 35 03/17/19 07:29 60 28 100 Facial 35 60 26 100 Bi-Pap 03/17/19 04:43 58 21 99 Facial 35 03/17/19 04:35 60 20 99 Bi-Pap 35 03/17/19 04:00 Bi-pap 03/17/19 04:00 96.8 62 19 125/54 (77) 99 03/17/19 03:35 61 03/17/19 03:13 61 20 99 Facial 35 03/17/19 01:31 58 18 100 Facial 35 60 16 100 Bi-Pap 03/17/19 00:00 96.8 60 20 118/54 (75) 100 03/17/19 00:00 Bi-pap 03/16/19 23:31 60 03/16/19 23:10 60 20 100 Facial 35 03/16/19 21:03 64 21 99 Facial 35 03/16/19 20:20 67 25 100 Facial 35 67 22 100 Bi-Pap 03/16/19 20:20 98 Bi-Pap 35 03/16/19 20:00 96.6 61 18 126/59 (81) 100 03/16/19 20:00 Bi-pap 03/16/19 19:46 62 03/16/19 18:41 61 14 97 Facial 35 03/16/19 17:20 59 14 95 Facial 35 03/16/19 16:00 Bi-pap 03/16/19 16:00 96.5 63 20 109/46 (67) 99 03/16/19 15:26 63 03/16/19 15:16 109/54 03/16/19 14:46 63 35 100 Facial 35 03/16/19 13:20 65 26 100 Facial 35 Height (Feet): 5 Height (Inches): 5.00 Weight (Pounds): 134 HEENT: mucous membranes moist Respiratory/Chest: lungs clear, other - oxygen by mask Abdomen: soft, non tender Extremities: no edema Neurologic/Psychiatric: disoriented Laboratory Tests Test 03/17/19 03:25 White Blood Count 8.3 K/UL (4.8-10.8) Red Blood Count 2.57 M/UL (4.70-6.10) L Hemoglobin 8.1 G/DL (14.2-18.0) L Hematocrit 25.2 % (42.0-52.0) L Mean Corpuscular Volume 98 FL (80-99) Mean Corpuscular Hemoglobin 31.4 PG (27.0-31.0) H Mean Corpuscular Hemoglobin Concent 32.1 G/DL (32.0-36.0) Red Cell Distribution Width 14.9 % (11.6-14.8) H Platelet Count 55 K/UL (150-450) L Mean Platelet Volume 7.6 FL (6.5-10.1) Neutrophils (%) (Auto) % (45.0-75.0) Lymphocytes (%) (Auto) % (20.0-45.0) Monocytes (%) (Auto) % (1.0-10.0) Eosinophils (%) (Auto) % (0.0-3.0) Basophils (%) (Auto) % (0.0-2.0) Differential Total Cells Counted 100 Neutrophils % (Manual) 86 % (45-75) H Lymphocytes % (Manual) 9 % (20-45) L Monocytes % (Manual) 5 % (1-10) Eosinophils % (Manual) 0 % (0-3) Basophils % (Manual) 0 % (0-2) Band Neutrophils 0 % (0-8) Platelet Estimate Decreased L Platelet Morphology Normal Hypochromasia 1+ Anisocytosis 1+ Sodium Level 142 MMOL/L (136-145) Potassium Level 3.7 MMOL/L (3.5-5.1) Chloride Level 101 MMOL/L (98-107) Carbon Dioxide Level 30 MMOL/L (21-32) Anion Gap 11 mmol/L (5-15) Blood Urea Nitrogen 67 mg/dL (7-18) H Creatinine 7.0 MG/DL (0.55-1.30) H Estimat Glomerular Filtration Rate mL/min (>60) Glucose Level 123 MG/DL (74-106) H Calcium Level 8.3 MG/DL (8.5-10.1) L Total Bilirubin 0.8 MG/DL (0.2-1.0) Aspartate Amino Transf (AST/SGOT) 54 U/L (15-37) H Alanine Aminotransferase (ALT/SGPT) 30 U/L (12-78) Alkaline Phosphatase 172 U/L (46-116) H Total Protein 6.2 G/DL (6.4-8.2) L Albumin 2.2 G/DL (3.4-5.0) L Globulin 4.0 g/dL Albumin/Globulin Ratio 0.6 (1.0-2.7) L Current Medications Medications (Trade) Dose Ordered Sig/Stephany Route PRN Reason Start Time Stop Time Status Last Admin Dose Admin Acetaminophen (Tylenol) 650 mg Q6H PRN ORAL Mild Pain/Temp > 100.5 03/09/19 07:01 04/07/19 07:00 03/10/19 03:10 Albuterol/ Ipratropium (Albuterol/ Ipratropium) 3 ml Q6HRT HHN 03/14/19 19:00 03/19/19 18:59 03/17/19 07:34 Aspirin (ASA) 81 mg DAILY NG 03/16/19 09:00 04/07/19 08:59 03/16/19 08:19 Atorvastatin Calcium (Lipitor) 20 mg BEDTIME NG 03/15/19 21:00 04/07/19 20:59 03/15/19 21:04 Carvedilol (Coreg) 3.125 mg EVERY 12 HOURS NG 03/15/19 21:00 04/09/19 20:59 03/16/19 08:19 Cefepime HCl 1 gm/ Dextrose 55 ml @ 110 mls/hr Q24H IVPB 03/14/19 21:00 03/21/19 20:59 03/16/19 20:57 Clonidine HCl (Catapres Tab) 0.1 mg Q8H PRN SL For High Blood Pressure 03/11/19 20:00 04/10/19 19:59 Dextrose 1,000 ml @ 30 mls/hr Q24H IV 03/09/19 14:07 04/08/19 14:06 03/15/19 15:12 Dextrose (Dextrose 50%) 25 ml Q30M PRN IV Hypoglycemia 03/09/19 07:00 04/07/19 06:59 Dextrose (Dextrose 50%) 50 ml Q30M PRN IV Hypoglycemia 03/09/19 07:00 04/07/19 06:59 Docusate Sodium (Colace) 100 mg THREE TIMES A DAY NG 03/15/19 18:00 04/14/19 17:59 03/16/19 17:26 Finasteride (Proscar) 5 mg DAILY ORAL 03/16/19 09:00 04/07/19 08:59 03/16/19 08:11 Fluticasone Propionate (Flonase) 2 spray DAILY NASAL 03/09/19 09:00 04/07/19 08:59 03/17/19 08:42 Guaifenesin/ Codeine Phosphate (Robitussin with codeine) 5 ml Q4H PRN ORAL For Cough 03/09/19 07:00 04/07/19 06:59 03/10/19 03:09 Hydralazine HCl (Apresoline) 25 mg Q4H PRN NG bp over 160 syst 03/15/19 19:03 04/07/19 07:02 Lisinopril (ZestriL) 10 mg DAILY NG 03/16/19 09:00 04/10/19 08:59 03/16/19 08:20 Lorazepam (Ativan 2mg/ml 1ml) 0.25 mg Q6H PRN IV For Anxiety 03/12/19 12:30 03/18/19 19:59 Lorazepam (Ativan) 1 mg Q6H PRN ORAL For Anxiety 03/12/19 12:28 03/19/19 12:27 Nitroglycerin (Ntg) 1 patch Q24H TDERMAL 03/09/19 14:30 04/08/19 14:29 03/16/19 15:16 Ondansetron HCl (Zofran) 4 mg Q4H PRN IVP Nausea & Vomiting 03/09/19 07:03 04/08/19 07:02 03/10/19 03:09 Pantoprazole (Protonix) 40 mg BID IVP 03/15/19 18:00 04/14/19 17:59 03/17/19 08:42 Risperidone (RisperDAL) 1 mg BEDTIME NG 03/15/19 21:00 04/11/19 20:59 03/15/19 21:04 Sevelamer Carbonate (Renvela) 1,600 mg THREE TIMES A DAY NG 03/15/19 18:00 04/14/19 17:59 03/16/19 17:26 Tamsulosin HCl (Flomax) 0.4 mg BEDTIME ORAL 03/09/19 21:00 04/07/19 20:59 03/15/19 21:04 Vitamin D (Vitamin D) 1,000 intlu DAILY ORAL 03/16/19 09:00 04/15/19 08:59 03/16/19 08:10 Boyd Tee MD Mar 17, 2019 12:15
--- NOTE | 2019-03-17 13:18 | Pulmonology Progress Note ---
Assessment/Plan Problems: (1) NSTEMI (non-ST elevated myocardial infarction) (2) ESRD (end stage renal disease) on dialysis (3) Cardiomyopathy (4) HTN (hypertension) (5) HLD (hyperlipidemia) (6) CVA (cerebral vascular accident) Assessment/Plan ASSESSMENT: The patient is an 83-year-old male with a history of prior CVA, end -stage renal disease, on dialysis, hypertension, hyperlipidemia, CAD, CVA, and BPH presenting with dizziness and dso-[id number] DC. He is fairly stable from a respiratory standpoint. PROBLEM LIST: 1. Non ST-elevation myocardial infarction. 2. Recent pneumonia. 3. Dizziness. 4. End-stage renal disease, on dialysis. 5. CAD. 6. Hypertension. 7. Hyperlipidemia. 8. Anemia. 9. Diabetes. TREATMENT PLAN: CXR ABG May need transfer to the ICU and intubation Optimize pulmonary hygiene/mobilize as tolerated. Continue BiPAP for now Titrate O2 HHN's Abx: Cefepime Follow up Cardiology recommendations, medical management of non-STEMI. Elijeremy held for PEG, continue IVUH Monitor volumes and renal function, dialysis per Renal. PEG once acute issues resolved FC, continue to discuss GOC Subjective Allergies: Coded Allergies: No Known Allergies (Unverified , 05/25/13) Subjective On BiPAP lethargic + cough + SOB PEG postponed Objective Last 24 Hour Vital Signs Date Time Temp Pulse Resp B/P (MAP) Pulse Ox O2 Delivery O2 Flow Rate FiO2 03/17/19 12:00 Bi-pap 03/17/19 12:00 98.2 62 18 121/51 (74) 98 03/17/19 08:00 98.1 66 18 95/52 (66) 100 03/17/19 08:00 Bi-pap 03/17/19 08:00 65 03/17/19 07:34 100 Bi-Pap 35 03/17/19 07:29 60 28 100 Facial 35 60 26 100 Bi-Pap 03/17/19 04:43 58 21 99 Facial 35 03/17/19 04:35 60 20 99 Bi-Pap 35 03/17/19 04:00 Bi-pap 03/17/19 04:00 96.8 62 19 125/54 (77) 99 03/17/19 03:35 61 03/17/19 03:13 61 20 99 Facial 35 03/17/19 01:31 58 18 100 Facial 35 60 16 100 Bi-Pap 03/17/19 00:00 96.8 60 20 118/54 (75) 100 03/17/19 00:00 Bi-pap 03/16/19 23:31 60 03/16/19 23:10 60 20 100 Facial 35 03/16/19 21:03 64 21 99 Facial 35 03/16/19 20:20 67 25 100 Facial 35 67 22 100 Bi-Pap 03/16/19 20:20 98 Bi-Pap 35 03/16/19 20:00 96.6 61 18 126/59 (81) 100 03/16/19 20:00 Bi-pap 03/16/19 19:46 62 03/16/19 18:41 61 14 97 Facial 35 03/16/19 17:20 59 14 95 Facial 35 03/16/19 16:00 Bi-pap 03/16/19 16:00 96.5 63 20 109/46 (67) 99 03/16/19 15:26 63 03/16/19 15:16 109/54 03/16/19 14:46 63 35 100 Facial 35 03/16/19 13:20 65 26 100 Facial 35 Intake and Output 03/16/19 03/17/19 19:00 07:00 Intake Total 650 ml 55 ml Balance 650 ml 55 ml Free Water 100 ml IV Total 360 ml 55 ml Tube Feeding 190 ml # Bowel Movements 1 3 General Appearance: cachetic, other - lethargic HEENT: normocephalic, atraumatic, anicteric, mucous membranes moist, other - BiPAP Respiratory/Chest: rhonchi Cardiovascular: normal peripheral pulses, normal rate, regular rhythm Abdomen: normal bowel sounds, soft, non tender, no organomegaly, non distended , no mass Extremities: no cyanosis, no clubbing, no edema Laboratory Tests 03/17/19 03:25: White Blood Count 8.3, Red Blood Count 2.57L, Hemoglobin 8.1L, Hematocrit 25.2L , Mean Corpuscular Volume 98, Mean Corpuscular Hemoglobin 31.4H, Mean Corpuscular Hemoglobin Concent 32.1, Red Cell Distribution Width 14.9H, Platelet Count 55L, Mean Platelet Volume 7.6, Neutrophils (%) (Auto) , Lymphocytes (%) (Auto) , Monocytes (%) (Auto) , Eosinophils (%) (Auto) , Basophils (%) (Auto) , Differential Total Cells Counted 100, Neutrophils % ( Manual) 86H, Lymphocytes % (Manual) 9L, Monocytes % (Manual) 5, Eosinophils % ( Manual) 0, Basophils % (Manual) 0, Band Neutrophils 0, Platelet Estimate DecreasedL, Platelet Morphology Normal, Hypochromasia 1+, Anisocytosis 1+, Sodium Level 142, Potassium Level 3.7, Chloride Level 101, Carbon Dioxide Level 30, Anion Gap 11, Blood Urea Nitrogen 67H, Creatinine 7.0H, Estimat Glomerular Filtration Rate , Glucose Level 123H, Calcium Level 8.3L, Total Bilirubin 0.8, Aspartate Amino Transf (AST/SGOT) 54H, Alanine Aminotransferase (ALT/SGPT) 30, Alkaline Phosphatase 172H, Total Protein 6.2L, Albumin 2.2L, Globulin 4.0, Albumin/Globulin Ratio 0.6L Current Medications Medications (Trade) Dose Ordered Sig/Stephany Route PRN Reason Start Time Stop Time Status Last Admin Dose Admin Acetaminophen (Tylenol) 650 mg Q6H PRN ORAL Mild Pain/Temp > 100.5 03/09/19 07:01 04/07/19 07:00 03/10/19 03:10 Albuterol/ Ipratropium (Albuterol/ Ipratropium) 3 ml Q6HRT HHN 03/14/19 19:00 03/19/19 18:59 03/17/19 07:34 Aspirin (ASA) 81 mg DAILY NG 03/16/19 09:00 04/07/19 08:59 03/16/19 08:19 Atorvastatin Calcium (Lipitor) 20 mg BEDTIME NG 03/15/19 21:00 04/07/19 20:59 03/15/19 21:04 Carvedilol (Coreg) 3.125 mg EVERY 12 HOURS NG 03/15/19 21:00 04/09/19 20:59 03/16/19 08:19 Cefepime HCl 1 gm/ Dextrose 55 ml @ 110 mls/hr Q24H IVPB 03/14/19 21:00 03/21/19 20:59 03/16/19 20:57 Clonidine HCl (Catapres Tab) 0.1 mg Q8H PRN SL For High Blood Pressure 03/11/19 20:00 04/10/19 19:59 Dextrose 1,000 ml @ 30 mls/hr Q24H IV 03/09/19 14:07 04/08/19 14:06 03/15/19 15:12 Dextrose (Dextrose 50%) 25 ml Q30M PRN IV Hypoglycemia 03/09/19 07:00 04/07/19 06:59 Dextrose (Dextrose 50%) 50 ml Q30M PRN IV Hypoglycemia 03/09/19 07:00 04/07/19 06:59 Docusate Sodium (Colace) 100 mg THREE TIMES A DAY NG 03/15/19 18:00 04/14/19 17:59 03/16/19 17:26 Finasteride (Proscar) 5 mg DAILY ORAL 03/16/19 09:00 04/07/19 08:59 03/16/19 08:11 Fluticasone Propionate (Flonase) 2 spray DAILY NASAL 03/09/19 09:00 04/07/19 08:59 03/17/19 08:42 Guaifenesin/ Codeine Phosphate (Robitussin with codeine) 5 ml Q4H PRN ORAL For Cough 03/09/19 07:00 04/07/19 06:59 03/10/19 03:09 Hydralazine HCl (Apresoline) 25 mg Q4H PRN NG bp over 160 syst 03/15/19 19:03 04/07/19 07:02 Lisinopril (ZestriL) 10 mg DAILY NG 03/16/19 09:00 04/10/19 08:59 03/16/19 08:20 Lorazepam (Ativan 2mg/ml 1ml) 0.25 mg Q6H PRN IV For Anxiety 03/12/19 12:30 03/18/19 19:59 Lorazepam (Ativan) 1 mg Q6H PRN ORAL For Anxiety 03/12/19 12:28 03/19/19 12:27 Nitroglycerin (Ntg) 1 patch Q24H TDERMAL 03/09/19 14:30 04/08/19 14:29 03/16/19 15:16 Ondansetron HCl (Zofran) 4 mg Q4H PRN IVP Nausea & Vomiting 03/09/19 07:03 04/08/19 07:02 03/10/19 03:09 Pantoprazole (Protonix) 40 mg BID IVP 03/15/19 18:00 04/14/19 17:59 03/17/19 08:42 Risperidone (RisperDAL) 1 mg BEDTIME NG 03/15/19 21:00 04/11/19 20:59 03/15/19 21:04 Sevelamer Carbonate (Renvela) 1,600 mg THREE TIMES A DAY NG 03/15/19 18:00 04/14/19 17:59 03/16/19 17:26 Tamsulosin HCl (Flomax) 0.4 mg BEDTIME ORAL 03/09/19 21:00 04/07/19 20:59 03/15/19 21:04 Vitamin D (Vitamin D) 1,000 intlu DAILY ORAL 03/16/19 09:00 04/15/19 08:59 03/16/19 08:10 Thaddeus Cornelius MD Mar 17, 2019 13:18
--- NOTE | 2019-03-17 13:20 | Nephrology Progress Note ---
Assessment/Plan Problem List: (1) ESRD (end stage renal disease) on dialysis (2) Cardiomyopathy (3) NSTEMI (non-ST elevated myocardial infarction) Assessment: Troponin lowering (4) Acute respiratory failure with hypoxia and hypercapnia Assessment ESRD- HTN Anemia DM CAD- Cardiomyopathy s/p SEPSIS [place] Plan recent 2D echo 40% EjFx Pulm Toilet and support HD 03/14 next 03/17 Keep BP in check - Hold bp meds for now due to low BP Albumin bolus ASA Nitrate per consultants per orders ? need for PEG as NGt always pulled out ? discussed with Dr Cornelius and Estelita Subjective ROS Limited/Unobtainable: Yes Objective Objective Last 24 Hour Vital Signs Date Time Temp Pulse Resp B/P (MAP) Pulse Ox O2 Delivery O2 Flow Rate FiO2 03/17/19 12:00 Bi-pap 03/17/19 12:00 98.2 62 18 121/51 (74) 98 03/17/19 08:00 98.1 66 18 95/52 (66) 100 03/17/19 08:00 Bi-pap 03/17/19 08:00 65 03/17/19 07:34 100 Bi-Pap 35 03/17/19 07:29 60 28 100 Facial 35 60 26 100 Bi-Pap 03/17/19 04:43 58 21 99 Facial 35 03/17/19 04:35 60 20 99 Bi-Pap 35 03/17/19 04:00 Bi-pap 03/17/19 04:00 96.8 62 19 125/54 (77) 99 03/17/19 03:35 61 03/17/19 03:13 61 20 99 Facial 35 03/17/19 01:31 58 18 100 Facial 35 60 16 100 Bi-Pap 03/17/19 00:00 96.8 60 20 118/54 (75) 100 03/17/19 00:00 Bi-pap 03/16/19 23:31 60 03/16/19 23:10 60 20 100 Facial 35 03/16/19 21:03 64 21 99 Facial 35 03/16/19 20:20 67 25 100 Facial 35 67 22 100 Bi-Pap 03/16/19 20:20 98 Bi-Pap 35 03/16/19 20:00 96.6 61 18 126/59 (81) 100 03/16/19 20:00 Bi-pap 03/16/19 19:46 62 03/16/19 18:41 61 14 97 Facial 35 03/16/19 17:20 59 14 95 Facial 35 03/16/19 16:00 Bi-pap 03/16/19 16:00 96.5 63 20 109/46 (67) 99 03/16/19 15:26 63 03/16/19 15:16 109/54 03/16/19 14:46 63 35 100 Facial 35 03/16/19 13:20 65 26 100 Facial 35 Intake and Output 03/16/19 03/17/19 19:00 07:00 Intake Total 650 ml 55 ml Balance 650 ml 55 ml Free Water 100 ml IV Total 360 ml 55 ml Tube Feeding 190 ml # Bowel Movements 1 3 Laboratory Tests 03/17/19 03:25: White Blood Count 8.3, Red Blood Count 2.57L, Hemoglobin 8.1L, Hematocrit 25.2L , Mean Corpuscular Volume 98, Mean Corpuscular Hemoglobin 31.4H, Mean Corpuscular Hemoglobin Concent 32.1, Red Cell Distribution Width 14.9H, Platelet Count 55L, Mean Platelet Volume 7.6, Neutrophils (%) (Auto) , Lymphocytes (%) (Auto) , Monocytes (%) (Auto) , Eosinophils (%) (Auto) , Basophils (%) (Auto) , Differential Total Cells Counted 100, Neutrophils % ( Manual) 86H, Lymphocytes % (Manual) 9L, Monocytes % (Manual) 5, Eosinophils % ( Manual) 0, Basophils % (Manual) 0, Band Neutrophils 0, Platelet Estimate DecreasedL, Platelet Morphology Normal, Hypochromasia 1+, Anisocytosis 1+, Sodium Level 142, Potassium Level 3.7, Chloride Level 101, Carbon Dioxide Level 30, Anion Gap 11, Blood Urea Nitrogen 67H, Creatinine 7.0H, Estimat Glomerular Filtration Rate , Glucose Level 123H, Calcium Level 8.3L, Total Bilirubin 0.8, Aspartate Amino Transf (AST/SGOT) 54H, Alanine Aminotransferase (ALT/SGPT) 30, Alkaline Phosphatase 172H, Total Protein 6.2L, Albumin 2.2L, Globulin 4.0, Albumin/Globulin Ratio 0.6L Height (Feet): 5 Height (Inches): 5.00 Weight (Pounds): 134 Cardiovascular: normal rate Respiratory/Chest: decreased breath sounds Abdomen: distended Objective no change Fouladian,Mikey MD Mar 17, 2019 13:20
--- NOTE | 2019-03-17 13:20 | NUR ---
PT NOTE Attempted to see patient for PT treatment, not available due to nursing procedure. Will follow up tomorrow.
[2019-03-17] MEDS: Dextrose 10% 1,000 ML IV SCH (13:58)
[2019-03-17] MEDS: Nitroglycerin Patch 0.4mg TDERMAL SCH (13:58)
--- NOTE | 2019-03-17 14:35 | Diagnostic Imaging Report ---
Indication: Dyspnea Comparison: 03/12/2019 A single view chest radiograph was obtained. Findings: Worsening bilateral airspace opacities demonstrated with air bronchograms mainly in a central distribution. The heart is enlarged but stable. Lung volumes are low. No pleural effusions are seen. IMPRESSION: Slightly worsening pulmonary edema centrally distributed versus infiltrates.
--- NOTE | 2019-03-17 14:50 | NUR ---
PT WEEKLY PROGRESS NOTE Patient being seen by PT for therapeutic exercises and mobility activities. Patient was able to ambulate 20 ft one time but currently requires mod/max assist for bed mobility tasks. Participation with PT has been limited due to lethargy and weakness. Patient will benefit from continued attempts at PT intervention for strengthening, mobility and activity tolerance.
--- NOTE | 2019-03-17 15:00 | NUR ---
NURSE NOTES: dr garcía called and ordered that patienti snow DNR DNI. Family members at bedside and understood patient resuscitation code. Daughter Aleksandra signed the POLST and also stated that NO Gtube or NGT tube placement. also explained to the family member that since no ngt or gtube will be placed, no oral/ngt meds can be given. family member verbalized understanding, reported to Dr García and dr garcía acknowledged the report.
--- NOTE | 2019-03-17 15:32 | Cardiac Electrophysiology PN ---
Assessment/Plan Assessment/Plan 1. Troponin elevation, could be due to renal failure. Troponin peak is however at 3.5 that is coming down to 1.88. Confused in restraints. No CP or SOB. EKG no acute changes. EF 40-45% On aspirin, Coreg 3.125 bid and Lipitor. Will treat medically 2. Cardiomyopathy with EF of 40%. BNP is more than 35,000. Echo on 02/02/2019 showed EF of 55% to 60%, repeat echocardiogram showed EF 40%. On Coreg, Lisinopril 10 daily and HD 3. On Eliquis for CVA and PVD. No Fib or DVT or PE 4. End-stage renal disease, on hemodialysis. 5. Lactic acidosis. 6. Hyperlipidemia, on Lipitor. 7. Dysphagia. Family refused PEG 8. Respiratory failure on BIPAP. DNR now SEB RN DNR now Subjective Subjective EGD/ PEG cancelled as patient now DNR. Family at bedside Objective Last 24 Hour Vital Signs Date Time Temp Pulse Resp B/P (MAP) Pulse Ox O2 Delivery O2 Flow Rate FiO2 03/17/19 13:58 121/51 03/17/19 13:29 68 20 100 Simple Mask 6.0 40 70 18 100 03/17/19 12:00 Bi-pap 03/17/19 12:00 98.2 62 18 121/51 (74) 98 03/17/19 12:00 62 03/17/19 08:00 98.1 66 18 95/52 (66) 100 03/17/19 08:00 Bi-pap 03/17/19 08:00 65 03/17/19 07:34 100 Bi-Pap 35 03/17/19 07:29 60 28 100 Facial 35 60 26 100 Bi-Pap 03/17/19 04:43 58 21 99 Facial 35 03/17/19 04:35 60 20 99 Bi-Pap 35 03/17/19 04:00 Bi-pap 03/17/19 04:00 96.8 62 19 125/54 (77) 99 03/17/19 03:35 61 03/17/19 03:13 61 20 99 Facial 35 03/17/19 01:31 58 18 100 Facial 35 60 16 100 Bi-Pap 03/17/19 00:00 96.8 60 20 118/54 (75) 100 03/17/19 00:00 Bi-pap 03/16/19 23:31 60 03/16/19 23:10 60 20 100 Facial 35 03/16/19 21:03 64 21 99 Facial 35 03/16/19 20:20 67 25 100 Facial 35 67 22 100 Bi-Pap 03/16/19 20:20 98 Bi-Pap 35 03/16/19 20:00 96.6 61 18 126/59 (81) 100 03/16/19 20:00 Bi-pap 03/16/19 19:46 62 03/16/19 18:41 61 14 97 Facial 35 03/16/19 17:20 59 14 95 Facial 35 03/16/19 16:00 Bi-pap 03/16/19 16:00 96.5 63 20 109/46 (67) 99 Intake and Output 03/16/19 03/17/19 19:00 07:00 Intake Total 650 ml 55 ml Balance 650 ml 55 ml Free Water 100 ml IV Total 360 ml 55 ml Tube Feeding 190 ml # Bowel Movements 1 3 Laboratory Tests Test 03/17/19 03:25 White Blood Count 8.3 K/UL (4.8-10.8) Red Blood Count 2.57 M/UL (4.70-6.10) L Hemoglobin 8.1 G/DL (14.2-18.0) L Hematocrit 25.2 % (42.0-52.0) L Mean Corpuscular Volume 98 FL (80-99) Mean Corpuscular Hemoglobin 31.4 PG (27.0-31.0) H Mean Corpuscular Hemoglobin Concent 32.1 G/DL (32.0-36.0) Red Cell Distribution Width 14.9 % (11.6-14.8) H Platelet Count 55 K/UL (150-450) L Mean Platelet Volume 7.6 FL (6.5-10.1) Neutrophils (%) (Auto) % (45.0-75.0) Lymphocytes (%) (Auto) % (20.0-45.0) Monocytes (%) (Auto) % (1.0-10.0) Eosinophils (%) (Auto) % (0.0-3.0) Basophils (%) (Auto) % (0.0-2.0) Differential Total Cells Counted 100 Neutrophils % (Manual) 86 % (45-75) H Lymphocytes % (Manual) 9 % (20-45) L Monocytes % (Manual) 5 % (1-10) Eosinophils % (Manual) 0 % (0-3) Basophils % (Manual) 0 % (0-2) Band Neutrophils 0 % (0-8) Platelet Estimate Decreased L Platelet Morphology Normal Hypochromasia 1+ Anisocytosis 1+ Sodium Level 142 MMOL/L (136-145) Potassium Level 3.7 MMOL/L (3.5-5.1) Chloride Level 101 MMOL/L (98-107) Carbon Dioxide Level 30 MMOL/L (21-32) Anion Gap 11 mmol/L (5-15) Blood Urea Nitrogen 67 mg/dL (7-18) H Creatinine 7.0 MG/DL (0.55-1.30) H Estimat Glomerular Filtration Rate mL/min (>60) Glucose Level 123 MG/DL (74-106) H Calcium Level 8.3 MG/DL (8.5-10.1) L Total Bilirubin 0.8 MG/DL (0.2-1.0) Aspartate Amino Transf (AST/SGOT) 54 U/L (15-37) H Alanine Aminotransferase (ALT/SGPT) 30 U/L (12-78) Alkaline Phosphatase 172 U/L (46-116) H Total Protein 6.2 G/DL (6.4-8.2) L Albumin 2.2 G/DL (3.4-5.0) L Globulin 4.0 g/dL Albumin/Globulin Ratio 0.6 (1.0-2.7) L Objective HEAD AND NECK: No JVD. LUNGS: Clear. CARDIOVASCULAR: Regular S1 and S2 with no gallop or murmur. ABDOMEN: Soft. EXTREMITIES: No pitting edema. Dialysis access in the left arm. Dariel Corcoran MD Mar 17, 2019 15:32
[2019-03-17 16:00] VITALS: BP 116/50
--- NOTE | 2019-03-17 16:13 | NUR ---
TECHNICAL DELIVERY MANAGERCONSULTATIVE SALES ASSOCIATE SI: RESP FAILURE,DYSPHAGIA T. 98.1 HR 60 RR 26 B/P 95/52 BIPAP 15/8 FIO2 35% IS: CEFEPIME IV IVF D5 @ 30ML/HR STEP DOWN STATUS
[2019-03-17 18:01] LABS: HEMATOCRIT 26.4 % (42.0-52.0); HEMOGLOBIN 8.6 G/DL (14.2-18.0); MEAN CORPUSCULAR VOLUME 98 FL (80-99); PLATELET COUNT 75 K/UL (150-450); RED BLOOD COUNT 2.69 M/UL (4.70-6.10); WHITE BLOOD COUNT 9.2 K/UL (4.8-10.8)
[2019-03-17 18:05] LABS: BASOPHILS % (AUTO) 0.4 % (0.0-2.0); EOSINOPHILS % (AUTO) 0.6 % (0.0-3.0); LYMPHOCYTES % (AUTO) 5.7 % (20.0-45.0); MONOCYTES % (AUTO) 5.8 % (1.0-10.0); NEUTROPHILS % (AUTO) 87.5 % (45.0-75.0)
--- NOTE | 2019-03-17 18:08 | Consultation ---
History of Present Illness General Chief Complaint: Dizziness Present Illness Allergies: Coded Allergies: No Known Allergies (Unverified , 05/25/13) Medication History Scheduled Apixaban (Eliquis), 2.5 MG PO BID, (Reported) Atorvastatin Calcium* (Atorvastatin Calcium*), 20 MG ORAL BEDTIME, (Reported) Benazepril Hcl* (Benazepril Hcl*), 10 MG ORAL DAILY, (Reported) Cholecalciferol (Vitamin D3) (Vitamin D), 50,000 UNIT PO ONCE A WEEK, (Reported) Dutasteride (Dutasteride), 0.5 MG PO DAILY, (Reported) Fluticasone Propionate* (Fluticasone Propionate*), 2 SPRAY NASAL DAILY, ( Reported) Insulin Aspart (Novolog Flexpen), SUBQ AC+HS, (Reported) Insulin Detemir (Levemir Flexpen), 5 SUBQ EVERY 12 HOURS, (Reported) No Known Medications* (NKM - No Known Medications*), 0 ., (Reported) No Known Medications* (NKM - No Known Medications*), 0 ., (Reported) Tamsulosin HCl (Flomax), 0.4 MG ORAL BEDTIME, (Reported) Scheduled PRN Guaifenesin/Codeine Phos* (Robitussin Ac*), 1 TSP ORAL Q4H PRN for For Cough, ( Reported) Miscellaneous Medications Guaifenesin (Mucus Relief), 400 MG PO, (Reported) Patient History Healthcare decision maker Resuscitation status Full Code Advanced Directive on File Physical Exam Last 24 Hour Vital Signs Date Time Temp Pulse Resp B/P (MAP) Pulse Ox O2 Delivery O2 Flow Rate FiO2 03/17/19 16:00 96.1 75 19 116/50 (72) 98 03/17/19 16:00 Bi-pap 03/17/19 16:00 74 03/17/19 13:58 121/51 03/17/19 13:29 68 20 100 Simple Mask 6.0 40 70 18 100 03/17/19 12:00 Bi-pap 03/17/19 12:00 98.2 62 18 121/51 (74) 98 03/17/19 12:00 62 03/17/19 08:00 98.1 66 18 95/52 (66) 100 03/17/19 08:00 Bi-pap 03/17/19 08:00 65 03/17/19 07:34 100 Bi-Pap 35 03/17/19 07:29 60 28 100 Facial 35 60 26 100 Bi-Pap 03/17/19 04:43 58 21 99 Facial 35 03/17/19 04:35 60 20 99 Bi-Pap 35 03/17/19 04:00 Bi-pap 03/17/19 04:00 96.8 62 19 125/54 (77) 99 03/17/19 03:35 61 03/17/19 03:13 61 20 99 Facial 35 03/17/19 01:31 58 18 100 Facial 35 60 16 100 Bi-Pap 03/17/19 00:00 96.8 60 20 118/54 (75) 100 03/17/19 00:00 Bi-pap 03/16/19 23:31 60 03/16/19 23:10 60 20 100 Facial 35 03/16/19 21:03 64 21 99 Facial 35 03/16/19 20:20 67 25 100 Facial 35 67 22 100 Bi-Pap 03/16/19 20:20 98 Bi-Pap 35 03/16/19 20:00 96.6 61 18 126/59 (81) 100 03/16/19 20:00 Bi-pap 03/16/19 19:46 62 03/16/19 18:41 61 14 97 Facial 35 Intake and Output 03/16/19 03/17/19 19:00 07:00 Intake Total 650 ml 55 ml Balance 650 ml 55 ml Free Water 100 ml IV Total 360 ml 55 ml Tube Feeding 190 ml # Bowel Movements 1 3 Laboratory Tests Test 03/17/19 03:25 03/17/19 16:13 03/17/19 17:55 White Blood Count 8.3 K/UL (4.8-10.8) Pending Red Blood Count 2.57 M/UL (4.70-6.10) L Pending Hemoglobin 8.1 G/DL (14.2-18.0) L Pending Hematocrit 25.2 % (42.0-52.0) L Pending Mean Corpuscular Volume 98 FL (80-99) Pending Mean Corpuscular Hemoglobin 31.4 PG (27.0-31.0) H Pending Mean Corpuscular Hemoglobin Concent 32.1 G/DL (32.0-36.0) Pending Red Cell Distribution Width 14.9 % (11.6-14.8) H Pending Platelet Count 55 K/UL (150-450) L Pending Mean Platelet Volume 7.6 FL (6.5-10.1) Pending Neutrophils (%) (Auto) % (45.0-75.0) Pending Lymphocytes (%) (Auto) % (20.0-45.0) Pending Monocytes (%) (Auto) % (1.0-10.0) Pending Eosinophils (%) (Auto) % (0.0-3.0) Pending Basophils (%) (Auto) % (0.0-2.0) Pending Differential Total Cells Counted 100 Neutrophils % (Manual) 86 % (45-75) H Lymphocytes % (Manual) 9 % (20-45) L Monocytes % (Manual) 5 % (1-10) Eosinophils % (Manual) 0 % (0-3) Basophils % (Manual) 0 % (0-2) Band Neutrophils 0 % (0-8) Platelet Estimate Decreased L Platelet Morphology Normal Hypochromasia 1+ Anisocytosis 1+ Sodium Level 142 MMOL/L (136-145) Potassium Level 3.7 MMOL/L (3.5-5.1) Chloride Level 101 MMOL/L (98-107) Carbon Dioxide Level 30 MMOL/L (21-32) Anion Gap 11 mmol/L (5-15) Blood Urea Nitrogen 67 mg/dL (7-18) H Creatinine 7.0 MG/DL (0.55-1.30) H Estimat Glomerular Filtration Rate mL/min (>60) Glucose Level 123 MG/DL (74-106) H Calcium Level 8.3 MG/DL (8.5-10.1) L Total Bilirubin 0.8 MG/DL (0.2-1.0) Aspartate Amino Transf (AST/SGOT) 54 U/L (15-37) H Alanine Aminotransferase (ALT/SGPT) 30 U/L (12-78) Alkaline Phosphatase 172 U/L (46-116) H Total Protein 6.2 G/DL (6.4-8.2) L Albumin 2.2 G/DL (3.4-5.0) L Globulin 4.0 g/dL Albumin/Globulin Ratio 0.6 (1.0-2.7) L Arterial Blood pH 7.440 (7.350-7.450) Arterial Blood Partial Pressure CO2 51.0 mmHg (35.0-45.0) H Arterial Blood Partial Pressure O2 < 45.3 mmHg (75.0-100.0) Arterial Blood HCO3 33.9 mmol/L (22.0-26.0) H Arterial Blood Oxygen Saturation 50.9 % (95-100) *L Arterial Blood Base Excess 8.6 (-2-2) H Wyatt Test Positive Height (Feet): 5 Height (Inches): 5.00 Weight (Pounds): 134 Medications Current Medications Medications (Trade) Dose Ordered Sig/Stephany Route PRN Reason Start Time Stop Time Status Last Admin Dose Admin Acetaminophen (Tylenol) 650 mg Q6H PRN ORAL Mild Pain/Temp > 100.5 03/09/19 07:01 04/07/19 07:00 03/10/19 03:10 Albuterol/ Ipratropium (Albuterol/ Ipratropium) 3 ml Q6HRT HHN 03/14/19 19:00 03/19/19 18:59 03/17/19 13:00 Aspirin (ASA) 81 mg DAILY NG 03/16/19 09:00 04/07/19 08:59 03/16/19 08:19 Atorvastatin Calcium (Lipitor) 20 mg BEDTIME NG 03/15/19 21:00 04/07/19 20:59 03/15/19 21:04 Carvedilol (Coreg) 3.125 mg EVERY 12 HOURS NG 03/15/19 21:00 04/09/19 20:59 03/16/19 08:19 Cefepime HCl 1 gm/ Dextrose 55 ml @ 110 mls/hr Q24H IVPB 03/14/19 21:00 03/21/19 20:59 03/16/19 20:57 Clonidine HCl (Catapres Tab) 0.1 mg Q8H PRN SL For High Blood Pressure 03/11/19 20:00 04/10/19 19:59 Dextrose 1,000 ml @ 30 mls/hr Q24H IV 03/09/19 14:07 04/08/19 14:06 03/17/19 13:58 Dextrose (Dextrose 50%) 25 ml Q30M PRN IV Hypoglycemia 03/09/19 07:00 04/07/19 06:59 Dextrose (Dextrose 50%) 50 ml Q30M PRN IV Hypoglycemia 03/09/19 07:00 04/07/19 06:59 Docusate Sodium (Colace) 100 mg THREE TIMES A DAY NG 03/15/19 18:00 04/14/19 17:59 03/16/19 17:26 Finasteride (Proscar) 5 mg DAILY ORAL 03/16/19 09:00 04/07/19 08:59 03/16/19 08:11 Fluticasone Propionate (Flonase) 2 spray DAILY NASAL 03/09/19 09:00 04/07/19 08:59 03/17/19 08:42 Guaifenesin/ Codeine Phosphate (Robitussin with codeine) 5 ml Q4H PRN ORAL For Cough 03/09/19 07:00 04/07/19 06:59 03/10/19 03:09 Hydralazine HCl (Apresoline) 25 mg Q4H PRN NG bp over 160 syst 03/15/19 19:03 04/07/19 07:02 Lisinopril (ZestriL) 10 mg DAILY NG 03/16/19 09:00 04/10/19 08:59 03/16/19 08:20 Lorazepam (Ativan 2mg/ml 1ml) 0.25 mg Q6H PRN IV For Anxiety 03/12/19 12:30 03/18/19 19:59 Lorazepam (Ativan) 1 mg Q6H PRN ORAL For Anxiety 03/12/19 12:28 03/19/19 12:27 Nitroglycerin (Ntg) 1 patch Q24H TDERMAL 03/09/19 14:30 04/08/19 14:29 03/17/19 13:58 Ondansetron HCl (Zofran) 4 mg Q4H PRN IVP Nausea & Vomiting 03/09/19 07:03 04/08/19 07:02 03/10/19 03:09 Pantoprazole (Protonix) 40 mg BID IVP 03/15/19 18:00 04/14/19 17:59 03/17/19 17:06 Risperidone (RisperDAL) 1 mg BEDTIME NG 03/15/19 21:00 04/11/19 20:59 03/15/19 21:04 Sevelamer Carbonate (Renvela) 1,600 mg THREE TIMES A DAY NG 03/15/19 18:00 04/14/19 17:59 03/16/19 17:26 Tamsulosin HCl (Flomax) 0.4 mg BEDTIME ORAL 03/09/19 21:00 04/07/19 20:59 03/15/19 21:04 Vitamin D (Vitamin D) 1,000 intlu DAILY ORAL 03/16/19 09:00 04/15/19 08:59 03/16/19 08:10 Assessment/Plan Assessment/Plan: Consult Hematology Chief Complaint: AMS as well as recent HD RFC: Anemia eval REQ MD: Viktor García DOS: 03/17/2019 HPI Mr. Angelica Moore is an 83 yo male with hx of IDDM, HTN and ESRD on HD TTF who presents with altered mental status. Presented due to AMS following hD, I recently saw him approx 2 weeks ago No fever. No abd pain. No cough. No dyspnea. Patient is tamazight speaking. Patient communicated through family member. cards, nephro consulted. This am is minimally communicative. Has been seen by Dr. Brandt for further eval, continues to have low platelets has been on eliquis, family refusing care, also reviewed recs by cards , gi, pulm as well, plt now downtrending, close to 50k. Is DNR. Coded Allergies: No Known Allergies (Unverified , 05/25/13) Patient History Limited by: language barrier, age Past Medical History: see triage record, old chart reviewed Past Surgical History: other - reviewed per EMR Social History: Denies: smoking, drug use Reviewed Nursing Documentation: PMH: Agreed; PSxH: Agreed Past Medical History: No History, Except For Hx Cardiac Problems: Yes - high cholesterol Hx Hypertension: Yes Hx Diabetes: Yes Hx Cancer: No Hx Gastrointestinal Problems: No Hx Dialysis: Yes - TTF Hx Neurological Problems: Yes Hx Cerebrovascular Accident: Yes Review of Systems Const: Reports: malaise ++ Resp: Denies: shortness of breath Cardiovascular: Reports: chest pain Neurological: Denies: headache, numbness All Other Systems: negative except mentioned in HPI PE Vitals: reviewed, normal Gen: no apparent distress, alert, GCS 15, non-toxic HEENT: normocephalic, atraumatic Resp: chest non-tender, lungs clear, normal Bss CV: rrr, no edema, no gallop, no JVD, no murmur Gastrointestinal: normal bowel sounds, non tender, soft, non-distended Msk: normal range of motion, non-tender, calf tenderness, + AV access LUE + thrill + bruit Neurologic: alert, oriented x3, responsive Psychiatric: judgement/insight normal, memory normal, depressed affect Reflexes: 3+ knee (L), 3+ ankle (R) Skin: normal color, no rash, warm/dry, well hydrated Lymphatic: no trip Labs: reviewed Meds: noted Assessment and Recs: # Thrombocytopenia -- i have seen him in the past and reviewed platelet trend for the past 1-2 years and this is at an all time low, likely related to infection/reactive process --> plt trend 115-->87-->7-->58-->55 --> smear has been reviewed --> meds are noted --> dw pcp, will HOLD OFF ELIQUIS FOR NOW given also low H/H # Anemia due to chronic disease -- hgb trending at 9-11 --> consider anemia panel, reviewed from prior admission --> does not require iron at this time --> hold off on iron --> hgb trend 10.7-->10-->8.1 --> EPOGEN HAS BEEN STARTED # Secondary hypercoagulable disorder, no afib, but has pvd and stroke ppx --> HOLD ELIQUIS --> continue if plt >50k and h/h stable # ESRD (end stage renal disease) --> as per Neprho --> TTF --> reviewed Dr. Brandt recs # Hypotension --> fluids as needed # RLL on cxr --> on broad spectrum abx --> as per id # Diabetes --> a1c goal <8, iss, accuchecks # NSTEMI with elev trop may be due to esrd --> as per cards management, asa bb, lipitor # Dysphagia. Family refused PEG # Respiratory failure on BIPAP. DNR now # Dvt ppx scds Appreciate consultation and dw Gigi Head MD Mar 17, 2019 18:08
--- NOTE | 2019-03-17 19:23 | NUR ---
HAND-OFF: Report given to cayetano/ pineda loco.
--- NOTE | 2019-03-17 19:25 | NUR ---
NURSE NOTES: Received report from Letha España RN. Pt is confused, alert, nonverbal at this time. BP 123/56, T 97.7, RR 24, O2 100%. No signs of symptoms of pain or distress noted. Pt on simple mask at 10 LPM, tolerating well. FLACC 0. Pt is bedbound, bed in lowest position, bed alarm armed, call light with reach.
--- NOTE | 2019-03-17 19:46 | General Progress Note ---
Assessment/Plan Assessment/Plan: respiratory failure aspiration risk NSTEMI renal failure diabeters persistent hypoglycemia ho pneumonia ho elevated lactic acid htn hld thrombocytopenia bipap prn aggressive pulmonaryhygiene, followed by Dr Cornelius VSS eval noted , pos aspirate ng placed getting feeds gtube if medically stable eliquis held aspiration precutions\pulmonary hygiene echo noted, decreaed EF cards fup dw Dr Corcoran considering cath when off abx endo eval appreciated dialysis dependent abx per ID dw Dr Burk, on eliquis due to previous stroke paf hold elliquis due to low platelets heme eval dvt and ulcer prophylaxis dw family they dont want aggressive measure want him to be comfortable DNR DNI, they dont want tube feeds no intubation considerig palliative measures Subjective Allergies: Coded Allergies: No Known Allergies (Unverified , 05/25/13) Subjective seen in am patient removed ng tube currently on 02 Objective Last 24 Hour Vital Signs Date Time Temp Pulse Resp B/P (MAP) Pulse Ox O2 Delivery O2 Flow Rate FiO2 03/17/19 18:52 70 18 100 Simple Mask 6.0 40 72 16 99 03/17/19 18:52 99 Simple Mask 6.0 38 03/17/19 16:00 96.4 75 19 116/50 (72) 98 03/17/19 16:00 Bi-pap 03/17/19 16:00 74 03/17/19 13:58 121/51 03/17/19 13:29 68 20 100 Simple Mask 6.0 40 70 18 100 03/17/19 12:00 Bi-pap 03/17/19 12:00 98.2 62 18 121/51 (74) 98 03/17/19 12:00 62 03/17/19 08:00 98.1 66 18 95/52 (66) 100 03/17/19 08:00 Bi-pap 03/17/19 08:00 65 03/17/19 07:34 100 Bi-Pap 35 03/17/19 07:29 60 28 100 Facial 35 60 26 100 Bi-Pap 03/17/19 04:43 58 21 99 Facial 35 03/17/19 04:35 60 20 99 Bi-Pap 35 03/17/19 04:00 Bi-pap 03/17/19 04:00 96.8 62 19 125/54 (77) 99 03/17/19 03:35 61 1/20/20 03:13 61 20 99 Facial 35 03/17/19 01:31 58 18 100 Facial 35 60 16 100 Bi-Pap 03/17/19 00:00 96.8 60 20 118/54 (75) 100 03/17/19 00:00 Bi-pap 03/16/19 23:31 60 03/16/19 23:10 60 20 100 Facial 35 03/16/19 21:03 64 21 99 Facial 35 03/16/19 20:20 67 25 100 Facial 35 67 22 100 Bi-Pap 03/16/19 20:20 98 Bi-Pap 35 03/16/19 20:00 96.6 61 18 126/59 (81) 100 03/16/19 20:00 Bi-pap 03/16/19 19:46 62 Intake and Output 03/16/19 03/17/19 19:00 07:00 Intake Total 650 ml 55 ml Balance 650 ml 55 ml Free Water 100 ml IV Total 360 ml 55 ml Tube Feeding 190 ml # Bowel Movements 1 3 Laboratory Tests 03/17/19 03:25: White Blood Count 8.3, Red Blood Count 2.57L, Hemoglobin 8.1L, Hematocrit 25.2L , Mean Corpuscular Volume 98, Mean Corpuscular Hemoglobin 31.4H, Mean Corpuscular Hemoglobin Concent 32.1, Red Cell Distribution Width 14.9H, Platelet Count 55L, Mean Platelet Volume 7.6, Neutrophils (%) (Auto) , Lymphocytes (%) (Auto) , Monocytes (%) (Auto) , Eosinophils (%) (Auto) , Basophils (%) (Auto) , Differential Total Cells Counted 100, Neutrophils % ( Manual) 86H, Lymphocytes % (Manual) 9L, Monocytes % (Manual) 5, Eosinophils % ( Manual) 0, Basophils % (Manual) 0, Band Neutrophils 0, Platelet Estimate DecreasedL, Platelet Morphology Normal, Hypochromasia 1+, Anisocytosis 1+, Sodium Level 142, Potassium Level 3.7, Chloride Level 101, Carbon Dioxide Level 30, Anion Gap 11, Blood Urea Nitrogen 67H, Creatinine 7.0H, Estimat Glomerular Filtration Rate , Glucose Level 123H, Calcium Level 8.3L, Total Bilirubin 0.8, Aspartate Amino Transf (AST/SGOT) 54H, Alanine Aminotransferase (ALT/SGPT) 30, Alkaline Phosphatase 172H, Total Protein 6.2L, Albumin 2.2L, Globulin 4.0, Albumin/Globulin Ratio 0.6L 03/17/19 16:13: Arterial Blood pH 7.440, Arterial Blood Partial Pressure CO2 51.0H, Arterial Blood Partial Pressure O2 < 45.3*L, Arterial Blood HCO3 33.9H, Arterial Blood Oxygen Saturation 50.9*L, Arterial Blood Base Excess 8.6H, Wyatt Test Positive 03/17/19 17:55: White Blood Count 9.2, Red Blood Count 2.69L, Hemoglobin 8.6L, Hematocrit 26.4L , Mean Corpuscular Volume 98, Mean Corpuscular Hemoglobin 31.8H, Mean Corpuscular Hemoglobin Concent 32.3, Red Cell Distribution Width 15.0H, Platelet Count 75L, Mean Platelet Volume 9.3, Neutrophils (%) (Auto) 87.5H, Lymphocytes (%) (Auto) 5.7L, Monocytes (%) (Auto) 5.8, Eosinophils (%) (Auto) 0.6, Basophils (%) (Auto) 0.4, Prostate Specific Antigen 9.09H Height (Feet): 5 Height (Inches): 5.00 Weight (Pounds): 134 General Appearance: WD/WN, no apparent distress Neck: supple Cardiovascular: normal rate Respiratory/Chest: rhonchi - bilaterally Abdomen: soft Viktor García MD Mar 17, 2019 19:46
[2019-03-17 19:52] LABS: INR 1.1 (0.9-1.1)
[2019-03-17 20:00] VITALS: BP 123/56
--- NOTE | 2019-03-17 20:15 | NUR ---
NURSE NOTES: Pt is increasingly agitated: pulling on oxygen tubing, school bus monitor leads, and PIV lines. Pt has order for soft wrist restaints PRN, applied as ordered. Skin is intact, extra padding place on previously ecchymotic areas, radial pulses palpable. Pt is clean and dry. Call light with reach, bed in lowest position, bed alarm armed. O2 monitor alarms settings on high. Will monitor closely.
[2019-03-17] MEDS: Atorvastatin 20mg tab NG SCH (20:35)
[2019-03-17] MEDS: Tamsulosin 0.4mg cap ORAL SCH (20:36)
[2019-03-17] MEDS: Epoetin Alfa-EPBX(ESRD on dialysis)3000 units/ml vial SUBQ SCH (21:03)
[2019-03-17] MEDS: Epoetin Alfa-EPBX(ESRD on dialysis)4000 units/ml vial SUBQ SCH (21:03)
[2019-03-17] MEDS: Cefepime HCl 1 GM in D5W 55 ML IVPB SCH (21:04)
[2019-03-18] VITALS: BP 116/57
[2019-03-18] MEDS: Albuterol/Ipratropium 3ml neb HHN SCH ×4 (01:04→18:56)
--- NOTE | 2019-03-18 03:00 | Progress Note ---
DATE: 03/17/2019 SUBJECTIVE: The patient is in bed, in no acute distress. The patient is now DNR/DNI. No aggressive measures for the patient per the patient's family's request. The patient is weak and lethargic. Per nursing, the patient has episodes of agitation. MENTAL STATUS EXAMINATION: The patient is having waxing and waning consciousness. Mood is anxious, agitation. Affect is flat. Thought process is disorganized. Thought content, no suicidal or homicidal ideation. Cognition is impaired. ASSESSMENT: Dementia with behavior disturbance. PLAN: 1. Continue risperidone 1 mg at bedtime. 2. Continue lorazepam p.r.n. 3. We will continue to follow and readjust the medication. Zi Carrera M.D. DR: FERNANDO JOB#: [id number] CC:
[2019-03-18 04:00] VITALS: BP 103/60
[2019-03-18 05:34] LABS: HEMATOCRIT 27.2 % (42.0-52.0); HEMOGLOBIN 8.6 G/DL (14.2-18.0); MEAN CORPUSCULAR VOLUME 99 FL (80-99); PLATELET COUNT 78 K/UL (150-450); RED BLOOD COUNT 2.75 M/UL (4.70-6.10); RED CELL DISTRIBUTION WIDTH 15.2 % (11.6-14.8); WHITE BLOOD COUNT 8.1 K/UL (4.8-10.8)
[2019-03-18 05:58] LABS: ANION GAP 10 mmol/L (5-15); BLOOD UREA NITROGEN 36 mg/dL (7-18); CALCIUM 8.4 MG/DL (8.5-10.1); CARBON DIOXIDE 32 MMOL/L (21-32); CHLORIDE 101 MMOL/L (98-107); POTASSIUM 3.5 MMOL/L (3.5-5.1); SODIUM 143 MMOL/L (136-145)
--- NOTE | 2019-03-18 06:02 | Hematology/Onc Progress Note ---
Assessment/Plan Assessment/Plan Assessment and Recs: # Thrombocytopenia -- i have seen him in the past and reviewed platelet trend for the past 1-2 years and this is at an all time low, likely related to infection/reactive process --> plt trend 115-->87-->7-->58-->55-->75 --> smear has been reviewed --> meds are noted --> dw pcp, will HOLD OFF ELIQUIS FOR NOW given also low H/H --> IF THE PLATELET COUNT STABilizes, consider to restart eliquis # Anemia due to chronic disease -- hgb trending at 9-11 --> consider anemia panel, reviewed from prior admission --> does not require iron at this time --> hold off on iron --> hgb trend 10.7-->10-->8.1-->8.6 --> EPOGEN HAS BEEN STARTED # Secondary hypercoagulable disorder, no afib, but has pvd and stroke ppx --> HOLD ELIQUIS --> continue if plt >50k and h/h stable # ESRD (end stage renal disease) --> as per Neprho --> TTF --> reviewed Dr. Brandt recs # Hypotension --> fluids as needed # RLL on cxr --> on broad spectrum abx --> as per id # Diabetes --> a1c goal <8, iss, accuchecks # NSTEMI with elev trop may be due to esrd --> as per cards management, asa bb, lipitor # Dysphagia. Family refused PEG # Respiratory failure on BIPAP. DNR now # Dvt ppx scds Appreciate consultation and enrique RN Subjective HEENT: Denies: no symptoms, eye pain, blurred vision, tearing, double vision, ear pain, ear discharge, nose pain, nose congestion, throat pain, throat swelling, mouth pain, mouth swelling, other Cardiovascular: Denies: no symptoms, chest pain, edema, irregular heart rate, lightheadedness, palpitations, syncope, other Respiratory: Denies: no symptoms, cough, shortness of breath, SOB with excertion, SOB at rest, sputum, wheezing, other Gastrointestinal/Abdominal: Denies: no symptoms, abdomen distended, abdominal pain, black stools, tarry stools, blood in stool, constipated, diarrhea, difficulty swallowing, nausea, poor appetite, poor fluid intake, rectal bleeding , vomiting, other Genitourinary: Denies: no symptoms, burning, discharge, frequency, flank pain, hematuria, incontinence, pain, urgency, other Neurologic/Psychiatric: Denies: no symptoms, anxiety, depressed, emotional problems, headache, numbness, paresthesia, pre-existing deficit, seizure, tingling, tremors, weakness, other Endocrine: Denies: no symptoms, excessive sweating, flushing, intolerance to cold, intolerance to heat, increased hunger, increased thirst, increased urine, unexplained weight gain, unexplained weight loss, other Hematologic/Lymphatic: Denies: no symptoms, anemia, easy bleeding, easy bruising, adenopathy, other Allergies: Coded Allergies: No Known Allergies (Unverified , 05/25/13) Subjective 03/18/19: remains confused, nonverbal, labs reviewed, meds noted Objective Objective Current Medications Medications (Trade) Dose Ordered Sig/Stephany Route PRN Reason Start Time Stop Time Status Last Admin Dose Admin Acetaminophen (Tylenol) 650 mg Q6H PRN ORAL Mild Pain/Temp > 100.5 03/09/19 07:01 04/07/19 07:00 03/10/19 03:10 Albuterol/ Ipratropium (Albuterol/ Ipratropium) 3 ml Q6HRT HHN 03/14/19 19:00 03/19/19 18:59 03/18/19 01:04 Aspirin (ASA) 81 mg DAILY NG 03/16/19 09:00 04/07/19 08:59 03/16/19 08:19 Atorvastatin Calcium (Lipitor) 20 mg BEDTIME NG 03/15/19 21:00 04/07/19 20:59 03/15/19 21:04 Carvedilol (Coreg) 3.125 mg EVERY 12 HOURS NG 03/15/19 21:00 04/09/19 20:59 03/16/19 08:19 Cefepime HCl 1 gm/ Dextrose 55 ml @ 110 mls/hr Q24H IVPB 03/14/19 21:00 03/21/19 20:59 03/17/19 21:04 Clonidine HCl (Catapres Tab) 0.1 mg Q8H PRN SL For High Blood Pressure 03/11/19 20:00 04/10/19 19:59 Dextrose 1,000 ml @ 30 mls/hr Q24H IV 03/09/19 14:07 04/08/19 14:06 03/17/19 13:58 Dextrose (Dextrose 50%) 25 ml Q30M PRN IV Hypoglycemia 03/09/19 07:00 04/07/19 06:59 Dextrose (Dextrose 50%) 50 ml Q30M PRN IV Hypoglycemia 03/09/19 07:00 04/07/19 06:59 Docusate Sodium (Colace) 100 mg THREE TIMES A DAY NG 03/15/19 18:00 04/14/19 17:59 03/16/19 17:26 Epoetin Best (Epoetin Best(ESRD on dialysis)) 3,000 unit SUN- SUBQ 03/17/19 21:00 04/16/19 20:59 03/17/19 21:03 Epoetin Best (Epoetin Best(ESRD on dialysis)) 4,000 unit SUBQ 03/17/19 21:00 04/16/19 20:59 03/17/19 21:03 Finasteride (Proscar) 5 mg DAILY ORAL 03/16/19 09:00 04/07/19 08:59 03/16/19 08:11 Fluticasone Propionate (Flonase) 2 spray DAILY NASAL 03/09/19 09:00 04/07/19 08:59 03/17/19 08:42 Guaifenesin/ Codeine Phosphate (Robitussin with codeine) 5 ml Q4H PRN ORAL For Cough 03/09/19 07:00 04/07/19 06:59 03/10/19 03:09 Hydralazine HCl (Apresoline) 25 mg Q4H PRN NG bp over 160 syst 03/15/19 19:03 04/07/19 07:02 Lisinopril (ZestriL) 10 mg DAILY NG 03/16/19 09:00 04/10/19 08:59 03/16/19 08:20 Lorazepam (Ativan) 1 mg Q6H PRN ORAL For Anxiety 03/12/19 12:28 03/19/19 12:27 Nitroglycerin (Ntg) 1 patch Q24H TDERMAL 03/09/19 14:30 04/08/19 14:29 03/17/19 13:58 Ondansetron HCl (Zofran) 4 mg Q4H PRN IVP Nausea & Vomiting 03/09/19 07:03 04/08/19 07:02 03/10/19 03:09 Pantoprazole (Protonix) 40 mg BID IVP 03/15/19 18:00 04/14/19 17:59 03/17/19 17:06 Risperidone (RisperDAL) 1 mg BEDTIME NG 03/15/19 21:00 04/11/19 20:59 03/15/19 21:04 Sevelamer Carbonate (Renvela) 1,600 mg THREE TIMES A DAY NG 03/15/19 18:00 04/14/19 17:59 03/16/19 17:26 Tamsulosin HCl (Flomax) 0.4 mg BEDTIME ORAL 03/09/19 21:00 04/07/19 20:59 03/15/19 21:04 Vitamin D (Vitamin D) 1,000 intlu DAILY ORAL 03/16/19 09:00 04/15/19 08:59 03/16/19 08:10 Last 24 Hour Vital Signs Date Time Temp Pulse Resp B/P (MAP) Pulse Ox O2 Delivery O2 Flow Rate FiO2 03/18/19 04:00 Bi-pap 03/18/19 04:00 98.4 75 20 103/60 (74) 100 03/18/19 04:00 74 03/18/19 01:04 70 18 100 Simple Mask 6.0 40 77 18 99 03/18/19 00:00 98.3 70 19 116/57 (76) 100 03/18/19 00:00 Bi-pap 03/17/19 20:34 72 123/56 03/17/19 20:00 97.7 72 19 123/56 (78) 100 72 03/17/19 20:00 Bi-pap 03/17/19 20:00 72 03/17/19 18:52 70 18 100 Simple Mask 6.0 40 72 16 99 03/17/19 18:52 99 Simple Mask 6.0 38 03/17/19 16:00 96.4 75 19 116/50 (72) 98 03/17/19 16:00 Bi-pap 03/17/19 16:00 74 03/17/19 13:58 121/51 03/17/19 13:29 68 20 100 Simple Mask 6.0 40 70 18 100 03/17/19 12:00 Bi-pap 03/17/19 12:00 98.2 62 18 121/51 (74) 98 03/17/19 12:00 62 03/17/19 08:00 98.1 66 18 95/52 (66) 100 03/17/19 08:00 Bi-pap 03/17/19 08:00 65 03/17/19 07:34 100 Bi-Pap 35 03/17/19 07:29 60 28 100 Facial 35 60 26 100 Bi-Pap 03/17/19 04:43 58 21 99 Facial 35 03/17/19 04:35 60 20 99 Bi-Pap 35 03/17/19 04:00 Bi-pap 03/17/19 04:00 96.8 62 19 125/54 (77) 99 03/17/19 03:35 61 03/17/19 03:13 61 20 99 Facial 35 03/17/19 01:31 58 18 100 Facial 35 60 16 100 Bi-Pap 03/17/19 00:00 96.8 60 20 118/54 (75) 100 03/17/19 00:00 Bi-pap 03/16/19 23:31 60 03/16/19 23:10 60 20 100 Facial 35 03/16/19 21:03 64 21 99 Facial 35 03/16/19 20:20 67 25 100 Facial 35 67 22 100 Bi-Pap 03/16/19 20:20 98 Bi-Pap 35 03/16/19 20:00 96.6 61 18 126/59 (81) 100 03/16/19 20:00 Bi-pap 03/16/19 19:46 62 03/16/19 18:41 61 14 97 Facial 35 03/16/19 17:20 59 14 95 Facial 35 03/16/19 16:00 Bi-pap 03/16/19 16:00 96.5 63 20 109/46 (67) 99 03/16/19 15:26 63 03/16/19 15:16 109/54 03/16/19 14:46 63 35 100 Facial 35 03/16/19 13:20 65 26 100 Facial 35 03/16/19 12:00 Bi-pap 03/16/19 12:00 60 03/16/19 12:00 97.5 60 20 109/54 (72) 100 03/16/19 11:04 60 22 99 Facial 35 03/16/19 09:06 63 18 100 Facial 35 03/16/19 08:42 65 03/16/19 08:20 110/40 03/16/19 08:19 60 110/40 03/16/19 08:00 Bi-pap 03/16/19 08:00 96.4 65 19 116/40 (65) 99 03/16/19 07:02 98 Bi-Pap 35 03/16/19 07:00 66 22 98 Facial 35 62 24 100 Bi-Pap Intake and Output 03/17/19 03/18/19 19:00 07:00 Intake Total 3150 ml 355 ml Balance 3150 ml 355 ml IV Total 150 ml 355 ml Hemodialysis 3000 ml # Bowel Movements 3 3 Labs Test 03/16/19 03:38 03/17/19 03:25 03/17/19 16:13 03/17/19 17:55 White Blood Count 8.4 K/UL (4.8-10.8) 8.3 K/UL (4.8-10.8) 9.2 K/UL (4.8-10.8) Red Blood Count 2.66 M/UL (4.70-6.10) 2.57 M/UL (4.70-6.10) 2.69 M/UL (4.70-6.10) Hemoglobin 8.5 G/DL (14.2-18.0) 8.1 G/DL (14.2-18.0) 8.6 G/DL (14.2-18.0) Hematocrit 26.3 % (42.0-52.0) 25.2 % (42.0-52.0) 26.4 % (42.0-52.0) Mean Corpuscular Volume 99 FL (80-99) 98 FL (80-99) 98 FL (80-99) Mean Corpuscular Hemoglobin 31.8 PG (27.0-31.0) 31.4 PG (27.0-31.0) 31.8 PG (27.0-31.0) Mean Corpuscular Hemoglobin Concent 32.2 G/DL (32.0-36.0) 32.1 G/DL (32.0-36.0) 32.3 G/DL (32.0-36.0) Red Cell Distribution Width 15.0 % (11.6-14.8) 14.9 % (11.6-14.8) 15.0 % (11.6-14.8) Platelet Count 58 K/UL (150-450) 55 K/UL (150-450) 75 K/UL (150-450) Mean Platelet Volume 7.9 FL (6.5-10.1) 7.6 FL (6.5-10.1) 9.3 FL (6.5-10.1) Neutrophils (%) (Auto) % (45.0-75.0) % (45.0-75.0) 87.5 % (45.0-75.0) Lymphocytes (%) (Auto) % (20.0-45.0) % (20.0-45.0) 5.7 % (20.0-45.0) Monocytes (%) (Auto) % (1.0-10.0) % (1.0-10.0) 5.8 % (1.0-10.0) Eosinophils (%) (Auto) % (0.0-3.0) % (0.0-3.0) 0.6 % (0.0-3.0) Basophils (%) (Auto) % (0.0-2.0) % (0.0-2.0) 0.4 % (0.0-2.0) Differential Total Cells Counted 100 100 Neutrophils % (Manual) 76 % (45-75) 86 % (45-75) Lymphocytes % (Manual) 8 % (20-45) 9 % (20-45) Monocytes % (Manual) 1 % (1-10) 5 % (1-10) Eosinophils % (Manual) 0 % (0-3) 0 % (0-3) Basophils % (Manual) 0 % (0-2) 0 % (0-2) Band Neutrophils 15 % (0-8) 0 % (0-8) Platelet Estimate Decreased Decreased Platelet Morphology Normal Normal Hypochromasia 1+ 1+ Anisocytosis 1+ 1+ Sodium Level 138 MMOL/L (136-145) 142 MMOL/L (136-145) Potassium Level 3.2 MMOL/L (3.5-5.1) 3.7 MMOL/L (3.5-5.1) Chloride Level 101 MMOL/L (98-107) 101 MMOL/L (98-107) Carbon Dioxide Level 33 MMOL/L (21-32) 30 MMOL/L (21-32) Anion Gap 4 mmol/L (5-15) 11 mmol/L (5-15) Blood Urea Nitrogen 54 mg/dL (7-18) 67 mg/dL (7-18) Creatinine 6.0 MG/DL (0.55-1.30) 7.0 MG/DL (0.55-1.30) Estimat Glomerular Filtration Rate mL/min (>60) mL/min (>60) Glucose Level 130 MG/DL (74-106) 123 MG/DL (74-106) Calcium Level 8.3 MG/DL (8.5-10.1) 8.3 MG/DL (8.5-10.1) Phosphorus Level 5.0 MG/DL (2.5-4.9) Magnesium Level 2.3 MG/DL (1.8-2.4) Total Bilirubin 0.8 MG/DL (0.2-1.0) 0.8 MG/DL (0.2-1.0) Aspartate Amino Transf (AST/SGOT) 67 U/L (15-37) 54 U/L (15-37) Alanine Aminotransferase (ALT/SGPT) 30 U/L (12-78) 30 U/L (12-78) Alkaline Phosphatase 189 U/L (46-116) 172 U/L (46-116) C-Reactive Protein, Quantitative 31.4 mg/dL (0.00-0.90) Pro-B-Type Natriuretic Peptide > 97595 pg/mL (0-125) Total Protein 6.3 G/DL (6.4-8.2) 6.2 G/DL (6.4-8.2) Albumin 2.3 G/DL (3.4-5.0) 2.2 G/DL (3.4-5.0) Globulin 4.0 g/dL 4.0 g/dL Albumin/Globulin Ratio 0.6 (1.0-2.7) 0.6 (1.0-2.7) Arterial Blood pH 7.440 (7.350-7.450) Arterial Blood Partial Pressure CO2 51.0 mmHg (35.0-45.0) Arterial Blood Partial Pressure O2 < 45.3 mmHg (75.0-100.0) Arterial Blood HCO3 33.9 mmol/L (22.0-26.0) Arterial Blood Oxygen Saturation 50.9 % (95-100) Arterial Blood Base Excess 8.6 (-2-2) Wyatt Test Positive Prostate Specific Antigen 9.09 ng/mL (0.13-4.0) Test 03/17/19 19:15 03/18/19 04:00 Prothrombin Time 11.4 SEC (9.30-11.50) Prothromb Time International Ratio 1.1 (0.9-1.1) White Blood Count 8.1 K/UL (4.8-10.8) Red Blood Count 2.75 M/UL (4.70-6.10) Hemoglobin 8.6 G/DL (14.2-18.0) Hematocrit 27.2 % (42.0-52.0) Mean Corpuscular Volume 99 FL (80-99) Mean Corpuscular Hemoglobin 31.3 PG (27.0-31.0) Mean Corpuscular Hemoglobin Concent 31.7 G/DL (32.0-36.0) Red Cell Distribution Width 15.2 % (11.6-14.8) Platelet Count 78 K/UL (150-450) Mean Platelet Volume 8.0 FL (6.5-10.1) Neutrophils (%) (Auto) % (45.0-75.0) Lymphocytes (%) (Auto) % (20.0-45.0) Monocytes (%) (Auto) % (1.0-10.0) Eosinophils (%) (Auto) % (0.0-3.0) Basophils (%) (Auto) % (0.0-2.0) Height (Feet): 5 Height (Inches): 5.00 Weight (Pounds): 134 Objective Vitals: reviewed, normal Gen: no apparent distress, alert, GCS 15, non-toxic HEENT: normocephalic, atraumatic Resp: chest non-tender, lungs clear, normal Bss CV: rrr, no edema, no gallop, no JVD, no murmur Gastrointestinal: normal bowel sounds, non tender, soft, non-distended Msk: normal range of motion, non-tender, calf tenderness, + AV access LUE + thrill + bruit Neurologic: alert, oriented x3, responsive Psychiatric: judgement/insight normal, memory normal, depressed affect Reflexes: 3+ knee (L), 3+ ankle (R) Skin: normal color, no rash, warm/dry, well hydrated Lymphatic: no trip Gigi Aguirre MD Mar 18, 2019 06:02
--- NOTE | 2019-03-18 07:18 | NUR ---
HAND-OFF: Report given to Eloise Solomon RN. Pt in stable condition.
--- NOTE | 2019-03-18 07:19 | NUR ---
NURSE NOTES: Received patient in bed. On bipap. In no apparent distress at this time. With bilateral soft wrist restraints. Bed in lowest position. On continuous IVF per order. Bilateral lower extremity SCD's on. Contact isolation observed. Will continue plan of care.
[2019-03-18 08:00] VITALS: BP 105/65
[2019-03-18] MEDS: Pantoprazole Inj IVP SCH ×2 (08:23→22:55)
--- NOTE | 2019-03-18 08:33 | NUR ---
NURSE NOTES: Bilateral soft wrist restraints removed, discontinued. Charge nurse made aware. Patient remains calm in bed, on continuous bipap.
[2019-03-18] MEDS: Vitamin D 1000 IU Tab ORAL SCH (09:00)
[2019-03-18] MEDS: Aspirin Baby 81mg NG SCH (09:00)
[2019-03-18] MEDS: Flonase Nasal Inhaler 16gm NASAL SCH (09:00)
[2019-03-18] MEDS: Renvela 800mg Pkt NG SCH ×3 (09:00→18:00)
[2019-03-18] MEDS: Lisinopril 10mg tab NG SCH (09:00)
[2019-03-18] MEDS: Docusate 100mg/10ml Liq NG SCH ×3 (09:00→18:00)
--- NOTE | 2019-03-18 09:12 | Pulmonology Progress Note ---
Assessment/Plan Problems: (1) NSTEMI (non-ST elevated myocardial infarction) (2) ESRD (end stage renal disease) on dialysis (3) Cardiomyopathy (4) HTN (hypertension) (5) HLD (hyperlipidemia) (6) CVA (cerebral vascular accident) Assessment/Plan ASSESSMENT: The patient is an 83-year-old male with a history of prior CVA, end -stage renal disease, on dialysis, hypertension, hyperlipidemia, CAD, CVA, and BPH presenting with dizziness and [id number] MO. He is fairly stable from a respiratory standpoint. PROBLEM LIST: 1. Non ST-elevation myocardial infarction. 2. Recent pneumonia. 3. Dizziness. 4. End-stage renal disease, on dialysis. 5. CAD. 6. Hypertension. 7. Hyperlipidemia. 8. Anemia. 9. Diabetes. TREATMENT PLAN: NO escalation, no ICU transfer Optimize pulmonary hygiene/mobilize as tolerated. Continue BiPAP for now, attempt to wean off Titrate O2 HHN's Abx: Cefepime Follow up Cardiology recommendations, medical management of non-STEMI. AC held 2/2 thrombocytopenia Monitor volumes and renal function, dialysis per Renal. DNAR/DNI Subjective Allergies: Coded Allergies: No Known Allergies (Unverified , 05/25/13) Subjective On BiPAP lethargic + cough + SOB Per family no PEG/NGT, DNAR Objective Last 24 Hour Vital Signs Date Time Temp Pulse Resp B/P (MAP) Pulse Ox O2 Delivery O2 Flow Rate FiO2 03/18/19 08:00 Bi-pap 03/18/19 08:00 96.5 74 34 105/65 (78) 90 03/18/19 07:04 70 34 99 Facial 35 70 32 99 Bi-Pap 03/18/19 06:59 98 Bi-Pap 35 03/18/19 05:30 50 03/18/19 04:00 Bi-pap 03/18/19 04:00 98.4 75 20 103/60 (74) 100 03/18/19 04:00 74 03/18/19 01:04 70 18 100 Simple Mask 6.0 40 77 18 99 03/18/19 00:00 98.3 70 19 116/57 (76) 100 03/18/19 00:00 Bi-pap 03/17/19 20:34 72 123/56 03/17/19 20:00 97.7 72 19 123/56 (78) 100 72 03/17/19 20:00 Bi-pap 03/17/19 20:00 72 03/17/19 18:52 70 18 100 Simple Mask 6.0 40 72 16 99 03/17/19 18:52 99 Simple Mask 6.0 38 03/17/19 16:00 96.4 75 19 116/50 (72) 98 03/17/19 16:00 Bi-pap 03/17/19 16:00 74 03/17/19 13:58 121/51 03/17/19 13:29 68 20 100 Simple Mask 6.0 40 70 18 100 03/17/19 12:00 Bi-pap 03/17/19 12:00 98.2 62 18 121/51 (74) 98 03/17/19 12:00 62 Intake and Output 03/17/19 03/18/19 19:00 07:00 Intake Total 3150 ml 385 ml Balance 3150 ml 385 ml IV Total 150 ml 385 ml Hemodialysis 3000 ml # Bowel Movements 3 3 General Appearance: no acute distress, other - BiPAP HEENT: normocephalic, atraumatic, anicteric Respiratory/Chest: crackles/rales Cardiovascular: normal peripheral pulses, normal rate, regular rhythm Abdomen: normal bowel sounds, soft, non tender, no organomegaly, non distended , no mass Extremities: no cyanosis, no clubbing, no edema Laboratory Tests 03/17/19 16:13: Arterial Blood pH 7.440, Arterial Blood Partial Pressure CO2 51.0H, Arterial Blood Partial Pressure O2 < 45.3*L, Arterial Blood HCO3 33.9H, Arterial Blood Oxygen Saturation 50.9*L, Arterial Blood Base Excess 8.6H, Wyatt Test Positive 03/17/19 17:55: White Blood Count 9.2, Red Blood Count 2.69L, Hemoglobin 8.6L, Hematocrit 26.4L , Mean Corpuscular Volume 98, Mean Corpuscular Hemoglobin 31.8H, Mean Corpuscular Hemoglobin Concent 32.3, Red Cell Distribution Width 15.0H, Platelet Count 75L, Mean Platelet Volume 9.3, Neutrophils (%) (Auto) 87.5H, Lymphocytes (%) (Auto) 5.7L, Monocytes (%) (Auto) 5.8, Eosinophils (%) (Auto) 0.6, Basophils (%) (Auto) 0.4, Prostate Specific Antigen 9.09H 03/17/19 19:15: Prothrombin Time 11.4, Prothromb Time International Ratio 1.1 03/18/19 04:00: White Blood Count 8.1, Red Blood Count 2.75L, Hemoglobin 8.6L, Hematocrit 27.2L , Mean Corpuscular Volume 99, Mean Corpuscular Hemoglobin 31.3H, Mean Corpuscular Hemoglobin Concent 31.7L, Red Cell Distribution Width 15.2H, Platelet Count 78L, Mean Platelet Volume 8.0, Neutrophils (%) (Auto) , Lymphocytes (%) (Auto) , Monocytes (%) (Auto) , Eosinophils (%) (Auto) , Basophils (%) (Auto) , Differential Total Cells Counted 100, Neutrophils % ( Manual) 85H, Lymphocytes % (Manual) 6L, Monocytes % (Manual) 8, Eosinophils % ( Manual) 0, Basophils % (Manual) 1, Band Neutrophils 0, Platelet Estimate DecreasedL, Platelet Morphology Normal, Sodium Level 143, Potassium Level 3.5, Chloride Level 101, Carbon Dioxide Level 32, Anion Gap 10, Blood Urea Nitrogen 36H, Creatinine 5.0H, Estimat Glomerular Filtration Rate , Glucose Level 204H, Calcium Level 8.4L, Heparin-PF4 Antibody Screen [Pending] Current Medications Medications (Trade) Dose Ordered Sig/Stephany Route PRN Reason Start Time Stop Time Status Last Admin Dose Admin Acetaminophen (Tylenol) 650 mg Q6H PRN ORAL Mild Pain/Temp > 100.5 03/09/19 07:01 04/07/19 07:00 03/10/19 03:10 Albuterol/ Ipratropium (Albuterol/ Ipratropium) 3 ml Q6HRT HHN 03/14/19 19:00 03/19/19 18:59 03/18/19 07:08 Aspirin (ASA) 81 mg DAILY NG 03/16/19 09:00 04/07/19 08:59 03/16/19 08:19 Atorvastatin Calcium (Lipitor) 20 mg BEDTIME NG 03/15/19 21:00 04/07/19 20:59 03/15/19 21:04 Carvedilol (Coreg) 3.125 mg EVERY 12 HOURS NG 03/15/19 21:00 04/09/19 20:59 03/16/19 08:19 Cefepime HCl 1 gm/ Dextrose 55 ml @ 110 mls/hr Q24H IVPB 03/14/19 21:00 03/21/19 20:59 03/17/19 21:04 Clonidine HCl (Catapres Tab) 0.1 mg Q8H PRN SL For High Blood Pressure 03/11/19 20:00 04/10/19 19:59 Dextrose 1,000 ml @ 30 mls/hr Q24H IV 03/09/19 14:07 04/08/19 14:06 03/17/19 13:58 Dextrose (Dextrose 50%) 25 ml Q30M PRN IV Hypoglycemia 03/09/19 07:00 04/07/19 06:59 Dextrose (Dextrose 50%) 50 ml Q30M PRN IV Hypoglycemia 03/09/19 07:00 04/07/19 06:59 Docusate Sodium (Colace) 100 mg THREE TIMES A DAY NG 03/15/19 18:00 04/14/19 17:59 03/16/19 17:26 Epoetin Best (Epoetin Ebst(ESRD on dialysis)) 3,000 unit SUN-SUN-SUN SUBQ 03/17/19 21:00 04/16/19 20:59 03/17/19 21:03 Epoetin Best (Epoetin Best(ESRD on dialysis)) 4,000 unit SUN- SUBQ 03/17/19 21:00 04/16/19 20:59 03/17/19 21:03 Finasteride (Proscar) 5 mg DAILY ORAL 03/16/19 09:00 04/07/19 08:59 03/16/19 08:11 Fluticasone Propionate (Flonase) 2 spray DAILY NASAL 03/09/19 09:00 04/07/19 08:59 03/17/19 08:42 Guaifenesin/ Codeine Phosphate (Robitussin with codeine) 5 ml Q4H PRN ORAL For Cough 03/09/19 07:00 04/07/19 06:59 03/10/19 03:09 Hydralazine HCl (Apresoline) 25 mg Q4H PRN NG bp over 160 syst 03/15/19 19:03 04/07/19 07:02 Lisinopril (ZestriL) 10 mg DAILY NG 03/16/19 09:00 04/10/19 08:59 03/16/19 08:20 Lorazepam (Ativan) 1 mg Q6H PRN ORAL For Anxiety 03/12/19 12:28 03/19/19 12:27 Nitroglycerin (Ntg) 1 patch Q24H TDERMAL 03/09/19 14:30 04/08/19 14:29 03/17/19 13:58 Ondansetron HCl (Zofran) 4 mg Q4H PRN IVP Nausea & Vomiting 03/09/19 07:03 04/08/19 07:02 03/10/19 03:09 Pantoprazole (Protonix) 40 mg BID IVP 03/15/19 18:00 04/14/19 17:59 03/18/19 08:23 Risperidone (RisperDAL) 1 mg BEDTIME NG 03/15/19 21:00 04/11/19 20:59 03/15/19 21:04 Sevelamer Carbonate (Renvela) 1,600 mg THREE TIMES A DAY NG 03/15/19 18:00 04/14/19 17:59 03/16/19 17:26 Tamsulosin HCl (Flomax) 0.4 mg BEDTIME ORAL 03/09/19 21:00 04/07/19 20:59 03/15/19 21:04 Vitamin D (Vitamin D) 1,000 intlu DAILY ORAL 03/16/19 09:00 04/15/19 08:59 03/16/19 08:10 Thaddeus Cornelius MD Mar 18, 2019 09:12
--- NOTE | 2019-03-18 10:43 | NUR ---
SEED TECHNICIAN CONSULT LESLY received a referral for end of life on 03/17/2019. LESLY reviewed the chart and notes that pt's daughter Jasmin Dominguez [phone] is hoping DNR w/ selective treatment and no artificial means of nutrition on 03/17/2019. LESLY left a vm to Jasmin Dominguez [phone] for call back. Per chart review, pt has two emergency contacts: Padmini Dominguez(daughter) [phone] and Jasmin Dominguez (daughter) [phone]. Signed: 03/18/19 at 1046 by LI GRACE <Co-Signature Required>
--- NOTE | 2019-03-18 10:54 | Cardiac Electrophysiology PN ---
Assessment/Plan Assessment/Plan 1. Troponin elevation, could be due to renal failure. Troponin peak is 3.5 that is coming down to 1.88. Confused in restraints. No CP or SOB. EKG no acute changes. EF 40-45% On aspirin, Coreg 3.125 bid and Lipitor. Will treat medically as DNR and DNI 2. Cardiomyopathy with EF of 40%. BNP is more than 35,000. Echo on 02/02/2019 showed EF of 55% to 60%, repeat echocardiogram showed EF 40%. On Coreg, Lisinopril 10 daily and HD 3. On Eliquis for CVA and PVD. No Fib or DVT or PE 4. End-stage renal disease, on hemodialysis. 5. Lactic acidosis. 6. Hyperlipidemia, on Lipitor. 7. Dysphagia. Family refused PEG 8. Respiratory failure on BIPAP. 9. DNR and DNI DW RN Subjective Subjective On BIPAP now. DNR and DNI now. Objective Last 24 Hour Vital Signs Date Time Temp Pulse Resp B/P (MAP) Pulse Ox O2 Delivery O2 Flow Rate FiO2 03/18/19 09:32 70 38 91 Facial 35 03/18/19 08:00 Bi-pap 03/18/19 08:00 96.5 74 34 105/65 (78) 90 03/18/19 07:53 76 03/18/19 07:04 70 34 99 Facial 35 70 32 99 Bi-Pap 03/18/19 06:59 98 Bi-Pap 35 03/18/19 05:30 50 03/18/19 04:00 Bi-pap 03/18/19 04:00 98.4 75 20 103/60 (74) 100 03/18/19 04:00 74 03/18/19 01:04 70 18 100 Simple Mask 6.0 40 77 18 99 03/18/19 00:00 98.3 70 19 116/57 (76) 100 03/18/19 00:00 Bi-pap 03/17/19 20:34 72 123/56 03/17/19 20:00 97.7 72 19 123/56 (78) 100 72 03/17/19 20:00 Bi-pap 03/17/19 20:00 72 03/17/19 18:52 70 18 100 Simple Mask 6.0 40 72 16 99 03/17/19 18:52 99 Simple Mask 6.0 38 03/17/19 16:00 96.4 75 19 116/50 (72) 98 03/17/19 16:00 Bi-pap 03/17/19 16:00 74 03/17/19 13:58 121/51 03/17/19 13:29 68 20 100 Simple Mask 6.0 40 70 18 100 03/17/19 12:00 Bi-pap 03/17/19 12:00 98.2 62 18 121/51 (74) 98 03/17/19 12:00 62 Intake and Output 03/17/19 03/18/19 19:00 07:00 Intake Total 3150 ml 415 ml Balance 3150 ml 415 ml IV Total 150 ml 415 ml Hemodialysis 3000 ml # Bowel Movements 3 3 Laboratory Tests Test 03/17/19 16:13 03/17/19 17:55 03/17/19 19:15 03/18/19 04:00 Arterial Blood pH 7.440 (7.350-7.450) Arterial Blood Partial Pressure CO2 51.0 mmHg (35.0-45.0) H Arterial Blood Partial Pressure O2 < 45.3 mmHg (75.0-100.0) Arterial Blood HCO3 33.9 mmol/L (22.0-26.0) H Arterial Blood Oxygen Saturation 50.9 % (95-100) *L Arterial Blood Base Excess 8.6 (-2-2) H Wyatt Test Positive White Blood Count 9.2 K/UL (4.8-10.8) 8.1 K/UL (4.8-10.8) Red Blood Count 2.69 M/UL (4.70-6.10) L 2.75 M/UL (4.70-6.10) L Hemoglobin 8.6 G/DL (14.2-18.0) L 8.6 G/DL (14.2-18.0) L Hematocrit 26.4 % (42.0-52.0) L 27.2 % (42.0-52.0) L Mean Corpuscular Volume 98 FL (80-99) 99 FL (80-99) Mean Corpuscular Hemoglobin 31.8 PG (27.0-31.0) H 31.3 PG (27.0-31.0) H Mean Corpuscular Hemoglobin Concent 32.3 G/DL (32.0-36.0) 31.7 G/DL (32.0-36.0) L Red Cell Distribution Width 15.0 % (11.6-14.8) H 15.2 % (11.6-14.8) H Platelet Count 75 K/UL (150-450) L 78 K/UL (150-450) L Mean Platelet Volume 9.3 FL (6.5-10.1) 8.0 FL (6.5-10.1) Neutrophils (%) (Auto) 87.5 % (45.0-75.0) H % (45.0-75.0) Lymphocytes (%) (Auto) 5.7 % (20.0-45.0) L % (20.0-45.0) Monocytes (%) (Auto) 5.8 % (1.0-10.0) % (1.0-10.0) Eosinophils (%) (Auto) 0.6 % (0.0-3.0) % (0.0-3.0) Basophils (%) (Auto) 0.4 % (0.0-2.0) % (0.0-2.0) Prostate Specific Antigen 9.09 ng/mL (0.13-4.0) H Prothrombin Time 11.4 SEC (9.30-11.50) Prothromb Time International Ratio 1.1 (0.9-1.1) Differential Total Cells Counted 100 Neutrophils % (Manual) 85 % (45-75) H Lymphocytes % (Manual) 6 % (20-45) L Monocytes % (Manual) 8 % (1-10) Eosinophils % (Manual) 0 % (0-3) Basophils % (Manual) 1 % (0-2) Band Neutrophils 0 % (0-8) Platelet Estimate Decreased L Platelet Morphology Normal Sodium Level 143 MMOL/L (136-145) Potassium Level 3.5 MMOL/L (3.5-5.1) Chloride Level 101 MMOL/L (98-107) Carbon Dioxide Level 32 MMOL/L (21-32) Anion Gap 10 mmol/L (5-15) Blood Urea Nitrogen 36 mg/dL (7-18) H Creatinine 5.0 MG/DL (0.55-1.30) H Estimat Glomerular Filtration Rate mL/min (>60) Glucose Level 204 MG/DL (74-106) H Calcium Level 8.4 MG/DL (8.5-10.1) L Heparin-PF4 Antibody Screen Pending Objective HEAD AND NECK: No JVD.BIPAP on LUNGS: Clear. CARDIOVASCULAR: Regular S1 and S2 with no gallop or murmur. ABDOMEN: Soft. EXTREMITIES: No pitting edema. Dialysis access in the left arm. Dariel Corcoran MD Mar 18, 2019 10:54
--- NOTE | 2019-03-18 11:38 | NUR ---
COMMUTATOR ASSEMBLER PROGRESS NOTE Pt was in sleep when SW attempted to meet w/ pt. LESLY received a call from pt's daughter, Jasmin Dominguez [phone] and SW was able to gather information. Pt is , and has three adult children. PT resides w/ his , his daughter Jasmin Dominguez, and his adult son at [address] [place] [address]. Pt's daughter Jasmin is the SS provider and she has been providing all assistance. Jasmin Dominguez is the primary decision maker for pt. Per Jasmin, pt utilized a walker and wheelchair for ambulation. Pending whether pt will return home/needs placement/other referrals Signed: 03/18/19 at 1143 by LI GRACE <Co-Signature Required>
[2019-03-18 12:00] VITALS: BP 90/42
--- NOTE | 2019-03-18 12:40 | NUR ---
NURSE NOTES: Dr. Cornelius at bedside.
--- NOTE | 2019-03-18 12:46 | NUR ---
NURSE NOTES: Assisted wound care nurse with dressing change at bedside.
--- NOTE | 2019-03-18 13:33 | Infectious Diseases Prog Note ---
Assessment/Plan Assessment/Plan IMPRESSION: 1. Leukocytosis, resolved 2. Lactic acidosis. 3.Doubt sepsis 4. Apw-OM-unfrmanxv IA. 5. End-stage renal disease, on hemodialysis. 6. Diabetes mellitus, type 2. 7. Hypertension. 8. BPH. 9. Systolic CHF with ejection fraction of 40%. 10. Dysphagia 11. Hypoxemia 12. Pulmonary edema versus pneumonia RECOMMENDATIONS: Continue Cefepime DNR, DNI on palliative care Subjective ROS Limited/Unobtainable: Yes Respiratory: Reports: other - failed weaning from BIPAP Allergies: Coded Allergies: No Known Allergies (Unverified , 05/25/13) Objective Vital Signs Last 24 Hour Vital Signs Date Time Temp Pulse Resp B/P (MAP) Pulse Ox O2 Delivery O2 Flow Rate FiO2 03/18/19 12:03 70 03/18/19 12:00 97.0 72 31 90/42 (58) 91 03/18/19 12:00 35 03/18/19 12:00 Bi-pap 03/18/19 09:32 70 38 91 Facial 35 03/18/19 08:00 35 03/18/19 08:00 Bi-pap 03/18/19 08:00 96.5 74 34 105/65 (78) 90 03/18/19 07:53 76 03/18/19 07:04 70 34 99 Facial 35 70 32 99 Bi-Pap 03/18/19 06:59 98 Bi-Pap 35 03/18/19 05:30 50 03/18/19 04:00 Bi-pap 03/18/19 04:00 98.4 75 20 103/60 (74) 100 03/18/19 04:00 74 03/18/19 01:04 70 18 100 Simple Mask 6.0 40 77 18 99 03/18/19 00:00 98.3 70 19 116/57 (76) 100 03/18/19 00:00 Bi-pap 03/17/19 20:34 72 123/56 03/17/19 20:00 97.7 72 19 123/56 (78) 100 72 03/17/19 20:00 Bi-pap 03/17/19 20:00 72 03/17/19 18:52 70 18 100 Simple Mask 6.0 40 72 16 99 03/17/19 18:52 99 Simple Mask 6.0 38 03/17/19 16:00 96.4 75 19 116/50 (72) 98 03/17/19 16:00 Bi-pap 03/17/19 16:00 74 03/17/19 13:58 121/51 Height (Feet): 5 Height (Inches): 5.00 Weight (Pounds): 135 HEENT: mucous membranes moist Respiratory/Chest: lungs clear, other - on BIPAP, tachypneic Cardiovascular: normal rate Abdomen: soft, non tender Extremities: no edema Neurologic/Psychiatric: unresponsiveness Laboratory Tests Test 03/17/19 16:13 03/17/19 17:55 03/17/19 19:15 03/18/19 04:00 Arterial Blood pH 7.440 (7.350-7.450) Arterial Blood Partial Pressure CO2 51.0 mmHg (35.0-45.0) H Arterial Blood Partial Pressure O2 < 45.3 mmHg (75.0-100.0) Arterial Blood HCO3 33.9 mmol/L (22.0-26.0) H Arterial Blood Oxygen Saturation 50.9 % (95-100) *L Arterial Blood Base Excess 8.6 (-2-2) H Wyatt Test Positive White Blood Count 9.2 K/UL (4.8-10.8) 8.1 K/UL (4.8-10.8) Red Blood Count 2.69 M/UL (4.70-6.10) L 2.75 M/UL (4.70-6.10) L Hemoglobin 8.6 G/DL (14.2-18.0) L 8.6 G/DL (14.2-18.0) L Hematocrit 26.4 % (42.0-52.0) L 27.2 % (42.0-52.0) L Mean Corpuscular Volume 98 FL (80-99) 99 FL (80-99) Mean Corpuscular Hemoglobin 31.8 PG (27.0-31.0) H 31.3 PG (27.0-31.0) H Mean Corpuscular Hemoglobin Concent 32.3 G/DL (32.0-36.0) 31.7 G/DL (32.0-36.0) L Red Cell Distribution Width 15.0 % (11.6-14.8) H 15.2 % (11.6-14.8) H Platelet Count 75 K/UL (150-450) L 78 K/UL (150-450) L Mean Platelet Volume 9.3 FL (6.5-10.1) 8.0 FL (6.5-10.1) Neutrophils (%) (Auto) 87.5 % (45.0-75.0) H % (45.0-75.0) Lymphocytes (%) (Auto) 5.7 % (20.0-45.0) L % (20.0-45.0) Monocytes (%) (Auto) 5.8 % (1.0-10.0) % (1.0-10.0) Eosinophils (%) (Auto) 0.6 % (0.0-3.0) % (0.0-3.0) Basophils (%) (Auto) 0.4 % (0.0-2.0) % (0.0-2.0) Prostate Specific Antigen 9.09 ng/mL (0.13-4.0) H Prothrombin Time 11.4 SEC (9.30-11.50) Prothromb Time International Ratio 1.1 (0.9-1.1) Differential Total Cells Counted 100 Neutrophils % (Manual) 85 % (45-75) H Lymphocytes % (Manual) 6 % (20-45) L Monocytes % (Manual) 8 % (1-10) Eosinophils % (Manual) 0 % (0-3) Basophils % (Manual) 1 % (0-2) Band Neutrophils 0 % (0-8) Platelet Estimate Decreased L Platelet Morphology Normal Sodium Level 143 MMOL/L (136-145) Potassium Level 3.5 MMOL/L (3.5-5.1) Chloride Level 101 MMOL/L (98-107) Carbon Dioxide Level 32 MMOL/L (21-32) Anion Gap 10 mmol/L (5-15) Blood Urea Nitrogen 36 mg/dL (7-18) H Creatinine 5.0 MG/DL (0.55-1.30) H Estimat Glomerular Filtration Rate mL/min (>60) Glucose Level 204 MG/DL (74-106) H Calcium Level 8.4 MG/DL (8.5-10.1) L Heparin-PF4 Antibody Screen Pending Current Medications Medications (Trade) Dose Ordered Sig/Stephany Route PRN Reason Start Time Stop Time Status Last Admin Dose Admin Acetaminophen (Tylenol) 650 mg Q6H PRN ORAL Mild Pain/Temp > 100.5 03/09/19 07:01 04/07/19 07:00 03/10/19 03:10 Albuterol/ Ipratropium (Albuterol/ Ipratropium) 3 ml Q6HRT HHN 03/14/19 19:00 03/19/19 18:59 03/18/19 07:08 Aspirin (ASA) 81 mg DAILY NG 03/16/19 09:00 04/07/19 08:59 03/16/19 08:19 Atorvastatin Calcium (Lipitor) 20 mg BEDTIME NG 03/15/19 21:00 04/07/19 20:59 03/15/19 21:04 Carvedilol (Coreg) 3.125 mg EVERY 12 HOURS NG 03/15/19 21:00 04/09/19 20:59 03/16/19 08:19 Cefepime HCl 1 gm/ Dextrose 55 ml @ 110 mls/hr Q24H IVPB 03/14/19 21:00 03/21/19 20:59 03/17/19 21:04 Clonidine HCl (Catapres Tab) 0.1 mg Q8H PRN SL For High Blood Pressure 03/11/19 20:00 04/10/19 19:59 Dextrose 1,000 ml @ 30 mls/hr Q24H IV 03/09/19 14:07 04/08/19 14:06 03/17/19 13:58 Dextrose (Dextrose 50%) 25 ml Q30M PRN IV Hypoglycemia 03/09/19 07:00 04/07/19 06:59 Dextrose (Dextrose 50%) 50 ml Q30M PRN IV Hypoglycemia 03/09/19 07:00 04/07/19 06:59 Docusate Sodium (Colace) 100 mg THREE TIMES A DAY NG 03/15/19 18:00 04/14/19 17:59 03/16/19 17:26 Epoetin Best (Epoetin Best(ESRD on dialysis)) 3,000 unit SUN-SUN-SUN SUBQ 03/17/19 21:00 04/16/19 20:59 03/17/19 21:03 Epoetin Best (Epoetin Best(ESRD on dialysis)) 4,000 unit SUN-SUN-SUN SUBQ 03/17/19 21:00 04/16/19 20:59 03/17/19 21:03 Finasteride (Proscar) 5 mg DAILY ORAL 03/16/19 09:00 04/07/19 08:59 03/16/19 08:11 Fluticasone Propionate (Flonase) 2 spray DAILY NASAL 03/09/19 09:00 04/07/19 08:59 03/17/19 08:42 Guaifenesin/ Codeine Phosphate (Robitussin with codeine) 5 ml Q4H PRN ORAL For Cough 03/09/19 07:00 04/07/19 06:59 03/10/19 03:09 Hydralazine HCl (Apresoline) 25 mg Q4H PRN NG bp over 160 syst 03/15/19 19:03 04/07/19 07:02 Lisinopril (ZestriL) 10 mg DAILY NG 03/16/19 09:00 04/10/19 08:59 03/16/19 08:20 Lorazepam (Ativan) 1 mg Q6H PRN ORAL For Anxiety 03/12/19 12:28 03/19/19 12:27 Nitroglycerin (Ntg) 1 patch Q24H TDERMAL 03/09/19 14:30 04/08/19 14:29 03/17/19 13:58 Ondansetron HCl (Zofran) 4 mg Q4H PRN IVP Nausea & Vomiting 03/09/19 07:03 04/08/19 07:02 03/10/19 03:09 Pantoprazole (Protonix) 40 mg BID IVP 03/15/19 18:00 04/14/19 17:59 03/18/19 08:23 Risperidone (RisperDAL) 1 mg BEDTIME NG 03/15/19 21:00 04/11/19 20:59 03/15/19 21:04 Sevelamer Carbonate (Renvela) 1,600 mg THREE TIMES A DAY NG 03/15/19 18:00 04/14/19 17:59 03/16/19 17:26 Tamsulosin HCl (Flomax) 0.4 mg BEDTIME ORAL 03/09/19 21:00 04/07/19 20:59 03/15/19 21:04 Vitamin D (Vitamin D) 1,000 intlu DAILY ORAL 03/16/19 09:00 04/15/19 08:59 03/16/19 08:10 Boyd Tee MD Mar 18, 2019 13:33
[2019-03-18] MEDS: Nitroglycerin Patch 0.4mg TDERMAL SCH (14:45)
[2019-03-18] MEDS: Dextrose 10% 1,000 ML IV SCH (14:45)
--- NOTE | 2019-03-18 15:07 | Nephrology Progress Note ---
Assessment/Plan Problem List: (1) ESRD (end stage renal disease) on dialysis (2) Cardiomyopathy (3) NSTEMI (non-ST elevated myocardial infarction) Assessment: Troponin lowering (4) Acute respiratory failure with hypoxia and hypercapnia Assessment ESRD- HTN Anemia DM CAD- Cardiomyopathy s/p SEPSIS [place] Plan recent 2D echo 40% EjFx Pulm Toilet and support HD next 03/19 Keep BP in check - Hold bp meds for now due to low BP Albumin bolus ASA Nitrate per consultants per orders ? need for PEG as NGt always pulled out ? discussed with Dr Cornelius and Estelita Subjective ROS Limited/Unobtainable: No Constitutional: Reports: malaise, weakness Objective Objective Last 24 Hour Vital Signs Date Time Temp Pulse Resp B/P (MAP) Pulse Ox O2 Delivery O2 Flow Rate FiO2 03/18/19 14:45 90/42 03/18/19 13:52 68 31 97 Facial 40 69 28 99 Bi-Pap 40 03/18/19 12:03 70 03/18/19 12:00 97.0 72 31 90/42 (58) 91 03/18/19 12:00 35 03/18/19 12:00 Bi-pap 03/18/19 09:32 70 38 91 Facial 35 03/18/19 08:00 35 03/18/19 08:00 Bi-pap 03/18/19 08:00 96.5 74 34 105/65 (78) 90 03/18/19 07:53 76 03/18/19 07:04 70 34 99 Facial 35 70 32 99 Bi-Pap 03/18/19 06:59 98 Bi-Pap 35 03/18/19 05:30 50 03/18/19 04:00 Bi-pap 03/18/19 04:00 98.4 75 20 103/60 (74) 100 03/18/19 04:00 74 03/18/19 01:04 70 18 100 Simple Mask 6.0 40 77 18 99 03/18/19 00:00 98.3 70 19 116/57 (76) 100 03/18/19 00:00 Bi-pap 03/17/19 20:34 72 123/56 03/17/19 20:00 97.7 72 19 123/56 (78) 100 72 03/17/19 20:00 Bi-pap 1/20/20 20:00 72 03/17/19 18:52 70 18 100 Simple Mask 6.0 40 72 16 99 03/17/19 18:52 99 Simple Mask 6.0 38 03/17/19 16:00 96.4 75 19 116/50 (72) 98 03/17/19 16:00 Bi-pap 03/17/19 16:00 74 Intake and Output 03/17/19 03/18/19 19:00 07:00 Intake Total 3150 ml 415 ml Balance 3150 ml 415 ml IV Total 150 ml 415 ml Hemodialysis 3000 ml # Bowel Movements 3 3 Laboratory Tests 03/17/19 16:13: Arterial Blood pH 7.440, Arterial Blood Partial Pressure CO2 51.0H, Arterial Blood Partial Pressure O2 < 45.3*L, Arterial Blood HCO3 33.9H, Arterial Blood Oxygen Saturation 50.9*L, Arterial Blood Base Excess 8.6H, Wyatt Test Positive 03/17/19 17:55: White Blood Count 9.2, Red Blood Count 2.69L, Hemoglobin 8.6L, Hematocrit 26.4L , Mean Corpuscular Volume 98, Mean Corpuscular Hemoglobin 31.8H, Mean Corpuscular Hemoglobin Concent 32.3, Red Cell Distribution Width 15.0H, Platelet Count 75L, Mean Platelet Volume 9.3, Neutrophils (%) (Auto) 87.5H, Lymphocytes (%) (Auto) 5.7L, Monocytes (%) (Auto) 5.8, Eosinophils (%) (Auto) 0.6, Basophils (%) (Auto) 0.4, Prostate Specific Antigen 9.09H 03/17/19 19:15: Prothrombin Time 11.4, Prothromb Time International Ratio 1.1 03/18/19 04:00: White Blood Count 8.1, Red Blood Count 2.75L, Hemoglobin 8.6L, Hematocrit 27.2L , Mean Corpuscular Volume 99, Mean Corpuscular Hemoglobin 31.3H, Mean Corpuscular Hemoglobin Concent 31.7L, Red Cell Distribution Width 15.2H, Platelet Count 78L, Mean Platelet Volume 8.0, Neutrophils (%) (Auto) , Lymphocytes (%) (Auto) , Monocytes (%) (Auto) , Eosinophils (%) (Auto) , Basophils (%) (Auto) , Differential Total Cells Counted 100, Neutrophils % ( Manual) 85H, Lymphocytes % (Manual) 6L, Monocytes % (Manual) 8, Eosinophils % ( Manual) 0, Basophils % (Manual) 1, Band Neutrophils 0, Platelet Estimate DecreasedL, Platelet Morphology Normal, Sodium Level 143, Potassium Level 3.5, Chloride Level 101, Carbon Dioxide Level 32, Anion Gap 10, Blood Urea Nitrogen 36H, Creatinine 5.0H, Estimat Glomerular Filtration Rate , Glucose Level 204H, Calcium Level 8.4L, Heparin-PF4 Antibody Screen [Pending] Height (Feet): 5 Height (Inches): 5.00 Weight (Pounds): 135 General Appearance: no apparent distress EENT: other - BIPAP Cardiovascular: normal rate Respiratory/Chest: decreased breath sounds Abdomen: soft Objective no change Mikey Brandt MD Mar 18, 2019 15:07
[2019-03-18 16:00] VITALS: BP_SYST 108; BP_DIAS 33; BP_DIAS 58
--- NOTE | 2019-03-18 19:19 | NUR ---
HAND-OFF: Report given to Mouna Helm RN. Patient remains on bipap. Kept NPO.
--- NOTE | 2019-03-18 19:35 | NUR ---
NURSE NOTES: Received report from Eloise Solomon RN. Pt in stable condition, SR, VS WNL Limit. Will continue to monitor closely.
--- NOTE | 2019-03-18 19:50 | General Progress Note ---
Assessment/Plan Assessment/Plan: respiratory failure aspiration risk NSTEMI renal failure diabeters persistent hypoglycemia ho pneumonia ho elevated lactic acid htn hld thrombocytopenia bipap prn aggressive pulmonaryhygiene, followed by Dr Adryan HENRY eval noted , pos aspirate eliquis held heme eval apprecaiated aspiration precutions\pulmonary hygiene echo noted, decreaed EF endo eval appreciated dialysis dependent abx per ID dw Dr Burk, on eliquis due to previous stroke paf hold elliquis due to low platelet dvt and ulcer prophylaxis dw family they dont want aggressive measure want him to be comfortable DNR DNI, they dont want tube feeds no intubation considerig palliative measures Subjective Allergies: Coded Allergies: No Known Allergies (Unverified , 05/25/13) Subjective seen in am patient removed ng tube currently on bipap family have decided no ng or gtube placment and want to pursue palliative measures Objective Last 24 Hour Vital Signs Date Time Temp Pulse Resp B/P (MAP) Pulse Ox O2 Delivery O2 Flow Rate FiO2 03/18/19 18:57 71 20 99 Facial 40 72 22 100 Bi-Pap 40 03/18/19 18:56 99 Bi-Pap 40 03/18/19 16:39 72 29 96 Full Face 40 03/18/19 16:00 97.0 71 31 108/33 (58) 91 03/18/19 16:00 Bi-pap 03/18/19 16:00 35 03/18/19 15:33 71 30 99 Facial 40 03/18/19 15:25 70 03/18/19 14:45 90/42 03/18/19 13:52 68 31 97 Facial 40 69 28 99 Bi-Pap 40 03/18/19 12:03 70 03/18/19 12:00 97.0 72 31 90/42 (58) 91 03/18/19 12:00 35 03/18/19 12:00 Bi-pap 03/18/19 09:32 70 38 91 Facial 35 03/18/19 08:00 35 03/18/19 08:00 Bi-pap 03/18/19 08:00 96.5 74 34 105/65 (78) 90 03/18/19 07:53 76 03/18/19 07:04 70 34 99 Facial 35 70 32 99 Bi-Pap 03/18/19 06:59 98 Bi-Pap 35 03/18/19 05:30 50 03/18/19 04:00 Bi-pap 03/18/19 04:00 98.4 75 20 103/60 (74) 100 03/18/19 04:00 74 03/18/19 01:04 70 18 100 Simple Mask 6.0 40 77 18 99 03/18/19 00:00 98.3 70 19 116/57 (76) 100 03/18/19 00:00 Bi-pap 03/17/19 20:34 72 123/56 03/17/19 20:00 97.7 72 19 123/56 (78) 100 72 03/17/19 20:00 Bi-pap 03/17/19 20:00 72 Intake and Output 03/17/19 03/18/19 19:00 07:00 Intake Total 3150 ml 415 ml Balance 3150 ml 415 ml IV Total 150 ml 415 ml Hemodialysis 3000 ml # Bowel Movements 3 3 Laboratory Tests 03/18/19 04:00: White Blood Count 8.1, Red Blood Count 2.75L, Hemoglobin 8.6L, Hematocrit 27.2L , Mean Corpuscular Volume 99, Mean Corpuscular Hemoglobin 31.3H, Mean Corpuscular Hemoglobin Concent 31.7L, Red Cell Distribution Width 15.2H, Platelet Count 78L, Mean Platelet Volume 8.0, Neutrophils (%) (Auto) , Lymphocytes (%) (Auto) , Monocytes (%) (Auto) , Eosinophils (%) (Auto) , Basophils (%) (Auto) , Differential Total Cells Counted 100, Neutrophils % ( Manual) 85H, Lymphocytes % (Manual) 6L, Monocytes % (Manual) 8, Eosinophils % ( Manual) 0, Basophils % (Manual) 1, Band Neutrophils 0, Platelet Estimate DecreasedL, Platelet Morphology Normal, Sodium Level 143, Potassium Level 3.5, Chloride Level 101, Carbon Dioxide Level 32, Anion Gap 10, Blood Urea Nitrogen 36H, Creatinine 5.0H, Estimat Glomerular Filtration Rate , Glucose Level 204H, Calcium Level 8.4L, Heparin-PF4 Antibody Screen [Pending] Height (Feet): 5 Height (Inches): 5.00 Weight (Pounds): 135 General Appearance: WD/WN, no apparent distress Neck: supple Cardiovascular: normal rate Respiratory/Chest: rhonchi - bilaterally Abdomen: soft Viktor García MD Mar 18, 2019 19:50
--- NOTE | 2019-03-18 19:54 | General Progress Note ---
Assessment/Plan Assessment/Plan: Assessment - Failed swallow, aspiration risk - resp failure - still too high a risk for EGD - NSTEMI - thrombocytopenia - PNA - CAD - ESRD, HD - OBS - Poor prognosis Recommendations - Pulmonary f/u - follow resp parameters closely - no plans for PEG - Family discussion Subjective Allergies: Coded Allergies: No Known Allergies (Unverified , 05/25/13) Subjective Above noted BIPAP being used family declining PEG, by report ? comfort care direction Objective Last 24 Hour Vital Signs Date Time Temp Pulse Resp B/P (MAP) Pulse Ox O2 Delivery O2 Flow Rate FiO2 03/18/19 18:57 71 20 99 Facial 40 72 22 100 Bi-Pap 40 03/18/19 18:56 99 Bi-Pap 40 03/18/19 16:39 72 29 96 Full Face 40 03/18/19 16:00 97.0 71 31 108/33 (58) 91 03/18/19 16:00 Bi-pap 03/18/19 16:00 35 03/18/19 15:33 71 30 99 Facial 40 03/18/19 15:25 70 03/18/19 14:45 90/42 03/18/19 13:52 68 31 97 Facial 40 69 28 99 Bi-Pap 40 03/18/19 12:03 70 03/18/19 12:00 97.0 72 31 90/42 (58) 91 03/18/19 12:00 35 03/18/19 12:00 Bi-pap 03/18/19 09:32 70 38 91 Facial 35 03/18/19 08:00 35 03/18/19 08:00 Bi-pap 03/18/19 08:00 96.5 74 34 105/65 (78) 90 03/18/19 07:53 76 03/18/19 07:04 70 34 99 Facial 35 70 32 99 Bi-Pap 03/18/19 06:59 98 Bi-Pap 35 03/18/19 05:30 50 03/18/19 04:00 Bi-pap 03/18/19 04:00 98.4 75 20 103/60 (74) 100 03/18/19 04:00 74 03/18/19 01:04 70 18 100 Simple Mask 6.0 40 77 18 99 03/18/19 00:00 98.3 70 19 116/57 (76) 100 03/18/19 00:00 Bi-pap 03/17/19 20:34 72 123/56 03/17/19 20:00 97.7 72 19 123/56 (78) 100 72 03/17/19 20:00 Bi-pap 03/17/19 20:00 72 Intake and Output 03/17/19 03/18/19 19:00 07:00 Intake Total 3150 ml 415 ml Balance 3150 ml 415 ml IV Total 150 ml 415 ml Hemodialysis 3000 ml # Bowel Movements 3 3 Laboratory Tests 03/18/19 04:00: White Blood Count 8.1, Red Blood Count 2.75L, Hemoglobin 8.6L, Hematocrit 27.2L , Mean Corpuscular Volume 99, Mean Corpuscular Hemoglobin 31.3H, Mean Corpuscular Hemoglobin Concent 31.7L, Red Cell Distribution Width 15.2H, Platelet Count 78L, Mean Platelet Volume 8.0, Neutrophils (%) (Auto) , Lymphocytes (%) (Auto) , Monocytes (%) (Auto) , Eosinophils (%) (Auto) , Basophils (%) (Auto) , Differential Total Cells Counted 100, Neutrophils % ( Manual) 85H, Lymphocytes % (Manual) 6L, Monocytes % (Manual) 8, Eosinophils % ( Manual) 0, Basophils % (Manual) 1, Band Neutrophils 0, Platelet Estimate DecreasedL, Platelet Morphology Normal, Sodium Level 143, Potassium Level 3.5, Chloride Level 101, Carbon Dioxide Level 32, Anion Gap 10, Blood Urea Nitrogen 36H, Creatinine 5.0H, Estimat Glomerular Filtration Rate , Glucose Level 204H, Calcium Level 8.4L, Heparin-PF4 Antibody Screen [Pending] Height (Feet): 5 Height (Inches): 5.00 Weight (Pounds): 135 Objective Elderly man NCAT supple Coarse ronchi RR Abd soft ND Neuro confused MyeshaorrMann smith MD Mar 18, 2019 19:54
[2019-03-18 20:00] VITALS: BP 111/44
[2019-03-18] MEDS: Atorvastatin 20mg tab NG SCH (20:25)
[2019-03-18] MEDS: Tamsulosin 0.4mg cap ORAL SCH (20:26)
[2019-03-18] MEDS: Cefepime HCl 1 GM in D5W 55 ML IVPB SCH (22:53)
[2019-03-19] VITALS: BP 131/60
[2019-03-19] MEDS: Albuterol/Ipratropium 3ml neb HHN SCH ×3 (01:17→13:16)
--- NOTE | 2019-03-19 02:01 | Progress Note ---
DATE: 03/18/2019 SUBJECTIVE: The patient was on BiPAP. The patient is having episodes of agitation. He is still in bilateral soft restraints. Confused, disoriented. No suicidal or homicidal ideation. Cognition is impaired. Insight impaired. ASSESSMENT: Dementia with behavioral disturbance. PLAN: 1. Risperidone 1 mg nightly. 2. Ativan p.r.n. 3. restraints. Zi Carrera M.D. DR: KASANDRA JOB#: [id number] CC: [facility]
[2019-03-19 03:56] VITALS: BP 109/80
--- NOTE | 2019-03-19 04:45 | Progress Note ---
DATE: 03/18/2019 SUBJECTIVE: The patient is asleep . He is out of the restrain. Calmer, more manageable. MENTAL STATUS EXAMINATION: The patient is more alert. Mood is neutral. Affect is flat. Thought process, there is a paucity of thought content. Thought content, no suicidal or homicidal ideation. Cognition is impaired. Insight and judgment impaired. ASSESSMENT: Dementia. PLAN: 1. We will continue current medications. 2. Provide the patient with reality orientation Zi Carrera M.D. DR: GALINA JOB#: [id number] CC: [facility]
[2019-03-19 04:48] LABS: HEMOGLOBIN 8.1 G/DL (14.2-18.0); MEAN CORPUSCULAR VOLUME 98 FL (80-99); PLATELET COUNT 86 K/UL (150-450); RED BLOOD COUNT 2.56 M/UL (4.70-6.10); RED CELL DISTRIBUTION WIDTH 14.7 % (11.6-14.8); WHITE BLOOD COUNT 10.3 K/UL (4.8-10.8)
[2019-03-19 05:06] LABS: ALANINE AMINOTRANSFERASE 18 U/L (12-78); ALBUMIN 1.9 G/DL (3.4-5.0); ALBUMIN/GLOBULIN RATIO 0.4 (1.0-2.7); ALKALINE PHOSPHATASE 134 U/L (46-116); ANION GAP 7 mmol/L (5-15); ASPARTATE AMINO TRANSFERASE 28 U/L (15-37); BILIRUBIN,TOTAL 0.8 MG/DL (0.2-1.0); BLOOD UREA NITROGEN 52 mg/dL (7-18); CALCIUM 8.2 MG/DL (8.5-10.1); CARBON DIOXIDE 33 MMOL/L (21-32); CHLORIDE 103 MMOL/L (98-107); CREATININE 6.5 MG/DL (0.55-1.30); PHOSPHORUS 2.7 MG/DL (2.5-4.9); SODIUM 143 MMOL/L (136-145)
--- NOTE | 2019-03-19 07:00 | Hematology/Onc Progress Note ---
Assessment/Plan Assessment/Plan Assessment and Recs: # Thrombocytopenia -- i have seen him in the past and reviewed platelet trend for the past 1-2 years and this is at an all time low, likely related to infection/reactive process --> plt trend 115-->87-->7-->58-->55-->75-->86 --> smear has been reviewed --> meds are noted --> dw pcp, will HOLD OFF ELIQUIS FOR NOW given also low H/H --> IF THE PLATELET COUNT STABilizes, consider to restart eliquis # Anemia due to chronic disease -- hgb trending at 9-11 --> consider anemia panel, reviewed from prior admission --> does not require iron at this time --> hold off on iron --> hgb trend 10.7-->10-->8.1-->8.6-->8.1 --> EPOGEN HAS BEEN STARTED # Secondary hypercoagulable disorder, no afib, but has pvd and stroke ppx --> HOLD ELIQUIS --> continue if plt >50k and h/h stable # ESRD (end stage renal disease) --> as per Neprho --> TTF --> reviewed Dr. Brandt recs # Hypotension --> fluids as needed # RLL on cxr --> on broad spectrum abx --> as per id # Diabetes --> a1c goal <8, iss, accuchecks # NSTEMI with elev trop may be due to esrd --> as per cards management, asa bb, lipitor # Dysphagia. Family refused PEG --> hold off peg # Respiratory failure on BIPAP. DNR now # Dvt ppx scds Appreciate consultation and enrique RN Subjective Constitutional: Denies: no symptoms, chills, fever, malaise, weakness, other HEENT: Denies: no symptoms, eye pain, blurred vision, tearing, double vision, ear pain, ear discharge, nose pain, nose congestion, throat pain, throat swelling, mouth pain, mouth swelling, other Respiratory: Denies: no symptoms, cough, shortness of breath, SOB with excertion, SOB at rest, sputum, wheezing, other Gastrointestinal/Abdominal: Denies: no symptoms, abdomen distended, abdominal pain, black stools, tarry stools, blood in stool, constipated, diarrhea, difficulty swallowing, nausea, poor appetite, poor fluid intake, rectal bleeding , vomiting, other Genitourinary: Denies: no symptoms, burning, discharge, frequency, flank pain, hematuria, incontinence, pain, urgency, other Neurologic/Psychiatric: Denies: no symptoms, anxiety, depressed, emotional problems, headache, numbness, paresthesia, pre-existing deficit, seizure, tingling, tremors, weakness, other Endocrine: Denies: no symptoms, excessive sweating, flushing, intolerance to cold, intolerance to heat, increased hunger, increased thirst, increased urine, unexplained weight gain, unexplained weight loss, other Allergies: Coded Allergies: No Known Allergies (Unverified , 05/25/13) Subjective 03/18/19: remains confused, nonverbal, labs reviewed, meds noted 03/19: no plan for peg, code status unchanged, poor prognosis, labs noted, seen by psych Objective Objective Current Medications Medications (Trade) Dose Ordered Sig/Stephany Route PRN Reason Start Time Stop Time Status Last Admin Dose Admin Acetaminophen (Tylenol) 650 mg Q6H PRN ORAL Mild Pain/Temp > 100.5 03/09/19 07:01 04/07/19 07:00 03/10/19 03:10 Albuterol/ Ipratropium (Albuterol/ Ipratropium) 3 ml Q6HRT HHN 03/14/19 19:00 03/19/19 18:59 03/19/19 01:17 Aspirin (ASA) 81 mg DAILY NG 03/16/19 09:00 04/07/19 08:59 03/16/19 08:19 Atorvastatin Calcium (Lipitor) 20 mg BEDTIME NG 03/15/19 21:00 04/07/19 20:59 03/15/19 21:04 Carvedilol (Coreg) 3.125 mg EVERY 12 HOURS NG 03/15/19 21:00 04/09/19 20:59 03/16/19 08:19 Cefepime HCl 1 gm/ Dextrose 55 ml @ 110 mls/hr Q24H IVPB 03/14/19 21:00 03/21/19 20:59 03/18/19 22:53 Clonidine HCl (Catapres Tab) 0.1 mg Q8H PRN SL For High Blood Pressure 03/11/19 20:00 04/10/19 19:59 Dextrose 1,000 ml @ 30 mls/hr Q24H IV 03/09/19 14:07 04/08/19 14:06 03/18/19 14:45 Dextrose (Dextrose 50%) 25 ml Q30M PRN IV Hypoglycemia 03/09/19 07:00 04/07/19 06:59 Dextrose (Dextrose 50%) 50 ml Q30M PRN IV Hypoglycemia 03/09/19 07:00 04/07/19 06:59 Docusate Sodium (Colace) 100 mg THREE TIMES A DAY NG 03/15/19 18:00 04/14/19 17:59 03/16/19 17:26 Epoetin Best (Epoetin Best(ESRD on dialysis)) 3,000 unit SUN- SUBQ 03/17/19 21:00 04/16/19 20:59 03/17/19 21:03 Epoetin Best (Epoetin Best(ESRD on dialysis)) 4,000 unit SUN- SUBQ 03/17/19 21:00 04/16/19 20:59 03/17/19 21:03 Finasteride (Proscar) 5 mg DAILY ORAL 03/16/19 09:00 04/07/19 08:59 03/16/19 08:11 Fluticasone Propionate (Flonase) 2 spray DAILY NASAL 03/09/19 09:00 04/07/19 08:59 03/17/19 08:42 Guaifenesin/ Codeine Phosphate (Robitussin with codeine) 5 ml Q4H PRN ORAL For Cough 03/09/19 07:00 04/07/19 06:59 03/10/19 03:09 Hydralazine HCl (Apresoline) 25 mg Q4H PRN NG bp over 160 syst 03/15/19 19:03 04/07/19 07:02 Lorazepam (Ativan) 1 mg Q6H PRN ORAL For Anxiety 03/12/19 12:28 03/19/19 12:27 Nitroglycerin (Ntg) 1 patch Q24H TDERMAL 03/09/19 14:30 04/08/19 14:29 03/18/19 14:45 Ondansetron HCl (Zofran) 4 mg Q4H PRN IVP Nausea & Vomiting 03/09/19 07:03 04/08/19 07:02 03/10/19 03:09 Pantoprazole (Protonix) 40 mg EVERY 12 HOURS IVP 03/18/19 21:00 04/14/19 17:59 03/18/19 22:55 Risperidone (RisperDAL) 1 mg BEDTIME NG 03/15/19 21:00 04/11/19 20:59 03/15/19 21:04 Sevelamer Carbonate (Renvela) 1,600 mg THREE TIMES A DAY NG 03/15/19 18:00 04/14/19 17:59 03/16/19 17:26 Tamsulosin HCl (Flomax) 0.4 mg BEDTIME ORAL 03/09/19 21:00 04/07/19 20:59 03/15/19 21:04 Vitamin D (Vitamin D) 1,000 intlu DAILY ORAL 03/16/19 09:00 04/15/19 08:59 03/16/19 08:10 Last 24 Hour Vital Signs Date Time Temp Pulse Resp B/P (MAP) Pulse Ox O2 Delivery O2 Flow Rate FiO2 03/19/19 05:42 65 30 100 Facial 40 03/19/19 04:00 66 03/19/19 03:56 98.6 66 27 109/80 (90) 91 03/19/19 03:52 35 03/19/19 03:52 Bi-pap 03/19/19 03:11 65 26 100 Facial 40 03/19/19 01:18 67 25 98 Facial 40 70 26 100 Bi-Pap 40 03/19/19 00:00 67 03/19/19 00:00 Bi-pap 03/19/19 00:00 97.0 70 27 131/60 (83) 91 03/18/19 23:05 67 25 100 Facial 40 03/18/19 21:26 72 26 98 Facial 40 03/18/19 20:00 Bi-pap 03/18/19 20:00 70 03/18/19 20:00 98.0 71 30 111/44 (66) 99 03/18/19 20:00 35 03/18/19 18:57 71 20 99 Facial 40 72 22 100 Bi-Pap 40 03/18/19 18:56 99 Bi-Pap 40 03/18/19 16:39 72 29 96 Full Face 40 03/18/19 16:00 97.0 71 31 108/33 (58) 91 03/18/19 16:00 Bi-pap 03/18/19 16:00 35 03/18/19 15:33 71 30 99 Facial 40 03/18/19 15:25 70 03/18/19 14:45 90/42 03/18/19 13:52 68 31 97 Facial 40 69 28 99 Bi-Pap 40 03/18/19 12:03 70 03/18/19 12:00 97.0 72 31 90/42 (58) 91 03/18/19 12:00 35 03/18/19 12:00 Bi-pap 03/18/19 09:32 70 38 91 Facial 35 03/18/19 08:00 35 03/18/19 08:00 Bi-pap 03/18/19 08:00 96.5 74 34 105/65 (78) 90 03/18/19 07:53 76 03/18/19 07:04 70 34 99 Facial 35 70 32 99 Bi-Pap 03/18/19 06:59 98 Bi-Pap 35 03/18/19 05:30 50 03/18/19 04:00 Bi-pap 03/18/19 04:00 98.4 75 20 103/60 (74) 100 03/18/19 04:00 74 03/18/19 01:04 70 18 100 Simple Mask 6.0 40 77 18 99 03/18/19 00:00 98.3 70 19 116/57 (76) 100 03/18/19 00:00 Bi-pap 03/17/19 20:34 72 123/56 03/17/19 20:00 97.7 72 19 123/56 (78) 100 72 03/17/19 20:00 Bi-pap 03/17/19 20:00 72 03/17/19 18:52 70 18 100 Simple Mask 6.0 40 72 16 99 03/17/19 18:52 99 Simple Mask 6.0 38 03/17/19 16:00 96.4 75 19 116/50 (72) 98 03/17/19 16:00 Bi-pap 03/17/19 16:00 74 03/17/19 13:58 121/51 03/17/19 13:29 68 20 100 Simple Mask 6.0 40 70 18 100 03/17/19 12:00 Bi-pap 03/17/19 12:00 98.2 62 18 121/51 (74) 98 03/17/19 12:00 62 03/17/19 08:00 98.1 66 18 95/52 (66) 100 03/17/19 08:00 Bi-pap 03/17/19 08:00 65 03/17/19 07:34 100 Bi-Pap 35 03/17/19 07:29 60 28 100 Facial 35 60 26 100 Bi-Pap Intake and Output 03/18/19 03/19/19 19:00 07:00 Intake Total 337.5 ml 350 ml Balance 337.5 ml 350 ml IV Total 337.5 ml 350 ml # Voids 1 Labs Test 03/17/19 03:25 03/17/19 16:13 03/17/19 17:55 03/17/19 19:15 White Blood Count 8.3 K/UL (4.8-10.8) 9.2 K/UL (4.8-10.8) Red Blood Count 2.57 M/UL (4.70-6.10) 2.69 M/UL (4.70-6.10) Hemoglobin 8.1 G/DL (14.2-18.0) 8.6 G/DL (14.2-18.0) Hematocrit 25.2 % (42.0-52.0) 26.4 % (42.0-52.0) Mean Corpuscular Volume 98 FL (80-99) 98 FL (80-99) Mean Corpuscular Hemoglobin 31.4 PG (27.0-31.0) 31.8 PG (27.0-31.0) Mean Corpuscular Hemoglobin Concent 32.1 G/DL (32.0-36.0) 32.3 G/DL (32.0-36.0) Red Cell Distribution Width 14.9 % (11.6-14.8) 15.0 % (11.6-14.8) Platelet Count 55 K/UL (150-450) 75 K/UL (150-450) Mean Platelet Volume 7.6 FL (6.5-10.1) 9.3 FL (6.5-10.1) Neutrophils (%) (Auto) % (45.0-75.0) 87.5 % (45.0-75.0) Lymphocytes (%) (Auto) % (20.0-45.0) 5.7 % (20.0-45.0) Monocytes (%) (Auto) % (1.0-10.0) 5.8 % (1.0-10.0) Eosinophils (%) (Auto) % (0.0-3.0) 0.6 % (0.0-3.0) Basophils (%) (Auto) % (0.0-2.0) 0.4 % (0.0-2.0) Differential Total Cells Counted 100 Neutrophils % (Manual) 86 % (45-75) Lymphocytes % (Manual) 9 % (20-45) Monocytes % (Manual) 5 % (1-10) Eosinophils % (Manual) 0 % (0-3) Basophils % (Manual) 0 % (0-2) Band Neutrophils 0 % (0-8) Platelet Estimate Decreased Platelet Morphology Normal Hypochromasia 1+ Anisocytosis 1+ Sodium Level 142 MMOL/L (136-145) Potassium Level 3.7 MMOL/L (3.5-5.1) Chloride Level 101 MMOL/L (98-107) Carbon Dioxide Level 30 MMOL/L (21-32) Anion Gap 11 mmol/L (5-15) Blood Urea Nitrogen 67 mg/dL (7-18) Creatinine 7.0 MG/DL (0.55-1.30) Estimat Glomerular Filtration Rate mL/min (>60) Glucose Level 123 MG/DL (74-106) Calcium Level 8.3 MG/DL (8.5-10.1) Total Bilirubin 0.8 MG/DL (0.2-1.0) Aspartate Amino Transf (AST/SGOT) 54 U/L (15-37) Alanine Aminotransferase (ALT/SGPT) 30 U/L (12-78) Alkaline Phosphatase 172 U/L (46-116) Total Protein 6.2 G/DL (6.4-8.2) Albumin 2.2 G/DL (3.4-5.0) Globulin 4.0 g/dL Albumin/Globulin Ratio 0.6 (1.0-2.7) Arterial Blood pH 7.440 (7.350-7.450) Arterial Blood Partial Pressure CO2 51.0 mmHg (35.0-45.0) Arterial Blood Partial Pressure O2 < 45.3 mmHg (75.0-100.0) Arterial Blood HCO3 33.9 mmol/L (22.0-26.0) Arterial Blood Oxygen Saturation 50.9 % (95-100) Arterial Blood Base Excess 8.6 (-2-2) Wyatt Test Positive Prostate Specific Antigen 9.09 ng/mL (0.13-4.0) Prothrombin Time 11.4 SEC (9.30-11.50) Prothromb Time International Ratio 1.1 (0.9-1.1) Test 03/18/19 04:00 03/19/19 03:45 White Blood Count 8.1 K/UL (4.8-10.8) 10.3 K/UL (4.8-10.8) Red Blood Count 2.75 M/UL (4.70-6.10) 2.56 M/UL (4.70-6.10) Hemoglobin 8.6 G/DL (14.2-18.0) 8.1 G/DL (14.2-18.0) Hematocrit 27.2 % (42.0-52.0) 25.0 % (42.0-52.0) Mean Corpuscular Volume 99 FL (80-99) 98 FL (80-99) Mean Corpuscular Hemoglobin 31.3 PG (27.0-31.0) 31.6 PG (27.0-31.0) Mean Corpuscular Hemoglobin Concent 31.7 G/DL (32.0-36.0) 32.4 G/DL (32.0-36.0) Red Cell Distribution Width 15.2 % (11.6-14.8) 14.7 % (11.6-14.8) Platelet Count 78 K/UL (150-450) 86 K/UL (150-450) Mean Platelet Volume 8.0 FL (6.5-10.1) 7.6 FL (6.5-10.1) Neutrophils (%) (Auto) % (45.0-75.0) % (45.0-75.0) Lymphocytes (%) (Auto) % (20.0-45.0) % (20.0-45.0) Monocytes (%) (Auto) % (1.0-10.0) % (1.0-10.0) Eosinophils (%) (Auto) % (0.0-3.0) % (0.0-3.0) Basophils (%) (Auto) % (0.0-2.0) % (0.0-2.0) Differential Total Cells Counted 100 Neutrophils % (Manual) 85 % (45-75) Lymphocytes % (Manual) 6 % (20-45) Monocytes % (Manual) 8 % (1-10) Eosinophils % (Manual) 0 % (0-3) Basophils % (Manual) 1 % (0-2) Band Neutrophils 0 % (0-8) Platelet Estimate Decreased Platelet Morphology Normal Sodium Level 143 MMOL/L (136-145) 143 MMOL/L (136-145) Potassium Level 3.5 MMOL/L (3.5-5.1) 4.0 MMOL/L (3.5-5.1) Chloride Level 101 MMOL/L (98-107) 103 MMOL/L (98-107) Carbon Dioxide Level 32 MMOL/L (21-32) 33 MMOL/L (21-32) Anion Gap 10 mmol/L (5-15) 7 mmol/L (5-15) Blood Urea Nitrogen 36 mg/dL (7-18) 52 mg/dL (7-18) Creatinine 5.0 MG/DL (0.55-1.30) 6.5 MG/DL (0.55-1.30) Estimat Glomerular Filtration Rate mL/min (>60) mL/min (>60) Glucose Level 204 MG/DL (74-106) 141 MG/DL (74-106) Calcium Level 8.4 MG/DL (8.5-10.1) 8.2 MG/DL (8.5-10.1) Uric Acid 7.0 MG/DL (2.6-7.2) Phosphorus Level 2.7 MG/DL (2.5-4.9) Magnesium Level 2.3 MG/DL (1.8-2.4) Total Bilirubin 0.8 MG/DL (0.2-1.0) Aspartate Amino Transf (AST/SGOT) 28 U/L (15-37) Alanine Aminotransferase (ALT/SGPT) 18 U/L (12-78) Alkaline Phosphatase 134 U/L (46-116) Troponin I 0.308 ng/mL (0.000-0.056) C-Reactive Protein, Quantitative 28.4 mg/dL (0.00-0.90) Total Protein 6.5 G/DL (6.4-8.2) Albumin 1.9 G/DL (3.4-5.0) Globulin 4.6 g/dL Albumin/Globulin Ratio 0.4 (1.0-2.7) Height (Feet): 5 Height (Inches): 5.00 Weight (Pounds): 135 Objective Vitals: reviewed, normal Gen: no apparent distress, alert, GCS 15, non-toxic HEENT: normocephalic, atraumatic Resp: chest non-tender, lungs clear, normal Bss CV: rrr, no edema, no gallop, no JVD, no murmur Gastrointestinal: normal bowel sounds, non tender, soft, non-distended Msk: normal range of motion, non-tender, calf tenderness, + AV access LUE + thrill + bruit Neurologic: alert, oriented x3, responsive Psychiatric: judgement/insight normal, memory normal, depressed affect Reflexes: 3+ knee (L), 3+ ankle (R) Skin: normal color, no rash, warm/dry, well hydrated Lymphatic: no trip Gigi Aguirre MD Mar 19, 2019 07:00
--- NOTE | 2019-03-19 07:27 | NUR ---
HAND-OFF: Received report from Heather Salguero RN. Pt in stable condition, SR, VS WNL Limit. Will continue to monitor closely.
--- NOTE | 2019-03-19 07:41 | NUR ---
NURSE NOTES: Report received from MARIELA Hahn. Pt in stable condition at this time. A+Ox1, no signs of pain/SOB. Respirations even and unlabored on bipap. IV sites patent and intact, with one running fluids @ prescribed rate. Pt is to have HD today with VIP. Pt shows no signs of distress. Bed at lowest position, brakes engaged, siderails x3, bed alarm on, and call light within reach. Bilateral wrist soft restraints noted. Will attempt to remove during morning medications to assess whether patient is continuing to remove bipap and desaturate.
[2019-03-19 08:00] VITALS: BP 120/48
[2019-03-19] MEDS: Pantoprazole Inj IVP SCH ×2 (08:00→20:33)
[2019-03-19] MEDS: Aspirin Baby 81mg NG SCH (08:00)
[2019-03-19] MEDS: Renvela 800mg Pkt NG SCH ×3 (08:01→16:25)
[2019-03-19] MEDS: Docusate 100mg/10ml Liq NG SCH ×3 (08:01→16:24)
[2019-03-19] MEDS: Vitamin D 1000 IU Tab ORAL SCH (08:01)
--- NOTE | 2019-03-19 08:12 | NUR ---
NURSE NOTES: Assessed patient and removed restraints. Skin intact and pulses present. Addendum: 03/19/19 at 0813 by Heather Carvajal RN restraint order d/fede
[2019-03-19] MEDS: Flonase Nasal Inhaler 16gm NASAL SCH (09:00)
--- NOTE | 2019-03-19 09:33 | Infectious Diseases Prog Note ---
Assessment/Plan Assessment/Plan IMPRESSION: 1. Leukocytosis, resolved 2. Lactic acidosis. 3.Doubt sepsis 4. Dap-EL-ccrmbfykh NV. 5. End-stage renal disease, on hemodialysis. 6. Diabetes mellitus, type 2. 7. Hypertension. 8. BPH. 9. Systolic CHF with ejection fraction of 40%. 10. Dysphagia 11. Hypoxemia 12. Pulmonary edema versus pneumonia RECOMMENDATIONS: Continue Cefepime DNR, DNI on palliative care Subjective ROS Limited/Unobtainable: Yes Neurologic: Reports: other - less responsive Allergies: Coded Allergies: No Known Allergies (Unverified , 05/25/13) Objective Vital Signs Last 24 Hour Vital Signs Date Time Temp Pulse Resp B/P (MAP) Pulse Ox O2 Delivery O2 Flow Rate FiO2 03/19/19 09:19 66 23 100 Facial 40 03/19/19 08:00 35 03/19/19 07:09 69 23 100 Facial 40 70 20 100 Bi-Pap 40 03/19/19 07:09 100 Bi-Pap 03/19/19 05:42 65 30 100 Facial 40 03/19/19 04:00 66 03/19/19 03:56 98.6 66 27 109/80 (90) 91 03/19/19 03:52 35 03/19/19 03:52 Bi-pap 03/19/19 03:11 65 26 100 Facial 40 03/19/19 01:18 67 25 98 Facial 40 70 26 100 Bi-Pap 40 03/19/19 00:00 67 03/19/19 00:00 Bi-pap 03/19/19 00:00 97.0 70 27 131/60 (83) 91 03/18/19 23:05 67 25 100 Facial 40 03/18/19 21:26 72 26 98 Facial 40 03/18/19 20:00 Bi-pap 03/18/19 20:00 70 03/18/19 20:00 98.0 71 30 111/44 (66) 99 03/18/19 20:00 35 03/18/19 18:57 71 20 99 Facial 40 72 22 100 Bi-Pap 40 03/18/19 18:56 99 Bi-Pap 40 03/18/19 16:39 72 29 96 Full Face 40 03/18/19 16:00 97.0 71 31 108/33 (58) 91 03/18/19 16:00 Bi-pap 03/18/19 16:00 35 03/18/19 15:33 71 30 99 Facial 40 03/18/19 15:25 70 03/18/19 14:45 90/42 03/18/19 13:52 68 31 97 Facial 40 69 28 99 Bi-Pap 40 03/18/19 12:03 70 03/18/19 12:00 97.0 72 31 90/42 (58) 91 03/18/19 12:00 35 03/18/19 12:00 Bi-pap 03/18/19 09:32 70 38 91 Facial 35 Height (Feet): 5 Height (Inches): 5.00 Weight (Pounds): 135 HEENT: mucous membranes moist Respiratory/Chest: lungs clear, other - on BIPAP Cardiovascular: normal rate Abdomen: soft, non tender Extremities: no edema Neurologic/Psychiatric: unresponsiveness Musculoskeletal: atrophy Laboratory Tests Test 03/19/19 03:45 White Blood Count 10.3 K/UL (4.8-10.8) Red Blood Count 2.56 M/UL (4.70-6.10) L Hemoglobin 8.1 G/DL (14.2-18.0) L Hematocrit 25.0 % (42.0-52.0) L Mean Corpuscular Volume 98 FL (80-99) Mean Corpuscular Hemoglobin 31.6 PG (27.0-31.0) H Mean Corpuscular Hemoglobin Concent 32.4 G/DL (32.0-36.0) Red Cell Distribution Width 14.7 % (11.6-14.8) Platelet Count 86 K/UL (150-450) L Mean Platelet Volume 7.6 FL (6.5-10.1) Neutrophils (%) (Auto) % (45.0-75.0) Lymphocytes (%) (Auto) % (20.0-45.0) Monocytes (%) (Auto) % (1.0-10.0) Eosinophils (%) (Auto) % (0.0-3.0) Basophils (%) (Auto) % (0.0-2.0) Sodium Level 143 MMOL/L (136-145) Potassium Level 4.0 MMOL/L (3.5-5.1) Chloride Level 103 MMOL/L (98-107) Carbon Dioxide Level 33 MMOL/L (21-32) H Anion Gap 7 mmol/L (5-15) Blood Urea Nitrogen 52 mg/dL (7-18) H Creatinine 6.5 MG/DL (0.55-1.30) H Estimat Glomerular Filtration Rate mL/min (>60) Glucose Level 141 MG/DL (74-106) H Uric Acid 7.0 MG/DL (2.6-7.2) Calcium Level 8.2 MG/DL (8.5-10.1) L Phosphorus Level 2.7 MG/DL (2.5-4.9) Magnesium Level 2.3 MG/DL (1.8-2.4) Total Bilirubin 0.8 MG/DL (0.2-1.0) Aspartate Amino Transf (AST/SGOT) 28 U/L (15-37) Alanine Aminotransferase (ALT/SGPT) 18 U/L (12-78) Alkaline Phosphatase 134 U/L (46-116) H Troponin I 0.308 ng/mL (0.000-0.056) C-Reactive Protein, Quantitative 28.4 mg/dL (0.00-0.90) H Pro-B-Type Natriuretic Peptide Pending Total Protein 6.5 G/DL (6.4-8.2) Albumin 1.9 G/DL (3.4-5.0) L Globulin 4.6 g/dL Albumin/Globulin Ratio 0.4 (1.0-2.7) L Current Medications Medications (Trade) Dose Ordered Sig/Stephany Route PRN Reason Start Time Stop Time Status Last Admin Dose Admin Acetaminophen (Tylenol) 650 mg Q6H PRN ORAL Mild Pain/Temp > 100.5 03/09/19 07:01 04/07/19 07:00 03/10/19 03:10 Albuterol/ Ipratropium (Albuterol/ Ipratropium) 3 ml Q6HRT HHN 03/14/19 19:00 03/19/19 18:59 03/19/19 06:59 Aspirin (ASA) 81 mg DAILY NG 03/16/19 09:00 04/07/19 08:59 03/16/19 08:19 Atorvastatin Calcium (Lipitor) 20 mg BEDTIME NG 03/15/19 21:00 04/07/19 20:59 03/15/19 21:04 Carvedilol (Coreg) 3.125 mg EVERY 12 HOURS NG 03/15/19 21:00 04/09/19 20:59 03/16/19 08:19 Cefepime HCl 1 gm/ Dextrose 55 ml @ 110 mls/hr Q24H IVPB 03/14/19 21:00 03/21/19 20:59 03/18/19 22:53 Clonidine HCl (Catapres Tab) 0.1 mg Q8H PRN SL For High Blood Pressure 03/11/19 20:00 04/10/19 19:59 Dextrose 1,000 ml @ 30 mls/hr Q24H IV 03/09/19 14:07 04/08/19 14:06 03/18/19 14:45 Dextrose (Dextrose 50%) 25 ml Q30M PRN IV Hypoglycemia 03/09/19 07:00 04/07/19 06:59 Dextrose (Dextrose 50%) 50 ml Q30M PRN IV Hypoglycemia 03/09/19 07:00 04/07/19 06:59 Docusate Sodium (Colace) 100 mg THREE TIMES A DAY NG 03/15/19 18:00 04/14/19 17:59 03/16/19 17:26 Epoetin Best (Epoetin Best(ESRD on dialysis)) 3,000 unit SUBQ 03/17/19 21:00 04/16/19 20:59 03/17/19 21:03 Epoetin Best (Epoetin Best(ESRD on dialysis)) 4,000 unit SUN- SUBQ 03/17/19 21:00 04/16/19 20:59 03/17/19 21:03 Finasteride (Proscar) 5 mg DAILY ORAL 03/16/19 09:00 04/07/19 08:59 03/16/19 08:11 Fluticasone Propionate (Flonase) 2 spray DAILY NASAL 03/09/19 09:00 04/07/19 08:59 03/17/19 08:42 Guaifenesin/ Codeine Phosphate (Robitussin with codeine) 5 ml Q4H PRN ORAL For Cough 03/09/19 07:00 04/07/19 06:59 03/10/19 03:09 Hydralazine HCl (Apresoline) 25 mg Q4H PRN NG bp over 160 syst 03/15/19 19:03 04/07/19 07:02 Lorazepam (Ativan) 1 mg Q6H PRN ORAL For Anxiety 03/12/19 12:28 03/19/19 12:27 Nitroglycerin (Ntg) 1 patch Q24H TDERMAL 03/09/19 14:30 04/08/19 14:29 03/18/19 14:45 Ondansetron HCl (Zofran) 4 mg Q4H PRN IVP Nausea & Vomiting 03/09/19 07:03 04/08/19 07:02 03/10/19 03:09 Pantoprazole (Protonix) 40 mg EVERY 12 HOURS IVP 03/18/19 21:00 04/14/19 17:59 03/18/19 22:55 Risperidone (RisperDAL) 1 mg BEDTIME NG 03/15/19 21:00 04/11/19 20:59 03/15/19 21:04 Sevelamer Carbonate (Renvela) 1,600 mg THREE TIMES A DAY NG 03/15/19 18:00 04/14/19 17:59 03/16/19 17:26 Tamsulosin HCl (Flomax) 0.4 mg BEDTIME ORAL 03/09/19 21:00 04/07/19 20:59 03/15/19 21:04 Vitamin D (Vitamin D) 1,000 intlu DAILY ORAL 03/16/19 09:00 04/15/19 08:59 03/16/19 08:10 Boyd Tee MD Mar 19, 2019 09:33
--- NOTE | 2019-03-19 11:00 | NUR ---
NURSE NOTES: HD nurse @ bedside
--- NOTE | 2019-03-19 11:02 | Nephrology Progress Note ---
Assessment/Plan Problem List: (1) ESRD (end stage renal disease) on dialysis (2) Cardiomyopathy (3) NSTEMI (non-ST elevated myocardial infarction) Assessment: Troponin lowering (4) Acute respiratory failure with hypoxia and hypercapnia Assessment ESRD- HTN Anemia DM CAD- Cardiomyopathy s/p SEPSIS DE Plan recent 2D echo 40% EjFx Pulm Toilet and support HD 03/19 next 03/21 Keep BP in check - Hold bp meds for now due to low BP Albumin bolus ASA Nitrate per consultants per orders ? need for PEG as NGt always pulled out ? discussed with Dr Cornelius and Estelita Subjective ROS Limited/Unobtainable: No Constitutional: Reports: malaise, weakness Objective Objective Last 24 Hour Vital Signs Date Time Temp Pulse Resp B/P (MAP) Pulse Ox O2 Delivery O2 Flow Rate FiO2 03/19/19 09:19 66 23 100 Facial 40 03/19/19 08:00 70 03/19/19 08:00 98.1 70 26 120/48 (72) 98 03/19/19 08:00 35 03/19/19 07:09 69 23 100 Facial 40 70 20 100 Bi-Pap 40 03/19/19 07:09 100 Bi-Pap 03/19/19 05:42 65 30 100 Facial 40 03/19/19 04:00 66 03/19/19 03:56 98.6 66 27 109/80 (90) 91 03/19/19 03:52 35 03/19/19 03:52 Bi-pap 03/19/19 03:11 65 26 100 Facial 40 03/19/19 01:18 67 25 98 Facial 40 70 26 100 Bi-Pap 40 03/19/19 00:00 67 03/19/19 00:00 Bi-pap 03/19/19 00:00 97.0 70 27 131/60 (83) 91 03/18/19 23:05 67 25 100 Facial 40 03/18/19 21:26 72 26 98 Facial 40 03/18/19 20:00 Bi-pap 03/18/19 20:00 70 03/18/19 20:00 98.0 71 30 111/44 (66) 99 03/18/19 20:00 35 03/18/19 18:57 71 20 99 Facial 40 72 22 100 Bi-Pap 40 03/18/19 18:56 99 Bi-Pap 40 03/18/19 16:39 72 29 96 Full Face 40 03/18/19 16:00 97.0 71 31 108/33 (58) 91 03/18/19 16:00 Bi-pap 03/18/19 16:00 35 03/18/19 15:33 71 30 99 Facial 40 03/18/19 15:25 70 03/18/19 14:45 90/42 03/18/19 13:52 68 31 97 Facial 40 69 28 99 Bi-Pap 40 03/18/19 12:03 70 03/18/19 12:00 97.0 72 31 90/42 (58) 91 03/18/19 12:00 35 03/18/19 12:00 Bi-pap Intake and Output 03/18/19 03/19/19 19:00 07:00 Intake Total 337.5 ml 350 ml Balance 337.5 ml 350 ml IV Total 337.5 ml 350 ml # Voids 1 Laboratory Tests 03/19/19 03:45: White Blood Count 10.3, Red Blood Count 2.56L, Hemoglobin 8.1L, Hematocrit 25.0L , Mean Corpuscular Volume 98, Mean Corpuscular Hemoglobin 31.6H, Mean Corpuscular Hemoglobin Concent 32.4, Red Cell Distribution Width 14.7, Platelet Count 86L, Mean Platelet Volume 7.6, Neutrophils (%) (Auto) , Lymphocytes (%) ( Auto) , Monocytes (%) (Auto) , Eosinophils (%) (Auto) , Basophils (%) (Auto) , Sodium Level 143, Potassium Level 4.0, Chloride Level 103, Carbon Dioxide Level 33H, Anion Gap 7, Blood Urea Nitrogen 52H, Creatinine 6.5H, Estimat Glomerular Filtration Rate , Glucose Level 141H, Uric Acid 7.0, Calcium Level 8.2L, Phosphorus Level 2.7, Magnesium Level 2.3, Total Bilirubin 0.8, Aspartate Amino Transf (AST/SGOT) 28, Alanine Aminotransferase (ALT/SGPT) 18, Alkaline Phosphatase 134H, Troponin I 0.308H, C-Reactive Protein, Quantitative 28.4H, Pro -B-Type Natriuretic Peptide [Pending], Total Protein 6.5, Albumin 1.9L, Globulin 4.6, Albumin/Globulin Ratio 0.4L Height (Feet): 5 Height (Inches): 5.00 Weight (Pounds): 135 General Appearance: mild distress EENT: other - BIPAP Respiratory/Chest: decreased breath sounds Abdomen: distended Objective no change Mikey Brandt MD Mar 19, 2019 11:02
--- NOTE | 2019-03-19 11:30 | NUR ---
PT NOTE Attempted to see patient for PT treatment. Patient currently on dialysis, will follow up tomorrow.
[2019-03-19 12:00] VITALS: BP 104/52
--- NOTE | 2019-03-19 12:51 | Pulmonology Progress Note ---
Assessment/Plan Problems: (1) NSTEMI (non-ST elevated myocardial infarction) (2) ESRD (end stage renal disease) on dialysis (3) Cardiomyopathy (4) HTN (hypertension) (5) HLD (hyperlipidemia) (6) CVA (cerebral vascular accident) Assessment/Plan ASSESSMENT: The patient is an 83-year-old male with a history of prior CVA, end -stage renal disease, on dialysis, hypertension, hyperlipidemia, CAD, CVA, and BPH presenting with dizziness and [id number]-epfiwqnqi CA. He is fairly stable from a respiratory standpoint. PROBLEM LIST: 1. Non ST-elevation myocardial infarction. 2. Recent pneumonia. 3. Dizziness. 4. End-stage renal disease, on dialysis. 5. CAD. 6. Hypertension. 7. Hyperlipidemia. 8. Anemia. 9. Diabetes. TREATMENT PLAN: NO escalation, no ICU transfer Optimize pulmonary hygiene/mobilize as tolerated. Continue BiPAP for now, attempt to wean off Titrate O2 HHN's Abx: Cefepime Follow up Cardiology recommendations, medical management of non-STEMI. AC held 2/2 thrombocytopenia Monitor volumes and renal function, dialysis per Vangie/UF as tolerated DNAR/DNI Subjective Allergies: Coded Allergies: No Known Allergies (Unverified , 05/25/13) Subjective On BiPAP lethargic + cough + SOB Per family no PEG/NGT, DNAR Objective Last 24 Hour Vital Signs Date Time Temp Pulse Resp B/P (MAP) Pulse Ox O2 Delivery O2 Flow Rate FiO2 03/19/19 12:00 98.1 69 26 104/52 (69) 96 03/19/19 12:00 14.0 55 03/19/19 12:00 Bi-pap 03/19/19 09:19 66 23 100 Facial 40 03/19/19 08:00 70 03/19/19 08:00 98.1 70 26 120/48 (72) 98 03/19/19 08:00 35 03/19/19 08:00 Bi-pap 03/19/19 07:09 69 23 100 Facial 40 70 20 100 Bi-Pap 40 03/19/19 07:09 100 Bi-Pap 03/19/19 05:42 65 30 100 Facial 40 03/19/19 04:00 66 03/19/19 03:56 98.6 66 27 109/80 (90) 91 03/19/19 03:52 35 03/19/19 03:52 Bi-pap 03/19/19 03:11 65 26 100 Facial 40 03/19/19 01:18 67 25 98 Facial 40 70 26 100 Bi-Pap 40 03/19/19 00:00 67 03/19/19 00:00 Bi-pap 03/19/19 00:00 97.0 70 27 131/60 (83) 91 03/18/19 23:05 67 25 100 Facial 40 03/18/19 21:26 72 26 98 Facial 40 03/18/19 20:00 Bi-pap 03/18/19 20:00 70 03/18/19 20:00 98.0 71 30 111/44 (66) 99 03/18/19 20:00 35 03/18/19 18:57 71 20 99 Facial 40 72 22 100 Bi-Pap 40 03/18/19 18:56 99 Bi-Pap 40 03/18/19 16:39 72 29 96 Full Face 40 03/18/19 16:00 97.0 71 31 108/33 (58) 91 03/18/19 16:00 Bi-pap 03/18/19 16:00 35 03/18/19 15:33 71 30 99 Facial 40 03/18/19 15:25 70 03/18/19 14:45 90/42 03/18/19 13:52 68 31 97 Facial 40 69 28 99 Bi-Pap 40 Intake and Output 03/18/19 03/19/19 19:00 07:00 Intake Total 337.5 ml 350 ml Balance 337.5 ml 350 ml IV Total 337.5 ml 350 ml # Voids 1 General Appearance: cachetic, other - BiPAP HEENT: normocephalic, atraumatic, anicteric, mucous membranes moist Respiratory/Chest: rhonchi Cardiovascular: normal peripheral pulses, normal rate, regular rhythm Abdomen: normal bowel sounds, soft, non tender, no organomegaly, non distended , no mass Extremities: no cyanosis, no clubbing, no edema Laboratory Tests 03/19/19 03:45: White Blood Count 10.3, Red Blood Count 2.56L, Hemoglobin 8.1L, Hematocrit 25.0L , Mean Corpuscular Volume 98, Mean Corpuscular Hemoglobin 31.6H, Mean Corpuscular Hemoglobin Concent 32.4, Red Cell Distribution Width 14.7, Platelet Count 86L, Mean Platelet Volume 7.6, Neutrophils (%) (Auto) , Lymphocytes (%) ( Auto) , Monocytes (%) (Auto) , Eosinophils (%) (Auto) , Basophils (%) (Auto) , Sodium Level 143, Potassium Level 4.0, Chloride Level 103, Carbon Dioxide Level 33H, Anion Gap 7, Blood Urea Nitrogen 52H, Creatinine 6.5H, Estimat Glomerular Filtration Rate , Glucose Level 141H, Uric Acid 7.0, Calcium Level 8.2L, Phosphorus Level 2.7, Magnesium Level 2.3, Total Bilirubin 0.8, Aspartate Amino Transf (AST/SGOT) 28, Alanine Aminotransferase (ALT/SGPT) 18, Alkaline Phosphatase 134H, Troponin I 0.308H, C-Reactive Protein, Quantitative 28.4H, Pro -B-Type Natriuretic Peptide [Pending], Total Protein 6.5, Albumin 1.9L, Globulin 4.6, Albumin/Globulin Ratio 0.4L Current Medications Medications (Trade) Dose Ordered Sig/Stephany Route PRN Reason Start Time Stop Time Status Last Admin Dose Admin Acetaminophen (Tylenol) 650 mg Q6H PRN ORAL Mild Pain/Temp > 100.5 03/09/19 07:01 04/07/19 07:00 03/10/19 03:10 Albuterol/ Ipratropium (Albuterol/ Ipratropium) 3 ml Q6HRT HHN 03/14/19 19:00 03/19/19 18:59 03/19/19 06:59 Aspirin (ASA) 81 mg DAILY NG 03/16/19 09:00 04/07/19 08:59 03/16/19 08:19 Atorvastatin Calcium (Lipitor) 20 mg BEDTIME NG 03/15/19 21:00 04/07/19 20:59 03/15/19 21:04 Carvedilol (Coreg) 3.125 mg EVERY 12 HOURS NG 03/15/19 21:00 04/09/19 20:59 03/16/19 08:19 Cefepime HCl 500 mg/Dextrose 55 ml @ 110 mls/hr Q24H IV 03/19/19 21:00 03/26/19 20:59 Clonidine HCl (Catapres Tab) 0.1 mg Q8H PRN SL For High Blood Pressure 03/11/19 20:00 04/10/19 19:59 Dextrose 1,000 ml @ 30 mls/hr Q24H IV 03/09/19 14:07 04/08/19 14:06 03/18/19 14:45 Dextrose (Dextrose 50%) 25 ml Q30M PRN IV Hypoglycemia 03/09/19 07:00 04/07/19 06:59 Dextrose (Dextrose 50%) 50 ml Q30M PRN IV Hypoglycemia 03/09/19 07:00 04/07/19 06:59 Docusate Sodium (Colace) 100 mg THREE TIMES A DAY NG 03/15/19 18:00 04/14/19 17:59 03/16/19 17:26 Epoetin Best (Epoetin Best(ESRD on dialysis)) 3,000 unit SUN- SUBQ 03/17/19 21:00 04/16/19 20:59 03/17/19 21:03 Epoetin Best (Epoetin Best(ESRD on dialysis)) 4,000 unit SUBQ 03/17/19 21:00 04/16/19 20:59 03/17/19 21:03 Finasteride (Proscar) 5 mg DAILY ORAL 03/16/19 09:00 04/07/19 08:59 03/16/19 08:11 Fluticasone Propionate (Flonase) 2 spray DAILY NASAL 03/09/19 09:00 04/07/19 08:59 03/17/19 08:42 Guaifenesin/ Codeine Phosphate (Robitussin with codeine) 5 ml Q4H PRN ORAL For Cough 03/09/19 07:00 04/07/19 06:59 03/10/19 03:09 Hydralazine HCl (Apresoline) 25 mg Q4H PRN NG bp over 160 syst 03/15/19 19:03 04/07/19 07:02 Nitroglycerin (Ntg) 1 patch Q24H TDERMAL 03/09/19 14:30 04/08/19 14:29 03/18/19 14:45 Ondansetron HCl (Zofran) 4 mg Q4H PRN IVP Nausea & Vomiting 03/09/19 07:03 04/08/19 07:02 03/10/19 03:09 Pantoprazole (Protonix) 40 mg EVERY 12 HOURS IVP 03/18/19 21:00 04/14/19 17:59 03/18/19 22:55 Risperidone (RisperDAL) 1 mg BEDTIME NG 03/15/19 21:00 04/11/19 20:59 03/15/19 21:04 Sevelamer Carbonate (Renvela) 1,600 mg THREE TIMES A DAY NG 03/15/19 18:00 04/14/19 17:59 03/16/19 17:26 Tamsulosin HCl (Flomax) 0.4 mg BEDTIME ORAL 03/09/19 21:00 04/07/19 20:59 03/15/19 21:04 Vitamin D (Vitamin D) 1,000 intlu DAILY ORAL 03/16/19 09:00 04/15/19 08:59 03/16/19 08:10 Thaddeus Conrelius MD Mar 19, 2019 12:51
--- NOTE | 2019-03-19 13:02 | NUR ---
NURSE NOTES: Pt desaturating to 85% on venturi mask. RT @ bedside to give breathing tx and assess patient.
[2019-03-19] MEDS: Dextrose 10% 1,000 ML IV SCH ×2 (14:07→22:40)
--- NOTE | 2019-03-19 14:15 | NUR ---
NURSE NOTES: Bipap changed to 15/5, @ 60%
--- NOTE | 2019-03-19 15:05 | Cardiac Electrophysiology PN ---
Assessment/Plan Assessment/Plan 1. Troponin elevation due to renal failure. Troponin peak is 3.5 that is coming down to 1.88. Confused in restraints. No CP or SOB. EKG no acute changes. EF 40-45% On aspirin, Coreg 3.125 bid and Lipitor. Treat medically as DNR and DNI 2. Cardiomyopathy with EF of 40%. BNP is more than 35,000. Echo on 02/02/2019 showed EF of 55% to 60%, repeat echocardiogram showed EF 40%. On Coreg, Lisinopril 10 daily and HD 3. On Eliquis for CVA and PVD. No Fib or DVT or PE 4. End-stage renal disease, on hemodialysis. 5. Lactic acidosis. 6. Hyperlipidemia, on Lipitor. 7. Dysphagia. Family refused PEG 8. Respiratory failure on BIPAP. 9. DNR and DNI DW RN Subjective Subjective Off and on getting BIPAP . DNR and DNI . Objective Last 24 Hour Vital Signs Date Time Temp Pulse Resp B/P (MAP) Pulse Ox O2 Delivery O2 Flow Rate FiO2 03/19/19 13:18 72 27 92 Facial 70 75 25 96 Bi-Pap 70 03/19/19 12:00 72 03/19/19 12:00 98.1 69 26 104/52 (69) 96 03/19/19 12:00 14.0 55 03/19/19 12:00 Bi-pap 03/19/19 09:19 66 23 100 Facial 40 03/19/19 08:00 70 03/19/19 08:00 98.1 70 26 120/48 (72) 98 03/19/19 08:00 35 03/19/19 08:00 Bi-pap 03/19/19 07:09 69 23 100 Facial 40 70 20 100 Bi-Pap 40 03/19/19 07:09 100 Bi-Pap 03/19/19 05:42 65 30 100 Facial 40 03/19/19 04:00 66 03/19/19 03:56 98.6 66 27 109/80 (90) 91 03/19/19 03:52 35 03/19/19 03:52 Bi-pap 03/19/19 03:11 65 26 100 Facial 40 03/19/19 01:18 67 25 98 Facial 40 70 26 100 Bi-Pap 40 03/19/19 00:00 67 03/19/19 00:00 Bi-pap 03/19/19 00:00 97.0 70 27 131/60 (83) 91 03/18/19 23:05 67 25 100 Facial 40 03/18/19 21:26 72 26 98 Facial 40 03/18/19 20:00 Bi-pap 03/18/19 20:00 70 03/18/19 20:00 98.0 71 30 111/44 (66) 99 03/18/19 20:00 35 03/18/19 18:57 71 20 99 Facial 40 72 22 100 Bi-Pap 40 03/18/19 18:56 99 Bi-Pap 40 03/18/19 16:39 72 29 96 Full Face 40 03/18/19 16:00 97.0 71 31 108/33 (58) 91 03/18/19 16:00 Bi-pap 03/18/19 16:00 35 03/18/19 15:33 71 30 99 Facial 40 03/18/19 15:25 70 Intake and Output 03/18/19 03/19/19 19:00 07:00 Intake Total 337.5 ml 350 ml Balance 337.5 ml 350 ml IV Total 337.5 ml 350 ml # Voids 1 Laboratory Tests Test 03/19/19 03:45 White Blood Count 10.3 K/UL (4.8-10.8) Red Blood Count 2.56 M/UL (4.70-6.10) L Hemoglobin 8.1 G/DL (14.2-18.0) L Hematocrit 25.0 % (42.0-52.0) L Mean Corpuscular Volume 98 FL (80-99) Mean Corpuscular Hemoglobin 31.6 PG (27.0-31.0) H Mean Corpuscular Hemoglobin Concent 32.4 G/DL (32.0-36.0) Red Cell Distribution Width 14.7 % (11.6-14.8) Platelet Count 86 K/UL (150-450) L Mean Platelet Volume 7.6 FL (6.5-10.1) Neutrophils (%) (Auto) % (45.0-75.0) Lymphocytes (%) (Auto) % (20.0-45.0) Monocytes (%) (Auto) % (1.0-10.0) Eosinophils (%) (Auto) % (0.0-3.0) Basophils (%) (Auto) % (0.0-2.0) Sodium Level 143 MMOL/L (136-145) Potassium Level 4.0 MMOL/L (3.5-5.1) Chloride Level 103 MMOL/L (98-107) Carbon Dioxide Level 33 MMOL/L (21-32) H Anion Gap 7 mmol/L (5-15) Blood Urea Nitrogen 52 mg/dL (7-18) H Creatinine 6.5 MG/DL (0.55-1.30) H Estimat Glomerular Filtration Rate mL/min (>60) Glucose Level 141 MG/DL (74-106) H Uric Acid 7.0 MG/DL (2.6-7.2) Calcium Level 8.2 MG/DL (8.5-10.1) L Phosphorus Level 2.7 MG/DL (2.5-4.9) Magnesium Level 2.3 MG/DL (1.8-2.4) Total Bilirubin 0.8 MG/DL (0.2-1.0) Aspartate Amino Transf (AST/SGOT) 28 U/L (15-37) Alanine Aminotransferase (ALT/SGPT) 18 U/L (12-78) Alkaline Phosphatase 134 U/L (46-116) H Troponin I 0.308 ng/mL (0.000-0.056) C-Reactive Protein, Quantitative 28.4 mg/dL (0.00-0.90) H Pro-B-Type Natriuretic Peptide Pending Total Protein 6.5 G/DL (6.4-8.2) Albumin 1.9 G/DL (3.4-5.0) L Globulin 4.6 g/dL Albumin/Globulin Ratio 0.4 (1.0-2.7) L Objective HEAD AND NECK: No JVD.BIPAP on LUNGS: Clear. CARDIOVASCULAR: Regular S1 and S2 with no gallop or murmur. ABDOMEN: Soft. EXTREMITIES: No pitting edema. Dialysis access in the left arm. Dariel Corcoran MD Mar 19, 2019 15:05
[2019-03-19] MEDS: Nitroglycerin Patch 0.4mg TDERMAL SCH (15:15)
[2019-03-19 16:00] VITALS: BP 130/50
--- NOTE | 2019-03-19 17:45 | NUR ---
NURSE NOTES: Family @ bedside
--- NOTE | 2019-03-19 18:41 | General Progress Note ---
Assessment/Plan Problem List: (1) Hypoglycemia ICD Codes: E16.2 - Hypoglycemia, unspecified SNOMED: 879367851 (2) Hemodialysis disequilibrium syndrome ICD Codes: E87.8 - Other disorders of electrolyte and fluid balance, not elsewhere classified SNOMED: 01909471 (3) NSTEMI (non-ST elevated myocardial infarction) ICD Codes: I21.4 - Non-ST elevation (NSTEMI) myocardial infarction SNOMED: 95628200 (4) ESRD (end stage renal disease) on dialysis ICD Codes: N18.6 - End stage renal disease; Z99.2 - Dependence on renal dialysis SNOMED: 973951111 (5) Diabetes ICD Codes: E11.9 - Type 2 diabetes mellitus without complications SNOMED: 31530422 (6) vascular dementia Assessment/Plan: glucose values are stable w/o hypoglycemia no need for diabetic medications continue to monitor glucose hypoglycemia protocol in order Subjective ROS Limited/Unobtainable: Yes Allergies: Coded Allergies: No Known Allergies (Unverified , 05/25/13) Subjective events noted glucose values are stable he is on BiPAP Item Value Date Time Bedside Blood Glucose 135 mg/dl H 03/18/19 0630 Bedside Blood Glucose 129 mg/dl H 03/17/19 2100 Bedside Blood Glucose 111 mg/dl 03/17/19 1630 Bedside Blood Glucose 115 mg/dl 03/17/19 1130 Bedside Blood Glucose 110 mg/dl 03/17/19 0630 Bedside Blood Glucose 134 mg/dl H 03/19/19 1716 Bedside Blood Glucose 96 mg/dl 03/19/19 1200 Bedside Blood Glucose 119 mg/dl 03/19/19 0600 Bedside Blood Glucose 114 mg/dl 03/19/19 0000 Bedside Blood Glucose 122 mg/dl H 03/18/19 1802 Objective Last 24 Hour Vital Signs Date Time Temp Pulse Resp B/P (MAP) Pulse Ox O2 Delivery O2 Flow Rate FiO2 03/19/19 16:45 75 26 98 Facial 30 03/19/19 16:00 Bi-pap 03/19/19 16:00 97.8 75 26 130/50 (76) 99 03/19/19 16:00 71 03/19/19 16:00 50 03/19/19 15:15 121/51 03/19/19 15:09 74 24 100 Facial 50 03/19/19 13:18 72 27 92 Facial 70 75 25 96 Bi-Pap 70 03/19/19 12:00 72 03/19/19 12:00 98.1 69 26 104/52 (69) 96 03/19/19 12:00 14.0 55 03/19/19 12:00 Bi-pap 03/19/19 09:19 66 23 100 Facial 40 03/19/19 08:00 70 03/19/19 08:00 98.1 70 26 120/48 (72) 98 03/19/19 08:00 35 03/19/19 08:00 Bi-pap 03/19/19 07:09 69 23 100 Facial 40 70 20 100 Bi-Pap 40 03/19/19 07:09 100 Bi-Pap 03/19/19 05:42 65 30 100 Facial 40 03/19/19 04:00 66 03/19/19 03:56 98.6 66 27 109/80 (90) 91 03/19/19 03:52 35 03/19/19 03:52 Bi-pap 03/19/19 03:11 65 26 100 Facial 40 03/19/19 01:18 67 25 98 Facial 40 70 26 100 Bi-Pap 40 03/19/19 00:00 67 03/19/19 00:00 Bi-pap 03/19/19 00:00 97.0 70 27 131/60 (83) 91 03/18/19 23:05 67 25 100 Facial 40 03/18/19 21:26 72 26 98 Facial 40 03/18/19 20:00 Bi-pap 03/18/19 20:00 70 03/18/19 20:00 98.0 71 30 111/44 (66) 99 03/18/19 20:00 35 03/18/19 18:57 71 20 99 Facial 40 72 22 100 Bi-Pap 40 03/18/19 18:56 99 Bi-Pap 40 Intake and Output 03/18/19 03/19/19 19:00 07:00 Intake Total 337.5 ml 350 ml Balance 337.5 ml 350 ml IV Total 337.5 ml 350 ml # Voids 1 Laboratory Tests 03/19/19 03:45: White Blood Count 10.3, Red Blood Count 2.56L, Hemoglobin 8.1L, Hematocrit 25.0L , Mean Corpuscular Volume 98, Mean Corpuscular Hemoglobin 31.6H, Mean Corpuscular Hemoglobin Concent 32.4, Red Cell Distribution Width 14.7, Platelet Count 86L, Mean Platelet Volume 7.6, Neutrophils (%) (Auto) , Lymphocytes (%) ( Auto) , Monocytes (%) (Auto) , Eosinophils (%) (Auto) , Basophils (%) (Auto) , Sodium Level 143, Potassium Level 4.0, Chloride Level 103, Carbon Dioxide Level 33H, Anion Gap 7, Blood Urea Nitrogen 52H, Creatinine 6.5H, Estimat Glomerular Filtration Rate , Glucose Level 141H, Uric Acid 7.0, Calcium Level 8.2L, Phosphorus Level 2.7, Magnesium Level 2.3, Total Bilirubin 0.8, Aspartate Amino Transf (AST/SGOT) 28, Alanine Aminotransferase (ALT/SGPT) 18, Alkaline Phosphatase 134H, Troponin I 0.308H, C-Reactive Protein, Quantitative 28.4H, Pro -B-Type Natriuretic Peptide [Pending], Total Protein 6.5, Albumin 1.9L, Globulin 4.6, Albumin/Globulin Ratio 0.4L Height (Feet): 5 Height (Inches): 5.00 Weight (Pounds): 135 Neck: normal alignment Cardiovascular: normal rate Respiratory/Chest: decreased breath sounds Abdomen: normal bowel sounds Pelvis: normal external exam Objective Current Medications Medications (Trade) Dose Ordered Sig/Stephany Route PRN Reason Start Time Stop Time Status Last Admin Dose Admin Acetaminophen (Tylenol) 650 mg Q6H PRN ORAL Mild Pain/Temp > 100.5 03/09/19 07:01 04/07/19 07:00 03/10/19 03:10 Albuterol/ Ipratropium (Albuterol/ Ipratropium) 3 ml Q6HRT HHN 03/14/19 19:00 03/19/19 18:59 03/19/19 13:16 Aspirin (ASA) 81 mg DAILY NG 03/16/19 09:00 04/07/19 08:59 03/16/19 08:19 Atorvastatin Calcium (Lipitor) 20 mg BEDTIME NG 03/15/19 21:00 04/07/19 20:59 03/15/19 21:04 Carvedilol (Coreg) 3.125 mg EVERY 12 HOURS NG 03/15/19 21:00 04/09/19 20:59 1/19/20 08:19 Cefepime HCl 500 mg/Dextrose 55 ml @ 110 mls/hr Q24H IV 03/19/19 21:00 03/26/19 20:59 Clonidine HCl (Catapres Tab) 0.1 mg Q8H PRN SL For High Blood Pressure 03/11/19 20:00 04/10/19 19:59 Dextrose 1,000 ml @ 30 mls/hr Q24H IV 03/09/19 14:07 04/08/19 14:06 03/18/19 14:45 Dextrose (Dextrose 50%) 25 ml Q30M PRN IV Hypoglycemia 03/09/19 07:00 04/07/19 06:59 Dextrose (Dextrose 50%) 50 ml Q30M PRN IV Hypoglycemia 03/09/19 07:00 04/07/19 06:59 Docusate Sodium (Colace) 100 mg THREE TIMES A DAY NG 03/15/19 18:00 04/14/19 17:59 03/16/19 17:26 Epoetin Best (Epoetin Best(ESRD on dialysis)) 3,000 unit SUN- SUBQ 03/17/19 21:00 04/16/19 20:59 03/17/19 21:03 Epoetin Best (Epoetin Best(ESRD on dialysis)) 4,000 unit SUN- SUBQ 03/17/19 21:00 04/16/19 20:59 03/17/19 21:03 Finasteride (Proscar) 5 mg DAILY ORAL 03/16/19 09:00 04/07/19 08:59 03/16/19 08:11 Fluticasone Propionate (Flonase) 2 spray DAILY NASAL 03/09/19 09:00 04/07/19 08:59 03/17/19 08:42 Guaifenesin/ Codeine Phosphate (Robitussin with codeine) 5 ml Q4H PRN ORAL For Cough 03/09/19 07:00 04/07/19 06:59 03/10/19 03:09 Hydralazine HCl (Apresoline) 25 mg Q4H PRN NG bp over 160 syst 03/15/19 19:03 04/07/19 07:02 Nitroglycerin (Ntg) 1 patch Q24H TDERMAL 03/09/19 14:30 04/08/19 14:29 03/19/19 15:15 Ondansetron HCl (Zofran) 4 mg Q4H PRN IVP Nausea & Vomiting 03/09/19 07:03 04/08/19 07:02 03/10/19 03:09 Pantoprazole (Protonix) 40 mg EVERY 12 HOURS IVP 03/18/19 21:00 04/14/19 17:59 03/18/19 22:55 Risperidone (RisperDAL) 1 mg BEDTIME NG 03/15/19 21:00 04/11/19 20:59 03/15/19 21:04 Sevelamer Carbonate (Renvela) 1,600 mg THREE TIMES A DAY NG 03/15/19 18:00 04/14/19 17:59 03/16/19 17:26 Tamsulosin HCl (Flomax) 0.4 mg BEDTIME ORAL 03/09/19 21:00 04/07/19 20:59 03/15/19 21:04 Vitamin D (Vitamin D) 1,000 intlu DAILY ORAL 03/16/19 09:00 04/15/19 08:59 03/16/19 08:10 Shawn Saldana MD Mar 19, 2019 18:41
--- NOTE | 2019-03-19 19:10 | NUR ---
HAND-OFF: Report given to MARIELA Purvis. Pt in stable condition; plan of care endorsed.
--- NOTE | 2019-03-19 19:11 | NUR ---
NURSE NOTES: Received patient from MARIELA Romero. Patient is observed in bed and is currently sleeping, no s/sx of pain noted at this time. Patient is currently on Bipap settings 15/5 FiO2 30% with an O2 saturation of 98% noted. No s/sx of respiratory distress noted at this time. site monitor shows SR with current heart rate of 70. No acute cardiac distress noted. Skin alterations noted. Right AC 20g and Right hand 22g IV catheters noted which remain asymptomatic, intact and patent. Safety and aspiration precautions observed. Bed remains in the lowest position with safety wheels locked, side rails up X3, call light within reach and bed alarm activated. Will continue to monitor.
[2019-03-19 20:00] VITALS: BP 128/72
[2019-03-19] MEDS: Atorvastatin 20mg tab NG SCH (20:19)
[2019-03-19] MEDS: Tamsulosin 0.4mg cap ORAL SCH (20:20)
[2019-03-19] MEDS: Epoetin Alfa-EPBX(ESRD on dialysis)3000 units/ml vial SUBQ SCH (20:31)
[2019-03-19] MEDS: Epoetin Alfa-EPBX(ESRD on dialysis)4000 units/ml vial SUBQ SCH (20:31)
[2019-03-19] MEDS: Cefepime HCl 500 MG in D5W 55 ML IV SCH (20:31)
--- NOTE | 2019-03-19 20:48 | General Progress Note ---
Assessment/Plan Assessment/Plan: Assessment - Failed swallow, aspiration risk - resp failure - still too high a risk for EGD - NSTEMI - thrombocytopenia - PNA - CAD - ESRD, HD - OBS - Poor prognosis Recommendations - Pulmonary f/u - follow resp parameters closely - no plans for PEG, unless intubated or trach placed - Family discussion Subjective Allergies: Coded Allergies: No Known Allergies (Unverified , 05/25/13) Subjective Above noted BIPAP being used Objective Last 24 Hour Vital Signs Date Time Temp Pulse Resp B/P (MAP) Pulse Ox O2 Delivery O2 Flow Rate FiO2 03/19/19 19:35 98 Bi-Pap 30 03/19/19 19:29 71 27 98 Facial 30 03/19/19 16:45 75 26 98 Facial 30 03/19/19 16:00 Bi-pap 03/19/19 16:00 97.8 75 26 130/50 (76) 99 03/19/19 16:00 71 03/19/19 16:00 50 03/19/19 15:15 121/51 03/19/19 15:09 74 24 100 Facial 50 03/19/19 13:18 72 27 92 Facial 70 75 25 96 Bi-Pap 70 03/19/19 12:00 72 03/19/19 12:00 98.1 69 26 104/52 (69) 96 03/19/19 12:00 14.0 55 03/19/19 12:00 Bi-pap 03/19/19 09:19 66 23 100 Facial 40 03/19/19 08:00 70 03/19/19 08:00 98.1 70 26 120/48 (72) 98 03/19/19 08:00 35 03/19/19 08:00 Bi-pap 03/19/19 07:09 69 23 100 Facial 40 70 20 100 Bi-Pap 40 03/19/19 07:09 100 Bi-Pap 03/19/19 05:42 65 30 100 Facial 40 03/19/19 04:00 66 03/19/19 03:56 98.6 66 27 109/80 (90) 91 03/19/19 03:52 35 03/19/19 03:52 Bi-pap 03/19/19 03:11 65 26 100 Facial 40 03/19/19 01:18 67 25 98 Facial 40 70 26 100 Bi-Pap 40 03/19/19 00:00 67 03/19/19 00:00 Bi-pap 03/19/19 00:00 97.0 70 27 131/60 (83) 91 03/18/19 23:05 67 25 100 Facial 40 03/18/19 21:26 72 26 98 Facial 40 Intake and Output 03/18/19 03/19/19 19:00 07:00 Intake Total 337.5 ml 350 ml Balance 337.5 ml 350 ml IV Total 337.5 ml 350 ml # Voids 1 Laboratory Tests 03/19/19 03:45: White Blood Count 10.3, Red Blood Count 2.56L, Hemoglobin 8.1L, Hematocrit 25.0L , Mean Corpuscular Volume 98, Mean Corpuscular Hemoglobin 31.6H, Mean Corpuscular Hemoglobin Concent 32.4, Red Cell Distribution Width 14.7, Platelet Count 86L, Mean Platelet Volume 7.6, Neutrophils (%) (Auto) , Lymphocytes (%) ( Auto) , Monocytes (%) (Auto) , Eosinophils (%) (Auto) , Basophils (%) (Auto) , Sodium Level 143, Potassium Level 4.0, Chloride Level 103, Carbon Dioxide Level 33H, Anion Gap 7, Blood Urea Nitrogen 52H, Creatinine 6.5H, Estimat Glomerular Filtration Rate , Glucose Level 141H, Uric Acid 7.0, Calcium Level 8.2L, Phosphorus Level 2.7, Magnesium Level 2.3, Total Bilirubin 0.8, Aspartate Amino Transf (AST/SGOT) 28, Alanine Aminotransferase (ALT/SGPT) 18, Alkaline Phosphatase 134H, Troponin I 0.308H, C-Reactive Protein, Quantitative 28.4H, Pro -B-Type Natriuretic Peptide [Pending], Total Protein 6.5, Albumin 1.9L, Globulin 4.6, Albumin/Globulin Ratio 0.4L Height (Feet): 5 Height (Inches): 5.00 Weight (Pounds): 135 Objective Elderly man NCAT supple Coarse ronchi RR Abd soft ND Neuro confused Mann Aguilar MD Mar 19, 2019 20:48
--- NOTE | 2019-03-19 22:47 | General Progress Note ---
Assessment/Plan Assessment/Plan: respiratory failure aspiration risk NSTEMI renal failure diabeters persistent hypoglycemia ho pneumonia ho elevated lactic acid htn hld thrombocytopenia bipap prn aggressive pulmonaryhygiene, followed by Dr Adryan HENRY eval noted , pos aspirate eliquis held heme eval apprecaiated aspiration precutions\pulmonary hygiene echo noted, decreaed EF endo eval appreciated dialysis dependent abx per ID dw Dr Burk, on eliquis due to previous stroke paf hold elliquis due to low platelet dvt and ulcer prophylaxis dw family they dont want aggressive measure want him to be comfortable DNR DNI, they dont want tube feeds no intubation considerig palliative measures Subjective Allergies: Coded Allergies: No Known Allergies (Unverified , 05/25/13) Subjective seen in am patient removed ng tube currently on bipap family have decided no ng or gtube placment and want to pursue palliative measures Objective Last 24 Hour Vital Signs Date Time Temp Pulse Resp B/P (MAP) Pulse Ox O2 Delivery O2 Flow Rate FiO2 03/19/19 21:08 85 28 95 Facial 30 03/19/19 20:00 30 03/19/19 20:00 Bi-pap 03/19/19 20:00 97.6 71 25 128/72 (90) 96 03/19/19 19:35 98 Bi-Pap 30 03/19/19 19:29 71 27 98 Facial 30 03/19/19 19:04 72 03/19/19 16:45 75 26 98 Facial 30 03/19/19 16:00 Bi-pap 03/19/19 16:00 97.8 75 26 130/50 (76) 99 03/19/19 16:00 71 03/19/19 16:00 50 03/19/19 15:15 121/51 03/19/19 15:09 74 24 100 Facial 50 03/19/19 13:18 72 27 92 Facial 70 75 25 96 Bi-Pap 70 03/19/19 12:00 72 03/19/19 12:00 98.1 69 26 104/52 (69) 96 03/19/19 12:00 14.0 55 03/19/19 12:00 Bi-pap 03/19/19 09:19 66 23 100 Facial 40 03/19/19 08:00 70 03/19/19 08:00 98.1 70 26 120/48 (72) 98 1/22/20 08:00 35 03/19/19 08:00 Bi-pap 03/19/19 07:09 69 23 100 Facial 40 70 20 100 Bi-Pap 40 03/19/19 07:09 100 Bi-Pap 03/19/19 05:42 65 30 100 Facial 40 03/19/19 04:00 66 03/19/19 03:56 98.6 66 27 109/80 (90) 91 03/19/19 03:52 35 03/19/19 03:52 Bi-pap 03/19/19 03:11 65 26 100 Facial 40 03/19/19 01:18 67 25 98 Facial 40 70 26 100 Bi-Pap 40 03/19/19 00:00 67 03/19/19 00:00 Bi-pap 03/19/19 00:00 97.0 70 27 131/60 (83) 91 03/18/19 23:05 67 25 100 Facial 40 Intake and Output 03/18/19 03/19/19 19:00 07:00 Intake Total 337.5 ml 350 ml Balance 337.5 ml 350 ml IV Total 337.5 ml 350 ml # Voids 1 Laboratory Tests 03/19/19 03:45: White Blood Count 10.3, Red Blood Count 2.56L, Hemoglobin 8.1L, Hematocrit 25.0L , Mean Corpuscular Volume 98, Mean Corpuscular Hemoglobin 31.6H, Mean Corpuscular Hemoglobin Concent 32.4, Red Cell Distribution Width 14.7, Platelet Count 86L, Mean Platelet Volume 7.6, Neutrophils (%) (Auto) , Lymphocytes (%) ( Auto) , Monocytes (%) (Auto) , Eosinophils (%) (Auto) , Basophils (%) (Auto) , Sodium Level 143, Potassium Level 4.0, Chloride Level 103, Carbon Dioxide Level 33H, Anion Gap 7, Blood Urea Nitrogen 52H, Creatinine 6.5H, Estimat Glomerular Filtration Rate , Glucose Level 141H, Uric Acid 7.0, Calcium Level 8.2L, Phosphorus Level 2.7, Magnesium Level 2.3, Total Bilirubin 0.8, Aspartate Amino Transf (AST/SGOT) 28, Alanine Aminotransferase (ALT/SGPT) 18, Alkaline Phosphatase 134H, Troponin I 0.308H, C-Reactive Protein, Quantitative 28.4H, Pro -B-Type Natriuretic Peptide [Pending], Total Protein 6.5, Albumin 1.9L, Globulin 4.6, Albumin/Globulin Ratio 0.4L Height (Feet): 5 Height (Inches): 5.00 Weight (Pounds): 135 General Appearance: WD/WN Neck: supple Cardiovascular: normal rate Respiratory/Chest: decreased breath sounds Abdomen: soft Viktor García MD Mar 19, 2019 22:47
[2019-03-20] VITALS: BP 110/50
--- NOTE | 2019-03-20 00:15 | NUR ---
NURSE NOTES: Pt provided with bed bath, oral care, wound care and linen change. Pt tolerated care well. No bowel movement noted. Bed remains in the lowest position with safety wheels engaged locked, side rails up X3, call light within reach and bed alarm activated. Will continue to monitor.
--- NOTE | 2019-03-20 03:36 | NUR ---
NURSE NOTES: Pt continues to remove BiPap mask, redness noted around rim of bipap mask. Pt switched to venturi mask FiO2 @ 55% in order to off load pressure. Pt continues to have an SaO2 of 92-96%. Pt is tolerating venturi mask well. Will continue to monitor.
[2019-03-20 04:00] VITALS: BP 123/50
--- NOTE | 2019-03-20 05:00 | NUR ---
NURSE NOTES: Called [facility] to schedule HD for 03/21/19; spoke with Moreno who confirmed.
--- NOTE | 2019-03-20 07:07 | NUR ---
HAND-OFF: Report given to Melissa Webster RN. Pt remains stable at this time.
--- NOTE | 2019-03-20 07:10 | NUR ---
NURSE NOTES: Report received from Lashell Young RN.Pt awake confused,with Venturi mask 55%,noted no resp distress,no signs of pain or discomfort, SR on the monitor,Pt anuric,HD pt with EDMOND AV Shunt ,skin warm and dry,IV site to RH intact with IVF D10 at 30 ml/hr,SR up x2 HOB elevated bed lock in lowest position will continue with plans of care.
--- NOTE | 2019-03-20 07:20 | Progress Note ---
DATE: 03/19/2019 SUBJECTIVE: The patient is in bed. Continues to attempt to come out of the restraints. Confused and disoriented. MENTAL STATUS EXAMINATION: Mood is agitated. Affect is flat. Thought process, disorganized. Thought content, no suicidal or homicidal ideation. ASSESSMENT: Dementia with behavior disturbance. PLAN: 1. We will continue to readjust the medications. 2. Provide the patient with reality orientation and supportive therapy. Zi Carrera M.D. DR: TASHIA JOB#: [id number] CC:
--- NOTE | 2019-03-20 07:30 | General Progress Note ---
Assessment/Plan Problem List: (1) Hypoglycemia ICD Codes: E16.2 - Hypoglycemia, unspecified SNOMED: 926791176 (2) Hemodialysis disequilibrium syndrome ICD Codes: E87.8 - Other disorders of electrolyte and fluid balance, not elsewhere classified SNOMED: 53349825 (3) NSTEMI (non-ST elevated myocardial infarction) ICD Codes: I21.4 - Non-ST elevation (NSTEMI) myocardial infarction SNOMED: 24437407 (4) ESRD (end stage renal disease) on dialysis ICD Codes: N18.6 - End stage renal disease; Z99.2 - Dependence on renal dialysis SNOMED: 769257154 (5) Diabetes ICD Codes: E11.9 - Type 2 diabetes mellitus without complications SNOMED: 34738340 (6) vascular dementia Assessment/Plan: glucose values are stable w/o hypoglycemia no need for diabetic medications continue to monitor glucose hypoglycemia protocol in order Subjective ROS Limited/Unobtainable: Yes Allergies: Coded Allergies: No Known Allergies (Unverified , 05/25/13) Subjective events noted glucose values are stable he is on BiPAP Item Value Date Time Bedside Blood Glucose 139 mg/dl H 03/20/19 0600 Bedside Blood Glucose 141 mg/dl H 03/20/19 0000 Bedside Blood Glucose 134 mg/dl H 03/19/19 1716 Bedside Blood Glucose 96 mg/dl 03/19/19 1200 Bedside Blood Glucose 119 mg/dl 03/19/19 0600 Objective Last 24 Hour Vital Signs Date Time Temp Pulse Resp B/P (MAP) Pulse Ox O2 Delivery O2 Flow Rate FiO2 03/20/19 04:00 14.0 55 03/20/19 04:00 97.5 68 20 123/50 (74) 100 03/20/19 04:00 Bi-pap 03/20/19 03:29 70 03/20/19 00:00 97.7 65 25 110/50 (70) 95 03/20/19 00:00 Bi-pap 03/19/19 23:30 63 03/19/19 22:48 78 25 95 Facial 30 03/19/19 21:08 85 28 95 Full Face 30 03/19/19 20:00 30 03/19/19 20:00 Bi-pap 03/19/19 20:00 97.6 71 25 128/72 (90) 96 03/19/19 19:35 98 Bi-Pap 30 03/19/19 19:29 71 27 98 Full Face 30 03/19/19 19:04 72 03/19/19 16:45 75 26 98 Facial 30 03/19/19 16:00 Bi-pap 03/19/19 16:00 97.8 75 26 130/50 (76) 99 03/19/19 16:00 71 03/19/19 16:00 50 03/19/19 15:15 121/51 03/19/19 15:09 74 24 100 Facial 50 03/19/19 13:18 72 27 92 Facial 70 75 25 96 Bi-Pap 70 03/19/19 12:00 72 03/19/19 12:00 98.1 69 26 104/52 (69) 96 03/19/19 12:00 14.0 55 03/19/19 12:00 Bi-pap 03/19/19 09:19 66 23 100 Facial 40 03/19/19 08:00 70 03/19/19 08:00 98.1 70 26 120/48 (72) 98 03/19/19 08:00 35 03/19/19 08:00 Bi-pap Intake and Output 03/19/19 03/20/19 19:00 07:00 Intake Total 3030 ml 414.5 ml Balance 3030 ml 414.5 ml IV Total 30 ml 414.5 ml Hemodialysis 3000 ml Height (Feet): 5 Height (Inches): 5.00 Weight (Pounds): 131 General Appearance: lethargic Neck: normal alignment Cardiovascular: normal rate Respiratory/Chest: decreased breath sounds Abdomen: normal bowel sounds Objective Current Medications Medications (Trade) Dose Ordered Sig/Stephany Route PRN Reason Start Time Stop Time Status Last Admin Dose Admin Acetaminophen (Tylenol) 650 mg Q6H PRN ORAL Mild Pain/Temp > 100.5 03/09/19 07:01 04/07/19 07:00 03/10/19 03:10 Aspirin (ASA) 81 mg DAILY NG 03/16/19 09:00 04/07/19 08:59 03/16/19 08:19 Atorvastatin Calcium (Lipitor) 20 mg BEDTIME NG 03/15/19 21:00 04/07/19 20:59 03/15/19 21:04 Carvedilol (Coreg) 3.125 mg EVERY 12 HOURS NG 03/15/19 21:00 04/09/19 20:59 03/16/19 08:19 Cefepime HCl 500 mg/Dextrose 55 ml @ 110 mls/hr Q24H IV 03/19/19 21:00 03/26/19 20:59 03/19/19 20:31 Clonidine HCl (Catapres Tab) 0.1 mg Q8H PRN SL For High Blood Pressure 03/11/19 20:00 04/10/19 19:59 Dextrose 1,000 ml @ 30 mls/hr Q24H IV 03/09/19 14:07 04/08/19 14:06 03/19/19 22:40 Dextrose (Dextrose 50%) 25 ml Q30M PRN IV Hypoglycemia 03/09/19 07:00 04/07/19 06:59 Dextrose (Dextrose 50%) 50 ml Q30M PRN IV Hypoglycemia 03/09/19 07:00 04/07/19 06:59 Docusate Sodium (Colace) 100 mg THREE TIMES A DAY NG 03/15/19 18:00 04/14/19 17:59 03/16/19 17:26 Epoetin Best (Epoetin Best(ESRD on dialysis)) 3,000 unit SUN-SUN-SUN SUBQ 03/17/19 21:00 04/16/19 20:59 03/19/19 20:31 Epoetin Best (Epoetin Best(ESRD on dialysis)) 4,000 unit SUN- SUBQ 03/17/19 21:00 04/16/19 20:59 03/19/19 20:31 Finasteride (Proscar) 5 mg DAILY ORAL 03/16/19 09:00 04/07/19 08:59 03/16/19 08:11 Fluticasone Propionate (Flonase) 2 spray DAILY NASAL 03/09/19 09:00 04/07/19 08:59 03/17/19 08:42 Guaifenesin/ Codeine Phosphate (Robitussin with codeine) 5 ml Q4H PRN ORAL For Cough 03/09/19 07:00 04/07/19 06:59 03/10/19 03:09 Hydralazine HCl (Apresoline) 25 mg Q4H PRN NG bp over 160 syst 03/15/19 19:03 04/07/19 07:02 Nitroglycerin (Ntg) 1 patch Q24H TDERMAL 03/09/19 14:30 04/08/19 14:29 03/19/19 15:15 Ondansetron HCl (Zofran) 4 mg Q4H PRN IVP Nausea & Vomiting 03/09/19 07:03 04/08/19 07:02 03/10/19 03:09 Pantoprazole (Protonix) 40 mg EVERY 12 HOURS IVP 03/18/19 21:00 04/14/19 17:59 03/19/19 20:33 Risperidone (RisperDAL) 1 mg BEDTIME NG 03/15/19 21:00 04/11/19 20:59 03/15/19 21:04 Sevelamer Carbonate (Renvela) 1,600 mg THREE TIMES A DAY NG 03/15/19 18:00 04/14/19 17:59 03/16/19 17:26 Tamsulosin HCl (Flomax) 0.4 mg BEDTIME ORAL 03/09/19 21:00 04/07/19 20:59 03/15/19 21:04 Vitamin D (Vitamin D) 1,000 intlu DAILY ORAL 03/16/19 09:00 04/15/19 08:59 03/16/19 08:10 Shawn Saldana MD Mar 20, 2019 07:30
--- NOTE | 2019-03-20 07:40 | NUR ---
HAND-OFF: Report given to MARIELA Iyer. Pt in stable condition.
--- NOTE | 2019-03-20 07:55 | Hematology/Onc Progress Note ---
Assessment/Plan Assessment/Plan Assessment and Recs: # Thrombocytopenia -- i have seen him in the past and reviewed platelet trend for the past 1-2 years and this is at an all time low, likely related to infection/reactive process --> plt trend 115-->87-->7-->58-->55-->75-->86 --> smear has been reviewed --> meds are noted --> dw pcp, will HOLD OFF ELIQUIS FOR NOW given also low H/H --> IF THE PLATELET COUNT STABilizes, consider to restart eliquis # Anemia due to chronic disease -- hgb trending at 9-11 --> consider anemia panel, reviewed from prior admission --> does not require iron at this time --> hold off on iron --> hgb trend 10.7-->10-->8.1-->8.6-->8.1 --> EPOGEN HAS BEEN STARTED # Secondary hypercoagulable disorder, no afib, but has pvd and stroke ppx --> HOLD ELIQUIS --> continue if plt >50k and h/h stable # ESRD (end stage renal disease) --> as per Neprho --> TTF --> reviewed Dr. Brandt recs # Hypotension --> fluids as needed # RLL on cxr --> on broad spectrum abx --> as per id # Diabetes --> a1c goal <8, iss, accuchecks # NSTEMI with elev trop may be due to esrd --> as per cards management, asa bb, lipitor # Dysphagia. Family refused PEG --> hold off peg # Respiratory failure on BIPAP. DNR now # Dvt ppx scds Appreciate consultation and enrique RN Subjective Allergies: Coded Allergies: No Known Allergies (Unverified , 05/25/13) Subjective 03/18/19: remains confused, nonverbal, labs reviewed, meds noted 03/19: no plan for peg, code status unchanged, poor prognosis, labs noted, seen by psych 03/20: awake, no acute events, bipap, cefe, epogen Objective Objective Current Medications Medications (Trade) Dose Ordered Sig/Stephany Route PRN Reason Start Time Stop Time Status Last Admin Dose Admin Acetaminophen (Tylenol) 650 mg Q6H PRN ORAL Mild Pain/Temp > 100.5 03/09/19 07:01 04/07/19 07:00 03/10/19 03:10 Aspirin (ASA) 81 mg DAILY NG 03/16/19 09:00 04/07/19 08:59 03/16/19 08:19 Atorvastatin Calcium (Lipitor) 20 mg BEDTIME NG 03/15/19 21:00 04/07/19 20:59 03/15/19 21:04 Carvedilol (Coreg) 3.125 mg EVERY 12 HOURS NG 03/15/19 21:00 04/09/19 20:59 03/16/19 08:19 Cefepime HCl 500 mg/Dextrose 55 ml @ 110 mls/hr Q24H IV 03/19/19 21:00 03/26/19 20:59 03/19/19 20:31 Clonidine HCl (Catapres Tab) 0.1 mg Q8H PRN SL For High Blood Pressure 03/11/19 20:00 04/10/19 19:59 Dextrose 1,000 ml @ 30 mls/hr Q24H IV 03/09/19 14:07 04/08/19 14:06 03/19/19 22:40 Dextrose (Dextrose 50%) 25 ml Q30M PRN IV Hypoglycemia 03/09/19 07:00 04/07/19 06:59 Dextrose (Dextrose 50%) 50 ml Q30M PRN IV Hypoglycemia 03/09/19 07:00 04/07/19 06:59 Docusate Sodium (Colace) 100 mg THREE TIMES A DAY NG 03/15/19 18:00 04/14/19 17:59 03/16/19 17:26 Epoetin Best (Epoetin Best(ESRD on dialysis)) 3,000 unit SUN-SUN-SUN SUBQ 03/17/19 21:00 04/16/19 20:59 03/19/19 20:31 Epoetin Best (Epoetin Best(ESRD on dialysis)) 4,000 unit SUN-SUN-SUN SUBQ 03/17/19 21:00 04/16/19 20:59 03/19/19 20:31 Finasteride (Proscar) 5 mg DAILY ORAL 03/16/19 09:00 04/07/19 08:59 03/16/19 08:11 Fluticasone Propionate (Flonase) 2 spray DAILY NASAL 03/09/19 09:00 04/07/19 08:59 03/17/19 08:42 Guaifenesin/ Codeine Phosphate (Robitussin with codeine) 5 ml Q4H PRN ORAL For Cough 03/09/19 07:00 04/07/19 06:59 03/10/19 03:09 Hydralazine HCl (Apresoline) 25 mg Q4H PRN NG bp over 160 syst 03/15/19 19:03 04/07/19 07:02 Nitroglycerin (Ntg) 1 patch Q24H TDERMAL 03/09/19 14:30 04/08/19 14:29 03/19/19 15:15 Ondansetron HCl (Zofran) 4 mg Q4H PRN IVP Nausea & Vomiting 03/09/19 07:03 04/08/19 07:02 03/10/19 03:09 Pantoprazole (Protonix) 40 mg EVERY 12 HOURS IVP 03/18/19 21:00 04/14/19 17:59 03/19/19 20:33 Risperidone (RisperDAL) 1 mg BEDTIME NG 03/15/19 21:00 04/11/19 20:59 03/15/19 21:04 Sevelamer Carbonate (Renvela) 1,600 mg THREE TIMES A DAY NG 03/15/19 18:00 04/14/19 17:59 03/16/19 17:26 Tamsulosin HCl (Flomax) 0.4 mg BEDTIME ORAL 03/09/19 21:00 04/07/19 20:59 03/15/19 21:04 Vitamin D (Vitamin D) 1,000 intlu DAILY ORAL 03/16/19 09:00 04/15/19 08:59 03/16/19 08:10 Last 24 Hour Vital Signs Date Time Temp Pulse Resp B/P (MAP) Pulse Ox O2 Delivery O2 Flow Rate FiO2 03/20/19 04:00 14.0 55 03/20/19 04:00 97.5 68 20 123/50 (74) 100 03/20/19 04:00 Bi-pap 03/20/19 03:29 70 03/20/19 00:00 97.7 65 25 110/50 (70) 95 03/20/19 00:00 Bi-pap 03/19/19 23:30 63 03/19/19 22:48 78 25 95 Facial 30 03/19/19 21:08 85 28 95 Full Face 30 03/19/19 20:00 30 03/19/19 20:00 Bi-pap 03/19/19 20:00 97.6 71 25 128/72 (90) 96 03/19/19 19:35 98 Bi-Pap 30 03/19/19 19:29 71 27 98 Full Face 30 03/19/19 19:04 72 03/19/19 16:45 75 26 98 Facial 30 03/19/19 16:00 Bi-pap 03/19/19 16:00 97.8 75 26 130/50 (76) 99 03/19/19 16:00 71 03/19/19 16:00 50 03/19/19 15:15 121/51 03/19/19 15:09 74 24 100 Facial 50 03/19/19 13:18 72 27 92 Facial 70 75 25 96 Bi-Pap 70 03/19/19 12:00 72 03/19/19 12:00 98.1 69 26 104/52 (69) 96 03/19/19 12:00 14.0 55 03/19/19 12:00 Bi-pap 03/19/19 09:19 66 23 100 Facial 40 03/19/19 08:00 70 03/19/19 08:00 98.1 70 26 120/48 (72) 98 03/19/19 08:00 35 03/19/19 08:00 Bi-pap 03/19/19 07:09 69 23 100 Facial 40 70 20 100 Bi-Pap 40 03/19/19 07:09 100 Bi-Pap 03/19/19 05:42 65 30 100 Facial 40 03/19/19 04:00 66 03/19/19 03:56 98.6 66 27 109/80 (90) 91 03/19/19 03:52 35 03/19/19 03:52 Bi-pap 03/19/19 03:11 65 26 100 Facial 40 03/19/19 01:18 67 25 98 Facial 40 70 26 100 Bi-Pap 40 03/19/19 00:00 67 03/19/19 00:00 Bi-pap 03/19/19 00:00 97.0 70 27 131/60 (83) 91 03/18/19 23:05 67 25 100 Facial 40 03/18/19 21:26 72 26 98 Facial 40 03/18/19 20:00 Bi-pap 03/18/19 20:00 70 03/18/19 20:00 98.0 71 30 111/44 (66) 99 03/18/19 20:00 35 03/18/19 18:57 71 20 99 Facial 40 72 22 100 Bi-Pap 40 03/18/19 18:56 99 Bi-Pap 40 03/18/19 16:39 72 29 96 Full Face 40 03/18/19 16:00 97.0 71 31 108/33 (58) 91 03/18/19 16:00 Bi-pap 03/18/19 16:00 35 03/18/19 15:33 71 30 99 Facial 40 03/18/19 15:25 70 03/18/19 14:45 90/42 03/18/19 13:52 68 31 97 Facial 40 69 28 99 Bi-Pap 40 03/18/19 12:03 70 03/18/19 12:00 97.0 72 31 90/42 (58) 91 03/18/19 12:00 35 03/18/19 12:00 Bi-pap 03/18/19 09:32 70 38 91 Facial 35 03/18/19 08:00 35 03/18/19 08:00 Bi-pap 03/18/19 08:00 96.5 74 34 105/65 (78) 90 Intake and Output 03/19/19 03/20/19 18:59 06:59 Intake Total 3000 ml 414.5 ml Balance 3000 ml 414.5 ml IV Total 414.5 ml Hemodialysis 3000 ml Labs Test 03/17/19 16:13 03/17/19 17:55 03/17/19 19:15 03/18/19 04:00 Arterial Blood pH 7.440 (7.350-7.450) Arterial Blood Partial Pressure CO2 51.0 mmHg (35.0-45.0) Arterial Blood Partial Pressure O2 < 45.3 mmHg (75.0-100.0) Arterial Blood HCO3 33.9 mmol/L (22.0-26.0) Arterial Blood Oxygen Saturation 50.9 % (95-100) Arterial Blood Base Excess 8.6 (-2-2) Wyatt Test Positive White Blood Count 9.2 K/UL (4.8-10.8) 8.1 K/UL (4.8-10.8) Red Blood Count 2.69 M/UL (4.70-6.10) 2.75 M/UL (4.70-6.10) Hemoglobin 8.6 G/DL (14.2-18.0) 8.6 G/DL (14.2-18.0) Hematocrit 26.4 % (42.0-52.0) 27.2 % (42.0-52.0) Mean Corpuscular Volume 98 FL (80-99) 99 FL (80-99) Mean Corpuscular Hemoglobin 31.8 PG (27.0-31.0) 31.3 PG (27.0-31.0) Mean Corpuscular Hemoglobin Concent 32.3 G/DL (32.0-36.0) 31.7 G/DL (32.0-36.0) Red Cell Distribution Width 15.0 % (11.6-14.8) 15.2 % (11.6-14.8) Platelet Count 75 K/UL (150-450) 78 K/UL (150-450) Mean Platelet Volume 9.3 FL (6.5-10.1) 8.0 FL (6.5-10.1) Neutrophils (%) (Auto) 87.5 % (45.0-75.0) % (45.0-75.0) Lymphocytes (%) (Auto) 5.7 % (20.0-45.0) % (20.0-45.0) Monocytes (%) (Auto) 5.8 % (1.0-10.0) % (1.0-10.0) Eosinophils (%) (Auto) 0.6 % (0.0-3.0) % (0.0-3.0) Basophils (%) (Auto) 0.4 % (0.0-2.0) % (0.0-2.0) Prostate Specific Antigen 9.09 ng/mL (0.13-4.0) Prothrombin Time 11.4 SEC (9.30-11.50) Prothromb Time International Ratio 1.1 (0.9-1.1) Differential Total Cells Counted 100 Neutrophils % (Manual) 85 % (45-75) Lymphocytes % (Manual) 6 % (20-45) Monocytes % (Manual) 8 % (1-10) Eosinophils % (Manual) 0 % (0-3) Basophils % (Manual) 1 % (0-2) Band Neutrophils 0 % (0-8) Platelet Estimate Decreased Platelet Morphology Normal Sodium Level 143 MMOL/L (136-145) Potassium Level 3.5 MMOL/L (3.5-5.1) Chloride Level 101 MMOL/L (98-107) Carbon Dioxide Level 32 MMOL/L (21-32) Anion Gap 10 mmol/L (5-15) Blood Urea Nitrogen 36 mg/dL (7-18) Creatinine 5.0 MG/DL (0.55-1.30) Estimat Glomerular Filtration Rate mL/min (>60) Glucose Level 204 MG/DL (74-106) Calcium Level 8.4 MG/DL (8.5-10.1) Test 03/19/19 03:45 White Blood Count 10.3 K/UL (4.8-10.8) Red Blood Count 2.56 M/UL (4.70-6.10) Hemoglobin 8.1 G/DL (14.2-18.0) Hematocrit 25.0 % (42.0-52.0) Mean Corpuscular Volume 98 FL (80-99) Mean Corpuscular Hemoglobin 31.6 PG (27.0-31.0) Mean Corpuscular Hemoglobin Concent 32.4 G/DL (32.0-36.0) Red Cell Distribution Width 14.7 % (11.6-14.8) Platelet Count 86 K/UL (150-450) Mean Platelet Volume 7.6 FL (6.5-10.1) Neutrophils (%) (Auto) % (45.0-75.0) Lymphocytes (%) (Auto) % (20.0-45.0) Monocytes (%) (Auto) % (1.0-10.0) Eosinophils (%) (Auto) % (0.0-3.0) Basophils (%) (Auto) % (0.0-2.0) Sodium Level 143 MMOL/L (136-145) Potassium Level 4.0 MMOL/L (3.5-5.1) Chloride Level 103 MMOL/L (98-107) Carbon Dioxide Level 33 MMOL/L (21-32) Anion Gap 7 mmol/L (5-15) Blood Urea Nitrogen 52 mg/dL (7-18) Creatinine 6.5 MG/DL (0.55-1.30) Estimat Glomerular Filtration Rate mL/min (>60) Glucose Level 141 MG/DL (74-106) Uric Acid 7.0 MG/DL (2.6-7.2) Calcium Level 8.2 MG/DL (8.5-10.1) Phosphorus Level 2.7 MG/DL (2.5-4.9) Magnesium Level 2.3 MG/DL (1.8-2.4) Total Bilirubin 0.8 MG/DL (0.2-1.0) Aspartate Amino Transf (AST/SGOT) 28 U/L (15-37) Alanine Aminotransferase (ALT/SGPT) 18 U/L (12-78) Alkaline Phosphatase 134 U/L (46-116) Troponin I 0.308 ng/mL (0.000-0.056) C-Reactive Protein, Quantitative 28.4 mg/dL (0.00-0.90) Total Protein 6.5 G/DL (6.4-8.2) Albumin 1.9 G/DL (3.4-5.0) Globulin 4.6 g/dL Albumin/Globulin Ratio 0.4 (1.0-2.7) Height (Feet): 5 Height (Inches): 5.00 Weight (Pounds): 131 Objective Vitals: reviewed, normal Gen: no apparent distress, alert, GCS 15, non-toxic HEENT: normocephalic, atraumatic Resp: chest non-tender, lungs clear, normal Bss, BIPAP++ CV: rrr, no edema, no gallop, no JVD, no murmur Gastrointestinal: normal bowel sounds, non tender, soft, non-distended Msk: normal range of motion, non-tender, calf tenderness, + AV access LUE + thrill + bruit Neurologic: alert, oriented x3, responsive Psychiatric: judgement/insight normal, memory normal, depressed affect Reflexes: 3+ knee (L), 3+ ankle (R) Skin: normal color, no rash, warm/dry, well hydrated Lymphatic: no trip Gigi Aguirre MD Mar 20, 2019 07:55
[2019-03-20 08:00] VITALS: BP 123/50
--- NOTE | 2019-03-20 08:54 | Infectious Diseases Prog Note ---
Assessment/Plan Assessment/Plan IMPRESSION: 1. Leukocytosis, resolved 2. Lactic acidosis. 3.Doubt sepsis 4. Eyy-YD-hel[place]h [place]. 5. End-stage renal disease, on hemodialysis. 6. Diabetes mellitus, type 2. 7. Hypertension. 8. BPH. 9. Systolic CHF with ejection fraction of 40%. 10. Dysphagia 11. Hypoxemia 12. Pulmonary edema versus pneumonia 13. Anemia 14. Thrombocytopenia RECOMMENDATIONS: Continue Cefepime X 2 days DNR, DNI on palliative care Subjective ROS Limited/Unobtainable: Yes Constitutional: Denies: fever Allergies: Coded Allergies: No Known Allergies (Unverified , 05/25/13) Objective Vital Signs Last 24 Hour Vital Signs Date Time Temp Pulse Resp B/P (MAP) Pulse Ox O2 Delivery O2 Flow Rate FiO2 03/20/19 08:25 83 24 92 Full Face 65 03/20/19 07:56 97 Venturi Mask 15.0 55 03/20/19 04:00 14.0 55 03/20/19 04:00 97.5 68 20 123/50 (74) 100 03/20/19 04:00 Bi-pap 03/20/19 03:29 70 03/20/19 00:00 97.7 65 25 110/50 (70) 95 03/20/19 00:00 Bi-pap 03/19/19 23:30 63 03/19/19 22:48 78 25 95 Facial 30 03/19/19 21:08 85 28 95 Full Face 30 03/19/19 20:00 30 03/19/19 20:00 Bi-pap 03/19/19 20:00 97.6 71 25 128/72 (90) 96 03/19/19 19:35 98 Bi-Pap 30 03/19/19 19:29 71 27 98 Full Face 30 03/19/19 19:04 72 03/19/19 16:45 75 26 98 Facial 30 03/19/19 16:00 Bi-pap 03/19/19 16:00 97.8 75 26 130/50 (76) 99 03/19/19 16:00 71 03/19/19 16:00 50 03/19/19 15:15 121/51 03/19/19 15:09 74 24 100 Facial 50 03/19/19 13:18 72 27 92 Facial 70 75 25 96 Bi-Pap 70 03/19/19 12:00 72 1/22/20 12:00 98.1 69 26 104/52 (69) 96 03/19/19 12:00 14.0 55 03/19/19 12:00 Bi-pap 03/19/19 09:19 66 23 100 Facial 40 Height (Feet): 5 Height (Inches): 5.00 Weight (Pounds): 131 HEENT: mucous membranes moist Respiratory/Chest: decreased breath sounds, other - on BIPAP Cardiovascular: normal rate Abdomen: soft, non tender Extremities: no edema Neurologic/Psychiatric: other - lethargic Current Medications Medications (Trade) Dose Ordered Sig/Stephany Route PRN Reason Start Time Stop Time Status Last Admin Dose Admin Acetaminophen (Tylenol) 650 mg Q6H PRN ORAL Mild Pain/Temp > 100.5 03/09/19 07:01 04/07/19 07:00 03/10/19 03:10 Aspirin (ASA) 81 mg DAILY NG 03/16/19 09:00 04/07/19 08:59 03/16/19 08:19 Atorvastatin Calcium (Lipitor) 20 mg BEDTIME NG 03/15/19 21:00 04/07/19 20:59 03/15/19 21:04 Carvedilol (Coreg) 3.125 mg EVERY 12 HOURS NG 03/15/19 21:00 04/09/19 20:59 03/16/19 08:19 Cefepime HCl 500 mg/Dextrose 55 ml @ 110 mls/hr Q24H IV 03/19/19 21:00 03/26/19 20:59 03/19/19 20:31 Clonidine HCl (Catapres Tab) 0.1 mg Q8H PRN SL For High Blood Pressure 03/11/19 20:00 04/10/19 19:59 Dextrose 1,000 ml @ 30 mls/hr Q24H IV 03/09/19 14:07 04/08/19 14:06 03/19/19 22:40 Dextrose (Dextrose 50%) 25 ml Q30M PRN IV Hypoglycemia 03/09/19 07:00 04/07/19 06:59 Dextrose (Dextrose 50%) 50 ml Q30M PRN IV Hypoglycemia 03/09/19 07:00 04/07/19 06:59 Docusate Sodium (Colace) 100 mg THREE TIMES A DAY NG 03/15/19 18:00 04/14/19 17:59 03/16/19 17:26 Epoetin Best (Epoetin Best(ESRD on dialysis)) 3,000 unit SUBQ 03/17/19 21:00 04/16/19 20:59 03/19/19 20:31 Epoetin Best (Epoetin Best(ESRD on dialysis)) 4,000 unit SUBQ 03/17/19 21:00 04/16/19 20:59 03/19/19 20:31 Finasteride (Proscar) 5 mg DAILY ORAL 03/16/19 09:00 04/07/19 08:59 03/16/19 08:11 Fluticasone Propionate (Flonase) 2 spray DAILY NASAL 03/09/19 09:00 04/07/19 08:59 03/17/19 08:42 Guaifenesin/ Codeine Phosphate (Robitussin with codeine) 5 ml Q4H PRN ORAL For Cough 03/09/19 07:00 04/07/19 06:59 03/10/19 03:09 Hydralazine HCl (Apresoline) 25 mg Q4H PRN NG bp over 160 syst 03/15/19 19:03 04/07/19 07:02 Nitroglycerin (Ntg) 1 patch Q24H TDERMAL 03/09/19 14:30 04/08/19 14:29 03/19/19 15:15 Ondansetron HCl (Zofran) 4 mg Q4H PRN IVP Nausea & Vomiting 03/09/19 07:03 04/08/19 07:02 03/10/19 03:09 Pantoprazole (Protonix) 40 mg EVERY 12 HOURS IVP 03/18/19 21:00 04/14/19 17:59 03/19/19 20:33 Risperidone (RisperDAL) 1 mg BEDTIME NG 03/15/19 21:00 04/11/19 20:59 03/15/19 21:04 Sevelamer Carbonate (Renvela) 1,600 mg THREE TIMES A DAY NG 03/15/19 18:00 04/14/19 17:59 03/16/19 17:26 Tamsulosin HCl (Flomax) 0.4 mg BEDTIME ORAL 03/09/19 21:00 04/07/19 20:59 03/15/19 21:04 Vitamin D (Vitamin D) 1,000 intlu DAILY ORAL 03/16/19 09:00 04/15/19 08:59 03/16/19 08:10 Boyd Tee MD Mar 20, 2019 08:54
[2019-03-20] MEDS: Renvela 800mg Pkt NG SCH ×3 (09:00→17:32)
[2019-03-20] MEDS: Docusate 100mg/10ml Liq NG SCH ×3 (09:00→17:31)
[2019-03-20] MEDS: Vitamin D 1000 IU Tab ORAL SCH (09:00)
[2019-03-20] MEDS: Flonase Nasal Inhaler 16gm NASAL SCH (09:00)
[2019-03-20] MEDS: Aspirin Baby 81mg NG SCH (09:00)
--- NOTE | 2019-03-20 09:00 | NUR ---
NURSE NOTES: Pt switched to Bipap 15/5 FIO2 30%,pt was desaturating on the 70's on Venturi mask.
[2019-03-20] MEDS: Pantoprazole Inj IVP SCH ×2 (09:48→21:15)
--- NOTE | 2019-03-20 10:33 | Nephrology Progress Note ---
Assessment/Plan Problem List: (1) ESRD (end stage renal disease) on dialysis (2) Cardiomyopathy (3) NSTEMI (non-ST elevated myocardial infarction) Assessment: Troponin lowering (4) Acute respiratory failure with hypoxia and hypercapnia Assessment ESRD- HTN Anemia DM CAD- Cardiomyopathy s/p SEPSIS AR Plan recent 2D echo 40% EjFx Pulm Toilet and support HD 03/19 next 03/21 Keep BP in check - Hold bp meds for now due to low BP Albumin bolus ASA Nitrate per consultants per orders ? need for PEG as NGt always pulled out ? discussed with Dr Cornelius and Estelita Subjective ROS Limited/Unobtainable: No Constitutional: Reports: malaise, weakness Objective Objective Last 24 Hour Vital Signs Date Time Temp Pulse Resp B/P (MAP) Pulse Ox O2 Delivery O2 Flow Rate FiO2 03/20/19 09:00 83 123/50 03/20/19 08:25 83 24 92 Full Face 65 03/20/19 07:56 97 Venturi Mask 15.0 55 03/20/19 04:00 14.0 55 03/20/19 04:00 97.5 68 20 123/50 (74) 100 03/20/19 04:00 Bi-pap 03/20/19 03:29 70 03/20/19 00:00 97.7 65 25 110/50 (70) 95 03/20/19 00:00 Bi-pap 03/19/19 23:30 63 03/19/19 22:48 78 25 95 Facial 30 03/19/19 21:08 85 28 95 Full Face 30 03/19/19 20:00 30 03/19/19 20:00 Bi-pap 03/19/19 20:00 97.6 71 25 128/72 (90) 96 03/19/19 19:35 98 Bi-Pap 30 03/19/19 19:29 71 27 98 Full Face 30 03/19/19 19:04 72 03/19/19 16:45 75 26 98 Facial 30 03/19/19 16:00 Bi-pap 03/19/19 16:00 97.8 75 26 130/50 (76) 99 03/19/19 16:00 71 03/19/19 16:00 50 03/19/19 15:15 121/51 03/19/19 15:09 74 24 100 Facial 50 03/19/19 13:18 72 27 92 Facial 70 75 25 96 Bi-Pap 70 03/19/19 12:00 72 03/19/19 12:00 98.1 69 26 104/52 (69) 96 03/19/19 12:00 14.0 55 03/19/19 12:00 Bi-pap Intake and Output 03/19/19 03/20/19 19:00 07:00 Intake Total 3030 ml 414.5 ml Balance 3030 ml 414.5 ml IV Total 30 ml 414.5 ml Hemodialysis 3000 ml Height (Feet): 5 Height (Inches): 5.00 Weight (Pounds): 131 General Appearance: mild distress EENT: other - BIPAP Cardiovascular: normal rate Respiratory/Chest: decreased breath sounds Abdomen: distended Objective no change Mikey Brandt MD Mar 20, 2019 10:33
--- NOTE | 2019-03-20 10:55 | Cardiac Electrophysiology PN ---
Assessment/Plan Assessment/Plan 1. Troponin elevation due to renal failure. Troponin peak is 3.5 that is coming down to 1.88. Confused in restraints. No CP or SOB. EKG no acute changes. EF 40-45% On aspirin, Coreg 3.125 bid and Lipitor. Treat medically 2. Cardiomyopathy with EF of 40%. BNP is more than 35,000. Echo on 02/02/2019 showed EF of 55% to 60%, repeat echocardiogram showed EF 40%. On Coreg, Lisinopril 10 daily and HD 3. On Eliquis for CVA and PVD. No Fib or DVT or PE 4. End-stage renal disease, on hemodialysis. 5. Lactic acidosis. 6. Hyperlipidemia, on Lipitor. 7. Dysphagia. Family refused PEG 8. Respiratory failure on BIPAP. SEB RN Subjective Subjective On BIPAP. No events. RN at bedside Objective Last 24 Hour Vital Signs Date Time Temp Pulse Resp B/P (MAP) Pulse Ox O2 Delivery O2 Flow Rate FiO2 03/20/19 09:00 83 123/50 03/20/19 08:25 83 24 92 Full Face 65 03/20/19 07:56 97 Venturi Mask 15.0 55 03/20/19 04:00 14.0 55 03/20/19 04:00 97.5 68 20 123/50 (74) 100 03/20/19 04:00 Bi-pap 03/20/19 03:29 70 03/20/19 00:00 97.7 65 25 110/50 (70) 95 03/20/19 00:00 Bi-pap 03/19/19 23:30 63 03/19/19 22:48 78 25 95 Facial 30 03/19/19 21:08 85 28 95 Full Face 30 03/19/19 20:00 30 03/19/19 20:00 Bi-pap 03/19/19 20:00 97.6 71 25 128/72 (90) 96 03/19/19 19:35 98 Bi-Pap 30 03/19/19 19:29 71 27 98 Full Face 30 03/19/19 19:04 72 03/19/19 16:45 75 26 98 Facial 30 03/19/19 16:00 Bi-pap 03/19/19 16:00 97.8 75 26 130/50 (76) 99 03/19/19 16:00 71 03/19/19 16:00 50 03/19/19 15:15 121/51 03/19/19 15:09 74 24 100 Facial 50 03/19/19 13:18 72 27 92 Facial 70 75 25 96 Bi-Pap 70 03/19/19 12:00 72 03/19/19 12:00 98.1 69 26 104/52 (69) 96 03/19/19 12:00 14.0 55 03/19/19 12:00 Bi-pap Intake and Output 03/19/19 03/20/19 19:00 07:00 Intake Total 3030 ml 414.5 ml Balance 3030 ml 414.5 ml IV Total 30 ml 414.5 ml Hemodialysis 3000 ml Objective HEAD AND NECK: No JVD.BIPAP on LUNGS: Clear. CARDIOVASCULAR: Regular S1 and S2 with no gallop or murmur. ABDOMEN: Soft. EXTREMITIES: No pitting edema. Dialysis access in the left arm. Dariel Corcoran MD Mar 20, 2019 10:54
--- NOTE | 2019-03-20 11:08 | NUR ---
PT NOTE Attempted to see patient for PT treatment. Patient currently lethargic, on Bipap, unable to participate with PT at this time. Melissa SIERRA notified.
[2019-03-20 12:00] VITALS: BP 127/44
--- NOTE | 2019-03-20 14:12 | NUR ---
NURSE NOTES: Pt stable no further restlessness noted,sleeping quietly in bed.
[2019-03-20] MEDS ORDERED: Albuterol/Ipratropium 3ml neb HHN PRN (15:15)
--- NOTE | 2019-03-20 15:16 | Pulmonology Progress Note ---
Assessment/Plan Problems: (1) NSTEMI (non-ST elevated myocardial infarction) (2) ESRD (end stage renal disease) on dialysis (3) Cardiomyopathy (4) HTN (hypertension) (5) HLD (hyperlipidemia) (6) CVA (cerebral vascular accident) Assessment/Plan ASSESSMENT: The patient is an 83-year-old male with a history of prior CVA, end -stage renal disease, on dialysis, hypertension, hyperlipidemia, CAD, CVA, and BPH presenting with dizziness and [id number] NV. He is fairly stable from a respiratory standpoint. PROBLEM LIST: 1. Non ST-elevation myocardial infarction. 2. Recent pneumonia. 3. Dizziness. 4. End-stage renal disease, on dialysis. 5. CAD. 6. Hypertension. 7. Hyperlipidemia. 8. Anemia. 9. Diabetes. TREATMENT PLAN: NO escalation, no ICU transfer Optimize pulmonary hygiene/mobilize as tolerated. Continue BiPAP for now, attempt to wean off Titrate O2 HHN's Abx: Cefepime per ID Follow up Cardiology recommendations, medical management of non-STEMI. AC held 2/2 thrombocytopenia Monitor volumes and renal function, dialysis per Vangie/UF as tolerated DNAR/DNI Subjective Allergies: Coded Allergies: No Known Allergies (Unverified , 05/25/13) Subjective On BiPAP lethargic + cough + SOB Objective Last 24 Hour Vital Signs Date Time Temp Pulse Resp B/P (MAP) Pulse Ox O2 Delivery O2 Flow Rate FiO2 03/20/19 13:06 74 10 95 Full Face 50 03/20/19 12:00 Venturi Mask 03/20/19 12:00 30 03/20/19 12:00 98.1 62 18 127/44 (71) 99 03/20/19 11:46 61 03/20/19 11:09 79 12 96 Full Face 50 03/20/19 09:00 83 123/50 03/20/19 08:25 83 24 92 Full Face 65 03/20/19 08:00 97.9 68 20 123/50 (74) 100 03/20/19 08:00 14.0 55 03/20/19 08:00 67 03/20/19 08:00 Venturi Mask 03/20/19 07:56 97 Venturi Mask 15.0 55 03/20/19 04:00 14.0 55 1/23/20 04:00 97.5 68 20 123/50 (74) 100 03/20/19 04:00 Bi-pap 03/20/19 03:29 70 03/20/19 00:00 97.7 65 25 110/50 (70) 95 03/20/19 00:00 Bi-pap 03/19/19 23:30 63 03/19/19 22:48 78 25 95 Facial 30 03/19/19 21:08 85 28 95 Full Face 30 03/19/19 20:00 30 03/19/19 20:00 Bi-pap 03/19/19 20:00 97.6 71 25 128/72 (90) 96 03/19/19 19:35 98 Bi-Pap 30 03/19/19 19:29 71 27 98 Full Face 30 03/19/19 19:04 72 03/19/19 16:45 75 26 98 Facial 30 03/19/19 16:00 Bi-pap 03/19/19 16:00 97.8 75 26 130/50 (76) 99 03/19/19 16:00 71 03/19/19 16:00 50 03/19/19 15:15 121/51 Intake and Output 03/19/19 03/20/19 19:00 07:00 Intake Total 3030 ml 414.5 ml Balance 3030 ml 414.5 ml IV Total 30 ml 414.5 ml Hemodialysis 3000 ml General Appearance: cachetic - on BiPAP HEENT: normocephalic, atraumatic, anicteric, mucous membranes moist Respiratory/Chest: rhonchi Cardiovascular: normal peripheral pulses, normal rate, regular rhythm Abdomen: normal bowel sounds, soft, non tender, no organomegaly, non distended Extremities: no cyanosis, no clubbing, no edema Microbiology Date/Time Source Procedure Growth Status 03/19/19 19:00 Sputum Induced Gram Stain - Final Resulted 03/19/19 19:00 Sputum Induced Sputum Culture Pending Resulted Current Medications Medications (Trade) Dose Ordered Sig/Stephany Route PRN Reason Start Time Stop Time Status Last Admin Dose Admin Acetaminophen (Tylenol) 650 mg Q6H PRN ORAL Mild Pain/Temp > 100.5 03/09/19 07:01 04/07/19 07:00 03/10/19 03:10 Aspirin (ASA) 81 mg DAILY NG 03/16/19 09:00 04/07/19 08:59 03/16/19 08:19 Atorvastatin Calcium (Lipitor) 20 mg BEDTIME NG 03/15/19 21:00 04/07/19 20:59 03/15/19 21:04 Carvedilol (Coreg) 3.125 mg EVERY 12 HOURS NG 03/15/19 21:00 04/09/19 20:59 03/16/19 08:19 Cefepime HCl 500 mg/Dextrose 55 ml @ 110 mls/hr Q24H IV 03/19/19 21:00 03/26/19 20:59 03/19/19 20:31 Clonidine HCl (Catapres Tab) 0.1 mg Q8H PRN SL For High Blood Pressure 03/11/19 20:00 04/10/19 19:59 Dextrose 1,000 ml @ 30 mls/hr Q24H IV 03/09/19 14:07 04/08/19 14:06 03/19/19 22:40 Dextrose (Dextrose 50%) 25 ml Q30M PRN IV Hypoglycemia 03/09/19 07:00 04/07/19 06:59 Dextrose (Dextrose 50%) 50 ml Q30M PRN IV Hypoglycemia 03/09/19 07:00 04/07/19 06:59 Docusate Sodium (Colace) 100 mg THREE TIMES A DAY NG 03/15/19 18:00 04/14/19 17:59 03/16/19 17:26 Epoetin Best (Epoetin Best(ESRD on dialysis)) 3,000 unit SUBQ 03/17/19 21:00 04/16/19 20:59 03/19/19 20:31 Epoetin Best (Epoetin Best(ESRD on dialysis)) 4,000 unit SUN-SUN-SUN SUBQ 03/17/19 21:00 04/16/19 20:59 03/19/19 20:31 Finasteride (Proscar) 5 mg DAILY ORAL 03/16/19 09:00 04/07/19 08:59 03/16/19 08:11 Fluticasone Propionate (Flonase) 2 spray DAILY NASAL 03/09/19 09:00 04/07/19 08:59 03/17/19 08:42 Guaifenesin/ Codeine Phosphate (Robitussin with codeine) 5 ml Q4H PRN ORAL For Cough 03/09/19 07:00 04/07/19 06:59 03/10/19 03:09 Hydralazine HCl (Apresoline) 25 mg Q4H PRN NG bp over 160 syst 03/15/19 19:03 04/07/19 07:02 Nitroglycerin (Ntg) 1 patch Q24H TDERMAL 03/09/19 14:30 04/08/19 14:29 03/19/19 15:15 Ondansetron HCl (Zofran) 4 mg Q4H PRN IVP Nausea & Vomiting 03/09/19 07:03 04/08/19 07:02 03/10/19 03:09 Pantoprazole (Protonix) 40 mg EVERY 12 HOURS IVP 03/18/19 21:00 04/14/19 17:59 03/20/19 09:48 Risperidone (RisperDAL) 1 mg BEDTIME NG 03/15/19 21:00 04/11/19 20:59 03/15/19 21:04 Sevelamer Carbonate (Renvela) 1,600 mg THREE TIMES A DAY NG 03/15/19 18:00 04/14/19 17:59 03/16/19 17:26 Tamsulosin HCl (Flomax) 0.4 mg BEDTIME ORAL 03/09/19 21:00 04/07/19 20:59 03/15/19 21:04 Vitamin D (Vitamin D) 1,000 intlu DAILY ORAL 03/16/19 09:00 04/15/19 08:59 03/16/19 08:10 Thaddeus Cornelius MD Mar 20, 2019 15:16
[2019-03-20 16:00] VITALS: BP 110/70
[2019-03-20] MEDS: Nitroglycerin Patch 0.4mg TDERMAL SCH (17:31)
--- NOTE | 2019-03-20 19:14 | NUR ---
NURSE NOTES: Pt kept NPO,due medic not given ,no Tube access.
--- NOTE | 2019-03-20 19:16 | NUR ---
HAND-OFF: Written report given to Mouna Barahona RN. Addendum: 03/20/19 at 1927 by JAVIER GRACE RN Written report given to Marisa Madrigal for Mouna Barahona RN.
--- NOTE | 2019-03-20 19:55 | NUR ---
NURSE NOTES: Received report from Charge Nurse Uziel España RN. Pt is in stable condition, BP 119/50, P 59, SR, T 98.2, RR 22, O2 98%, FLACC 0. Pt is on BiPAP 15/5 FiO2 30%. Pt is currently NPO. Bed in lowest position, side rails up x 3, bed alarm armed. No signs or symptoms of pain or distress noted at this time. Will continue to monitor and plan of care.
[2019-03-20 20:00] VITALS: BP 119/50
[2019-03-20] MEDS: Tamsulosin 0.4mg cap ORAL SCH (20:37)
[2019-03-20] MEDS: Atorvastatin 20mg tab NG SCH (20:37)
[2019-03-20] MEDS: Cefepime HCl 500 MG in D5W 55 ML IV SCH (21:12)
--- NOTE | 2019-03-20 21:46 | General Progress Note ---
Assessment/Plan Assessment/Plan: Assessment - Failed swallow, aspiration risk - resp failure - still too high a risk for EGD - NSTEMI - thrombocytopenia - PNA - CAD - ESRD, HD - OBS - Poor prognosis Recommendations - Pulmonary f/u - follow resp parameters closely - no plans for PEG, unless intubated or trach placed - Family discussion Subjective Allergies: Coded Allergies: No Known Allergies (Unverified , 05/25/13) Subjective Above noted on BIPAP non communicative Objective Last 24 Hour Vital Signs Date Time Temp Pulse Resp B/P (MAP) Pulse Ox O2 Delivery O2 Flow Rate FiO2 03/20/19 21:03 59 22 98 Full Face 40 03/20/19 20:36 59 119/50 03/20/19 19:00 60 27 100 Full Face 40 03/20/19 18:59 100 Bi-Pap 40 03/20/19 17:31 110/70 03/20/19 17:15 59 22 96 Full Face 40 03/20/19 16:00 30 03/20/19 16:00 60 03/20/19 16:00 Venturi Mask 03/20/19 16:00 97.0 58 16 110/70 (83) 98 03/20/19 15:47 60 22 100 Full Face 40 03/20/19 13:06 74 10 95 Full Face 50 03/20/19 12:00 Venturi Mask 03/20/19 12:00 30 03/20/19 12:00 98.1 62 18 127/44 (71) 99 03/20/19 11:46 61 03/20/19 11:09 79 12 96 Full Face 50 03/20/19 09:00 83 123/50 03/20/19 08:25 83 24 92 Full Face 65 03/20/19 08:00 97.9 68 20 123/50 (74) 100 03/20/19 08:00 14.0 55 03/20/19 08:00 67 03/20/19 08:00 Venturi Mask 03/20/19 07:56 97 Venturi Mask 15.0 55 03/20/19 04:00 14.0 55 03/20/19 04:00 97.5 68 20 123/50 (74) 100 03/20/19 04:00 Bi-pap 03/20/19 03:29 70 03/20/19 00:00 97.7 65 25 110/50 (70) 95 03/20/19 00:00 Bi-pap 03/19/19 23:30 63 03/19/19 22:48 78 25 95 Facial 30 Intake and Output 03/19/19 03/20/19 19:00 07:00 Intake Total 3030 ml 414.5 ml Balance 3030 ml 414.5 ml IV Total 30 ml 414.5 ml Hemodialysis 3000 ml Height (Feet): 5 Height (Inches): 5.00 Weight (Pounds): 131 Objective Elderly man NCAT supple Coarse ronchi RR Abd soft ND Neuro confused Mann Aguilar MD Mar 20, 2019 21:46
--- NOTE | 2019-03-20 22:55 | General Progress Note ---
Assessment/Plan Assessment/Plan: respiratory failure aspiration risk NSTEMI renal failure diabeters persistent hypoglycemia ho pneumonia ho elevated lactic acid htn hld thrombocytopenia bipap prn aggressive pulmonaryhygiene, followed by Dr Adryan HENRY eval noted , pos aspirate eliquis held heme eval apprecaiated aspiration precutions\pulmonary hygiene echo noted, decreaed EF endo eval appreciated dialysis dependent abx per ID dw Dr Burk, on eliquis due to previous stroke paf hold elliquis due to low platelet dvt and ulcer prophylaxis dw family they dont want aggressive measure want him to be comfortable DNR DNI, they dont want tube feeds no intubation palliative measures Subjective Allergies: Coded Allergies: No Known Allergies (Unverified , 05/25/13) Subjective seen in am patient removed ng tube currently on bipap family have decided no ng or gtube placment and want to pursue palliative measures Objective Last 24 Hour Vital Signs Date Time Temp Pulse Resp B/P (MAP) Pulse Ox O2 Delivery O2 Flow Rate FiO2 03/20/19 21:03 59 22 98 Full Face 40 03/20/19 20:36 59 119/50 03/20/19 19:00 60 27 100 Full Face 40 03/20/19 18:59 100 Bi-Pap 40 03/20/19 17:31 110/70 03/20/19 17:15 59 22 96 Full Face 40 03/20/19 16:00 30 03/20/19 16:00 60 03/20/19 16:00 Venturi Mask 03/20/19 16:00 97.0 58 16 110/70 (83) 98 03/20/19 15:47 60 22 100 Full Face 40 03/20/19 13:06 74 10 95 Full Face 50 03/20/19 12:00 Venturi Mask 03/20/19 12:00 30 03/20/19 12:00 98.1 62 18 127/44 (71) 99 03/20/19 11:46 61 03/20/19 11:09 79 12 96 Full Face 50 03/20/19 09:00 83 123/50 03/20/19 08:25 83 24 92 Full Face 65 03/20/19 08:00 97.9 68 20 123/50 (74) 100 03/20/19 08:00 14.0 55 03/20/19 08:00 67 03/20/19 08:00 Venturi Mask 03/20/19 07:56 97 Venturi Mask 15.0 55 03/20/19 04:00 14.0 55 03/20/19 04:00 97.5 68 20 123/50 (74) 100 03/20/19 04:00 Bi-pap 03/20/19 03:29 70 03/20/19 00:00 97.7 65 25 110/50 (70) 95 03/20/19 00:00 Bi-pap 03/19/19 23:30 63 Intake and Output 03/19/19 03/20/19 19:00 07:00 Intake Total 3030 ml 414.5 ml Balance 3030 ml 414.5 ml IV Total 30 ml 414.5 ml Hemodialysis 3000 ml Height (Feet): 5 Height (Inches): 5.00 Weight (Pounds): 131 General Appearance: lethargic Neck: supple Cardiovascular: normal rate Respiratory/Chest: decreased breath sounds Viktor García MD Mar 20, 2019 22:55
[2019-03-21] VITALS (7 sets, daily range): BP systolic 97–139; BP diastolic 46–78
--- NOTE | 2019-03-21 02:31 | Progress Note ---
DATE: 03/20/2019 SUBJECTIVE: The patient is in bed. Asleep, arousable, confused, less agitated, and more manageable. MENTAL STATUS EXAM: The patient is confused and disoriented. Mood is neutral. Affect is flat. Thought process, there is a paucity of thought content. Thought content, no suicidal or homicidal ideation. ASSESSMENT: Dementia with behavior disturbance. PLAN: 1. Continue current medications. 2. Recommended to discontinue the restraints. Zi Carrera M.D. DR: TASHIA JOB#: [id number] CC:
[2019-03-21 05:16] LABS: MEAN CORPUSCULAR VOLUME 98 FL (80-99); PLATELET COUNT 150 K/UL (150-450); RED BLOOD COUNT 3.17 M/UL (4.70-6.10); RED CELL DISTRIBUTION WIDTH 14.9 % (11.6-14.8); WHITE BLOOD COUNT 10.8 K/UL (4.8-10.8)
[2019-03-21 05:42] LABS: ALANINE AMINOTRANSFERASE 11 U/L (12-78); ALBUMIN 2.1 G/DL (3.4-5.0); ALBUMIN/GLOBULIN RATIO 0.4 (1.0-2.7); ALKALINE PHOSPHATASE 128 U/L (46-116); ANION GAP 9 mmol/L (5-15); ASPARTATE AMINO TRANSFERASE 19 U/L (15-37); BILIRUBIN,TOTAL 0.7 MG/DL (0.2-1.0); BLOOD UREA NITROGEN 44 mg/dL (7-18); CALCIUM 8.3 MG/DL (8.5-10.1); CARBON DIOXIDE 32 MMOL/L (21-32); CHLORIDE 100 MMOL/L (98-107); CREATININE 5.7 MG/DL (0.55-1.30); PHOSPHORUS 3.2 MG/DL (2.5-4.9); POTASSIUM 3.6 MMOL/L (3.5-5.1); SODIUM 141 MMOL/L (136-145)
--- NOTE | 2019-03-21 06:09 | Hematology/Onc Progress Note ---
Assessment/Plan Assessment/Plan Assessment and Recs: # Thrombocytopenia -- i have seen him in the past and reviewed platelet trend for the past 1-2 years and this is at an all time low, likely related to infection/reactive process --> plt trend 115-->87-->7-->58-->55-->75-->86-->150 --> smear has been reviewed --> meds are noted --> dw pcp, will HOLD OFF ELIQUIS FOR NOW given also low H/H --> GIVEN PLATELET COUNT STABilizeD, restart eliquis # Anemia due to chronic disease -- hgb trending at 9-11 --> consider anemia panel, reviewed from prior admission --> does not require iron at this time --> hold off on iron --> hgb trend 10.7-->10-->8.1-->8.6-->8.1-->10 --> EPOGEN HAS BEEN STARTED # Secondary hypercoagulable disorder, no afib, but has pvd and stroke ppx --> HOLD ELIQUIS --> continue if plt >50k and h/h stable # ESRD (end stage renal disease) --> as per Neprho --> TTF --> reviewed Dr. Brandt recs # Hypotension --> fluids as needed # RLL on cxr --> on broad spectrum abx --> as per id # Diabetes --> a1c goal <8, iss, accuchecks # NSTEMI with elev trop may be due to esrd --> as per cards management, asa bb, lipitor # Dysphagia. Family refused PEG --> hold off peg # Respiratory failure on BIPAP. DNR now --> per pulm # Dvt ppx scds ++ eliquis since 03/21 Appreciate consultation and enrique RN Subjective HEENT: Denies: no symptoms, eye pain, blurred vision, tearing, double vision, ear pain, ear discharge, nose pain, nose congestion, throat pain, throat swelling, mouth pain, mouth swelling, other Cardiovascular: Denies: no symptoms, chest pain, edema, irregular heart rate, lightheadedness, palpitations, syncope, other Respiratory: Denies: no symptoms, cough, shortness of breath, SOB with excertion, SOB at rest, sputum, wheezing, other Gastrointestinal/Abdominal: Denies: no symptoms, abdomen distended, abdominal pain, black stools, tarry stools, blood in stool, constipated, diarrhea, difficulty swallowing, nausea, poor appetite, poor fluid intake, rectal bleeding , vomiting, other Genitourinary: Denies: no symptoms, burning, discharge, frequency, flank pain, hematuria, incontinence, pain, urgency, other Neurologic/Psychiatric: Denies: no symptoms, anxiety, depressed, emotional problems, headache, numbness, paresthesia, pre-existing deficit, seizure, tingling, tremors, weakness, other Endocrine: Denies: no symptoms, excessive sweating, flushing, intolerance to cold, intolerance to heat, increased hunger, increased thirst, increased urine, unexplained weight gain, unexplained weight loss, other Hematologic/Lymphatic: Denies: no symptoms, anemia, easy bleeding, easy bruising, adenopathy, other Allergies: Coded Allergies: No Known Allergies (Unverified , 05/25/13) Subjective 03/18/19: remains confused, nonverbal, labs reviewed, meds noted 03/19: no plan for peg, code status unchanged, poor prognosis, labs noted, seen by psych 03/20: awake, no acute events, bipap, cefe, epogen 03/21: no major changes, labs noted, will begin anticoag, remains confused Objective Objective Current Medications Medications (Trade) Dose Ordered Sig/Stephany Route PRN Reason Start Time Stop Time Status Last Admin Dose Admin Acetaminophen (Tylenol) 650 mg Q6H PRN ORAL Mild Pain/Temp > 100.5 03/09/19 07:01 04/07/19 07:00 03/10/19 03:10 Albuterol/ Ipratropium (Albuterol/ Ipratropium) 3 ml Q4H PRN HHN Shortness of Breath 03/20/19 15:15 03/25/19 15:14 Albuterol/ Ipratropium (Albuterol/ Ipratropium) 3 ml Q6HRT HHN 03/20/19 19:00 03/25/19 18:59 Aspirin (ASA) 81 mg DAILY NG 03/16/19 09:00 04/07/19 08:59 03/16/19 08:19 Atorvastatin Calcium (Lipitor) 20 mg BEDTIME NG 03/15/19 21:00 04/07/19 20:59 03/15/19 21:04 Carvedilol (Coreg) 3.125 mg EVERY 12 HOURS NG 03/15/19 21:00 04/09/19 20:59 03/16/19 08:19 Cefepime HCl 500 mg/Dextrose 55 ml @ 110 mls/hr Q24H IV 03/19/19 21:00 03/26/19 20:59 03/20/19 21:12 Clonidine HCl (Catapres Tab) 0.1 mg Q8H PRN SL For High Blood Pressure 03/11/19 20:00 04/10/19 19:59 Dextrose 1,000 ml @ 30 mls/hr Q24H IV 03/09/19 14:07 04/08/19 14:06 03/19/19 22:40 Dextrose (Dextrose 50%) 25 ml Q30M PRN IV Hypoglycemia 03/09/19 07:00 04/07/19 06:59 Dextrose (Dextrose 50%) 50 ml Q30M PRN IV Hypoglycemia 03/09/19 07:00 04/07/19 06:59 Docusate Sodium (Colace) 100 mg THREE TIMES A DAY NG 03/15/19 18:00 04/14/19 17:59 03/16/19 17:26 Epoetin Best (Epoetin Best(ESRD on dialysis)) 3,000 unit SUBQ 03/17/19 21:00 04/16/19 20:59 03/19/19 20:31 Epoetin Best (Epoetin Best(ESRD on dialysis)) 4,000 unit SUBQ 03/17/19 21:00 04/16/19 20:59 03/19/19 20:31 Finasteride (Proscar) 5 mg DAILY ORAL 03/16/19 09:00 04/07/19 08:59 03/16/19 08:11 Fluticasone Propionate (Flonase) 2 spray DAILY NASAL 03/09/19 09:00 04/07/19 08:59 03/17/19 08:42 Guaifenesin/ Codeine Phosphate (Robitussin with codeine) 5 ml Q4H PRN ORAL For Cough 03/09/19 07:00 04/07/19 06:59 03/10/19 03:09 Hydralazine HCl (Apresoline) 25 mg Q4H PRN NG bp over 160 syst 03/15/19 19:03 04/07/19 07:02 Nitroglycerin (Ntg) 1 patch Q24H TDERMAL 03/09/19 14:30 04/08/19 14:29 03/20/19 17:31 Ondansetron HCl (Zofran) 4 mg Q4H PRN IVP Nausea & Vomiting 03/09/19 07:03 04/08/19 07:02 03/10/19 03:09 Pantoprazole (Protonix) 40 mg EVERY 12 HOURS IVP 03/18/19 21:00 04/14/19 17:59 03/20/19 21:15 Risperidone (RisperDAL) 1 mg BEDTIME NG 03/15/19 21:00 04/11/19 20:59 03/15/19 21:04 Sevelamer Carbonate (Renvela) 1,600 mg THREE TIMES A DAY NG 03/15/19 18:00 04/14/19 17:59 03/16/19 17:26 Tamsulosin HCl (Flomax) 0.4 mg BEDTIME ORAL 03/09/19 21:00 04/07/19 20:59 03/15/19 21:04 Vitamin D (Vitamin D) 1,000 intlu DAILY ORAL 03/16/19 09:00 04/15/19 08:59 03/16/19 08:10 Last 24 Hour Vital Signs Date Time Temp Pulse Resp B/P (MAP) Pulse Ox O2 Delivery O2 Flow Rate FiO2 03/21/19 04:00 15.0 03/21/19 04:00 Bi-pap 03/21/19 04:00 98.0 65 18 132/54 (80) 100 03/21/19 03:04 58 23 99 Full Face 40 03/21/19 00:59 62 28 95 Full Face 40 03/21/19 00:00 98.0 61 22 126/48 (74) 98 03/21/19 00:00 Bi-pap 03/20/19 22:57 61 29 97 Full Face 40 03/20/19 21:03 59 22 98 Full Face 40 03/20/19 20:36 59 119/50 03/20/19 20:00 30 03/20/19 20:00 98.2 59 22 119/50 (73) 98 03/20/19 20:00 Venturi Mask 03/20/19 20:00 60 03/20/19 19:00 60 27 100 Full Face 40 03/20/19 18:59 100 Bi-Pap 40 03/20/19 17:31 110/70 03/20/19 17:15 59 22 96 Full Face 40 03/20/19 16:00 30 03/20/19 16:00 60 03/20/19 16:00 Venturi Mask 03/20/19 16:00 97.0 58 16 110/70 (83) 98 03/20/19 15:47 60 22 100 Full Face 40 03/20/19 13:06 74 10 95 Full Face 50 03/20/19 12:00 Venturi Mask 03/20/19 12:00 30 03/20/19 12:00 98.1 62 18 127/44 (71) 99 03/20/19 11:46 61 03/20/19 11:09 79 12 96 Full Face 50 03/20/19 09:00 83 123/50 03/20/19 08:25 83 24 92 Full Face 65 03/20/19 08:00 97.9 68 20 123/50 (74) 100 03/20/19 08:00 14.0 55 03/20/19 08:00 67 03/20/19 08:00 Venturi Mask 03/20/19 07:56 97 Venturi Mask 15.0 55 03/20/19 04:00 14.0 55 03/20/19 04:00 97.5 68 20 123/50 (74) 100 03/20/19 04:00 Bi-pap 03/20/19 03:29 70 03/20/19 00:00 97.7 65 25 110/50 (70) 95 03/20/19 00:00 Bi-pap 03/19/19 23:30 63 03/19/19 22:48 78 25 95 Facial 30 03/19/19 21:08 85 28 95 Full Face 30 03/19/19 20:00 30 03/19/19 20:00 Bi-pap 03/19/19 20:00 97.6 71 25 128/72 (90) 96 03/19/19 19:35 98 Bi-Pap 30 03/19/19 19:29 71 27 98 Full Face 30 03/19/19 19:04 72 03/19/19 16:45 75 26 98 Facial 30 03/19/19 16:00 Bi-pap 03/19/19 16:00 97.8 75 26 130/50 (76) 99 03/19/19 16:00 71 03/19/19 16:00 50 03/19/19 15:15 121/51 03/19/19 15:09 74 24 100 Facial 50 03/19/19 13:18 72 27 92 Facial 70 75 25 96 Bi-Pap 70 03/19/19 12:00 72 03/19/19 12:00 98.1 69 26 104/52 (69) 96 03/19/19 12:00 14.0 55 03/19/19 12:00 Bi-pap 03/19/19 09:19 66 23 100 Facial 40 03/19/19 08:00 70 03/19/19 08:00 98.1 70 26 120/48 (72) 98 03/19/19 08:00 35 03/19/19 08:00 Bi-pap 03/19/19 07:09 69 23 100 Facial 40 70 20 100 Bi-Pap 40 03/19/19 07:09 100 Bi-Pap Intake and Output 03/20/19 03/21/19 19:00 07:00 Intake Total 360 ml 325 ml Balance 360 ml 325 ml IV Total 360 ml 325 ml Labs Test 03/19/19 03:45 03/21/19 03:15 White Blood Count 10.3 K/UL (4.8-10.8) 10.8 K/UL (4.8-10.8) Red Blood Count 2.56 M/UL (4.70-6.10) 3.17 M/UL (4.70-6.10) Hemoglobin 8.1 G/DL (14.2-18.0) 10.0 G/DL (14.2-18.0) Hematocrit 25.0 % (42.0-52.0) 31.0 % (42.0-52.0) Mean Corpuscular Volume 98 FL (80-99) 98 FL (80-99) Mean Corpuscular Hemoglobin 31.6 PG (27.0-31.0) 31.5 PG (27.0-31.0) Mean Corpuscular Hemoglobin Concent 32.4 G/DL (32.0-36.0) 32.2 G/DL (32.0-36.0) Red Cell Distribution Width 14.7 % (11.6-14.8) 14.9 % (11.6-14.8) Platelet Count 86 K/UL (150-450) 150 K/UL (150-450) Mean Platelet Volume 7.6 FL (6.5-10.1) 7.5 FL (6.5-10.1) Neutrophils (%) (Auto) % (45.0-75.0) % (45.0-75.0) Lymphocytes (%) (Auto) % (20.0-45.0) % (20.0-45.0) Monocytes (%) (Auto) % (1.0-10.0) % (1.0-10.0) Eosinophils (%) (Auto) % (0.0-3.0) % (0.0-3.0) Basophils (%) (Auto) % (0.0-2.0) % (0.0-2.0) Sodium Level 143 MMOL/L (136-145) 141 MMOL/L (136-145) Potassium Level 4.0 MMOL/L (3.5-5.1) 3.6 MMOL/L (3.5-5.1) Chloride Level 103 MMOL/L (98-107) 100 MMOL/L (98-107) Carbon Dioxide Level 33 MMOL/L (21-32) 32 MMOL/L (21-32) Anion Gap 7 mmol/L (5-15) 9 mmol/L (5-15) Blood Urea Nitrogen 52 mg/dL (7-18) 44 mg/dL (7-18) Creatinine 6.5 MG/DL (0.55-1.30) 5.7 MG/DL (0.55-1.30) Estimat Glomerular Filtration Rate mL/min (>60) mL/min (>60) Glucose Level 141 MG/DL (74-106) 231 MG/DL (74-106) Uric Acid 7.0 MG/DL (2.6-7.2) 5.7 MG/DL (2.6-7.2) Calcium Level 8.2 MG/DL (8.5-10.1) 8.3 MG/DL (8.5-10.1) Phosphorus Level 2.7 MG/DL (2.5-4.9) 3.2 MG/DL (2.5-4.9) Magnesium Level 2.3 MG/DL (1.8-2.4) 2.3 MG/DL (1.8-2.4) Total Bilirubin 0.8 MG/DL (0.2-1.0) 0.7 MG/DL (0.2-1.0) Aspartate Amino Transf (AST/SGOT) 28 U/L (15-37) 19 U/L (15-37) Alanine Aminotransferase (ALT/SGPT) 18 U/L (12-78) 11 U/L (12-78) Alkaline Phosphatase 134 U/L (46-116) 128 U/L (46-116) Troponin I 0.308 ng/mL (0.000-0.056) 0.100 ng/mL (0.000-0.056) C-Reactive Protein, Quantitative 28.4 mg/dL (0.00-0.90) 20.4 mg/dL (0.00-0.90) Total Protein 6.5 G/DL (6.4-8.2) 7.1 G/DL (6.4-8.2) Albumin 1.9 G/DL (3.4-5.0) 2.1 G/DL (3.4-5.0) Globulin 4.6 g/dL 5.0 g/dL Albumin/Globulin Ratio 0.4 (1.0-2.7) 0.4 (1.0-2.7) Height (Feet): 5 Height (Inches): 5.00 Weight (Pounds): 131 Objective Vitals: reviewed, normal Gen: no apparent distress, alert, GCS 15, non-toxic HEENT: normocephalic, atraumatic Resp: chest non-tender, lungs clear, normal Bss, BIPAP++ CV: rrr, no edema, no gallop, no JVD, no murmur Gastrointestinal: normal bowel sounds, non tender, soft, non-distended Msk: normal range of motion, non-tender, calf tenderness, + AV access LUE + thrill + bruit Neurologic: alert, oriented x3, responsive Psychiatric: judgement/insight normal, memory normal, depressed affect Reflexes: 3+ knee (L), 3+ ankle (R) Skin: normal color, no rash, warm/dry, well hydrated Lymphatic: no trip Gigi Aguirre MD Mar 21, 2019 06:09
[2019-03-21] MEDS: Albuterol/Ipratropium 3ml neb HHN SCH ×3 (07:00→18:52)
--- NOTE | 2019-03-21 07:03 | General Progress Note ---
Assessment/Plan Problem List: (1) Hypoglycemia ICD Codes: E16.2 - Hypoglycemia, unspecified SNOMED: 127520280 (2) Hemodialysis disequilibrium syndrome ICD Codes: E87.8 - Other disorders of electrolyte and fluid balance, not elsewhere classified SNOMED: 82076017 (3) NSTEMI (non-ST elevated myocardial infarction) ICD Codes: I21.4 - Non-ST elevation (NSTEMI) myocardial infarction SNOMED: 59487314 (4) ESRD (end stage renal disease) on dialysis ICD Codes: N18.6 - End stage renal disease; Z99.2 - Dependence on renal dialysis SNOMED: 753352683 (5) Diabetes ICD Codes: E11.9 - Type 2 diabetes mellitus without complications SNOMED: 85004380 (6) vascular dementia Assessment/Plan: glucose values are stable w/o hypoglycemia no need for diabetic medications continue to monitor glucose hypoglycemia protocol in order Subjective ROS Limited/Unobtainable: Yes Allergies: Coded Allergies: No Known Allergies (Unverified , 05/25/13) Subjective events noted glucose values are stable Item Value Date Time Bedside Blood Glucose 145 mg/dl H 03/21/19 0000 Bedside Blood Glucose 139 mg/dl H 03/20/19 1800 Bedside Blood Glucose 145 mg/dl H 03/20/19 1200 Bedside Blood Glucose 139 mg/dl H 03/20/19 0600 Bedside Blood Glucose 141 mg/dl H 03/20/19 0000 Objective Last 24 Hour Vital Signs Date Time Temp Pulse Resp B/P (MAP) Pulse Ox O2 Delivery O2 Flow Rate FiO2 03/21/19 04:00 15.0 03/21/19 04:00 Bi-pap 03/21/19 04:00 98.0 65 18 132/54 (80) 100 03/21/19 04:00 65 03/21/19 03:04 58 23 99 Full Face 40 03/21/19 00:59 62 28 95 Full Face 40 03/21/19 00:00 98.0 61 22 126/48 (74) 98 03/21/19 00:00 Bi-pap 03/20/19 22:57 61 29 97 Full Face 40 03/20/19 21:03 59 22 98 Full Face 40 03/20/19 20:36 59 119/50 03/20/19 20:00 30 03/20/19 20:00 98.2 59 22 119/50 (73) 98 1/23/20 20:00 Venturi Mask 03/20/19 20:00 60 03/20/19 19:00 60 27 100 Full Face 40 03/20/19 18:59 100 Bi-Pap 40 03/20/19 17:31 110/70 03/20/19 17:15 59 22 96 Full Face 40 03/20/19 16:00 30 03/20/19 16:00 60 03/20/19 16:00 Venturi Mask 03/20/19 16:00 97.0 58 16 110/70 (83) 98 03/20/19 15:47 60 22 100 Full Face 40 03/20/19 13:06 74 10 95 Full Face 50 03/20/19 12:00 Venturi Mask 03/20/19 12:00 30 03/20/19 12:00 98.1 62 18 127/44 (71) 99 03/20/19 11:46 61 03/20/19 11:09 79 12 96 Full Face 50 03/20/19 09:00 83 123/50 03/20/19 08:25 83 24 92 Full Face 65 03/20/19 08:00 97.9 68 20 123/50 (74) 100 03/20/19 08:00 14.0 55 03/20/19 08:00 67 03/20/19 08:00 Venturi Mask 03/20/19 07:56 97 Venturi Mask 15.0 55 Intake and Output 03/20/19 03/21/19 19:00 07:00 Intake Total 360 ml 325 ml Balance 360 ml 325 ml IV Total 360 ml 325 ml Laboratory Tests 03/21/19 03:15: White Blood Count 10.8, Red Blood Count 3.17L, Hemoglobin 10.0L, Hematocrit 31.0L, Mean Corpuscular Volume 98, Mean Corpuscular Hemoglobin 31.5H, Mean Corpuscular Hemoglobin Concent 32.2, Red Cell Distribution Width 14.9H, Platelet Count 150, Mean Platelet Volume 7.5, Neutrophils (%) (Auto) , Lymphocytes (%) (Auto) , Monocytes (%) (Auto) , Eosinophils (%) (Auto) , Basophils (%) (Auto) , Sodium Level 141, Potassium Level 3.6, Chloride Level 100 , Carbon Dioxide Level 32, Anion Gap 9, Blood Urea Nitrogen 44H, Creatinine 5.7H , Estimat Glomerular Filtration Rate , Glucose Level 231H, Uric Acid 5.7, Calcium Level 8.3L, Phosphorus Level 3.2, Magnesium Level 2.3, Total Bilirubin 0.7, Aspartate Amino Transf (AST/SGOT) 19, Alanine Aminotransferase (ALT/SGPT) 11L, Alkaline Phosphatase 128H, Troponin I 0.100H, C-Reactive Protein, Quantitative 20.4H, Pro-B-Type Natriuretic Peptide [Pending], Total Protein 7.1 , Albumin 2.1L, Globulin 5.0, Albumin/Globulin Ratio 0.4L Height (Feet): 5 Height (Inches): 5.00 Weight (Pounds): 131 General Appearance: lethargic Neck: normal alignment Respiratory/Chest: decreased breath sounds Abdomen: normal bowel sounds Objective Current Medications Medications (Trade) Dose Ordered Sig/Stephany Route PRN Reason Start Time Stop Time Status Last Admin Dose Admin Acetaminophen (Tylenol) 650 mg Q6H PRN ORAL Mild Pain/Temp > 100.5 03/09/19 07:01 04/07/19 07:00 03/10/19 03:10 Albuterol/ Ipratropium (Albuterol/ Ipratropium) 3 ml Q4H PRN HHN Shortness of Breath 03/20/19 15:15 03/25/19 15:14 Albuterol/ Ipratropium (Albuterol/ Ipratropium) 3 ml Q6HRT HHN 03/20/19 19:00 03/25/19 18:59 Apixaban (Eliquis) 2.5 mg BID ORAL 03/21/19 09:00 04/20/19 08:59 Aspirin (ASA) 81 mg DAILY NG 03/16/19 09:00 04/07/19 08:59 03/16/19 08:19 Atorvastatin Calcium (Lipitor) 20 mg BEDTIME NG 03/15/19 21:00 04/07/19 20:59 03/15/19 21:04 Carvedilol (Coreg) 3.125 mg EVERY 12 HOURS NG 03/15/19 21:00 04/09/19 20:59 03/16/19 08:19 Cefepime HCl 500 mg/Dextrose 55 ml @ 110 mls/hr Q24H IV 03/19/19 21:00 03/26/19 20:59 03/20/19 21:12 Clonidine HCl (Catapres Tab) 0.1 mg Q8H PRN SL For High Blood Pressure 03/11/19 20:00 04/10/19 19:59 Dextrose 1,000 ml @ 30 mls/hr Q24H IV 03/09/19 14:07 04/08/19 14:06 03/19/19 22:40 Dextrose (Dextrose 50%) 25 ml Q30M PRN IV Hypoglycemia 03/09/19 07:00 04/07/19 06:59 Dextrose (Dextrose 50%) 50 ml Q30M PRN IV Hypoglycemia 03/09/19 07:00 04/07/19 06:59 Docusate Sodium (Colace) 100 mg THREE TIMES A DAY NG 03/15/19 18:00 04/14/19 17:59 03/16/19 17:26 Epoetin Best (Epoetin Best(ESRD on dialysis)) 3,000 unit SUN- SUBQ 03/17/19 21:00 04/16/19 20:59 03/19/19 20:31 Epoetin Best (Epoetin Best(ESRD on dialysis)) 4,000 unit SUN-SUN-SUN SUBQ 03/17/19 21:00 04/16/19 20:59 03/19/19 20:31 Finasteride (Proscar) 5 mg DAILY ORAL 03/16/19 09:00 04/07/19 08:59 03/16/19 08:11 Fluticasone Propionate (Flonase) 2 spray DAILY NASAL 03/09/19 09:00 04/07/19 08:59 03/17/19 08:42 Guaifenesin/ Codeine Phosphate (Robitussin with codeine) 5 ml Q4H PRN ORAL For Cough 03/09/19 07:00 04/07/19 06:59 03/10/19 03:09 Hydralazine HCl (Apresoline) 25 mg Q4H PRN NG bp over 160 syst 03/15/19 19:03 04/07/19 07:02 Nitroglycerin (Ntg) 1 patch Q24H TDERMAL 03/09/19 14:30 04/08/19 14:29 03/20/19 17:31 Ondansetron HCl (Zofran) 4 mg Q4H PRN IVP Nausea & Vomiting 03/09/19 07:03 04/08/19 07:02 03/10/19 03:09 Pantoprazole (Protonix) 40 mg EVERY 12 HOURS IVP 03/18/19 21:00 04/14/19 17:59 03/20/19 21:15 Risperidone (RisperDAL) 1 mg BEDTIME NG 03/15/19 21:00 04/11/19 20:59 03/15/19 21:04 Sevelamer Carbonate (Renvela) 1,600 mg THREE TIMES A DAY NG 03/15/19 18:00 04/14/19 17:59 03/16/19 17:26 Tamsulosin HCl (Flomax) 0.4 mg BEDTIME ORAL 03/09/19 21:00 04/07/19 20:59 03/15/19 21:04 Vitamin D (Vitamin D) 1,000 intlu DAILY ORAL 03/16/19 09:00 04/15/19 08:59 03/16/19 08:10 Shawn Saldana MD Mar 21, 2019 07:03
--- NOTE | 2019-03-21 07:30 | NUR ---
NURSE NOTES: Received patient from MARIELA Freire. Patient is resting in bed. Patient is aox1, and confused. Patient is on Bipap as ordered and tolerating well. No reports of cardiac arrhythmias from previous shift. Patient has a right hand 22g and R AC 18g IV site , patent and flushing properly. Bed is locked, alarmed and in the lowest position. Call light within reach. Will continue to monitor.
[2019-03-21] MEDS: Pantoprazole Inj IVP SCH (08:38)
[2019-03-21] MEDS: Aspirin Baby 81mg NG SCH (08:40)
[2019-03-21] MEDS: Docusate 100mg/10ml Liq NG SCH (08:41)
[2019-03-21] MEDS: Eliquis 2.5mg tablet ORAL SCH ×2 (08:42→18:00)
[2019-03-21] MEDS: Renvela 800mg Pkt NG SCH ×3 (08:42→18:00)
[2019-03-21] MEDS: Vitamin D 1000 IU Tab ORAL SCH (08:43)
[2019-03-21] MEDS: Flonase Nasal Inhaler 16gm NASAL SCH (09:00)
--- NOTE | 2019-03-21 10:15 | Nephrology Progress Note ---
Assessment/Plan Problem List: (1) ESRD (end stage renal disease) on dialysis (2) Cardiomyopathy (3) NSTEMI (non-ST elevated myocardial infarction) Assessment: Troponin lowering (4) Acute respiratory failure with hypoxia and hypercapnia Assessment ESRD- HTN Anemia DM CAD- Cardiomyopathy s/p SEPSIS OR Plan recent 2D echo 40% EjFx Pulm Toilet and support HD 03/19 next 03/21 Keep BP in check - Hold bp meds for now due to low BP Albumin bolus ASA Nitrate per consultants per orders ? need for PEG as NGt always pulled out ? discussed with Dr Cornelius and Estelita Subjective ROS Limited/Unobtainable: No Constitutional: Reports: malaise, weakness Objective Objective Last 24 Hour Vital Signs Date Time Temp Pulse Resp B/P (MAP) Pulse Ox O2 Delivery O2 Flow Rate FiO2 03/21/19 04:00 15.0 03/21/19 04:00 Bi-pap 03/21/19 04:00 98.0 65 18 132/54 (80) 100 03/21/19 04:00 65 03/21/19 03:04 58 23 99 Full Face 40 03/21/19 00:59 62 28 95 Full Face 40 03/21/19 00:00 98.0 61 22 126/48 (74) 98 03/21/19 00:00 Bi-pap 03/20/19 22:57 61 29 97 Full Face 40 03/20/19 21:03 59 22 98 Full Face 40 03/20/19 20:36 59 119/50 03/20/19 20:00 30 03/20/19 20:00 98.2 59 22 119/50 (73) 98 03/20/19 20:00 Venturi Mask 03/20/19 20:00 60 03/20/19 19:00 60 27 100 Full Face 40 03/20/19 18:59 100 Bi-Pap 40 03/20/19 17:31 110/70 03/20/19 17:15 59 22 96 Full Face 40 03/20/19 16:00 30 03/20/19 16:00 60 03/20/19 16:00 Venturi Mask 03/20/19 16:00 97.0 58 16 110/70 (83) 98 03/20/19 15:47 60 22 100 Full Face 40 03/20/19 13:06 74 10 95 Full Face 50 1/23/20 12:00 Venturi Mask 03/20/19 12:00 30 03/20/19 12:00 98.1 62 18 127/44 (71) 99 03/20/19 11:46 61 03/20/19 11:09 79 12 96 Full Face 50 Intake and Output 03/20/19 03/21/19 19:00 07:00 Intake Total 360 ml 325 ml Balance 360 ml 325 ml IV Total 360 ml 325 ml Current Medications Medications (Trade) Dose Ordered Sig/Stephany Route PRN Reason Start Time Stop Time Status Last Admin Dose Admin Acetaminophen (Tylenol) 650 mg Q6H PRN ORAL Mild Pain/Temp > 100.5 03/09/19 07:01 04/07/19 07:00 03/10/19 03:10 Albumin Human 100 ml @ 100 mls/hr ONCE IV 03/21/19 12:00 03/21/19 13:00 03/21/19 11:44 Albuterol/ Ipratropium (Albuterol/ Ipratropium) 3 ml Q4H PRN HHN Shortness of Breath 03/20/19 15:15 03/25/19 15:14 Albuterol/ Ipratropium (Albuterol/ Ipratropium) 3 ml Q6HRT HHN 03/20/19 19:00 03/25/19 18:59 Apixaban (Eliquis) 2.5 mg BID ORAL 03/21/19 09:00 04/20/19 08:59 Aspirin (ASA) 81 mg DAILY NG 03/16/19 09:00 04/07/19 08:59 03/16/19 08:19 Atorvastatin Calcium (Lipitor) 20 mg BEDTIME NG 03/15/19 21:00 04/07/19 20:59 03/15/19 21:04 Carvedilol (Coreg) 3.125 mg EVERY 12 HOURS NG 03/15/19 21:00 04/09/19 20:59 03/16/19 08:19 Cefepime HCl 500 mg/Dextrose 55 ml @ 110 mls/hr Q24H IV 03/19/19 21:00 03/26/19 20:59 03/20/19 21:12 Clonidine HCl (Catapres Tab) 0.1 mg Q8H PRN SL For High Blood Pressure 03/11/19 20:00 04/10/19 19:59 Dextrose 1,000 ml @ 30 mls/hr Q24H IV 03/09/19 14:07 04/08/19 14:06 03/19/19 22:40 Dextrose (Dextrose 50%) 25 ml Q30M PRN IV Hypoglycemia 03/09/19 07:00 04/07/19 06:59 Dextrose (Dextrose 50%) 50 ml Q30M PRN IV Hypoglycemia 03/09/19 07:00 04/07/19 06:59 Docusate Sodium (Colace) 100 mg THREE TIMES A DAY NG 03/15/19 18:00 04/14/19 17:59 03/16/19 17:26 Epoetin Best (Epoetin Best(ESRD on dialysis)) 3,000 unit SUN- SUBQ 03/17/19 21:00 04/16/19 20:59 03/19/19 20:31 Epoetin Best (Epoetin Best(ESRD on dialysis)) 4,000 unit SUBQ 03/17/19 21:00 04/16/19 20:59 03/19/19 20:31 Finasteride (Proscar) 5 mg DAILY ORAL 03/16/19 09:00 04/07/19 08:59 03/16/19 08:11 Fluticasone Propionate (Flonase) 2 spray DAILY NASAL 03/09/19 09:00 04/07/19 08:59 03/21/19 09:00 Guaifenesin/ Codeine Phosphate (Robitussin with codeine) 5 ml Q4H PRN ORAL For Cough 03/09/19 07:00 04/07/19 06:59 03/10/19 03:09 Hydralazine HCl (Apresoline) 25 mg Q4H PRN NG bp over 160 syst 03/15/19 19:03 04/07/19 07:02 Nitroglycerin (Ntg) 1 patch Q24H TDERMAL 03/09/19 14:30 04/08/19 14:29 03/20/19 17:31 Ondansetron HCl (Zofran) 4 mg Q4H PRN IVP Nausea & Vomiting 03/09/19 07:03 04/08/19 07:02 03/10/19 03:09 Pantoprazole (Protonix) 40 mg EVERY 12 HOURS IVP 03/18/19 21:00 04/14/19 17:59 03/21/19 08:38 Risperidone (RisperDAL) 1 mg BEDTIME NG 03/15/19 21:00 04/11/19 20:59 03/15/19 21:04 Sevelamer Carbonate (Renvela) 1,600 mg THREE TIMES A DAY NG 03/15/19 18:00 04/14/19 17:59 03/16/19 17:26 Tamsulosin HCl (Flomax) 0.4 mg BEDTIME ORAL 03/09/19 21:00 04/07/19 20:59 03/15/19 21:04 Vitamin D (Vitamin D) 1,000 intlu DAILY ORAL 03/16/19 09:00 04/15/19 08:59 03/16/19 08:10 Laboratory Tests 03/21/19 03:15: White Blood Count 10.8, Red Blood Count 3.17L, Hemoglobin 10.0L, Hematocrit 31.0L, Mean Corpuscular Volume 98, Mean Corpuscular Hemoglobin 31.5H, Mean Corpuscular Hemoglobin Concent 32.2, Red Cell Distribution Width 14.9H, Platelet Count 150, Mean Platelet Volume 7.5, Neutrophils (%) (Auto) , Lymphocytes (%) (Auto) , Monocytes (%) (Auto) , Eosinophils (%) (Auto) , Basophils (%) (Auto) , Sodium Level 141, Potassium Level 3.6, Chloride Level 100 , Carbon Dioxide Level 32, Anion Gap 9, Blood Urea Nitrogen 44H, Creatinine 5.7H , Estimat Glomerular Filtration Rate , Glucose Level 231H, Uric Acid 5.7, Calcium Level 8.3L, Phosphorus Level 3.2, Magnesium Level 2.3, Total Bilirubin 0.7, Aspartate Amino Transf (AST/SGOT) 19, Alanine Aminotransferase (ALT/SGPT) 11L, Alkaline Phosphatase 128H, Troponin I 0.100H, C-Reactive Protein, Quantitative 20.4H, Pro-B-Type Natriuretic Peptide [Pending], Total Protein 7.1 , Albumin 2.1L, Globulin 5.0, Albumin/Globulin Ratio 0.4L Height (Feet): 5 Height (Inches): 5.00 Weight (Pounds): 132 Cardiovascular: bradycardia Respiratory/Chest: decreased breath sounds Abdomen: distended Objective no change Mikey Brandt MD Mar 21, 2019 10:15
--- NOTE | 2019-03-21 10:17 | NUR ---
RD ASSESSMENT & RECOMMENDATIONS SEE CARE ACTIVITY FOR COMPLETE ASSESSMENT DAILY ESTIMATED NEEDS: Needs based on ESRD w/ HD, 63.6kg 25-35 kcals/kg [id number] total kcals 1.2-1.8 g protein/kg 76-115 g total protein Fluid per MD, on HD NUTRITION DIAGNOSIS: * Increased kcal and protein needs r/t renal dysfunction as evidenced by pt w/ ESRD on HD * Swallowing difficulty R/T dysphagia, respiratory status as evidenced by pt failed MBSS, now NPO, s/p RR, on BIPAP -> now on simple mask, PEG placement when pt stable per MD. ENTERAL NUTRITION RECOMMENDATIONS: NEPRO @ 40ml/hr x 24 hrs to provide 960ml, 1728kcal, 78g prot, 698ml free water * W/ GI access, initiate Nepro @ 10ml/hr x 6 hrs * Advance 10ml q 4-6 hrs as tolerated to goal rate * HOB over 30 degrees/ water flush per MD ADDITIONAL RECOMMENDATIONS: * Calibrated bedscale wt * Monitor NPO status, ability for PEG placement -> Per MD family does not want PEG * Monitor lytes (Phos elev) * Monitor for hypoglycemia while pt on NPO- pt on D10% at this time
--- NOTE | 2019-03-21 11:36 | Cardiac Electrophysiology PN ---
Assessment/Plan Assessment/Plan 1. Troponin elevation due to renal failure. Troponin peak is 3.5 that is coming down to 1.88. Confused in restraints. No CP or SOB. EKG no acute changes. EF 40 % On aspirin, Coreg 3.125 bid and Lipitor. Treat medically 2. Cardiomyopathy with EF of 40%. BNP is more than 35,000. Echo on 02/02/2019 showed EF of 55% to 60%, repeat echocardiogram showed EF 40%. On Coreg, Lisinopril 10 daily and HD 3. On Eliquis for CVA and PVD. No Fib or DVT or PE 4. End-stage renal disease, on hemodialysis. 5. Lactic acidosis. 6. Hyperlipidemia, on Lipitor. 7. Dysphagia. Family refused PEG 8. Respiratory failure on BIPAP. SEB RN Subjective Subjective On Face Mask. No events. RN at bedside. Getting ready for HD Objective Last 24 Hour Vital Signs Date Time Temp Pulse Resp B/P (MAP) Pulse Ox O2 Delivery O2 Flow Rate FiO2 03/21/19 08:00 Bi-pap 03/21/19 08:00 15.0 03/21/19 08:00 98.0 64 18 129/51 (77) 92 03/21/19 04:00 15.0 03/21/19 04:00 Bi-pap 03/21/19 04:00 98.0 65 18 132/54 (80) 100 03/21/19 04:00 65 03/21/19 03:04 58 23 99 Full Face 40 03/21/19 00:59 62 28 95 Full Face 40 03/21/19 00:00 98.0 61 22 126/48 (74) 98 03/21/19 00:00 Bi-pap 03/20/19 22:57 61 29 97 Full Face 40 03/20/19 21:03 59 22 98 Full Face 40 03/20/19 20:36 59 119/50 03/20/19 20:00 30 03/20/19 20:00 98.2 59 22 119/50 (73) 98 03/20/19 20:00 Venturi Mask 03/20/19 20:00 60 03/20/19 19:00 60 27 100 Full Face 40 03/20/19 18:59 100 Bi-Pap 40 03/20/19 17:31 110/70 03/20/19 17:15 59 22 96 Full Face 40 03/20/19 16:00 30 03/20/19 16:00 60 03/20/19 16:00 Venturi Mask 03/20/19 16:00 97.0 58 16 110/70 (83) 98 03/20/19 15:47 60 22 100 Full Face 40 03/20/19 13:06 74 10 95 Full Face 50 03/20/19 12:00 Venturi Mask 03/20/19 12:00 30 03/20/19 12:00 98.1 62 18 127/44 (71) 99 03/20/19 11:46 61 Intake and Output 03/20/19 03/21/19 18:59 06:59 Intake Total 360 ml 355 ml Balance 360 ml 355 ml IV Total 360 ml 355 ml Laboratory Tests Test 03/21/19 03:15 White Blood Count 10.8 K/UL (4.8-10.8) Red Blood Count 3.17 M/UL (4.70-6.10) L Hemoglobin 10.0 G/DL (14.2-18.0) L Hematocrit 31.0 % (42.0-52.0) L Mean Corpuscular Volume 98 FL (80-99) Mean Corpuscular Hemoglobin 31.5 PG (27.0-31.0) H Mean Corpuscular Hemoglobin Concent 32.2 G/DL (32.0-36.0) Red Cell Distribution Width 14.9 % (11.6-14.8) H Platelet Count 150 K/UL (150-450) Mean Platelet Volume 7.5 FL (6.5-10.1) Neutrophils (%) (Auto) % (45.0-75.0) Lymphocytes (%) (Auto) % (20.0-45.0) Monocytes (%) (Auto) % (1.0-10.0) Eosinophils (%) (Auto) % (0.0-3.0) Basophils (%) (Auto) % (0.0-2.0) Sodium Level 141 MMOL/L (136-145) Potassium Level 3.6 MMOL/L (3.5-5.1) Chloride Level 100 MMOL/L (98-107) Carbon Dioxide Level 32 MMOL/L (21-32) Anion Gap 9 mmol/L (5-15) Blood Urea Nitrogen 44 mg/dL (7-18) H Creatinine 5.7 MG/DL (0.55-1.30) H Estimat Glomerular Filtration Rate mL/min (>60) Glucose Level 231 MG/DL (74-106) H Uric Acid 5.7 MG/DL (2.6-7.2) Calcium Level 8.3 MG/DL (8.5-10.1) L Phosphorus Level 3.2 MG/DL (2.5-4.9) Magnesium Level 2.3 MG/DL (1.8-2.4) Total Bilirubin 0.7 MG/DL (0.2-1.0) Aspartate Amino Transf (AST/SGOT) 19 U/L (15-37) Alanine Aminotransferase (ALT/SGPT) 11 U/L (12-78) L Alkaline Phosphatase 128 U/L (46-116) H Troponin I 0.100 ng/mL (0.000-0.056) C-Reactive Protein, Quantitative 20.4 mg/dL (0.00-0.90) H Pro-B-Type Natriuretic Peptide Pending Total Protein 7.1 G/DL (6.4-8.2) Albumin 2.1 G/DL (3.4-5.0) L Globulin 5.0 g/dL Albumin/Globulin Ratio 0.4 (1.0-2.7) L Microbiology Date/Time Source Procedure Growth Status 03/19/19 19:00 Sputum Induced Gram Stain - Final Resulted 03/19/19 19:00 Sputum Induced Sputum Culture Pending Resulted Objective HEAD AND NECK: No JVD. BIPAP on LUNGS: Clear. CARDIOVASCULAR: Regular S1 and S2 with no gallop or murmur. ABDOMEN: Soft. EXTREMITIES: No pitting edema. Dialysis access in the left arm. Dariel Corcoran MD Mar 21, 2019 11:36
--- NOTE | 2019-03-21 12:50 | NUR ---
FIRST LINE PRODUCTION SUPERVISOR Note: FIRST LINE PRODUCTION SUPERVISOR was called at 1245, and notified MD García . See FIRST LINE PRODUCTION SUPERVISOR documentation form for full report.
[2019-03-21] MEDS: Docusate 100mg cap ORAL SCH ×2 (13:00→18:00)
--- NOTE | 2019-03-21 13:04 | Infectious Diseases Prog Note ---
Assessment/Plan Assessment/Plan IMPRESSION: 1. Leukocytosis, resolved 2. Lactic acidosis. 3.Doubt sepsis 4. [id number] [place]. 5. End-stage renal disease, on hemodialysis. 6. Diabetes mellitus, type 2. 7. Hypertension. 8. BPH. 9. Systolic CHF with ejection fraction of 40%. 10. Dysphagia 11. Hypoxemia 12. Pulmonary edema versus pneumonia 13. Anemia 14. Thrombocytopenia RECOMMENDATIONS: Continue Cefepime X 1 day DNR, DNI on palliative care Subjective ROS Limited/Unobtainable: Yes Respiratory: Reports: other - has oxygen desatruation during HD Neurologic: Reports: confusion, other - on restraint Allergies: Coded Allergies: No Known Allergies (Unverified , 05/25/13) Objective Vital Signs Last 24 Hour Vital Signs Date Time Temp Pulse Resp B/P (MAP) Pulse Ox O2 Delivery O2 Flow Rate FiO2 03/21/19 08:00 Bi-pap 03/21/19 08:00 65 03/21/19 08:00 15.0 03/21/19 08:00 98.0 64 18 129/51 (77) 92 03/21/19 04:00 15.0 03/21/19 04:00 Bi-pap 03/21/19 04:00 98.0 65 18 132/54 (80) 100 03/21/19 04:00 65 03/21/19 03:04 58 23 99 Full Face 40 03/21/19 00:59 62 28 95 Full Face 40 03/21/19 00:00 98.0 61 22 126/48 (74) 98 03/21/19 00:00 Bi-pap 03/20/19 22:57 61 29 97 Full Face 40 03/20/19 21:03 59 22 98 Full Face 40 03/20/19 20:36 59 119/50 03/20/19 20:00 30 03/20/19 20:00 98.2 59 22 119/50 (73) 98 03/20/19 20:00 Venturi Mask 03/20/19 20:00 60 03/20/19 19:00 60 27 100 Full Face 40 03/20/19 18:59 100 Bi-Pap 40 03/20/19 17:31 110/70 03/20/19 17:15 59 22 96 Full Face 40 03/20/19 16:00 30 1/23/20 16:00 60 03/20/19 16:00 Venturi Mask 03/20/19 16:00 97.0 58 16 110/70 (83) 98 03/20/19 15:47 60 22 100 Full Face 40 03/20/19 13:06 74 10 95 Full Face 50 Height (Feet): 5 Height (Inches): 5.00 Weight (Pounds): 132 HEENT: mucous membranes moist Respiratory/Chest: lungs clear, other - on BIPAP Cardiovascular: normal rate Abdomen: soft, non tender Extremities: no edema Neurologic/Psychiatric: unresponsiveness, aphasia Microbiology Date/Time Source Procedure Growth Status 03/19/19 19:00 Sputum Induced Gram Stain - Final Resulted 03/19/19 19:00 Sputum Induced Sputum Culture Pending Resulted Laboratory Tests Test 03/21/19 03:15 White Blood Count 10.8 K/UL (4.8-10.8) Red Blood Count 3.17 M/UL (4.70-6.10) L Hemoglobin 10.0 G/DL (14.2-18.0) L Hematocrit 31.0 % (42.0-52.0) L Mean Corpuscular Volume 98 FL (80-99) Mean Corpuscular Hemoglobin 31.5 PG (27.0-31.0) H Mean Corpuscular Hemoglobin Concent 32.2 G/DL (32.0-36.0) Red Cell Distribution Width 14.9 % (11.6-14.8) H Platelet Count 150 K/UL (150-450) Mean Platelet Volume 7.5 FL (6.5-10.1) Neutrophils (%) (Auto) % (45.0-75.0) Lymphocytes (%) (Auto) % (20.0-45.0) Monocytes (%) (Auto) % (1.0-10.0) Eosinophils (%) (Auto) % (0.0-3.0) Basophils (%) (Auto) % (0.0-2.0) Sodium Level 141 MMOL/L (136-145) Potassium Level 3.6 MMOL/L (3.5-5.1) Chloride Level 100 MMOL/L (98-107) Carbon Dioxide Level 32 MMOL/L (21-32) Anion Gap 9 mmol/L (5-15) Blood Urea Nitrogen 44 mg/dL (7-18) H Creatinine 5.7 MG/DL (0.55-1.30) H Estimat Glomerular Filtration Rate mL/min (>60) Glucose Level 231 MG/DL (74-106) H Uric Acid 5.7 MG/DL (2.6-7.2) Calcium Level 8.3 MG/DL (8.5-10.1) L Phosphorus Level 3.2 MG/DL (2.5-4.9) Magnesium Level 2.3 MG/DL (1.8-2.4) Total Bilirubin 0.7 MG/DL (0.2-1.0) Aspartate Amino Transf (AST/SGOT) 19 U/L (15-37) Alanine Aminotransferase (ALT/SGPT) 11 U/L (12-78) L Alkaline Phosphatase 128 U/L (46-116) H Troponin I 0.100 ng/mL (0.000-0.056) C-Reactive Protein, Quantitative 20.4 mg/dL (0.00-0.90) H Pro-B-Type Natriuretic Peptide Pending Total Protein 7.1 G/DL (6.4-8.2) Albumin 2.1 G/DL (3.4-5.0) L Globulin 5.0 g/dL Albumin/Globulin Ratio 0.4 (1.0-2.7) L Current Medications Medications (Trade) Dose Ordered Sig/Stephany Route PRN Reason Start Time Stop Time Status Last Admin Dose Admin Acetaminophen (Tylenol) 650 mg Q6H PRN ORAL Mild Pain/Temp > 100.5 03/09/19 07:01 04/07/19 07:00 03/10/19 03:10 Albuterol/ Ipratropium (Albuterol/ Ipratropium) 3 ml Q4H PRN HHN Shortness of Breath 03/20/19 15:15 03/25/19 15:14 Albuterol/ Ipratropium (Albuterol/ Ipratropium) 3 ml Q6HRT HHN 03/20/19 19:00 03/25/19 18:59 Apixaban (Eliquis) 2.5 mg BID ORAL 03/21/19 09:00 04/20/19 08:59 Aspirin (ASA) 81 mg DAILY NG 03/16/19 09:00 04/07/19 08:59 03/16/19 08:19 Atorvastatin Calcium (Lipitor) 20 mg BEDTIME NG 03/15/19 21:00 04/07/19 20:59 03/15/19 21:04 Carvedilol (Coreg) 3.125 mg EVERY 12 HOURS NG 03/15/19 21:00 04/09/19 20:59 03/16/19 08:19 Cefepime HCl 500 mg/Dextrose 55 ml @ 110 mls/hr Q24H IV 03/19/19 21:00 03/26/19 20:59 03/20/19 21:12 Clonidine HCl (Catapres Tab) 0.1 mg Q8H PRN SL For High Blood Pressure 03/11/19 20:00 04/10/19 19:59 Dextrose 1,000 ml @ 30 mls/hr Q24H IV 03/09/19 14:07 04/08/19 14:06 03/19/19 22:40 Dextrose (Dextrose 50%) 25 ml Q30M PRN IV Hypoglycemia 03/09/19 07:00 04/07/19 06:59 Dextrose (Dextrose 50%) 50 ml Q30M PRN IV Hypoglycemia 03/09/19 07:00 04/07/19 06:59 Docusate Sodium (Colace) 100 mg THREE TIMES A DAY ORAL 03/21/19 13:00 04/20/19 12:59 Epoetin Best (Epoetin Best(ESRD on dialysis)) 3,000 unit SUBQ 03/17/19 21:00 04/16/19 20:59 03/19/19 20:31 Epoetin Best (Epoetin Best(ESRD on dialysis)) 4,000 unit SUBQ 03/17/19 21:00 04/16/19 20:59 03/19/19 20:31 Finasteride (Proscar) 5 mg DAILY ORAL 03/16/19 09:00 04/07/19 08:59 03/16/19 08:11 Fluticasone Propionate (Flonase) 2 spray DAILY NASAL 03/09/19 09:00 04/07/19 08:59 03/21/19 09:00 Guaifenesin/ Codeine Phosphate (Robitussin with codeine) 5 ml Q4H PRN ORAL For Cough 03/09/19 07:00 04/07/19 06:59 03/10/19 03:09 Hydralazine HCl (Apresoline) 25 mg Q4H PRN NG bp over 160 syst 03/15/19 19:03 04/07/19 07:02 Isosorbide Dinitrate (Isordil) 10 mg Q8HR ORAL 03/21/19 14:00 04/20/19 13:59 Nitroglycerin (Ntg) 1 patch Q24H TDERMAL 03/09/19 14:30 04/08/19 14:29 03/20/19 17:31 Ondansetron HCl (Zofran) 4 mg Q4H PRN IVP Nausea & Vomiting 03/09/19 07:03 04/08/19 07:02 03/10/19 03:09 Pantoprazole (Protonix) 40 mg EVERY 12 HOURS ORAL 03/21/19 21:00 04/20/19 20:59 Risperidone (RisperDAL) 1 mg BEDTIME NG 03/15/19 21:00 04/11/19 20:59 03/15/19 21:04 Sevelamer Carbonate (Renvela) 1,600 mg THREE TIMES A DAY NG 03/15/19 18:00 04/14/19 17:59 03/16/19 17:26 Tamsulosin HCl (Flomax) 0.4 mg BEDTIME ORAL 03/09/19 21:00 04/07/19 20:59 03/15/19 21:04 Boyd Tee MD Mar 21, 2019 13:03
[2019-03-21] MEDS: Nitroglycerin Patch 0.4mg TDERMAL SCH (14:30)
--- NOTE | 2019-03-21 15:30 | NUR ---
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 97.8 HR 65 RR 30 B/P 119/46 BIPAP 15/5 FIO2 80% IS: CEFEPIME IV IVF D5 30ML/HR PROTONIX IV STEP DOWN STATUS
[2019-03-21] MEDS: Dextrose 10% 1,000 ML IV SCH (15:55)
--- NOTE | 2019-03-21 18:56 | General Progress Note ---
Assessment/Plan Assessment/Plan: Assessment - Failed swallow, aspiration risk - resp failure - still too high a risk for EGD - NSTEMI - thrombocytopenia - PNA - CAD - ESRD, HD - OBS - Poor prognosis Recommendations - Pulmonary f/u - follow resp parameters closely - no plans for PEG, unless intubated or trach placed - Family discussion - consider comfort measures / terminal care Subjective Allergies: Coded Allergies: No Known Allergies (Unverified , 05/25/13) Subjective Above noted on BIPAP non communicative Objective Last 24 Hour Vital Signs Date Time Temp Pulse Resp B/P (MAP) Pulse Ox O2 Delivery O2 Flow Rate FiO2 03/21/19 17:00 63 28 94 Full Face 80 03/21/19 16:00 30 03/21/19 16:00 64 03/21/19 16:00 Bi-pap 03/21/19 16:00 96.7 65 23 97/46 (63) 97 03/21/19 15:24 86 24 92 Full Face 80 03/21/19 14:30 119/46 03/21/19 13:05 65 22 90 03/21/19 13:00 89 30 88 Full Face 80 03/21/19 12:45 100 03/21/19 12:00 97.8 65 22 119/46 (70) 90 03/21/19 12:00 Bi-pap 03/21/19 12:00 64 03/21/19 08:00 Bi-pap 03/21/19 08:00 65 03/21/19 08:00 15.0 03/21/19 08:00 98.0 64 18 129/51 (77) 92 03/21/19 07:55 96 Bi-Pap 40 03/21/19 04:00 15.0 03/21/19 04:00 Bi-pap 03/21/19 04:00 98.0 65 18 132/54 (80) 100 03/21/19 04:00 65 03/21/19 03:04 58 23 99 Full Face 40 03/21/19 00:59 62 28 95 Full Face 40 03/21/19 00:00 98.0 61 22 126/48 (74) 98 03/21/19 00:00 Bi-pap 03/20/19 22:57 61 29 97 Full Face 40 03/20/19 21:03 59 22 98 Full Face 40 03/20/19 20:36 59 119/50 03/20/19 20:00 30 03/20/19 20:00 98.2 59 22 119/50 (73) 98 03/20/19 20:00 Venturi Mask 03/20/19 20:00 60 03/20/19 19:00 60 27 100 Full Face 40 03/20/19 18:59 100 Bi-Pap 40 Intake and Output 03/20/19 03/21/19 19:00 07:00 Intake Total 360 ml 355 ml Balance 360 ml 355 ml IV Total 360 ml 355 ml Laboratory Tests 03/21/19 03:15: White Blood Count 10.8, Red Blood Count 3.17L, Hemoglobin 10.0L, Hematocrit 31.0L, Mean Corpuscular Volume 98, Mean Corpuscular Hemoglobin 31.5H, Mean Corpuscular Hemoglobin Concent 32.2, Red Cell Distribution Width 14.9H, Platelet Count 150, Mean Platelet Volume 7.5, Neutrophils (%) (Auto) , Lymphocytes (%) (Auto) , Monocytes (%) (Auto) , Eosinophils (%) (Auto) , Basophils (%) (Auto) , Sodium Level 141, Potassium Level 3.6, Chloride Level 100 , Carbon Dioxide Level 32, Anion Gap 9, Blood Urea Nitrogen 44H, Creatinine 5.7H , Estimat Glomerular Filtration Rate , Glucose Level 231H, Uric Acid 5.7, Calcium Level 8.3L, Phosphorus Level 3.2, Magnesium Level 2.3, Total Bilirubin 0.7, Aspartate Amino Transf (AST/SGOT) 19, Alanine Aminotransferase (ALT/SGPT) 11L, Alkaline Phosphatase 128H, Troponin I 0.100H, C-Reactive Protein, Quantitative 20.4H, Pro-B-Type Natriuretic Peptide [Pending], Total Protein 7.1 , Albumin 2.1L, Globulin 5.0, Albumin/Globulin Ratio 0.4L Height (Feet): 5 Height (Inches): 5.00 Weight (Pounds): 132 Objective Elderly man NCAT supple Coarse ronchi RR Abd soft Mann Graham MD Mar 21, 2019 18:56
--- NOTE | 2019-03-21 19:25 | Pulmonology Progress Note ---
Assessment/Plan Problems: (1) NSTEMI (non-ST elevated myocardial infarction) (2) ESRD (end stage renal disease) on dialysis (3) Cardiomyopathy (4) HTN (hypertension) (5) HLD (hyperlipidemia) (6) CVA (cerebral vascular accident) Assessment/Plan ASSESSMENT: The patient is an 83-year-old male with a history of prior CVA, end -stage renal disease, on dialysis, hypertension, hyperlipidemia, CAD, CVA, and BPH presenting with dizziness and [id number] ME. He is fairly stable from a respiratory standpoint. PROBLEM LIST: 1. Non ST-elevation myocardial infarction. 2. Recent pneumonia. 3. Dizziness. 4. End-stage renal disease, on dialysis. 5. CAD. 6. Hypertension. 7. Hyperlipidemia. 8. Anemia. 9. Diabetes. TREATMENT PLAN: NO escalation, no ICU transfer Optimize pulmonary hygiene/mobilize as tolerated. Continue BiPAP for now, attempt to wean off Titrate O2 HHN's Abx: Cefepime per ID Follow up Cardiology recommendations, medical management of non-STEMI. AC held 2/2 thrombocytopenia Monitor volumes and renal function, dialysis per Vangie/UF as tolerated DNAR/DNI Subjective Allergies: Coded Allergies: No Known Allergies (Unverified , 05/25/13) Subjective On BiPAP lethargic + cough + SOB Objective Last 24 Hour Vital Signs Date Time Temp Pulse Resp B/P (MAP) Pulse Ox O2 Delivery O2 Flow Rate FiO2 03/21/19 19:01 99 Bi-Pap 70 03/21/19 18:52 68 27 97 Full Face 70 68 30 99 Bi-Pap 70 03/21/19 17:00 63 28 94 Full Face 80 03/21/19 16:00 30 03/21/19 16:00 64 03/21/19 16:00 Bi-pap 03/21/19 16:00 96.7 65 23 97/46 (63) 97 03/21/19 15:24 86 24 92 Full Face 80 03/21/19 14:30 119/46 03/21/19 13:05 65 22 90 03/21/19 13:00 89 30 88 Full Face 80 03/21/19 12:45 100 03/21/19 12:00 97.8 65 22 119/46 (70) 90 03/21/19 12:00 Bi-pap 03/21/19 12:00 64 1/24/20 08:00 Bi-pap 03/21/19 08:00 65 03/21/19 08:00 15.0 03/21/19 08:00 98.0 64 18 129/51 (77) 92 03/21/19 07:55 96 Bi-Pap 40 03/21/19 04:00 15.0 03/21/19 04:00 Bi-pap 03/21/19 04:00 98.0 65 18 132/54 (80) 100 03/21/19 04:00 65 03/21/19 03:04 58 23 99 Full Face 40 03/21/19 00:59 62 28 95 Full Face 40 03/21/19 00:00 98.0 61 22 126/48 (74) 98 03/21/19 00:00 Bi-pap 03/20/19 22:57 61 29 97 Full Face 40 03/20/19 21:03 59 22 98 Full Face 40 03/20/19 20:36 59 119/50 03/20/19 20:00 30 03/20/19 20:00 98.2 59 22 119/50 (73) 98 03/20/19 20:00 Venturi Mask 03/20/19 20:00 60 Intake and Output 03/20/19 03/21/19 19:00 07:00 Intake Total 360 ml 355 ml Balance 360 ml 355 ml IV Total 360 ml 355 ml General Appearance: cachetic HEENT: normocephalic, atraumatic, anicteric, mucous membranes moist Respiratory/Chest: rhonchi Cardiovascular: normal peripheral pulses, normal rate, regular rhythm Abdomen: normal bowel sounds, soft, non tender, no organomegaly, non distended , no mass Extremities: no cyanosis, no clubbing, no edema Microbiology Date/Time Source Procedure Growth Status 03/19/19 19:00 Sputum Induced Gram Stain - Final Resulted 03/19/19 19:00 Sputum Induced Sputum Culture Pending Resulted Laboratory Tests 03/21/19 03:15: White Blood Count 10.8, Red Blood Count 3.17L, Hemoglobin 10.0L, Hematocrit 31.0L, Mean Corpuscular Volume 98, Mean Corpuscular Hemoglobin 31.5H, Mean Corpuscular Hemoglobin Concent 32.2, Red Cell Distribution Width 14.9H, Platelet Count 150, Mean Platelet Volume 7.5, Neutrophils (%) (Auto) , Lymphocytes (%) (Auto) , Monocytes (%) (Auto) , Eosinophils (%) (Auto) , Basophils (%) (Auto) , Sodium Level 141, Potassium Level 3.6, Chloride Level 100 , Carbon Dioxide Level 32, Anion Gap 9, Blood Urea Nitrogen 44H, Creatinine 5.7H , Estimat Glomerular Filtration Rate , Glucose Level 231H, Uric Acid 5.7, Calcium Level 8.3L, Phosphorus Level 3.2, Magnesium Level 2.3, Total Bilirubin 0.7, Aspartate Amino Transf (AST/SGOT) 19, Alanine Aminotransferase (ALT/SGPT) 11L, Alkaline Phosphatase 128H, Troponin I 0.100H, C-Reactive Protein, Quantitative 20.4H, Pro-B-Type Natriuretic Peptide [Pending], Total Protein 7.1 , Albumin 2.1L, Globulin 5.0, Albumin/Globulin Ratio 0.4L Current Medications Medications (Trade) Dose Ordered Sig/Stephany Route PRN Reason Start Time Stop Time Status Last Admin Dose Admin Acetaminophen (Tylenol) 650 mg Q6H PRN ORAL Mild Pain/Temp > 100.5 03/09/19 07:01 04/07/19 07:00 03/10/19 03:10 Albuterol/ Ipratropium (Albuterol/ Ipratropium) 3 ml Q4H PRN HHN Shortness of Breath 03/20/19 15:15 03/25/19 15:14 Albuterol/ Ipratropium (Albuterol/ Ipratropium) 3 ml Q6HRT HHN 03/20/19 19:00 03/25/19 18:59 03/21/19 18:52 Apixaban (Eliquis) 2.5 mg BID ORAL 03/21/19 09:00 04/20/19 08:59 Aspirin (ASA) 81 mg DAILY NG 03/16/19 09:00 04/07/19 08:59 03/16/19 08:19 Atorvastatin Calcium (Lipitor) 20 mg BEDTIME NG 03/15/19 21:00 04/07/19 20:59 03/15/19 21:04 Carvedilol (Coreg) 3.125 mg EVERY 12 HOURS NG 03/15/19 21:00 04/09/19 20:59 03/16/19 08:19 Cefepime HCl 500 mg/Dextrose 55 ml @ 110 mls/hr Q24H IV 03/19/19 21:00 03/26/19 20:59 03/20/19 21:12 Clonidine HCl (Catapres Tab) 0.1 mg Q8H PRN SL For High Blood Pressure 03/11/19 20:00 04/10/19 19:59 Dextrose 1,000 ml @ 30 mls/hr Q24H IV 03/09/19 14:07 04/08/19 14:06 03/21/19 15:55 Dextrose (Dextrose 50%) 25 ml Q30M PRN IV Hypoglycemia 03/09/19 07:00 04/07/19 06:59 Dextrose (Dextrose 50%) 50 ml Q30M PRN IV Hypoglycemia 03/09/19 07:00 04/07/19 06:59 Docusate Sodium (Colace) 100 mg THREE TIMES A DAY ORAL 03/21/19 13:00 04/20/19 12:59 Epoetin Best (Epoetin Best(ESRD on dialysis)) 3,000 unit SUN-SUN-SUN SUBQ 03/17/19 21:00 04/16/19 20:59 03/19/19 20:31 Epoetin Best (Epoetin Best(ESRD on dialysis)) 4,000 unit SUN- SUBQ 03/17/19 21:00 04/16/19 20:59 03/19/19 20:31 Finasteride (Proscar) 5 mg DAILY ORAL 03/16/19 09:00 04/07/19 08:59 03/16/19 08:11 Fluticasone Propionate (Flonase) 2 spray DAILY NASAL 03/09/19 09:00 04/07/19 08:59 03/21/19 09:00 Guaifenesin/ Codeine Phosphate (Robitussin with codeine) 5 ml Q4H PRN ORAL For Cough 03/09/19 07:00 04/07/19 06:59 03/10/19 03:09 Hydralazine HCl (Apresoline) 25 mg Q4H PRN NG bp over 160 syst 03/15/19 19:03 04/07/19 07:02 Isosorbide Dinitrate (Isordil) 10 mg Q8HR ORAL 03/21/19 14:00 04/20/19 13:59 Nitroglycerin (Ntg) 1 patch Q24H TDERMAL 03/09/19 14:30 04/08/19 14:29 03/21/19 14:30 Ondansetron HCl (Zofran) 4 mg Q4H PRN IVP Nausea & Vomiting 03/09/19 07:03 04/08/19 07:02 03/10/19 03:09 Pantoprazole (Protonix) 40 mg EVERY 12 HOURS ORAL 03/21/19 21:00 04/20/19 20:59 Risperidone (RisperDAL) 1 mg BEDTIME NG 03/15/19 21:00 04/11/19 20:59 03/15/19 21:04 Sevelamer Carbonate (Renvela) 1,600 mg THREE TIMES A DAY NG 03/15/19 18:00 04/14/19 17:59 03/16/19 17:26 Tamsulosin HCl (Flomax) 0.4 mg BEDTIME ORAL 03/09/19 21:00 04/07/19 20:59 03/15/19 21:04 Thaddeus Cornelius MD Mar 21, 2019 19:25
--- NOTE | 2019-03-21 19:25 | NUR ---
HAND-OFF: Report given to MARIELA Triplett. Patient in stable condition. Endorsed care.
--- NOTE | 2019-03-21 19:30 | NUR ---
NURSE NOTES: Pt report received from [facility]. pt remains stable with BIPAP on.. pt is alert and oriented times 1. pt is on BIPAP satting at 99%, no resp distress noted. 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 pt bed is low, locked, armed, bed rails up times 3, call light within normal limits. will follow plan of care.
[2019-03-21] MEDS: Atorvastatin 20mg tab NG SCH (20:41)
[2019-03-21] MEDS: Tamsulosin 0.4mg cap ORAL SCH (20:41)
--- NOTE | 2019-03-21 20:45 | NUR ---
NURSE NOTES: Pt 2100 oral meds on hold due to pt being on BIPAP post rapid response (refer to day shift RN ,marcin RN rapid response interventions for further detail).
--- NOTE | 2019-03-21 20:53 | General Progress Note ---
Assessment/Plan Assessment/Plan: respiratory failure aspiration risk NSTEMI renal failure diabeters persistent hypoglycemia ho pneumonia ho elevated lactic acid htn hld thrombocytopenia bipap prn aggressive pulmonaryhygiene, followed by Dr Adryan nichole noted , pos aspirate eliquis held heme eval apprecaiated aspiration precutions\pulmonary hygiene echo noted, decreaed EF endo eval appreciated dialysis dependent abx per ID dw Dr Burk, on eliquis due to previous stroke paf dvt and ulcer prophylaxis dw family they dont want aggressive measure want him to be comfortable DNR DNI, they dont want tube feeds no intubation palliative measures polar dillws our Subjective Allergies: Coded Allergies: No Known Allergies (Unverified , 05/25/13) Subjective on bipap, patient became unresponsive during dialysis ALIGNMENT SPECIALIST was called patien is DNR, now more awake has BIPAP on Objective Last 24 Hour Vital Signs Date Time Temp Pulse Resp B/P (MAP) Pulse Ox O2 Delivery O2 Flow Rate FiO2 03/21/19 20:40 70 110/73 03/21/19 19:01 99 Bi-Pap 70 03/21/19 18:52 68 27 97 Full Face 70 68 30 99 Bi-Pap 70 03/21/19 17:00 63 28 94 Full Face 80 03/21/19 16:00 30 03/21/19 16:00 64 03/21/19 16:00 Bi-pap 03/21/19 16:00 96.7 65 23 97/46 (63) 97 03/21/19 15:24 86 24 92 Full Face 80 03/21/19 14:30 119/46 03/21/19 13:05 65 22 90 03/21/19 13:00 89 30 88 Full Face 80 03/21/19 12:45 100 03/21/19 12:00 97.8 65 22 119/46 (70) 90 03/21/19 12:00 Bi-pap 03/21/19 12:00 64 03/21/19 08:00 Bi-pap 03/21/19 08:00 65 03/21/19 08:00 15.0 03/21/19 08:00 98.0 64 18 129/51 (77) 92 03/21/19 07:55 96 Bi-Pap 40 03/21/19 04:00 15.0 03/21/19 04:00 Bi-pap 03/21/19 04:00 98.0 65 18 132/54 (80) 100 03/21/19 04:00 65 03/21/19 03:04 58 23 99 Full Face 40 03/21/19 00:59 62 28 95 Full Face 40 03/21/19 00:00 98.0 61 22 126/48 (74) 98 03/21/19 00:00 Bi-pap 03/20/19 22:57 61 29 97 Full Face 40 03/20/19 21:03 59 22 98 Full Face 40 Intake and Output 03/20/19 03/21/19 19:00 07:00 Intake Total 360 ml 355 ml Balance 360 ml 355 ml IV Total 360 ml 355 ml Laboratory Tests 03/21/19 03:15: White Blood Count 10.8, Red Blood Count 3.17L, Hemoglobin 10.0L, Hematocrit 31.0L, Mean Corpuscular Volume 98, Mean Corpuscular Hemoglobin 31.5H, Mean Corpuscular Hemoglobin Concent 32.2, Red Cell Distribution Width 14.9H, Platelet Count 150, Mean Platelet Volume 7.5, Neutrophils (%) (Auto) , Lymphocytes (%) (Auto) , Monocytes (%) (Auto) , Eosinophils (%) (Auto) , Basophils (%) (Auto) , Sodium Level 141, Potassium Level 3.6, Chloride Level 100 , Carbon Dioxide Level 32, Anion Gap 9, Blood Urea Nitrogen 44H, Creatinine 5.7H , Estimat Glomerular Filtration Rate , Glucose Level 231H, Uric Acid 5.7, Calcium Level 8.3L, Phosphorus Level 3.2, Magnesium Level 2.3, Total Bilirubin 0.7, Aspartate Amino Transf (AST/SGOT) 19, Alanine Aminotransferase (ALT/SGPT) 11L, Alkaline Phosphatase 128H, Troponin I 0.100H, C-Reactive Protein, Quantitative 20.4H, Pro-B-Type Natriuretic Peptide > 66545L, Total Protein 7.1, Albumin 2.1L, Globulin 5.0, Albumin/Globulin Ratio 0.4L Height (Feet): 5 Height (Inches): 5.00 Weight (Pounds): 132 Neck: supple Cardiovascular: normal rate Respiratory/Chest: decreased breath sounds Abdomen: soft Viktor García MD Mar 21, 2019 20:53
[2019-03-21] MEDS: Cefepime HCl 500 MG in D5W 55 ML IV SCH (20:54)
[2019-03-21] MEDS: Epoetin Alfa-EPBX(ESRD on dialysis)3000 units/ml vial SUBQ SCH (20:55)
[2019-03-21] MEDS: Epoetin Alfa-EPBX(ESRD on dialysis)4000 units/ml vial SUBQ SCH (20:55)
[2019-03-22] VITALS: BP 112/55
[2019-03-22] MEDS: Albuterol/Ipratropium 3ml neb HHN SCH ×4 (00:40→18:47)
[2019-03-22 04:00] VITALS: BP 114/50
--- NOTE | 2019-03-22 07:15 | NUR ---
NURSE NOTES: Received patient from MARIELA Triplett. Patient is aox1, and confused. Patient is on bipap as ordered and tolerating well. No reports of arrhythmias from previous shift. Pt has R AC 18g and R hand 20g flushing and patent. Bed in lowest position, alarmed and locked. Will continue to monitor.
--- NOTE | 2019-03-22 07:20 | NUR ---
RESPIRATORY NOTE: PT RECEIVED STABLE ON BIPAP: 15/, RATE OF 16, 70% FIO2. ALARMS ARE ON AND AUDIBLE. NO S/S OF RESPIRATORY DISTRESS NOTED AT THIS TIME. HHN TX TOLERATED WELL. BIPAP CIRCUIT AND MASK SECURE AND OUT OF THE WAY. WILL CONTINUE TO CLOSELY MONITOR.
--- NOTE | 2019-03-22 07:22 | NUR ---
HAND-OFF: Report given to Nura SIERRA. Pt remains stable.
--- NOTE | 2019-03-22 07:56 | General Progress Note ---
Assessment/Plan Assessment/Plan: Assessment/Plan Assessment/Plan: Assessment - Failed swallow, aspiration risk - resp failure - still too high a risk for EGD - NSTEMI - thrombocytopenia - PNA - CAD - ESRD, HD - OBS - Poor prognosis Recommendations - Pulmonary f/u - follow resp parameters closely - no plans for PEG, unless intubated or trach placed - Family discussion - consider comfort measures / terminal care Subjective ROS Limited/Unobtainable: No Allergies: Coded Allergies: No Known Allergies (Unverified , 05/25/13) Objective Last 24 Hour Vital Signs Date Time Temp Pulse Resp B/P (MAP) Pulse Ox O2 Delivery O2 Flow Rate FiO2 03/22/19 07:20 94 Bi-Pap 70 03/22/19 07:20 76 42 94 Facial 70 75 45 94 Bi-Pap 03/22/19 06:00 114/50 03/22/19 04:54 75 34 94 Facial 70 03/22/19 04:24 72 26 98 Bi-Pap 70 03/22/19 04:00 30 03/22/19 04:00 79 03/22/19 04:00 98.0 76 21 114/50 (71) 99 03/22/19 04:00 Bi-pap 03/22/19 02:54 81 32 96 Facial 70 03/22/19 00:40 72 30 97 Facial 60 75 30 98 Bi-Pap 60 03/22/19 00:00 97.8 72 23 112/55 (74) 99 03/22/19 00:00 Bi-pap 03/22/19 00:00 73 03/22/19 00:00 30 03/21/19 23:24 71 26 99 Facial 60 03/21/19 22:00 115/44 03/21/19 21:04 71 28 95 Facial 70 03/21/19 20:40 70 110/73 03/21/19 20:00 Bi-pap 03/21/19 20:00 67 03/21/19 20:00 30 03/21/19 20:00 97.4 71 22 139/78 (98) 98 03/21/19 19:01 99 Bi-Pap 70 03/21/19 18:52 68 27 97 Full Face 70 68 30 99 Bi-Pap 70 03/21/19 17:00 63 28 94 Full Face 80 03/21/19 16:00 30 03/21/19 16:00 64 03/21/19 16:00 Bi-pap 03/21/19 16:00 96.7 65 23 97/46 (63) 97 03/21/19 15:24 86 24 92 Full Face 80 03/21/19 14:30 119/46 03/21/19 13:05 65 22 90 03/21/19 13:00 89 30 88 Full Face 80 03/21/19 12:45 100 03/21/19 12:00 97.8 65 22 119/46 (70) 90 03/21/19 12:00 Bi-pap 03/21/19 12:00 64 03/21/19 08:00 Bi-pap 03/21/19 08:00 65 03/21/19 08:00 15.0 03/21/19 08:00 98.0 64 18 129/51 (77) 92 Intake and Output 03/21/19 03/22/19 19:00 07:00 Intake Total 1180 ml 415 ml Balance 1180 ml 415 ml IV Total 180 ml 415 ml Hemodialysis 1000 ml # Bowel Movements 1 Height (Feet): 5 Height (Inches): 5.00 Weight (Pounds): 130 General Appearance: lethargic EENT: normal ENT inspection Neck: supple Cardiovascular: normal rate Respiratory/Chest: decreased breath sounds Abdomen: normal bowel sounds, non tender, soft Extremities: non-tender Markell Brownlee MD Mar 22, 2019 07:56
[2019-03-22 08:00] VITALS: BP 110/45
[2019-03-22] MEDS: Docusate 100mg cap ORAL SCH ×3 (09:00→18:00)
[2019-03-22] MEDS: Renvela 800mg Pkt NG SCH ×3 (09:00→18:00)
[2019-03-22] MEDS: Aspirin Baby 81mg NG SCH (09:00)
[2019-03-22] MEDS: Eliquis 2.5mg tablet ORAL SCH ×2 (09:00→18:00)
[2019-03-22] MEDS: Flonase Nasal Inhaler 16gm NASAL SCH (09:31)
[2019-03-22 11:22] VITALS: BP 112/49
--- NOTE | 2019-03-22 11:54 | Nephrology Progress Note ---
Assessment/Plan Problem List: (1) ESRD (end stage renal disease) on dialysis (2) Cardiomyopathy (3) NSTEMI (non-ST elevated myocardial infarction) Assessment: Troponin lowering (4) Acute respiratory failure with hypoxia and hypercapnia Assessment ESRD- HTN Anemia DM CAD- Cardiomyopathy s/p SEPSIS MN Plan recent 2D echo 40% EjFx Pulm Toilet and support HD 03/19 next 03/21 Keep BP in check - Hold bp meds for now due to low BP Albumin bolus ASA Nitrate per consultants per orders ? need for PEG as NGt always pulled out ? discussed with Dr Cornelius and Estelita Subjective ROS Limited/Unobtainable: No Constitutional: Reports: malaise Objective Objective Last 24 Hour Vital Signs Date Time Temp Pulse Resp B/P (MAP) Pulse Ox O2 Delivery O2 Flow Rate FiO2 03/22/19 11:22 98.4 81 35 112/49 (70) 93 03/22/19 10:40 79 42 94 Facial 70 03/22/19 09:24 92 40 92 Facial 70 03/22/19 08:00 87 03/22/19 08:00 30 03/22/19 08:00 Bi-pap 03/22/19 08:00 98.1 76 16 110/45 (66) 93 03/22/19 07:20 94 Bi-Pap 70 03/22/19 07:20 76 42 94 Facial 70 75 45 94 Bi-Pap 03/22/19 06:00 114/50 03/22/19 04:54 75 34 94 Facial 70 03/22/19 04:24 72 26 98 Bi-Pap 70 03/22/19 04:00 30 03/22/19 04:00 79 03/22/19 04:00 98.0 76 21 114/50 (71) 99 03/22/19 04:00 Bi-pap 03/22/19 02:54 81 32 96 Facial 70 03/22/19 00:40 72 30 97 Facial 60 75 30 98 Bi-Pap 60 03/22/19 00:00 97.8 72 23 112/55 (74) 99 03/22/19 00:00 Bi-pap 03/22/19 00:00 73 03/22/19 00:00 30 03/21/19 23:24 71 26 99 Facial 60 03/21/19 22:00 115/44 03/21/19 21:04 71 28 95 Facial 70 03/21/19 20:40 70 110/73 03/21/19 20:00 Bi-pap 03/21/19 20:00 67 03/21/19 20:00 30 03/21/19 20:00 97.4 71 22 139/78 (98) 98 03/21/19 19:01 99 Bi-Pap 70 03/21/19 18:52 68 27 97 Full Face 70 68 30 99 Bi-Pap 70 03/21/19 17:00 63 28 94 Full Face 80 03/21/19 16:00 30 03/21/19 16:00 64 03/21/19 16:00 Bi-pap 03/21/19 16:00 96.7 65 23 97/46 (63) 97 03/21/19 15:24 86 24 92 Full Face 80 03/21/19 14:30 119/46 03/21/19 13:05 65 22 90 03/21/19 13:00 89 30 88 Full Face 80 03/21/19 12:45 100 03/21/19 12:00 97.8 65 22 119/46 (70) 90 03/21/19 12:00 Bi-pap 03/21/19 12:00 64 Intake and Output 03/21/19 03/22/19 19:00 07:00 Intake Total 1180 ml 415 ml Balance 1180 ml 415 ml IV Total 180 ml 415 ml Hemodialysis 1000 ml # Bowel Movements 1 Height (Feet): 5 Height (Inches): 5.00 Weight (Pounds): 130 General Appearance: no apparent distress EENT: other - BIPAP Cardiovascular: tachycardia Respiratory/Chest: decreased breath sounds Abdomen: distended Objective no change Mikey Brandt MD Mar 22, 2019 11:54
[2019-03-22] MEDS ORDERED: Tubing IV Secondary IV ONE ×2 (13:18→13:26)
--- NOTE | 2019-03-22 14:51 | Cardiac Electrophysiology PN ---
Assessment/Plan Assessment/Plan 1. Troponin elevation due to renal failure. Troponin peak is 3.5 that is coming down to 1.88. Confused in restraints. No CP or SOB. EKG no acute changes. EF 40 % On aspirin, Coreg 3.125 bid and Lipitor. Treat medically 2. Cardiomyopathy with EF of 40%. BNP is more than 35,000. Echo on 02/02/2019 showed EF of 55% to 60%, repeat echo showed EF 40%. On Coreg, Lisinopril 10 daily and HD 3. On Eliquis for CVA and PVD. No Fib or DVT or PE 4. End-stage renal disease, on hemodialysis. 5. Lactic acidosis. 6. Hyperlipidemia, on Lipitor. 7. Dysphagia. Family refused PEG or NG tube feeding 8. Respiratory failure on BIPAP. SEB RN Subjective Subjective On Face Mask. No events. RN at bedside Objective Last 24 Hour Vital Signs Date Time Temp Pulse Resp B/P (MAP) Pulse Ox O2 Delivery O2 Flow Rate FiO2 03/22/19 13:43 83 40 92 Facial 70 85 39 98 Bi-Pap 03/22/19 12:53 82 44 97 Facial 70 03/22/19 12:00 81 03/22/19 11:22 98.4 81 35 112/49 (70) 93 03/22/19 10:40 79 42 94 Facial 70 03/22/19 09:24 92 40 92 Facial 70 03/22/19 08:00 87 03/22/19 08:00 30 03/22/19 08:00 Bi-pap 03/22/19 08:00 98.1 76 16 110/45 (66) 93 03/22/19 07:20 94 Bi-Pap 70 03/22/19 07:20 76 42 94 Facial 70 75 45 94 Bi-Pap 03/22/19 06:00 114/50 03/22/19 04:54 75 34 94 Facial 70 03/22/19 04:24 72 26 98 Bi-Pap 70 03/22/19 04:00 30 03/22/19 04:00 79 03/22/19 04:00 98.0 76 21 114/50 (71) 99 03/22/19 04:00 Bi-pap 03/22/19 02:54 81 32 96 Facial 70 03/22/19 00:40 72 30 97 Facial 60 75 30 98 Bi-Pap 60 03/22/19 00:00 97.8 72 23 112/55 (74) 99 03/22/19 00:00 Bi-pap 03/22/19 00:00 73 03/22/19 00:00 30 03/21/19 23:24 71 26 99 Facial 60 03/21/19 22:00 115/44 03/21/19 21:04 71 28 95 Facial 70 03/21/19 20:40 70 110/73 03/21/19 20:00 Bi-pap 03/21/19 20:00 67 03/21/19 20:00 30 03/21/19 20:00 97.4 71 22 139/78 (98) 98 03/21/19 19:01 99 Bi-Pap 70 03/21/19 18:52 68 27 97 Full Face 70 68 30 99 Bi-Pap 70 03/21/19 17:00 63 28 94 Full Face 80 03/21/19 16:00 30 03/21/19 16:00 64 03/21/19 16:00 Bi-pap 03/21/19 16:00 96.7 65 23 97/46 (63) 97 03/21/19 15:24 86 24 92 Full Face 80 Intake and Output 03/21/19 03/22/19 19:00 07:00 Intake Total 1180 ml 415 ml Balance 1180 ml 415 ml IV Total 180 ml 415 ml Hemodialysis 1000 ml # Bowel Movements 1 Microbiology Date/Time Source Procedure Growth Status 03/19/19 19:00 Sputum Induced Gram Stain - Final Complete 03/19/19 19:00 Sputum Culture - Final Anabelle Albicans Usual Respiratory Bonita Complete Objective HEAD AND NECK: No JVD. BIPAP on LUNGS: Clear. CARDIOVASCULAR: Regular S1 and S2 with no gallop or murmur. ABDOMEN: Soft. EXTREMITIES: No pitting edema. Dialysis access in the left arm. Dariel Corcoran MD Mar 22, 2019 14:51
[2019-03-22] MEDS: Nitroglycerin Patch 0.4mg TDERMAL SCH (15:13)
--- NOTE | 2019-03-22 15:30 | NUR ---
P.T. NOTES ADDENDUM S/P: APPROACHED PATIENT'S ROOM IN THE PM. PATIENT, ON HOLD PER RN. SECONDARY TO PATIENT'S ON BIPAP MACHINE. WILL F/U NEXT TX. TIME. RSABADO.
--- NOTE | 2019-03-22 15:31 | NUR ---
RESPIRATORY NOTE: Received pt on BiPAP 10/10, back up rate 16, 70%. Pt is on a Facial mask, skin intact, no redness/breakdowns noted. Foam tape applied on pt's nosebridge/cheeks/chin to prevent mask irritations. Pt awake/disoriented. B/S lele. rales/rhonchi, nonproductive cough. BiPAP plugged into red outlet, alarms on & audible. Pt in no apparent distress at this time. Will continue plan of care.
[2019-03-22 15:51] VITALS: BP 123/52
[2019-03-22] MEDS: Dextrose 10% 1,000 ML IV SCH (16:38)
--- NOTE | 2019-03-22 19:25 | NUR ---
NURSE NOTES: Pt report received from ESTEVAN SIERRA. pt remains stable. pt is alert and oriented times 1. pt is on BIPAP, able to sat at 95%. pt is on enterprise account executive showing NSR , no acute cardiac distress noted. pt bed is low, locked, armed, bed rails up times 3, call light within reach. will follow plan of care.
--- NOTE | 2019-03-22 19:30 | NUR ---
HAND-OFF: Report given to MARIELA Triplett. Patient in stable condition. Endorsed care.
[2019-03-22 20:00] VITALS: BP 105/58
[2019-03-22] MEDS: Atorvastatin 20mg tab NG SCH (21:00)
[2019-03-22] MEDS: Tamsulosin 0.4mg cap ORAL SCH (21:00)
--- NOTE | 2019-03-22 21:13 | NUR ---
NURSE NOTES: called MD LOVELACE to state that pt is on BIPAP, but has PO meds due. RN also asked MD if he would like to switch route of medication administration or possibly switch BIPAP/ O2 order to give PO meds. RN stated that pt needs BIPAP and should not take it off due to risk of de-sating and further complications. MD Lovelace is fully aware of pts condition and situation. stated to follow up with MD Chowdhury. will follow orders. will continue to monitor. Addendum: 03/22/19 at 2119 by KAYLA REILLY RN NURSE NOTES: called MD LOVELACE to state that pt is on BIPAP, but has PO meds due. RN also asked MD if he would like to switch route of medication administration or possibly switch BIPAP/ O2 order to give PO meds. RN stated that pt needs BIPAP and should not take it off due to risk of de-sating and further complications. MD Lovelace is fully aware of pts condition and situation. stated to follow up with MD Cornelius. will follow orders. will continue to monitor.
--- NOTE | 2019-03-22 21:25 | NUR ---
NURSE NOTES: SPOKE with MD SMITH who answered for MD VIEIRA urgent line. stated that pt has been on BIPAP continuos since rapid response yesterday, also, pt has PO meds due (but pt is still on BIPAP). stated that Pt needs BIPAP on continuously to prevent de sating or further complications. i asked MD if he would like to switch the pt off BIPAP or possibly switch different route of PO medications admin. MD smith ordered ABGs, also stated, "If ABGs, especially PH is good, start decreasing FIO2 on BIPAP to see if pt can tolerate. Titrate FIO2 to RTs discretion." will follow order. will continue to monitor pt. pt remains stable.
--- NOTE | 2019-03-22 21:45 | NUR ---
NURSE NOTES: Pt O2 Sat from ABG shows 85.3. RT now increased BIPAP FIO2 from 75 to 80 Percent. pt remains stable. will continue to monitor. will keep BIPAP on to prevent further compromise.
--- NOTE | 2019-03-22 21:50 | NUR ---
NURSE NOTES: Pt PO meds on hold due to Pt on continuous BIPAP and Pt is NPO. MD sun aware. MD LOVELACE aware.
[2019-03-22] MEDS: Cefepime HCl 500 MG in D5W 55 ML IV SCH (21:55)
--- NOTE | 2019-03-22 22:14 | Pulmonology Progress Note ---
Assessment/Plan Assessment/Plan Assessment/Plan ASSESSMENT: The patient is an 83-year-old male with a history of prior CVA, end -stage renal disease, on dialysis, hypertension, hyperlipidemia, CAD, CVA, and BPH presenting with dizziness and [id number] TN. He is fairly stable from a respiratory standpoint. PROBLEM LIST: 1. Non ST-elevation myocardial infarction. 2. Recent pneumonia. 3. Dizziness. 4. End-stage renal disease, on dialysis. 5. CAD. 6. Hypertension. 7. Hyperlipidemia. 8. Anemia. 9. Diabetes. TREATMENT PLAN: NO escalation, no ICU transfer Optimize pulmonary hygiene/mobilize as tolerated. Continue BiPAP for now, not toelrating it being removed Titrate O2 HHN's Abx: Cefepime per ID Follow up Cardiology recommendations, medical management of non-STEMI. AC held 2/2 thrombocytopenia Monitor volumes and renal function, dialysis per Vangie/UF as tolerated DNAR/DNI Subjective ROS Limited/Unobtainable: Yes Allergies: Coded Allergies: No Known Allergies (Unverified , 05/25/13) Subjective awake confused remains on bipap 158 80% TV around 350 mild distress does not follow commands positive secretions Objective Last 24 Hour Vital Signs Date Time Temp Pulse Resp B/P (MAP) Pulse Ox O2 Delivery O2 Flow Rate FiO2 03/22/19 21:50 108/67 03/22/19 21:00 75 106/65 03/22/19 20:42 84 35 91 Facial 70 03/22/19 19:04 93 Bi-Pap 70 03/22/19 18:47 81 31 93 Facial 70 83 34 96 Bi-Pap 03/22/19 17:11 80 39 95 Facial 70 03/22/19 16:00 30 03/22/19 16:00 82 03/22/19 16:00 Bi-pap 03/22/19 15:51 98.1 84 30 123/52 (75) 92 03/22/19 15:28 81 26 95 Facial 70 03/22/19 15:13 112/49 03/22/19 13:43 83 40 92 Facial 70 85 39 98 Bi-Pap 03/22/19 12:53 82 44 97 Facial 70 03/22/19 12:00 81 03/22/19 12:00 30 03/22/19 12:00 Bi-pap 03/22/19 11:22 98.4 81 35 112/49 (70) 93 03/22/19 10:40 79 42 94 Facial 70 03/22/19 09:24 92 40 92 Facial 70 03/22/19 08:00 87 03/22/19 08:00 30 03/22/19 08:00 Bi-pap 03/22/19 08:00 98.1 76 16 110/45 (66) 93 03/22/19 07:20 94 Bi-Pap 70 03/22/19 07:20 76 42 94 Facial 70 75 45 94 Bi-Pap 03/22/19 06:00 114/50 03/22/19 04:54 75 34 94 Facial 70 03/22/19 04:24 72 26 98 Bi-Pap 70 03/22/19 04:00 30 03/22/19 04:00 79 03/22/19 04:00 98.0 76 21 114/50 (71) 99 03/22/19 04:00 Bi-pap 03/22/19 02:54 81 32 96 Facial 70 03/22/19 00:40 72 30 97 Facial 60 75 30 98 Bi-Pap 60 03/22/19 00:00 97.8 72 23 112/55 (74) 99 03/22/19 00:00 Bi-pap 03/22/19 00:00 73 03/22/19 00:00 30 03/21/19 23:24 71 26 99 Facial 60 Intake and Output 03/21/19 03/22/19 19:00 07:00 Intake Total 1180 ml 420 ml Balance 1180 ml 420 ml IV Total 180 ml 420 ml Hemodialysis 1000 ml # Bowel Movements 1 General Appearance: cachetic Respiratory/Chest: crackles/rales, rhonchi Cardiovascular: tachycardia, murmur systolic, edema Abdomen: soft, non tender, no organomegaly Neurologic/Psychiatric: alert, disoriented Laboratory Tests 03/22/19 21:30: Arterial Blood pH 7.371, Arterial Blood Partial Pressure CO2 53.7H, Arterial Blood Partial Pressure O2 56.3L, Arterial Blood HCO3 30.4H, Arterial Blood Oxygen Saturation 86.3*L, Arterial Blood Base Excess 4.3H, Wyatt Test Positive Current Medications Medications (Trade) Dose Ordered Sig/Stephany Route PRN Reason Start Time Stop Time Status Last Admin Dose Admin Acetaminophen (Tylenol) 650 mg Q6H PRN ORAL Mild Pain/Temp > 100.5 03/09/19 07:01 04/07/19 07:00 03/10/19 03:10 Albuterol/ Ipratropium (Albuterol/ Ipratropium) 3 ml Q4H PRN HHN Shortness of Breath 03/20/19 15:15 03/25/19 15:14 Albuterol/ Ipratropium (Albuterol/ Ipratropium) 3 ml Q6HRT HHN 03/20/19 19:00 03/25/19 18:59 03/22/19 18:47 Apixaban (Eliquis) 2.5 mg BID ORAL 03/21/19 09:00 04/20/19 08:59 Aspirin (ASA) 81 mg DAILY NG 03/16/19 09:00 04/07/19 08:59 03/16/19 08:19 Atorvastatin Calcium (Lipitor) 20 mg BEDTIME NG 03/15/19 21:00 04/07/19 20:59 03/15/19 21:04 Carvedilol (Coreg) 3.125 mg EVERY 12 HOURS NG 03/15/19 21:00 04/09/19 20:59 03/16/19 08:19 Cefepime HCl 500 mg/Dextrose 55 ml @ 110 mls/hr Q24H IV 03/19/19 21:00 03/26/19 20:59 03/22/19 21:55 Clonidine HCl (Catapres Tab) 0.1 mg Q8H PRN SL For High Blood Pressure 03/11/19 20:00 04/10/19 19:59 Dextrose 1,000 ml @ 30 mls/hr Q24H IV 03/09/19 14:07 04/08/19 14:06 03/22/19 16:38 Dextrose (Dextrose 50%) 25 ml Q30M PRN IV Hypoglycemia 03/09/19 07:00 04/07/19 06:59 Dextrose (Dextrose 50%) 50 ml Q30M PRN IV Hypoglycemia 03/09/19 07:00 04/07/19 06:59 Docusate Sodium (Colace) 100 mg THREE TIMES A DAY ORAL 03/21/19 13:00 04/20/19 12:59 Epoetin Best (Epoetin Best(ESRD on dialysis)) 3,000 unit SUBQ 03/17/19 21:00 04/16/19 20:59 03/21/19 20:55 Epoetin Best (Epoetin Best(ESRD on dialysis)) 4,000 unit SUBQ 03/17/19 21:00 04/16/19 20:59 03/21/19 20:55 Finasteride (Proscar) 5 mg DAILY ORAL 03/16/19 09:00 04/07/19 08:59 03/16/19 08:11 Fluticasone Propionate (Flonase) 2 spray DAILY NASAL 03/09/19 09:00 04/07/19 08:59 03/22/19 09:31 Guaifenesin/ Codeine Phosphate (Robitussin with codeine) 5 ml Q4H PRN ORAL For Cough 03/09/19 07:00 04/07/19 06:59 03/10/19 03:09 Hydralazine HCl (Apresoline) 25 mg Q4H PRN NG bp over 160 syst 03/15/19 19:03 04/07/19 07:02 Isosorbide Dinitrate (Isordil) 10 mg Q8HR ORAL 03/21/19 14:00 04/20/19 13:59 Nitroglycerin (Ntg) 1 patch Q24H TDERMAL 03/09/19 14:30 04/08/19 14:29 03/22/19 15:13 Ondansetron HCl (Zofran) 4 mg Q4H PRN IVP Nausea & Vomiting 03/09/19 07:03 04/08/19 07:02 03/10/19 03:09 Pantoprazole (Protonix) 40 mg EVERY 12 HOURS ORAL 03/21/19 21:00 04/20/19 20:59 Risperidone (RisperDAL) 1 mg BEDTIME NG 03/15/19 21:00 04/11/19 20:59 03/15/19 21:04 Sevelamer Carbonate (Renvela) 1,600 mg THREE TIMES A DAY NG 03/15/19 18:00 04/14/19 17:59 03/16/19 17:26 Tamsulosin HCl (Flomax) 0.4 mg BEDTIME ORAL 03/09/19 21:00 04/07/19 20:59 03/15/19 21:04 Moraima Stone DO Mar 22, 2019 22:14
--- NOTE | 2019-03-22 23:45 | Progress Note ---
DATE: 03/22/2019 SUBJECTIVE: The patient is calmer, much more manageable, still confused, and not able to be engaged during the evaluation. He is having severe cognitive impairment. MENTAL STATUS EXAMINATION: The patient is on BiPAP, confused, and disoriented. Mood is less anxious. Affect is flat. Thought process is concrete. Thought content, no suicidal or homicidal ideation. Cognition is impaired. Insight and judgment is impaired. ASSESSMENT: 1. 2. Acute encephalopathy. PLAN: 1. We will continue on current psychotropic medication. 2. We will continue to follow and readjust the medication. Zi Carrera M.D. DR: NILA JOB#: [id number] CC:
[2019-03-23] VITALS: BP 100/47
--- NOTE | 2019-03-23 00:03 | General Progress Note ---
Assessment/Plan Assessment/Plan: respiratory failure aspiration risk NSTEMI renal failure diabeters persistent hypoglycemia ho pneumonia ho elevated lactic acid htn hld thrombocytopenia bipap consider changing to hi jakub defer to pulmonary aggressive pulmonaryhygiene, followed by Dr Adryan nichole noted , pos aspirate heme eval apprecaiated aspiration precutions\pulmonary hygiene echo noted, decreaed EF endo eval appreciated dialysis dependent abx per ID dw Dr Burk, on eliquis due to previous stroke paf dvt and ulcer prophylaxis dw family they dont want aggressive measure want him to be comfortable DNR DNI, they dont want tube feeds no intubation palliative measures polar dillws our Subjective Allergies: Coded Allergies: No Known Allergies (Unverified , 05/25/13) Subjective my note reflects patient visit on 03/22 on bipap, opens eyes, family doesnt wnt ng feeding want to purse comfort measures Objective Last 24 Hour Vital Signs Date Time Temp Pulse Resp B/P (MAP) Pulse Ox O2 Delivery O2 Flow Rate FiO2 03/22/19 22:52 82 35 93 Facial 80 03/22/19 21:50 108/67 03/22/19 21:00 75 106/65 03/22/19 20:42 84 35 91 Facial 70 03/22/19 19:04 93 Bi-Pap 70 03/22/19 18:47 81 31 93 Facial 70 83 34 96 Bi-Pap 03/22/19 17:11 80 39 95 Facial 70 03/22/19 16:00 30 03/22/19 16:00 82 03/22/19 16:00 Bi-pap 03/22/19 15:51 98.1 84 30 123/52 (75) 92 03/22/19 15:28 81 26 95 Facial 70 03/22/19 15:13 112/49 03/22/19 13:43 83 40 92 Facial 70 85 39 98 Bi-Pap 03/22/19 12:53 82 44 97 Facial 70 03/22/19 12:00 81 03/22/19 12:00 30 03/22/19 12:00 Bi-pap 03/22/19 11:22 98.4 81 35 112/49 (70) 93 03/22/19 10:40 79 42 94 Facial 70 03/22/19 09:24 92 40 92 Facial 70 03/22/19 08:00 87 03/22/19 08:00 30 03/22/19 08:00 Bi-pap 03/22/19 08:00 98.1 76 16 110/45 (66) 93 03/22/19 07:20 94 Bi-Pap 70 03/22/19 07:20 76 42 94 Facial 70 75 45 94 Bi-Pap 03/22/19 06:00 114/50 03/22/19 04:54 75 34 94 Facial 70 03/22/19 04:24 72 26 98 Bi-Pap 70 03/22/19 04:00 30 03/22/19 04:00 79 03/22/19 04:00 98.0 76 21 114/50 (71) 99 03/22/19 04:00 Bi-pap 03/22/19 02:54 81 32 96 Facial 70 03/22/19 00:40 72 30 97 Facial 60 75 30 98 Bi-Pap 60 Intake and Output 03/22/19 03/23/19 19:00 07:00 Intake Total 356 ml Balance 356 ml IV Total 356 ml # Bowel Movements 3 Laboratory Tests 03/22/19 21:30: Arterial Blood pH 7.371, Arterial Blood Partial Pressure CO2 53.7H, Arterial Blood Partial Pressure O2 56.3L, Arterial Blood HCO3 30.4H, Arterial Blood Oxygen Saturation 86.3*L, Arterial Blood Base Excess 4.3H, Wyatt Test Positive Height (Feet): 5 Height (Inches): 5.00 Weight (Pounds): 130 Neck: supple Cardiovascular: normal rate Respiratory/Chest: decreased breath sounds Viktor García MD Mar 23, 2019 00:03
[2019-03-23] MEDS: Albuterol/Ipratropium 3ml neb HHN SCH ×4 (00:45→20:12)
--- NOTE | 2019-03-23 01:46 | NUR ---
NURSE NOTES: Called MD sun urgent line to report pts respirations at 35-38. BP 109/56, O2 94%, HR 71. temp AUX 97.8 awaiting MD call back.
--- NOTE | 2019-03-23 01:52 | NUR ---
NURSE NOTES: Called MD LOVELACE to report increased respirations that are 34-35. other vital signs stable and that pts BIPAP setting now are 15/8 100% FIO2. stated to contact RENA MEHTA. will follow orders.
--- NOTE | 2019-03-23 01:58 | NUR ---
NURSE NOTES: Spoke with Kyler Rodriguez reported pts current vital signs, BP 109/ 60, HR 93, TEMP AUX 97.9F. with an exaggeration on Pts respirations now at 34- 35 with BIPAP 15/8 100% FIO2. stated no new order. also understands pts ABG from 03/22/19 noc shift. will continue to monitor.
[2019-03-23 04:00] VITALS: BP 118/53
[2019-03-23 04:40] LABS: HEMATOCRIT 30.5 % (42.0-52.0); HEMOGLOBIN 9.7 G/DL (14.2-18.0); MEAN CORPUSCULAR VOLUME 98 FL (80-99); PLATELET COUNT 226 K/UL (150-450); RED CELL DISTRIBUTION WIDTH 15.2 % (11.6-14.8); WHITE BLOOD COUNT 20.8 K/UL (4.8-10.8)
[2019-03-23 05:06] LABS: ALANINE AMINOTRANSFERASE 11 U/L (12-78); ALBUMIN 2.2 G/DL (3.4-5.0); ALBUMIN/GLOBULIN RATIO 0.4 (1.0-2.7); ALKALINE PHOSPHATASE 130 U/L (46-116); ANION GAP 11 mmol/L (5-15); ASPARTATE AMINO TRANSFERASE 20 U/L (15-37); BILIRUBIN,TOTAL 0.7 MG/DL (0.2-1.0); BLOOD UREA NITROGEN 60 mg/dL (7-18); CALCIUM 8.9 MG/DL (8.5-10.1); CARBON DIOXIDE 30 MMOL/L (21-32); CHLORIDE 103 MMOL/L (98-107); CREATININE 7.1 MG/DL (0.55-1.30); PHOSPHORUS 4.3 MG/DL (2.5-4.9); POTASSIUM 4.2 MMOL/L (3.5-5.1); SODIUM 144 MMOL/L (136-145)
--- NOTE | 2019-03-23 07:15 | NUR ---
NURSE NOTES: Received patient from MARIELA Triplett. Patient is resting in bed. Patient is aox0, and confused. Patient is on bipap as ordered and tolerating well. No reports of cardiac dysrhythmias reported from previous shift. Patient has a R hand 22g patent and running D10W @ 30ml/hr. Patient has bilateral wrist restraints and peripheral pulses palpable bilaterally, and skin is intact. Bed is locked, alarmed and in lowest position. Side rails x3, and call light within reach. Will continue to monitor.
--- NOTE | 2019-03-23 07:19 | NUR ---
HAND-OFF: Report given to .ESTEVAN RN, Pt remains stable.
--- NOTE | 2019-03-23 07:31 | General Progress Note ---
Assessment/Plan Assessment/Plan: Assessment/Plan Assessment/Plan: Assessment - Failed swallow, aspiration risk - resp failure - still too high a risk for EGD - NSTEMI - thrombocytopenia - PNA - CAD - ESRD, HD - OBS - Poor prognosis Recommendations - Pulmonary f/u - follow resp parameters closely - no plans for PEG, unless intubated or trach placed - Family discussion - consider comfort measures / terminal care Subjective ROS Limited/Unobtainable: No Allergies: Coded Allergies: No Known Allergies (Unverified , 05/25/13) Objective Last 24 Hour Vital Signs Date Time Temp Pulse Resp B/P (MAP) Pulse Ox O2 Delivery O2 Flow Rate FiO2 03/23/19 05:02 115/69 03/23/19 04:45 80 39 97 Facial 80 03/23/19 04:00 Bi-pap 03/23/19 04:00 98.3 75 38 118/53 (74) 94 03/23/19 04:00 82 03/23/19 04:00 100 03/23/19 02:42 81 35 98 Facial 100 03/23/19 00:45 78 34 95 Facial 80 81 34 97 Bi-Pap 03/23/19 00:00 98.1 91 28 100/47 (64) 94 03/23/19 00:00 Bi-pap 03/23/19 00:00 30 03/23/19 00:00 81 03/22/19 22:52 82 35 93 Facial 80 03/22/19 21:50 108/67 03/22/19 21:00 75 106/65 03/22/19 20:42 84 35 91 Facial 70 03/22/19 20:00 97.7 87 29 105/58 (74) 94 03/22/19 20:00 87 03/22/19 20:00 30 03/22/19 20:00 Bi-pap 03/22/19 19:04 93 Bi-Pap 70 03/22/19 18:47 81 31 93 Facial 70 83 34 96 Bi-Pap 03/22/19 17:11 80 39 95 Facial 70 03/22/19 16:00 30 03/22/19 16:00 82 03/22/19 16:00 Bi-pap 03/22/19 15:51 98.1 84 30 123/52 (75) 92 03/22/19 15:28 81 26 95 Facial 70 03/22/19 15:13 112/49 03/22/19 13:43 83 40 92 Facial 70 85 39 98 Bi-Pap 03/22/19 12:53 82 44 97 Facial 70 03/22/19 12:00 81 03/22/19 12:00 30 03/22/19 12:00 Bi-pap 03/22/19 11:22 98.4 81 35 112/49 (70) 93 03/22/19 10:40 79 42 94 Facial 70 03/22/19 09:24 92 40 92 Facial 70 03/22/19 08:00 87 03/22/19 08:00 30 03/22/19 08:00 Bi-pap 03/22/19 08:00 98.1 76 16 110/45 (66) 93 Intake and Output 03/22/19 03/23/19 19:00 07:00 Intake Total 386 ml 385 ml Balance 386 ml 385 ml IV Total 386 ml 385 ml # Bowel Movements 3 Laboratory Tests 03/22/19 21:30: Arterial Blood pH 7.371, Arterial Blood Partial Pressure CO2 53.7H, Arterial Blood Partial Pressure O2 56.3L, Arterial Blood HCO3 30.4H, Arterial Blood Oxygen Saturation 86.3*L, Arterial Blood Base Excess 4.3H, Wyatt Test Positive 03/23/19 03:25: White Blood Count 20.8H, Red Blood Count 3.10L, Hemoglobin 9.7L, Hematocrit 30.5L, Mean Corpuscular Volume 98, Mean Corpuscular Hemoglobin 31.3H, Mean Corpuscular Hemoglobin Concent 31.8L, Red Cell Distribution Width 15.2H, Platelet Count 226, Mean Platelet Volume 7.5, Neutrophils (%) (Auto) , Lymphocytes (%) (Auto) , Monocytes (%) (Auto) , Eosinophils (%) (Auto) , Basophils (%) (Auto) , Neutrophils % (Manual) [Pending], Lymphocytes % (Manual) [Pending], Platelet Estimate [Pending], Platelet Morphology [Pending], Sodium Level 144, Potassium Level 4.2, Chloride Level 103, Carbon Dioxide Level 30, Anion Gap 11, Blood Urea Nitrogen 60H, Creatinine 7.1H, Estimat Glomerular Filtration Rate , Glucose Level 199H, Uric Acid 7.0, Calcium Level 8.9, Phosphorus Level 4.3, Magnesium Level 2.6H, Total Bilirubin 0.7, Aspartate Amino Transf (AST/SGOT) 20, Alanine Aminotransferase (ALT/SGPT) 11L, Alkaline Phosphatase 130H, Troponin I 0.059H, C-Reactive Protein, Quantitative > 70.0H, Pro-B-Type Natriuretic Peptide > 85442U, Total Protein 7.3, Albumin 2.2L, Globulin 5.1, Albumin/Globulin Ratio 0.4L Height (Feet): 5 Height (Inches): 5.00 Weight (Pounds): 130 General Appearance: lethargic EENT: normal ENT inspection Neck: supple Cardiovascular: normal rate Respiratory/Chest: decreased breath sounds Abdomen: normal bowel sounds, non tender, soft Markell Brownlee MD Mar 23, 2019 07:31
[2019-03-23 08:00] VITALS: BP 114/56
--- NOTE | 2019-03-23 08:00 | NUR ---
NURSE NOTES: Pt elevated WBC of 20.8. Dr. García made aware. New orders given. Will carry out.
[2019-03-23] MEDS: Flonase Nasal Inhaler 16gm NASAL SCH (08:51)
[2019-03-23] MEDS: Aspirin Baby 81mg NG SCH (08:52)
[2019-03-23] MEDS: Eliquis 2.5mg tablet ORAL SCH ×2 (08:53→18:00)
[2019-03-23] MEDS: Renvela 800mg Pkt NG SCH ×3 (08:53→18:00)
[2019-03-23] MEDS: Docusate 100mg cap ORAL SCH ×3 (08:53→18:00)
--- NOTE | 2019-03-23 09:34 | Diagnostic Imaging Report ---
EXAM: XR Chest, 1 View CLINICAL HISTORY: [facility] – [place] TECHNIQUE: Frontal view of the chest. COMPARISON: Chest x-ray 03/17/19 FINDINGS: Lungs: Worsening consolidative opacities bilaterally. Pleural space: Unremarkable. No pneumothorax. Heart: Stable cardiomegaly. Mediastinum: Unremarkable. Bones/joints: Degenerative changes of the spine. Upper abdomen: Surgical clips right upper quadrant of the abdomen. IMPRESSION: Worsening consolidative opacities bilaterally.
--- NOTE | 2019-03-23 10:08 | Hematology/Onc Progress Note ---
Assessment/Plan Assessment/Plan Assessment and Recs: # Thrombocytopenia -- i have seen him in the past and reviewed platelet trend for the past 1-2 years and this is at an all time low, likely related to infection/reactive process --> plt trend 115-->87-->7-->58-->55-->75-->86-->150-->226 --> smear has been reviewed --> meds are noted --> dw pcp, will HOLD OFF ELIQUIS FOR NOW given also low H/H --> GIVEN PLATELET COUNT STABilizeD, restart eliquis # Anemia due to chronic disease -- hgb trending at 9-11 --> consider anemia panel, reviewed from prior admission --> does not require iron at this time --> hold off on iron --> hgb trend 10.7-->10-->8.1-->8.6-->8.1-->10-->9.7 --> EPOGEN HAS BEEN STARTED # Secondary hypercoagulable disorder, no afib, but has pvd and stroke ppx --> continue if plt >50k and h/h stable # ESRD (end stage renal disease) --> as per Neprho --> TTF --> reviewed Dr. Brandt recs # Hypotension --> fluids as needed # RLL on cxr --> on broad spectrum abx --> as per id # Diabetes --> a1c goal <8, iss, accuchecks # NSTEMI with elev trop may be due to esrd --> as per cards management, asa bb, lipitor # Dysphagia. Family refused PEG --> hold off peg # Respiratory failure on BIPAP. DNR now --> per pulm # Dvt ppx scds ++ eliquis since 03/21 Appreciate consultation and enrique RN Subjective Allergies: Coded Allergies: No Known Allergies (Unverified , 05/25/13) Subjective 03/18/19: remains confused, nonverbal, labs reviewed, meds noted 03/19: no plan for peg, code status unchanged, poor prognosis, labs noted, seen by psych 03/20: awake, no acute events, bipap, cefe, epogen 03/21: no major changes, labs noted, will begin anticoag, remains confused 03/23: worsening cxr, wbc 20.8, no acute events, on apixaban Objective Objective Current Medications Medications (Trade) Dose Ordered Sig/Stephany Route PRN Reason Start Time Stop Time Status Last Admin Dose Admin Acetaminophen (Tylenol) 650 mg Q6H PRN ORAL Mild Pain/Temp > 100.5 03/09/19 07:01 04/07/19 07:00 03/10/19 03:10 Albuterol/ Ipratropium (Albuterol/ Ipratropium) 3 ml Q4H PRN HHN Shortness of Breath 03/20/19 15:15 03/25/19 15:14 Albuterol/ Ipratropium (Albuterol/ Ipratropium) 3 ml Q6HRT HHN 03/20/19 19:00 03/25/19 18:59 03/23/19 07:38 Apixaban (Eliquis) 2.5 mg BID ORAL 03/21/19 09:00 04/20/19 08:59 Aspirin (ASA) 81 mg DAILY NG 03/16/19 09:00 04/07/19 08:59 03/16/19 08:19 Atorvastatin Calcium (Lipitor) 20 mg BEDTIME NG 03/15/19 21:00 04/07/19 20:59 03/15/19 21:04 Carvedilol (Coreg) 3.125 mg EVERY 12 HOURS NG 03/15/19 21:00 04/09/19 20:59 03/16/19 08:19 Cefepime HCl 500 mg/Dextrose 55 ml @ 110 mls/hr Q24H IV 03/19/19 21:00 03/26/19 20:59 03/22/19 21:55 Clonidine HCl (Catapres Tab) 0.1 mg Q8H PRN SL For High Blood Pressure 03/11/19 20:00 04/10/19 19:59 Dextrose 1,000 ml @ 30 mls/hr Q24H IV 03/09/19 14:07 04/08/19 14:06 03/22/19 16:38 Dextrose (Dextrose 50%) 25 ml Q30M PRN IV Hypoglycemia 03/09/19 07:00 04/07/19 06:59 Dextrose (Dextrose 50%) 50 ml Q30M PRN IV Hypoglycemia 03/09/19 07:00 04/07/19 06:59 Docusate Sodium (Colace) 100 mg THREE TIMES A DAY ORAL 03/21/19 13:00 04/20/19 12:59 Epoetin Best (Epoetin Best(ESRD on dialysis)) 3,000 unit SUN- SUBQ 03/17/19 21:00 04/16/19 20:59 03/21/19 20:55 Epoetin Best (Epoetin Best(ESRD on dialysis)) 4,000 unit SUBQ 03/17/19 21:00 04/16/19 20:59 03/21/19 20:55 Finasteride (Proscar) 5 mg DAILY ORAL 03/16/19 09:00 04/07/19 08:59 03/16/19 08:11 Fluticasone Propionate (Flonase) 2 spray DAILY NASAL 03/09/19 09:00 04/07/19 08:59 03/23/19 08:51 Guaifenesin/ Codeine Phosphate (Robitussin with codeine) 5 ml Q4H PRN ORAL For Cough 03/09/19 07:00 04/07/19 06:59 03/10/19 03:09 Hydralazine HCl (Apresoline) 25 mg Q4H PRN NG bp over 160 syst 03/15/19 19:03 04/07/19 07:02 Isosorbide Dinitrate (Isordil) 10 mg Q8HR ORAL 03/21/19 14:00 04/20/19 13:59 Nitroglycerin (Ntg) 1 patch Q24H TDERMAL 03/09/19 14:30 04/08/19 14:29 03/22/19 15:13 Ondansetron HCl (Zofran) 4 mg Q4H PRN IVP Nausea & Vomiting 03/09/19 07:03 04/08/19 07:02 03/10/19 03:09 Pantoprazole (Protonix) 40 mg EVERY 12 HOURS ORAL 03/21/19 21:00 04/20/19 20:59 Risperidone (RisperDAL) 1 mg BEDTIME NG 03/15/19 21:00 04/11/19 20:59 03/15/19 21:04 Sevelamer Carbonate (Renvela) 1,600 mg THREE TIMES A DAY NG 03/15/19 18:00 04/14/19 17:59 03/16/19 17:26 Tamsulosin HCl (Flomax) 0.4 mg BEDTIME ORAL 03/09/19 21:00 04/07/19 20:59 03/15/19 21:04 Last 24 Hour Vital Signs Date Time Temp Pulse Resp B/P (MAP) Pulse Ox O2 Delivery O2 Flow Rate FiO2 03/23/19 09:03 82 35 98 Facial 80 03/23/19 08:00 98.1 79 35 114/56 (75) 98 03/23/19 08:00 80 03/23/19 08:00 82 03/23/19 08:00 Bi-pap 03/23/19 07:30 79 32 99 Facial 80 80 32 99 Bi-Pap 03/23/19 07:30 99 Bi-Pap 80 03/23/19 05:02 115/69 03/23/19 04:45 80 39 97 Facial 80 03/23/19 04:00 Bi-pap 03/23/19 04:00 98.3 75 38 118/53 (74) 94 03/23/19 04:00 82 03/23/19 04:00 100 03/23/19 02:42 81 35 98 Facial 100 03/23/19 00:45 78 34 95 Facial 80 81 34 97 Bi-Pap 03/23/19 00:00 98.1 91 28 100/47 (64) 94 03/23/19 00:00 Bi-pap 03/23/19 00:00 30 03/23/19 00:00 81 03/22/19 22:52 82 35 93 Facial 80 03/22/19 21:50 108/67 03/22/19 21:00 75 106/65 03/22/19 20:42 84 35 91 Facial 70 03/22/19 20:00 97.7 87 29 105/58 (74) 94 03/22/19 20:00 87 03/22/19 20:00 30 03/22/19 20:00 Bi-pap 03/22/19 19:04 93 Bi-Pap 70 03/22/19 18:47 81 31 93 Facial 70 83 34 96 Bi-Pap 03/22/19 17:11 80 39 95 Facial 70 03/22/19 16:00 30 1/25/20 16:00 82 03/22/19 16:00 Bi-pap 03/22/19 15:51 98.1 84 30 123/52 (75) 92 03/22/19 15:28 81 26 95 Facial 70 03/22/19 15:13 112/49 03/22/19 13:43 83 40 92 Facial 70 85 39 98 Bi-Pap 03/22/19 12:53 82 44 97 Facial 70 03/22/19 12:00 81 03/22/19 12:00 30 03/22/19 12:00 Bi-pap 03/22/19 11:22 98.4 81 35 112/49 (70) 93 03/22/19 10:40 79 42 94 Facial 70 03/22/19 09:24 92 40 92 Facial 70 03/22/19 08:00 87 03/22/19 08:00 30 03/22/19 08:00 Bi-pap 03/22/19 08:00 98.1 76 16 110/45 (66) 93 03/22/19 07:20 94 Bi-Pap 70 03/22/19 07:20 76 42 94 Facial 70 75 45 94 Bi-Pap 03/22/19 06:00 114/50 03/22/19 04:54 75 34 94 Facial 70 03/22/19 04:24 72 26 98 Bi-Pap 70 03/22/19 04:00 30 03/22/19 04:00 79 03/22/19 04:00 98.0 76 21 114/50 (71) 99 03/22/19 04:00 Bi-pap 03/22/19 02:54 81 32 96 Facial 70 03/22/19 00:40 72 30 97 Facial 60 75 30 98 Bi-Pap 60 03/22/19 00:00 97.8 72 23 112/55 (74) 99 03/22/19 00:00 Bi-pap 03/22/19 00:00 73 03/22/19 00:00 30 03/21/19 23:24 71 26 99 Facial 60 03/21/19 22:00 115/44 03/21/19 21:04 71 28 95 Facial 70 03/21/19 20:40 70 110/73 03/21/19 20:00 Bi-pap 03/21/19 20:00 67 03/21/19 20:00 30 1/24/20 20:00 97.4 71 22 139/78 (98) 98 03/21/19 19:01 99 Bi-Pap 70 03/21/19 18:52 68 27 97 Full Face 70 68 30 99 Bi-Pap 70 03/21/19 17:00 63 28 94 Full Face 80 03/21/19 16:00 30 03/21/19 16:00 64 03/21/19 16:00 Bi-pap 03/21/19 16:00 96.7 65 23 97/46 (63) 97 03/21/19 15:24 86 24 92 Full Face 80 03/21/19 14:30 119/46 03/21/19 13:05 65 22 90 03/21/19 13:00 89 30 88 Full Face 80 03/21/19 12:45 100 03/21/19 12:00 97.8 65 22 119/46 (70) 90 03/21/19 12:00 Bi-pap 03/21/19 12:00 64 Intake and Output 03/22/19 03/23/19 19:00 07:00 Intake Total 386 ml 385 ml Balance 386 ml 385 ml IV Total 386 ml 385 ml # Bowel Movements 3 Labs Test 03/21/19 03:15 03/22/19 21:30 03/23/19 03:25 03/23/19 09:03 White Blood Count 10.8 K/UL (4.8-10.8) 20.8 K/UL (4.8-10.8) Red Blood Count 3.17 M/UL (4.70-6.10) 3.10 M/UL (4.70-6.10) Hemoglobin 10.0 G/DL (14.2-18.0) 9.7 G/DL (14.2-18.0) Hematocrit 31.0 % (42.0-52.0) 30.5 % (42.0-52.0) Mean Corpuscular Volume 98 FL (80-99) 98 FL (80-99) Mean Corpuscular Hemoglobin 31.5 PG (27.0-31.0) 31.3 PG (27.0-31.0) Mean Corpuscular Hemoglobin Concent 32.2 G/DL (32.0-36.0) 31.8 G/DL (32.0-36.0) Red Cell Distribution Width 14.9 % (11.6-14.8) 15.2 % (11.6-14.8) Platelet Count 150 K/UL (150-450) 226 K/UL (150-450) Mean Platelet Volume 7.5 FL (6.5-10.1) 7.5 FL (6.5-10.1) Neutrophils (%) (Auto) % (45.0-75.0) % (45.0-75.0) Lymphocytes (%) (Auto) % (20.0-45.0) % (20.0-45.0) Monocytes (%) (Auto) % (1.0-10.0) % (1.0-10.0) Eosinophils (%) (Auto) % (0.0-3.0) % (0.0-3.0) Basophils (%) (Auto) % (0.0-2.0) % (0.0-2.0) Sodium Level 141 MMOL/L (136-145) 144 MMOL/L (136-145) Potassium Level 3.6 MMOL/L (3.5-5.1) 4.2 MMOL/L (3.5-5.1) Chloride Level 100 MMOL/L (98-107) 103 MMOL/L (98-107) Carbon Dioxide Level 32 MMOL/L (21-32) 30 MMOL/L (21-32) Anion Gap 9 mmol/L (5-15) 11 mmol/L (5-15) Blood Urea Nitrogen 44 mg/dL (7-18) 60 mg/dL (7-18) Creatinine 5.7 MG/DL (0.55-1.30) 7.1 MG/DL (0.55-1.30) Estimat Glomerular Filtration Rate mL/min (>60) mL/min (>60) Glucose Level 231 MG/DL (74-106) 199 MG/DL (74-106) Uric Acid 5.7 MG/DL (2.6-7.2) 7.0 MG/DL (2.6-7.2) Calcium Level 8.3 MG/DL (8.5-10.1) 8.9 MG/DL (8.5-10.1) Phosphorus Level 3.2 MG/DL (2.5-4.9) 4.3 MG/DL (2.5-4.9) Magnesium Level 2.3 MG/DL (1.8-2.4) 2.6 MG/DL (1.8-2.4) Total Bilirubin 0.7 MG/DL (0.2-1.0) 0.7 MG/DL (0.2-1.0) Aspartate Amino Transf (AST/SGOT) 19 U/L (15-37) 20 U/L (15-37) Alanine Aminotransferase (ALT/SGPT) 11 U/L (12-78) 11 U/L (12-78) Alkaline Phosphatase 128 U/L (46-116) 130 U/L (46-116) Troponin I 0.100 ng/mL (0.000-0.056) 0.059 ng/mL (0.000-0.056) C-Reactive Protein, Quantitative 20.4 mg/dL (0.00-0.90) > 70.0 mg/dL (0.00-0.90) Pro-B-Type Natriuretic Peptide > 04353 pg/mL (0-125) > 67793 pg/mL (0-125) Total Protein 7.1 G/DL (6.4-8.2) 7.3 G/DL (6.4-8.2) Albumin 2.1 G/DL (3.4-5.0) 2.2 G/DL (3.4-5.0) Globulin 5.0 g/dL 5.1 g/dL Albumin/Globulin Ratio 0.4 (1.0-2.7) 0.4 (1.0-2.7) Arterial Blood pH 7.371 (7.350-7.450) 7.382 (7.350-7.450) Arterial Blood Partial Pressure CO2 53.7 mmHg (35.0-45.0) 52.8 mmHg (35.0-45.0) Arterial Blood Partial Pressure O2 56.3 mmHg (75.0-100.0) 68.7 mmHg (75.0-100.0) Arterial Blood HCO3 30.4 mmol/L (22.0-26.0) 30.7 mmol/L (22.0-26.0) Arterial Blood Oxygen Saturation 86.3 % (95-100) 92.5 % (95-100) Arterial Blood Base Excess 4.3 (-2-2) 4.7 (-2-2) Wyatt Test Positive Positive Differential Total Cells Counted 100 Neutrophils % (Manual) 93 % (45-75) Lymphocytes % (Manual) 3 % (20-45) Monocytes % (Manual) 4 % (1-10) Eosinophils % (Manual) 0 % (0-3) Basophils % (Manual) 0 % (0-2) Band Neutrophils 0 % (0-8) Platelet Estimate Adequate Platelet Morphology Normal Hypochromasia 1+ Anisocytosis 1+ Height (Feet): 5 Height (Inches): 5.00 Weight (Pounds): 130 Objective Vitals: reviewed, normal Gen: no apparent distress, alert, GCS 15, non-toxic HEENT: normocephalic, atraumatic Resp: chest non-tender, lungs clear, normal Bss, BIPAP++ CV: rrr, no edema, no gallop, no JVD, no murmur Gastrointestinal: normal bowel sounds, non tender, soft, non-distended Msk: normal range of motion, non-tender, calf tenderness, + AV access LUE + thrill + bruit Neurologic: alert, oriented x3, responsive Psychiatric: judgement/insight normal, memory normal, depressed affect Reflexes: 3+ knee (L), 3+ ankle (R) Skin: normal color, no rash, warm/dry, well hydrated Lymphatic: no trip Gigi Aguirre MD Mar 23, 2019 10:07
--- NOTE | 2019-03-23 10:36 | Nephrology Progress Note ---
Assessment/Plan Problem List: (1) ESRD (end stage renal disease) on dialysis (2) Cardiomyopathy (3) NSTEMI (non-ST elevated myocardial infarction) Assessment: Troponin lowering (4) Acute respiratory failure with hypoxia and hypercapnia Assessment ESRD- HTN Anemia DM CAD- Cardiomyopathy s/p SEPSIS [place] Plan worsening leukocytosis ? Aspirated one time Vanco and Zosyn until ID re-eval recent 2D echo 40% EjFx Pulm Toilet and support HD 03/19 next 03/21 next 03/24 Keep BP in check - Hold bp meds for now due to low BP Albumin bolus ASA Nitrate per consultants per orders ? need for PEG as NGt always pulled out ? discussed with Dr Cornelius and Estelita Subjective ROS Limited/Unobtainable: No Constitutional: Reports: malaise, weakness Objective Objective Last 24 Hour Vital Signs Date Time Temp Pulse Resp B/P (MAP) Pulse Ox O2 Delivery O2 Flow Rate FiO2 03/23/19 09:03 82 35 98 Facial 80 03/23/19 08:00 98.1 79 35 114/56 (75) 98 03/23/19 08:00 80 03/23/19 08:00 82 03/23/19 08:00 Bi-pap 03/23/19 07:30 79 32 99 Facial 80 80 32 99 Bi-Pap 03/23/19 07:30 99 Bi-Pap 80 03/23/19 05:02 115/69 03/23/19 04:45 80 39 97 Facial 80 03/23/19 04:00 Bi-pap 03/23/19 04:00 98.3 75 38 118/53 (74) 94 03/23/19 04:00 82 03/23/19 04:00 100 03/23/19 02:42 81 35 98 Facial 100 03/23/19 00:45 78 34 95 Facial 80 81 34 97 Bi-Pap 03/23/19 00:00 98.1 91 28 100/47 (64) 94 03/23/19 00:00 Bi-pap 03/23/19 00:00 30 03/23/19 00:00 81 03/22/19 22:52 82 35 93 Facial 80 03/22/19 21:50 108/67 03/22/19 21:00 75 106/65 03/22/19 20:42 84 35 91 Facial 70 03/22/19 20:00 97.7 87 29 105/58 (74) 94 03/22/19 20:00 87 03/22/19 20:00 30 03/22/19 20:00 Bi-pap 03/22/19 19:04 93 Bi-Pap 70 03/22/19 18:47 81 31 93 Facial 70 83 34 96 Bi-Pap 03/22/19 17:11 80 39 95 Facial 70 03/22/19 16:00 30 03/22/19 16:00 82 03/22/19 16:00 Bi-pap 03/22/19 15:51 98.1 84 30 123/52 (75) 92 03/22/19 15:28 81 26 95 Facial 70 03/22/19 15:13 112/49 03/22/19 13:43 83 40 92 Facial 70 85 39 98 Bi-Pap 03/22/19 12:53 82 44 97 Facial 70 03/22/19 12:00 81 03/22/19 12:00 30 03/22/19 12:00 Bi-pap 03/22/19 11:22 98.4 81 35 112/49 (70) 93 03/22/19 10:40 79 42 94 Facial 70 Intake and Output 03/22/19 03/23/19 19:00 07:00 Intake Total 386 ml 385 ml Balance 386 ml 385 ml IV Total 386 ml 385 ml # Bowel Movements 3 Laboratory Tests 03/22/19 21:30: Arterial Blood pH 7.371, Arterial Blood Partial Pressure CO2 53.7H, Arterial Blood Partial Pressure O2 56.3L, Arterial Blood HCO3 30.4H, Arterial Blood Oxygen Saturation 86.3*L, Arterial Blood Base Excess 4.3H, Wyatt Test Positive 03/23/19 03:25: White Blood Count 20.8H, Red Blood Count 3.10L, Hemoglobin 9.7L, Hematocrit 30.5L, Mean Corpuscular Volume 98, Mean Corpuscular Hemoglobin 31.3H, Mean Corpuscular Hemoglobin Concent 31.8L, Red Cell Distribution Width 15.2H, Platelet Count 226, Mean Platelet Volume 7.5, Neutrophils (%) (Auto) , Lymphocytes (%) (Auto) , Monocytes (%) (Auto) , Eosinophils (%) (Auto) , Basophils (%) (Auto) , Differential Total Cells Counted 100, Neutrophils % ( Manual) 93H, Lymphocytes % (Manual) 3L, Monocytes % (Manual) 4, Eosinophils % ( Manual) 0, Basophils % (Manual) 0, Band Neutrophils 0, Platelet Estimate Adequate, Platelet Morphology Normal, Hypochromasia 1+, Anisocytosis 1+, Sodium Level 144, Potassium Level 4.2, Chloride Level 103, Carbon Dioxide Level 30, Anion Gap 11, Blood Urea Nitrogen 60H, Creatinine 7.1H, Estimat Glomerular Filtration Rate , Glucose Level 199H, Uric Acid 7.0, Calcium Level 8.9, Phosphorus Level 4.3, Magnesium Level 2.6H, Total Bilirubin 0.7, Aspartate Amino Transf (AST/SGOT) 20, Alanine Aminotransferase (ALT/SGPT) 11L, Alkaline Phosphatase 130H, Troponin I 0.059H, C-Reactive Protein, Quantitative > 70.0H, Pro-B-Type Natriuretic Peptide > 29688L, Total Protein 7.3, Albumin 2.2L, Globulin 5.1, Albumin/Globulin Ratio 0.4L 03/23/19 09:03: Arterial Blood pH 7.382, Arterial Blood Partial Pressure CO2 52.8H, Arterial Blood Partial Pressure O2 68.7L, Arterial Blood HCO3 30.7H, Arterial Blood Oxygen Saturation 92.5L, Arterial Blood Base Excess 4.7H, Wyatt Test Positive Height (Feet): 5 Height (Inches): 5.00 Weight (Pounds): 130 General Appearance: mild distress EENT: other - BIPAP Respiratory/Chest: decreased breath sounds Abdomen: distended Objective no change Mikey Brandt MD Mar 23, 2019 10:36
[2019-03-23] MEDS: D5 1/2NS 1,000 ML IV SCH (11:18)
[2019-03-23] MEDS ORDERED: Vancomycin 1 GM in D5W 275 ML IVPB ONE (11:30)
[2019-03-23 11:47] VITALS: BP 124/53
[2019-03-23] MEDS ORDERED: Piperacillin/Tazobactam 3.375 GM in NS 110 ML IVPB ONE (13:00)
--- NOTE | 2019-03-23 13:24 | Infectious Diseases Prog Note ---
Assessment/Plan Assessment/Plan IMPRESSION: 1. Leukocytosis, 2. Lactic acidosis. 3.Doubt sepsis 4. Qbs-[id number] MD. 5. End-stage renal disease, on hemodialysis. 6. Diabetes mellitus, type 2. 7. Hypertension. 8. BPH. 9. Systolic CHF with ejection fraction of 40%. 10. Dysphagia 11. Hypoxemia 12. Pneumonia worsening 13. Anemia 14. Thrombocytopenia RECOMMENDATIONS: Agree with Zosyn DNR, DNI on palliative care Subjective ROS Limited/Unobtainable: Yes Constitutional: Reports: anorexia Neurologic: Reports: confusion, other - on restraint Allergies: Coded Allergies: No Known Allergies (Unverified , 05/25/13) Objective Vital Signs Last 24 Hour Vital Signs Date Time Temp Pulse Resp B/P (MAP) Pulse Ox O2 Delivery O2 Flow Rate FiO2 03/23/19 12:00 Bi-pap 03/23/19 12:00 76 03/23/19 12:00 80 03/23/19 11:47 97.4 81 32 124/53 (76) 96 03/23/19 11:30 78 36 99 Facial 80 03/23/19 09:03 82 35 98 Facial 80 03/23/19 08:00 98.1 79 35 114/56 (75) 98 03/23/19 08:00 80 03/23/19 08:00 82 03/23/19 08:00 Bi-pap 03/23/19 07:30 79 32 99 Facial 80 80 32 99 Bi-Pap 03/23/19 07:30 99 Bi-Pap 80 03/23/19 05:02 115/69 03/23/19 04:45 80 39 97 Facial 80 03/23/19 04:00 Bi-pap 03/23/19 04:00 98.3 75 38 118/53 (74) 94 03/23/19 04:00 82 03/23/19 04:00 100 03/23/19 02:42 81 35 98 Facial 100 03/23/19 00:45 78 34 95 Facial 80 81 34 97 Bi-Pap 03/23/19 00:00 98.1 91 28 100/47 (64) 94 03/23/19 00:00 Bi-pap 03/23/19 00:00 30 03/23/19 00:00 81 03/22/19 22:52 82 35 93 Facial 80 1/25/20 21:50 108/67 03/22/19 21:00 75 106/65 03/22/19 20:42 84 35 91 Facial 70 03/22/19 20:00 97.7 87 29 105/58 (74) 94 03/22/19 20:00 87 03/22/19 20:00 30 03/22/19 20:00 Bi-pap 03/22/19 19:04 93 Bi-Pap 70 03/22/19 18:47 81 31 93 Facial 70 83 34 96 Bi-Pap 03/22/19 17:11 80 39 95 Facial 70 03/22/19 16:00 30 03/22/19 16:00 82 03/22/19 16:00 Bi-pap 03/22/19 15:51 98.1 84 30 123/52 (75) 92 03/22/19 15:28 81 26 95 Facial 70 03/22/19 15:13 112/49 03/22/19 13:43 83 40 92 Facial 70 85 39 98 Bi-Pap Height (Feet): 5 Height (Inches): 5.00 Weight (Pounds): 130 HEENT: mucous membranes moist Respiratory/Chest: rhonchi - bilaterally, other - on BIPAP Cardiovascular: normal rate Abdomen: soft, non tender Extremities: no edema Neurologic/Psychiatric: alert, responsive Laboratory Tests Test 03/22/19 21:30 03/23/19 03:25 03/23/19 09:03 Arterial Blood pH 7.371 (7.350-7.450) 7.382 (7.350-7.450) Arterial Blood Partial Pressure CO2 53.7 mmHg (35.0-45.0) H 52.8 mmHg (35.0-45.0) H Arterial Blood Partial Pressure O2 56.3 mmHg (75.0-100.0) L 68.7 mmHg (75.0-100.0) L Arterial Blood HCO3 30.4 mmol/L (22.0-26.0) H 30.7 mmol/L (22.0-26.0) H Arterial Blood Oxygen Saturation 86.3 % (95-100) *L 92.5 % (95-100) L Arterial Blood Base Excess 4.3 (-2-2) H 4.7 (-2-2) H Wyatt Test Positive Positive White Blood Count 20.8 K/UL (4.8-10.8) H Red Blood Count 3.10 M/UL (4.70-6.10) L Hemoglobin 9.7 G/DL (14.2-18.0) L Hematocrit 30.5 % (42.0-52.0) L Mean Corpuscular Volume 98 FL (80-99) Mean Corpuscular Hemoglobin 31.3 PG (27.0-31.0) H Mean Corpuscular Hemoglobin Concent 31.8 G/DL (32.0-36.0) L Red Cell Distribution Width 15.2 % (11.6-14.8) H Platelet Count 226 K/UL (150-450) Mean Platelet Volume 7.5 FL (6.5-10.1) Neutrophils (%) (Auto) % (45.0-75.0) Lymphocytes (%) (Auto) % (20.0-45.0) Monocytes (%) (Auto) % (1.0-10.0) Eosinophils (%) (Auto) % (0.0-3.0) Basophils (%) (Auto) % (0.0-2.0) Differential Total Cells Counted 100 Neutrophils % (Manual) 93 % (45-75) H Lymphocytes % (Manual) 3 % (20-45) L Monocytes % (Manual) 4 % (1-10) Eosinophils % (Manual) 0 % (0-3) Basophils % (Manual) 0 % (0-2) Band Neutrophils 0 % (0-8) Platelet Estimate Adequate Platelet Morphology Normal Hypochromasia 1+ Anisocytosis 1+ Sodium Level 144 MMOL/L (136-145) Potassium Level 4.2 MMOL/L (3.5-5.1) Chloride Level 103 MMOL/L (98-107) Carbon Dioxide Level 30 MMOL/L (21-32) Anion Gap 11 mmol/L (5-15) Blood Urea Nitrogen 60 mg/dL (7-18) H Creatinine 7.1 MG/DL (0.55-1.30) H Estimat Glomerular Filtration Rate mL/min (>60) Glucose Level 199 MG/DL (74-106) H Uric Acid 7.0 MG/DL (2.6-7.2) Calcium Level 8.9 MG/DL (8.5-10.1) Phosphorus Level 4.3 MG/DL (2.5-4.9) Magnesium Level 2.6 MG/DL (1.8-2.4) H Total Bilirubin 0.7 MG/DL (0.2-1.0) Aspartate Amino Transf (AST/SGOT) 20 U/L (15-37) Alanine Aminotransferase (ALT/SGPT) 11 U/L (12-78) L Alkaline Phosphatase 130 U/L (46-116) H Troponin I 0.059 ng/mL (0.000-0.056) C-Reactive Protein, Quantitative > 70.0 mg/dL (0.00-0.90) H Pro-B-Type Natriuretic Peptide > 40022 pg/mL (0-125) H Total Protein 7.3 G/DL (6.4-8.2) Albumin 2.2 G/DL (3.4-5.0) L Globulin 5.1 g/dL Albumin/Globulin Ratio 0.4 (1.0-2.7) L Current Medications Medications (Trade) Dose Ordered Sig/Stephany Route PRN Reason Start Time Stop Time Status Last Admin Dose Admin Acetaminophen (Tylenol) 650 mg Q6H PRN ORAL Mild Pain/Temp > 100.5 03/09/19 07:01 04/07/19 07:00 03/10/19 03:10 Albuterol/ Ipratropium (Albuterol/ Ipratropium) 3 ml Q4H PRN HHN Shortness of Breath 03/20/19 15:15 03/25/19 15:14 Albuterol/ Ipratropium (Albuterol/ Ipratropium) 3 ml Q6HRT HHN 03/20/19 19:00 03/25/19 18:59 03/23/19 07:38 Apixaban (Eliquis) 2.5 mg BID ORAL 03/21/19 09:00 04/20/19 08:59 Aspirin (ASA) 81 mg DAILY NG 03/16/19 09:00 04/07/19 08:59 03/16/19 08:19 Carvedilol (Coreg) 3.125 mg EVERY 12 HOURS NG 03/15/19 21:00 04/09/19 20:59 03/16/19 08:19 Cefepime HCl 500 mg/Dextrose 55 ml @ 110 mls/hr Q24H IV 03/19/19 21:00 03/26/19 20:59 03/22/19 21:55 Dextrose (Dextrose 50%) 25 ml Q30M PRN IV Hypoglycemia 03/09/19 07:00 04/07/19 06:59 Dextrose (Dextrose 50%) 50 ml Q30M PRN IV Hypoglycemia 03/09/19 07:00 04/07/19 06:59 Dextrose/Sodium Chloride 1,000 ml @ 50 mls/hr Q20H IV 03/23/19 11:15 04/22/19 11:14 03/23/19 11:18 Docusate Sodium (Colace) 100 mg THREE TIMES A DAY ORAL 03/21/19 13:00 04/20/19 12:59 Epoetin Best (Epoetin Best(ESRD on dialysis)) 2,000 unit SUBQ 03/24/19 21:00 04/23/19 20:59 Epoetin Best (Epoetin Best(ESRD on dialysis)) 3,000 unit SUBQ 03/24/19 21:00 04/23/19 20:59 Finasteride (Proscar) 5 mg DAILY ORAL 03/16/19 09:00 04/07/19 08:59 03/16/19 08:11 Fluticasone Propionate (Flonase) 2 spray DAILY NASAL 03/09/19 09:00 04/07/19 08:59 03/23/19 08:51 Guaifenesin/ Codeine Phosphate (Robitussin with codeine) 5 ml Q4H PRN ORAL For Cough 03/09/19 07:00 04/07/19 06:59 03/10/19 03:09 Hydralazine HCl (Apresoline) 25 mg Q4H PRN NG bp over 160 syst 03/15/19 19:03 04/07/19 07:02 Isosorbide Dinitrate (Isordil) 10 mg Q8HR ORAL 03/21/19 14:00 04/20/19 13:59 Nitroglycerin (Ntg) 1 patch Q24H TDERMAL 03/09/19 14:30 04/08/19 14:29 03/22/19 15:13 Ondansetron HCl (Zofran) 4 mg Q4H PRN IVP Nausea & Vomiting 03/09/19 07:03 04/08/19 07:02 03/10/19 03:09 Pantoprazole (Protonix) 40 mg EVERY 12 HOURS ORAL 03/21/19 21:00 04/20/19 20:59 Piperacillin Sod/ Tazobactam Sod 3.375 gm/Sodium Chloride 110 ml @ 27.5 mls/hr ONCE ONCE IVPB 03/23/19 13:00 03/23/19 16:59 03/23/19 13:14 Risperidone (RisperDAL) 1 mg BEDTIME NG 03/15/19 21:00 04/11/19 20:59 03/15/19 21:04 Sevelamer Carbonate (Renvela) 1,600 mg THREE TIMES A DAY NG 03/15/19 18:00 04/14/19 17:59 03/16/19 17:26 Tamsulosin HCl (Flomax) 0.4 mg BEDTIME ORAL 03/09/19 21:00 04/07/19 20:59 03/15/19 21:04 Boyd Tee MD Mar 23, 2019 13:24
[2019-03-23] MEDS: Nitroglycerin Patch 0.4mg TDERMAL SCH (14:49)
[2019-03-23 15:29] VITALS: BP 113/47
--- NOTE | 2019-03-23 17:10 | NUR ---
HAND-OFF: Report given to MARIELA Triplett. Patient in stable condition. Endorsed care.
--- NOTE | 2019-03-23 17:29 | Cardiac Electrophysiology PN ---
Assessment/Plan Assessment/Plan 1. Troponin elevation due to renal failure. Troponin peak 3.5 down to 1.88. Confused in restraints. No CP or SOB. EKG no acute changes. EF 40 % On aspirin, Coreg 3.125 bid and Lipitor. Treat medically 2. Cardiomyopathy with EF of 40%. BNP is more than 35,000. Echo on 02/02/2019 showed EF of 55% to 60%, repeat echo showed EF 40%. On Coreg, Lisinopril 10 daily and HD 3. On Eliquis for CVA and PVD. No Fib or DVT or PE 4. End-stage renal disease, on hemodialysis. 5. Lactic acidosis. 6. Hyperlipidemia, on Lipitor. 7. Dysphagia. Family refused PEG or NG tube feeding. D [address] Bloom 8. Respiratory failure on BIPAP. SEB RN Subjective Subjective On BIPAP and D 10 iv fluid. No NGT or consent for PEG Objective Last 24 Hour Vital Signs Date Time Temp Pulse Resp B/P (MAP) Pulse Ox O2 Delivery O2 Flow Rate FiO2 03/23/19 16:39 76 30 94 Facial 80 03/23/19 15:29 97.4 77 30 113/47 (69) 94 03/23/19 14:49 124/53 03/23/19 14:46 80 33 98 Facial 80 03/23/19 13:40 79 34 98 Facial 80 80 32 99 Bi-Pap 03/23/19 12:00 Bi-pap 03/23/19 12:00 76 03/23/19 12:00 80 03/23/19 11:47 97.4 81 32 124/53 (76) 96 03/23/19 11:30 78 36 99 Facial 80 03/23/19 09:03 82 35 98 Facial 80 03/23/19 08:00 98.1 79 35 114/56 (75) 98 03/23/19 08:00 80 03/23/19 08:00 82 03/23/19 08:00 Bi-pap 03/23/19 07:30 79 32 99 Facial 80 80 32 99 Bi-Pap 03/23/19 07:30 99 Bi-Pap 80 03/23/19 05:02 115/69 03/23/19 04:45 80 39 97 Facial 80 03/23/19 04:00 Bi-pap 03/23/19 04:00 98.3 75 38 118/53 (74) 94 03/23/19 04:00 82 03/23/19 04:00 100 03/23/19 02:42 81 35 98 Facial 100 03/23/19 00:45 78 34 95 Facial 80 81 34 97 Bi-Pap 03/23/19 00:00 98.1 91 28 100/47 (64) 94 03/23/19 00:00 Bi-pap 03/23/19 00:00 30 03/23/19 00:00 81 03/22/19 22:52 82 35 93 Facial 80 03/22/19 21:50 108/67 03/22/19 21:00 75 106/65 03/22/19 20:42 84 35 91 Facial 70 03/22/19 20:00 97.7 87 29 105/58 (74) 94 03/22/19 20:00 87 03/22/19 20:00 30 03/22/19 20:00 Bi-pap 03/22/19 19:04 93 Bi-Pap 70 03/22/19 18:47 81 31 93 Facial 70 83 34 96 Bi-Pap Intake and Output 03/22/19 03/23/19 19:00 07:00 Intake Total 386 ml 415 ml Balance 386 ml 415 ml IV Total 386 ml 415 ml # Bowel Movements 3 Laboratory Tests Test 03/22/19 21:30 03/23/19 03:25 03/23/19 09:03 Arterial Blood pH 7.371 (7.350-7.450) 7.382 (7.350-7.450) Arterial Blood Partial Pressure CO2 53.7 mmHg (35.0-45.0) H 52.8 mmHg (35.0-45.0) H Arterial Blood Partial Pressure O2 56.3 mmHg (75.0-100.0) L 68.7 mmHg (75.0-100.0) L Arterial Blood HCO3 30.4 mmol/L (22.0-26.0) H 30.7 mmol/L (22.0-26.0) H Arterial Blood Oxygen Saturation 86.3 % (95-100) *L 92.5 % (95-100) L Arterial Blood Base Excess 4.3 (-2-2) H 4.7 (-2-2) H Wyatt Test Positive Positive White Blood Count 20.8 K/UL (4.8-10.8) H Red Blood Count 3.10 M/UL (4.70-6.10) L Hemoglobin 9.7 G/DL (14.2-18.0) L Hematocrit 30.5 % (42.0-52.0) L Mean Corpuscular Volume 98 FL (80-99) Mean Corpuscular Hemoglobin 31.3 PG (27.0-31.0) H Mean Corpuscular Hemoglobin Concent 31.8 G/DL (32.0-36.0) L Red Cell Distribution Width 15.2 % (11.6-14.8) H Platelet Count 226 K/UL (150-450) Mean Platelet Volume 7.5 FL (6.5-10.1) Neutrophils (%) (Auto) % (45.0-75.0) Lymphocytes (%) (Auto) % (20.0-45.0) Monocytes (%) (Auto) % (1.0-10.0) Eosinophils (%) (Auto) % (0.0-3.0) Basophils (%) (Auto) % (0.0-2.0) Differential Total Cells Counted 100 Neutrophils % (Manual) 93 % (45-75) H Lymphocytes % (Manual) 3 % (20-45) L Monocytes % (Manual) 4 % (1-10) Eosinophils % (Manual) 0 % (0-3) Basophils % (Manual) 0 % (0-2) Band Neutrophils 0 % (0-8) Platelet Estimate Adequate Platelet Morphology Normal Hypochromasia 1+ Anisocytosis 1+ Sodium Level 144 MMOL/L (136-145) Potassium Level 4.2 MMOL/L (3.5-5.1) Chloride Level 103 MMOL/L (98-107) Carbon Dioxide Level 30 MMOL/L (21-32) Anion Gap 11 mmol/L (5-15) Blood Urea Nitrogen 60 mg/dL (7-18) H Creatinine 7.1 MG/DL (0.55-1.30) H Estimat Glomerular Filtration Rate mL/min (>60) Glucose Level 199 MG/DL (74-106) H Uric Acid 7.0 MG/DL (2.6-7.2) Calcium Level 8.9 MG/DL (8.5-10.1) Phosphorus Level 4.3 MG/DL (2.5-4.9) Magnesium Level 2.6 MG/DL (1.8-2.4) H Total Bilirubin 0.7 MG/DL (0.2-1.0) Aspartate Amino Transf (AST/SGOT) 20 U/L (15-37) Alanine Aminotransferase (ALT/SGPT) 11 U/L (12-78) L Alkaline Phosphatase 130 U/L (46-116) H Troponin I 0.059 ng/mL (0.000-0.056) C-Reactive Protein, Quantitative > 70.0 mg/dL (0.00-0.90) H Pro-B-Type Natriuretic Peptide > 05396 pg/mL (0-125) H Total Protein 7.3 G/DL (6.4-8.2) Albumin 2.2 G/DL (3.4-5.0) L Globulin 5.1 g/dL Albumin/Globulin Ratio 0.4 (1.0-2.7) L Objective HEAD AND NECK: No JVD. BIPAP LUNGS: Clear. CARDIOVASCULAR: Regular S1 and S2 with no gallop or murmur. ABDOMEN: Soft. EXTREMITIES: No pitting edema. Dialysis access in the left arm. Dariel Corcoran MD Mar 23, 2019 17:29
--- NOTE | 2019-03-23 19:15 | NUR ---
NURSE NOTES: Pt report received form Nura SIERRA. pt is alert and oriented times 1. pt is on BIPAP, satting at 95%, respirations at 35 MD kossuth aware. 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 pt bed is low, locked, armed, bed rails up times 3, call light within reach. will follow plan of care.
[2019-03-23 20:00] VITALS: BP 117/79
--- NOTE | 2019-03-23 20:09 | General Progress Note ---
Assessment/Plan Assessment/Plan: respiratory failure aspiration risk NSTEMI renal failure diabeters persistent hypoglycemia ho pneumonia ho elevated lactic acid htn hld thrombocytopenia bipap consider changing to hi jakub defer to pulmonary aggressive pulmonaryhygiene, followed by Dr Adryan nichole noted , pos aspirate heme eval apprecaiated aspiration precutions\pulmonary hygiene echo noted, decreaed EF endo eval appreciated dialysis dependent abx per ID, monitor labs dw Dr Burk, on eliquis due to previous stroke paf dvt and ulcer prophylaxis dw family they dont want aggressive measure want him to be comfortable DNR DNI, they dont want tube feeds no intubation palliative measures polar dillws our Subjective Allergies: Coded Allergies: No Known Allergies (Unverified , 05/25/13) Subjective on bipap, opens eyes, family doesnt want ng feeding want to purse comfort measures labs noted leukocytosis Objective Last 24 Hour Vital Signs Date Time Temp Pulse Resp B/P (MAP) Pulse Ox O2 Delivery O2 Flow Rate FiO2 03/23/19 16:39 76 30 94 Facial 80 03/23/19 16:00 Bi-pap 03/23/19 16:00 80 03/23/19 16:00 76 03/23/19 15:29 97.4 77 30 113/47 (69) 94 03/23/19 14:49 124/53 03/23/19 14:46 80 33 98 Facial 80 03/23/19 13:40 79 34 98 Facial 80 80 32 99 Bi-Pap 03/23/19 12:00 Bi-pap 03/23/19 12:00 76 03/23/19 12:00 80 03/23/19 11:47 97.4 81 32 124/53 (76) 96 03/23/19 11:30 78 36 99 Facial 80 03/23/19 09:03 82 35 98 Facial 80 03/23/19 08:00 98.1 79 35 114/56 (75) 98 03/23/19 08:00 80 03/23/19 08:00 82 03/23/19 08:00 Bi-pap 03/23/19 07:30 79 32 99 Facial 80 80 32 99 Bi-Pap 03/23/19 07:30 99 Bi-Pap 80 03/23/19 05:02 115/69 03/23/19 04:45 80 39 97 Facial 80 03/23/19 04:00 Bi-pap 03/23/19 04:00 98.3 75 38 118/53 (74) 94 03/23/19 04:00 82 03/23/19 04:00 100 03/23/19 02:42 81 35 98 Facial 100 03/23/19 00:45 78 34 95 Facial 80 81 34 97 Bi-Pap 03/23/19 00:00 98.1 91 28 100/47 (64) 94 03/23/19 00:00 Bi-pap 03/23/19 00:00 30 03/23/19 00:00 81 03/22/19 22:52 82 35 93 Facial 80 03/22/19 21:50 108/67 03/22/19 21:00 75 106/65 03/22/19 20:42 84 35 91 Facial 70 Intake and Output 03/22/19 03/23/19 19:00 07:00 Intake Total 386 ml 415 ml Balance 386 ml 415 ml IV Total 386 ml 415 ml # Bowel Movements 3 Laboratory Tests 03/22/19 21:30: Arterial Blood pH 7.371, Arterial Blood Partial Pressure CO2 53.7H, Arterial Blood Partial Pressure O2 56.3L, Arterial Blood HCO3 30.4H, Arterial Blood Oxygen Saturation 86.3*L, Arterial Blood Base Excess 4.3H, Wyatt Test Positive 03/23/19 03:25: White Blood Count 20.8H, Red Blood Count 3.10L, Hemoglobin 9.7L, Hematocrit 30.5L, Mean Corpuscular Volume 98, Mean Corpuscular Hemoglobin 31.3H, Mean Corpuscular Hemoglobin Concent 31.8L, Red Cell Distribution Width 15.2H, Platelet Count 226, Mean Platelet Volume 7.5, Neutrophils (%) (Auto) , Lymphocytes (%) (Auto) , Monocytes (%) (Auto) , Eosinophils (%) (Auto) , Basophils (%) (Auto) , Differential Total Cells Counted 100, Neutrophils % ( Manual) 93H, Lymphocytes % (Manual) 3L, Monocytes % (Manual) 4, Eosinophils % ( Manual) 0, Basophils % (Manual) 0, Band Neutrophils 0, Platelet Estimate Adequate, Platelet Morphology Normal, Hypochromasia 1+, Anisocytosis 1+, Sodium Level 144, Potassium Level 4.2, Chloride Level 103, Carbon Dioxide Level 30, Anion Gap 11, Blood Urea Nitrogen 60H, Creatinine 7.1H, Estimat Glomerular Filtration Rate , Glucose Level 199H, Uric Acid 7.0, Calcium Level 8.9, Phosphorus Level 4.3, Magnesium Level 2.6H, Total Bilirubin 0.7, Aspartate Amino Transf (AST/SGOT) 20, Alanine Aminotransferase (ALT/SGPT) 11L, Alkaline Phosphatase 130H, Troponin I 0.059H, C-Reactive Protein, Quantitative > 70.0H, Pro-B-Type Natriuretic Peptide > 60354R, Total Protein 7.3, Albumin 2.2L, Globulin 5.1, Albumin/Globulin Ratio 0.4L 03/23/19 09:03: Arterial Blood pH 7.382, Arterial Blood Partial Pressure CO2 52.8H, Arterial Blood Partial Pressure O2 68.7L, Arterial Blood HCO3 30.7H, Arterial Blood Oxygen Saturation 92.5L, Arterial Blood Base Excess 4.7H, Wyatt Test Positive Height (Feet): 5 Height (Inches): 5.00 Weight (Pounds): 130 Neck: supple Cardiovascular: normal rate Respiratory/Chest: decreased breath sounds Abdomen: soft Viktor García MD Mar 23, 2019 20:09
--- NOTE | 2019-03-23 20:12 | Pulmonology Progress Note ---
Assessment/Plan Assessment/Plan Assessment/Plan ASSESSMENT: The patient is an 83-year-old male with a history of prior CVA, end -stage renal disease, on dialysis, hypertension, hyperlipidemia, CAD, CVA, and BPH presenting with dizziness and qko-MS-pnpyawkft VT. He is fairly stable from a respiratory standpoint. PROBLEM LIST: 1. Non ST-elevation myocardial infarction. 2. Recent pneumonia. 3. Dizziness. 4. End-stage renal disease, on dialysis. 5. CAD. 6. Hypertension. 7. Hyperlipidemia. 8. Anemia. 9. Diabetes. TREATMENT PLAN: NO escalation, no ICU transfer Optimize pulmonary hygiene/mobilize as tolerated. Continue BiPAP for now, not tolerating it being removed Titrate O2 HHN's Abx: Cefepime per ID diuresis as bp will toelrated Follow up Cardiology recommendations, medical management of non-STEMI. AC held 2/2 thrombocytopenia Monitor volumes and renal function, dialysis per Vangie/UF as tolerated DNAR/DNI prognosis poor Subjective ROS Limited/Unobtainable: Yes Allergies: Coded Allergies: No Known Allergies (Unverified , 05/25/13) Subjective called this afternoon with signfiicant desaturations on 80% Fio2 sats 95% he is awake but confused doesn't follow commands remains on bipap mild distress positive secretions Objective Last 24 Hour Vital Signs Date Time Temp Pulse Resp B/P (MAP) Pulse Ox O2 Delivery O2 Flow Rate FiO2 03/23/19 16:39 76 30 94 Facial 80 03/23/19 16:00 Bi-pap 03/23/19 16:00 80 03/23/19 16:00 76 03/23/19 15:29 97.4 77 30 113/47 (69) 94 03/23/19 14:49 124/53 03/23/19 14:46 80 33 98 Facial 80 03/23/19 13:40 79 34 98 Facial 80 80 32 99 Bi-Pap 03/23/19 12:00 Bi-pap 03/23/19 12:00 76 03/23/19 12:00 80 03/23/19 11:47 97.4 81 32 124/53 (76) 96 03/23/19 11:30 78 36 99 Facial 80 03/23/19 09:03 82 35 98 Facial 80 03/23/19 08:00 98.1 79 35 114/56 (75) 98 03/23/19 08:00 80 03/23/19 08:00 82 03/23/19 08:00 Bi-pap 03/23/19 07:30 79 32 99 Facial 80 80 32 99 Bi-Pap 03/23/19 07:30 99 Bi-Pap 80 03/23/19 05:02 115/69 03/23/19 04:45 80 39 97 Facial 80 03/23/19 04:00 Bi-pap 03/23/19 04:00 98.3 75 38 118/53 (74) 94 03/23/19 04:00 82 03/23/19 04:00 100 03/23/19 02:42 81 35 98 Facial 100 03/23/19 00:45 78 34 95 Facial 80 81 34 97 Bi-Pap 03/23/19 00:00 98.1 91 28 100/47 (64) 94 03/23/19 00:00 Bi-pap 03/23/19 00:00 30 03/23/19 00:00 81 03/22/19 22:52 82 35 93 Facial 80 03/22/19 21:50 108/67 03/22/19 21:00 75 106/65 03/22/19 20:42 84 35 91 Facial 70 Intake and Output 03/22/19 03/23/19 19:00 07:00 Intake Total 386 ml 415 ml Balance 386 ml 415 ml IV Total 386 ml 415 ml # Bowel Movements 3 General Appearance: cachetic Respiratory/Chest: rhonchi Cardiovascular: normal rate, regular rhythm, murmur systolic Abdomen: soft, non tender, no organomegaly Extremities: no edema Neurologic/Psychiatric: disoriented cxr with worsening bilateral infiltraes most likely edema Laboratory Tests 03/22/19 21:30: Arterial Blood pH 7.371, Arterial Blood Partial Pressure CO2 53.7H, Arterial Blood Partial Pressure O2 56.3L, Arterial Blood HCO3 30.4H, Arterial Blood Oxygen Saturation 86.3*L, Arterial Blood Base Excess 4.3H, Wyatt Test Positive 03/23/19 03:25: White Blood Count 20.8H, Red Blood Count 3.10L, Hemoglobin 9.7L, Hematocrit 30.5L, Mean Corpuscular Volume 98, Mean Corpuscular Hemoglobin 31.3H, Mean Corpuscular Hemoglobin Concent 31.8L, Red Cell Distribution Width 15.2H, Platelet Count 226, Mean Platelet Volume 7.5, Neutrophils (%) (Auto) , Lymphocytes (%) (Auto) , Monocytes (%) (Auto) , Eosinophils (%) (Auto) , Basophils (%) (Auto) , Differential Total Cells Counted 100, Neutrophils % ( Manual) 93H, Lymphocytes % (Manual) 3L, Monocytes % (Manual) 4, Eosinophils % ( Manual) 0, Basophils % (Manual) 0, Band Neutrophils 0, Platelet Estimate Adequate, Platelet Morphology Normal, Hypochromasia 1+, Anisocytosis 1+, Sodium Level 144, Potassium Level 4.2, Chloride Level 103, Carbon Dioxide Level 30, Anion Gap 11, Blood Urea Nitrogen 60H, Creatinine 7.1H, Estimat Glomerular Filtration Rate , Glucose Level 199H, Uric Acid 7.0, Calcium Level 8.9, Phosphorus Level 4.3, Magnesium Level 2.6H, Total Bilirubin 0.7, Aspartate Amino Transf (AST/SGOT) 20, Alanine Aminotransferase (ALT/SGPT) 11L, Alkaline Phosphatase 130H, Troponin I 0.059H, C-Reactive Protein, Quantitative > 70.0H, Pro-B-Type Natriuretic Peptide > 76390W, Total Protein 7.3, Albumin 2.2L, Globulin 5.1, Albumin/Globulin Ratio 0.4L 03/23/19 09:03: Arterial Blood pH 7.382, Arterial Blood Partial Pressure CO2 52.8H, Arterial Blood Partial Pressure O2 68.7L, Arterial Blood HCO3 30.7H, Arterial Blood Oxygen Saturation 92.5L, Arterial Blood Base Excess 4.7H, Wyatt Test Positive Current Medications Medications (Trade) Dose Ordered Sig/Stephany Route PRN Reason Start Time Stop Time Status Last Admin Dose Admin Acetaminophen (Tylenol) 650 mg Q6H PRN ORAL Mild Pain/Temp > 100.5 03/09/19 07:01 04/07/19 07:00 03/10/19 03:10 Albuterol/ Ipratropium (Albuterol/ Ipratropium) 3 ml Q4H PRN HHN Shortness of Breath 03/20/19 15:15 03/25/19 15:14 Albuterol/ Ipratropium (Albuterol/ Ipratropium) 3 ml Q6HRT HHN 03/20/19 19:00 03/25/19 18:59 03/23/19 13:44 Apixaban (Eliquis) 2.5 mg BID ORAL 03/21/19 09:00 04/20/19 08:59 Aspirin (ASA) 81 mg DAILY NG 03/16/19 09:00 04/07/19 08:59 03/16/19 08:19 Carvedilol (Coreg) 3.125 mg EVERY 12 HOURS NG 03/15/19 21:00 04/09/19 20:59 03/16/19 08:19 Cefepime HCl 500 mg/Dextrose 55 ml @ 110 mls/hr Q24H IV 03/19/19 21:00 03/26/19 20:59 03/22/19 21:55 Dextrose (Dextrose 50%) 25 ml Q30M PRN IV Hypoglycemia 03/09/19 07:00 04/07/19 06:59 Dextrose (Dextrose 50%) 50 ml Q30M PRN IV Hypoglycemia 03/09/19 07:00 04/07/19 06:59 Dextrose/Sodium Chloride 1,000 ml @ 50 mls/hr Q20H IV 03/23/19 11:15 04/22/19 11:14 03/23/19 11:18 Docusate Sodium (Colace) 100 mg THREE TIMES A DAY ORAL 03/21/19 13:00 04/20/19 12:59 Epoetin Best (Epoetin Best(ESRD on dialysis)) 2,000 unit SUBQ 03/24/19 21:00 04/23/19 20:59 Epoetin Best (Epoetin Best(ESRD on dialysis)) 3,000 unit SUBQ 03/24/19 21:00 04/23/19 20:59 Finasteride (Proscar) 5 mg DAILY ORAL 03/16/19 09:00 04/07/19 08:59 03/16/19 08:11 Fluticasone Propionate (Flonase) 2 spray DAILY NASAL 03/09/19 09:00 04/07/19 08:59 03/23/19 08:51 Guaifenesin/ Codeine Phosphate (Robitussin with codeine) 5 ml Q4H PRN ORAL For Cough 03/09/19 07:00 04/07/19 06:59 03/10/19 03:09 Hydralazine HCl (Apresoline) 25 mg Q4H PRN NG bp over 160 syst 03/15/19 19:03 04/07/19 07:02 Isosorbide Dinitrate (Isordil) 10 mg Q8HR ORAL 03/21/19 14:00 04/20/19 13:59 Nitroglycerin (Ntg) 1 patch Q24H TDERMAL 03/09/19 14:30 04/08/19 14:29 03/23/19 14:49 Ondansetron HCl (Zofran) 4 mg Q4H PRN IVP Nausea & Vomiting 03/09/19 07:03 04/08/19 07:02 03/10/19 03:09 Pantoprazole (Protonix) 40 mg EVERY 12 HOURS ORAL 03/21/19 21:00 04/20/19 20:59 Risperidone (RisperDAL) 1 mg BEDTIME NG 03/15/19 21:00 04/11/19 20:59 03/15/19 21:04 Sevelamer Carbonate (Renvela) 1,600 mg THREE TIMES A DAY NG 03/15/19 18:00 04/14/19 17:59 03/16/19 17:26 Tamsulosin HCl (Flomax) 0.4 mg BEDTIME ORAL 03/09/19 21:00 04/07/19 20:59 03/15/19 21:04 Moraima Stone DO Mar 23, 2019 20:12
[2019-03-23] MEDS: Tamsulosin 0.4mg cap ORAL SCH (20:26)
[2019-03-23] MEDS: Cefepime HCl 500 MG in D5W 55 ML IV SCH (21:03)
--- NOTE | 2019-03-23 23:00 | NUR ---
NURSE NOTES: spoke with MD RADU Chávez MD AWARE PT IS NPO, can not eat, ON BIPAP, AND CAN NOT TAKE ANY PO MEDS, ESPECIALLY PO ELIQUIS for DVT Prophylaxis. is aware PT CLEARED FROM IMAGING TO HAVE SCDS ON (prachi duplex neg) .MD LOVELACE ORDERED SCD bilateral lower extremities.
--- NOTE | 2019-03-23 23:13 | NUR ---
NURSE NOTES: SCD BILAT LOWER EX on, active and working. pt tolerating well.
[2019-03-24] VITALS: BP 112/57
--- NOTE | 2019-03-24 01:30 | NUR ---
NURSE NOTES: ASSUMED CARE FROM JAVON REILLY RN.PATIENT ON A BIPAP AT 15/8 AT 80% WELL TOLERATED.RESTING COMFORTABLY BUT NON COMPLIANT,ORAL CARE RENDERED BUT PATIENT BITE THE YANKAUER AND WIGGLE HIS HEAD.BILATERAL SOFT WRIST RESTRAINTS IN PLACE.REPOSITIONED FOR COMFORT.WILL CONTINUE PLAN OF CARE.
[2019-03-24] MEDS: Albuterol/Ipratropium 3ml neb HHN SCH ×4 (01:49→19:24)
--- NOTE | 2019-03-24 03:00 | NUR ---
HAND-OFF: Report given to LESTER XIAO. Addendum: 03/24/19 at 0526 by KAYLA REILLY RN HAND-OFF: Report given to LESTER XIAO. Pt remains stable.
[2019-03-24 04:00] VITALS: BP 98/50
[2019-03-24 05:02] LABS: HEMATOCRIT 28.3 % (42.0-52.0); MEAN CORPUSCULAR VOLUME 99 FL (80-99); PLATELET COUNT 216 K/UL (150-450); RED BLOOD COUNT 2.86 M/UL (4.70-6.10); RED CELL DISTRIBUTION WIDTH 15.2 % (11.6-14.8); WHITE BLOOD COUNT 16.5 K/UL (4.8-10.8)
[2019-03-24 05:32] LABS: ALANINE AMINOTRANSFERASE 8 U/L (12-78); ALBUMIN 1.7 G/DL (3.4-5.0); ALBUMIN/GLOBULIN RATIO 0.3 (1.0-2.7); ALKALINE PHOSPHATASE 105 U/L (46-116); ANION GAP 8 mmol/L (5-15); ASPARTATE AMINO TRANSFERASE 20 U/L (15-37); BILIRUBIN,TOTAL 0.5 MG/DL (0.2-1.0); BLOOD UREA NITROGEN 71 mg/dL (7-18); CALCIUM 7.8 MG/DL (8.5-10.1); CARBON DIOXIDE 28 MMOL/L (21-32); CHLORIDE 101 MMOL/L (98-107); CREATININE 7.6 MG/DL (0.55-1.30); SODIUM 137 MMOL/L (136-145)
[2019-03-24 05:41] LABS: CREATINE KINASE 22 U/L (26-308); GAMMA GLUTAMYL TRANSPEPTIDASE 25 U/L (5-85); PHOSPHORUS 4.5 MG/DL (2.5-4.9)
--- NOTE | 2019-03-24 07:30 | NUR ---
HAND-OFF: Report given to MARIELA HEMPHILL.
--- NOTE | 2019-03-24 07:30 | NUR ---
RECEIVED PT. ON BIPAP ON 80% O2 ON RESTRAIN TRY TO TAKE OFF BIPAP SR NO DISTRESS
[2019-03-24 08:00] VITALS: BP 96/41
[2019-03-24] MEDS: Aspirin Baby 81mg NG SCH (08:22)
[2019-03-24] MEDS: Renvela 800mg Pkt NG SCH ×3 (08:24→17:01)
[2019-03-24] MEDS: Docusate 100mg cap ORAL SCH ×3 (08:24→17:01)
[2019-03-24] MEDS: Eliquis 2.5mg tablet ORAL SCH ×2 (08:26→17:03)
--- NOTE | 2019-03-24 08:40 | Hematology/Onc Progress Note ---
Assessment/Plan Assessment/Plan Assessment and Recs: # Thrombocytopenia -- i have seen him in the past and reviewed platelet trend for the past 1-2 years and this is at an all time low, likely related to infection/reactive process --> plt trend 115-->87-->7-->58-->55-->75-->86-->150-->226 --> smear has been reviewed --> meds are noted --> dw pcp, will HOLD OFF ELIQUIS FOR NOW given also low H/H --> GIVEN PLATELET COUNT STABilizeD, restart eliquis # Anemia due to chronic disease -- hgb trending at 9-11 --> consider anemia panel, reviewed from prior admission --> does not require iron at this time --> hold off on iron --> hgb trend 10.7-->10-->8.1-->8.6-->8.1-->10-->9.7 --> EPOGEN HAS BEEN STARTED # Secondary hypercoagulable disorder, no afib, but has pvd and stroke ppx --> continue if plt >50k and h/h stable # ESRD (end stage renal disease) --> as per Neprho --> TTF --> reviewed Dr. Brandt recs # Hypotension --> fluids as needed # RLL on cxr --> on broad spectrum abx --> as per id # Diabetes --> a1c goal <8, iss, accuchecks # NSTEMI with elev trop may be due to esrd --> as per cards management, asa bb, lipitor # Dysphagia. Family refused PEG --> hold off peg # Respiratory failure on BIPAP. DNR now --> per pulm # Dvt ppx scds ++ eliquis since 03/21 Appreciate consultation and enrique RN Subjective Constitutional: Denies: no symptoms, chills, fever, malaise, weakness, other HEENT: Denies: no symptoms, eye pain, blurred vision, tearing, double vision, ear pain, ear discharge, nose pain, nose congestion, throat pain, throat swelling, mouth pain, mouth swelling, other Cardiovascular: Denies: no symptoms, chest pain, edema, irregular heart rate, lightheadedness, palpitations, syncope, other Gastrointestinal/Abdominal: Denies: no symptoms, abdomen distended, abdominal pain, black stools, tarry stools, blood in stool, constipated, diarrhea, difficulty swallowing, nausea, poor appetite, poor fluid intake, rectal bleeding , vomiting, other Genitourinary: Denies: no symptoms, burning, discharge, frequency, flank pain, hematuria, incontinence, pain, urgency, other Neurologic/Psychiatric: Denies: no symptoms, anxiety, depressed, emotional problems, headache, numbness, paresthesia, pre-existing deficit, seizure, tingling, tremors, weakness, other Endocrine: Denies: no symptoms, excessive sweating, flushing, intolerance to cold, intolerance to heat, increased hunger, increased thirst, increased urine, unexplained weight gain, unexplained weight loss, other Hematologic/Lymphatic: Denies: no symptoms, anemia, easy bleeding, easy bruising, adenopathy, other Allergies: Coded Allergies: No Known Allergies (Unverified , 05/25/13) Subjective 03/18/19: remains confused, nonverbal, labs reviewed, meds noted 03/19: no plan for peg, code status unchanged, poor prognosis, labs noted, seen by psych 03/20: awake, no acute events, bipap, cefe, epogen 03/21: no major changes, labs noted, will begin anticoag, remains confused 03/23: worsening cxr, wbc 20.8, no acute events, on apixaban 03/24: labs reviewed, no bleeding noted, no major changes, hgb is 9 Objective Objective Current Medications Medications (Trade) Dose Ordered Sig/Stephany Route PRN Reason Start Time Stop Time Status Last Admin Dose Admin Acetaminophen (Tylenol) 650 mg Q6H PRN ORAL Mild Pain/Temp > 100.5 03/09/19 07:01 04/07/19 07:00 03/10/19 03:10 Albuterol/ Ipratropium (Albuterol/ Ipratropium) 3 ml Q4H PRN HHN Shortness of Breath 03/20/19 15:15 03/25/19 15:14 Albuterol/ Ipratropium (Albuterol/ Ipratropium) 3 ml Q6HRT HHN 03/20/19 19:00 03/25/19 18:59 03/24/19 07:13 Apixaban (Eliquis) 2.5 mg BID ORAL 03/21/19 09:00 04/20/19 08:59 Aspirin (ASA) 81 mg DAILY NG 03/16/19 09:00 04/07/19 08:59 03/16/19 08:19 Carvedilol (Coreg) 3.125 mg EVERY 12 HOURS NG 03/15/19 21:00 04/09/19 20:59 03/16/19 08:19 Cefepime HCl 500 mg/Dextrose 55 ml @ 110 mls/hr Q24H IV 03/19/19 21:00 03/26/19 20:59 03/23/19 21:03 Dextrose (Dextrose 50%) 25 ml Q30M PRN IV Hypoglycemia 03/09/19 07:00 04/07/19 06:59 Dextrose (Dextrose 50%) 50 ml Q30M PRN IV Hypoglycemia 03/09/19 07:00 04/07/19 06:59 Dextrose/Sodium Chloride 1,000 ml @ 50 mls/hr Q20H IV 03/23/19 11:15 04/22/19 11:14 03/23/19 11:18 Docusate Sodium (Colace) 100 mg THREE TIMES A DAY ORAL 03/21/19 13:00 04/20/19 12:59 Epoetin Best (Epoetin Best(ESRD on dialysis)) 2,000 unit SUBQ 03/24/19 21:00 04/23/19 20:59 Epoetin Best (Epoetin Best(ESRD on dialysis)) 3,000 unit SUBQ 03/24/19 21:00 04/23/19 20:59 Finasteride (Proscar) 5 mg DAILY ORAL 03/16/19 09:00 04/07/19 08:59 03/16/19 08:11 Fluticasone Propionate (Flonase) 2 spray DAILY NASAL 03/09/19 09:00 04/07/19 08:59 03/23/19 08:51 Guaifenesin/ Codeine Phosphate (Robitussin with codeine) 5 ml Q4H PRN ORAL For Cough 03/09/19 07:00 04/07/19 06:59 03/10/19 03:09 Hydralazine HCl (Apresoline) 25 mg Q4H PRN NG bp over 160 syst 03/15/19 19:03 04/07/19 07:02 Isosorbide Dinitrate (Isordil) 10 mg Q8HR ORAL 03/21/19 14:00 04/20/19 13:59 Nitroglycerin (Ntg) 1 patch Q24H TDERMAL 03/09/19 14:30 04/08/19 14:29 03/23/19 14:49 Ondansetron HCl (Zofran) 4 mg Q4H PRN IVP Nausea & Vomiting 03/09/19 07:03 04/08/19 07:02 03/10/19 03:09 Pantoprazole (Protonix) 40 mg EVERY 12 HOURS ORAL 03/21/19 21:00 04/20/19 20:59 Risperidone (RisperDAL) 1 mg BEDTIME NG 03/15/19 21:00 04/11/19 20:59 03/15/19 21:04 Sevelamer Carbonate (Renvela) 1,600 mg THREE TIMES A DAY NG 03/15/19 18:00 04/14/19 17:59 03/16/19 17:26 Tamsulosin HCl (Flomax) 0.4 mg BEDTIME ORAL 03/09/19 21:00 04/07/19 20:59 03/15/19 21:04 Last 24 Hour Vital Signs Date Time Temp Pulse Resp B/P (MAP) Pulse Ox O2 Delivery O2 Flow Rate FiO2 03/24/19 08:22 69 96/41 03/24/19 07:14 67 27 100 Bi-Pap 80 03/24/19 07:13 100 Bi-Pap 80 03/24/19 07:03 67 27 100 Full Face 80 03/24/19 06:00 98/50 03/24/19 05:07 68 30 97 Full Face 80 03/24/19 04:00 97.6 70 32 98/50 (66) 9 03/24/19 04:00 69 03/24/19 04:00 80 03/24/19 04:00 Bi-pap 03/24/19 03:20 71 16 99 Full Face 80 03/24/19 01:30 71 36 98 Facial 80 74 34 99 Bi-Pap 80 03/24/19 00:00 73 03/24/19 00:00 Bi-pap 03/24/19 00:00 80 03/24/19 00:00 97.8 74 34 112/57 (75) 9 03/23/19 23:30 74 31 95 Full Face 80 03/23/19 21:07 77 33 93 Facial 80 03/23/19 21:04 113/70 03/23/19 20:26 80 117/79 03/23/19 20:00 97 Bi-Pap 80 03/23/19 20:00 80 03/23/19 20:00 97.2 74 33 117/79 (92) 98 03/23/19 20:00 Bi-pap 03/23/19 20:00 72 03/23/19 19:30 73 31 97 Facial 80 77 30 99 Bi-Pap 80 03/23/19 16:39 76 30 94 Facial 80 03/23/19 16:00 Bi-pap 03/23/19 16:00 80 03/23/19 16:00 76 03/23/19 15:29 97.4 77 30 113/47 (69) 94 03/23/19 14:49 124/53 03/23/19 14:46 80 33 98 Facial 80 03/23/19 13:40 79 34 98 Facial 80 80 32 99 Bi-Pap 03/23/19 12:00 Bi-pap 03/23/19 12:00 76 03/23/19 12:00 80 03/23/19 11:47 97.4 81 32 124/53 (76) 96 03/23/19 11:30 78 36 99 Facial 80 03/23/19 09:03 82 35 98 Facial 80 03/23/19 08:00 98.1 79 35 114/56 (75) 98 03/23/19 08:00 80 03/23/19 08:00 82 03/23/19 08:00 Bi-pap 03/23/19 07:30 79 32 99 Facial 80 80 32 99 Bi-Pap 03/23/19 07:30 99 Bi-Pap 80 03/23/19 05:02 115/69 03/23/19 04:45 80 39 97 Facial 80 03/23/19 04:00 Bi-pap 03/23/19 04:00 98.3 75 38 118/53 (74) 94 03/23/19 04:00 82 03/23/19 04:00 100 03/23/19 02:42 81 35 98 Facial 100 03/23/19 00:45 78 34 95 Facial 80 81 34 97 Bi-Pap 03/23/19 00:00 98.1 91 28 100/47 (64) 94 03/23/19 00:00 Bi-pap 03/23/19 00:00 30 03/23/19 00:00 81 03/22/19 22:52 82 35 93 Facial 80 03/22/19 21:50 108/67 03/22/19 21:00 75 106/65 03/22/19 20:42 84 35 91 Facial 70 03/22/19 20:00 97.7 87 29 105/58 (74) 94 03/22/19 20:00 87 03/22/19 20:00 30 03/22/19 20:00 Bi-pap 03/22/19 19:04 93 Bi-Pap 70 03/22/19 18:47 81 31 93 Facial 70 83 34 96 Bi-Pap 03/22/19 17:11 80 39 95 Facial 70 03/22/19 16:00 30 03/22/19 16:00 82 03/22/19 16:00 Bi-pap 03/22/19 15:51 98.1 84 30 123/52 (75) 92 03/22/19 15:28 81 26 95 Facial 70 03/22/19 15:13 112/49 03/22/19 13:43 83 40 92 Facial 70 85 39 98 Bi-Pap 03/22/19 12:53 82 44 97 Facial 70 03/22/19 12:00 81 03/22/19 12:00 30 03/22/19 12:00 Bi-pap 03/22/19 11:22 98.4 81 35 112/49 (70) 93 03/22/19 10:40 79 42 94 Facial 70 03/22/19 09:24 92 40 92 Facial 70 Intake and Output 03/23/19 03/24/19 19:00 07:00 Intake Total 874.25402 ml 660 ml Balance 874.81712 ml 660 ml IV Total 874.81549 ml 660 ml Labs Test 03/22/19 21:30 03/23/19 03:25 03/23/19 09:03 03/24/19 03:40 Arterial Blood pH 7.371 (7.350-7.450) 7.382 (7.350-7.450) Arterial Blood Partial Pressure CO2 53.7 mmHg (35.0-45.0) 52.8 mmHg (35.0-45.0) Arterial Blood Partial Pressure O2 56.3 mmHg (75.0-100.0) 68.7 mmHg (75.0-100.0) Arterial Blood HCO3 30.4 mmol/L (22.0-26.0) 30.7 mmol/L (22.0-26.0) Arterial Blood Oxygen Saturation 86.3 % (95-100) 92.5 % (95-100) Arterial Blood Base Excess 4.3 (-2-2) 4.7 (-2-2) Wyatt Test Positive Positive White Blood Count 20.8 K/UL (4.8-10.8) 16.5 K/UL (4.8-10.8) Red Blood Count 3.10 M/UL (4.70-6.10) 2.86 M/UL (4.70-6.10) Hemoglobin 9.7 G/DL (14.2-18.0) 9.0 G/DL (14.2-18.0) Hematocrit 30.5 % (42.0-52.0) 28.3 % (42.0-52.0) Mean Corpuscular Volume 98 FL (80-99) 99 FL (80-99) Mean Corpuscular Hemoglobin 31.3 PG (27.0-31.0) 31.5 PG (27.0-31.0) Mean Corpuscular Hemoglobin Concent 31.8 G/DL (32.0-36.0) 31.8 G/DL (32.0-36.0) Red Cell Distribution Width 15.2 % (11.6-14.8) 15.2 % (11.6-14.8) Platelet Count 226 K/UL (150-450) 216 K/UL (150-450) Mean Platelet Volume 7.5 FL (6.5-10.1) 7.1 FL (6.5-10.1) Neutrophils (%) (Auto) % (45.0-75.0) % (45.0-75.0) Lymphocytes (%) (Auto) % (20.0-45.0) % (20.0-45.0) Monocytes (%) (Auto) % (1.0-10.0) % (1.0-10.0) Eosinophils (%) (Auto) % (0.0-3.0) % (0.0-3.0) Basophils (%) (Auto) % (0.0-2.0) % (0.0-2.0) Differential Total Cells Counted 100 100 Neutrophils % (Manual) 93 % (45-75) 87 % (45-75) Lymphocytes % (Manual) 3 % (20-45) 5 % (20-45) Monocytes % (Manual) 4 % (1-10) 6 % (1-10) Eosinophils % (Manual) 0 % (0-3) 1 % (0-3) Basophils % (Manual) 0 % (0-2) 1 % (0-2) Band Neutrophils 0 % (0-8) 0 % (0-8) Platelet Estimate Adequate Adequate Platelet Morphology Normal Normal Hypochromasia 1+ 2+ Anisocytosis 1+ 1+ Sodium Level 144 MMOL/L (136-145) 137 MMOL/L (136-145) Potassium Level 4.2 MMOL/L (3.5-5.1) 4.0 MMOL/L (3.5-5.1) Chloride Level 103 MMOL/L (98-107) 101 MMOL/L (98-107) Carbon Dioxide Level 30 MMOL/L (21-32) 28 MMOL/L (21-32) Anion Gap 11 mmol/L (5-15) 8 mmol/L (5-15) Blood Urea Nitrogen 60 mg/dL (7-18) 71 mg/dL (7-18) Creatinine 7.1 MG/DL (0.55-1.30) 7.6 MG/DL (0.55-1.30) Estimat Glomerular Filtration Rate mL/min (>60) mL/min (>60) Glucose Level 199 MG/DL (74-106) 484 MG/DL (74-106) Uric Acid 7.0 MG/DL (2.6-7.2) 7.8 MG/DL (2.6-7.2) Calcium Level 8.9 MG/DL (8.5-10.1) 7.8 MG/DL (8.5-10.1) Phosphorus Level 4.3 MG/DL (2.5-4.9) 4.5 MG/DL (2.5-4.9) Magnesium Level 2.6 MG/DL (1.8-2.4) 2.2 MG/DL (1.8-2.4) Total Bilirubin 0.7 MG/DL (0.2-1.0) 0.5 MG/DL (0.2-1.0) Aspartate Amino Transf (AST/SGOT) 20 U/L (15-37) 20 U/L (15-37) Alanine Aminotransferase (ALT/SGPT) 11 U/L (12-78) 8 U/L (12-78) Alkaline Phosphatase 130 U/L (46-116) 105 U/L (46-116) Troponin I 0.059 ng/mL (0.000-0.056) C-Reactive Protein, Quantitative > 70.0 mg/dL (0.00-0.90) 46.7 mg/dL (0.00-0.90) Pro-B-Type Natriuretic Peptide > 11322 pg/mL (0-125) > 62429 pg/mL (0-125) Total Protein 7.3 G/DL (6.4-8.2) 6.6 G/DL (6.4-8.2) Albumin 2.2 G/DL (3.4-5.0) 1.7 G/DL (3.4-5.0) Globulin 5.1 g/dL 4.9 g/dL Albumin/Globulin Ratio 0.4 (1.0-2.7) 0.3 (1.0-2.7) Lactic Acid Level 1.20 mmol/L (0.4-2.0) Gamma Glutamyl Transpeptidase 25 U/L (5-85) Total Creatine Kinase 22 U/L (26-308) Test 03/24/19 04:00 Troponin I 0.027 ng/mL (0.000-0.056) Height (Feet): 5 Height (Inches): 5.00 Weight (Pounds): 129 Objective Vitals: reviewed, normal Gen: no apparent distress, alert, GCS 15, non-toxic HEENT: normocephalic, atraumatic Resp: chest non-tender, lungs clear, normal Bss, BIPAP++ CV: rrr, no edema, no gallop, no JVD, no murmur Gastrointestinal: normal bowel sounds, non tender, soft, non-distended Msk: normal range of motion, non-tender, calf tenderness, + AV access LUE + thrill + bruit Neurologic: alert, oriented x3, responsive Psychiatric: judgement/insight normal, memory normal, depressed affect Reflexes: 3+ knee (L), 3+ ankle (R) Skin: normal color, no rash, warm/dry, well hydrated Lymphatic: no trip Gigi Aguirre MD Mar 24, 2019 08:40
--- NOTE | 2019-03-24 09:37 | NUR ---
PT DISCHARGE NOTE Patient being seen by PT for therapeutic exercises and therapeutic activities. Patient's participation and progress limited due to medical condition and cognitive status. Patient has been unable to participate with mobility activities due to respiratory status. Skilled inpatient PT intervention no longer indicated due to limited participation and progress. Patient will be discharged from PT at this time and can be re-ordered should patient's medical and cognitive status improve. Sylvia SIERRA notified.
[2019-03-24] MEDS: D5 1/2NS 1,000 ML IV SCH (09:56)
[2019-03-24] MEDS: Flonase Nasal Inhaler 16gm NASAL SCH (09:57)
--- NOTE | 2019-03-24 11:59 | Infectious Diseases Prog Note ---
Assessment/Plan Assessment/Plan IMPRESSION: 1. Leukocytosis, 2. Lactic acidosis. 3.Doubt sepsis 4. [id number] RI. 5. End-stage renal disease, on hemodialysis. 6. Diabetes mellitus, type 2. 7. Hypertension. 8. BPH. 9. Systolic CHF with ejection fraction of 40%. 10. Dysphagia 11. Hypoxemia 12. Pneumonia worsening 13. Anemia 14. Thrombocytopenia RECOMMENDATIONS: Continue Zosyn DNR, DNI on palliative care Subjective ROS Limited/Unobtainable: Yes Constitutional: Denies: fever Neurologic: Reports: confusion, other - on restraint Allergies: Coded Allergies: No Known Allergies (Unverified , 05/25/13) Objective Vital Signs Last 24 Hour Vital Signs Date Time Temp Pulse Resp B/P (MAP) Pulse Ox O2 Delivery O2 Flow Rate FiO2 03/24/19 08:45 68 26 100 Full Face 80 03/24/19 08:22 69 96/41 03/24/19 08:00 80 03/24/19 07:14 67 27 100 Bi-Pap 80 03/24/19 07:13 100 Bi-Pap 80 03/24/19 07:03 67 27 100 Full Face 80 03/24/19 06:00 98/50 03/24/19 05:07 68 30 97 Full Face 80 03/24/19 04:00 97.6 70 32 98/50 (66) 9 03/24/19 04:00 69 03/24/19 04:00 80 03/24/19 04:00 Bi-pap 03/24/19 03:20 71 16 99 Full Face 80 03/24/19 01:30 71 36 98 Facial 80 74 34 99 Bi-Pap 80 03/24/19 00:00 73 03/24/19 00:00 Bi-pap 03/24/19 00:00 80 03/24/19 00:00 97.8 74 34 112/57 (75) 9 03/23/19 23:30 74 31 95 Full Face 80 03/23/19 21:07 77 33 93 Facial 80 03/23/19 21:04 113/70 03/23/19 20:26 80 117/79 03/23/19 20:00 97 Bi-Pap 80 03/23/19 20:00 80 03/23/19 20:00 97.2 74 33 117/79 (92) 98 03/23/19 20:00 Bi-pap 03/23/19 20:00 72 03/23/19 19:30 73 31 97 Facial 80 77 30 99 Bi-Pap 80 03/23/19 16:39 76 30 94 Facial 80 03/23/19 16:00 Bi-pap 03/23/19 16:00 80 03/23/19 16:00 76 03/23/19 15:29 97.4 77 30 113/47 (69) 94 03/23/19 14:49 124/53 03/23/19 14:46 80 33 98 Facial 80 03/23/19 13:40 79 34 98 Facial 80 80 32 99 Bi-Pap 03/23/19 12:00 Bi-pap 03/23/19 12:00 76 03/23/19 12:00 80 Height (Feet): 5 Height (Inches): 5.00 Weight (Pounds): 129 HEENT: mucous membranes moist Respiratory/Chest: decreased breath sounds, other - on BIPAP Cardiovascular: normal rate, other - Left arm AV shunt Abdomen: soft, non tender Extremities: no edema Neurologic/Psychiatric: other - lethargic Laboratory Tests Test 03/24/19 03:40 03/24/19 04:00 White Blood Count 16.5 K/UL (4.8-10.8) H Red Blood Count 2.86 M/UL (4.70-6.10) L Hemoglobin 9.0 G/DL (14.2-18.0) L Hematocrit 28.3 % (42.0-52.0) L Mean Corpuscular Volume 99 FL (80-99) Mean Corpuscular Hemoglobin 31.5 PG (27.0-31.0) H Mean Corpuscular Hemoglobin Concent 31.8 G/DL (32.0-36.0) L Red Cell Distribution Width 15.2 % (11.6-14.8) H Platelet Count 216 K/UL (150-450) Mean Platelet Volume 7.1 FL (6.5-10.1) Neutrophils (%) (Auto) % (45.0-75.0) Lymphocytes (%) (Auto) % (20.0-45.0) Monocytes (%) (Auto) % (1.0-10.0) Eosinophils (%) (Auto) % (0.0-3.0) Basophils (%) (Auto) % (0.0-2.0) Differential Total Cells Counted 100 Neutrophils % (Manual) 87 % (45-75) H Lymphocytes % (Manual) 5 % (20-45) L Monocytes % (Manual) 6 % (1-10) Eosinophils % (Manual) 1 % (0-3) Basophils % (Manual) 1 % (0-2) Band Neutrophils 0 % (0-8) Platelet Estimate Adequate Platelet Morphology Normal Hypochromasia 2+ Anisocytosis 1+ Sodium Level 137 MMOL/L (136-145) Potassium Level 4.0 MMOL/L (3.5-5.1) Chloride Level 101 MMOL/L (98-107) Carbon Dioxide Level 28 MMOL/L (21-32) Anion Gap 8 mmol/L (5-15) Blood Urea Nitrogen 71 mg/dL (7-18) H Creatinine 7.6 MG/DL (0.55-1.30) H Estimat Glomerular Filtration Rate mL/min (>60) Glucose Level 484 MG/DL (74-106) #H Lactic Acid Level 1.20 mmol/L (0.4-2.0) Uric Acid 7.8 MG/DL (2.6-7.2) H Calcium Level 7.8 MG/DL (8.5-10.1) L Phosphorus Level 4.5 MG/DL (2.5-4.9) Magnesium Level 2.2 MG/DL (1.8-2.4) Total Bilirubin 0.5 MG/DL (0.2-1.0) Gamma Glutamyl Transpeptidase 25 U/L (5-85) Aspartate Amino Transf (AST/SGOT) 20 U/L (15-37) Alanine Aminotransferase (ALT/SGPT) 8 U/L (12-78) L Alkaline Phosphatase 105 U/L (46-116) Total Creatine Kinase 22 U/L (26-308) L C-Reactive Protein, Quantitative 46.7 mg/dL (0.00-0.90) H Pro-B-Type Natriuretic Peptide > 50511 pg/mL (0-125) H Total Protein 6.6 G/DL (6.4-8.2) Albumin 1.7 G/DL (3.4-5.0) L Globulin 4.9 g/dL Albumin/Globulin Ratio 0.3 (1.0-2.7) L Cortisol AM Sample 12.6 UG/DL Troponin I 0.027 ng/mL (0.000-0.056) Current Medications Medications (Trade) Dose Ordered Sig/Stephany Route PRN Reason Start Time Stop Time Status Last Admin Dose Admin Acetaminophen (Tylenol) 650 mg Q6H PRN ORAL Mild Pain/Temp > 100.5 03/09/19 07:01 04/07/19 07:00 03/10/19 03:10 Albumin Human 100 ml @ 100 mls/hr ONCE ONCE IV 03/24/19 12:00 03/24/19 12:59 Albuterol/ Ipratropium (Albuterol/ Ipratropium) 3 ml Q4H PRN HHN Shortness of Breath 03/20/19 15:15 03/25/19 15:14 Albuterol/ Ipratropium (Albuterol/ Ipratropium) 3 ml Q6HRT HHN 03/20/19 19:00 03/25/19 18:59 03/24/19 07:13 Apixaban (Eliquis) 2.5 mg BID ORAL 03/21/19 09:00 04/20/19 08:59 Aspirin (ASA) 81 mg DAILY NG 03/16/19 09:00 04/07/19 08:59 03/16/19 08:19 Carvedilol (Coreg) 3.125 mg EVERY 12 HOURS NG 03/15/19 21:00 04/09/19 20:59 03/16/19 08:19 Cefepime HCl 500 mg/Dextrose 55 ml @ 110 mls/hr Q24H IV 03/19/19 21:00 03/26/19 20:59 03/23/19 21:03 Dextrose (Dextrose 50%) 25 ml Q30M PRN IV Hypoglycemia 03/09/19 07:00 04/07/19 06:59 Dextrose (Dextrose 50%) 50 ml Q30M PRN IV Hypoglycemia 03/09/19 07:00 04/07/19 06:59 Dextrose/Sodium Chloride 1,000 ml @ 50 mls/hr Q20H IV 03/23/19 11:15 04/22/19 11:14 03/24/19 09:56 Docusate Sodium (Colace) 100 mg THREE TIMES A DAY ORAL 03/21/19 13:00 04/20/19 12:59 Epoetin Best (Epoetin Best(ESRD on dialysis)) 2,000 unit SUN- SUBQ 03/24/19 21:00 04/23/19 20:59 Epoetin Best (Epoetin Best(ESRD on dialysis)) 3,000 unit SUBQ 03/24/19 21:00 04/23/19 20:59 Finasteride (Proscar) 5 mg DAILY ORAL 03/16/19 09:00 04/07/19 08:59 03/16/19 08:11 Fluticasone Propionate (Flonase) 2 spray DAILY NASAL 03/09/19 09:00 04/07/19 08:59 03/24/19 09:57 Guaifenesin/ Codeine Phosphate (Robitussin with codeine) 5 ml Q4H PRN ORAL For Cough 03/09/19 07:00 04/07/19 06:59 03/10/19 03:09 Hydralazine HCl (Apresoline) 25 mg Q4H PRN NG bp over 160 syst 03/15/19 19:03 04/07/19 07:02 Isosorbide Dinitrate (Isordil) 10 mg Q8HR ORAL 03/21/19 14:00 04/20/19 13:59 Nitroglycerin (Ntg) 1 patch Q24H TDERMAL 03/09/19 14:30 04/08/19 14:29 03/23/19 14:49 Ondansetron HCl (Zofran) 4 mg Q4H PRN IVP Nausea & Vomiting 03/09/19 07:03 04/08/19 07:02 03/10/19 03:09 Pantoprazole (Protonix) 40 mg EVERY 12 HOURS ORAL 03/21/19 21:00 04/20/19 20:59 Risperidone (RisperDAL) 1 mg BEDTIME NG 03/15/19 21:00 04/11/19 20:59 03/15/19 21:04 Sevelamer Carbonate (Renvela) 1,600 mg THREE TIMES A DAY NG 03/15/19 18:00 04/14/19 17:59 03/16/19 17:26 Tamsulosin HCl (Flomax) 0.4 mg BEDTIME ORAL 03/09/19 21:00 04/07/19 20:59 03/15/19 21:04 Boyd Tee MD Mar 24, 2019 11:59
[2019-03-24 12:00] VITALS: BP 95/44
--- NOTE | 2019-03-24 12:00 | NUR ---
UNABLE TO COMPLETE DIALYSIS BP DROP TO [address] MACEDO NOTEFIED BY DIALYSIS NURSE
--- NOTE | 2019-03-24 14:09 | NUR ---
[facility] SI: RESP FAILURE,LEUKOCYTOSIS T. 96.8 HR 67 RR 32 BIPAP FIO2 80% WBC 16.5 BUN 71 CR 7.6 BNP>[id number] IS: IVF D5NS @ 50ML/HR CEFEPIME IV ALB HHN APRESOLINE STEP DOWN STATUS
--- NOTE | 2019-03-24 14:20 | Nephrology Progress Note ---
Assessment/Plan Problem List: (1) ESRD (end stage renal disease) on dialysis (2) Cardiomyopathy (3) NSTEMI (non-ST elevated myocardial infarction) Assessment: Troponin lowering (4) Acute respiratory failure with hypoxia and hypercapnia Assessment ESRD- HTN Anemia DM CAD- Cardiomyopathy s/p SEPSIS IN Plan seen during dialysis - BP low leukocytosis improving ? Aspirated one time Vanco and Zosyn until ID re-eval recent 2D echo 40% EjFx Pulm Toilet and support HD 03/19 next 03/21 next 03/24 Keep BP in check - Hold bp meds for now due to low BP Albumin bolus ASA Nitrate per consultants per orders ? need for PEG as NGt always pulled out ? discussed with Dr Cornelius and Estelita Subjective ROS Limited/Unobtainable: No Constitutional: Reports: malaise, weakness Objective Objective Last 24 Hour Vital Signs Date Time Temp Pulse Resp B/P (MAP) Pulse Ox O2 Delivery O2 Flow Rate FiO2 03/24/19 12:18 80 03/24/19 12:00 67 03/24/19 12:00 96.8 67 25 95/44 (61) 100 03/24/19 12:00 Bi-pap 03/24/19 11:28 68 33 100 Full Face 80 03/24/19 08:45 68 26 100 Full Face 80 03/24/19 08:22 69 96/41 03/24/19 08:00 83 03/24/19 08:00 80 03/24/19 08:00 Bi-pap 03/24/19 08:00 96.4 69 32 96/41 (59) 99 03/24/19 07:14 67 27 100 Bi-Pap 80 03/24/19 07:13 100 Bi-Pap 80 03/24/19 07:03 67 27 100 Full Face 80 03/24/19 06:00 98/50 03/24/19 05:07 68 30 97 Full Face 80 03/24/19 04:00 97.6 70 32 98/50 (66) 9 03/24/19 04:00 69 03/24/19 04:00 80 03/24/19 04:00 Bi-pap 03/24/19 03:20 71 16 99 Full Face 80 03/24/19 01:30 71 36 98 Facial 80 74 34 99 Bi-Pap 80 03/24/19 00:00 73 03/24/19 00:00 Bi-pap 03/24/19 00:00 80 03/24/19 00:00 97.8 74 34 112/57 (75) 9 03/23/19 23:30 74 31 95 Full Face 80 03/23/19 21:07 77 33 93 Facial 80 03/23/19 21:04 113/70 03/23/19 20:26 80 117/79 03/23/19 20:00 97 Bi-Pap 80 03/23/19 20:00 80 03/23/19 20:00 97.2 74 33 117/79 (92) 98 03/23/19 20:00 Bi-pap 03/23/19 20:00 72 03/23/19 19:30 73 31 97 Facial 80 77 30 99 Bi-Pap 80 03/23/19 16:39 76 30 94 Facial 80 03/23/19 16:00 Bi-pap 03/23/19 16:00 80 03/23/19 16:00 76 03/23/19 15:29 97.4 77 30 113/47 (69) 94 03/23/19 14:49 124/53 03/23/19 14:46 80 33 98 Facial 80 Intake and Output 03/23/19 03/24/19 19:00 07:00 Intake Total 874.43406 ml 660 ml Balance 874.72977 ml 660 ml IV Total 874.54327 ml 660 ml Laboratory Tests 03/24/19 03:40: White Blood Count 16.5H, Red Blood Count 2.86L, Hemoglobin 9.0L, Hematocrit 28.3L, Mean Corpuscular Volume 99, Mean Corpuscular Hemoglobin 31.5H, Mean Corpuscular Hemoglobin Concent 31.8L, Red Cell Distribution Width 15.2H, Platelet Count 216, Mean Platelet Volume 7.1, Neutrophils (%) (Auto) , Lymphocytes (%) (Auto) , Monocytes (%) (Auto) , Eosinophils (%) (Auto) , Basophils (%) (Auto) , Differential Total Cells Counted 100, Neutrophils % ( Manual) 87H, Lymphocytes % (Manual) 5L, Monocytes % (Manual) 6, Eosinophils % ( Manual) 1, Basophils % (Manual) 1, Band Neutrophils 0, Platelet Estimate Adequate, Platelet Morphology Normal, Hypochromasia 2+, Anisocytosis 1+, Sodium Level 137, Potassium Level 4.0, Chloride Level 101, Carbon Dioxide Level 28, Anion Gap 8, Blood Urea Nitrogen 71H, Creatinine 7.6H, Estimat Glomerular Filtration Rate , Glucose Level 484#H, Lactic Acid Level 1.20, Uric Acid 7.8H, Calcium Level 7.8L, Phosphorus Level 4.5, Magnesium Level 2.2, Total Bilirubin 0.5, Gamma Glutamyl Transpeptidase 25, Aspartate Amino Transf (AST/SGOT) 20, Alanine Aminotransferase (ALT/SGPT) 8L, Alkaline Phosphatase 105, Total Creatine Kinase 22L, C-Reactive Protein, Quantitative 46.7H, Pro-B-Type Natriuretic Peptide > 33497N, Total Protein 6.6, Albumin 1.7L, Globulin 4.9, Albumin/Globulin Ratio 0.3L, Cortisol AM Sample 12.6 03/24/19 04:00: Troponin I 0.027 Height (Feet): 5 Height (Inches): 5.00 Weight (Pounds): 129 General Appearance: mild distress EENT: other - BIPAP Respiratory/Chest: decreased breath sounds Abdomen: distended Objective no change Mikey Brandt MD Mar 24, 2019 14:20
--- NOTE | 2019-03-24 14:26 | Pulmonology Progress Note ---
Assessment/Plan Problems: (1) NSTEMI (non-ST elevated myocardial infarction) (2) ESRD (end stage renal disease) on dialysis (3) Cardiomyopathy (4) HTN (hypertension) (5) HLD (hyperlipidemia) (6) CVA (cerebral vascular accident) Assessment/Plan ASSESSMENT: The patient is an 83-year-old male with a history of prior CVA, end -stage renal disease, on dialysis, hypertension, hyperlipidemia, CAD, CVA, and BPH presenting with dizziness and [id number] DC. He is fairly stable from a respiratory standpoint. PROBLEM LIST: 1. Non ST-elevation myocardial infarction. 2. Recent pneumonia. 3. Dizziness. 4. End-stage renal disease, on dialysis. 5. CAD. 6. Hypertension. 7. Hyperlipidemia. 8. Anemia. 9. Diabetes. TREATMENT PLAN: NO escalation, no ICU transfer Optimize pulmonary hygiene/mobilize as tolerated. Continue BiPAP for now, attempt to wean off Titrate O2 HHN's Abx: Cefepime per ID Follow up Cardiology recommendations, medical management of non-STEMI. DVT Px: Eliquis 2.5 BID Monitor volumes and renal function, dialysis per Renal/UF as tolerated DNAR/DNI Subjective Allergies: Coded Allergies: No Known Allergies (Unverified , 05/25/13) Subjective On BiPAP lethargic no cough + SOB Objective Last 24 Hour Vital Signs Date Time Temp Pulse Resp B/P (MAP) Pulse Ox O2 Delivery O2 Flow Rate FiO2 03/24/19 13:30 69 30 100 Full Face 80 03/24/19 12:18 80 03/24/19 12:00 67 03/24/19 12:00 96.8 67 25 95/44 (61) 100 03/24/19 12:00 Bi-pap 03/24/19 11:28 68 33 100 Full Face 80 03/24/19 08:45 68 26 100 Full Face 80 03/24/19 08:22 69 96/41 03/24/19 08:00 83 03/24/19 08:00 80 03/24/19 08:00 Bi-pap 03/24/19 08:00 96.4 69 32 96/41 (59) 99 03/24/19 07:14 67 27 100 Bi-Pap 80 03/24/19 07:13 100 Bi-Pap 80 03/24/19 07:03 67 27 100 Full Face 80 03/24/19 06:00 98/50 03/24/19 05:07 68 30 97 Full Face 80 03/24/19 04:00 97.6 70 32 98/50 (66) 9 03/24/19 04:00 69 03/24/19 04:00 80 03/24/19 04:00 Bi-pap 03/24/19 03:20 71 16 99 Full Face 80 03/24/19 01:30 71 36 98 Facial 80 74 34 99 Bi-Pap 80 03/24/19 00:00 73 03/24/19 00:00 Bi-pap 03/24/19 00:00 80 03/24/19 00:00 97.8 74 34 112/57 (75) 9 03/23/19 23:30 74 31 95 Full Face 80 03/23/19 21:07 77 33 93 Facial 80 03/23/19 21:04 113/70 03/23/19 20:26 80 117/79 03/23/19 20:00 97 Bi-Pap 80 03/23/19 20:00 80 03/23/19 20:00 97.2 74 33 117/79 (92) 98 03/23/19 20:00 Bi-pap 03/23/19 20:00 72 03/23/19 19:30 73 31 97 Facial 80 77 30 99 Bi-Pap 80 03/23/19 16:39 76 30 94 Facial 80 03/23/19 16:00 Bi-pap 03/23/19 16:00 80 03/23/19 16:00 76 03/23/19 15:29 97.4 77 30 113/47 (69) 94 03/23/19 14:49 124/53 03/23/19 14:46 80 33 98 Facial 80 Intake and Output 03/23/19 03/24/19 19:00 07:00 Intake Total 874.17708 ml 660 ml Balance 874.10802 ml 660 ml IV Total 874.56701 ml 660 ml General Appearance: cachetic - on bipap HEENT: normocephalic, atraumatic, anicteric, mucous membranes moist, other Respiratory/Chest: crackles/rales, rhonchi Cardiovascular: normal peripheral pulses, normal rate, regular rhythm Abdomen: normal bowel sounds, soft, non tender, no organomegaly, non distended Extremities: no cyanosis, no clubbing, no edema Laboratory Tests 03/24/19 03:40: White Blood Count 16.5H, Red Blood Count 2.86L, Hemoglobin 9.0L, Hematocrit 28.3L, Mean Corpuscular Volume 99, Mean Corpuscular Hemoglobin 31.5H, Mean Corpuscular Hemoglobin Concent 31.8L, Red Cell Distribution Width 15.2H, Platelet Count 216, Mean Platelet Volume 7.1, Neutrophils (%) (Auto) , Lymphocytes (%) (Auto) , Monocytes (%) (Auto) , Eosinophils (%) (Auto) , Basophils (%) (Auto) , Differential Total Cells Counted 100, Neutrophils % ( Manual) 87H, Lymphocytes % (Manual) 5L, Monocytes % (Manual) 6, Eosinophils % ( Manual) 1, Basophils % (Manual) 1, Band Neutrophils 0, Platelet Estimate Adequate, Platelet Morphology Normal, Hypochromasia 2+, Anisocytosis 1+, Sodium Level 137, Potassium Level 4.0, Chloride Level 101, Carbon Dioxide Level 28, Anion Gap 8, Blood Urea Nitrogen 71H, Creatinine 7.6H, Estimat Glomerular Filtration Rate , Glucose Level 484#H, Lactic Acid Level 1.20, Uric Acid 7.8H, Calcium Level 7.8L, Phosphorus Level 4.5, Magnesium Level 2.2, Total Bilirubin 0.5, Gamma Glutamyl Transpeptidase 25, Aspartate Amino Transf (AST/SGOT) 20, Alanine Aminotransferase (ALT/SGPT) 8L, Alkaline Phosphatase 105, Total Creatine Kinase 22L, C-Reactive Protein, Quantitative 46.7H, Pro-B-Type Natriuretic Peptide > 17924F, Total Protein 6.6, Albumin 1.7L, Globulin 4.9, Albumin/Globulin Ratio 0.3L, Cortisol AM Sample 12.6 03/24/19 04:00: Troponin I 0.027 Current Medications Medications (Trade) Dose Ordered Sig/Stephany Route PRN Reason Start Time Stop Time Status Last Admin Dose Admin Acetaminophen (Tylenol) 650 mg Q6H PRN ORAL Mild Pain/Temp > 100.5 03/09/19 07:01 04/07/19 07:00 03/10/19 03:10 Albuterol/ Ipratropium (Albuterol/ Ipratropium) 3 ml Q4H PRN HHN Shortness of Breath 03/20/19 15:15 03/25/19 15:14 Albuterol/ Ipratropium (Albuterol/ Ipratropium) 3 ml Q6HRT HHN 03/20/19 19:00 03/25/19 18:59 03/24/19 07:13 Apixaban (Eliquis) 2.5 mg BID ORAL 03/21/19 09:00 04/20/19 08:59 Aspirin (ASA) 81 mg DAILY NG 03/16/19 09:00 04/07/19 08:59 03/16/19 08:19 Carvedilol (Coreg) 3.125 mg EVERY 12 HOURS NG 03/15/19 21:00 04/09/19 20:59 03/16/19 08:19 Cefepime HCl 500 mg/Dextrose 55 ml @ 110 mls/hr Q24H IV 03/19/19 21:00 03/26/19 20:59 03/23/19 21:03 Dextrose (Dextrose 50%) 25 ml Q30M PRN IV Hypoglycemia 03/09/19 07:00 04/07/19 06:59 Dextrose (Dextrose 50%) 50 ml Q30M PRN IV Hypoglycemia 03/09/19 07:00 04/07/19 06:59 Dextrose/Sodium Chloride 1,000 ml @ 50 mls/hr Q20H IV 03/23/19 11:15 04/22/19 11:14 03/24/19 09:56 Docusate Sodium (Colace) 100 mg THREE TIMES A DAY ORAL 03/21/19 13:00 04/20/19 12:59 Epoetin Best (Epoetin Best(ESRD on dialysis)) 2,000 unit SUN-SUN-SUN SUBQ 03/24/19 21:00 04/23/19 20:59 Epoetin Best (Epoetin Best(ESRD on dialysis)) 3,000 unit SUN-SUN-SUN SUBQ 03/24/19 21:00 04/23/19 20:59 Finasteride (Proscar) 5 mg DAILY ORAL 03/16/19 09:00 04/07/19 08:59 03/16/19 08:11 Fluticasone Propionate (Flonase) 2 spray DAILY NASAL 03/09/19 09:00 04/07/19 08:59 03/24/19 09:57 Guaifenesin/ Codeine Phosphate (Robitussin with codeine) 5 ml Q4H PRN ORAL For Cough 03/09/19 07:00 04/07/19 06:59 03/10/19 03:09 Hydralazine HCl (Apresoline) 25 mg Q4H PRN NG bp over 160 syst 03/15/19 19:03 04/07/19 07:02 Isosorbide Dinitrate (Isordil) 10 mg Q8HR ORAL 03/21/19 14:00 04/20/19 13:59 Nitroglycerin (Ntg) 1 patch Q24H TDERMAL 03/09/19 14:30 04/08/19 14:29 03/23/19 14:49 Ondansetron HCl (Zofran) 4 mg Q4H PRN IVP Nausea & Vomiting 03/09/19 07:03 04/08/19 07:02 03/10/19 03:09 Pantoprazole (Protonix) 40 mg EVERY 12 HOURS ORAL 03/21/19 21:00 04/20/19 20:59 Risperidone (RisperDAL) 1 mg BEDTIME NG 03/15/19 21:00 04/11/19 20:59 03/15/19 21:04 Sevelamer Carbonate (Renvela) 1,600 mg THREE TIMES A DAY NG 03/15/19 18:00 04/14/19 17:59 03/16/19 17:26 Tamsulosin HCl (Flomax) 0.4 mg BEDTIME ORAL 03/09/19 21:00 04/07/19 20:59 03/15/19 21:04 Thaddeus Cornelius MD Mar 24, 2019 14:26
[2019-03-24] MEDS: Nitroglycerin Patch 0.4mg TDERMAL SCH (14:30)
--- NOTE | 2019-03-24 15:06 | Cardiac Electrophysiology PN ---
Assessment/Plan Assessment/Plan 1. Troponin elevation due to renal failure. Troponin peak 3.5 down to 1.88. Confused in restraints. No CP or SOB. EKG no acute changes. EF 40 % On aspirin, Coreg 3.125 bid and Lipitor. Treat medically 2. Cardiomyopathy with EF of 40%. BNP is more than 35,000. Echo on 02/02/2019 showed EF of 55% to 60%, repeat echo EF 40%. On Coreg, Lisinopril 10 daily and HD 3. On Eliquis for CVA and PVD. No Fib or DVT or PE 4. End-stage renal disease, on hemodialysis. 5. Lactic acidosis. 6. Hyperlipidemia, on Lipitor. 7. Dysphagia. Family refused PEG or NG tube feeding. D [address] Bloom 8. Respiratory failure on BIPAP. DW RN DNR and DNI Subjective Subjective On BIPAP and D5W iv fluid. No NGT or consent for PEG.RN at bedside. Didn't get HD as BP dropped Objective Last 24 Hour Vital Signs Date Time Temp Pulse Resp B/P (MAP) Pulse Ox O2 Delivery O2 Flow Rate FiO2 03/24/19 13:30 69 30 100 Full Face 80 03/24/19 12:18 80 03/24/19 12:00 67 03/24/19 12:00 96.8 67 25 95/44 (61) 100 03/24/19 12:00 Bi-pap 03/24/19 11:28 68 33 100 Full Face 80 03/24/19 08:45 68 26 100 Full Face 80 03/24/19 08:22 69 96/41 03/24/19 08:00 83 03/24/19 08:00 80 03/24/19 08:00 Bi-pap 03/24/19 08:00 96.4 69 32 96/41 (59) 99 03/24/19 07:14 67 27 100 Bi-Pap 80 03/24/19 07:13 100 Bi-Pap 80 03/24/19 07:03 67 27 100 Full Face 80 03/24/19 06:00 98/50 03/24/19 05:07 68 30 97 Full Face 80 03/24/19 04:00 97.6 70 32 98/50 (66) 9 03/24/19 04:00 69 03/24/19 04:00 80 03/24/19 04:00 Bi-pap 03/24/19 03:20 71 16 99 Full Face 80 03/24/19 01:30 71 36 98 Facial 80 74 34 99 Bi-Pap 80 03/24/19 00:00 73 03/24/19 00:00 Bi-pap 03/24/19 00:00 80 03/24/19 00:00 97.8 74 34 112/57 (75) 9 03/23/19 23:30 74 31 95 Full Face 80 03/23/19 21:07 77 33 93 Facial 80 03/23/19 21:04 113/70 03/23/19 20:26 80 117/79 03/23/19 20:00 97 Bi-Pap 80 03/23/19 20:00 80 03/23/19 20:00 97.2 74 33 117/79 (92) 98 03/23/19 20:00 Bi-pap 03/23/19 20:00 72 03/23/19 19:30 73 31 97 Facial 80 77 30 99 Bi-Pap 80 03/23/19 16:39 76 30 94 Facial 80 03/23/19 16:00 Bi-pap 03/23/19 16:00 80 03/23/19 16:00 76 03/23/19 15:29 97.4 77 30 113/47 (69) 94 Intake and Output 03/23/19 03/24/19 19:00 07:00 Intake Total 874.90164 ml 660 ml Balance 874.77860 ml 660 ml IV Total 874.20049 ml 660 ml Laboratory Tests Test 03/24/19 03:40 03/24/19 04:00 White Blood Count 16.5 K/UL (4.8-10.8) H Red Blood Count 2.86 M/UL (4.70-6.10) L Hemoglobin 9.0 G/DL (14.2-18.0) L Hematocrit 28.3 % (42.0-52.0) L Mean Corpuscular Volume 99 FL (80-99) Mean Corpuscular Hemoglobin 31.5 PG (27.0-31.0) H Mean Corpuscular Hemoglobin Concent 31.8 G/DL (32.0-36.0) L Red Cell Distribution Width 15.2 % (11.6-14.8) H Platelet Count 216 K/UL (150-450) Mean Platelet Volume 7.1 FL (6.5-10.1) Neutrophils (%) (Auto) % (45.0-75.0) Lymphocytes (%) (Auto) % (20.0-45.0) Monocytes (%) (Auto) % (1.0-10.0) Eosinophils (%) (Auto) % (0.0-3.0) Basophils (%) (Auto) % (0.0-2.0) Differential Total Cells Counted 100 Neutrophils % (Manual) 87 % (45-75) H Lymphocytes % (Manual) 5 % (20-45) L Monocytes % (Manual) 6 % (1-10) Eosinophils % (Manual) 1 % (0-3) Basophils % (Manual) 1 % (0-2) Band Neutrophils 0 % (0-8) Platelet Estimate Adequate Platelet Morphology Normal Hypochromasia 2+ Anisocytosis 1+ Sodium Level 137 MMOL/L (136-145) Potassium Level 4.0 MMOL/L (3.5-5.1) Chloride Level 101 MMOL/L (98-107) Carbon Dioxide Level 28 MMOL/L (21-32) Anion Gap 8 mmol/L (5-15) Blood Urea Nitrogen 71 mg/dL (7-18) H Creatinine 7.6 MG/DL (0.55-1.30) H Estimat Glomerular Filtration Rate mL/min (>60) Glucose Level 484 MG/DL (74-106) #H Lactic Acid Level 1.20 mmol/L (0.4-2.0) Uric Acid 7.8 MG/DL (2.6-7.2) H Calcium Level 7.8 MG/DL (8.5-10.1) L Phosphorus Level 4.5 MG/DL (2.5-4.9) Magnesium Level 2.2 MG/DL (1.8-2.4) Total Bilirubin 0.5 MG/DL (0.2-1.0) Gamma Glutamyl Transpeptidase 25 U/L (5-85) Aspartate Amino Transf (AST/SGOT) 20 U/L (15-37) Alanine Aminotransferase (ALT/SGPT) 8 U/L (12-78) L Alkaline Phosphatase 105 U/L (46-116) Total Creatine Kinase 22 U/L (26-308) L C-Reactive Protein, Quantitative 46.7 mg/dL (0.00-0.90) H Pro-B-Type Natriuretic Peptide > 00143 pg/mL (0-125) H Total Protein 6.6 G/DL (6.4-8.2) Albumin 1.7 G/DL (3.4-5.0) L Globulin 4.9 g/dL Albumin/Globulin Ratio 0.3 (1.0-2.7) L Cortisol AM Sample 12.6 UG/DL Troponin I 0.027 ng/mL (0.000-0.056) Objective HEAD AND NECK: No JVD. BIPAP on LUNGS: Clear. CARDIOVASCULAR: Regular S1 and S2 with no gallop or murmur. ABDOMEN: Soft. EXTREMITIES: No pitting edema. Dialysis access in the left arm. Dariel Corcoran MD Mar 24, 2019 15:06
[2019-03-24] MEDS ORDERED: Tubing IV Secondary IV ONE (15:52)
[2019-03-24] MEDS ORDERED: D5 1/2NS 1000ml IV ONE (15:52)
[2019-03-24 16:00] VITALS: BP 110/50
--- NOTE | 2019-03-24 16:00 | NUR ---
WOUND CARE NURSE SAW THE PT
--- NOTE | 2019-03-24 19:05 | General Progress Note ---
Assessment/Plan Problem List: (1) Hypoglycemia ICD Codes: E16.2 - Hypoglycemia, unspecified SNOMED: 710106568 (2) Hemodialysis disequilibrium syndrome ICD Codes: E87.8 - Other disorders of electrolyte and fluid balance, not elsewhere classified SNOMED: 31101782 (3) NSTEMI (non-ST elevated myocardial infarction) ICD Codes: I21.4 - Non-ST elevation (NSTEMI) myocardial infarction SNOMED: 05346089 (4) ESRD (end stage renal disease) on dialysis ICD Codes: N18.6 - End stage renal disease; Z99.2 - Dependence on renal dialysis SNOMED: 376361420 (5) Diabetes ICD Codes: E11.9 - Type 2 diabetes mellitus without complications SNOMED: 35498046 (6) vascular dementia Assessment/Plan: glucose values are stable w/o hypoglycemia no need for diabetic medications continue to monitor glucose hypoglycemia protocol in order Subjective ROS Limited/Unobtainable: Yes Allergies: Coded Allergies: No Known Allergies (Unverified , 05/25/13) Subjective events noted glucose values are stable Item Value Date Time Bedside Blood Glucose 130 mg/dl H 03/24/19 1130 Bedside Blood Glucose 135 mg/dl H 03/24/19 0800 Bedside Blood Glucose 135 mg/dl H 03/24/19 0600 Bedside Blood Glucose 144 mg/dl H 03/24/19 0000 Bedside Blood Glucose 125 mg/dl H 03/23/19 1800 Objective Last 24 Hour Vital Signs Date Time Temp Pulse Resp B/P (MAP) Pulse Ox O2 Delivery O2 Flow Rate FiO2 03/24/19 17:25 68 23 100 Full Face 80 03/24/19 16:00 68 03/24/19 16:00 68 21 100 Full Face 80 03/24/19 16:00 96.1 69 24 110/50 (70) 100 03/24/19 16:00 Bi-pap 03/24/19 16:00 80 03/24/19 14:30 84/42 03/24/19 14:00 110/50 03/24/19 13:30 69 30 100 Full Face 80 03/24/19 12:18 80 03/24/19 12:00 67 03/24/19 12:00 96.8 67 25 95/44 (61) 100 03/24/19 12:00 Bi-pap 03/24/19 11:28 68 33 100 Full Face 80 03/24/19 08:45 68 26 100 Full Face 80 03/24/19 08:22 69 96/41 03/24/19 08:00 83 03/24/19 08:00 80 03/24/19 08:00 Bi-pap 03/24/19 08:00 96.4 69 32 96/41 (59) 99 03/24/19 07:14 67 27 100 Bi-Pap 80 03/24/19 07:13 100 Bi-Pap 80 03/24/19 07:03 67 27 100 Full Face 80 03/24/19 06:00 98/50 03/24/19 05:07 68 30 97 Full Face 80 03/24/19 04:00 97.6 70 32 98/50 (66) 9 03/24/19 04:00 69 03/24/19 04:00 80 03/24/19 04:00 Bi-pap 03/24/19 03:20 71 16 99 Full Face 80 03/24/19 01:30 71 36 98 Facial 80 74 34 99 Bi-Pap 80 03/24/19 00:00 73 03/24/19 00:00 Bi-pap 03/24/19 00:00 80 03/24/19 00:00 97.8 74 34 112/57 (75) 9 03/23/19 23:30 74 31 95 Full Face 80 03/23/19 21:07 77 33 93 Facial 80 03/23/19 21:04 113/70 03/23/19 20:26 80 117/79 03/23/19 20:00 97 Bi-Pap 80 03/23/19 20:00 80 03/23/19 20:00 97.2 74 33 117/79 (92) 98 03/23/19 20:00 Bi-pap 03/23/19 20:00 72 03/23/19 19:30 73 31 97 Facial 80 77 30 99 Bi-Pap 80 Intake and Output 03/23/19 03/24/19 19:00 07:00 Intake Total 874.71644 ml 660 ml Balance 874.65588 ml 660 ml IV Total 874.94766 ml 660 ml Laboratory Tests 03/24/19 03:40: White Blood Count 16.5H, Red Blood Count 2.86L, Hemoglobin 9.0L, Hematocrit 28.3L, Mean Corpuscular Volume 99, Mean Corpuscular Hemoglobin 31.5H, Mean Corpuscular Hemoglobin Concent 31.8L, Red Cell Distribution Width 15.2H, Platelet Count 216, Mean Platelet Volume 7.1, Neutrophils (%) (Auto) , Lymphocytes (%) (Auto) , Monocytes (%) (Auto) , Eosinophils (%) (Auto) , Basophils (%) (Auto) , Differential Total Cells Counted 100, Neutrophils % ( Manual) 87H, Lymphocytes % (Manual) 5L, Monocytes % (Manual) 6, Eosinophils % ( Manual) 1, Basophils % (Manual) 1, Band Neutrophils 0, Platelet Estimate Adequate, Platelet Morphology Normal, Hypochromasia 2+, Anisocytosis 1+, Sodium Level 137, Potassium Level 4.0, Chloride Level 101, Carbon Dioxide Level 28, Anion Gap 8, Blood Urea Nitrogen 71H, Creatinine 7.6H, Estimat Glomerular Filtration Rate , Glucose Level 484#H, Lactic Acid Level 1.20, Uric Acid 7.8H, Calcium Level 7.8L, Phosphorus Level 4.5, Magnesium Level 2.2, Total Bilirubin 0.5, Gamma Glutamyl Transpeptidase 25, Aspartate Amino Transf (AST/SGOT) 20, Alanine Aminotransferase (ALT/SGPT) 8L, Alkaline Phosphatase 105, Total Creatine Kinase 22L, C-Reactive Protein, Quantitative 46.7H, Pro-B-Type Natriuretic Peptide > 70917L, Total Protein 6.6, Albumin 1.7L, Globulin 4.9, Albumin/Globulin Ratio 0.3L, Cortisol AM Sample 12.6 03/24/19 04:00: Troponin I 0.027 Height (Feet): 5 Height (Inches): 5.00 Weight (Pounds): 129 General Appearance: lethargic Neck: normal alignment Cardiovascular: normal rate Respiratory/Chest: decreased breath sounds Abdomen: normal bowel sounds Pelvis: normal external exam Edema: 1+ Arm (L), 1+ Arm (R), 1+ Leg (L), 1+ Leg (R), 1+ Pedal (L), 1+ Pedal ( R), 1+ Generalized Objective Current Medications Medications (Trade) Dose Ordered Sig/Stephany Route PRN Reason Start Time Stop Time Status Last Admin Dose Admin Acetaminophen (Tylenol) 650 mg Q6H PRN ORAL Mild Pain/Temp > 100.5 03/09/19 07:01 04/07/19 07:00 03/10/19 03:10 Albuterol/ Ipratropium (Albuterol/ Ipratropium) 3 ml Q4H PRN HHN Shortness of Breath 03/20/19 15:15 03/25/19 15:14 Albuterol/ Ipratropium (Albuterol/ Ipratropium) 3 ml Q6HRT HHN 03/20/19 19:00 03/25/19 18:59 03/24/19 07:13 Apixaban (Eliquis) 2.5 mg BID ORAL 03/21/19 09:00 04/20/19 08:59 Aspirin (ASA) 81 mg DAILY NG 03/16/19 09:00 04/07/19 08:59 03/16/19 08:19 Carvedilol (Coreg) 3.125 mg EVERY 12 HOURS NG 03/15/19 21:00 04/09/19 20:59 03/16/19 08:19 Cefepime HCl 500 mg/Dextrose 55 ml @ 110 mls/hr Q24H IV 03/19/19 21:00 03/26/19 20:59 03/23/19 21:03 Dextrose (Dextrose 50%) 25 ml Q30M PRN IV Hypoglycemia 03/09/19 07:00 04/07/19 06:59 Dextrose (Dextrose 50%) 50 ml Q30M PRN IV Hypoglycemia 03/09/19 07:00 04/07/19 06:59 Dextrose/Sodium Chloride 1,000 ml @ 50 mls/hr Q20H IV 03/23/19 11:15 04/22/19 11:14 03/24/19 09:56 Docusate Sodium (Colace) 100 mg THREE TIMES A DAY ORAL 03/21/19 13:00 04/20/19 12:59 Epoetin Best (Epoetin Best(ESRD on dialysis)) 2,000 unit -SUN SUBQ 03/24/19 21:00 04/23/19 20:59 Epoetin Best (Epoetin Best(ESRD on dialysis)) 3,000 unit SUN-SUN-SUN SUBQ 03/24/19 21:00 04/23/19 20:59 Finasteride (Proscar) 5 mg DAILY ORAL 03/16/19 09:00 04/07/19 08:59 03/16/19 08:11 Fluticasone Propionate (Flonase) 2 spray DAILY NASAL 03/09/19 09:00 04/07/19 08:59 03/24/19 09:57 Guaifenesin/ Codeine Phosphate (Robitussin with codeine) 5 ml Q4H PRN ORAL For Cough 03/09/19 07:00 04/07/19 06:59 03/10/19 03:09 Hydralazine HCl (Apresoline) 25 mg Q4H PRN NG bp over 160 syst 03/15/19 19:03 04/07/19 07:02 Isosorbide Dinitrate (Isordil) 10 mg Q8HR ORAL 03/21/19 14:00 04/20/19 13:59 Nitroglycerin (Ntg) 1 patch Q24H TDERMAL 03/09/19 14:30 04/08/19 14:29 03/23/19 14:49 Ondansetron HCl (Zofran) 4 mg Q4H PRN IVP Nausea & Vomiting 03/09/19 07:03 04/08/19 07:02 03/10/19 03:09 Pantoprazole (Protonix) 40 mg EVERY 12 HOURS ORAL 03/21/19 21:00 04/20/19 20:59 Risperidone (RisperDAL) 1 mg BEDTIME NG 03/15/19 21:00 04/11/19 20:59 03/15/19 21:04 Sevelamer Carbonate (Renvela) 1,600 mg THREE TIMES A DAY NG 03/15/19 18:00 04/14/19 17:59 03/16/19 17:26 Tamsulosin HCl (Flomax) 0.4 mg BEDTIME ORAL 03/09/19 21:00 04/07/19 20:59 03/15/19 21:04 Shawn Saldana MD Mar 24, 2019 19:05
--- NOTE | 2019-03-24 19:45 | NUR ---
REPORT GIVEN TO LESTER SIERRA
[2019-03-24 20:00] VITALS: BP 105/45
--- NOTE | 2019-03-24 20:45 | General Progress Note ---
Assessment/Plan Assessment/Plan: respiratory failure aspiration risk NSTEMI renal failure diabeters persistent hypoglycemia ho pneumonia ho elevated lactic acid htn hld thrombocytopenia bipap consider changing to hi jakub defer to pulmonary aggressive pulmonaryhygiene, followed by Dr Adryan nichole noted , pos aspirate heme eval apprecaiated aspiration precutions\pulmonary hygiene echo noted, decreaed EF endo eval appreciated dialysis dependent abx per ID, monitor labs dw Dr Burk, on eliquis due to previous stroke paf dvt and ulcer prophylaxis dw family they dont want aggressive measure want him to be comfortable DNR DNI, they dont want tube feeds no intubation palliative measures dw daughter again reaffirmed comfort measures they are aware that patient condition is deteroirating and done wna feeding or intubation, dw casemanager to dw possible hospice care with family Subjective Allergies: Coded Allergies: No Known Allergies (Unverified , 05/25/13) Subjective on bipap, opens eyes, family doesnt want ng feeding want to purse comfort measures labs noted leukocytosis Objective Last 24 Hour Vital Signs Date Time Temp Pulse Resp B/P (MAP) Pulse Ox O2 Delivery O2 Flow Rate FiO2 03/24/19 19:25 67 22 100 Facial 80 64 22 100 Bi-Pap 80 03/24/19 19:25 100 Bi-Pap 80 03/24/19 17:25 68 23 100 Full Face 80 03/24/19 16:00 68 03/24/19 16:00 68 21 100 Full Face 80 03/24/19 16:00 96.1 69 24 110/50 (70) 100 03/24/19 16:00 Bi-pap 03/24/19 16:00 80 03/24/19 14:30 84/42 03/24/19 14:00 110/50 03/24/19 13:30 69 30 100 Full Face 80 03/24/19 12:18 80 03/24/19 12:00 67 03/24/19 12:00 96.8 67 25 95/44 (61) 100 03/24/19 12:00 Bi-pap 03/24/19 11:28 68 33 100 Full Face 80 03/24/19 08:45 68 26 100 Full Face 80 03/24/19 08:22 69 96/41 03/24/19 08:00 83 03/24/19 08:00 80 03/24/19 08:00 Bi-pap 03/24/19 08:00 96.4 69 32 96/41 (59) 99 03/24/19 07:14 67 27 100 Bi-Pap 80 03/24/19 07:13 100 Bi-Pap 80 03/24/19 07:03 67 27 100 Full Face 80 03/24/19 06:00 98/50 03/24/19 05:07 68 30 97 Full Face 80 03/24/19 04:00 97.6 70 32 98/50 (66) 9 03/24/19 04:00 69 03/24/19 04:00 80 03/24/19 04:00 Bi-pap 03/24/19 03:20 71 16 99 Full Face 80 03/24/19 01:30 71 36 98 Facial 80 74 34 99 Bi-Pap 80 03/24/19 00:00 73 03/24/19 00:00 Bi-pap 03/24/19 00:00 80 03/24/19 00:00 97.8 74 34 112/57 (75) 9 03/23/19 23:30 74 31 95 Full Face 80 03/23/19 21:07 77 33 93 Facial 80 03/23/19 21:04 113/70 Intake and Output 03/23/19 03/24/19 19:00 07:00 Intake Total 874.96412 ml 660 ml Balance 874.47481 ml 660 ml IV Total 874.40503 ml 660 ml Laboratory Tests 03/24/19 03:40: White Blood Count 16.5H, Red Blood Count 2.86L, Hemoglobin 9.0L, Hematocrit 28.3L, Mean Corpuscular Volume 99, Mean Corpuscular Hemoglobin 31.5H, Mean Corpuscular Hemoglobin Concent 31.8L, Red Cell Distribution Width 15.2H, Platelet Count 216, Mean Platelet Volume 7.1, Neutrophils (%) (Auto) , Lymphocytes (%) (Auto) , Monocytes (%) (Auto) , Eosinophils (%) (Auto) , Basophils (%) (Auto) , Differential Total Cells Counted 100, Neutrophils % ( Manual) 87H, Lymphocytes % (Manual) 5L, Monocytes % (Manual) 6, Eosinophils % ( Manual) 1, Basophils % (Manual) 1, Band Neutrophils 0, Platelet Estimate Adequate, Platelet Morphology Normal, Hypochromasia 2+, Anisocytosis 1+, Sodium Level 137, Potassium Level 4.0, Chloride Level 101, Carbon Dioxide Level 28, Anion Gap 8, Blood Urea Nitrogen 71H, Creatinine 7.6H, Estimat Glomerular Filtration Rate , Glucose Level 484#H, Lactic Acid Level 1.20, Uric Acid 7.8H, Calcium Level 7.8L, Phosphorus Level 4.5, Magnesium Level 2.2, Total Bilirubin 0.5, Gamma Glutamyl Transpeptidase 25, Aspartate Amino Transf (AST/SGOT) 20, Alanine Aminotransferase (ALT/SGPT) 8L, Alkaline Phosphatase 105, Total Creatine Kinase 22L, C-Reactive Protein, Quantitative 46.7H, Pro-B-Type Natriuretic Peptide > 71130Q, Total Protein 6.6, Albumin 1.7L, Globulin 4.9, Albumin/Globulin Ratio 0.3L, Cortisol AM Sample 12.6 03/24/19 04:00: Troponin I 0.027 Height (Feet): 5 Height (Inches): 5.00 Weight (Pounds): 129 Neck: supple Cardiovascular: normal rate Respiratory/Chest: decreased breath sounds Abdomen: soft Viktor García MD Mar 24, 2019 20:44
[2019-03-24] MEDS ORDERED: Epoetin Alfa-EPBX(ESRD on dialysis)3000 units/ml vial SUBQ SCH (21:00)
[2019-03-24] MEDS ORDERED: Epoetin Alfa-EPBX(ESRD on dialysis)2000 units/ml vial SUBQ SCH (21:00)
[2019-03-24] MEDS: Tamsulosin 0.4mg cap ORAL SCH (21:00)
--- NOTE | 2019-03-24 21:46 | General Progress Note ---
Assessment/Plan Assessment/Plan: Assessment - Failed swallow, aspiration risk - resp failure - still too high a risk for EGD - NSTEMI - thrombocytopenia - PNA - CAD - ESRD, HD - OBS - Terminal prognosis Recommendations - Pulmonary f/u - follow resp parameters closely - no plans for PEG - Family discussion re plan of care - consider comfort measures / terminal care Subjective Allergies: Coded Allergies: No Known Allergies (Unverified , 05/25/13) Subjective Above noted on BIPAP non communicative off feeds doing poorly DNR status Objective Last 24 Hour Vital Signs Date Time Temp Pulse Resp B/P (MAP) Pulse Ox O2 Delivery O2 Flow Rate FiO2 03/24/19 21:00 67 110/50 03/24/19 19:25 67 22 100 Facial 80 64 22 100 Bi-Pap 80 03/24/19 19:25 100 Bi-Pap 80 03/24/19 17:25 68 23 100 Full Face 80 03/24/19 16:00 68 03/24/19 16:00 68 21 100 Full Face 80 03/24/19 16:00 96.1 69 24 110/50 (70) 100 03/24/19 16:00 Bi-pap 03/24/19 16:00 80 03/24/19 14:30 84/42 03/24/19 14:00 110/50 03/24/19 13:30 69 30 100 Full Face 80 03/24/19 12:18 80 03/24/19 12:00 67 03/24/19 12:00 96.8 67 25 95/44 (61) 100 03/24/19 12:00 Bi-pap 03/24/19 11:28 68 33 100 Full Face 80 03/24/19 08:45 68 26 100 Full Face 80 03/24/19 08:22 69 96/41 03/24/19 08:00 83 03/24/19 08:00 80 03/24/19 08:00 Bi-pap 03/24/19 08:00 96.4 69 32 96/41 (59) 99 03/24/19 07:14 67 27 100 Bi-Pap 80 03/24/19 07:13 100 Bi-Pap 80 03/24/19 07:03 67 27 100 Full Face 80 03/24/19 06:00 98/50 03/24/19 05:07 68 30 97 Full Face 80 03/24/19 04:00 97.6 70 32 98/50 (66) 9 03/24/19 04:00 69 03/24/19 04:00 80 03/24/19 04:00 Bi-pap 03/24/19 03:20 71 16 99 Full Face 80 03/24/19 01:30 71 36 98 Facial 80 74 34 99 Bi-Pap 80 03/24/19 00:00 73 03/24/19 00:00 Bi-pap 03/24/19 00:00 80 03/24/19 00:00 97.8 74 34 112/57 (75) 9 03/23/19 23:30 74 31 95 Full Face 80 Intake and Output 03/23/19 03/24/19 19:00 07:00 Intake Total 874.22690 ml 660 ml Balance 874.78124 ml 660 ml IV Total 874.17022 ml 660 ml Laboratory Tests 03/24/19 03:40: White Blood Count 16.5H, Red Blood Count 2.86L, Hemoglobin 9.0L, Hematocrit 28.3L, Mean Corpuscular Volume 99, Mean Corpuscular Hemoglobin 31.5H, Mean Corpuscular Hemoglobin Concent 31.8L, Red Cell Distribution Width 15.2H, Platelet Count 216, Mean Platelet Volume 7.1, Neutrophils (%) (Auto) , Lymphocytes (%) (Auto) , Monocytes (%) (Auto) , Eosinophils (%) (Auto) , Basophils (%) (Auto) , Differential Total Cells Counted 100, Neutrophils % ( Manual) 87H, Lymphocytes % (Manual) 5L, Monocytes % (Manual) 6, Eosinophils % ( Manual) 1, Basophils % (Manual) 1, Band Neutrophils 0, Platelet Estimate Adequate, Platelet Morphology Normal, Hypochromasia 2+, Anisocytosis 1+, Sodium Level 137, Potassium Level 4.0, Chloride Level 101, Carbon Dioxide Level 28, Anion Gap 8, Blood Urea Nitrogen 71H, Creatinine 7.6H, Estimat Glomerular Filtration Rate , Glucose Level 484#H, Lactic Acid Level 1.20, Uric Acid 7.8H, Calcium Level 7.8L, Phosphorus Level 4.5, Magnesium Level 2.2, Total Bilirubin 0.5, Gamma Glutamyl Transpeptidase 25, Aspartate Amino Transf (AST/SGOT) 20, Alanine Aminotransferase (ALT/SGPT) 8L, Alkaline Phosphatase 105, Total Creatine Kinase 22L, C-Reactive Protein, Quantitative 46.7H, Pro-B-Type Natriuretic Peptide > 78017Q, Total Protein 6.6, Albumin 1.7L, Globulin 4.9, Albumin/Globulin Ratio 0.3L, Cortisol AM Sample 12.6 03/24/19 04:00: Troponin I 0.027 Height (Feet): 5 Height (Inches): 5.00 Weight (Pounds): 129 Objective Elderly man opens eyes to exam NCAT, (+) BIPAP supple Coarse carmencita RR Abd soft ND Mann Aguilar MD Mar 24, 2019 21:46
[2019-03-24] MEDS: Cefepime HCl 500 MG in D5W 55 ML IV SCH (22:17)
[2019-03-25] VITALS: BP 105/46
[2019-03-25] MEDS: Albuterol/Ipratropium 3ml neb HHN SCH ×2 (01:29→08:17)
[2019-03-25] MEDS: D5 1/2NS 1,000 ML IV SCH (03:41)
[2019-03-25 04:00] VITALS: BP 116/69
--- NOTE | 2019-03-25 07:09 | General Progress Note ---
Assessment/Plan Problem List: (1) Hypoglycemia ICD Codes: E16.2 - Hypoglycemia, unspecified SNOMED: 882480353 (2) Hemodialysis disequilibrium syndrome ICD Codes: E87.8 - Other disorders of electrolyte and fluid balance, not elsewhere classified SNOMED: 46488091 (3) NSTEMI (non-ST elevated myocardial infarction) ICD Codes: I21.4 - Non-ST elevation (NSTEMI) myocardial infarction SNOMED: 98048720 (4) ESRD (end stage renal disease) on dialysis ICD Codes: N18.6 - End stage renal disease; Z99.2 - Dependence on renal dialysis SNOMED: 006234039 (5) Diabetes ICD Codes: E11.9 - Type 2 diabetes mellitus without complications SNOMED: 47998826 (6) vascular dementia Assessment/Plan: glucose values are stable w/o hypoglycemia no need for diabetic medications continue to monitor glucose hypoglycemia protocol in order Subjective ROS Limited/Unobtainable: Yes Allergies: Coded Allergies: No Known Allergies (Unverified , 05/25/13) Subjective events noted glucose values are stable Item Value Date Time Bedside Blood Glucose 136 mg/dl H 03/25/19 0600 Bedside Blood Glucose 144 mg/dl H 03/25/19 0000 Bedside Blood Glucose 130 mg/dl H 03/24/19 1800 Bedside Blood Glucose 130 mg/dl H 03/24/19 1130 Bedside Blood Glucose 135 mg/dl H 03/24/19 0800 Bedside Blood Glucose 135 mg/dl H 03/24/19 0600 Bedside Blood Glucose 144 mg/dl H 03/24/19 0000 Objective Last 24 Hour Vital Signs Date Time Temp Pulse Resp B/P (MAP) Pulse Ox O2 Delivery O2 Flow Rate FiO2 03/25/19 06:00 80 03/25/19 05:26 68 22 99 Facial 80 03/25/19 04:00 67 03/25/19 04:00 Bi-pap 03/25/19 04:00 97.4 64 25 116/69 (85) 100 03/25/19 03:25 67 21 100 Facial 80 03/25/19 01:30 64 23 98 Facial 80 66 21 100 Bi-Pap 80 03/25/19 00:00 Bi-pap 03/25/19 00:00 65 03/25/19 00:00 80 03/25/19 00:00 97.4 68 22 105/46 (65) 99 03/24/19 23:03 69 27 99 Facial 80 03/24/19 21:07 68 21 100 Facial 80 03/24/19 21:00 67 110/50 03/24/19 20:00 67 03/24/19 20:00 97.0 69 25 105/45 (65) 100 03/24/19 20:00 Bi-pap 03/24/19 19:25 67 22 100 Facial 80 64 22 100 Bi-Pap 80 03/24/19 19:25 100 Bi-Pap 80 03/24/19 17:25 68 23 100 Full Face 80 03/24/19 16:00 68 03/24/19 16:00 68 21 100 Full Face 80 03/24/19 16:00 96.1 69 24 110/50 (70) 100 03/24/19 16:00 Bi-pap 03/24/19 16:00 80 03/24/19 14:30 84/42 03/24/19 14:00 110/50 03/24/19 13:30 69 30 100 Full Face 80 03/24/19 12:18 80 03/24/19 12:00 67 03/24/19 12:00 96.8 67 25 95/44 (61) 100 03/24/19 12:00 Bi-pap 03/24/19 11:28 68 33 100 Full Face 80 03/24/19 08:45 68 26 100 Full Face 80 03/24/19 08:22 69 96/41 03/24/19 08:00 83 03/24/19 08:00 80 03/24/19 08:00 Bi-pap 03/24/19 08:00 96.4 69 32 96/41 (59) 99 03/24/19 07:14 67 27 100 Bi-Pap 80 03/24/19 07:13 100 Bi-Pap 80 Intake and Output 03/24/19 03/25/19 19:00 07:00 Intake Total 50 ml 605 ml Balance 50 ml 605 ml IV Total 50 ml 605 ml Hemodialysis 0 ml Height (Feet): 5 Height (Inches): 5.00 Weight (Pounds): 130 General Appearance: lethargic Neck: normal alignment Cardiovascular: normal rate Respiratory/Chest: decreased breath sounds Abdomen: normal bowel sounds Objective Current Medications Medications (Trade) Dose Ordered Sig/Stephnay Route PRN Reason Start Time Stop Time Status Last Admin Dose Admin Acetaminophen (Tylenol) 650 mg Q6H PRN ORAL Mild Pain/Temp > 100.5 03/09/19 07:01 04/07/19 07:00 03/10/19 03:10 Albuterol/ Ipratropium (Albuterol/ Ipratropium) 3 ml Q4H PRN HHN Shortness of Breath 03/20/19 15:15 03/25/19 15:14 Albuterol/ Ipratropium (Albuterol/ Ipratropium) 3 ml Q6HRT HHN 03/20/19 19:00 03/25/19 18:59 03/25/19 01:29 Apixaban (Eliquis) 2.5 mg BID ORAL 03/21/19 09:00 04/20/19 08:59 Aspirin (ASA) 81 mg DAILY NG 03/16/19 09:00 04/07/19 08:59 03/16/19 08:19 Carvedilol (Coreg) 3.125 mg EVERY 12 HOURS NG 03/15/19 21:00 04/09/19 20:59 03/16/19 08:19 Cefepime HCl 500 mg/Dextrose 55 ml @ 110 mls/hr Q24H IV 03/19/19 21:00 03/26/19 20:59 03/24/19 22:17 Dextrose (Dextrose 50%) 25 ml Q30M PRN IV Hypoglycemia 03/09/19 07:00 04/07/19 06:59 Dextrose (Dextrose 50%) 50 ml Q30M PRN IV Hypoglycemia 03/09/19 07:00 04/07/19 06:59 Dextrose/Sodium Chloride 1,000 ml @ 50 mls/hr Q20H IV 03/23/19 11:15 04/22/19 11:14 03/25/19 03:41 Docusate Sodium (Colace) 100 mg THREE TIMES A DAY ORAL 03/21/19 13:00 04/20/19 12:59 Epoetin Best (Epoetin Best(ESRD on dialysis)) 2,000 unit SUN-SUN-SUN SUBQ 03/24/19 21:00 04/23/19 20:59 03/24/19 21:37 Epoetin Best (Epoetin Best(ESRD on dialysis)) 3,000 unit SUN-SUN-SUN SUBQ 03/24/19 21:00 04/23/19 20:59 03/24/19 21:36 Finasteride (Proscar) 5 mg DAILY ORAL 03/16/19 09:00 04/07/19 08:59 03/16/19 08:11 Fluticasone Propionate (Flonase) 2 spray DAILY NASAL 03/09/19 09:00 04/07/19 08:59 03/24/19 09:57 Guaifenesin/ Codeine Phosphate (Robitussin with codeine) 5 ml Q4H PRN ORAL For Cough 03/09/19 07:00 04/07/19 06:59 03/10/19 03:09 Hydralazine HCl (Apresoline) 25 mg Q4H PRN NG bp over 160 syst 03/15/19 19:03 04/07/19 07:02 Isosorbide Dinitrate (Isordil) 10 mg Q8HR ORAL 03/21/19 14:00 04/20/19 13:59 Nitroglycerin (Ntg) 1 patch Q24H TDERMAL 03/09/19 14:30 04/08/19 14:29 03/23/19 14:49 Ondansetron HCl (Zofran) 4 mg Q4H PRN IVP Nausea & Vomiting 03/09/19 07:03 04/08/19 07:02 03/10/19 03:09 Pantoprazole (Protonix) 40 mg EVERY 12 HOURS ORAL 03/21/19 21:00 04/20/19 20:59 Risperidone (RisperDAL) 1 mg BEDTIME NG 03/15/19 21:00 04/11/19 20:59 03/15/19 21:04 Sevelamer Carbonate (Renvela) 1,600 mg THREE TIMES A DAY NG 03/15/19 18:00 04/14/19 17:59 03/16/19 17:26 Tamsulosin HCl (Flomax) 0.4 mg BEDTIME ORAL 03/09/19 21:00 04/07/19 20:59 03/15/19 21:04 Shawn Saldana MD Mar 25, 2019 07:09
--- NOTE | 2019-03-25 07:15 | Progress Note ---
DATE: 03/24/2019 SUBJECTIVE: The patient . The patient is having waxing and waning consciousness. The patient is confused, disoriented, not able to follow direction. MENTAL STATUS EXAMINATION: The patient is confused, disoriented. Mood is anxious. Affect is flat. Thought process, there is a paucity of thought content. Thought content, no suicidal or homicidal ideation. ASSESSMENT: 1. Acute encephalopathy. 2. Dementia with behavior disturbance. PLAN: 1. We will continue on current psychotropic medication. 2. We will continue provide the patient with reality orientation and supportive therapy. Zi Carrera M.D. DR: KASANDRA JOB#: [id number] CC: [facility]
--- NOTE | 2019-03-25 07:30 | NUR ---
NURSE NOTES: Patient received lying in bed, awake, eyes track and follows. No signs of pain noted. On BIPAP with settings of 15/8, Fio2 of 80%, saturating at 98-100%, no signs of distress noted, respirations even and unlabored. Patient remains NPO. Left Upper Arm AV shunt with positive bruit and thrill. Right hand IV running D5 1/2 NS at 50 ml/hr. Bilateral soft wrists in place, pulse palpable, skin is intact. Patient is anuric. Sinus Rhythm noted on the monitor. Will continue to monitor the patient.
[2019-03-25 08:00] VITALS: BP 123/54
--- NOTE | 2019-03-25 08:30 | Geriatric Medicine Prog Note ---
SUBJECTIVE: Now on comfort care ,he is refusing all types of _ feedings. OBJECTIVE: VITAL SIGNS: Stable. Blood pressure 100/42, pulse 70, respiratory rate 20, and temperature 98. RESPIRATORY: Clear. CARDIOVASCULAR: Regular. LABORATORY DATA: Glucose 147. ASSSSMENT:Diabetes Mellitus controlled PLAN:Accuchsam MOURA ac and Tay Bloom M.D. DR: ASHLEY JOB#: [id number] CC: [facility]
--- NOTE | 2019-03-25 08:31 | Geriatric Medicine Prog Note ---
DATE: 03/23/2019 RNOTE: POOR AUDIO SUBJECTIVE: The patient is tolerating D10W 30 mL per hour and is on comfort measures. OBJECTIVE: VITAL SIGNS: The patient's BP 120/70, pulse 80_, respiratory rate 18 T98.0 LABORATORY DATA: Glucose 153. ASSESSMENT AND PLAN: 1. Diabetes mellitus, stable. 2. Malnutrition. PLAANS:Continue comfort measures. D10W 30 mL per hour. Tay Bloom M.D. DR: ASHLEY JOB#: [id number] CC: [facility]
--- NOTE | 2019-03-25 08:46 | Pulmonology Progress Note ---
Assessment/Plan Problems: (1) NSTEMI (non-ST elevated myocardial infarction) (2) ESRD (end stage renal disease) on dialysis (3) Cardiomyopathy (4) HTN (hypertension) (5) HLD (hyperlipidemia) (6) CVA (cerebral vascular accident) Assessment/Plan ASSESSMENT: The patient is an 83-year-old male with a history of prior CVA, end -stage renal disease, on dialysis, hypertension, hyperlipidemia, CAD, CVA, and BPH presenting with dizziness and ibj-CG-uzdjztnym NM. He is fairly stable from a respiratory standpoint. PROBLEM LIST: 1. Non ST-elevation myocardial infarction. 2. Recent pneumonia. 3. Dizziness. 4. End-stage renal disease, on dialysis. 5. CAD. 6. Hypertension. 7. Hyperlipidemia. 8. Anemia. 9. Diabetes. TREATMENT PLAN: NO escalation, no ICU transfer Optimize pulmonary hygiene/mobilize as tolerated. Continue BiPAP for now, attempt to wean off Titrate O2 HHN's Abx: Cefepime per ID Follow up Cardiology recommendations, medical management of non-STEMI. DVT Px: Eliquis 2.5 BID Monitor volumes and renal function, dialysis per Renal/UF as tolerated DNAR/DNI Subjective Allergies: Coded Allergies: No Known Allergies (Unverified , 05/25/13) Subjective On BiPAP lethargic no cough + SOB Objective Last 24 Hour Vital Signs Date Time Temp Pulse Resp B/P (MAP) Pulse Ox O2 Delivery O2 Flow Rate FiO2 03/25/19 06:00 80 03/25/19 05:26 68 22 99 Facial 80 03/25/19 04:00 67 03/25/19 04:00 Bi-pap 03/25/19 04:00 97.4 64 25 116/69 (85) 100 03/25/19 03:25 67 21 100 Facial 80 03/25/19 01:30 64 23 98 Facial 80 66 21 100 Bi-Pap 80 03/25/19 00:00 Bi-pap 03/25/19 00:00 65 03/25/19 00:00 80 03/25/19 00:00 97.4 68 22 105/46 (65) 99 03/24/19 23:03 69 27 99 Facial 80 03/24/19 21:07 68 21 100 Facial 80 03/24/19 21:00 67 110/50 03/24/19 20:00 67 03/24/19 20:00 97.0 69 25 105/45 (65) 100 03/24/19 20:00 Bi-pap 03/24/19 19:25 67 22 100 Facial 80 64 22 100 Bi-Pap 80 03/24/19 19:25 100 Bi-Pap 80 03/24/19 17:25 68 23 100 Full Face 80 03/24/19 16:00 68 03/24/19 16:00 68 21 100 Full Face 80 03/24/19 16:00 96.1 69 24 110/50 (70) 100 03/24/19 16:00 Bi-pap 03/24/19 16:00 80 03/24/19 14:30 84/42 03/24/19 14:00 110/50 03/24/19 13:30 69 30 100 Full Face 80 03/24/19 12:18 80 03/24/19 12:00 67 03/24/19 12:00 96.8 67 25 95/44 (61) 100 03/24/19 12:00 Bi-pap 03/24/19 11:28 68 33 100 Full Face 80 Intake and Output 03/24/19 03/25/19 19:00 07:00 Intake Total 50 ml 605 ml Balance 50 ml 605 ml IV Total 50 ml 605 ml Hemodialysis 0 ml General Appearance: cachetic HEENT: other - BiPAP Respiratory/Chest: crackles/rales, rhonchi Cardiovascular: normal peripheral pulses, normal rate, regular rhythm Abdomen: normal bowel sounds, soft, non tender, no organomegaly, non distended , no mass Extremities: no cyanosis, no clubbing, no edema Current Medications Medications (Trade) Dose Ordered Sig/Stephany Route PRN Reason Start Time Stop Time Status Last Admin Dose Admin Acetaminophen (Tylenol) 650 mg Q6H PRN ORAL Mild Pain/Temp > 100.5 03/09/19 07:01 04/07/19 07:00 03/10/19 03:10 Albuterol/ Ipratropium (Albuterol/ Ipratropium) 3 ml Q4H PRN HHN Shortness of Breath 03/20/19 15:15 03/25/19 15:14 Albuterol/ Ipratropium (Albuterol/ Ipratropium) 3 ml Q6HRT HHN 03/20/19 19:00 03/25/19 18:59 03/25/19 08:17 Apixaban (Eliquis) 2.5 mg BID ORAL 03/21/19 09:00 04/20/19 08:59 Aspirin (ASA) 81 mg DAILY NG 03/16/19 09:00 04/07/19 08:59 03/16/19 08:19 Carvedilol (Coreg) 3.125 mg EVERY 12 HOURS NG 03/15/19 21:00 04/09/19 20:59 03/16/19 08:19 Cefepime HCl 500 mg/Dextrose 55 ml @ 110 mls/hr Q24H IV 03/19/19 21:00 03/26/19 20:59 03/24/19 22:17 Dextrose (Dextrose 50%) 25 ml Q30M PRN IV Hypoglycemia 03/09/19 07:00 04/07/19 06:59 Dextrose (Dextrose 50%) 50 ml Q30M PRN IV Hypoglycemia 03/09/19 07:00 04/07/19 06:59 Dextrose/Sodium Chloride 1,000 ml @ 50 mls/hr Q20H IV 03/23/19 11:15 04/22/19 11:14 03/25/19 03:41 Docusate Sodium (Colace) 100 mg THREE TIMES A DAY ORAL 03/21/19 13:00 04/20/19 12:59 Epoetin Best (Epoetin Best(ESRD on dialysis)) 2,000 unit SUBQ 03/24/19 21:00 04/23/19 20:59 03/24/19 21:37 Epoetin Best (Epoetin Best(ESRD on dialysis)) 3,000 unit SUN- SUBQ 03/24/19 21:00 04/23/19 20:59 03/24/19 21:36 Finasteride (Proscar) 5 mg DAILY ORAL 03/16/19 09:00 04/07/19 08:59 03/16/19 08:11 Fluticasone Propionate (Flonase) 2 spray DAILY NASAL 03/09/19 09:00 04/07/19 08:59 03/24/19 09:57 Guaifenesin/ Codeine Phosphate (Robitussin with codeine) 5 ml Q4H PRN ORAL For Cough 03/09/19 07:00 04/07/19 06:59 03/10/19 03:09 Hydralazine HCl (Apresoline) 25 mg Q4H PRN NG bp over 160 syst 03/15/19 19:03 04/07/19 07:02 Isosorbide Dinitrate (Isordil) 10 mg Q8HR ORAL 03/21/19 14:00 04/20/19 13:59 Nitroglycerin (Ntg) 1 patch Q24H TDERMAL 03/09/19 14:30 04/08/19 14:29 03/23/19 14:49 Ondansetron HCl (Zofran) 4 mg Q4H PRN IVP Nausea & Vomiting 03/09/19 07:03 04/08/19 07:02 03/10/19 03:09 Pantoprazole (Protonix) 40 mg EVERY 12 HOURS ORAL 03/21/19 21:00 04/20/19 20:59 Risperidone (RisperDAL) 1 mg BEDTIME NG 03/15/19 21:00 04/11/19 20:59 03/15/19 21:04 Sevelamer Carbonate (Renvela) 1,600 mg THREE TIMES A DAY NG 03/15/19 18:00 04/14/19 17:59 03/16/19 17:26 Tamsulosin HCl (Flomax) 0.4 mg BEDTIME ORAL 03/09/19 21:00 04/07/19 20:59 03/15/19 21:04 Thaddeus Cornelius MD Mar 25, 2019 08:46
[2019-03-25] MEDS: Aspirin Baby 81mg NG SCH (09:00)
[2019-03-25] MEDS: Renvela 800mg Pkt NG SCH (09:00)
[2019-03-25] MEDS: Eliquis 2.5mg tablet ORAL SCH (09:00)
[2019-03-25] MEDS: Docusate 100mg cap ORAL SCH ×2 (09:00→13:00)
[2019-03-25] MEDS: Flonase Nasal Inhaler 16gm NASAL SCH (09:00)
--- NOTE | 2019-03-25 09:11 | NUR ---
NURSE NOTES: Peter Carcamo: Pt with no pulse and no breathing. auricular acupuncturist Carmen at bedside.
--- NOTE | 2019-03-25 09:40 | Diagnostic Imaging Report ---
Indication: Cough Technique: One view of the chest Comparison: 03/23/2019 Findings: Again demonstrated is extensive bilateral dense consolidation, appearing unchanged. The heart size remains borderline enlarged. No definite effusion Impression: Unchanged, over 2 days, findings as above. .
--- NOTE | 2019-03-25 10:04 | NUR ---
RADIOLOGY DEPT., CHEST X-RAY DONE.-P.DYE
--- NOTE | 2019-03-25 11:00 | NUR ---
NURSE NOTES: Patient's restraints discontinued, will try to assess the need for bilateral soft wrist restraints and if patient is removing devices. Patient currently weaned off of BiPAP, currently on venturi mask 14 lpm, FiO2- 55%, saturating at 92-93%. Will continue to monitor.
--- NOTE | 2019-03-25 11:11 | Cardiac Electrophysiology PN ---
Assessment/Plan Assessment/Plan 1. Troponin elevation due to renal failure. Troponin peak 3.5 down to 1.88. Confused in restraints. No CP or SOB. EKG no acute changes. EF 40 % On aspirin, Coreg 3.125 bid, Isordil and Lipitor. Treat medically 2. Cardiomyopathy with EF of 40%. BNP is more than 35,000. Echo on 02/02/2019 showed EF of 55% to 60%, repeat echo EF 40%. On Coreg, and HD. Lisinopril DCed 3. On Eliquis for CVA and PVD. No Fib or DVT or PE 4. End-stage renal disease, on hemodialysis. 5. Lactic acidosis. 6. Hyperlipidemia, on Lipitor. 7. Dysphagia. Family refused PEG or NG tube feeding. On iv fluid 8. Respiratory failure on BIPAP. 9. DNR and DNI DW RN Subjective Subjective On BIPAP and D5W iv fluid. Family refusing NGT or PEG. RN at bedside. Objective Last 24 Hour Vital Signs Date Time Temp Pulse Resp B/P (MAP) Pulse Ox O2 Delivery O2 Flow Rate FiO2 03/25/19 09:15 72 26 96 Facial 60 03/25/19 08:16 Bi-Pap 80 03/25/19 08:00 80 03/25/19 08:00 92.8 74 26 123/54 (77) 100 03/25/19 08:00 71 03/25/19 08:00 Bi-pap 03/25/19 07:29 71 25 99 Facial 80 75 25 100 Bi-Pap 80 03/25/19 06:00 80 03/25/19 05:26 68 22 99 Facial 80 03/25/19 04:00 67 03/25/19 04:00 Bi-pap 03/25/19 04:00 97.4 64 25 116/69 (85) 100 03/25/19 03:25 67 21 100 Facial 80 03/25/19 01:30 64 23 98 Facial 80 66 21 100 Bi-Pap 80 03/25/19 00:00 Bi-pap 03/25/19 00:00 65 03/25/19 00:00 80 03/25/19 00:00 97.4 68 22 105/46 (65) 99 03/24/19 23:03 69 27 99 Facial 80 03/24/19 21:07 68 21 100 Facial 80 03/24/19 21:00 67 110/50 03/24/19 20:00 67 03/24/19 20:00 97.0 69 25 105/45 (65) 100 03/24/19 20:00 Bi-pap 03/24/19 19:25 67 22 100 Facial 80 64 22 100 Bi-Pap 80 03/24/19 19:25 100 Bi-Pap 80 03/24/19 17:25 68 23 100 Full Face 80 03/24/19 16:00 68 03/24/19 16:00 68 21 100 Full Face 80 03/24/19 16:00 96.1 69 24 110/50 (70) 100 03/24/19 16:00 Bi-pap 03/24/19 16:00 80 03/24/19 14:30 84/42 03/24/19 14:00 110/50 03/24/19 13:30 69 30 100 Full Face 80 03/24/19 12:18 80 03/24/19 12:00 67 03/24/19 12:00 96.8 67 25 95/44 (61) 100 03/24/19 12:00 Bi-pap 03/24/19 11:28 68 33 100 Full Face 80 Intake and Output 03/24/19 03/25/19 19:00 07:00 Intake Total 50 ml 605 ml Balance 50 ml 605 ml IV Total 50 ml 605 ml Hemodialysis 0 ml Objective HEAD AND NECK: No JVD. BIPAP on LUNGS: Clear. CARDIOVASCULAR: Regular S1 and S2 with no gallop or murmur. ABDOMEN: Soft. EXTREMITIES: No pitting edema. Dialysis access in the left arm. Dariel Corcoran MD Mar 25, 2019 11:11
[2019-03-25 12:00] VITALS: BP 108/46
--- NOTE | 2019-03-25 12:03 | Nephrology Progress Note ---
Assessment/Plan Problem List: (1) ESRD (end stage renal disease) on dialysis (2) Cardiomyopathy (3) NSTEMI (non-ST elevated myocardial infarction) Assessment: Troponin lowering (4) Acute respiratory failure with hypoxia and hypercapnia Assessment ESRD- HTN Anemia DM CAD- Cardiomyopathy s/p SEPSIS AL Plan leukocytosis improving ? Aspirated one time Vanco and Zosyn until ID re-eval recent 2D echo 40% EjFx Pulm Toilet and support HD last 03/24 Keep BP in check - Hold bp meds for now due to low BP Albumin bolus ASA Nitrate per consultants per orders ? need for PEG as NGt always pulled out ? discussed with Dr Cornelius and Estelita Subjective ROS Limited/Unobtainable: No Constitutional: Reports: malaise, weakness Objective Objective Last 24 Hour Vital Signs Date Time Temp Pulse Resp B/P (MAP) Pulse Ox O2 Delivery O2 Flow Rate FiO2 03/25/19 09:15 72 26 96 Facial 60 03/25/19 08:16 Bi-Pap 80 03/25/19 08:00 80 03/25/19 08:00 92.8 74 26 123/54 (77) 100 03/25/19 08:00 71 03/25/19 08:00 Bi-pap 03/25/19 07:29 71 25 99 Facial 80 75 25 100 Bi-Pap 80 03/25/19 06:00 80 03/25/19 05:26 68 22 99 Facial 80 03/25/19 04:00 67 03/25/19 04:00 Bi-pap 03/25/19 04:00 97.4 64 25 116/69 (85) 100 03/25/19 03:25 67 21 100 Facial 80 03/25/19 01:30 64 23 98 Facial 80 66 21 100 Bi-Pap 80 03/25/19 00:00 Bi-pap 03/25/19 00:00 65 03/25/19 00:00 80 03/25/19 00:00 97.4 68 22 105/46 (65) 99 03/24/19 23:03 69 27 99 Facial 80 03/24/19 21:07 68 21 100 Facial 80 03/24/19 21:00 67 110/50 03/24/19 20:00 67 03/24/19 20:00 97.0 69 25 105/45 (65) 100 03/24/19 20:00 Bi-pap 03/24/19 19:25 67 22 100 Facial 80 64 22 100 Bi-Pap 80 03/24/19 19:25 100 Bi-Pap 80 03/24/19 17:25 68 23 100 Full Face 80 03/24/19 16:00 68 03/24/19 16:00 68 21 100 Full Face 80 03/24/19 16:00 96.1 69 24 110/50 (70) 100 03/24/19 16:00 Bi-pap 03/24/19 16:00 80 03/24/19 14:30 84/42 03/24/19 14:00 110/50 03/24/19 13:30 69 30 100 Full Face 80 03/24/19 12:18 80 Intake and Output 03/24/19 03/25/19 19:00 07:00 Intake Total 50 ml 605 ml Balance 50 ml 605 ml IV Total 50 ml 605 ml Hemodialysis 0 ml Height (Feet): 5 Height (Inches): 5.00 Weight (Pounds): 130 General Appearance: mild distress EENT: other - BIPAP Cardiovascular: normal rate Respiratory/Chest: decreased breath sounds Abdomen: distended Objective no change Mikey Brandt MD Mar 25, 2019 12:03
--- NOTE | 2019-03-25 12:19 | Infectious Diseases Prog Note ---
Assessment/Plan Assessment/Plan IMPRESSION: 1. Leukocytosis, 2. Lactic acidosis. 3.Doubt sepsis 4. Scg-DA-fizjkwwmc MT. 5. End-stage renal disease, on hemodialysis. 6. Diabetes mellitus, type 2. 7. Hypertension. 8. BPH. 9. Systolic CHF with ejection fraction of 40%. 10. Dysphagia 11. Hypoxemia 12. Pneumonia worsening 13. Anemia 14. Thrombocytopenia RECOMMENDATIONS: Continue Zosyn DNR, DNI on palliative care Subjective ROS Limited/Unobtainable: Yes Respiratory: Reports: other - adrianna off of BIPAP Neurologic: Reports: other - more alert, off of restraint Allergies: Coded Allergies: No Known Allergies (Unverified , 05/25/13) Objective Vital Signs Last 24 Hour Vital Signs Date Time Temp Pulse Resp B/P (MAP) Pulse Ox O2 Delivery O2 Flow Rate FiO2 03/25/19 09:15 72 26 96 Facial 60 03/25/19 08:16 Bi-Pap 80 03/25/19 08:00 80 03/25/19 08:00 92.8 74 26 123/54 (77) 100 03/25/19 08:00 71 03/25/19 08:00 Bi-pap 03/25/19 07:29 71 25 99 Facial 80 75 25 100 Bi-Pap 80 03/25/19 06:00 80 03/25/19 05:26 68 22 99 Facial 80 03/25/19 04:00 67 03/25/19 04:00 Bi-pap 03/25/19 04:00 97.4 64 25 116/69 (85) 100 03/25/19 03:25 67 21 100 Facial 80 03/25/19 01:30 64 23 98 Facial 80 66 21 100 Bi-Pap 80 03/25/19 00:00 Bi-pap 03/25/19 00:00 65 03/25/19 00:00 80 03/25/19 00:00 97.4 68 22 105/46 (65) 99 03/24/19 23:03 69 27 99 Facial 80 03/24/19 21:07 68 21 100 Facial 80 03/24/19 21:00 67 110/50 03/24/19 20:00 67 03/24/19 20:00 97.0 69 25 105/45 (65) 100 03/24/19 20:00 Bi-pap 1/27/20 19:25 67 22 100 Facial 80 64 22 100 Bi-Pap 80 03/24/19 19:25 100 Bi-Pap 80 03/24/19 17:25 68 23 100 Full Face 80 03/24/19 16:00 68 03/24/19 16:00 68 21 100 Full Face 80 03/24/19 16:00 96.1 69 24 110/50 (70) 100 03/24/19 16:00 Bi-pap 03/24/19 16:00 80 03/24/19 14:30 84/42 03/24/19 14:00 110/50 03/24/19 13:30 69 30 100 Full Face 80 03/24/19 12:18 80 Height (Feet): 5 Height (Inches): 5.00 Weight (Pounds): 130 Respiratory/Chest: rhonchi - bilaterally, other - Oxygen by mask Cardiovascular: normal rate Abdomen: soft, non tender Extremities: no edema Neurologic/Psychiatric: alert, responsive Musculoskeletal: atrophy Current Medications Medications (Trade) Dose Ordered Sig/Stephany Route PRN Reason Start Time Stop Time Status Last Admin Dose Admin Acetaminophen (Tylenol) 650 mg Q6H PRN ORAL Mild Pain/Temp > 100.5 03/09/19 07:01 04/07/19 07:00 03/10/19 03:10 Albuterol/ Ipratropium (Albuterol/ Ipratropium) 3 ml Q4H PRN HHN Shortness of Breath 03/20/19 15:15 03/25/19 15:14 Albuterol/ Ipratropium (Albuterol/ Ipratropium) 3 ml Q6HRT HHN 03/20/19 19:00 03/25/19 18:59 03/25/19 08:17 Apixaban (Eliquis) 2.5 mg BID ORAL 03/21/19 09:00 04/20/19 08:59 Aspirin (ASA) 81 mg DAILY NG 03/16/19 09:00 04/07/19 08:59 03/16/19 08:19 Carvedilol (Coreg) 3.125 mg EVERY 12 HOURS NG 03/15/19 21:00 04/09/19 20:59 03/16/19 08:19 Cefepime HCl 500 mg/Dextrose 55 ml @ 110 mls/hr Q24H IV 03/19/19 21:00 03/26/19 20:59 03/24/19 22:17 Dextrose (Dextrose 50%) 25 ml Q30M PRN IV Hypoglycemia 03/09/19 07:00 04/07/19 06:59 Dextrose (Dextrose 50%) 50 ml Q30M PRN IV Hypoglycemia 03/09/19 07:00 04/07/19 06:59 Dextrose/Sodium Chloride 1,000 ml @ 50 mls/hr Q20H IV 03/23/19 11:15 04/22/19 11:14 03/25/19 03:41 Docusate Sodium (Colace) 100 mg THREE TIMES A DAY ORAL 03/21/19 13:00 04/20/19 12:59 Epoetin Best (Epoetin Best(ESRD on dialysis)) 2,000 unit SUBQ 03/26/19 21:00 04/25/19 20:59 Epoetin Best (Epoetin Best(ESRD on dialysis)) 3,000 unit SUBQ 03/26/19 21:00 04/23/19 20:59 Finasteride (Proscar) 5 mg DAILY ORAL 03/16/19 09:00 04/07/19 08:59 03/16/19 08:11 Fluticasone Propionate (Flonase) 2 spray DAILY NASAL 03/09/19 09:00 04/07/19 08:59 03/24/19 09:57 Guaifenesin/ Codeine Phosphate (Robitussin with codeine) 5 ml Q4H PRN ORAL For Cough 03/09/19 07:00 04/07/19 06:59 03/10/19 03:09 Hydralazine HCl (Apresoline) 25 mg Q4H PRN NG bp over 160 syst 03/15/19 19:03 04/07/19 07:02 Isosorbide Dinitrate (Isordil) 10 mg Q8HR ORAL 03/21/19 14:00 04/20/19 13:59 Nitroglycerin (Ntg) 1 patch Q24H TDERMAL 03/09/19 14:30 04/08/19 14:29 03/23/19 14:49 Ondansetron HCl (Zofran) 4 mg Q4H PRN IVP Nausea & Vomiting 03/09/19 07:03 04/08/19 07:02 03/10/19 03:09 Pantoprazole (Protonix) 40 mg EVERY 12 HOURS ORAL 03/21/19 21:00 04/20/19 20:59 Risperidone (RisperDAL) 1 mg BEDTIME NG 03/15/19 21:00 04/11/19 20:59 03/15/19 21:04 Tamsulosin HCl (Flomax) 0.4 mg BEDTIME ORAL 03/09/19 21:00 04/07/19 20:59 03/15/19 21:04 Boyd Tee MD Mar 25, 2019 12:19
--- NOTE | 2019-03-25 12:30 | NUR ---
NURSE NOTES: Patient removed the venturi mask a couple of times and patient desaturated to 70s, placed back on venturi mask. Mitten placed on left hand, pulse palpable, skin remains intact.
[2019-03-25] MEDS: Nitroglycerin Patch 0.4mg TDERMAL SCH (14:16)
--- NOTE | 2019-03-25 14:33 | NUR ---
RD ASSESSMENT & RECOMMENDATIONS SEE CARE ACTIVITY FOR COMPLETE ASSESSMENT DAILY ESTIMATED NEEDS: Needs based on ESRD w/ HD, 63.6kg 25-35 kcals/kg 9219-3889 total kcals 1.2-1.8 g protein/kg 76-115 g total protein Fluid per MD, on HD mL/kg . total fluid mLs NUTRITION DIAGNOSIS: * Increased kcal and protein needs r/t renal dysfunction as evidenced by pt w/ ESRD on HD * Swallowing difficulty R/T dysphagia, respiratory status as evidenced by pt failed MBSS, now NPO, s/p RR, on BIPAP -> now on simple mask-> back to BIPAP, family refused PEG and NGT, palliative care per MD. CURRENT DIET:NPO ENTERAL NUTRITION RECOMMENDATIONS: IF PART OF POC AND ABLE TO OBTAIN GI ACCESS-> NEPRO @ 40ml/hr x 24 hrs to provide 960ml, 1728kcal, 78g prot, 698ml free water * W/ GI access, initiate Nepro @ 10ml/hr x 6 hrs * Advance 10ml q 4-6 hrs as tolerated to goal rate * HOB over 30 degrees/ water flush per MD * W/ TF, rec lytes daily, replete as needed- HIGH RISK FOR REFEEDING SYNDROME. ADDITIONAL RECOMMENDATIONS: * Calibrated bedscale wt * Monitor NPO status, ability for PEG placement -> Per MD family refused PEG and NGT, goal for palliative care * Monitor lytes * Monitor for hypoglycemia while pt on NPO -> now w/ hyperglycemia
--- NOTE | 2019-03-25 15:15 | NUR ---
*-* DISCHARGE PLANNING *-* PATIENT HAS BEEN REFERRED TO: [facility] P: [phone] F: [phone]
[2019-03-25 16:00] VITALS: BP 102/44
--- NOTE | 2019-03-25 17:26 | NUR ---
*-* DISCHARGE PLANNING *-* PATIENT HAS BEEN REFERRED TO: [facility] P: [phone] F: [phone]
--- NOTE | 2019-03-25 18:58 | NUR ---
Per Da Carcamo: Patient noted to be desaturating under the 70s while on the on the venturi mask, patient had his eyes closed, was not moving around in bed like his usual. RT called. Patient had agonal breathing, suctioned patient. Patient started to be bradycardic rate of 50-40s. Charge nurse informed.
--- NOTE | 2019-03-25 19:09 | NUR ---
PRONOUNCEMENT: No Code. Called to pronounce patient. Absence of spontaneous respirations, no cardiac or breath sounds on auscultation. Pupils fixed and dilated. No carotid pulse or chest movement. Patient at 1909. DR García notified PER Da SIERRA . Family was notified at [place].
--- NOTE | 2019-03-25 19:11 | NUR ---
NURSE NOTES: Peter Carcamo: Pt with no pulse and no breathing. carpet installer Carmen at bedside.
--- NOTE | 2019-03-25 19:15 | NUR ---
NURSE NOTES: Peter Carcamo: Dr. García made aware of patient's passing @ 19:11
[2019-03-25] MEDS ORDERED: Tubing IV Secondary IV ONE (19:21)
[2019-03-25] MEDS ORDERED: D5 1/2NS 1000ml IV ONE (19:21)
--- NOTE | 2019-03-25 19:23 | NUR ---
NURSE NOTES: Per Da Carcamo: [facility] called. Spoke with Lovely, Reference # [id number]
--- NOTE | 2019-03-25 19:38 | Hematology/Onc Progress Note ---
Assessment/Plan Assessment/Plan Assessment and Recs: # Thrombocytopenia -- i have seen him in the past and reviewed platelet trend for the past 1-2 years and this is at an all time low, likely related to infection/reactive process --> plt trend 115-->87-->7-->58-->55-->75-->86-->150-->226 --> smear has been reviewed --> meds are noted --> dw pcp, will HOLD OFF ELIQUIS FOR NOW given also low H/H --> GIVEN PLATELET COUNT STABilizeD, restart eliquis # Anemia due to chronic disease -- hgb trending at 9-11 --> consider anemia panel, reviewed from prior admission --> does not require iron at this time --> hold off on iron --> hgb trend 10.7-->10-->8.1-->8.6-->8.1-->10-->9.7 --> EPOGEN HAS BEEN STARTED # Secondary hypercoagulable disorder, no afib, but has pvd and stroke ppx --> continue if plt >50k and h/h stable # ESRD (end stage renal disease) --> as per Neprho --> TTF --> reviewed Dr. Brandt recs # Hypotension --> fluids as needed # RLL on cxr --> on broad spectrum abx --> as per id # Diabetes --> a1c goal <8, iss, accuchecks # NSTEMI with elev trop may be due to esrd --> as per cards management, asa bb, lipitor # Dysphagia. Family refused PEG --> hold off peg # Respiratory failure on BIPAP. DNR now --> per pulm # Dvt ppx scds ++ eliquis since 03/21 Appreciate consultation and enrique RN Subjective Allergies: Coded Allergies: No Known Allergies (Unverified , 05/25/13) Subjective 03/18/19: remains confused, nonverbal, labs reviewed, meds noted 03/19: no plan for peg, code status unchanged, poor prognosis, labs noted, seen by psych 03/20: awake, no acute events, bipap, cefe, epogen 03/21: no major changes, labs noted, will begin anticoag, remains confused 03/23: worsening cxr, wbc 20.8, no acute events, on apixaban 03/24: labs reviewed, no bleeding noted, no major changes, hgb is 9 03/25: no overnight events, labs reviewed, restraints, to wean off bipap Objective Objective Last 24 Hour Vital Signs Date Time Temp Pulse Resp B/P (MAP) Pulse Ox O2 Delivery O2 Flow Rate FiO2 03/25/19 16:40 95 03/25/19 16:00 Bi-pap 03/25/19 16:00 70 03/25/19 16:00 96.8 72 25 102/44 (63) 91 03/25/19 14:16 108/46 03/25/19 12:00 71 03/25/19 12:00 Bi-pap 03/25/19 12:00 95.5 72 24 108/46 (66) 94 03/25/19 12:00 14.0 55 03/25/19 09:15 72 26 96 Facial 60 03/25/19 08:16 Bi-Pap 80 03/25/19 08:00 80 03/25/19 08:00 92.8 74 26 123/54 (77) 100 03/25/19 08:00 71 03/25/19 08:00 Bi-pap 03/25/19 07:29 71 25 99 Facial 80 75 25 100 Bi-Pap 80 03/25/19 06:00 80 03/25/19 05:26 68 22 99 Facial 80 03/25/19 04:00 67 03/25/19 04:00 Bi-pap 03/25/19 04:00 97.4 64 25 116/69 (85) 100 03/25/19 03:25 67 21 100 Facial 80 03/25/19 01:30 64 23 98 Facial 80 66 21 100 Bi-Pap 80 03/25/19 00:00 Bi-pap 03/25/19 00:00 65 03/25/19 00:00 80 03/25/19 00:00 97.4 68 22 105/46 (65) 99 03/24/19 23:03 69 27 99 Facial 80 03/24/19 21:07 68 21 100 Facial 80 03/24/19 21:00 67 110/50 03/24/19 20:00 67 03/24/19 20:00 97.0 69 25 105/45 (65) 100 03/24/19 20:00 Bi-pap 03/24/19 19:25 67 22 100 Facial 80 64 22 100 Bi-Pap 80 03/24/19 19:25 100 Bi-Pap 80 03/24/19 17:25 68 23 100 Full Face 80 03/24/19 16:00 68 03/24/19 16:00 68 21 100 Full Face 80 03/24/19 16:00 96.1 69 24 110/50 (70) 100 03/24/19 16:00 Bi-pap 03/24/19 16:00 80 03/24/19 14:30 84/42 03/24/19 14:00 110/50 03/24/19 13:30 69 30 100 Full Face 80 03/24/19 12:18 80 03/24/19 12:00 67 03/24/19 12:00 96.8 67 25 95/44 (61) 100 03/24/19 12:00 Bi-pap 03/24/19 11:28 68 33 100 Full Face 80 03/24/19 08:45 68 26 100 Full Face 80 03/24/19 08:22 69 96/41 03/24/19 08:00 83 03/24/19 08:00 80 03/24/19 08:00 Bi-pap 03/24/19 08:00 96.4 69 32 96/41 (59) 99 03/24/19 07:14 67 27 100 Bi-Pap 80 03/24/19 07:13 100 Bi-Pap 80 03/24/19 07:03 67 27 100 Full Face 80 03/24/19 06:00 98/50 03/24/19 05:07 68 30 97 Full Face 80 03/24/19 04:00 97.6 70 32 98/50 (66) 9 03/24/19 04:00 69 03/24/19 04:00 80 03/24/19 04:00 Bi-pap 03/24/19 03:20 71 16 99 Full Face 80 03/24/19 01:30 71 36 98 Facial 80 74 34 99 Bi-Pap 80 03/24/19 00:00 73 03/24/19 00:00 Bi-pap 03/24/19 00:00 80 03/24/19 00:00 97.8 74 34 112/57 (75) 9 03/23/19 23:30 74 31 95 Full Face 80 03/23/19 21:07 77 33 93 Facial 80 03/23/19 21:04 113/70 03/23/19 20:26 80 117/79 03/23/19 20:00 97 Bi-Pap 80 03/23/19 20:00 80 03/23/19 20:00 97.2 74 33 117/79 (92) 98 03/23/19 20:00 Bi-pap 03/23/19 20:00 72 Intake and Output 03/24/19 03/25/19 19:00 07:00 Intake Total 50 ml 655 ml Balance 50 ml 655 ml IV Total 50 ml 655 ml Hemodialysis 0 ml Labs Test 03/22/19 21:30 03/23/19 03:25 03/23/19 09:03 03/24/19 03:40 Arterial Blood pH 7.371 (7.350-7.450) 7.382 (7.350-7.450) Arterial Blood Partial Pressure CO2 53.7 mmHg (35.0-45.0) 52.8 mmHg (35.0-45.0) Arterial Blood Partial Pressure O2 56.3 mmHg (75.0-100.0) 68.7 mmHg (75.0-100.0) Arterial Blood HCO3 30.4 mmol/L (22.0-26.0) 30.7 mmol/L (22.0-26.0) Arterial Blood Oxygen Saturation 86.3 % (95-100) 92.5 % (95-100) Arterial Blood Base Excess 4.3 (-2-2) 4.7 (-2-2) Wyatt Test Positive Positive White Blood Count 20.8 K/UL (4.8-10.8) 16.5 K/UL (4.8-10.8) Red Blood Count 3.10 M/UL (4.70-6.10) 2.86 M/UL (4.70-6.10) Hemoglobin 9.7 G/DL (14.2-18.0) 9.0 G/DL (14.2-18.0) Hematocrit 30.5 % (42.0-52.0) 28.3 % (42.0-52.0) Mean Corpuscular Volume 98 FL (80-99) 99 FL (80-99) Mean Corpuscular Hemoglobin 31.3 PG (27.0-31.0) 31.5 PG (27.0-31.0) Mean Corpuscular Hemoglobin Concent 31.8 G/DL (32.0-36.0) 31.8 G/DL (32.0-36.0) Red Cell Distribution Width 15.2 % (11.6-14.8) 15.2 % (11.6-14.8) Platelet Count 226 K/UL (150-450) 216 K/UL (150-450) Mean Platelet Volume 7.5 FL (6.5-10.1) 7.1 FL (6.5-10.1) Neutrophils (%) (Auto) % (45.0-75.0) % (45.0-75.0) Lymphocytes (%) (Auto) % (20.0-45.0) % (20.0-45.0) Monocytes (%) (Auto) % (1.0-10.0) % (1.0-10.0) Eosinophils (%) (Auto) % (0.0-3.0) % (0.0-3.0) Basophils (%) (Auto) % (0.0-2.0) % (0.0-2.0) Differential Total Cells Counted 100 100 Neutrophils % (Manual) 93 % (45-75) 87 % (45-75) Lymphocytes % (Manual) 3 % (20-45) 5 % (20-45) Monocytes % (Manual) 4 % (1-10) 6 % (1-10) Eosinophils % (Manual) 0 % (0-3) 1 % (0-3) Basophils % (Manual) 0 % (0-2) 1 % (0-2) Band Neutrophils 0 % (0-8) 0 % (0-8) Platelet Estimate Adequate Adequate Platelet Morphology Normal Normal Hypochromasia 1+ 2+ Anisocytosis 1+ 1+ Sodium Level 144 MMOL/L (136-145) 137 MMOL/L (136-145) Potassium Level 4.2 MMOL/L (3.5-5.1) 4.0 MMOL/L (3.5-5.1) Chloride Level 103 MMOL/L (98-107) 101 MMOL/L (98-107) Carbon Dioxide Level 30 MMOL/L (21-32) 28 MMOL/L (21-32) Anion Gap 11 mmol/L (5-15) 8 mmol/L (5-15) Blood Urea Nitrogen 60 mg/dL (7-18) 71 mg/dL (7-18) Creatinine 7.1 MG/DL (0.55-1.30) 7.6 MG/DL (0.55-1.30) Estimat Glomerular Filtration Rate mL/min (>60) mL/min (>60) Glucose Level 199 MG/DL (74-106) 484 MG/DL (74-106) Uric Acid 7.0 MG/DL (2.6-7.2) 7.8 MG/DL (2.6-7.2) Calcium Level 8.9 MG/DL (8.5-10.1) 7.8 MG/DL (8.5-10.1) Phosphorus Level 4.3 MG/DL (2.5-4.9) 4.5 MG/DL (2.5-4.9) Magnesium Level 2.6 MG/DL (1.8-2.4) 2.2 MG/DL (1.8-2.4) Total Bilirubin 0.7 MG/DL (0.2-1.0) 0.5 MG/DL (0.2-1.0) Aspartate Amino Transf (AST/SGOT) 20 U/L (15-37) 20 U/L (15-37) Alanine Aminotransferase (ALT/SGPT) 11 U/L (12-78) 8 U/L (12-78) Alkaline Phosphatase 130 U/L (46-116) 105 U/L (46-116) Troponin I 0.059 ng/mL (0.000-0.056) C-Reactive Protein, Quantitative > 70.0 mg/dL (0.00-0.90) 46.7 mg/dL (0.00-0.90) Pro-B-Type Natriuretic Peptide > 42356 pg/mL (0-125) > 78403 pg/mL (0-125) Total Protein 7.3 G/DL (6.4-8.2) 6.6 G/DL (6.4-8.2) Albumin 2.2 G/DL (3.4-5.0) 1.7 G/DL (3.4-5.0) Globulin 5.1 g/dL 4.9 g/dL Albumin/Globulin Ratio 0.4 (1.0-2.7) 0.3 (1.0-2.7) Lactic Acid Level 1.20 mmol/L (0.4-2.0) Gamma Glutamyl Transpeptidase 25 U/L (5-85) Total Creatine Kinase 22 U/L (26-308) Cortisol AM Sample 12.6 UG/DL Test 03/24/19 04:00 Troponin I 0.027 ng/mL (0.000-0.056) Height (Feet): 5 Height (Inches): 5.00 Weight (Pounds): 130 Objective Vitals: reviewed, normal Gen: no apparent distress, alert, GCS 15, non-toxic HEENT: normocephalic, atraumatic Resp: chest non-tender, lungs clear, normal Bss, BIPAP++ CV: rrr, no edema, no gallop, no JVD, no murmur Gastrointestinal: normal bowel sounds, non tender, soft, non-distended Msk: normal range of motion, non-tender, calf tenderness, + AV access LUE + thrill + bruit Neurologic: alert, oriented x3, responsive Psychiatric: judgement/insight normal, memory normal, depressed affect Reflexes: 3+ knee (L), 3+ ankle (R) Skin: normal color, no rash, warm/dry, well hydrated Lymphatic: no trip Gigi Aguirre MD Mar 25, 2019 19:38
--- NOTE | 2019-03-25 20:58 | General Progress Note ---
Assessment/Plan Assessment/Plan: Assessment - Failed swallow, aspiration risk - resp failure - still too high a risk for EGD - NSTEMI - thrombocytopenia - PNA - CAD - ESRD, HD - OBS - Terminal prognosis Recommendations - Pulmonary f/u - follow resp parameters closely - no plans for PEG - comfort measures / terminal care Subjective Allergies: Coded Allergies: No Known Allergies (Unverified , 05/25/13) Subjective Above noted patient see early am, subsequent to visit on BIPAP off feeds doing poorly DNR status Objective Last 24 Hour Vital Signs Date Time Temp Pulse Resp B/P (MAP) Pulse Ox O2 Delivery O2 Flow Rate FiO2 03/25/19 16:40 95 03/25/19 16:00 Bi-pap 03/25/19 16:00 70 03/25/19 16:00 96.8 72 25 102/44 (63) 91 03/25/19 14:16 108/46 03/25/19 12:00 71 03/25/19 12:00 Bi-pap 03/25/19 12:00 95.5 72 24 108/46 (66) 94 03/25/19 12:00 14.0 55 03/25/19 09:15 72 26 96 Facial 60 03/25/19 08:16 Bi-Pap 80 03/25/19 08:00 80 03/25/19 08:00 92.8 74 26 123/54 (77) 100 03/25/19 08:00 71 03/25/19 08:00 Bi-pap 03/25/19 07:29 71 25 99 Facial 80 75 25 100 Bi-Pap 80 03/25/19 06:00 80 03/25/19 05:26 68 22 99 Facial 80 03/25/19 04:00 67 03/25/19 04:00 Bi-pap 03/25/19 04:00 97.4 64 25 116/69 (85) 100 03/25/19 03:25 67 21 100 Facial 80 03/25/19 01:30 64 23 98 Facial 80 66 21 100 Bi-Pap 80 03/25/19 00:00 Bi-pap 03/25/19 00:00 65 03/25/19 00:00 80 03/25/19 00:00 97.4 68 22 105/46 (65) 99 03/24/19 23:03 69 27 99 Facial 80 03/24/19 21:07 68 21 100 Facial 80 03/24/19 21:00 67 110/50 Intake and Output 03/24/19 03/25/19 18:59 06:59 Intake Total 0 ml 655 ml Balance 0 ml 655 ml IV Total 655 ml Hemodialysis 0 ml Height (Feet): 5 Height (Inches): 5.00 Weight (Pounds): 130 Objective Elderly man, seen early am, subsequently opens eyes to exam NCAT, (+) BIPAP supple Coarse carmencita RR Abd soft ND Mann Aguilar MD Mar 25, 2019 20:58
--- NOTE | 2019-03-25 21:11 | NUR ---
NURSE NOTES: Peter Carcamo: Pt with no pulse and no breathing. display artist Carmen at bedside.
--- NOTE | 2019-03-25 21:12 | NUR ---
NURSE NOTES: Notes above error in time.
--- NOTE | 2019-03-26 00:15 | NUR ---
[facility]SE NOTES[facility].
[2019-03-26] MEDS ORDERED: Epoetin Alfa-EPBX(ESRD on dialysis)3000 units/ml vial SUBQ SCH (21:00)
[2019-03-26] MEDS ORDERED: Epoetin Alfa-EPBX(ESRD on dialysis)2000 units/ml vial SUBQ SCH (21:00)
--- NOTE | 2019-03-27 08:47 | Discharge Summary ---
Discharge Summary Discharge Summary _ SUMMARY DATE OF ADMISSION: 03/08/2019 DATE OF DISCHARGE: 03/25/2019 REASON FOR ADMISSION: 83 years old male with past medical history of hypertension, end-stage renal disease, on hemodialysis, history of CVA, BPH, hyperlipidemia, hypertension, diabetes mellitus, recent pneumonia, was on dialysis when he started to feel lightheadedness. He denied chest pain. He reported mild shortness of breath. No fever or chills . Shortly after initial evaluation patient was admitted for possible NSTEMI , lactic acidosis and hemodialysis disequilibrium syndrome. Patient started on Lovenox, provided with aspirin and admitted to telemetry floor for further management. In addition patient had hypotensive episode and received 500 cc bolus. CONSULTANTS: franchise consultant Dr. Friedman pulmonary Dr. Cornelius ID specialist Dr Tee GI specialist Dr. Aguilar natural gas trader Dr. Brandt agronomy advisor/oncologist Dr. Aguirre cigar bander psychiatrist [place] [employer] [facility] COURSE: Patient admitted to monitored floor. Establishment Guide followed. Echocardiogram revealed global left ventricular hypokinesis with left ventricular ejection fraction estimated to be 40 to 45%. Moderately elevated left atrial pressure grade 2. Mild to moderate aortic regurgitation. Mild to moderate mitral regurgitation. Right ventricular systolic pressure of 81 consistent with severe pulmonary hypertension. Serial troponin trended up to maximum 3.534 , and then started to trend down. Patient started on antiplatelet therapy with aspirin. Beta-rubia , nitrate and statin provided. Establishment Guide recommended conservative medical treatment. Guideline directed medical therapy for congestive heart failure provided with beta-rubia, BRYAN inhibitor and hemodialysis. Anticoagulation with Eliquis continued for CVA and PVD. No atrial fibrillation , no DVT no PE. Dialysis provided as per natural gas trader recommendation with close monitoring of volumes and cardiorenal parameters. Albumin boluses provided as needed. Electrolytes corrected as needed. Respiratory status worsened. ABG revealed evidence of hypoxic and hypercapnic respiratory failure. Patient was placed on the BiPAP. Supplemental oxygen titrated to keep pulse oximetry above 90% . Pulmonary toilet with bronchodilator provided. Antibiotic continued as per ID specialist. Volumes were closely monitored. Patient was followed -up with ABG and required placement on the BiPAP , secondary to hypoxic hypercapnic respiratory failure . Venous duplex bilateral lower extremity revealed no evidence of acute DVT. Patient was followed -up with a chest x-ray. Antibiotics provided as per ID specialist recommendation for pneumonia. Patient failed swallow evaluation. Patient subsequently undergone video swallow evaluation, which revealed high aspiration risk. NG tube was inserted, and tube feeding started with strict aspiration precautions,. Poor prognosis was discussed with family. Family declined aggressive measurement and wanted patient to be comfortable . CODE STATUS was subsequently changed to DNR/DNI on 03/17. Thrombocytopenia was likely related to infection/reactive process. Peripheral smear had been reviewed. Platelets eventually trended up to normal.. Eliquis was on hold given low hemoglobin and hematocrit. Anemia work-up was done on prior admission and was consistent with anemia of chronic disease. Hemoglobin and hematocrit were closely monitored with goal to keep hemoglobin above 7. Patient started on Epogen. Per cigar bander, no need for diabetic medication. Blood sugar was closely monitored. Hypoglycemia protocol was in order. GI specialist followed. Supportive care provided. No plan for PEG given advanced a, DNR status and overall poor clinical condition. Bowel regimen instituted. Per psychiatrist , patient had acute encephalopathy and dementia with behavioral disturbances. Psychiatric medication regimen was optimized. Family further declined NGT or PEG . Diet for oral gratification provided as per ST recommendation with strict aspiration precautions. Patient condition was rapidly deteriorated. On 03/23 he developed leukocytosis. Chest x-ray showed worsening pneumonia/ pulmonary edema. Family requested comfort care Patient was clinically deteriorating. Patient was pronounced at 19:09 on 03/25 . Cause of : cardiopulmonary arrest FINAL DIAGNOSIS Acute respiratory failure with hypoxia and hypercapnia NSTEMI Cardiomyopathy with ejection fraction 40% Systolic CHF Leukocytosis Lactic acidosis Pneumonia, probably aspiration Dysphagia Thrombocytopenia Anemia of chronic kidney disease Diabetes with persistent hypoglycemia Acute encephalopathy Dementia with behavioral disturbances. Vascular dementia History of CVA End-stage renal disease , on hemodialysis Hemodialysis disequilibrium syndrome History of hypertension Hyperlipidemia Coronary artery disease History of CVA BPH I have been assigned to dictate discharge summary for this account. I was not involved in the patient's management. Юлия Webb NP Mar 27, 2019 08:47
--- NOTE | 2019-03-28 11:45 | Progress Note ---
DATE: 03/25/2019 SUBJECTIVE: The patient is the same. Decreased agitation. The patient was seen on 03/25/2019. MENTAL STATUS EXAMINATION: The patient is alert, confused The patient still is having waxing and waning consciousness, episodes of agitation. His restraints were discontinued in the morning as the patient has been calmer MENTAL STATUS EXAMINATION: The patient has waxing and waning consciousness, confused, disoriented. Mood is neutral to anxious. Affect is flat. Thought process, there is a paucity of thought content. Thought content, no suicidal or homicidal ideation. Cognition is impaired. Insight and judgment are non-existent. ASSESSMENT: 1. CVA. 2. Vascular dementia. 3. Acute encephalopathy. PLAN: Continue the psychotropic medication. Zi Carrera M.D. DR: MANJINDER JOB#: [id number] CC: [id number]
== END 2019-03-25 19:22 | disposition expired ==
LOC: EDBD 01:00 → EMR 01:17 → 2E 02:32 → EDBEDREQ 04:11 → 2E 08:16 → 2W 03-09 06:20
PROC: 5A1D70Z Performance of Urinary Filtration, Intermittent, Less than 6 Hours Per Day (ICD-10-PCS; principal; 2019-03-09)
DX: I21.4 Non-ST elevation (NSTEMI) myocardial infarction (principal); N18.6 End stage renal disease; J69.0 Pneumonitis due to inhalation of food and vomit; J96.01 Acute respiratory failure with hypoxia; J96.02 Acute respiratory failure with hypercapnia; E43 Unspecified severe protein-calorie malnutrition; I13.2 Hypertensive heart and chronic kidney disease with heart failure and with stage 5 chronic kidney disease, or end stage renal disease; I50.20 Unspecified systolic (congestive) heart failure; I42.9 Cardiomyopathy, unspecified; F03.91 Unspecified dementia, unspecified severity, with behavioral disturbance; D68.69 Other thrombophilia; G93.40 Encephalopathy, unspecified; E87.8 Other disorders of electrolyte and fluid balance, not elsewhere classified; E11.22 Type 2 diabetes mellitus with diabetic chronic kidney disease; Z99.2 Dependence on renal dialysis; E11.649 Type 2 diabetes mellitus with hypoglycemia without coma; Z86.73 Personal history of transient ischemic attack (TIA), and cerebral infarction without residual deficits; N40.0 Benign prostatic hyperplasia without lower urinary tract symptoms; I25.10 Atherosclerotic heart disease of native coronary artery without angina pectoris; D69.6 Thrombocytopenia, unspecified; D63.1 Anemia in chronic kidney disease; I95.9 Hypotension, unspecified; R13.10 Dysphagia, unspecified; Z66 Do not resuscitate; Z68.21 Body mass index [BMI] 21.0-21.9, adult; Z51.5 Encounter for palliative care
CPT/HCPCS: 36415; 36600; 71045; 74018; 74230; 80048; 80053; 80061; 80076; 82533; 82550; 82803; 82962; 82977; 83036; 83605; 83690; 83735; 83880; 84100; 84153; 84443; 84484; 84550; 85007; 85025; 85610; 85730; 86140; 86706; 87040; 87070; 87081; 87205; 92610; 93005; 93970; 94640; 94660; 94664; 99291; J1815; J2405; J7030; J7620; J8499; S5561